=== PATIENT | female | born 1945 | race Caucasian/White ===

== ENCOUNTER 2018-06-10 16:12 | Outpatient (REF) | payer OTHER, SELFPAY ==
--- NOTE | 2018-06-10 15:00 | PAPNONF_PTH ---
PATIENT: Elizabeth Chester LOC: [facility] U#:[id number] AGE/SX: 73/F ROOM: RE06/10/[address]: Marleen Warren : 1945 BED: DIS: 06/10/2018 SPEC #: [id number] RECD: 06/11/18 12:58 STATUS: SD REJazlyn #: [id number] CARROL: 06/10/18 15:[address]: Marleen Warren DEPT: [facility] Cytology RECD BY: Nathaly Marks Tissues: 1 - BODY FLUID CYTO(SPUTUM/URINE)UV Procedures: BODY FLUID CYTO(URINE/SPUTUM) Comments: [id number] (TOTAL VOLUME = 90 ml's) (45 ml's URINE & 45 ml's CYTOLYT ADDED IN 2 CONTAINERS)
== END 2018-06-10 16:32 ==
LOC: NCHCN 16:12
PROVIDERS: PCP Family Medicine; Visit Provider Family Medicine
DX: R31.0 Gross hematuria (principal); R82.8 Abnormal findings on cytological and histological examination of urine
CPT/HCPCS: 88104

== ENCOUNTER 2018-07-20 15:42 | Outpatient (REF) | payer OTHER, MEDICAID, SELFPAY ==
[2018-07-20 18:41] LABS: Abs Immature Grans 0.02 k/cumm (0.0-0.09); Absolute Basophil Count 0.02 k/cumm (0.0-0.2); Absolute Eosinophil Count 0.13 k/cumm (0.0-0.7); Absolute Lymphocyte Count 1.35 k/cumm (1.2-3.4); Absolute Monocyte Count 0.58 k/cumm (0.11-0.7); Absolute Neutrophil Count 6.59 k/cumm (1.2-6.7); Basophils % 0.2; Eosinophils % 1.5; HCT 42.8 % (36.0-46.0); Immature Grans % 0.2; Lymphocytes % 15.5; Mean Corp. HGB Concentration 32.7 g/dL (32.0-36.0); Mean Corpuscular Hemoglobin 31.4 pg (27.0-33.0); Mean Platelet Volume 10.7 fL (8.0-11.0); Monocytes % 6.7; Neutrophils % 75.9; Platelet Count 281 x1000/uL (130-400); RBC 4.46 m/cumm (4.00-5.20); White Blood Cell Count 8.69 k/cumm (4.4-10.8)
[2018-07-20 18:59] LABS: ALT 24 U/L (12-78); AST 20 U/L (15-37); Albumin 3.2 g/dL (3.4-5.0); Alkaline Phosphatase 82 U/L (46-116); Anion Gap 11.7 mmol/L (3-11); BUN 13 mg/dL (7-18); Bilirubin, Total 0.3 mg/dL (0.2-1.0); CO2 27.3 mmol/L (21.0-32.0); CREATININE 1.03 mg/dL (0.55-1.02); Calcium 9.3 mg/dL (8.5-10.1); Chloride 96 mmol/L (98-107); Estimated GFR 52.53 (mL/min/1.73m2); Glucose 446 mg/dL (70-100); Potassium 4.3 mmol/L (3.5-5.1); Sodium 135 mmol/L (136-145); TSH (W/Ref FT4) 1.78 uIU/mL (0.358-3.74); Total Protein 6.8 g/dL (6.4-8.2)
== END 2018-07-20 16:02 ==
LOC: NCHCN 15:42
PROVIDERS: PCP Family Medicine; Visit Provider Family Medicine
DX: I10 Essential (primary) hypertension (principal); R53.81 Other malaise; R31.0 Gross hematuria
CPT/HCPCS: 80053; 84443; 85025

== ENCOUNTER 2018-07-25 15:52 | Outpatient (REF) | payer OTHER, MEDICAID, SELFPAY ==
[2018-07-27 11:19] LABS: Campylobacter PCR SEE COMMENTS; Salmonella PCR SEE COMMENTS; Shiga Toxin PCR SEE COMMENTS; Shigella/Enteroinvasive Ecoli SEE COMMENTS
== END 2018-07-25 16:12 ==
LOC: NCHCN 15:52
PROVIDERS: PCP Family Medicine; Visit Provider Family Medicine
DX: R19.7 Diarrhea, unspecified (principal)
CPT/HCPCS: 87329; 87505; 83630; 85613; 87324

== ENCOUNTER 2018-10-05 20:16 | Inpatient (IN) | payer MEDICARE, MEDICAID, SELFPAY ==
[2018-10-05] VITALS (35 sets, daily range): BP systolic 87–135; BP diastolic 32–104; PULSE 88–124; RESP 13–38; TEMP 36.5–37.4; O2SAT 92–95
--- NOTE | 2018-10-05 20:27 | DI.RAD_ITS ---
SYMPTOM/DIAGNOSIS: WEAKNESS, TACHYCARADIA, R/O PNEUMONIA AP AND LATERAL CHEST: Comparison is made with 15 Jan 2017. The heart is enlarged. Abdominal soft tissues partially obscure the lung bases on the AP view. There are mild underlying fibrotic changes. No superimposed infiltrate, effusion or pulmonary edema seen. IMPRESSION: No acute abnormality.
--- NOTE | 2018-10-05 20:36 | ED.GENADUL_ITS ---
Discharge Plan Disposition Patient Disposition: [facility] INPATIENT Condition: Stable Discharge Details Chief Complaint: Nausea/Vomit/Diar Clinical Impression: Atrial fibrillation with rapid ventricular response, UTI (urinary tract infection), Vomiting, Dehydration Primary Care Provider: Marleen Warren ED Provider: Lynne Caputo Home Meds and New Rx's Prescriptions: No Action multivitamin [Daily Value] 1 EACH tablet 1 ea PO DAILY RF: 0 metformin 500 MG tablet 1,000 mg PO BID RF: 0 lutein 20 MG capsule 20 mg PO DAILY RF: 0 Xolegel 45 GM gel 45 gm Topical PRN PRNRF: 0 Victoza 2-Tree 0.6 MG/0.1 ML pen injector 1.8 mg SQ DAILY RF: 0 melatonin 10 MG capsule 10 mg PO HS RF: 0 mecobalamin (vitamin B12) 1,000 MCG tablet,disintegrating 1,000 mcg Sublingual DAILY RF: 0 ascorbic acid (vitamin C) [Vitamin C] 1,000 MG tablet extended release 1,000 mg PO DAILY RF: 0 cholecalciferol (vitamin D3) 1,000 UNIT capsule 1,000 unit PO DAILY RF: 0 omega-3 fatty acids-fish oil [Fish Oil] 1 EACH capsule 1 ea PO DAILY RF: 0 Calcium Magnesium 1 EACH tablet 1 ea PO RF: 0 losartan 50 MG tablet 50 mg PO DAILY RF: 0 celecoxib [Celebrex] 200 MG capsule 200 mg PO DAILY RF: 0 metoprolol tartrate 100 MG tablet 100 mg PO BID RF: 0 prednisone 5 MG tablet 5 mg PO DAILY RF: 0 diazepam 2 MG tablet 2 mg PO Q6H PRN RF: 0 Co [id number] E-Fish Oil 1 EACH capsule 1 cap PO DAILY RF: 0 duloxetine [Cymbalta] 60 MG capsule,delayed release(DR/EC) 60 mg PO DAILY RF: 0 Livalo 2 MG tablet 2 mg PO DAILY RF: 0 Pradaxa 150 MG capsule 150 mg PO BID RF: 0 Novolog Flexpen U-100 Insulin 100 UNIT/ML insulin pen SQ TID RF: 0 Lantus Solostar U-100 Insulin 100 UNIT/ML insulin pen 90 unit SQ QAM RF: 0 Medical Decision Making 73-year-old female with a history of morbid obesity, atrial for ablation, diabetes, hyperlipidemia, high cholesterol who presents with weakness this evening, diarrhea for the past 2 weeks and vomiting for 1 day both of which have been resolved. Heart rate 160s on arrival per EMS, decreased to 140s in route and given 5 mg metoprolol IV. Glucose 203. Patient has not taken any of her evening medications. Heart rate on arrival 110s to 120s, increased to 140s with any movement in bed. Patient is morbidly obese. Remainder vitals within normal limits. She appears nontoxic. No focal deficits. No evidence of trauma on exam. Abdomen soft nontender. We will give patient her evening dose of metoprolol 100 mg. We will check cardiac work-up, chest x-ray, urinalysis. No evidence of trauma do not see an indication for further imaging due to lack of reported injury. We will continue IV fluids. EKG notes a rate of 130s in atrial fibrillation. No acute ST findings. 2129 --labs and imaging reviewed. Normal white blood cell count. Sodium 130. Glucose 213. Normal bicarb. Magnesium 1.3. Troponin negative. Urinalysis notes UTI. Chest x-ray unremarkable. Heart rate still in the 110s to 130s. Suspect this may be also associated with dehydration and infection. BP stable. We will give a dose of Cardizem IV. 2154 --heart rate improved to high 90s to low 100s. concerned with patient going home due to her extreme weakness. Lactate 2.3. In setting of UTI, persistent tachycardia not relieved with patient's oral medication, will admit for IV fluids, IV antibiotics and PT and reassessment of electrolytes in am. 2199 --Case discussed with hospitalist -accepts patient for admission. Medical Records Medical records reviewed: Yes I reviewed the patient's medical records. Imaging Data Radiologic Study: Radiologist's impression: XR Chest, 2 Views EXAM DATE/TIME: 10/05/2018 8:28 PM CLINICAL HISTORY: 73 years old, female; Other: Tachycardia, weakness; Patient HX: Weakness, tachycardia; Per PT: Cough 3 days; Additional info: R/O pneumonia TECHNIQUE: Imaging protocol: XR of the chest, 2 views. COMPARISON: CR PORTABLE CHEST ONE VIEW 01/15/2017 9:10 AM FINDINGS: Lungs: There is coarsening of the perihilar interstitial markings. No focal consolidation or pulmonary edema. Pleural space: No pleural effusion. No pneumothorax. Heart/Mediastinum: There is mild cardiomegaly, stable. Bones/joints: Symmetric degenerative changes of the acromioclavicular joints. No acute osseous finding. Soft tissues: No focal soft tissue abnormailty. IMPRESSION: 1. No focal consolidative airspace disease. Coarsening of the perihilar interstitial markings. 2. Mild cardiomegaly. Lab Data Lab results reviewed: Yes I reviewed the patient's lab results. 10/05/18 21:31 Blood Blood Culture - Pending 10/05/18 21:18 Blood Blood Culture - Pending 10/05/18 20:30 Urine - Reflex from Ua Urine Culture - Pending Laboratory Tests Range/Units 10/05/18 10/05/18 10/05/18 20:30 20:35 20:35 WBC (4.4-10.8) k/cumm 10.02 RBC (4.00-5.20) m/cumm 4.31 Hgb (12.0-15.5) g/dL 13.6 Hct (36.0-46.0) % 40.2 MCV (80-95) fL 93.3 MCH (27.0-33.0) pg 31.6 MCHC (32.0-36.0) g/dL 33.8 RDW (11.7-14.6) % 14.3 Plt Count (130-400) x1000/uL 206 MPV (8.0-11.0) fL 9.5 Immature Gran % 0.4 Neutrophils % 85.1 Lymphocytes % 7.0 Monocytes % 7.1 Eosinophils % 0.3 Basophils % 0.1 Absolute Neutrophils (1.2-6.7) k/cumm 8.53 H Absolute Lymphocytes (1.2-3.4) k/cumm 0.70 L Absolute Monocytes (0.11-0.7) k/cumm 0.71 H Absolute Eosinophils (0.0-0.7) k/cumm 0.03 Absolute Basophils (0.0-0.2) k/cumm 0.01 Sodium (136-145) mmol/L 130 L Potassium (3.5-5.1) mmol/L 4.1 Chloride (98-107) mmol/L 94 L Carbon Dioxide (21.0-32.0) mmol/L 25.8 Anion Gap (3-11) mmol/L 10.2 BUN (7-18) mg/dL 14 Creatinine (0.55-1.02) mg/dL 0.96 Estimated GFR/1.73 m2 (mL/min/1.73m2) 56.97 Glucose (70-100) mg/dL 213 H Lactate (0.6-1.4) mmol/l Calcium (8.5-10.1) mg/dL 9.3 Magnesium (1.8-2.4) mg/dL 1.3 L Total Bilirubin (0.2-1.0) mg/dL 1.2 H AST (15-37) U/L 21 ALT (12-78) U/L 24 Alkaline Phosphatase (46-116) U/L 96 Troponin I (0.00-0.06) ng/mL < 0.05 Total Protein (6.4-8.2) g/dL 7.1 Albumin (3.4-5.0) g/dL 2.7 L Urine Color (Yellow) Yellow Urine Clarity (Clear) Sl cloudy Urine pH (5-8) 5.5 Ur Specific [place] (1.005-1.025) 1.020 Urine Protein (Negative) mg/dL 30 H Urine Ketones (Negative) mg/dL Negative Urine Blood (Negative) Moderate H Urine Nitrite (Negative) Positive H Urine Bilirubin (Negative) Negative Urine Urobilinogen (Up TO 0.2) EU/dL 1.0 H Ur Leukocyte Esterase (Negative) Small H Urine RBC Not Applicable Urine WBC (0-5) HPF >50 Ur Epithelial Cells Not Applicable Urine Crystals Not Applicable Urine Bacteria (Negative) HPF Packed Urine Mucus Not Applicable Ur Culture Indicated? Yes Urine Glucose (Negative) mg/dL Negative Range/Units 10/05/18 21:18 WBC (4.4-10.8) k/cumm RBC (4.00-5.20) m/cumm Hgb (12.0-15.5) g/dL Hct (36.0-46.0) % MCV (80-95) fL MCH (27.0-33.0) pg MCHC (32.0-36.0) g/dL RDW (11.7-14.6) % Plt Count (130-400) x1000/uL MPV (8.0-11.0) fL Immature Gran % Neutrophils % Lymphocytes % Monocytes % Eosinophils % Basophils % Absolute Neutrophils (1.2-6.7) k/cumm Absolute Lymphocytes (1.2-3.4) k/cumm Absolute Monocytes (0.11-0.7) k/cumm Absolute Eosinophils (0.0-0.7) k/cumm Absolute Basophils (0.0-0.2) k/cumm Sodium (136-145) mmol/L Potassium (3.5-5.1) mmol/L Chloride (98-107) mmol/L Carbon Dioxide (21.0-32.0) mmol/L Anion Gap (3-11) mmol/L BUN (7-18) mg/dL Creatinine (0.55-1.02) mg/dL Estimated GFR/1.73 m2 (mL/min/1.73m2) Glucose (70-100) mg/dL Lactate (0.6-1.4) mmol/l 2.3 H Calcium (8.5-10.1) mg/dL Magnesium (1.8-2.4) mg/dL Total Bilirubin (0.2-1.0) mg/dL AST (15-37) U/L ALT (12-78) U/L Alkaline Phosphatase (46-116) U/L Troponin I (0.00-0.06) ng/mL Total Protein (6.4-8.2) g/dL Albumin (3.4-5.0) g/dL Urine Color (Yellow) Urine Clarity (Clear) Urine pH (5-8) Ur Specific [place] (1.005-1.025) Urine Protein (Negative) mg/dL Urine Ketones (Negative) mg/dL Urine Blood (Negative) Urine Nitrite (Negative) Urine Bilirubin (Negative) Urine Urobilinogen (Up TO 0.2) EU/dL Ur Leukocyte Esterase (Negative) Urine RBC Urine WBC (0-5) HPF Ur Epithelial Cells Urine Crystals Urine Bacteria (Negative) HPF Urine Mucus Ur Culture Indicated? Urine Glucose (Negative) mg/dL ECG Data Attestation: I personally reviewed and interpreted this ECG (s) as follows: Interpretation: Rate of 126, atrial fibrillation, no acute ST elevation or depression. QTc 442. QRS 96. HPI General Mode of arrival: EMS . Date/Time Provider Initiated Documentation: 10/05/18 20:25 . Limitations to Documentation: no limitations . Information obtained by: patient and family . HPI Narrative: Patient is a 73-year-old female with history of atrial fibrillation, diabetes, hypertension, hyperlipidemia who presents with episode of weakness tonight causing inability to ambulate and her lowered herself to the ground and she was unable to get up. Patient admits to 2 weeks of diarrhea which has been stopped recently and now she is more constipated. She states her last bowel movement was today. She also admits to vomiting multiple times a few days ago but has not vomited for the past 2 days. She states since then she has not been eating much and felt more weak. She states this evening she got up to walk to the bathroom and felt weak and could not walk any farther and her lowered her slowly to the ground. She denies any injury to her head, extremities or torso. She denies any chest pain, shortness of breath or dizziness prior to this. She states she has chronic shortness of breath but states is no worse than usual. She denies any known fever, urinary symptoms or abdominal pain. She states yesterday she had significant abdominal pain but states this has been resolved since then. She has not taken any of her evening medications this evening yet. EMS states her heart rate was 160s for which they gave 5 mg of metoprolol IV. Glucose 203. Denies recent antibiotics or travel. Related Data Home Medications Medication Instructions Recorded Confirmed Co E-24-Hvcutol E-Fish Oil 1 cap PO DAILY 07/21/13 10/05/18 Lantus Solostar U-100 Insulin 90 unit SQ QAM 07/21/13 10/05/18 Novolog Flexpen U-100 Insulin 0 unit SQ TID 07/21/13 10/05/18 Pradaxa 150 mg PO BID 07/21/13 01/13/17 celecoxib [Celebrex] 200 mg PO DAILY 07/21/13 10/05/18 diazepam 2 mg PO Q6H PRN 07/21/13 10/05/18 duloxetine [Cymbalta] 60 mg PO DAILY 07/21/13 10/05/18 losartan 50 mg PO DAILY 07/21/13 10/05/18 metoprolol tartrate 100 mg PO BID 07/21/13 10/05/18 pitavastatin calcium [Livalo] 2 mg PO DAILY 07/21/13 10/05/18 prednisone 5 mg PO DAILY 07/21/13 10/05/18 Victoza 2-Tree 1.8 mg SQ DAILY ml 12/23/16 10/05/18 Xolegel 45 gm TOPICAL PRN PRN script 12/23/16 10/05/18 lutein 20 mg PO DAILY 12/23/16 10/05/18 mecobalamin (vitamin B12) 1,000 mcg SUBLINGUAL DAILY 12/23/16 10/05/18 melatonin 10 mg PO HS 12/23/16 10/05/18 metformin 1,000 mg PO BID tab-cap 12/23/16 10/05/18 multivitamin [Daily Value] 1 ea PO DAILY 12/23/16 10/05/18 Ca carb-Ca gluc-Mg ox-Mg gluco 1 ea PO 10/31/17 [Calcium Magnesium Caplet] ascorbic acid (vitamin C) [Vitamin 1,000 mg PO DAILY 10/31/17 10/05/18 C] cholecalciferol (vitamin D3) 1,000 unit PO DAILY 10/31/17 10/05/18 omega-3 fatty acids-fish oil [Fish 1 ea PO DAILY 10/31/17 10/05/18 Oil 1,000 Mg Capsule] Allergies Allergy/AdvReac Type Severity Reaction Status Date / Time atorvastatin AdvReac Intermediate leg cramps Unverified 10/05/18 20:45 lisinopril AdvReac Intermediate cough Unverified 10/05/18 20:45 General Stated Complaint: Nausea/Vomit/Diar REGAN: 2 Review of Systems Review of Systems All systems reviewed & are unremarkable except as noted in HPI and below Constitutional Reports as per HPI, Denies chills and Denies fever(s) Eyes Denies blurry vision ENT Denies dizziness, Denies sore throat and Denies throat swelling Cardiovascular Denies chest pain and Denies dyspnea Respiratory Denies cough and Denies dyspnea Gastrointestinal Denies abdominal pain, Denies diarrhea and Reports vomiting Genitourinary Denies hematuria and Denies dysuria Musculoskeletal Denies back pain and Denies numbness Integumentary/Breasts Denies lesions and Denies rash Neurologic Denies dizziness, Denies focal weakness and Denies numbness Allergic/Immunologic Denies throat swelling PFSH Medical History Hx of hyperlipidemia (Acute) Atrial fibrillation (Chronic) Diabetes (Chronic) HTN (hypertension) (Chronic) Surgical History History of hysterectomy (Chronic) Hx of cholecystectomy (Chronic) Social History Smoking/Tobacco Use Status: Former Tobacco Use Drug use: Never Additional Social history: unable to assess. in room Exam Const General: cooperative and no acute distress Nutritional Appearance: obese morbidly obese [facility] Head: normal to inspection Ears: hearing grossly normal bilaterally General nose exam: external nose normal Face and sinus: normal facial exam Mouth: mucous membranes dry Eyes General: appearance normal, both eyes and all related structures Pupils: PERRL EOM: EOM intact bilaterally Neck Neck: normal visual inspection and No submandibular swelling Lymphatic: no lymphadenopathy noted Chest Chest: normal inspection of the chest and no tenderness Resp Effort & Inspection: normal respiratory effort and able to speak in complete sentences Auscultation: clear to auscultation bilaterally Cardio Rate: regular rate Rhythm: regular rhythm GI Inspection: normal to inspection Palpation: soft, not firm, not rigid and nontender Auscultation: normal bowel sounds Back/Spine/Pelvis Cervical Spine: No cervical spinal tenderness Thoracic/Lumbar Spine: thoracic and lumbar spine normal to inspection, No thoracic spinal tenderness and No lumbar spinal tenderness Pelvis: no pain with anterior-posterior compression Skin General skin exam: no rashes or lesions noted Neuro General: alert, awake and oriented x3 Cognition: normal cognition Speech: speech normal Motor: muscle tone normal throughout Sensory Exam: no sensory deficits noted Extrem General: normal to inspection, full ROM, normal capillary refill, no calf tenderness bilaterally and no edema Other: No evidence of trauma to bilateral upper or lower extremities. No pelvic instability. No tenderness to palpation of bilateral hips or knees. Psych Appearance: grossly normal Mental Status: mental status grossly normal Speech and Movement: speech and movement normal Affect: normal affect Course Vital Signs Temperature 97.7 F 10/05/18 20:19 Pulse 117 H 10/05/18 20:19 Respiratory Rate 18 10/05/18 20:19 Blood Pressure 130/89 10/05/18 20:19 Pulse Oximetry 95 10/05/18 20:19 Temperature 97.7 F 10/05/18 20:19 Temperature Source Temporal Artery Scan 06/24/19 20:19 Pulse 117 H 10/05/18 20:19 Respiratory Rate 18 10/05/18 20:19 Respiratory Effort 10/05/18 20:19 Blood Pressure 130/89 10/05/18 20:19 Blood Pressure Position Sitting 10/05/18 20:19 Pulse Oximetry 95 10/05/18 20:19 Oxygen Delivery Method Room Air 10/05/18 20:19 Oxygen Flow Rate 0 10/05/18 20:19
[2018-10-05 20:41] LABS: Abs Immature Grans 0.04 k/cumm (0.0-0.09); Absolute Basophil Count 0.01 k/cumm (0.0-0.2); Absolute Eosinophil Count 0.03 k/cumm (0.0-0.7); Absolute Monocyte Count 0.71 k/cumm (0.11-0.7); Absolute Neutrophil Count 8.53 k/cumm (1.2-6.7); Basophils % 0.1; Eosinophils % 0.3; HCT 40.2 % (36.0-46.0); HGB 13.6 g/dL (12.0-15.5); Immature Grans % 0.4; Mean Corp. HGB Concentration 33.8 g/dL (32.0-36.0); Mean Corpuscular Hemoglobin 31.6 pg (27.0-33.0); Mean Corpuscular Volume 93.3 fL (80-95); Mean Platelet Volume 9.5 fL (8.0-11.0); Monocytes % 7.1; Neutrophils % 85.1; Platelet Count 206 x1000/uL (130-400); RBC 4.31 m/cumm (4.00-5.20); RBC Distribution Width 14.3 % (11.7-14.6); White Blood Cell Count 10.02 k/cumm (4.4-10.8)
[2018-10-05] MEDS: Metoprolol 50 MG TAB 100 MG PO (20:43)
[2018-10-05] MEDS: Normal Saline 250 ML IV (20:43)
[2018-10-05 20:47] LABS: Bilirubin Negative (Negative); Blood Moderate (Negative); Clarity Sl Cloudy (Clear); Glucose Negative (Negative); Ketones Negative (Negative); Leukocyte Esterase Small (Negative); Nitrite Positive (Negative); pH 5.5 (5-8)
[2018-10-05 20:58] LABS: WBC >50 HPF (0-5)
[2018-10-05 20:59] LABS: Bacteria Packed HPF (Negative); C & S Indicated? Yes
[2018-10-05 21:01] LABS: ALT 24 U/L (12-78); AST 21 U/L (15-37); Albumin 2.7 g/dL (3.4-5.0); Alkaline Phosphatase 96 U/L (46-116); Anion Gap 10.2 mmol/L (3-11); BUN 14 mg/dL (7-18); Bilirubin, Total 1.2 mg/dL (0.2-1.0); CO2 25.8 mmol/L (21.0-32.0); CREATININE 0.96 mg/dL (0.55-1.02); Calcium 9.3 mg/dL (8.5-10.1); Chloride 94 mmol/L (98-107); Estimated GFR 56.97 (mL/min/1.73m2); Glucose 213 mg/dL (70-100); Magnesium 1.3 mg/dL (1.8-2.4); Potassium 4.1 mmol/L (3.5-5.1); Sodium 130 mmol/L (136-145); Total Protein 7.1 g/dL (6.4-8.2)
[2018-10-05 21:03] LABS: Troponin I < 0.05 ng/mL (0.00-0.06)
[2018-10-05] MEDS: MAGNESIUM SULFATE 2 GM/50 ML BAG IVPB (21:15)
[2018-10-05] MEDS: Normal Saline 250 ML 500 ML IV (21:15)
[2018-10-05] MEDS: dilTIAZem 25 MG/5 ML VIAL 15 MG IVP (21:32)
[2018-10-05 21:37] LABS: Lactate-non-spesis 2.3 mmol/l (0.6-1.4)
--- NOTE | 2018-10-05 21:44 | DI.VRAD_ITS ---
EXAM: XR Chest, 2 Views EXAM DATE/TIME: 10/05/2018 8:28 PM CLINICAL HISTORY: 73 years old, female; Other: Tachycardia, weakness; Patient HX: Weakness, tachycardia; Per PT: Cough 3 days; Additional info: R/O pneumonia TECHNIQUE: Imaging protocol: XR of the chest, 2 views. COMPARISON: CR PORTABLE CHEST ONE VIEW 01/15/2017 9:10 AM FINDINGS: Lungs: There is coarsening of the perihilar interstitial markings. No focal consolidation or pulmonary edema. Pleural space: No pleural effusion. No pneumothorax. Heart/Mediastinum: There is mild cardiomegaly, stable. Bones/joints: Symmetric degenerative changes of the acromioclavicular joints. No acute osseous finding. Soft tissues: No focal soft tissue abnormailty. IMPRESSION: 1. No focal consolidative airspace disease. Coarsening of the perihilar interstitial markings. 2. Mild cardiomegaly. Dictated and Authenticated by: Paul Lancaster MD. Ordering:TAMEKA Batista MD
[2018-10-05] MEDS: cefTRIAXone 1 GM/50 ML BAG IVPB (22:07)
--- NOTE | 2018-10-05 23:54 | HPE_ITS ---
Date of service: 10/05/18 Time of Service: 23:24 Assessment and Plan (1) Weakness: Current visit: Yes Status: Acute I think Ms. Chester's weakness is multifactorial. There are no signs of focal neurologic findings suggesting a cerebrovascular cause. Does appear that she has a urinary tract infection, which will be treated. Her atrial fibrillation was rapid on presentation, likely contributing. She also had recent prolonged episode of diarrhea which may have contributed to some dehydration as well as hypomagnesemia. With the cardiomegaly on chest x-ray and the fatigue and slight dyspnea, there is some concern for congestive heart failure separate from her atrial fibrillation. I have added a BNP and will consider echocardiogram if those results are concerning. Her EKG and troponin are reassuring there is no acute ischemia. (2) UTI (urinary tract infection): Current visit: Yes Status: Acute She does not have significant urinary symptoms, with her history of no hyd ronephrosis and E. coli sepsis and her weakness, I certainly think we should treat this as a true UTI. Continue ceftriaxone with cultures pending. With a history of hydronephrosis, we will repeat the renal ultrasound to reassess this possibly complicating factor in your UTI. (3) Hyponatremia: Current visit: No Status: Acute This is a chronic issue with her sodium down to 130 from 134 recently in the clinic. She does seem to be a little dehydrated at presentation. We will give her some gentle normal saline (4) Hypomagnesemia: Current visit: No Status: Acute As above this may be contributing to her fatigue. She is been repleted IV and we will follow in the morning and give additional IV supplementation. Oral segmentation may contribute to her chronic loose stools. (5) Atrial fibrillation: Current visit: No Status: Acute Patient was initially in atrial fibrillation with rapid ventricular response. She got 1 dose of diltiazem IV with good response. Decision was made not to continue diltiazem drip, but rather try to manage with oral medications while we treat her infection and dehydration. We will monitor her on telemetry. (6) Diabetes: Current visit: No Status: Acute Last A1c was 8.6 in August, and she has been a difficult to control diabetic. We will continue her outpatient regimen with the exception of metformin while inpatient. We will titrate her insulin as needed. (7) Rheumatoid arthritis: Current visit: Yes Status: Chronic I do not see any sign of active inflammatory arthritis. With the infection, I will bump up her prednisone to 3 times its normal 5 mg dose. I would be more aggressive with stress dose steroids if there are signs of overt renal insufficiency such as hypotension. (8) Adjustment disorder: Current visit: Yes Status: Acute Psychosocial stressors seem to be playing a role in her presentation along with the many medical issues noted above. We will continue her outpatient bupropion that was recently started by her primary care, as it has helped her mood. (9) DVT prophylaxis: Current visit: Yes Status: Acute On Pradaxa for atrial fibrillation (10) Discharge planning issues: Current visit: Yes Status: Acute Stable and admitted to medical floor with telemetry. Full code. History of Present Illness Chief Complaint: Weakness Narrative: 73-year-old female with type 2 diabetes, history of rheumatoid arthritis on chronic prednisone and wheelchair-bound, chronic atrial fibrillation, and history of E. coli sepsis who is presenting with 3 days of progressive general weakness and fatigue. The patient presented after her called life alert when Mrs. Chester fell to the floor trying to get up out of her chair, and he could not help her back up. Fall was gradual and assisted by her , did not result in any trauma. The weakness is nonfocal. Is associated with some lightheadedness. There is no acute onset, though she has definitely noticed it worse since Friday prior to admission. She has felt similarly when she first got diagnosed with atrial fibrillation in the past. Patient also states she has not been feeling well for the past 3 weeks or so. She had several weeks of loose stools with a negative evaluation with her primary care physician, though this has resolved and she has been constipated for the past 3 days. She also describes feeling like she is going to have a nervous breakdown due to the stress of moving apartments, as she needs to be ready to move in 3 days to an apartment that can accommodate her with her disability. Review of Systems Review of Systems No recent weight change. Appetite okay. Has occasional headaches, not currently. No vision changes or eye pain. No hearing changes. No sore throat or nasal congestion. No swallowing or speech changes. No chest pain or feeling of palpitations. No change in edema noted. No cough, sputum production, or wheezing. She has felt a little more short of breath over the past few days when exerting herself. She had some abdominal pain with constipation yesterday, but this is resolved. She has had hard stools for 3 days after several weeks of loose stools and no blood or melanotic stools. She vomited twice on Friday, but not since. No current nausea. She denies dysuria or frequency. No vaginal discharge or bleeding. No new joint pain or joint swelling. No rashes or other skin lesions. No bleeding or bruising. mood has improved since taking Wellbutrin, but she still feels stressed. [facility] Medical History Rheumatoid arteritis (Acute) Hx of hyperlipidemia (Acute) Atrial fibrillation (Chronic) Diabetes (Chronic) HTN (hypertension) (Chronic) Surgical History History of hysterectomy (Chronic) Hx of cholecystectomy (Chronic) Social History Smoking/Tobacco Use Status: Former Tobacco Use Drug use: Never Additional Social history: Lives with her Valeriy on [facility] in [facility], moving to handicapped apartment They moved up here from [place] to be near their daughter. 2 sons in [facility]. 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 Meds Home Medications Medication Instructions Recorded Confirmed Type Co F-01-Srgmvmi E-Fish Oil 1 cap PO DAILY 07/21/13 10/05/18 History Lantus Solostar U-100 Insulin 90 unit SQ QAM 07/21/13 10/05/18 History Novolog Flexpen U-100 Insulin 0 unit SQ TID 07/21/13 10/05/18 History Pradaxa 150 mg PO BID 07/21/13 10/05/18 History celecoxib [Celebrex] 200 mg PO DAILY 07/21/13 10/05/18 History diazepam 2 mg PO Q6H PRN 07/21/13 10/05/18 History duloxetine [Cymbalta] 60 mg PO DAILY 07/21/13 10/05/18 History losartan 50 mg PO DAILY 07/21/13 10/05/18 History metoprolol tartrate 100 mg PO BID 07/21/13 10/05/18 History pitavastatin calcium [Livalo] 2 mg PO DAILY 07/21/13 10/05/18 History prednisone 5 mg PO DAILY 07/21/13 10/05/18 History Victoza 2-Tree 18 mg SQ DAILY ml 12/23/16 10/05/18 History Xolegel 45 gm TOPICAL PRN PRN script 12/23/16 10/05/18 History lutein 20 mg PO DAILY 12/23/16 10/05/18 History mecobalamin (vitamin B12) 1,000 mcg SUBLINGUAL DAILY 12/23/16 10/05/18 History melatonin 10 mg PO HS 12/23/16 10/05/18 History metformin 1,000 mg PO BID tab-cap 12/23/16 10/05/18 History multivitamin [Daily Value] 1 ea PO DAILY 12/23/16 10/05/18 History Ca carb-Ca gluc-Mg ox-Mg gluco 1 ea PO 10/31/17 History [Calcium Magnesium Caplet] ascorbic acid (vitamin C) [Vitamin 1,000 mg PO DAILY 10/31/17 10/05/18 History C] cholecalciferol (vitamin D3) 1,000 unit PO DAILY 10/31/17 10/05/18 History omega-3 fatty acids-fish oil [Fish 1 ea PO DAILY 10/31/17 10/05/18 History Oil 1,000 Mg Capsule] Allergies Allergy/AdvReac Type Severity Reaction Status Date / Time atorvastatin AdvReac Intermediate leg cramps Unverified 10/05/18 20:45 lisinopril AdvReac Intermediate cough Unverified 10/05/18 20:45 Exam Narrative Exam Narrative: General: Alert and oriented x3, no acute distress sitting up and speaking comfortably while lying in bed. HEENT: Normocephalic, atraumatic. Pupils equal round reactive to light with extraocular motion intact. Conjunctive are clear and no icterus. Moist mucous membranes, oropharynx benign. Neck is supple with no masses or lymphadenopathy or thyromegaly noted. Lungs: Clear to auscultation bilaterally with normal effort. No rales or wheezes. CV: Irregularly irregular, slightly tachycardic, no murmurs gallops. Thorax: No CVA tenderness. Abdomen: Active bowel sounds, soft, nontender nondistended with no masses and no suprapubic tenderness. Extremities: No joint redness or swelling. Trace to 1+ puffy edema in shins bilaterally, minimal pitting. Skin: No rashes or sniffing and bruising. Neurologic: Cranial nerves grossly intact. Normal movement in 4 extremities, normal sensation light touch. Normal speech and coordination. Results CXR: 1. No focal consolidative airspace disease. Coarsening of the perihilar interstitial markings. 2. Mild cardiomegaly. Imaging Additional studies: afib,rate 136, nl axis, no ischemic changes EKG: image reviewed Labs : 10/05/18 20:35 10/05/18 20:35 Laboratory Results - last 24 hr 10/05/18 10/05/18 10/05/18 20:30 20:35 20:35 WBC 10.02 RBC 4.31 Hgb 13.6 Hct 40.2 MCV 93.3 MCH 31.6 MCHC 33.8 RDW 14.3 Plt Count 206 MPV 9.5 Immature Gran % 0.4 Neutrophils % 85.1 Lymphocytes % 7.0 Monocytes % 7.1 Eosinophils % 0.3 Basophils % 0.1 Absolute Neutrophils 8.53 H Absolute Lymphocytes 0.70 L Absolute Monocytes 0.71 H Absolute Eosinophils 0.03 Absolute Basophils 0.01 Sodium 130 L Potassium 4.1 Chloride 94 L Carbon Dioxide 25.8 Anion Gap 10.2 BUN 14 Creatinine 0.96 Estimated GFR/1.73 m2 56.97 Glucose 213 H Lactate Calcium 9.3 Magnesium 1.3 L Total Bilirubin 1.2 H AST 21 ALT 24 Alkaline Phosphatase 96 Troponin I < 0.05 Total Protein 7.1 Albumin 2.7 L Urine Color Yellow Urine Clarity Sl cloudy Urine pH 5.5 Ur Specific Bradley 1.020 Urine Protein 30 H Urine Ketones Negative Urine Blood Moderate H Urine Nitrite Positive H Urine Bilirubin Negative Urine Urobilinogen 1.0 H Ur Leukocyte Esterase Small H Urine RBC Not Applicable Urine WBC >50 Ur Epithelial Cells Not Applicable Urine Crystals Not Applicable Urine Bacteria Packed Urine Mucus Not Applicable Ur Culture Indicated? Yes Urine Glucose Negative 10/05/18 21:18 WBC RBC Hgb Hct MCV MCH MCHC RDW Plt Count MPV Immature Gran % Neutrophils % Lymphocytes % Monocytes % Eosinophils % Basophils % Absolute Neutrophils Absolute Lymphocytes Absolute Monocytes Absolute Eosinophils Absolute Basophils Sodium Potassium Chloride Carbon Dioxide Anion Gap BUN Creatinine Estimated GFR/1.73 m2 Glucose Lactate 2.3 H Calcium Magnesium Total Bilirubin AST ALT Alkaline Phosphatase Troponin I Total Protein Albumin Urine Color Urine Clarity Urine pH Ur Specific Bradley Urine Protein Urine Ketones Urine Blood Urine Nitrite Urine Bilirubin Urine Urobilinogen Ur Leukocyte Esterase Urine RBC Urine WBC Ur Epithelial Cells Urine Crystals Urine Bacteria Urine Mucus Ur Culture Indicated? Urine Glucose Last Vital Signs Temp 36.8 C 10/05/18 21:22 Pulse 114 H 10/05/18 22:46 Resp 20 10/05/18 21:42 BP 102/89 10/05/18 22:46 Pulse Ox 93 L 10/05/18 21:34
[2018-10-06] VITALS (19 sets, daily range): BP systolic 111–154; BP diastolic 65–92; PULSE 81–134; RESP 14–20; TEMP 36.5–38.6; O2SAT 92–97
[2018-10-06] MEDS: POTASSIUM CHLORIDE/0.9% NACL 1,000 ML 125 MEQ IV ×2 (00:36→07:40)
[2018-10-06 02:14] LABS: NT-proBNP 1068 pg/mL
[2018-10-06] MEDS: Acetaminophen 325 MG TAB PO (03:33)
[2018-10-06] MEDS: Normal Saline Flush 10 ML SYR (04:44)
[2018-10-06] MEDS: dilTIAZem 25 MG/5 ML VIAL 15 MG IVP (04:44)
[2018-10-06] MEDS: Cyanocobalamin 500 MCG TAB 1000 MCG PO (07:40)
[2018-10-06] MEDS: Cholecalciferol (Vitamin D3) 1,000 UNIT TAB 1000 UNITS PO (07:41)
[2018-10-06] MEDS: buPROPion-CR 100 MG TABCR PO ×2 (07:41→20:27)
[2018-10-06] MEDS: Omega-3 Fatty Acids 1000 MG CAP PO (07:41)
[2018-10-06] MEDS: predniSONE 5 MG TAB 15 MG PO (07:42)
[2018-10-06] MEDS: Losartan 50 MG TAB PO (07:42)
[2018-10-06] MEDS: DULoxetine 30 MG CAP 60 MG PO (07:42)
[2018-10-06] MEDS: Insulin Glargine 300 UNITS/3 ML PEN 45 UNITS SC (07:43)
[2018-10-06] MEDS: Multivitamin TAB 1 TAB PO (07:43)
[2018-10-06] MEDS: Insulin Aspart 300 UNITS/3 ML PEN 30 UNITS SC ×3 (07:43→16:36)
[2018-10-06] MEDS: Metoprolol 50 MG TAB 100 MG PO ×2 (07:49→20:28)
--- NOTE | 2018-10-06 07:57 | PDOC.CMIN ---
- If Service Date Differs Date of service: 10/06/18 Time of Service: 07:58 Care Management Initial Assess REASON FOR HOSPITALIZATION:: weakness, uti PAST MEDICAL HISTORY/PAST SURGICAL HISTORY:: Medical History: Rheumatoid arteritis (Acute). Hx of hyperlipidemia (Acute). Atrial fibrillation (Chronic). Diabetes (Chronic). HTN (hypertension) (Chronic). Surgical History: History of hysterectomy (Chronic). Hx of cholecystectomy (Chron PREVIOUS FUNCTIONAL STATUS/SOCIAL/FAMILY SUPPORTS:: Ruba lives in an apartment with her in [facility]. They are planning to move to a handicap accessible apartment on Friday. They have been waiting for 3 1/2 years for this opportunity. They have 6 children between them. The closest one is Ruba's daughter who lives in [facility]. ADVANCE DIRECTIVES:: None on file at [facility]. Has not completed and isn't sure she is interested. Has patient been provided with information about the portal?: No Did the patient sign up for the portal?: Yes (previously) CODE STATUS:: Full Code INSURANCE COVERAGE / FINANCIAL ISSUES:: Medicare. Medicaid Vt CURRENT HOME/COMMUNITY SERVICES/EQUIPMENT:: wheelchair bound. Choices for Care - highest needs. Has help 2 days/week for assistance with bathing and light housework. PRIMARY CARE PHYSICIAN:: Marleen Warren POTENTIAL DISCHARGE NEEDS:: Follow up with PCP and discharge plan of care PATIENT/FAMILY EDUCATION NEEDS:: Discharge plan, limitations, follow up plan, Ask me Three ANTICIPATED BARRIERS TO DISCHARGE:: none identified TRANSPORTATION:: to be determined based on discharge plan PLAN:: Ruba is being evaluated for causes of her extreme weakness. Ultimate discharge plan will be determined by hospital course. Currently has [facility] in home. CM to provide support to family and patient and discharge planning process.
[2018-10-06 07:58] LABS: Anion Gap 10.9 mmol/L (3-11); BUN 15 mg/dL (7-18); CO2 24.1 mmol/L (21.0-32.0); CREATININE 0.91 mg/dL (0.55-1.02); Chloride 96 mmol/L (98-107); Glucose 227 mg/dL (70-100); Magnesium 1.6 mg/dL (1.8-2.4); Potassium 4.2 mmol/L (3.5-5.1); Sodium 131 mmol/L (136-145)
--- NOTE | 2018-10-06 08:06 | INITIAL_ITS ---
- If Service Date Differs Date of service: 10/06/18 Time of Service: 07:58 Care Management Initial Assess REASON FOR HOSPITALIZATION:: weakness, uti PAST MEDICAL HISTORY/PAST SURGICAL HISTORY:: Medical History: Rheumatoid arteritis (Acute). Hx of hyperlipidemia (Acute). Atrial fibrillation (Chronic). Diabetes (Chronic). HTN (hypertension) (Chronic). Surgical History: History of hysterectomy (Chronic). Hx of cholecystectomy (Chron PREVIOUS FUNCTIONAL STATUS/SOCIAL/FAMILY SUPPORTS:: Ruba lives in an apartment with her in [facility]. They are planning to move to a handicap accessible apartment on Friday. They have been waiting for 3 1/2 years for this opportunity. They have 6 children between them. The closest one is Ruba's daughter who lives in [facility]. ADVANCE DIRECTIVES:: None on file at [facility]. Has not completed and isn't sure she is interested. Has patient been provided with information about the portal?: No Did the patient sign up for the portal?: Yes (previously) CODE STATUS:: Full Code INSURANCE COVERAGE / FINANCIAL ISSUES:: Medicare. Medicaid Vt CURRENT HOME/COMMUNITY SERVICES/EQUIPMENT:: wheelchair bound. Choices for Care - highest needs. Has help 2 days/week for assistance with bathing and light housework. PRIMARY CARE PHYSICIAN:: Marleen Warren POTENTIAL DISCHARGE NEEDS:: Follow up with PCP and discharge plan of care PATIENT/FAMILY EDUCATION NEEDS:: Discharge plan, limitations, follow up plan, Ask me Three ANTICIPATED BARRIERS TO DISCHARGE:: none identified TRANSPORTATION:: to be determined based on discharge plan PLAN:: Ruba is being evaluated for causes of her extreme weakness. Ultimate discharge plan will be determined by hospital course. Currently has [facility] in home. CM to provide support to family and patient and discharge planning process.
[2018-10-06 08:10] LABS: TSH 1.08 uIU/mL (0.358-3.74)
[2018-10-06] MEDS: MAGNESIUM SULFATE 1 GM/100 ML BAG IVPB (09:59)
[2018-10-06] MEDS: dilTIAZem 30 MG TAB PO (10:28)
--- NOTE | 2018-10-06 12:00 | PT.INIE ---
Date of service: 10/06/18 Time of Service: 09:16 PT Notes Inpatient Physical Therapy Evaluation Date: 10/06/2018 Referring Doctor: Enrique brand MD PT Orders: PT CONSULT: 73-year old female, wheelchair-bound, admitted for generalized weakness with UTI and A. fib. Assess for safety/mobility. Precautions: Fall. Standard. Patient Profile/Admitting Diagnosis: Patient is a 73-year-old female with past medical history significant for atrial fibrillation and diabetes mellitus who presented to the ED with nausea, vomiting, diarrhea, and generalized weakness which patient states she has had for the past 2 weeks. Patient was diagnosed with weakness, urinary tract infection, hyponatremia, hypomagnesemia, and atrial fibrillation with question of congestive heart failure. Referral for physical therapy was made today for functional mobility training, bilateral lower extremity strengthening, patient/caregiver/staff education training, and full reduction strategies. PMHX: Medical History Rheumatoid arteritis (Acute) Hx of hyperlipidemia (Acute) Atrial fibrillation (Chronic) Diabetes (Chronic) HTN (hypertension) (Chronic) Surgical History History of hysterectomy (Chronic) Hx of cholecystectomy (Chronic) Social History/Home Situation: Patient and are in the process of moving to a handicap accessible apartment here in [place] after being in a wait list for a long time. states that they were scheduled to move move in and 5 days. Patient has been using her motorized wheelchair inside the house for majority of her mobility but states that she has been able to independently stand up and perform short distance ambulation of 30 feet using her front wheeled. states that she still is able to work in the kitchen both sitting up as well as standing up for short duration of time. Current Functional Limitations: Need for assistance for all transfer and ambulation task performance using FWW Equipment Owned/DME: Motorized wheelchair, FWW Subjective: Patient and are both agreeable to a PT consult although during the first attempt was not able to stay awake and appeared to have significant twitching of bilateral lower extremities. states that he has not seen his like this in the past 40 years and is very much worried about her. Nurse was informed about said symptoms and 's anxiety. Objective: General Observation: Patient was seen resting in bed for the first attempt at evaluation. IV in left UE. Oxygen supplementation via NC. Obese. Cheeks are flushed. Bilateral lower extremities twitching. During the second attempt evaluation about an hour later, patient wanted to use the commode for bowel movement and was able to follow instructions albeit with impulsivity she states she really needed to go. Loose stools seen. Mental Status: Drowsy, oriented only as to person. Patient able to hold up conversation for 30 seconds and would close her eyes and sleep and would mumble words. Pain: Reported bilateral knee pain with range of motion test. ROM: Right Upper Extremity: Shoulder Flexion WFL. Shoulder abduction WFL. Elbow flexion WFL. Wrist flexion WFL. Functional opening and closing of hand WFL. Left Upper Extremity: Shoulder Flexion WFL. Shoulder abduction WFL. Elbow flexion WFL. Wrist flexion WFL. Functional opening and closing of hand WFL. Right Lower Extremity: Hip flexion 0-40. Hip abduction 0-10 with movement limited by pain and obesity. Knee flexion 0-40 with movement limited by pain and obesity. Ankle dorsiflexion WFL. Ankle plantarflexion WFL. Left Lower Extremity: Hip flexion 0-40. Hip abduction 0-10 with movement limited by pain and obesity. Knee flexion 0-40 with movement limited by pain and obesity. Ankle dorsiflexion WFL. Ankle plantarflexion WFL. Strength: Right Upper Extremity: Shoulder flexors 4-/5. Shoulder abductors 4-/5. Elbow flexors 4-/5. Elbow extensors 4-/5. Shipping Lead strong. Left Upper Extremity: Shoulder flexors 4-/5. Shoulder abductors 4-/5. Elbow flexors 4-/5. Elbow extensors 4-/5. Shipping Lead strong. Right Lower Extremity: Hip flexors 3-/5. Hip abductors 3-/5. Knee flexors 3-/5. Knee extensors 4-/5. Ankle dorsiflexors 5/5. Ankle plantarflexors 4-/5. Left Lower Extremity:Hip flexors 3-/5. Hip abductors 3-/5. Knee flexors 3-/5. Knee extensors 4-/5. Ankle dorsiflexors 5/5. Ankle plantarflexors 4-/5. Bed Mobility/Transfers: Rolling minimal assist Supine to sit minimal assist Sit to supine minimal assist Sit to stand CGA Stand to sit CGA Bed to chair CGA Chair to bed CGA Gait: Patient was only able to tolerate 2-3 steps from bedside to transfer onto bedside commode for toileting using bariatric FWW requiring CGA with this PT and standby assist for safety as patient has been reporting extreme fatigue. She reports pain and discomfort to bilateral knees with weight bearing. Balance: Static Sitting: Good Dynamic Sitting: Good Static Standing: Fair Dynamic Standing: Fair Special Tests: Mobility Limitations Standardized Measure [facility] AM-PAC 6 clicks Basic Mobility Inpatient Short Form: Raw Score: 14 CMS Score: 61% deficit Informed Consent/Education: Patient instructed in purpose of PT consult and plan of care. Patient has been agreeable to a PT working on strength, activity tolerance, and mobility progression. Assessment: Patient presents with clinical signs and symptoms consistent with current/admitting diagnoses that have resulted to mobility limitations, gait instability, generalized weakness, and impairment of motor control as demonstrated by the following impairment level findings: 1. Decreased strength to B LE major muscle groups 2. Impaired sitting/standing balance 3. Impaired activity tolerance 6 2 moderate Impairments are contributing to the following functional limitations: 1. Dependent bed mobility skills 2. Increased dependence with transfers 3. Inability to safely ambulate without assistive device and physical assistance 4. Increase completion time for mobility ADL performance 5. Increased fall risk 6. Inability to negotiate steps alone safely Patient is assessed as a 18400 moderate complexity based on the following: History: 73-year-old female with weakness, urinary tract infection, hyponatremia, hypomagnesemia, and atrial fibrillation with question of congestive heart failure Examination: Demonstrable impairment in strength, balance, and range of motion with underlying impairments and functional limitations as documented above Presentation:Evolving Decision Makin moderate complexity Goals: Goals X1 week 1. Supine-Sit independent 2. Sit-Supine independent 3. Sit-Stand independent 4. Stand-Sit independent 5. Bed-Chair independent 6. Chair-Bed independent 7. Independent gait on level surface with use of least restrictive device for at least 300 feet without report of pain nor dyspnea 8. Independent stair negotiation while holding onto bilateral rails for at least 10 steps without report of pain nor dyspnea 9. Independent with home exercise program 10. Good static and dynamic standing balance/tolerance Plan of Care/Treatment Plan: 1-2x/day, 7 days/week x 1 week. Plan of care has been reviewed with the WOOL MIXER providing the service under Physical Therapy direction. Initiate Physical Therapy intervention for strengthening, bed mobility, transfers, gait, stairs, balance training, use of assistive device. DISCHARGE RECOMMENDATIONS: Patient will benefit from shelter facility placement in order to progress mobility level, strength, and balance in preparation for a safe discharge to home. TREATMENT CODE/TIME: 9716 225 minutes, [id number] 15 minutes, beginning at 9:16 AM Thank you very much for this referral. Serenity Dumas PT, DPT, CLT [facility]
--- NOTE | 2018-10-06 12:00 | DI.US_ITS ---
SYMPTOMS/DIAGNOSIS: UTI, HX OF HYDRONEPHROSIS RENAL ULTRASOUND: Comparison is made with [id number]. The prevoid bladder volume measures 695 cc's. The postvoid residual is elevated at 125 cc's. The right jet was visualized. Visualization of the kidneys is somewhat limited by the patient's body habitus. The kidneys appear normal in size and show normal parenchymal thickness and echogenicity. No hydronephrosis is seen. There is a question of a small cyst on the left kidney. There are multiple echogenic foci in the left kidney, the largest measuring 7 mm seen in the mid portion. There is a 6 mm stone seen in the mid right kidney which is nonobstructing. IMPRESSION: Bilateral renal calculi. No evidence of hydronephrosis. Distended urinary bladder with elevated postvoid residual.
--- NOTE | 2018-10-06 12:45 | MERGE_ITS ---
*[facility]* *[facility]* [address] [place] [address] Date of study: 10/06/2018 Transthoracic Echocardiography M-mode, complete 2D, complete spectral Doppler, and color Doppler *STUDY CONCLUSIONS* Impressions: The patient was in atrial fibrillation throughout study. This rhythm can interfere with accurate global and segmental wall motion analysis. Summary: 1. Left ventricle: The cavity size was normal. Wall thickness was increased increased in a pattern of mild to moderate LVH. Systolic function was normal. The estimated ejection fraction was 55-60%. Wall motion was normal; there were no regional wall motion abnormalities. 2. Mitral valve: There was mild regurgitation. 3. Left atrium: The atrium was mildly dilated. 4. Right ventricle: The cavity size was normal. Wall thickness was normal. Systolic function was normal. 5. Right atrium: The atrium was mildly dilated. *PATIENT PRESENTATION* Height: 175.3cm ((69in) ) S/D Pressure: 122 / 65 Weight: 142kg ((312.3lb) ) BSA: 2.7m^2 Test start time: 12:50 PM. Test stop time: 01:50 PM. CONSULTING Marleen Warren PERFORMING Unknown PERFORMING [facility] SECOND OFFICER RT Iva (R)(CT), [facility] ORDERING Enrique Wood REFERRING Enrique Wood *PROCEDURE DATA* Procedure information: The patient was identified by two identifiers. This study was interpreted by [facility]. Pertinent images and digital data are archived for permanent storage and are available for subsequent review. Comparison was made to the study of 01/30/2016. Study status: Routine. Transthoracic echocardiography. M-mode, complete 2D, complete spectral Doppler, and color Doppler. A Transthoracic Echocardiogram was performed. Scanning was performed from the parasternal, apical, subcostal, and suprasternal notch acoustic windows. Images were obtained using an [id number] cardiac ultrasound machine. Image quality was adequate. Study completion: The patient tolerated the procedure well. History: PMH: Fatigue, SOB, cardiomegaly, elevated BNap. *CARDIAC ANATOMY* Left ventricle: The cavity size was normal. Wall thickness was increased increased in a pattern of mild to moderate LVH. Systolic function was normal. The estimated ejection fraction was 55-60%. Wall motion was normal; there were no regional wall motion abnormalities. The study was not technically sufficient to allow evaluation of LV diastolic dysfunction due to atrial fibrillation. Aortic valve: Trileaflet; normal thickness leaflets. Mobility was not restricted. Doppler: Transvalvular velocity was within the normal range. There was no stenosis. There was no significant regurgitation. VTI ratio of LVOT to aortic valve: 0.75. Valve area (VTI): 2.4cm^2. Indexed valve area (VTI): 0.9cm^2/m^2. Peak velocity ratio of LVOT to aortic valve: 0.66. Valve area (Vmax): 2.1cm^2. Indexed valve area (Vmax): 0.8cm^2/m^2. Mean velocity ratio of LVOT to aortic valve: 0.66. Valve area (Vmean): 2.1cm^2. Indexed valve area (Vmean): 0.8cm^2/m^2. Mean gradient (S): 4.4mm Hg. Peak gradient (S): 6.9mm Hg. Aorta: Aortic root: The aortic root was normal in size. Ascending aorta: The ascending aorta was normal in size. Mitral valve: Mildly thickened leaflets. Mobility was not restricted. Doppler: Transvalvular velocity was within the normal range. There was no evidence for stenosis. There was mild regurgitation. Peak gradient (D): 6.2mm Hg. Left atrium: The atrium was mildly dilated. Right ventricle: The cavity size was normal. Wall thickness was normal. Systolic function was normal. Pulmonic valve: Structurally normal valve. Doppler: Transvalvular velocity was within the normal range. There was no evidence for stenosis. There was trivial regurgitation. Peak gradient (S): 3.5mm Hg. Tricuspid valve: Structurally normal valve. Doppler: Transvalvular velocity was within the normal range. There was no evidence for stenosis. There was trivial regurgitation. Pulmonary artery: Pulmonary systolic pressure was within the normal range, in the range of 25mm Hg to 30mm Hg. Right atrium: The atrium was mildly dilated. Pericardium: There was no pericardial effusion. Systemic veins: Inferior vena cava: Well visualized. The vessel was patent and normal in size. The respirophasic diameter changes were in the normal range (greater than or equal to 50%). Baseline ECG: Atrial fibrillation. Measurements Left ventricle Value Reference LV ID, ED, PLAX 4.9 cm 3.5 - 6.0 LV ID, ES, PLAX 3.8 cm 2.1 - 4.0 LV PW thickness, ED, PLAX 1.4 cm LV end-diastolic volume, 1-p A2C 96 ml LV ejection fraction, 1-p A2C 63 % LV end-diastolic volume, 1-p A4C 82 ml LV ejection fraction, 1-p A4C 56 % LV e', lateral 0.101 m/sec LV E/e', lateral 12 LV e', medial 0.092 m/sec LV E/e', medial 14 LV e', average 0.096 m/sec LV E/e', average 13 Ventricular septum Value Reference IVS thickness, ED, PLAX 1.2 cm LVOT Value Reference LVOT ID, A-P 2.0 cm LVOT area 3.2 cm^2 LVOT peak velocity, S 0.87 m/sec LVOT mean velocity, S 0.66 m/sec LVOT VTI, S 15.7 cm LVOT peak gradient, S 3 mm Hg LVOT mean gradient, S 1.9 mm Hg Stroke volume (SV), LVOT DP 50 ml Stroke index (SV/bsa), LVOT DP 18 ml/m^2 Aortic valve Value Reference Aortic valve peak velocity, S 1.3 m/sec Aortic valve mean velocity, S 1 m/sec Aortic valve VTI, S 21.0 cm Aortic mean gradient, S 4.4 mm Hg Aortic peak gradient, S 6.9 mm Hg VTI ratio, LVOT/AV 0.75 Aortic valve area, VTI 2.4 cm^2 Velocity ratio, peak, LVOT/AV 0.66 Aortic valve area, peak velocity 2.1 cm^2 Velocity ratio, mean, LVOT/AV 0.66 Aortic valve area, mean velocity 2.1 cm^2 Aortic valve area/bsa, mean velocity 0.8 cm^2/m^2 Aorta Value Reference Aortic root ID, ED 3.4 cm RVOT Value Reference RVOT VTI, S 14.4 cm Left atrium Value Reference LA ID, A-P, ES 4.3 cm LA ID/bsa, A-P 1.6 cm/m^2 <=2.2 LA area, ES, A4C (H) 28.8 cm^2 8.8 - 23.4 LA area, ES, A2C 24 cm^2 LA volume/bsa, ES, 1-p A4C 44 ml/m^2 LA volume, ES, 2-p 95 ml LA volume/bsa, ES, 2-p 35 ml/m^2 LA/aortic root ratio 1.28 Mitral valve Value Reference Mitral E-wave peak velocity 1.24 m/sec Mitral peak gradient, D 6.2 mm Hg Pulmonary veins Value Reference Pulmonary vein peak velocity, S 0.19 m/sec Pulmonary vein peak velocity, D 0.7 m/sec Pulmonary vein velocity ratio, peak, 0.27 S/D Tricuspid valve Value Reference Tricuspid regurg peak velocity 2.4 m/sec Tricuspid peak RV-RA gradient 23.6 mm Hg Right atrium Value Reference RA area, ES, A4C (H) 24.3 cm^2 8.3 - 19.5 Pulmonic valve Value Reference Pulmonic peak gradient, S 3.5 mm Hg Legend: (L) and (H) farheen values outside specified reference range. I have personally reviewed the images and have reviewed and edited the reported findings. Electronically signed by Red Chavez 10/06/2018 15:35
[2018-10-06 13:45] LABS: Lactate-non-spesis 1.5 mmol/l (0.6-1.4)
--- NOTE | 2018-10-06 13:47 | PT.INNT ---
Date of service: 10/06/18 Time of Service: 13:47 PT Notes 10/06/18 Patient refused afternoon PT session, reporting that she is very tired this afternoon following her ultrasound. Will attempt to resume PT services tomorrow morning.
--- NOTE | 2018-10-06 15:40 | W.PM.PROGNOT ---
Documented by User: Jody Salas NP 10/06/18 16:41 Date of Service Date of service: 10/06/18 Time of Service: 15:40 Assessment and Plan (1) UTI (urinary tract infection): Current visit: Yes Status: Acute Urine culture growing gram negative rods. She is on IV ceftriaxone, day #2. Renal ultrasound Bilateral renal calculi. No evidence of hydronephrosis. Blood cultures with NGTD. Continue current treatment, continue to follow cultures. Continue PT. (2) Atrial fibrillation: Current visit: No Status: Acute Rates improving. She was started on PO cardizem 30mg Q8h, she remained tachycardic, Cardizem increased to 60 mg q8hrs. PRN IV Cardizem for For sustained HR >140. Continue to monitor on telemetry. (3) Hyponatremia: Current visit: No Status: Acute Chronic, with her sodium down to 130 from 134 on recent labs as an outpatient. Sodium 131 today. She received NS in the ED, she is taking PO fluids. Continue to follow. (4) Hypomagnesemia: Current visit: No Status: Acute Replete and monitor. (5) Diabetes: Current visit: No Status: Acute Her blood glucose has been elevated, 227 by labs this morning. Last A1c was 8.6 last month. Titrate basal insulin. Continue to follow blood glucose. Continue ADA diet. (6) Rheumatoid arthritis: Current visit: Yes Status: Chronic She is chronically on prednisone, her dose was increased on admission. Consider beginning taper tomorrow. (7) Adjustment disorder: Current visit: Yes Status: Acute Continue her outpatient bupropion. (8) DVT prophylaxis: Current visit: Yes Status: Acute On Pradaxa for atrial fibrillation. (9) Discharge planning issues: Current visit: Yes Status: Acute She is a FULL code. This case was discussed with Dr. Coreas who is in agreement. Subjective Interval history since last seen: Mrs. Chester reports feeling better today. She continues to feel generally weak. Nursing reports that she was disoriented for about an hour this morning, but seems to have cleared. She denies shortness of breath or coughing, she is occasionally wheezy, but that is her baseline. She denies chest pain, pressure or palpitations. She reports having a loose stool today, she denies abdominal pain, nausea or vomiting. She endorses lower extremity edema. Exam Narrative Exam Narrative: General: Alert and oriented x3, no acute distress sitting up and speaking comfortably while lying in bed. HEENT: Normocephalic, atraumatic. Face flushed. Pupils equal and round, EOMI, mucous membranes moist. Neck: supple, no JVD. Respiratory: respirations even and unlabored, lungs are clear bilaterally, no wheezing or rales. Cardiovascular: Irregularly irregular. No murmur appreciated. GI: normoactive bowel sounds, large, soft abdomen, nontender on palpation, no CVA tenderness. Extremities: trace to +1 nonpitting edema to BLEs. Objective Objective Clinical Data: Abnormal lab results 10/05/18 10/05/18 10/05/18 Range/Units 01:48 20:30 20:35 Absolute Neutrophils (1.2-6.7) k/cumm Absolute Lymphocytes (1.2-3.4) k/cumm Absolute Monocytes (0.11-0.7) k/cumm Sodium 130 L (136-145) mmol/L Chloride 94 L (98-107) mmol/L Glucose 213 H (70-100) mg/dL Lactate (0.6-1.4) mmol/l Magnesium 1.3 L (1.8-2.4) mg/dL Total Bilirubin 1.2 H (0.2-1.0) mg/dL NT-Pro-B Natriuret Pep 1068 H ( - 299) pg/mL Albumin 2.7 L (3.4-5.0) g/dL Urine Protein 30 H (Negative) mg/dL Urine Blood Moderate H (Negative) Urine Nitrite Positive H (Negative) Urine Urobilinogen 1.0 H (Up TO 0.2) EU/dL Ur Leukocyte Esterase Small H (Negative) 10/05/18 10/05/18 10/06/18 Range/Units 20:35 21:18 06:36 Absolute Neutrophils 8.53 H (1.2-6.7) k/cumm Absolute Lymphocytes 0.70 L (1.2-3.4) k/cumm Absolute Monocytes 0.71 H (0.11-0.7) k/cumm Sodium 131 L (136-145) mmol/L Chloride 96 L (98-107) mmol/L Glucose 227 H (70-100) mg/dL Lactate 2.3 H (0.6-1.4) mmol/l Magnesium 1.6 L (1.8-2.4) mg/dL Total Bilirubin (0.2-1.0) mg/dL NT-Pro-B Natriuret Pep ( - 299) pg/mL Albumin (3.4-5.0) g/dL Urine Protein (Negative) mg/dL Urine Blood (Negative) Urine Nitrite (Negative) Urine Urobilinogen (Up TO 0.2) EU/dL Ur Leukocyte Esterase (Negative) 10/06/18 Range/Units 13:38 Absolute Neutrophils (1.2-6.7) k/cumm Absolute Lymphocytes (1.2-3.4) k/cumm Absolute Monocytes (0.11-0.7) k/cumm Sodium (136-145) mmol/L Chloride (98-107) mmol/L Glucose (70-100) mg/dL Lactate 1.5 H (0.6-1.4) mmol/l Magnesium (1.8-2.4) mg/dL Total Bilirubin (0.2-1.0) mg/dL NT-Pro-B Natriuret Pep ( - 299) pg/mL Albumin (3.4-5.0) g/dL Urine Protein (Negative) mg/dL Urine Blood (Negative) Urine Nitrite (Negative) Urine Urobilinogen (Up TO 0.2) EU/dL Ur Leukocyte Esterase (Negative) Vital Signs Temperature 36.9 C 10/06/18 11:17 Temperature Source Tympanic 10/06/18 11:17 Pulse 114 H 10/06/18 15:00 Pulse Rhythm Irregular 10/06/18 07:40 Pulse 114 H 10/05/18 23:00 Respiratory Rate 20 10/06/18 11:17 Respiratory Effort Non-Labored 10/06/18 07:40 Respiratory Depth Normal 10/06/18 07:40 Respiratory Pattern Normal 10/06/18 07:40 Blood Pressure 130/76 10/06/18 11:17 Blood Pressure Mean 92 10/05/18 22:46 Blood Pressure Position Sitting 10/05/18 20:19 Pulse Oximetry 96 10/06/18 11:17 Oxygen Delivery Method Nasal Cannula 10/06/18 11:17 Oxygen Flow Rate 1 10/06/18 11:17 Pain Level 0 10/06/18 03:20 Comment 10/06/18 04:45 Intake & Output 10/05/18 10/06/18 10/06/18 23:59 11:59 23:59 Intake Total 2049.583 / 2289.583 240 / 2289.583 Output Total 900 / 1900 1000 / 1900 Balance 1149.583 / 389.583 -760 / 389.583 Weight 145.7 kg 142.3 kg Intake: IV 1719.583 / 1719.583 Oral 330 / 570 240 / 570 Output: Urine 900 / 1900 1000 / 1900 Other: Urine Color Light Anna Yellow Urine Appearance Clear Clear Urine Odor None Comment urine mixed with stool Stool Size Large Stool Characteristics Liquid Soft Formed Liquid Emesis Description None Voiding Methods Bedside Commode Bedside Commode Laboratory Results WBC 10.02 k/cumm (4.4-10.8) 10/05/18 20:35 RBC 4.31 m/cumm (4.00-5.20) 10/05/18 20:35 Hgb 13.6 g/dL (12.0-15.5) 10/05/18 20:35 Hct 40.2 % (36.0-46.0) 10/05/18 20:35 MCV 93.3 fL (80-95) 10/05/18 20:35 MCH 31.6 pg (27.0-33.0) 10/05/18 20:35 MCHC 33.8 g/dL (32.0-36.0) 10/05/18 20:35 RDW 14.3 % (11.7-14.6) 10/05/18 20:35 Plt Count 206 x1000/uL (130-400) 10/05/18 20:35 MPV 9.5 fL (8.0-11.0) 10/05/18 20:35 Immature Gran % 0.4 10/05/18 20:35 Neutrophils % 85.1 10/05/18 20:35 Lymphocytes % 7.0 10/05/18 20:35 Monocytes % 7.1 10/05/18 20:35 Eosinophils % 0.3 10/05/18 20:35 Basophils % 0.1 10/05/18 20:35 Absolute Neutrophils 8.53 k/cumm (1.2-6.7) H 10/05/18 20:35 Absolute Lymphocytes 0.70 k/cumm (1.2-3.4) L 10/05/18 20:35 Absolute Monocytes 0.71 k/cumm (0.11-0.7) H 10/05/18 20:35 Absolute Eosinophils 0.03 k/cumm (0.0-0.7) 10/05/18 20:35 Absolute Basophils 0.01 k/cumm (0.0-0.2) 10/05/18 20:35 Sodium 131 mmol/L (136-145) L 10/06/18 06:36 Potassium 4.2 mmol/L (3.5-5.1) 10/06/18 06:36 Chloride 96 mmol/L (98-107) L 10/06/18 06:36 Carbon Dioxide 24.1 mmol/L (21.0-32.0) 10/06/18 06:36 Anion Gap 10.9 mmol/L (3-11) 10/06/18 06:36 BUN 15 mg/dL (7-18) 10/06/18 06:36 Creatinine 0.91 mg/dL (0.55-1.02) 10/06/18 06:36 Estimated GFR/1.73 m2 >= 60.00 (mL/min/1.73m2) 10/06/18 06:36 Glucose 227 mg/dL (70-100) H 10/06/18 06:36 Lactate 1.5 mmol/l (0.6-1.4) H 10/06/18 13:38 Calcium 9.0 mg/dL (8.5-10.1) 10/06/18 06:36 Magnesium 1.6 mg/dL (1.8-2.4) L 10/06/18 06:36 Total Bilirubin 1.2 mg/dL (0.2-1.0) H 10/05/18 20:35 AST 21 U/L (15-37) 10/05/18 20:35 ALT 24 U/L (12-78) 10/05/18 20:35 Alkaline Phosphatase 96 U/L (46-116) 10/05/18 20:35 Troponin I < 0.05 ng/mL (0.00-0.06) 10/05/18 20:35 NT-Pro-B Natriuret Pep 1068 pg/mL (-299) H 10/05/18 01:48 Total Protein 7.1 g/dL (6.4-8.2) 10/05/18 20:35 Albumin 2.7 g/dL (3.4-5.0) L 10/05/18 20:35 TSH 1.08 uIU/mL (0.358-3.74) 10/06/18 06:36 Urine Color Yellow (Yellow) 10/05/18 20:30 Urine Clarity Sl cloudy (Clear) 10/05/18 20:30 Urine pH 5.5 (5-8) 10/05/18 20:30 Ur Specific [place] 1.020 (1.005-1.025) 10/05/18 20:30 Urine Protein 30 mg/dL (Negative) H 10/05/18 20:30 Urine Ketones Negative mg/dL (Negative) 10/05/18 20:30 Urine Blood Moderate (Negative) H 10/05/18 20:30 Urine Nitrite Positive (Negative) H 10/05/18 20:30 Urine Bilirubin Negative (Negative) 10/05/18 20:30 Urine Urobilinogen 1.0 EU/dL (Up TO 0.2) H 10/05/18 20:30 Ur Leukocyte Esterase Small (Negative) H 10/05/18 20:30 Urine RBC Not Applicable 10/05/18 20:30 Urine WBC >50 HPF (0-5) 10/05/18 20:30 Ur Epithelial Cells Not Applicable 10/05/18 20:30 Urine Crystals Not Applicable 10/05/18 20:30 Urine Bacteria Packed HPF (Negative) 10/05/18 20:30 Urine Mucus Not Applicable 10/05/18 20:30 Ur Culture Indicated? Yes 10/05/18 20:30 Urine Glucose Negative mg/dL (Negative) 10/05/18 20:30 Documented by User: Eugene Coreas MD 10/07/18 11:47
--- NOTE | 2018-10-06 16:00 | CHAPLAIN ---
Elizabeth was resting in bed when I visited. She said she is feeling better. He was visiting with her and a daughter had brought in a beautiful flower arrangement. Jesus seems to be comfortable here. I introduced myself and explained my role. I will visit again later.
[2018-10-06] MEDS: dilTIAZem 30 MG TAB 60 MG PO ×2 (16:36→23:08)
[2018-10-06] MEDS: Calcium Carbonate *TUMS* 500 MG CHEW PO (17:12)
[2018-10-06] MEDS: Insulin Glargine 300 UNITS/3 ML PEN 50 UNITS SC (20:28)
[2018-10-06] MEDS: Nystatin POWDER 60 GM JAR TP (20:30)
[2018-10-06] MEDS: cefTRIAXone 1 GM/50 ML BAG IVPB (22:01)
[2018-10-06] MEDS: Melatonin 3 MG TAB 9 MG PO (22:01)
[2018-10-07] VITALS (96 sets, daily range): BP systolic 96–164; BP diastolic 51–115; PULSE 80–148; RESP 4–29; TEMP 35.8–38.1; O2SAT 89–100
[2018-10-07] MEDS: Albuterol/Ipratropium 3 ML UPD VIAL UPD (02:32)
[2018-10-07 06:54] LABS: Abs Immature Grans 0.02 k/cumm (0.0-0.09); Absolute Basophil Count 0.01 k/cumm (0.0-0.2); Absolute Eosinophil Count 0.06 k/cumm (0.0-0.7); Absolute Lymphocyte Count 0.91 k/cumm (1.2-3.4); Absolute Neutrophil Count 3.94 k/cumm (1.2-6.7); Basophils % 0.2; Eosinophils % 1.1; HCT 38.2 % (36.0-46.0); HGB 12.6 g/dL (12.0-15.5); Immature Grans % 0.4; Lymphocytes % 16.1; Mean Corpuscular Hemoglobin 31.1 pg (27.0-33.0); Mean Corpuscular Volume 94.3 fL (80-95); Monocytes % 12.4; Neutrophils % 69.8; Platelet Count 198 x1000/uL (130-400); RBC 4.05 m/cumm (4.00-5.20); RBC Distribution Width 14.4 % (11.7-14.6); White Blood Cell Count 5.64 k/cumm (4.4-10.8)
--- NOTE | 2018-10-07 07:01 | IN_ITS ---
Date of service: 10/06/18 Time of Service: 09:16 PT Notes Inpatient Physical Therapy Evaluation Date: 10/06/2018 Referring Doctor: Enrique brand MD PT Orders: PT CONSULT: 73-year old female, wheelchair-bound, admitted for generalized weakness with UTI and A. fib. Assess for safety/mobility. Precautions: Fall. Standard. Patient Profile/Admitting Diagnosis: Patient is a 73-year-old female with past medical history significant for atrial fibrillation and diabetes mellitus who presented to the ED with nausea, vomiting, diarrhea, and generalized weakness which patient states she has had for the past 2 weeks. Patient was diagnosed with weakness, urinary tract infection, hyponatremia, hypomagnesemia, and atrial fibrillation with question of congestive heart failure. Referral for physical therapy was made today for functional mobility training, bilateral lower extremity strengthening, patient/caregiver/staff education training, and full reduction strategies. PMHX: Medical History Rheumatoid arteritis (Acute) Hx of hyperlipidemia (Acute) Atrial fibrillation (Chronic) Diabetes (Chronic) HTN (hypertension) (Chronic) Surgical History History of hysterectomy (Chronic) Hx of cholecystectomy (Chronic) Social History/Home Situation: Patient and are in the process of moving to a handicap accessible apartment here in [place] after being in a wait list for a long time. states that they were scheduled to move move in and 5 days. Patient has been using her motorized wheelchair inside the house for majority of her mobility but states that she has been able to independently stand up and perform short distance ambulation of 30 feet using her front wheeled. states that she still is able to work in the kitchen both sitting up as well as standing up for short duration of time. Current Functional Limitations: Need for assistance for all transfer and ambulation task performance using FWW Equipment Owned/DME: Motorized wheelchair, FWW Subjective: Patient and are both agreeable to a PT consult although during the first attempt was not able to stay awake and appeared to have signif icant twitching of bilateral lower extremities. states that he has not seen his like this in the past 40 years and is very much worried about her. Nurse was informed about said symptoms and 's anxiety. Objective: General Observation: Patient was seen resting in bed for the first attempt at evaluation. IV in left UE. Oxygen supplementation via NC. Obese. Cheeks are flushed. Bilateral lower extremities twitching. During the second attempt evaluation about an hour later, patient wanted to use the commode for bowel movement and was able to follow instructions albeit with impulsivity she states she really needed to go. Loose stools seen. Mental Status: Drowsy, oriented only as to person. Patient able to hold up conversation for 30 seconds and would close her eyes and sleep and would mumble words. Pain: Reported bilateral knee pain with range of motion test. ROM: Right Upper Extremity: Shoulder Flexion WFL. Shoulder abduction WFL. Elbow flexion WFL. Wrist flexion WFL. Functional opening and closing of hand WFL. Left Upper Extremity: Shoulder Flexion WFL. Shoulder abduction WFL. Elbow flexion WFL. Wrist flexion WFL. Functional opening and closing of hand WFL. Right Lower Extremity: Hip flexion 0-40. Hip abduction 0-10 with movement limited by pain and obesity. Knee flexion 0-40 with movement limited by pain and obesity. Ankle dorsiflexion WFL. Ankle plantarflexion WFL. Left Lower Extremity: Hip flexion 0-40. Hip abduction 0-10 with movement limited by pain and obesity. Knee flexion 0-40 with movement limited by pain and obesity. Ankle dorsiflexion WFL. Ankle plantarflexion WFL. Strength: Right Upper Extremity: Shoulder flexors 4-/5. Shoulder abductors 4-/5. Elbow flexors 4-/5. Elbow extensors 4-/5. Supply Chain Analyst strong. Left Upper Extremity: Shoulder flexors 4-/5. Shoulder abductors 4-/5. Elbow flexors 4-/5. Elbow extensors 4-/5. Supply Chain Analyst strong. Right Lower Extremity: Hip flexors 3-/5. Hip abductors 3-/5. Knee flexors 3-/5. Knee extensors 4-/5. Ankle dorsiflexors 5/5. Ankle plantarflexors 4-/5. Left Lower Extremity:Hip flexors 3-/5. Hip abductors 3-/5. Knee flexors 3-/5. Knee extensors 4-/5. Ankle dorsiflexors 5/5. Ankle plantarflexors 4-/5. Bed Mobility/Transfers: Rolling minimal assist Supine to sit minimal assist Sit to supine minimal assist Sit to stand CGA Stand to sit CGA Bed to chair CGA Chair to bed CGA Gait: Patient was only able to tolerate 2-3 steps from bedside to transfer onto bedside commode for toileting using bariatric FWW requiring CGA with this PT and standby assist for safety as patient has been reporting extreme fatigue. She reports pain and discomfort to bilateral knees with weight bearing. Balance: Static Sitting: Good Dynamic Sitting: Good Static Standing: Fair Dynamic Standing: Fair Special Tests: Mobility Limitations Standardized Measure [facility] AM-PAC 6 clicks Basic Mobility Inpatient Short Form: Raw Score: 14 CMS Score: 61% deficit Informed Consent/Education: Patient instructed in purpose of PT consult and plan of care. Patient has been agreeable to a PT working on strength, activity tolerance, and mobility progression. Assessment: Patient presents with clinical signs and symptoms consistent with current/admitting diagnoses that have resulted to mobility limitations, gait instability, generalized weakness, and impairment of motor control as dem onstrated by the following impairment level findings: 1. Decreased strength to B LE major muscle groups 2. Impaired sitting/standing balance 3. Impaired activity tolerance 6 2 moderate Impairments are contributing to the following functional limitations: 1. Dependent bed mobility skills 2. Increased dependence with transfers 3. Inability to safely ambulate without assistive device and physical assistance 4. Increase completion time for mobility ADL performance 5. Increased fall risk 6. Inability to negotiate steps alone safely Patient is assessed as a 21805 moderate complexity based on the following: History: 73-year-old female with weakness, urinary tract infection, hyponatremia, hypomagnesemia, and atrial fibrillation with question of congestive heart failure Examination: Demonstrable impairment in strength, balance, and range of motion with underlying impairments and functional limitations as documented above Presentation:Evolving Decision Makin moderate complexity Goals: Goals X1 week 1. Supine-Sit independent 2. Sit-Supine independent 3. Sit-Stand independent 4. Stand-Sit independent 5. Bed-Chair independent 6. Chair-Bed independent 7. Independent gait on level surface with use of least restrictive device for at least 300 feet without report of pain nor dyspnea 8. Independent stair negotiation while holding onto bilateral rails for at least 10 steps without report of pain nor dyspnea 9. Independent with home exercise program 10. Good static and dynamic standing balance/tolerance Plan of Care/Treatment Plan: 1-2x/day, 7 days/week x 1 week. Plan of care has been reviewed with the PBX MECHANIC providing the service under Physical Therapy direction. Initiate Physical Therapy intervention for strengthening, bed mobility, transfers, gait, stairs, balance training, use of assistive device. DISCHARGE RECOMMENDATIONS: Patient will benefit from assisted facility placement in order to progress mobility level, strength, and balance in preparation for a safe discharge to home. TREATMENT CODE/TIME: 9716 225 minutes, 86406 15 minutes, beginning at 9:16 AM Thank you very much for this referral. Serenity Dumas PT, DPT, CLT [facility]
[2018-10-07 07:17] LABS: Anion Gap 5.6 mmol/L (3-11); BUN 19 mg/dL (7-18); CO2 26.4 mmol/L (21.0-32.0); CREATININE 0.89 mg/dL (0.55-1.02); Calcium 8.4 mg/dL (8.5-10.1); Chloride 95 mmol/L (98-107); Glucose 174 mg/dL (70-100); Magnesium 1.4 mg/dL (1.8-2.4); Potassium 3.7 mmol/L (3.5-5.1); Sodium 127 mmol/L (136-145)
[2018-10-07] MEDS: Cyanocobalamin 500 MCG TAB 1000 MCG PO (08:03)
[2018-10-07] MEDS: Cholecalciferol (Vitamin D3) 1,000 UNIT TAB 1000 UNITS PO (08:04)
[2018-10-07] MEDS: Metoprolol 50 MG TAB 100 MG PO ×3 (08:04→23:52)
[2018-10-07] MEDS: dilTIAZem 30 MG TAB 60 MG PO (08:04)
[2018-10-07] MEDS: Losartan 50 MG TAB PO (08:04)
[2018-10-07] MEDS: buPROPion-CR 100 MG TABCR PO ×2 (08:04→20:01)
[2018-10-07] MEDS: Omega-3 Fatty Acids 1000 MG CAP PO (08:04)
[2018-10-07] MEDS: predniSONE 5 MG TAB 15 MG PO (08:04)
[2018-10-07] MEDS: Multivitamin TAB 1 TAB PO (08:04)
[2018-10-07] MEDS: DULoxetine 30 MG CAP 60 MG PO (08:04)
[2018-10-07] MEDS: Insulin Glargine 300 UNITS/3 ML PEN 50 UNITS SC ×2 (08:15→20:02)
[2018-10-07] MEDS: Insulin Aspart 300 UNITS/3 ML PEN 30 UNITS SC ×3 (08:18→17:10)
--- NOTE | 2018-10-07 09:48 | PDOC.CMPRO ---
- If Service Date Differs Date of service: 10/07/18 Time of Service: 09:48 Care Management Progress Note S/O:Ruba was lying in bed when CM came to visit. She was very sleepy and kept dozing during conversation. Ruba was transferred to the ICU this morning because of increasing shortness of breath and persistent tachycardia secondary to atrial fibrillation. She is currently on a Diltiazem drip and continues on IV antibiotics for her UTI. A: Ruba is a 73 year old woman admitted to [facility] on 10/05/18 with weakness and a UTI P: Ruba was transferred to the ICU this morning because of increasing SOB and afib with RVR. The ultimate discharge plan will be determined by hospital course. Currently has CFC in home. CM to continue to provide support to patient and family and discharge planning process.
[2018-10-07] MEDS: Nystatin POWDER 60 GM JAR TP ×3 (09:56→20:03)
[2018-10-07] MEDS: POTASSIUM CHLORIDE 20 MEQ, POTASSIUM CHLORIDE 10 MEQ 30 MEQ PO (09:56)
[2018-10-07] MEDS: Normal Saline Flush 10 ML SYR (09:57)
--- NOTE | 2018-10-07 10:07 | DI.RAD_ITS ---
SYMPTOM/DIAGNOSIS: DYSPNEA PORTABLE AP CHEST AT 1012 HOURS: The heart appears mildly enlarged. The lungs are grossly clear and well expanded. CONCLUSION: No evidence of acute change.
[2018-10-07] MEDS: MAGNESIUM SULFATE 2 GM/50 ML BAG IVPB (11:34)
[2018-10-07] MEDS: dilTIAZem 125 MG in Normal Saline 100 ML IV (11:40)
--- NOTE | 2018-10-07 11:47 | W.PM.PROGNOT ---
Date of Service Date of service: 10/07/18 Time of Service: 11:52 Assessment and Plan (1) UTI (urinary tract infection): Current visit: Yes Status: Acute Urine Cultures with E. Coli, Sensitivities not yet available. Currently on day #3 of Ceftriaxone, and still febrile. Prior cultures reviewed and with pansensitive E.Coli. However, given continued fever this morning will broaden coverage to Meropenem while awaiting final sensitivities, and continue to monitor blood cultures. Renal ultrasound with bilateral renal calculi, with no evidence of hydronephrosis. (2) Weakness: Current visit: Yes Status: Acute Likely in setting of illness. Ensure Physical Therapy consult when able. (3) Atrial fibrillation: Current visit: No Status: Chronic Afib with RVR, rate uncontrolled despite initiation and titration of oral cardizem. Patient also with subjective dyspnea in setting of rapid rates. Discontinue oral Diltiazem, and move patient to the ICU for administration of Dilt gtt.Will change oral BB to Q8 dosing with hold parameters. Given concurrent dyspnea also checked CXR to ensure lack of volume overload - interpreted as without acute abnormality. Continue AC with Dabigatran. (4) Hyponatremia: Current visit: No Status: Chronic Chronic, mildly lower value today. Patient also with hypochloremia and fever, may be dehydrated in setting of acute illness. Gentle IVFs and monitor sodium levels. (5) Diabetes: Current visit: No Status: Chronic Continue basal Lantus, short-acting mealtime insulin, and Victoza. Metformin on hold. Also on ADA diet. (6) DVT prophylaxis: Current visit: Yes Status: Acute On chronic anticoagulation. (7) Advance directive on file: Current visit: Yes Status: Acute Full Code. Subjective Interval history since last seen: 73-year-old woman with a history of Afib on chronic AC, as well as prior E. Coli Sepsis, admitted from [facility] Emergency Department on 10/05 with a diagnosis of UTI and Afib with RVR. 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 She is noted to be chronically wheelchair bound. The patient presented to the ED with a reported 3 week history of feeling unwell, a few days of progressive weakness and fatigue, culminating in a fall to the floor while attempting to get out of her chair. Her fall was slow, and assisted by her , and with a lack of focal neurologic symptoms. Work-up in the ED was significant for evidence of a UTI, along with Afib with RVR. Her initial CXR was negative. She was referred for further evaluation and treatment. Following admission Mrs. Chester underwent a renal ultrasound that showed b/l calculi without evidence of hydronephrosis, and an ECHO that was essentially unremarkable. Her heart rate has been uncontrolled despite initiation and titration of oral cardizem, along with IV pushes of this medicine on a prn basis. She continues to be febrile despite day 3 of antibiotic therapy with Ceftriaxone. She also continues to feel unwell, and reports feeling worse since yesterday. No other overnight events were reported. Exam Narrative Exam Narrative: General: Patient appears ill but not toxic, AAOX3 Neck: Supple CV: Irregularly Irregular, tachycardic, S1S2, No rubs, murmurs, or gallops. Pulmonary: Clear to auscultation bilaterally, mild bibasilar crackles, nowheezing or rhonchi Abdomen: + Bowel Sounds, soft, nontender, nondistended Vascular: b/l non-pitting lower extremity edema Psych: Normal mood and affect. Objective Objective Clinical Data: Abnormal lab results 10/06/18 10/07/18 10/07/18 Range/Units 13:38 06:20 06:20 Absolute Lymphocytes 0.91 L (1.2-3.4) k/cumm Sodium 127 L (136-145) mmol/L Chloride 95 L (98-107) mmol/L BUN 19 H (7-18) mg/dL Glucose 174 H (70-100) mg/dL Lactate 1.5 H (0.6-1.4) mmol/l Calcium 8.4 L (8.5-10.1) mg/dL Magnesium 1.4 L (1.8-2.4) mg/dL Vital Signs Temperature 38.1 C H 10/07/18 07:20 Temperature Source Tympanic 10/07/18 07:20 Pulse 120 H 10/07/18 07:20 Pulse Rhythm Irregular 10/06/18 19:30 Pulse 114 H 10/05/18 23:00 Respiratory Rate 20 10/07/18 07:20 Respiratory Effort Non-Labored 10/06/18 19:30 Respiratory Depth Normal 10/06/18 19:30 Respiratory Pattern Normal 10/06/18 19:30 Blood Pressure 129/78 10/07/18 07:20 Blood Pressure Mean 92 10/05/18 22:46 Blood Pressure Position Sitting 10/05/18 20:19 Pulse Oximetry 98 10/07/18 07:20 Oxygen Delivery Method Nasal Cannula 10/07/18 07:20 Oxygen Flow Rate 2 10/07/18 07:20 Pain Level 0 10/07/18 07:20 Comment 10/07/18 04:24 Intake & Output 10/06/18 10/06/18 10/07/18 11:59 23:59 11:59 Intake Total 2049.583 / 2579.583 530 / 2579.583 640 / 640 Output Total 900 / 2400 1500 / 2400 650 / 650 Balance 1149.583 / 179.583 -970 / 179.583 -10 / -10 Weight 142.3 kg 142.5 kg Intake: IV 1719.583 / 1769.583 50 / 1769.583 Oral 330 / 810 480 / 810 640 / 640 Output: Urine 900 / 2400 1500 / 2400 650 / 650 Other: Urine Color Light Anna Yellow Light Anna Urine Appearance Clear Clear Clear Urine Odor None None Comment urine mixed with stool pt stated that she asked for the alfred to be removed this morning beacuse it was very uncomfortable, and has been voiding well in the toilet or bed commode Stool Size Large Stool Characteristics Soft Formed Liquid Voiding Methods Bedside Commode Bedside Commode Bedside Commode Laboratory Results WBC 5.64 k/cumm (4.4-10.8) 10/07/18 06:20 RBC 4.05 m/cumm (4.00-5.20) 10/07/18 06:20 Hgb 12.6 g/dL (12.0-15.5) 10/07/18 06:20 Hct 38.2 % (36.0-46.0) 10/07/18 06:20 MCV 94.3 fL (80-95) 10/07/18 06:20 MCH 31.1 pg (27.0-33.0) 10/07/18 06:20 MCHC 33.0 g/dL (32.0-36.0) 10/07/18 06:20 RDW 14.4 % (11.7-14.6) 10/07/18 06:20 Plt Count 198 x1000/uL (130-400) 10/07/18 06:20 MPV 10.0 fL (8.0-11.0) 10/07/18 06:20 Immature Gran % 0.4 10/07/18 06:20 Neutrophils % 69.8 10/07/18 06:20 Lymphocytes % 16.1 10/07/18 06:20 Monocytes % 12.4 10/07/18 06:20 Eosinophils % 1.1 10/07/18 06:20 Basophils % 0.2 10/07/18 06:20 Absolute Neutrophils 3.94 k/cumm (1.2-6.7) 10/07/18 06:20 Absolute Lymphocytes 0.91 k/cumm (1.2-3.4) L 10/07/18 06:20 Absolute Monocytes 0.70 k/cumm (0.11-0.7) 10/07/18 06:20 Absolute Eosinophils 0.06 k/cumm (0.0-0.7) 10/07/18 06:20 Absolute Basophils 0.01 k/cumm (0.0-0.2) 10/07/18 06:20 Sodium 127 mmol/L (136-145) L 10/07/18 06:20 Potassium 3.7 mmol/L (3.5-5.1) 10/07/18 06:20 Chloride 95 mmol/L (98-107) L 10/07/18 06:20 Carbon Dioxide 26.4 mmol/L (21.0-32.0) 10/07/18 06:20 Anion Gap 5.6 mmol/L (3-11) 10/07/18 06:20 BUN 19 mg/dL (7-18) H 10/07/18 06:20 Creatinine 0.89 mg/dL (0.55-1.02) 10/07/18 06:20 Estimated GFR/1.73 m2 >= 60.00 (mL/min/1.73m2) 10/07/18 06:20 Glucose 174 mg/dL (70-100) H 10/07/18 06:20 Lactate 1.5 mmol/l (0.6-1.4) H 10/06/18 13:38 Calcium 8.4 mg/dL (8.5-10.1) L 10/07/18 06:20 Magnesium 1.4 mg/dL (1.8-2.4) L 10/07/18 06:20 Total Bilirubin 1.2 mg/dL (0.2-1.0) H 10/05/18 20:35 AST 21 U/L (15-37) 10/05/18 20:35 ALT 24 U/L (12-78) 10/05/18 20:35 Alkaline Phosphatase 96 U/L (46-116) 10/05/18 20:35 Troponin I < 0.05 ng/mL (0.00-0.06) 10/05/18 20:35 NT-Pro-B Natriuret Pep 1068 pg/mL (-299) H 10/05/18 01:48 Total Protein 7.1 g/dL (6.4-8.2) 10/05/18 20:35 Albumin 2.7 g/dL (3.4-5.0) L 10/05/18 20:35 TSH 1.08 uIU/mL (0.358-3.74) 10/06/18 06:36 Urine Color Yellow (Yellow) 10/05/18 20:30 Urine Clarity Sl cloudy (Clear) 10/05/18 20:30 Urine pH 5.5 (5-8) 10/05/18 20:30 Ur Specific [place] 1.020 (1.005-1.025) 10/05/18 20:30 Urine Protein 30 mg/dL (Negative) H 10/05/18 20:30 Urine Ketones Negative mg/dL (Negative) 10/05/18 20:30 Urine Blood Moderate (Negative) H 10/05/18 20:30 Urine Nitrite Positive (Negative) H 10/05/18 20:30 Urine Bilirubin Negative (Negative) 10/05/18 20:30 Urine Urobilinogen 1.0 EU/dL (Up TO 0.2) H 10/05/18 20:30 Ur Leukocyte Esterase Small (Negative) H 10/05/18 20:30 Urine RBC Not Applicable 10/05/18 20:30 Urine WBC >50 HPF (0-5) 10/05/18 20:30 Ur Epithelial Cells Not Applicable 10/05/18 20:30 Urine Crystals Not Applicable 10/05/18 20:30 Urine Bacteria Packed HPF (Negative) 10/05/18 20:30 Urine Mucus Not Applicable 10/05/18 20:30 Ur Culture Indicated? Yes 10/05/18 20:30 Urine Glucose Negative mg/dL (Negative) 10/05/18 20:30 Objective Narrative Objective Narrative: Urine Culture Preliminary 10/07/18-1051 Day 1 Result ISOLATES BELOW ISOLATE 1 COLONY COUNT >100,000 COLONIES/ML ISOLATE 1 APPEARANCE Gram Negative Dudley Day 2 Result ISOLATES BELOW ISOLATE 1 COLONY COUNT >100,000 COLONIES/ML ISOLATE 1 APPEARANCE Gram Negative [place] ISOLATE 1 ACTION SUSCEPTIBILITY TO FOLLOW ISOLATE 2 COLONY COUNT 10,000 - 50,000 COLONIES/ML ISOLATE 2 APPEARANCE Gram Negative [place]ley ISOLATE 2 ACTION ID AND SUSCEPTIBILITY TO FOLLOW Organism 1 Escherichia coli COLONY COUNT >100,000 COLONIES/ML Organism 2 GRAM NEGATIVE DUDLEY COLONY COUNT 10,000 - 50,000 COLONIES/ML Exam(s) a RAD:XR portable chest AP SYMPTOM/DIAGNOSIS: DYSPNEA PORTABLE AP CHEST AT 1012 HOURS: The heart appears mildly enlarged. The lungs are grossly clear and well expanded. CONCLUSION: No evidence of acute change.
--- NOTE | 2018-10-07 12:55 | NUR.NOTE ---
Nursing Note: 1056: pt transferred to ICU room 219 via bed. report given to SHAILA Worthy. all questions answered at this time.
--- NOTE | 2018-10-07 13:53 | PT.INTREAT ---
Date of service: 10/07/18 Time of Service: 08:40 PT Notes Inpatient Physical Therapy Treatment Note [facility] Date: 10/07/18 PRECAUTIONS: Fall SUBJECTIVE: Elizabeth states that she is not going to participate in PT, as she is wheelchair bound at home and suffers from pain from arthritis. She is however, agreeable to minimal participation this morning, following some encouragement. OBJECTIVE: PAIN: Patient complained of pain everywhere, specifically in her hands, knees, and legs BED MOBILITY/TRANSFERS Sit-supine: SBA with HOB flat Sit-stand: CGA Stand-sit: CGA Chair-bed: CGA GAIT Assistive Device: FWW Weight bearing: Full Assist: CGA Distance: 5' Deviation: Cueing for FWW management THEREX: Patient completed ankle pumps and bridging exercises, in a supine position, as per flow sheet. ASSESSMENT: Patient tolerated session with complaints of pain, reportedly due to arthritis. Patient was able to tolerate gait training with FWW support requiring cueing for FWW management for safety. Patient would benefit from continued gait and transfer training as well as strengthening for improved mobility and improved activity tolerance. PLAN: Continue with PTs POC TREATMENT CODE/TIME: 10 minutes; 30993
[2018-10-07] MEDS: Normal Saline 1,000 ML 100 ML IV (14:30)
[2018-10-07 16:01] LABS: Bilirubin Negative (Negative); Blood Trace-lysed (Negative); Clarity Clear (Clear); Glucose 250 mg/dL (Negative); Ketones Negative (Negative); Leukocyte Esterase Negative (Negative); Nitrite Negative (Negative); Specific Gravity <= 1.005 (1.005-1.025); Urobilinogen 0.2 EU/dL (Up TO 0.2); pH 5.5 (5-8)
[2018-10-07 16:36] LABS: Bacteria Rare HPF (Negative); C & S Indicated? No/Sq. Contamination; Crystals Negative HPF (Negative); Epithelial Cells Moderate HPF (Negative); Mucus Negative (Negative); Other Cells Few Yeast (Negative); RBC Negative (0-2)
--- NOTE | 2018-10-07 17:01 | PHARADMIT ---
Addendum entered by Clemencia Kay 10/08/18 12:42: Pharmacy Note Subjective Pt feels better per MD Objective HR>100's, weight is up 6.4kg, Na++ up 133, Mag up 1.6, BG 188, temp 37.8 this morning Micro blood: no growth Micro urine: >100K E.Coli Assessment Diltiazem IV Infusion continues for now and also starting oral Diltiazem receiving another MagIV bolus today No insulin adjustments at this time, Nurse did have in possession patient's own Toujeo and Humalog 200u/ml insulin pens...asked her to send home with . We are using our Novolog/Lantus Meropenam dc'd and changed to oral Cipro Plan Will transition Diltiazem infusion off Original Note: Admission Pharmacy Clinical Review UTI, WEAKNESS Code Status Full Code Current Weight 142.5 kg Renally Cleared and Narrow Therapeutic Index Meds CrCl~58.8ml/min QTc Value / Action Taken BP Control, Fever BP 111/55 Afebrile now (Temp 38.1 @ 0720 today) Electrolytes reviewed Na++ low 127 Mag 1.4 (Mag 2gram IV x1) DVT Prophylaxis Pradaxa Opiate Usage / Scheduled Bowel Regimen Ordered Plt/SCr for Heparin / Enoxaparin Plt 198 SCr 0.89 INR for Warfarin H/H stable, WBC/Bands H/H 12.6/38.2 WBC 5.64 Antibiotic appropriateness Rocephin changed to Meropenam 2gram Q8h due to fevers for broader coverage awaiting sensitivities Cultures and Sensitivities Urine: E.Coli >100K Surgical ABX d/c within 24 hr DM control / Insulin Dosing BG 174 (Lantus/Novolog) Heart Failure (Check EF%) (AASHISH's, B-Block, Diuretics) Moved to ICU for Diltiazem infusion (HR 130-150's) Losartan, Metoprolol, IV to PO Switch Home Meds Reviewed Some pt's own meds-not brought in Home Meds Not Ordered Ascorbic acid, Celebrex, Metformin Comments Procalcitonin not drawn
--- NOTE | 2018-10-07 20:00 | PT.INDS ---
Date of service: 10/07/18 PT Notes Inpatient Physical Therapy Discharge Summary Dates: 10/07/2018 Dates of Service: 10/06/2018 through 10/07/2018 This is a clinical summary of care provided on the duration of dates listed above. No charge was made in the completion of this documentation. Referring Doctor: Enrique brand MD PT Orders: PT CONSULT: 73-year old female, wheelchair-bound, admitted for generalized weakness with UTI and A. fib. Assess for safety/mobility. Precautions: Fall. Standard. Patient Profile/Admitting Diagnosis: Patient is discharged to ICU level as of today 10/07/2018. Patient is a 73-year-old female with past medical history significant for atrial fibrillation and diabetes mellitus who presented to the ED with nausea, vomiting, diarrhea, and generalized weakness which patient states she has had for the past 2 weeks. Patient was diagnosed with weakness, urinary tract infection, hyponatremia, hypomagnesemia, and atrial fibrillation with question of congestive heart failure. Referral for physical therapy was made today for functional mobility training, bilateral lower extremity strengthening, patient/caregiver/staff education training, and full reduction strategies. Subjective: NT Objective: General Observation: NT Mental Status: NT Pain: NT ROM: Right Upper Extremity: Shoulder Flexion WFL. Shoulder abduction WFL. Elbow flexion WFL. Wrist flexion WFL. Functional opening and closing of hand WFL. Left Upper Extremity: Shoulder Flexion WFL. Shoulder abduction WFL. Elbow flexion WFL. Wrist flexion WFL. Functional opening and closing of hand WFL. Right Lower Extremity: Hip flexion 0-40. Hip abduction 0-10 with movement limited by pain and obesity. Knee flexion 0-40 with movement limited by pain and obesity. Ankle dorsiflexion WFL. Ankle plantarflexion WFL. Left Lower Extremity: Hip flexion 0-40. Hip abduction 0-10 with movement limited by pain and obesity. Knee flexion 0-40 with movement limited by pain and obesity. Ankle dorsiflexion WFL. Ankle plantarflexion WFL. Strength: Right Upper Extremity: Shoulder flexors 4-/5. Shoulder abductors 4-/5. Elbow flexors 4-/5. Elbow extensors 4-/5. Construction Executive strong. Left Upper Extremity: Shoulder flexors 4-/5. Shoulder abductors 4-/5. Elbow flexors 4-/5. Elbow extensors 4-/5. Construction Executive strong. Right Lower Extremity: Hip flexors 3-/5. Hip abductors 3-/5. Knee flexors 3-/5. Knee extensors 4-/5. Ankle dorsiflexors 5/5. Ankle plantarflexors 4-/5. Left Lower Extremity:Hip flexors 3-/5. Hip abductors 3-/5. Knee flexors 3-/5. Knee extensors 4-/5. Ankle dorsiflexors 5/5. Ankle plantarflexors 4-/5. Bed Mobility/Transfers: Rolling minimal assist Supine to sit minimal assist Sit to supine minimal assist Sit to stand CGA Stand to sit CGA Bed to chair CGA Chair to bed CGA Gait: Please refer to [facility]ER[facility] HAND notes for the morning of 10/07/2018 Balance: Static Sitting: Good Dynamic Sitting: Good Static Standing: Fair Dynamic Standing: Fair Assessment: Patient continues to present with clinical signs and symptoms consistent with current/admitting diagnoses that have resulted to mobility limitations, gait instability, generalized weakness, and impairment of motor control as demonstrated by the following impairment level findings: 1. Decreased strength to B LE major muscle groups 2. Impaired sitting/standing balance 3. Impaired activity tolerance 6 2 moderate Impairments are contributing to the following functional limitations: 1. Dependent bed mobility skills 2. Increased dependence with transfers 3. Inability to safely ambulate without assistive device and physical assistance 4. Increase completion time for mobility ADL performance 5. Increased fall risk 6. Inability to negotiate steps alone safely Goals: Goals X1 week 1. Supine-Sit independent NOT MET 2. Sit-Supine independent NOT MET 3. Sit-Stand independent NOT MET 4. Stand-Sit independent NOT MET 5. Bed-Chair independent NOT MET 6. Chair-Bed independent NOT MET 7. Independent gait on level surface with use of least restrictive device for at least 300 feet without report of pain nor dyspnea NOT MET 8. Independent stair negotiation while holding onto bilateral rails for at least 10 steps without report of pain nor dyspnea NOT MET 9. Independent with home exercise program NOT MET 10. Good static and dynamic standing balance/tolerance NOT MET DISCHARGE RECOMMENDATIONS: Patient will benefit from halfway facility placement in order to progress mobility level, strength, and balance in preparation for a safe discharge to home. TREATMENT CODE/TIME: NC. Thank you very much for this referral. Serenity Dumas PT, DPT, CLT [facility]
[2018-10-07] MEDS: Pravastatin 40 MG TAB PO (20:01)
[2018-10-07] MEDS: Calcium Carbonate *TUMS* 500 MG CHEW PO (21:22)
[2018-10-07] MEDS: Melatonin 3 MG TAB 9 MG PO (21:22)
[2018-10-08] VITALS (48 sets, daily range): BP systolic 94–159; BP diastolic 53–89; PULSE 75–159; RESP 11–30; TEMP 35.6–37.8; O2SAT 91–95
[2018-10-08] MEDS: dilTIAZem 125 MG in Normal Saline 100 ML 7.5 MG IV (00:03)
[2018-10-08] MEDS: Normal Saline 1,000 ML 100 ML IV ×2 (00:18→12:50)
[2018-10-08 07:32] LABS: Abs Immature Grans 0.03 k/cumm (0.0-0.09); Absolute Basophil Count 0.01 k/cumm (0.0-0.2); Absolute Eosinophil Count 0.05 k/cumm (0.0-0.7); Absolute Monocyte Count 1.09 k/cumm (0.11-0.7); Absolute Neutrophil Count 7.01 k/cumm (1.2-6.7); Basophils % 0.1; Eosinophils % 0.6; HCT 38.9 % (36.0-46.0); HGB 12.7 g/dL (12.0-15.5); Immature Grans % 0.3; Lymphocytes % 8.9; Mean Corp. HGB Concentration 32.6 g/dL (32.0-36.0); Mean Corpuscular Hemoglobin 31.2 pg (27.0-33.0); Mean Corpuscular Volume 95.6 fL (80-95); Mean Platelet Volume 10.2 fL (8.0-11.0); Monocytes % 12.1; Platelet Count 239 x1000/uL (130-400); RBC 4.07 m/cumm (4.00-5.20); RBC Distribution Width 14.6 % (11.7-14.6); White Blood Cell Count 8.99 k/cumm (4.4-10.8)
[2018-10-08 07:43] LABS: Anion Gap 10.4 mmol/L (3-11); BUN 18 mg/dL (7-18); CO2 26.6 mmol/L (21.0-32.0); CREATININE 0.86 mg/dL (0.55-1.02); Calcium 8.3 mg/dL (8.5-10.1); Chloride 96 mmol/L (98-107); Glucose 188 mg/dL (70-100); Magnesium 1.6 mg/dL (1.8-2.4); Potassium 4.4 mmol/L (3.5-5.1); Sodium 133 mmol/L (136-145)
[2018-10-08] MEDS: Metoprolol 50 MG TAB 100 MG PO ×3 (07:44→23:49)
[2018-10-08] MEDS: buPROPion-CR 100 MG TABCR PO ×2 (08:41→20:10)
[2018-10-08] MEDS: Cyanocobalamin 500 MCG TAB 1000 MCG PO (08:41)
[2018-10-08] MEDS: Cholecalciferol (Vitamin D3) 1,000 UNIT TAB 1000 UNITS PO (08:41)
[2018-10-08] MEDS: Omega-3 Fatty Acids 1000 MG CAP PO (08:41)
[2018-10-08] MEDS: Docusate Sodium 100 MG CAP PO ×4 (08:41→20:11)
[2018-10-08] MEDS: predniSONE 5 MG TAB 15 MG PO (08:41)
[2018-10-08] MEDS: Losartan 50 MG TAB PO (08:42)
[2018-10-08] MEDS: Multivitamin TAB 1 TAB PO (08:42)
[2018-10-08] MEDS: DULoxetine 30 MG CAP 60 MG PO (08:42)
[2018-10-08] MEDS: Insulin Aspart 300 UNITS/3 ML PEN 30 UNITS SC ×3 (08:43→17:02)
[2018-10-08] MEDS: Insulin Glargine 300 UNITS/3 ML PEN 50 UNITS SC ×2 (08:57→20:12)
[2018-10-08] MEDS: Nystatin POWDER 60 GM JAR TP ×3 (08:58→21:54)
[2018-10-08] MEDS: Acetaminophen 325 MG TAB PO (09:56)
[2018-10-08] MEDS: dilTIAZem 60 MG TAB PO ×2 (10:41→18:19)
[2018-10-08] MEDS: MAGNESIUM SULFATE 2 GM/50 ML BAG IVPB (10:41)
--- NOTE | 2018-10-08 10:51 | CMPROGNOTE_ITS ---
- If Service Date Differs Date of service: 10/08/18 Time of Service: 10:50 Care Management Progress Note S/O:Ruba was sitting up in bed talking with her and a friend during CM visit. She was smiling and talkative and noted that she had a large bowel movement this morning after not going for 4 days and it has made her feel a lot better. Ruba stated her breathing is better and she has less aches and pains. She states she is not sure what her discharge plan will look like yet. Cm will continue to follow. A: Ruba is a 73 year old woman admitted to [facility] on 10/05/18 with weakness and a UTI P: Ruba remains ICU level of care. PT worked with Ruba yesterday and has recommended SNF for rehab post discharge. Ruba currently has CFC in home and initially was resistant to working with PT. The ultimate discharge plan will be determined by hospital course. CM to continue to provide support to patient and family and discharge planning process.
[2018-10-08] MEDS: dilTIAZem 125 MG in Normal Saline 100 ML 15 MG IV (11:05)
--- NOTE | 2018-10-08 12:57 | W.INDIABCONS ---
Date of service: 10/08/18 Time of Service: 12:57 Diabetes Inpatient Consult DESCRIPTION/ASSESSMENT: Appreciate diabetes consult for Elizabeth Chester who is hospitalized with UTI. BMI 48 No current A1c Elizabeth is managed for type 2 diabetes with 50u Lantus twice daily and 30u Novolog at each meal as well as Victoza daily. At home she is on Metformin as well. Blood sugars here fasting 173-240; pre-lunch 217-263; pre-supper 173-263. Carbohydrate is not consistently recorded. 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 She feels she is doing well at home since starting on Victoza. INTERVENTION: Despite irregular carbohydrate intake, blood sugars remain higher than desired most meals. She may benefit from a resistant insulin correction to attempt to correct hyperglycemia. PLAN: Suggest resistant insulin correction scale Will follow blood sugars Time Spent in Nutritional Counseling and Treatment: 5 minutes
--- NOTE | 2018-10-08 12:59 | PGE_ITS ---
Date of Service Date of service: 10/08/18 Time of Service: 12:55 Assessment and Plan (1) UTI (urinary tract infection): Current visit: Yes Status: Acute Urine Cultures with E. Coli, pansensitive. Had received 2 days of Ceftriaxone, changed to Meropenem for broader coverage. Will continue but change to Cipro today given culture results, and continue treatment given continued fevers previously. Blood cultures with No Growth X48 hours. Renal ultrasound with bilateral renal calculi, with no evidence of hydronephrosis. (2) Weakness: Current visit: Yes Status: Acute Likely in setting of illness. Ensure Physical Therapy consult when able. (3) Atrial fibrillation: Current visit: No Status: Chronic Afib with RVR, rate uncontrolled despite initiation and titration of cardizem gtt. Patient also with subjective dyspnea in setting of rapid rates. Coninue Dilt gtt, reinitiate oral Cardizem, and continue BB previously increased to Q8 dosing. CXR without pathology, but with crackles on exam - may benefit from administration of diuretic therapy. ECHO normal, but patient with significantly elevated and uncontrolled HR, with crackles on exam. Continue AC with Dabigatran. (4) Hyponatremia: Current visit: No Status: Chronic Likely related to dehydration, hypovolemia in setting of fevers and acute illness. Improved. Will monitor closely given plans for gentle diuresis today. (5) Diabetes: Current visit: No Status: Chronic Continue basal Lantus, short-acting mealtime insulin, and Victoza. Metformin on hold. Also on ADA diet. (6) DVT prophylaxis: Current visit: Yes Status: Acute On chronic anticoagulation. Initiate PPI for GI prophylaxis as well. (7) Advance directive on file: Current visit: Yes Status: Acute Full Code. Subjective Interval history since last seen: 73-year-old woman with a history of Afib on chronic AC, as well as prior E. Coli Sepsis, admitted from [facility] Emergency Department on 10/05 with a diagnosis of UTI and Afib with RVR. 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 She is noted to be chronically wheelchair bound. The patient presented to the ED with a reported 3 week history of feeling unwell, a few days of progressive weakness and fatigue, culminating in a fall to the floor while attempting to get out of her chair. Her fall was slow, and assisted by her , and with a lack of focal neurologic symptoms. Work-up in the ED was significant for evidence of a UTI, along with Afib with RVR. Her initial CXR was negative. She was referred for further evaluation and treatment. Following admission Mrs. Chester underwent a renal ultrasound that showed b/l calculi without evidence of hydronephrosis, and an ECHO that was essentially unremarkable. Her heart rate had been uncontrolled despite initiation and titration of oral cardizem, along with IV pushes of this medicine on a prn basis. She was transferred to the ICU and initiated on a cardizem drip, without appropriate control this morning despite titration. She had also continues to be febrile despite day 3 of antibiotic therapy with Ceftriaxone, and was changed to Meropenem. She feels improved this morning overall, but not yet at baseline. No other overnight events were reported. Exam Narrative Exam Narrative: General: Patient appears ill but not toxic, AAOX3 Neck: Supple CV: Irregularly Irregular, tachycardic, S1S2, No rubs, murmurs, or gallops. Pulmonary: Clear to auscultation bilaterally, continued mild bibasilar crackles, no wheezing or rhonchi Abdomen: + Bowel Sounds, soft, nontender, nondistended Vascular: b/l non-pitting lower extremity edema Psych: Normal mood and affect. Objective Objective Clinical Data: Abnormal lab results 10/07/18 10/08/18 10/08/18 Range/Units 15:41 06:25 06:25 MCV 95.6 H (80-95) fL Absolute Neutrophils 7.01 H (1.2-6.7) k/cumm Absolute Lymphocytes 0.80 L (1.2-3.4) k/cumm Absolute Monocytes 1.09 H (0.11-0.7) k/cumm Sodium 133 L (136-145) mmol/L Chloride 96 L (98-107) mmol/L Glucose 188 H (70-100) mg/dL Calcium 8.3 L (8.5-10.1) mg/dL Magnesium 1.6 L (1.8-2.4) mg/dL Urine Blood Trace-lysed H (Negative) Urine Glucose 250 H (Negative) mg/dL Vital Signs Temperature 36.8 C 10/08/18 10:53 Temperature Source Temporal Artery Scan 10/08/18 10:53 Pulse 101 H 10/08/18 12:10 Pulse Rhythm Irregular 10/07/18 08:30 Pulse 100 H 10/08/18 12:10 Respiratory Rate 22 10/08/18 12:10 Respiratory Effort 10/08/18 08:00 Respiratory Depth Normal 10/08/18 08:00 Respiratory Pattern Normal 10/08/18 08:00 Blood Pressure 116/82 10/08/18 12:10 Blood Pressure Mean 89 10/08/18 12:10 Blood Pressure Position Supine 10/08/18 08:00 Pulse Oximetry 94 L 10/08/18 12:10 Oxygen Delivery Method Nasal Cannula 10/08/18 12:10 Oxygen Flow Rate 0.5 10/08/18 12:10 Pain Level 0 10/08/18 12:10 Comment 10/07/18 04:24 Intake & Output 10/07/18 10/08/18 10/08/18 23:59 11:59 23:59 Intake Total 690.917 / 0958.518 8981.958 / 3562.208 26.25 / 3562.208 Output Total 2450 / 3100 950 / 950 Balance -1759.083 / -5074.446 1429.958 / 2612.208 26.25 / 2612.208 Weight 148.9 kg Intake: IV 290.917 / 047.825 1274.958 / 2276.208 26.25 / 2276.208 Oral 400 / 1040 1286 / 1286 Output: Urine 2450 / 3100 950 / 950 Other: Urine Color Yellow Yellow Urine Appearance Clear Clear Urine Odor None None Comment uses commode. U/A sent earlier did not need a culture uses commode. done Stool Occult Blood Negative Stool Size Moderate Stool Characteristics Soft Formed Voiding Methods Bedside Commode Bedside Commode Laboratory Results WBC 8.99 k/cumm (4.4-10.8) D 10/08/18 06:25 RBC 4.07 m/cumm (4.00-5.20) 10/08/18 06:25 Hgb 12.7 g/dL (12.0-15.5) 10/08/18 06:25 Hct 38.9 % (36.0-46.0) 10/08/18 06:25 MCV 95.6 fL (80-95) H 10/08/18 06:25 MCH 31.2 pg (27.0-33.0) 10/08/18 06:25 MCHC 32.6 g/dL (32.0-36.0) 10/08/18 06:25 RDW 14.6 % (11.7-14.6) 10/08/18 06:25 Plt Count 239 x1000/uL (130-400) 10/08/18 06:25 MPV 10.2 fL (8.0-11.0) 10/08/18 06:25 Immature Gran % 0.3 10/08/18 06:25 Neutrophils % 78.0 10/08/18 06:25 Lymphocytes % 8.9 10/08/18 06:25 Monocytes % 12.1 10/08/18 06:25 Eosinophils % 0.6 10/08/18 06:25 Basophils % 0.1 10/08/18 06:25 Absolute Neutrophils 7.01 k/cumm (1.2-6.7) H 10/08/18 06:25 Absolute Lymphocytes 0.80 k/cumm (1.2-3.4) L 10/08/18 06:25 Absolute Monocytes 1.09 k/cumm (0.11-0.7) H 10/08/18 06:25 Absolute Eosinophils 0.05 k/cumm (0.0-0.7) 10/08/18 06:25 Absolute Basophils 0.01 k/cumm (0.0-0.2) 10/08/18 06:25 Sodium 133 mmol/L (136-145) L 10/08/18 06:25 Potassium 4.4 mmol/L (3.5-5.1) 10/08/18 06:25 Chloride 96 mmol/L (98-107) L 10/08/18 06:25 Carbon Dioxide 26.6 mmol/L (21.0-32.0) 10/08/18 06:25 Anion Gap 10.4 mmol/L (3-11) 10/08/18 06:25 BUN 18 mg/dL (7-18) 10/08/18 06:25 Creatinine 0.86 mg/dL (0.55-1.02) 10/08/18 06:25 Estimated GFR/1.73 m2 >= 60.00 (mL/min/1.73m2) 10/08/18 06:25 Glucose 188 mg/dL (70-100) H 10/08/18 06:25 Lactate 1.5 mmol/l (0.6-1.4) H 10/06/18 13:38 Calcium 8.3 mg/dL (8.5-10.1) L 10/08/18 06:25 Magnesium 1.6 mg/dL (1.8-2.4) L 10/08/18 06:25 Total Bilirubin 1.2 mg/dL (0.2-1.0) H 10/05/18 20:35 AST 21 U/L (15-37) 10/05/18 20:35 ALT 24 U/L (12-78) 10/05/18 20:35 Alkaline Phosphatase 96 U/L (46-116) 10/05/18 20:35 Troponin I < 0.05 ng/mL (0.00-0.06) 10/05/18 20:35 NT-Pro-B Natriuret Pep 1068 pg/mL (-299) H 10/05/18 01:48 Total Protein 7.1 g/dL (6.4-8.2) 10/05/18 20:35 Albumin 2.7 g/dL (3.4-5.0) L 10/05/18 20:35 TSH 1.08 uIU/mL (0.358-3.74) 10/06/18 06:36 Urine Color Yellow (Yellow) 10/07/18 15:41 Urine Clarity Clear (Clear) 10/07/18 15:41 Urine pH 5.5 (5-8) 10/07/18 15:41 Ur Specific [place] <= 1.005 (1.005-1.025) 10/07/18 15:41 Urine Protein Negative mg/dL (Negative) 10/07/18 15:41 Urine Ketones Negative mg/dL (Negative) 10/07/18 15:41 Urine Blood Trace-lysed (Negative) H 10/07/18 15:41 Urine Nitrite Negative (Negative) 10/07/18 15:41 Urine Bilirubin Negative (Negative) 10/07/18 15:41 Urine Urobilinogen 0.2 EU/dL (Up TO 0.2) 10/07/18 15:41 Ur Leukocyte Esterase Negative (Negative) 10/07/18 15:41 Urine RBC Negative (0-2) 10/07/18 15:41 Urine WBC 3-5 HPF (0-5) 10/07/18 15:41 Ur Epithelial Cells Moderate HPF (Negative) 10/07/18 15:41 Urine Crystals Negative HPF (Negative) 10/07/18 15:41 Urine Bacteria Rare HPF (Negative) 10/07/18 15:41 Urine Mucus Negative (Negative) 10/07/18 15:41 Urine Other Few yeast (Negative) 10/07/18 15:41 Ur Culture Indicated? No/sq. contamination 10/07/18 15:41 Urine Glucose 250 mg/dL (Negative) H 10/07/18 15:41
--- NOTE | 2018-10-08 14:22 | DM INPTCON_ITS ---
Date of service: 10/08/18 Time of Service: 12:57 Diabetes Inpatient Consult DESCRIPTION/ASSESSMENT: Appreciate diabetes consult for Elizabeth Chester who is hospitalized with UTI. BMI 48 No current A1c Elizabeth is managed for type 2 diabetes with 50u Lantus twice daily and 30u Novolog at each meal as well as Victoza daily. At home she is on Metformin as well. Blood sugars here fasting 173-240; pre-lunch 217-263; pre-supper 173- 263. Carbohydrate is not consistently recorded. 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 She feels she is doing well at home since starting on Victoza. INTERVENTION: Despite irregular carbohydrate intake, blood sugars remain higher than desired most meals. She may benefit from a resistant insulin correction to attempt to correct hyperglycemia. PLAN: Suggest resistant insulin correction scale Will follow blood sugars Time Spent in Nutritional Counseling and Treatment: 5 minutes
[2018-10-08] MEDS: Furosemide 20 MG/2 ML VIAL IVP (14:25)
[2018-10-08] MEDS: Normal Saline Flush 10 ML SYR (14:26)
[2018-10-08] MEDS: Ciprofloxacin 500 MG TAB PO (20:11)
[2018-10-08] MEDS: Pravastatin 40 MG TAB PO (20:11)
[2018-10-08] MEDS: Senna TAB 2 TAB PO (21:57)
[2018-10-08] MEDS: Melatonin 3 MG TAB 9 MG PO (21:58)
[2018-10-08] MEDS: diazePAM 2 MG TAB PO (21:58)
[2018-10-09] VITALS (23 sets, daily range): BP systolic 104–159; BP diastolic 53–74; PULSE 89–117; RESP 16–31; TEMP 36–36.8; O2SAT 92–95
[2018-10-09] MEDS: dilTIAZem 60 MG TAB PO (02:34)
[2018-10-09 05:57] LABS: Anion Gap 11.2 mmol/L (3-11); BUN 16 mg/dL (7-18); CO2 26.8 mmol/L (21.0-32.0); Calcium 8.5 mg/dL (8.5-10.1); Chloride 100 mmol/L (98-107); Glucose 127 mg/dL (70-100); Magnesium 1.9 mg/dL (1.8-2.4); Potassium 3.7 mmol/L (3.5-5.1); Sodium 138 mmol/L (136-145)
[2018-10-09 05:58] LABS: Abs Immature Grans 0.06 k/cumm (0.0-0.09); Absolute Basophil Count 0.01 k/cumm (0.0-0.2); Absolute Lymphocyte Count 1.81 k/cumm (1.2-3.4); Absolute Neutrophil Count 8.81 k/cumm (1.2-6.7); Basophils % 0.1; Eosinophils % 1.2; HCT 38.5 % (36.0-46.0); HGB 12.7 g/dL (12.0-15.5); Immature Grans % 0.5; Lymphocytes % 14.9; Mean Corpuscular Hemoglobin 31.5 pg (27.0-33.0); Mean Corpuscular Volume 95.5 fL (80-95); Mean Platelet Volume 9.9 fL (8.0-11.0); Monocytes % 10.7; Neutrophils % 72.6; Platelet Count 308 x1000/uL (130-400); RBC 4.03 m/cumm (4.00-5.20); RBC Distribution Width 14.6 % (11.7-14.6); White Blood Cell Count 12.13 k/cumm (4.4-10.8)
[2018-10-09 06:02] LABS: Absolute Eosinophil Count 0.15 k/cumm (0.0-0.7)
[2018-10-09] MEDS: Omega-3 Fatty Acids 1000 MG CAP PO (07:53)
[2018-10-09] MEDS: Ciprofloxacin 500 MG TAB PO ×2 (07:54→19:44)
[2018-10-09] MEDS: buPROPion-CR 100 MG TABCR PO ×2 (07:54→19:44)
[2018-10-09] MEDS: Docusate Sodium 100 MG CAP PO (07:54)
[2018-10-09] MEDS: Esomeprazole 40 MG CAPCR PO (07:54)
[2018-10-09] MEDS: DULoxetine 30 MG CAP 60 MG PO (07:54)
[2018-10-09] MEDS: Multivitamin TAB 1 TAB PO (07:54)
[2018-10-09] MEDS: Cyanocobalamin 500 MCG TAB 1000 MCG PO (07:54)
[2018-10-09] MEDS: Cholecalciferol (Vitamin D3) 1,000 UNIT TAB 1000 UNITS PO (07:54)
[2018-10-09] MEDS: predniSONE 10 MG TAB PO (07:54)
--- NOTE | 2018-10-09 07:54 | CMPROGNOTE_ITS ---
- If Service Date Differs Date of service: 10/09/18 Time of Service: 07:52 Care Management Progress Note S/O:Ruba was sitting up in the chair talking with her when CM came to visit. She was smiling and stated that she would likely get to go home tomorrow as long as her heart rate remained controlled. She is very concerned because she is scheduled to move to a new handicapped accessible apartment on Friday and has not packed yet. Ruba is requesting new HH nursing at discharge to monitor heart rate and breathing. A: Ruba is a 73 year old woman admitted to [facility] on 10/05/18 with weakness and a UTI P: Ruba remains in the ICU. Ruba currently has CFC in home and would like new HH nursing as well. CM to continue to provide support to patient and family and discharge planning process.
[2018-10-09] MEDS: Metoprolol 50 MG TAB 100 MG PO ×2 (07:55→15:56)
[2018-10-09] MEDS: Losartan 50 MG TAB PO (07:55)
[2018-10-09] MEDS: Insulin Glargine 300 UNITS/3 ML PEN 50 UNITS SC ×2 (08:17→22:05)
[2018-10-09] MEDS: Insulin Aspart 300 UNITS/3 ML PEN 30 UNITS SC ×3 (08:18→17:11)
[2018-10-09] MEDS: dilTIAZem 30 MG TAB 90 MG PO ×2 (09:07→18:28)
[2018-10-09] MEDS: POTASSIUM CHLORIDE 20 MEQ, POTASSIUM CHLORIDE 10 MEQ 30 MEQ PO (09:08)
[2018-10-09] MEDS: Nystatin POWDER 60 GM JAR TP ×3 (09:09→19:52)
[2018-10-09] MEDS: Magnesium Oxide 400 MG TAB PO (11:37)
[2018-10-09] MEDS: Loperamide 2 MG CAP PO (14:48)
[2018-10-09] MEDS: Furosemide 20 MG TAB 40 MG PO (15:56)
[2018-10-09] MEDS: Celecoxib 200 MG CAP PO (15:57)
--- NOTE | 2018-10-09 17:03 | PGE_ITS ---
Date of Service Date of service: 10/09/18 Time of Service: 17:02 Assessment and Plan (1) UTI (urinary tract infection): Current visit: Yes Status: Acute Urine Cultures with E. Coli, pansensitive. Had received 2 days of Ceftriaxone, changed to Meropenem for broader coverage. Will continue but change to Cipro today given culture results, and continue treatment given continued fevers previously. Blood cultures with No Growth X72 hours. Renal ultrasound with bilateral renal calculi, with no evidence of hydronephrosis. Current mild elevation in WBC may be in setting of diuresis and hemoconcentration, but needs to be monitored. (2) Weakness: Current visit: Yes Status: Acute Likely in setting of illness. Ensure Physical Therapy consult when able. (3) Atrial fibrillation: Current visit: No Status: Chronic Afib with RVR, rate uncontrolled but improved. Patient also with subjective dyspnea in setting of rapid rates, and evidence of volume overload despite a normal ECHO. Currently with Dilt gtt off and with improved HR. Continue and uptitrate oral Cardizem, and continue BB previously increased to Q8 dosing. CXR without pa thology, but with crackles on exam previously - benefitted from administration of diuretic therapy X1, which will be repeated today. ECHO normal. Continue AC with Dabigatran. (4) Hyponatremia: Current visit: No Status: Chronic Likely related to dehydration, hypovolemia in setting of fevers and acute illness. Improved, now normalized. (5) Diabetes: Current visit: No Status: Chronic Continue basal Lantus, short-acting mealtime insulin, and Victoza. Metformin on hold. Also on ADA diet. (6) DVT prophylaxis: Current visit: Yes Status: Acute On chronic anticoagulation. Initiated PPI for GI prophylaxis as well. (7) Advance directive on file: Current visit: Yes Status: Acute Full Code. Subjective Interval history since last seen: 73-year-old woman with a history of Afib on chronic AC, as well as prior E. Coli Sepsis, admitted from [facility] Emergency Department on 10/05 with a diagnosis of UTI and Afib with RVR. 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 She is noted to be chronically wheelchair bound. The patient presented to the ED with a reported 3 week history of feeling unwell, a few days of progressive weakness and fatigue, culminating in a fall to the floor while attempting to get out of her chair. Her fall was slow, and assisted by her , and with a lack of focal neurologic symptoms. Work-up in the ED was significant for evidence of a UTI, along with Afib with RVR. Her initial CXR was negative. She was referred for further evaluation and treatment. Following admission Mrs. Chester underwent a renal ultrasound that showed b/l calculi without evidence of hydronephrosis, and an ECHO that was essentially unremarkable. Her heart rate had been uncontrolled despite initiation and titration of oral cardizem, along with IV pushes of this medicine on a prn basis. She was transferred to the ICU and initiated on a cardizem drip, with the addition of oral cardizem, and this morning has improved control and remains off the drip. She had also continues to be febrile despite day 2 of antibiotic therapy with Ceftriaxone, and was changed to Meropenem. However, her Culture shows an essentially pansensitive E.Coli. She feels improved this morning overall, but not yet at baseline. Her breathing is vastly improved and she is off supplemental oxygen following a dose of diuretic therapy. No other overnight events were reported. Exam Narrative Exam Narrative: General: Patient appears ill but not toxic, AAOX3 Neck: Supple CV: Irregularly Irregular, tachycardic, S1S2, No rubs, murmurs, or gallops. Pulmonary: Improved bibasilar crackles, no wheezing or rhonchi Abdomen: + Bowel Sounds, soft, nontender, nondistended Vascular: b/l non-pitting lower extremity edema Psych: Normal mood and affect. Objective Objective Clinical Data: Abnormal lab results 10/09/18 10/09/18 Range/Units 05:30 05:30 WBC 12.13 H D (4.4-10.8) k/cumm MCV 95.5 H (80-95) fL Absolute Neutrophils 8.81 H (1.2-6.7) k/cumm Absolute Monocytes 1.30 H (0.11-0.7) k/cumm Anion Gap 11.2 H (3-11) mmol/L Glucose 127 H (70-100) mg/dL Vital Signs Temperature 36.3 C L 10/09/18 16:06 Temperature Source Temporal Artery Scan 10/09/18 16:06 Pulse 100 H 10/09/18 16:06 Pulse Rhythm Irregular 10/07/18 08:30 Pulse 98 H 10/09/18 11:14 Respiratory Rate 16 10/09/18 16:06 Respiratory Effort Non-Labored 10/09/18 16:06 Respiratory Depth Normal 10/09/18 16:06 Respiratory Pattern Normal 10/09/18 16:06 Blood Pressure 128/70 10/09/18 16:06 Blood Pressure Mean 89 10/09/18 16:06 Blood Pressure Position Supine 10/09/18 04:11 Pulse Oximetry 95 10/09/18 16:06 Oxygen Delivery Method Room Air 10/09/18 16:06 Oxygen Flow Rate 0 10/09/18 16:06 Pain Level 0 10/09/18 16:06 Comment 10/07/18 04:24 Intake & Output 10/08/18 10/09/18 10/09/18 23:59 11:59 23:59 Intake Total 1573.416 / 5109.374 283.334 / 523.334 240 / 523.334 Output Total 2475 / 3425 1699 / 1999 300 / 2000 Balance -901.584 / 1684.374 -1416.666 / -1476.666 -60 / -1476.666 Weight 147 kg Intake: IV 1093.416 / 3343.374 43.334 / 43.334 Oral 480 / 1766 240 / 480 240 / 480 Output: Urine 2475 / 3425 1700 / 1999 300 / 2000 Other: Urine Color Pale Yellow Light Anna Yellow Urine Appearance Clear Clear Clear Urine Odor None None None Comment pt states its from lasix Mixed w/ loose stool Stool Size Smear Stool Characteristics Soft Voiding Methods Bedside Commode Bedside Commode Bedside Commode Laboratory Results WBC 12.13 k/cumm (4.4-10.8) H D 10/09/18 05:30 RBC 4.03 m/cumm (4.00-5.20) 10/09/18 05:30 Hgb 12.7 g/dL (12.0-15.5) 10/09/18 05:30 Hct 38.5 % (36.0-46.0) 10/09/18 05:30 MCV 95.5 fL (80-95) H 10/09/18 05:30 MCH 31.5 pg (27.0-33.0) 10/09/18 05:30 MCHC 33.0 g/dL (32.0-36.0) 10/09/18 05:30 RDW 14.6 % (11.7-14.6) 10/09/18 05:30 Plt Count 308 x1000/uL (130-400) 10/09/18 05:30 MPV 9.9 fL (8.0-11.0) 10/09/18 05:30 Immature Gran % 0.5 10/09/18 05:30 Neutrophils % 72.6 10/09/18 05:30 Lymphocytes % 14.9 10/09/18 05:30 Monocytes % 10.7 10/09/18 05:30 Eosinophils % 1.2 10/09/18 05:30 Basophils % 0.1 10/09/18 05:30 Absolute Neutrophils 8.81 k/cumm (1.2-6.7) H 10/09/18 05:30 Absolute Lymphocytes 1.81 k/cumm (1.2-3.4) 10/09/18 05:30 Absolute Monocytes 1.30 k/cumm (0.11-0.7) H 10/09/18 05:30 Absolute Eosinophils 0.15 k/cumm (0.0-0.7) 10/09/18 05:30 Absolute Basophils 0.01 k/cumm (0.0-0.2) 10/09/18 05:30 Sodium 138 mmol/L (136-145) 10/09/18 05:30 Potassium 3.7 mmol/L (3.5-5.1) 10/09/18 05:30 Chloride 100 mmol/L (98-107) 10/09/18 05:30 Carbon Dioxide 26.8 mmol/L (21.0-32.0) 10/09/18 05:30 Anion Gap 11.2 mmol/L (3-11) H 10/09/18 05:30 BUN 16 mg/dL (7-18) 10/09/18 05:30 Creatinine 0.80 mg/dL (0.55-1.02) 10/09/18 05:30 Estimated GFR/1.73 m2 >= 60.00 (mL/min/1.73m2) 10/09/18 05:30 Glucose 127 mg/dL (70-100) H 10/09/18 05:30 Lactate 1.5 mmol/l (0.6-1.4) H 10/06/18 13:38 Calcium 8.5 mg/dL (8.5-10.1) 10/09/18 05:30 Magnesium 1.9 mg/dL (1.8-2.4) 10/09/18 05:30 Total Bilirubin 1.2 mg/dL (0.2-1.0) H 10/05/18 20:35 AST 21 U/L (15-37) 10/05/18 20:35 ALT 24 U/L (12-78) 10/05/18 20:35 Alkaline Phosphatase 96 U/L (46-116) 10/05/18 20:35 Troponin I < 0.05 ng/mL (0.00-0.06) 10/05/18 20:35 NT-Pro-B Natriuret Pep 1068 pg/mL (-299) H 10/05/18 01:48 Total Protein 7.1 g/dL (6.4-8.2) 10/05/18 20:35 Albumin 2.7 g/dL (3.4-5.0) L 10/05/18 20:35 TSH 1.08 uIU/mL (0.358-3.74) 10/06/18 06:36 Urine Color Yellow (Yellow) 10/07/18 15:41 Urine Clarity Clear (Clear) 10/07/18 15:41 Urine pH 5.5 (5-8) 10/07/18 15:41 Ur Specific [place] <= 1.005 (1.005-1.025) 10/07/18 15:41 Urine Protein Negative mg/dL (Negative) 10/07/18 15:41 Urine Ketones Negative mg/dL (Negative) 10/07/18 15:41 Urine Blood Trace-lysed (Negative) H 10/07/18 15:41 Urine Nitrite Negative (Negative) 10/07/18 15:41 Urine Bilirubin Negative (Negative) 10/07/18 15:41 Urine Urobilinogen 0.2 EU/dL (Up TO 0.2) 10/07/18 15:41 Ur Leukocyte Esterase Negative (Negative) 10/07/18 15:41 Urine RBC Negative (0-2) 10/07/18 15:41 Urine WBC 3-5 HPF (0-5) 10/07/18 15:41 Ur Epithelial Cells Moderate HPF (Negative) 10/07/18 15:41 Urine Crystals Negative HPF (Negative) 10/07/18 15:41 Urine Bacteria Rare HPF (Negative) 10/07/18 15:41 Urine Mucus Negative (Negative) 10/07/18 15:41 Urine Other Few yeast (Negative) 10/07/18 15:41 Ur Culture Indicated? No/sq. contamination 10/07/18 15:41 Urine Glucose 250 mg/dL (Negative) H 10/07/18 15:41
[2018-10-09] MEDS: Pravastatin 40 MG TAB PO (19:44)
[2018-10-09] MEDS: Calcium Carbonate *TUMS* 500 MG CHEW PO (21:46)
[2018-10-09] MEDS: Melatonin 3 MG TAB 9 MG PO (21:46)
[2018-10-10] VITALS (17 sets, daily range): BP systolic 107–150; BP diastolic 55–131; PULSE 82–108; RESP 14–34; TEMP 36–36.4; O2SAT 93–97
[2018-10-10] MEDS: Metoprolol 50 MG TAB 100 MG PO ×2 (00:22→09:08)
[2018-10-10] MEDS: dilTIAZem 30 MG TAB 90 MG PO ×2 (02:03→10:27)
[2018-10-10 06:51] LABS: Abs Immature Grans 0.13 k/cumm (0.0-0.09); Absolute Basophil Count 0.02 k/cumm (0.0-0.2); Absolute Eosinophil Count 0.27 k/cumm (0.0-0.7); Absolute Lymphocyte Count 2.31 k/cumm (1.2-3.4); Absolute Monocyte Count 1.04 k/cumm (0.11-0.7); Absolute Neutrophil Count 5.86 k/cumm (1.2-6.7); Basophils % 0.2; Eosinophils % 2.8; HCT 34.7 % (36.0-46.0); HGB 11.6 g/dL (12.0-15.5); Immature Grans % 1.3; Mean Corp. HGB Concentration 33.4 g/dL (32.0-36.0); Mean Corpuscular Hemoglobin 31.9 pg (27.0-33.0); Mean Corpuscular Volume 95.3 fL (80-95); Mean Platelet Volume 9.9 fL (8.0-11.0); Monocytes % 10.8; Neutrophils % 60.9; Platelet Count 297 x1000/uL (130-400); RBC 3.64 m/cumm (4.00-5.20); RBC Distribution Width 14.6 % (11.7-14.6); White Blood Cell Count 9.63 k/cumm (4.4-10.8)
[2018-10-10 07:03] LABS: Anion Gap 8.4 mmol/L (3-11); BUN 16 mg/dL (7-18); CO2 25.6 mmol/L (21.0-32.0); CREATININE 0.77 mg/dL (0.55-1.02); Calcium 8.6 mg/dL (8.5-10.1); Chloride 103 mmol/L (98-107); Glucose 134 mg/dL (70-100); Magnesium 1.9 mg/dL (1.8-2.4); Potassium 3.8 mmol/L (3.5-5.1); Sodium 137 mmol/L (136-145)
[2018-10-10] MEDS: Esomeprazole 40 MG CAPCR PO (08:16)
[2018-10-10] MEDS: Insulin Aspart 300 UNITS/3 ML PEN 30 UNITS SC (08:22)
--- NOTE | 2018-10-10 08:30 | PGE_ITS ---
Date of Service Date of service: 10/10/18 Time of Service: 08:28 Subjective Interval history since last seen: No IV access - on all PO meds. Afib still - 80-90's at rest, low 100 with movement; Crackles in L. Still VIEIRA - better, almost baseline. Not requiring oxygen 96%. When ambulating, she is at baseline. Wants to go home. Objective Objective Clinical Data: Abnormal lab results 10/10/18 10/10/18 Range/Units 06:15 06:15 RBC 3.64 L (4.00-5.20) m/cumm Hgb 11.6 L (12.0-15.5) g/dL Hct 34.7 L (36.0-46.0) % MCV 95.3 H (80-95) fL Absolute Monocytes 1.04 H (0.11-0.7) k/cumm Glucose 134 H (70-100) mg/dL Vital Signs Temperature 36 C L 10/10/18 04:05 Temperature Source Temporal Artery Scan 10/10/18 04:05 Pulse 85 10/10/18 05:57 Pulse Rhythm Irregular 10/07/18 08:30 Pulse 97 H 10/10/18 06:00 Respiratory Rate 20 10/10/18 06:00 Respiratory Effort Non-Labored 10/10/18 04:05 Respiratory Depth Normal 10/10/18 04:05 Respiratory Pattern Normal 10/10/18 04:05 Blood Pressure 107/55 L 10/10/18 05:57 Blood Pressure Mean 67 10/10/18 05:57 Blood Pressure Position Supine 10/10/18 04:05 Pulse Oximetry 93 L 10/10/18 05:57 Oxygen Delivery Method Room Air 10/10/18 04:05 Oxygen Flow Rate 0 10/10/18 04:05 Pain Level 0 10/10/18 04:05 Comment 10/07/18 04:24 Intake & Output 10/09/18 10/09/18 10/10/18 11:59 23:59 11:59 Intake Total 283.334 / 943.334 660 / 943.334 Output Total 1700 / 2400 700 / 2400 1325 / 1325 Balance -1416.666 / -1456.666 -40 / -1456.666 -1325 / -1325 Weight 147 kg 146.9 kg Intake: IV 43.334 / 43.334 Oral 240 / 900 660 / 900 Output: Urine 1700 / 2400 700 / 2400 1325 / 1325 Other: Urine Color Yellow Light Anna Light Anna Urine Appearance Clear Clear Cloudy Urine Odor None None Normal Comment Mixed w/ loose stool mixed with stool Amount approximated as there was liquid stool and the patient put all the paper and wipes in the bucket also Stool Size Smear Moderate Stool Characteristics Soft Soft Formed Liquid Voiding Methods Bedside Commode Bedside Commode Bedside Commode Laboratory Results WBC 9.63 k/cumm (4.4-10.8) 10/10/18 06:15 RBC 3.64 m/cumm (4.00-5.20) L 10/10/18 06:15 Hgb 11.6 g/dL (12.0-15.5) L 10/10/18 06:15 Hct 34.7 % (36.0-46.0) L 10/10/18 06:15 MCV 95.3 fL (80-95) H 10/10/18 06:15 MCH 31.9 pg (27.0-33.0) 10/10/18 06:15 MCHC 33.4 g/dL (32.0-36.0) 10/10/18 06:15 RDW 14.6 % (11.7-14.6) 10/10/18 06:15 Plt Count 297 x1000/uL (130-400) 10/10/18 06:15 MPV 9.9 fL (8.0-11.0) 10/10/18 06:15 Immature Gran % 1.3 10/10/18 06:15 Neutrophils % 60.9 10/10/18 06:15 Lymphocytes % 24.0 10/10/18 06:15 Monocytes % 10.8 10/10/18 06:15 Eosinophils % 2.8 10/10/18 06:15 Basophils % 0.2 10/10/18 06:15 Absolute Neutrophils 5.86 k/cumm (1.2-6.7) 10/10/18 06:15 Absolute Lymphocytes 2.31 k/cumm (1.2-3.4) 10/10/18 06:15 Absolute Monocytes 1.04 k/cumm (0.11-0.7) H 10/10/18 06:15 Absolute Eosinophils 0.27 k/cumm (0.0-0.7) 10/10/18 06:15 Absolute Basophils 0.02 k/cumm (0.0-0.2) 10/10/18 06:15 Sodium 137 mmol/L (136-145) 10/10/18 06:15 Potassium 3.8 mmol/L (3.5-5.1) 10/10/18 06:15 Chloride 103 mmol/L (98-107) 10/10/18 06:15 Carbon Dioxide 25.6 mmol/L (21.0-32.0) 10/10/18 06:15 Anion Gap 8.4 mmol/L (3-11) 10/10/18 06:15 BUN 16 mg/dL (7-18) 10/10/18 06:15 Creatinine 0.77 mg/dL (0.55-1.02) 10/10/18 06:15 Estimated GFR/1.73 m2 >= 60.00 (mL/min/1.73m2) 10/10/18 06:15 Glucose 134 mg/dL (70-100) H 10/10/18 06:15 Lactate 1.5 mmol/l (0.6-1.4) H 10/06/18 13:38 Calcium 8.6 mg/dL (8.5-10.1) 10/10/18 06:15 Magnesium 1.9 mg/dL (1.8-2.4) 10/10/18 06:15 Total Bilirubin 1.2 mg/dL (0.2-1.0) H 10/05/18 20:35 AST 21 U/L (15-37) 10/05/18 20:35 ALT 24 U/L (12-78) 10/05/18 20:35 Alkaline Phosphatase 96 U/L (46-116) 10/05/18 20:35 Troponin I < 0.05 ng/mL (0.00-0.06) 10/05/18 20:35 NT-Pro-B Natriuret Pep 1068 pg/mL (-299) H 10/05/18 01:48 Total Protein 7.1 g/dL (6.4-8.2) 10/05/18 20:35 Albumin 2.7 g/dL (3.4-5.0) L 10/05/18 20:35 TSH 1.08 uIU/mL (0.358-3.74) 10/06/18 06:36 Urine Color Yellow (Yellow) 10/07/18 15:41 Urine Clarity Clear (Clear) 10/07/18 15:41 Urine pH 5.5 (5-8) 10/07/18 15:41 Ur Specific [place] <= 1.005 (1.005-1.025) 10/07/18 15:41 Urine Protein Negative mg/dL (Negative) 10/07/18 15:41 Urine Ketones Negative mg/dL (Negative) 10/07/18 15:41 Urine Blood Trace-lysed (Negative) H 10/07/18 15:41 Urine Nitrite Negative (Negative) 10/07/18 15:41 Urine Bilirubin Negative (Negative) 10/07/18 15:41 Urine Urobilinogen 0.2 EU/dL (Up TO 0.2) 10/07/18 15:41 Ur Leukocyte Esterase Negative (Negative) 10/07/18 15:41 Urine RBC Negative (0-2) 10/07/18 15:41 Urine WBC 3-5 HPF (0-5) 10/07/18 15:41 Ur Epithelial Cells Moderate HPF (Negative) 10/07/18 15:41 Urine Crystals Negative HPF (Negative) 10/07/18 15:41 Urine Bacteria Rare HPF (Negative) 10/07/18 15:41 Urine Mucus Negative (Negative) 10/07/18 15:41 Urine Other Few yeast (Negative) 10/07/18 15:41 Ur Culture Indicated? No/sq. contamination 10/07/18 15:41 Urine Glucose 250 mg/dL (Negative) H 10/07/18 15:41
[2018-10-10] MEDS: Ciprofloxacin 500 MG TAB PO (09:08)
[2018-10-10] MEDS: Cholecalciferol (Vitamin D3) 1,000 UNIT TAB 1000 UNITS PO (09:08)
[2018-10-10] MEDS: Cyanocobalamin 500 MCG TAB 1000 MCG PO (09:08)
[2018-10-10] MEDS: Omega-3 Fatty Acids 1000 MG CAP PO (09:08)
[2018-10-10] MEDS: Multivitamin TAB 1 TAB PO (09:08)
[2018-10-10] MEDS: DULoxetine 30 MG CAP 60 MG PO (09:08)
[2018-10-10] MEDS: buPROPion-CR 100 MG TABCR PO (09:08)
[2018-10-10] MEDS: predniSONE 10 MG TAB PO (09:09)
[2018-10-10] MEDS: Celecoxib 200 MG CAP PO (09:09)
[2018-10-10] MEDS: Losartan 50 MG TAB PO (09:09)
[2018-10-10] MEDS: Insulin Glargine 300 UNITS/3 ML PEN 50 UNITS SC (09:11)
[2018-10-10] MEDS: Nystatin POWDER 60 GM JAR TP (09:12)
--- NOTE | 2018-10-10 12:15 | W.PM.DS.N ---
Date of service: 10/10/18 Time of Service: 12:15 DS: Diagnosis Discharge Diagnosis (1) UTI (urinary tract infection): Status: Acute Asessment and Plan: Due to 2 different strains of E. Coli, present on admission (2) Sepsis due to Escherichia coli (E. coli): Status: Resolved (3) Atrial fibrillation with RVR: Status: Acute (4) Hyponatremia: Status: Resolved (5) Acute diastolic CHF (congestive heart failure): Status: Acute (6) Weakness: Status: Acute (7) Pulmonary hypertension: Status: Chronic (8) Bilateral nephrolithiasis: Status: Chronic (9) Steroid dependent: Status: Chronic (10) IDDM (insulin dependent diabetes mellitus): Status: Chronic (11) Hypomagnesemia: Status: Resolved (12) Obesity, morbid, BMI 40.0-49.9: Status: Chronic (13) Ambulatory dysfunction: Status: Chronic (14) Obstructive sleep apnea: Status: Suspected Discharge Plan Disposition Patient Disposition: HOME W/HOME HEALTH SERVICE Condition: Stable Discharge Details Reason For Visit: UTI, WEAKNESS Admit Date/Time: 10/06/18 08:55 Admit Provider: Enrique Wood Attending Provider: Enrique Wood Primary Care Provider: Marleen Warren [facility] Course Hospital Course: Ms Chester is a 73 year old obese female with PMHx of atrial fibrillation, nephrolithiasis, ambulatory dysfunction (wheelchair dependent), chronic hyponatremia, admitted to [facility] medical surgical floor with cardiac monitoring on 10/05/18 for sepsis due to a E. Coli UTI as well as rapid atrial fibrillation. The patient was treated with IV antibiotics (ceftriaxone), IV fluids, received additional steroids in setting of acute illness and chronic steroid dependence. She did require a transfer to ICU on 10/07/18 for IV cardizem drip. This was transitioned to PO short acting cardizem 90 mg PO TID and on discharge is being transitioned to cardizem CD 300 mg daily. She remains on pradaxa for anticoagulation. She did go into mild acute diastolic/rate dependent CHF, requiring IV diuresis, but is doing better from that stand point. She will require ongoing diuretics on discharge. She will benefit from a referral to outpatient cardiology as well as a repeat attempt at a sleep study (last tried 15 years ago, did not tolerate mask). We also recommend patient's PCP to set up a Zio patch monitor for this patient as outpatient. As for the E. Coli UTI, because her fevers persisted for 3 days despite appropriate IV antibiotics per C&S results, antibiotics were changed to meropenem on 10/07/18. She remained on meropenem until 10/09/18, when she was changed to ciprofloxacin (her blood cultures were negative, as was repeat Urine C&S). She does have evidence of nephrolithiasis on ultrasound, but no evidence of obstruction. Outpatient urology follow up is recommended. Patient is being discharged home with 8 more days of ciprofloxacin, for a total of a 14 day course for a complicated UTI. She is being discharged home with a steroid taper. We are referring her for home health nursing, PT, OT and RESEARCH RECRUITER. A total of 60 minutes were spent on care for the patient as well as on the discharge summary on the day of discharge. Home Meds and New Rx's Prescriptions: New loperamide 2 mg Capsule 2 mg PO QLOOSE PRNQty: 30 RF: 0 ciprofloxacin HCl 500 mg Tablet 500 mg PO BID Qty: 16 RF: 0 diltiazem HCl 300 mg Capsule,Extended Release 24hr 300 mg PO DAILY Qty: 30 RF: 0 docusate sodium [Colace] 100 mg Capsule 100 mg PO TID PRN PRN (Reason: constipation) Qty: 30 RF: 0 furosemide [Lasix] 20 mg tablet 20 mg PO DAILY Qty: 10 RF: 0 prednisone 2.5 mg tablet 2.5 mg PO DAILY Qty: 3 RF: 0 Continued multivitamin [Daily Value] 1 EACH tablet 1 ea PO DAILY RF: 0 metformin 500 MG tablet 1,000 mg PO BID RF: 0 lutein 20 MG capsule 20 mg PO DAILY RF: 0 Xolegel 45 GM gel 45 gm Topical PRN PRNRF: 0 Victoza 2-Tree 0.6 MG/0.1 ML pen injector 1.8 mg SQ HS RF: 0 melatonin 10 MG capsule 10 mg PO HS RF: 0 mecobalamin (vitamin B12) 1,000 MCG tablet,disintegrating 1,000 mcg Sublingual DAILY RF: 0 ascorbic acid (vitamin C) [Vitamin C] 1,000 MG tablet extended release 500 mg PO DAILY RF: 0 cholecalciferol (vitamin D3) 1,000 UNIT capsule 1,000 unit PO DAILY RF: 0 Calcium Magnesium 1 EACH tablet 1 ea PO RF: 0 losartan 50 MG tablet 50 mg PO DAILY RF: 0 celecoxib [Celebrex] 200 MG capsule 200 mg PO DAILY RF: 0 metoprolol tartrate 100 MG tablet 100 mg PO BID RF: 0 prednisone 5 MG tablet 5 mg PO DAILY RF: 0 diazepam 2 MG tablet 2 mg PO Q6H PRN RF: 0 Co [id number] E-Fish Oil 1 EACH capsule 1 cap PO HS RF: 0 duloxetine [Cymbalta] 60 MG capsule,delayed release(DR/EC) 60 mg PO DAILY RF: 0 Livalo 2 MG tablet 2 mg PO DAILY RF: 0 Pradaxa 150 MG capsule 150 mg PO BID RF: 0 Novolog Flexpen U-100 Insulin 100 UNIT/ML insulin pen 30 unit SQ BID RF: 0 Toujeo SoloStar U-300 Insulin 300 unit/mL (1.5 mL) Insulin Pen 90 unit SUBCUT QAM RF: 0 bupropion HCl [Wellbutrin SR] 100 mg Tablet Sustained-Release 12 Hr 100 mg PO BID RF: 0 Discharge Instructions Instructions: Atrial Fibrillation (DC) Additional Instructions: Finish your antibiotics as prescribed. Return to the hospital with any fever, bleeding, chest pain, or shortness of breath. Take 7.5 mg of prednisone daily for the next 3 days, then resume home dose of 5 mg daily. Weigh yourself daily. Contact your PCP if you are noticing that you have gained 3 lbs or greater in 3 days. Follow up with your PCP in 1-2 weeks, urology, cardiology. Speak with your PCP about a sleep study. Care Plan Goals: Home with home health nursing, PT, OT, RESEARCH RECRUITER Referrals: Andres Fernandez MD [ [facility] STAFF PHYSICIAN] - Maximo Pickett MD [ NON-[facility] STAFF PHYSICIAN] - (Afib, CHF) Marleen Warren MD [Primary Care Provider] - Activity:: Activity as Tolerated Equipment/Supplies:: No Equipment Needed Diet:: consistent carb low sodium Discharge Orders Discharge Orders: Discharge Order (Routine); Ordered 10/10/18 Ordered By: Sapna Bro Other Ambulatory Orders: Basic Metabolic Panel (Routine) Timeframe: 1 Week Location: Determined by Patient Ordered By: Sapna Bro Magnesium (Routine) Timeframe: 1 Week Location: Determined by Patient Ordered By: Sapna Bro Exam Narrative Exam Narrative: General: Very pleasant obese female, sitting comfortably in a chair, A&Ox3, NAD HEENT: EOMI, MMM Heart: irregularly irregular rhythm, no m/r/g Lungs: quiet crackles at L base GI: abdomen is soft, nontender, nondistended Extremities: BLE with nonpitting edema (chronic, per patient). DS: Data Vitals/I&O Vitals and I&O: Vital Signs Temperature 36.4 C L 10/10/18 12:11 Temperature Source Temporal Artery Scan 10/10/18 12:11 Pulse 94 H 10/10/18 09:25 Pulse Rhythm Irregular 10/07/18 08:30 Pulse 108 H 10/10/18 09:25 Respiratory Rate 20 10/10/18 09:25 Respiratory Effort Short of Breath 10/10/18 07:35 Respiratory Depth Normal 10/10/18 07:35 Respiratory Pattern Tachypnea 10/10/18 07:35 Blood Pressure 126/71 10/10/18 09:25 Blood Pressure Mean 85 10/10/18 09:25 Blood Pressure Position Supine 10/10/18 04:05 Pulse Oximetry 95 10/10/18 12:11 Oxygen Delivery Method Room Air 10/10/18 12:11 Oxygen Flow Rate 0 10/10/18 12:11 Pain Level 0 10/10/18 07:35 Comment 10/07/18 04:24 Intake & Output 10/09/18 10/10/18 10/10/18 23:59 11:59 23:59 Intake Total 660 / 943.334 480 / 480 Output Total 700 / 2400 1325 / 1875 550 / 1875 Balance -40 / -1456.666 -845 / -1395 -550 / -1395 Weight 146.9 kg Intake: Oral 660 / 900 480 / 480 Output: Urine 700 / 2400 1325 / 1875 550 / 1875 Other: Urine Color Light Anna Light Anna Urine Appearance Clear Cloudy Clear Urine Odor None Normal None Comment mixed with stool Amount approximated as there was liquid stool and the patient put all the paper and wipes in the bucket also Stool Occult Blood Negative Stool Size Large Stool Characteristics Liquid Brown Voiding Methods Bedside Commode Bedside Commode Bedside Commode Completed studies during hospitalization [Text1]: CXR 10/05/18: No acute abnormality. US renal 10/06/18: Bilateral renal calculi. No evidence of hydronephrosis. Distended urinary bladder with elevated postvoid residual. Echo 10/06/18: The patient was in atrial fibrillation throughout study. This rhythm can interfere with accurate global and segmental wall motion analysis. Summary: 1. Left ventricle: The cavity size was normal. Wall thickness was increased increased in a pattern of mild to moderate LVH. Systolic function was normal. The estimated ejection fraction was 55-60%. Wall motion was normal; there were no regional wall motion abnormalities. 2. Mitral valve: There was mild regurgitation. 3. Left atrium: The atrium was mildly dilated. 4. Right ventricle: The cavity size was normal. Wall thickness was normal. Systolic function was normal. 5. Right atrium: The atrium was mildly dilated. Pulmonary artery: Pulmonary systolic pressure was within the normal range, in the range of 25mm Hg to 30mm Hg. CXR 10/07/18: No evidence of acute change. Labs on day of discharge: Labs from last 24 hours 10/10/18 10/10/18 06:15 06:15 WBC 9.63 RBC 3.64 L Hgb 11.6 L Hct 34.7 L MCV 95.3 H MCH 31.9 MCHC 33.4 RDW 14.6 Plt Count 297 MPV 9.9 Immature Gran % 1.3 Neutrophils % 60.9 Lymphocytes % 24.0 Monocytes % 10.8 Eosinophils % 2.8 Basophils % 0.2 Absolute Neutrophils 5.86 Absolute Lymphocytes 2.31 Absolute Monocytes 1.04 H Absolute Eosinophils 0.27 Absolute Basophils 0.02 Sodium 137 Potassium 3.8 Chloride 103 Carbon Dioxide 25.6 Anion Gap 8.4 BUN 16 Creatinine 0.77 Estimated GFR/1.73 m2 >= 60.00 Glucose 134 H Calcium 8.6 Magnesium 1.9 Preliminary micro results at discharge 10/05/18 21:31 Blood Culture - Preliminary Blood NO GROWTH 96 HOURS 10/05/18 21:18 Blood Culture - Preliminary Blood NO GROWTH 96 HOURS PFSH Medical History Rheumatoid arteritis (Acute) Hx of hyperlipidemia (Acute) Atrial fibrillation (Chronic) Diabetes (Chronic) HTN (hypertension) (Chronic) Surgical History History of hysterectomy (Chronic) Hx of cholecystectomy (Chronic) Social History Smoking/Tobacco Use Status: Former Tobacco Use Drug use: Never Additional Social history: Lives with her Valeriy on [address] in [facility], moving to handicapped apartment They moved up here from [place] to be near their daughter. 2 sons in [place] area. 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
[2018-10-10] MEDS: dilTIAZem CD 120 MG CAPCR 240 MG PO (12:19)
--- NOTE | 2018-10-10 12:37 | DSE_ITS ---
Date of service: 10/10/18 Time of Service: 12:15 DS: Diagnosis Discharge Diagnosis (1) UTI (urinary tract infection): Status: Acute Asessment and Plan: Due to 2 different strains of E. Coli, present on admission (2) Sepsis due to Escherichia coli (E. coli): Status: Resolved (3) Atrial fibrillation with RVR: Status: Acute (4) Hyponatremia: Status: Resolved (5) Acute diastolic CHF (congestive heart failure): Status: Acute (6) Weakness: Status: Acute (7) Pulmonary hypertension: Status: Chronic (8) Bilateral nephrolithiasis: Status: Chronic (9) Steroid dependent: Status: Chronic (10) IDDM (insulin dependent diabetes mellitus): Status: Chronic (11) Hypomagnesemia: Status: Resolved (12) Obesity, morbid, BMI 40.0-49.9: Status: Chronic (13) Ambulatory dysfunction: Status: Chronic (14) Obstructive sleep apnea: Status: Suspected Discharge Plan Disposition Patient Disposition: HOME W/HOME HEALTH SERVICE Condition: Stable Discharge Details Reason For Visit: UTI, WEAKNESS Admit Date/Time: 10/06/18 08:55 Admit Provider: Enrique Wood Attending Provider: Enrique Wood Primary Care Provider: Marleen Warren [facility] Course Hospital Course: Ms Chester is a 73 year old obese female with PMHx of atrial fibrillation, nephrolithiasis, ambulatory dysfunction (wheelchair dependent), chronic hyponatremia, [facility] medical surgical floor with cardiac monitoring on 10/05/18 for sepsis due to a E. Coli UTI as well as rapid atrial fibrillation. The patient was treated with IV antibiotics (ceftriaxone), IV fluids, received additional steroids in setting of acute illness and chronic steroid dependence. She did require a transfer to ICU on 10/07/18 for IV cardizem drip. This was transitioned to PO short acting cardizem 90 mg PO TID and on discharge is being transitioned to cardizem CD 300 mg daily. She remains on pradaxa for anticoagulation. She did go into mild acute diastolic/rate dependent CHF, requiring IV diuresis, but is doing better from that stand point. She will require ongoing diuretics on discharge. She will benefit from a referral to outpatient cardiology as well as a repeat attempt at a sleep study (last tried 15 years ago, did not tolerate mask). We also recommend patient's PCP to set up a Zio patch monitor for this patient as outpatient. As for the E. Coli UTI, because her fevers persisted for 3 days despite appropriate IV antibiotics per C&S results, antibiotics were changed to meropenem on 10/07/18. She remained on meropenem until 10/09/18, when she was changed to ciprofloxacin (her blood cultures were negative, as was repeat Urine C&S). She does have evidence of nephrolithiasis on ultrasound, but no evidence of obstruction. Outpatient urology follow up is recommended. Patient is being discharged home with 8 more days of ciprofloxacin, for a total of a 14 day course for a complicated UTI. She is being discharged home with a steroid taper. We are referring her for home health nursing, PT, OT and CLAIM REP. A total of 60 minutes were spent on care for the patient as well as on the discharge summary on the day of discharge. Home Meds and New Rx's Prescriptions: New loperamide 2 mg Capsule 2 mg PO QLOOSE PRNQty: 30 RF: 0 ciprofloxacin HCl 500 mg Tablet 500 mg PO BID Qty: 16 RF: 0 diltiazem HCl 300 mg Capsule,Extended Release 24hr 300 mg PO DAILY Qty: 30 RF: 0 docusate sodium [Colace] 100 mg Capsule 100 mg PO TID PRN PRN (Reason: constipation) Qty: 30 RF: 0 furosemide [Lasix] 20 mg tablet 20 mg PO DAILY Qty: 10 RF: 0 prednisone 2.5 mg tablet 2.5 mg PO DAILY Qty: 3 RF: 0 Continued multivitamin [Daily Value] 1 EACH tablet 1 ea PO DAILY RF: 0 metformin 500 MG tablet 1,000 mg PO BID RF: 0 lutein 20 MG capsule 20 mg PO DAILY RF: 0 Xolegel 45 GM gel 45 gm Topical PRN PRNRF: 0 Victoza 2-Tree 0.6 MG/0.1 ML pen injector 1.8 mg SQ HS RF: 0 melatonin 10 MG capsule 10 mg PO HS RF: 0 mecobalamin (vitamin B12) 1,000 MCG tablet,disintegrating 1,000 mcg Sublingual DAILY RF: 0 ascorbic acid (vitamin C) [Vitamin C] 1,000 MG tablet extended release 500 mg PO DAILY RF: 0 cholecalciferol (vitamin D3) 1,000 UNIT capsule 1,000 unit PO DAILY RF: 0 Calcium Magnesium 1 EACH tablet 1 ea PO RF: 0 losartan 50 MG tablet 50 mg PO DAILY RF: 0 celecoxib [Celebrex] 200 MG capsule 200 mg PO DAILY RF: 0 metoprolol tartrate 100 MG tablet 100 mg PO BID RF: 0 prednisone 5 MG tablet 5 mg PO DAILY RF: 0 diazepam 2 MG tablet 2 mg PO Q6H PRN RF: 0 Co [id number] E-Fish Oil 1 EACH capsule 1 cap PO HS RF: 0 duloxetine [Cymbalta] 60 MG capsule,delayed release(DR/EC) 60 mg PO DAILY RF: 0 Livalo 2 MG tablet 2 mg PO DAILY RF: 0 Pradaxa 150 MG capsule 150 mg PO BID RF: 0 Novolog Flexpen U-100 Insulin 100 UNIT/ML insulin pen 30 unit SQ BID RF: 0 Toujeo SoloStar U-300 Insulin 300 unit/mL (1.5 mL) Insulin Pen 90 unit SUBCUT QAM RF: 0 bupropion HCl [Wellbutrin SR] 100 mg Tablet Sustained-Release 12 Hr 100 mg PO BID RF: 0 Discharge Instructions Instructions: Atrial Fibrillation (DC) Additional Instructions: Finish your antibiotics as prescribed. Return to the hospital with any fever, bleeding, chest pain, or shortness of breath. Take 7.5 mg of prednisone daily for the next 3 days, then resume home dose of 5 mg daily. Weigh yourself daily. Contact your PCP if you are noticing that you have gained 3 lbs or greater in 3 days. Follow up with your PCP in 1-2 weeks, urology, cardiology. Speak with your PCP about a sleep study. Care Plan Goals: Home with home health nursing, PT, OT, CLAIM REP Referrals: Andres Fernandez MD [ [facility] STAFF PHYSICIAN] - Maximo Pickett MD [ NON-[facility] STAFF PHYSICIAN] - (Afib, CHF) Marleen Warren MD [Primary Care Provider] - Activity:: Activity as Tolerated Equipment/Supplies:: No Equipment Needed Diet:: consistent carb low sodium Discharge Orders Discharge Orders: Discharge Order (Routine); Ordered 10/10/18 Ordered By: Sapna Bro Other Ambulatory Orders: Basic Metabolic Panel (Routine) Timeframe: 1 Week Location: Determined by Patient Ordered By: Sapna Bro Magnesium (Routine) Timeframe: 1 Week Location: Determined by Patient Ordered By: Sapna Bro Exam Narrative Exam Narrative: General: Very pleasant obese female, sitting comfortably in a chair, A&Ox3, NAD HEENT: EOMI, MMM Heart: irregularly irregular rhythm, no m/r/g Lungs: quiet crackles at L base GI: abdomen is soft, nontender, nondistended Extremities: BLE with nonpitting edema (chronic, per patient). DS: Data Vitals/I&O Vitals and I&O: Vital Signs Temperature 36.4 C L 10/10/18 12:11 Temperature Source Temporal Artery Scan 10/10/18 12:11 Pulse 94 H 10/10/18 09:25 Pulse Rhythm Irregular 10/07/18 08:30 Pulse 108 H 10/10/18 09:25 Respiratory Rate 20 10/10/18 09:25 Respiratory Effort Short of Breath 10/10/18 07:35 Respiratory Depth Normal 10/10/18 07:35 Respiratory Pattern Tachypnea 10/10/18 07:35 Blood Pressure 126/71 10/10/18 09:25 Blood Pressure Mean 85 10/10/18 09:25 Blood Pressure Position Supine 10/10/18 04:05 Pulse Oximetry 95 10/10/18 12:11 Oxygen Delivery Method Room Air 10/10/18 12:11 Oxygen Flow Rate 0 10/10/18 12:11 Pain Level 0 10/10/18 07:35 Comment 10/07/18 04:24 Intake & Output 10/09/18 10/10/18 10/10/18 23:59 11:59 23:59 Intake Total 660 / 943.334 480 / 480 Output Total 700 / 2400 1325 / 1875 550 / 1875 Balance -40 / -1456.666 -845 / -1395 -550 / -1395 Weight 146.9 kg Intake: Oral 660 / 900 480 / 480 Output: Urine 700 / 2400 1325 / 1875 550 / 1875 Other: Urine Color Light Anna Light Anna Urine Appearance Clear Cloudy Clear Urine Odor None Normal None Comment mixed with stool Amount approximated as there was liquid stool and the patient put all the paper and wipes in the bucket also Stool Occult Blood Negative Stool Size Large Stool Characteristics Liquid Brown Voiding Methods Bedside Commode Bedside Commode Bedside Commode Completed studies during hospitalization [Text1]: CXR 10/05/18: No acute abnormality. US renal 10/06/18: Bilateral renal calculi. No evidence of hydronephrosis. Distended urinary bladder with elevated postvoid residual. Echo 10/06/18: The patient was in atrial fibrillation throughout study. This rhythm can interfere with accurate global and segmental wall motion analysis. Summary: 1. Left ventricle: The cavity size was normal. Wall thickness was increased increased in a pattern of mild to moderate LVH. Systolic function was normal. The estimated ejection fraction was 55-60%. Wall motion was normal; there were no regional wall motion abnormalities. 2. Mitral valve: There was mild regurgitation. 3. Left atrium: The atrium was mildly dilated. 4. Right ventricle: The cavity size was normal. Wall thickness was normal. Systolic function was normal. 5. Right atrium: The atrium was mildly dilated. Pulmonary artery: Pulmonary systolic pressure was within the normal range, in the range of 25mm Hg to 30mm Hg. CXR 10/07/18: No evidence of acute change. Labs on day of discharge: Labs from last 24 hours 10/10/18 10/10/18 06:15 06:15 WBC 9.63 RBC 3.64 L Hgb 11.6 L Hct 34.7 L MCV 95.3 H MCH 31.9 MCHC 33.4 RDW 14.6 Plt Count 297 MPV 9.9 Immature Gran % 1.3 Neutrophils % 60.9 Lymphocytes % 24.0 Monocytes % 10.8 Eosinophils % 2.8 Basophils % 0.2 Absolute Neutrophils 5.86 Absolute Lymphocytes 2.31 Absolute Monocytes 1.04 H Absolute Eosinophils 0.27 Absolute Basophils 0.02 Sodium 137 Potassium 3.8 Chloride 103 Carbon Dioxide 25.6 Anion Gap 8.4 BUN 16 Creatinine 0.77 Estimated GFR/1.73 m2 >= 60.00 Glucose 134 H Calcium 8.6 Magnesium 1.9 Preliminary micro results at discharge 10/05/18 21:31 Blood Culture - Preliminary Blood NO GROWTH 96 HOURS 10/05/18 21:18 Blood Culture - Preliminary Blood NO GROWTH 96 HOURS PFSH Medical History Rheumatoid arteritis (Acute) Hx of hyperlipidemia (Acute) Atrial fibrillation (Chronic) Diabetes (Chronic) HTN (hypertension) (Chronic) Surgical History History of hysterectomy (Chronic) Hx of cholecystectomy (Chronic) Social History Smoking/Tobacco Use Status: Former Tobacco Use Drug use: Never Additional Social history: Lives with her Valeriy on [address] in [facility], moving to handicapped apartment They moved up here from [place] to be near their daughter. 2 sons in [place] area. 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
--- NOTE | 2018-10-10 13:39 | PDOC.HHF2F ---
1. Encounter Date and Reason I certify that SARAH LUNSFORD was seen by Sapna Bro on 10/10/18 and that I had a [id number] encounter with this patient that meets the physician face to face encounter requirements. 2. Clinical Findings Supporting Skilled Need and Homebound Status I certify that home health services are medically necessary, include either intermittent senior care and/or physical/speech therapy, and that this patient is homebound in that absences from the home require considerable and taxing effort and are infrequent or of short duration, or are attributable to the need to receive medical care. [X] (a) Attached documentation from encounter provides clinical findings supporting skilled need and homebound status (including what assistance patient requires to leave the home). The encounter with the patient was in whole, or in part, for the following medical condition, which is the primary reason for home health care: UTI, WEAKNESS Fci: Afib, CHF, medication teaching/assessment. Bloodwork in 1 week (BMP, magnesium) - results to PCP Physical Therapy: eval and treat Occupational Therapy: eval and treat TNT LINE SUPERVISOR: assess for needs in community Homebound: unable to leave home without assistance 3. Certification and Authentication I certify that I composed the above information based on my clinical judgement relating to this patient's medical condition and, if applicable, clinical findings communicated to me by the NPP or inpatient physician who performed the Home Health Referral. All further orders will be obtained through ___Dr Warren (Community Based Physician - PCP)
--- NOTE | 2018-10-10 14:13 | PDOC.CMDIS ---
LACE Index Scoring Tool - Questions: Length of Stay (in days): 1 Acuity (Admit via E.D.?): Yes Comorbidities: Diabetes w/o Complication E.D. 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 She is moving to a handicapped accessible apartment on Friday which will relieve some of the current stressors. , [place], will transport by car. Patient/Family Education Needs: Discharge instructions and a clear understanding of her limitations.
--- NOTE | 2018-10-10 14:22 | CMDISCH_ITS ---
LACE Index Scoring Tool - Questions: Length of Stay (in days): 1 Acuity (Admit via E.D.?): Yes Comorbidities: Diabetes w/o Complication E.D. 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 She is moving to a handicapped accessible apartment on Friday which will relieve some of the current stressors. , [place], will transport by car. Patient/Family Education Needs: Discharge instructions and a clear understanding of her limitations.
== END 2018-10-10 14:28 | disposition home health service (06) | DRG 689 ==
LOC: ER 22:07 → MS 23:54 → ICU 10-07 14:39 → MS 10-14 10:01
PROVIDERS: Internal Medicine; Admitting Provider Family Medicine; Emergency Provider Physician Assistant; PCP Family Medicine; Visit Provider Internal Medicine
DX: N39.0 Urinary tract infection, site not specified; I50.31 Acute diastolic (congestive) heart failure; E87.1 Hypo-osmolality and hyponatremia; Z68.42 Body mass index [BMI] 45.0-49.9, adult; R19.7 Diarrhea, unspecified; E86.0 Dehydration; I48.91 Unspecified atrial fibrillation; R53.1 Weakness; I27.20 Pulmonary hypertension, unspecified; N20.0 Calculus of kidney; E11.9 Type 2 diabetes mellitus without complications; Z79.4 Long term (current) use of insulin; E83.42 Hypomagnesemia; F43.20 Adjustment disorder, unspecified; E66.01 Morbid (severe) obesity due to excess calories; R26.2 Difficulty in walking, not elsewhere classified; G47.33 Obstructive sleep apnea (adult) (pediatric); Z99.3 Dependence on wheelchair; M06.9 Rheumatoid arthritis, unspecified; Z79.52 Long term (current) use of systemic steroids; Z60.8 Other problems related to social environment; I34.0 Nonrheumatic mitral (valve) insufficiency; Z86.19 Personal history of other infectious and parasitic diseases; Z71.3 Dietary counseling and surveillance; R06.09 Other forms of dyspnea
CPT/HCPCS: 36410; 36415; 36416; 76770; 80048; 80053; 82962; 87040; 87077; 93005; 96365; 96366; 96368; 97110; 97162; 97530; 99219; 99232; 99233; 99239; 99285; 71045; 71046; 81003; 81015; 83605; 83735; 83880; 84443; 84484; 85025; 87086; 87186; 93010; 93306; G0378; J0696; J1941; J3475; J3490; J7512; J7620

== ENCOUNTER 2018-10-28 14:16 | Outpatient (REF) | payer MEDICARE, MEDICAID, SELFPAY ==
[2018-10-28 19:29] LABS: Bilirubin Small (Negative); Blood Large (Negative); Clarity Cloudy (Clear); Glucose Negative (Negative); Ketones Negative (Negative); Leukocyte Esterase Negative (Negative); Nitrite Negative (Negative); Urobilinogen 0.2 EU/dL (Up TO 0.2); pH 5.5 (5-8)
[2018-10-28 19:40] LABS: Bacteria Many HPF (Negative); C & S Indicated? C&S Done As Ordered; Casts Negative LPF (Negative); Crystals Negative HPF (Negative); Epithelial Cells Few HPF (Negative); Mucus Negative (Negative); Other Cells Negative (Negative); RBC >50 (0-2)
== END 2018-10-28 14:36 ==
LOC: NCHCN 14:16
PROVIDERS: PCP Family Medicine; Visit Provider Family Medicine
DX: N39.0 Urinary tract infection, site not specified (principal)
CPT/HCPCS: 81003; 81015; 87086

== ENCOUNTER 2018-11-20 04:01 | Outpatient (CLI) | payer MEDICARE, MEDICAID, SELFPAY | END 2018-11-20 04:21 | PROVIDERS: PCP Family Medicine; Visit Provider Family Medicine | DX: I48.91 Unspecified atrial fibrillation (principal) | CPT/HCPCS: 93225 ==

== ENCOUNTER 2018-11-23 16:44 | Outpatient (CLI) | payer MEDICARE, MEDICAID, SELFPAY ==
--- NOTE | 2018-11-24 14:35 | HOLTER_ITS ---
DATE OF DICTATION: November 24, 2018 DATE OF REPORT: November 24, 2018 STUDY INDICATION: AFib REQUESTING PROVIDER: Not available. FINDINGS: The patient was monitored for 23 hours and 53 minutes. Atrial fibrillation throughout. Average heart rate 160 bpm, range 142-195 bpm. Occasional PVC's, 2% of total beats. Nine ventricular runs, longest 44 beats. These runs resemble atrial fibrillation with aberrant conduction. No pauses greater than 3 seconds. No high-degree heart block. Three patient events. All events correlated with atrial fibrillation with rapid ventricular response. FINAL INTERPRETATION: Atrial fibrillation with uncontrolled rapid ventricular response.
== END 2018-11-23 17:04 ==
PROVIDERS: PCP Family Medicine; Visit Provider Family Medicine
DX: I48.91 Unspecified atrial fibrillation (principal)
CPT/HCPCS: 93226

== ENCOUNTER 2018-12-23 16:46 | Outpatient (REF) | payer MEDICARE, MEDICAID, SELFPAY ==
[2018-12-23 18:46] LABS: Bilirubin Negative (Negative); Blood Large (Negative); Clarity Sl Cloudy (Clear); Glucose Negative (Negative); Ketones Negative (Negative); Leukocyte Esterase Negative (Negative); Nitrite Negative (Negative); Specific Gravity >= 1.030 (1.005-1.025); Urobilinogen 0.2 EU/dL (Up TO 0.2)
[2018-12-23 18:55] LABS: Bacteria Moderate HPF (Negative); C & S Indicated? No/Sq. Contamination; Casts Negative LPF (Negative); Crystals Many Amorphous HPF (Negative); Epithelial Cells Many HPF (Negative); Mucus Negative (Negative); RBC >50 (0-2); WBC >50 HPF (0-5)
== END 2018-12-23 17:06 ==
LOC: NCHCN 16:46
PROVIDERS: PCP Family Medicine; Visit Provider Family Medicine
DX: N39.0 Urinary tract infection, site not specified (principal); R19.7 Diarrhea, unspecified
CPT/HCPCS: 81003; 81015; 87324

== ENCOUNTER 2019-11-09 08:00 | Inpatient (IN) | payer MEDICARE, MEDICAID, SELFPAY ==
[2019-11-09] VITALS (129 sets, daily range): BP systolic 81–136; BP diastolic 36–97; PULSE 82–141; RESP 14–30; TEMP 27.1–37.7; O2SAT 90–99
--- NOTE | 2019-11-09 08:00 | RT.EKG_ITS ---
APPROVED REPORT Exam: Resting ECG Patient Location: E HR:122 bpm ECG Measurements Heart Rate 122 AXIS WA [id number] P [id number] QRSd 91 QRS 17 QT 312 T 175 QTc 445 <Conclusion> Atrial fibrillation...V-rate 90-153, irreg A-activity Low voltage, extremity and precordial leads...extremity<0.5mV, precordial<1.0mV No acute ST elevation or depression. No acute change from previous EKG.
--- NOTE | 2019-11-09 08:34 | ED.GENADUL_ITS ---
Discharge Plan Disposition Patient Disposition: [facility] INPATIENT Condition: Fair Discharge Details Chief Complaint: GenMedical Clinical Impression: Diarrhea, UTI (urinary tract infection), Dehydration, Ureterolithiasis, Hyperglycemia, Lactic acidosis Admit Date/Time: 11/09/19 12:10 Admit Provider: Rey Rudolph Attending Provider: Rey Rudolph Primary Care Provider: Marleen Warren ED Provider: Lynne Caputo Medical Decision Making 0815 -- 74-year-old female with history of morbid obesity, diabetes, hypertension, hyperlipidemia, sleep apnea, atrial fibrillation, rheumatoid arthritis and wheelchair-bound presents for abdominal pain, vomiting and diarrhea since yesterday. Patient states she does not check her sugar regularly. Glucose on arrival 462. She took her regular insulin this morning. EKG on arrival notes a rate of 122, atrial fibrillation without acute ST ischemic changes. Heart rate 130s. Afebrile. She has minimal tenderness in the epigastric region. Brown formed stool noted all around buttocks and pants. Differential diagnosis includes DKA, UTI, gastroenteritis, other acute abdominal process. Will place an IV, bolus IV fluids, screening labs, urinalysis and CT abdomen and pelvis and give a dose of morphine and Zofran and reassess. 1030 --labs and imaging reviewed. Normal white blood cell count and hemoglobin. Glucose 439. Lactate 5.9 which I suspect is due to dehydration, also consider infectious source. Bicarb 22.5. Anion gap 13. Magnesium 1.4. Troponin negative. Urinalysis notes blood in the urine which could be infectious, however patient is also noted to have an 8 mm stone in the UV junction on CT. This was discussed with Dr. Fernandez who agrees with plan for Flomax. No other acute findings on CT. 7 units of regular insulin, 1 g of Rocephin ordered. Heart rate remains 120s. Blood pressure 90s/50s. A dose of 10 mg diltiazem ordered. Will give additional fluids to increase blood pressure, however gently considering history of CHF. 1100 --discussed with hospitalist who accepts patient for admission. 1130 --heart rate still remains within the 120s, blood pressure 90s/50s. EF 55 t o 60% on echo from 2019. Will give additional IV fluids. Will start a diltiazem drip. Discussed with hospitalist will place patient in the ICU. Medical Records Medical records reviewed: Yes I reviewed the patient's medical records. Imaging Data Radiologic Study: Radiologist's impression: CT CHEST/ABD/PEL WO CLINICAL HISTORY: upper abd pain, vomiting, diarrhea. TECHNIQUE: Imaging Protocol: Axial computed tomography images with coronal and sagittal reformatted images were created and reviewed CONTRAST MATERIAL: Noncontrast COMPARISON: CT RENAL COLIC WO CONTRAST from 01/16/2017 FINDINGS: CHEST: The exam is limited by patient motion. Tracheobronchial tree: Patent where visualized. Mediastinum and Clau: No dominant adenopathy or fluid collection. Pulmonary parenchyma: No consolidation or dominant measurable mass. No architectural distortion. Pleura: No effusion or pneumothorax. Lymph nodes: Within normal limits. Aorta: Thoracic portion non-dilated. Heart: Normal size Bones: Degenerative changes ABDOMEN: Exam is limited by patient motion. Liver: Enlarged and fatty. No measurable mass. Gallbladder and biliary tract: Status post cholecystectomy. No biliary dilatation. Pancreas: Normal density, no abnormal calcifications or inflammatory process. Spleen: Normal. Kidneys: Not well evaluated due to motion. There is a stone in the right ureteropelvic junction measuring 8 millimeters, causing moderate hydronephrosis. Additional calcifications are seen in the right renal pelvis as well as upper and lower pole. A few tiny nonobstructing stones are seen in the left kidney. Adrenal glands: No masses seen. Aorta: Abdominal portion non-dilated. Lymph nodes: Within normal limits. PELVIS: Bladder: Nearly empty., No gross wall thickening. Bowel: No obstruction or bowel wall thickening. Mild sigmoid diverticulosis. Peritoneal cavity: No ascites, collection or mesenteric inflammatory response. Bones: Degenerative changes. Reproductive organs: Status post hysterectomy IMPRESSION: Moderate right hydronephrosis secondary to an 8 millimeter stone in the ureteropelvic junction. Additional bilateral renal calculi. Lab Data Lab results reviewed: Yes I reviewed the patient's lab results. Labs: 11/09/19 09:27 Urine - Reflex from Ua Urine Culture - Pending Laboratory Tests Range/Units 11/09/19 11/09/19 11/09/19 08:55 08:55 08:55 WBC (4.4-10.8) k/cumm RBC (4.00-5.20) m/cumm Hgb (12.0-15.5) g/dL Hct (36.0-46.0) % MCV (80-95) fL MCH (27.0-33.0) pg MCHC (32.0-36.0) g/dL RDW (11.7-14.6) % Plt Count (130-400) x1000/uL MPV (8.0-11.0) fL Immature Gran % % Neutrophils % Lymphocytes % Monocytes % Eosinophils % Basophils % Absolute Neutrophils (1.2-6.7) k/cumm Absolute Lymphocytes (1.2-3.4) k/cumm Absolute Monocytes (0.11-0.7) k/cumm Absolute Eosinophils (0.0-0.7) k/cumm Absolute Basophils (0.0-0.2) k/cumm PT (9.3-11.0) sec 12.3 H INR (0.9-1.1) 1.2 H APTT (21.0-31.4) sec 32.3 H Sodium (136-145) mmol/L Potassium (3.5-5.1) mmol/L Chloride (98-107) mmol/L Carbon Dioxide (21.0-32.0) mmol/L Anion Gap (3-11) mmol/L BUN (7-18) mg/dL Creatinine (0.55-1.02) mg/dL Estimated GFR/1.73 m2 (mL/min/1.73m2) Glucose (74-106) mg/dL Lactate (0.6-1.4) mmol/L 5.9 H* Calcium (8.5-10.1) mg/dL Magnesium (1.8-2.4) mg/dL 1.4 L Total Bilirubin (0.2-1.0) mg/dL AST (15-37) U/L ALT (14-59) U/L Alkaline Phosphatase (46-116) U/L Troponin I (<0.06) ng/mL Total Protein (6.4-8.2) g/dL Albumin (3.4-5.0) g/dL Lipase (73-393) U/L 46 TSH (0.36-3.74) uIU/mL Urine Color (Yellow) Urine Clarity (Clear) Urine pH (5-8) Ur Specific [place] (1.005-1.025) Urine Protein (Negative) mg/dL Urine Ketones (Negative) mg/dL Urine Blood (Negative) Urine Nitrite (Negative) Urine Bilirubin (Negative) Urine Urobilinogen (Up TO 0.2) EU/dL Ur Leukocyte Esterase (Negative) Urine RBC (0-2) HPF Urine WBC (0-5) HPF Ur Epithelial Cells (Negative) HPF Urine Crystals (Negative) HPF Urine Bacteria (Negative) HPF Urine Casts (Negative) LPF Urine Mucus (Negative) Ur Culture Indicated? Urine Glucose (Negative) mg/dL Range/Units 11/09/19 11/09/19 11/09/19 08:55 08:55 08:55 WBC (4.4-10.8) k/cumm 7.81 RBC (4.00-5.20) m/cumm 4.35 Hgb (12.0-15.5) g/dL 14.0 Hct (36.0-46.0) % 42.4 MCV (80-95) fL 97.5 H MCH (27.0-33.0) pg 32.2 MCHC (32.0-36.0) g/dL 33.0 RDW (11.7-14.6) % 14.0 Plt Count (130-400) x1000/uL 219 MPV (8.0-11.0) fL 10.0 Immature Gran % % 0.4 Neutrophils % 93.5 Lymphocytes % 4.5 Monocytes % 1.2 Eosinophils % 0.3 Basophils % 0.1 Absolute Neutrophils (1.2-6.7) k/cumm 7.31 H Absolute Lymphocytes (1.2-3.4) k/cumm 0.35 L Absolute Monocytes (0.11-0.7) k/cumm 0.09 L Absolute Eosinophils (0.0-0.7) k/cumm 0.02 Absolute Basophils (0.0-0.2) k/cumm 0.01 PT (9.3-11.0) sec INR (0.9-1.1) APTT (21.0-31.4) sec Sodium (136-145) mmol/L 131 L Potassium (3.5-5.1) mmol/L 3.6 Chloride (98-107) mmol/L 95 L Carbon Dioxide (21.0-32.0) mmol/L 22.5 Anion Gap (3-11) mmol/L 13.5 H BUN (7-18) mg/dL 13 Creatinine (0.55-1.02) mg/dL 1.79 H Estimated GFR/1.73 m2 (mL/min/1.73m2) 27.68 Glucose (74-106) mg/dL 439 H Lactate (0.6-1.4) mmol/L Calcium (8.5-10.1) mg/dL 9.2 Magnesium (1.8-2.4) mg/dL Total Bilirubin (0.2-1.0) mg/dL 0.8 AST (15-37) U/L 44 H ALT (14-59) U/L 41 Alkaline Phosphatase (46-116) U/L 127 H Troponin I (<0.06) ng/mL < 0.05 Total Protein (6.4-8.2) g/dL 6.8 Albumin (3.4-5.0) g/dL 2.8 L Lipase (73-393) U/L TSH (0.36-3.74) uIU/mL 1.87 Urine Color (Yellow) Urine Clarity (Clear) Urine pH (5-8) Ur Specific [place] (1.005-1.025) Urine Protein (Negative) mg/dL Urine Ketones (Negative) mg/dL Urine Blood (Negative) Urine Nitrite (Negative) Urine Bilirubin (Negative) Urine Urobilinogen (Up TO 0.2) EU/dL Ur Leukocyte Esterase (Negative) Urine RBC (0-2) HPF Urine WBC (0-5) HPF Ur Epithelial Cells (Negative) HPF Urine Crystals (Negative) HPF Urine Bacteria (Negative) HPF Urine Casts (Negative) LPF Urine Mucus (Negative) Ur Culture Indicated? Urine Glucose (Negative) mg/dL Range/Units 11/09/19 09:27 WBC (4.4-10.8) k/cumm RBC (4.00-5.20) m/cumm Hgb (12.0-15.5) g/dL Hct (36.0-46.0) % MCV (80-95) fL MCH (27.0-33.0) pg MCHC (32.0-36.0) g/dL RDW (11.7-14.6) % Plt Count (130-400) x1000/uL MPV (8.0-11.0) fL Immature Gran % % Neutrophils % Lymphocytes % Monocytes % Eosinophils % Basophils % Absolute Neutrophils (1.2-6.7) k/cumm Absolute Lymphocytes (1.2-3.4) k/cumm Absolute Monocytes (0.11-0.7) k/cumm Absolute Eosinophils (0.0-0.7) k/cumm Absolute Basophils (0.0-0.2) k/cumm PT (9.3-11.0) sec INR (0.9-1.1) APTT (21.0-31.4) sec Sodium (136-145) mmol/L Potassium (3.5-5.1) mmol/L Chloride (98-107) mmol/L Carbon Dioxide (21.0-32.0) mmol/L Anion Gap (3-11) mmol/L BUN (7-18) mg/dL Creatinine (0.55-1.02) mg/dL Estimated GFR/1.73 m2 (mL/min/1.73m2) Glucose (74-106) mg/dL Lactate (0.6-1.4) mmol/L Calcium (8.5-10.1) mg/dL Magnesium (1.8-2.4) mg/dL Total Bilirubin (0.2-1.0) mg/dL AST (15-37) U/L ALT (14-59) U/L Alkaline Phosphatase (46-116) U/L Troponin I (<0.06) ng/mL Total Protein (6.4-8.2) g/dL Albumin (3.4-5.0) g/dL Lipase (73-393) U/L TSH (0.36-3.74) uIU/mL Urine Color (Yellow) Yellow Urine Clarity (Clear) Sl cloudy Urine pH (5-8) 5.5 Ur Specific [place] (1.005-1.025) 1.020 Urine Protein (Negative) mg/dL Trace H Urine Ketones (Negative) mg/dL 15 H Urine Blood (Negative) Large H Urine Nitrite (Negative) Negative Urine Bilirubin (Negative) Negative Urine Urobilinogen (Up TO 0.2) EU/dL 0.2 Ur Leukocyte Esterase (Negative) Small H Urine RBC (0-2) HPF 20-50 H Urine WBC (0-5) HPF 10-20 H Ur Epithelial Cells (Negative) HPF Few Urine Crystals (Negative) HPF Negative Urine Bacteria (Negative) HPF Few Urine Casts (Negative) LPF Negative Urine Mucus (Negative) Negative Ur Culture Indicated? Yes Urine Glucose (Negative) mg/dL 500 H ECG Data Attestation: I personally reviewed and interpreted this ECG (s) as follows: Interpretation: Rate of 122, A. fib, no acute ST elevation or depression. QRS 91. QTc 445. HPI General Mode of arrival: EMS . Date/Time Provider Initiated Documentation: 11/09/19 08:11 . Limitations to Documentation: no limitations . Information obtained by: patient . HPI Narrative: Patient is a 74-year-old female with a history of morbid obesity, diabetes, atrial fibrillation, hypertension, rheumatoid arthritis and wheelchair-bound presents for abdominal pain, vomiting and diarrhea since yesterday. She states her abdominal pain is crampy and located in the upper and lower abdomen since yesterday. She vomited 2 times last night which was mainly clear. She had 2 episodes of watery brown diarrhea this morning. She denies any recent travel, recent hospital admission, known sick contacts, fever, chest pain, shortness of breath, cough or urinary symptoms. She denies any recent antibiotics. She states she took her regular medication this morning and last evening. Related Data Home Medications Medication Instructions Recorded Confirmed Co [id number] E-Fish Oil 1 cap PO HS 07/21/13 11/09/19 Livalo 2 mg PO DAILY 07/21/13 11/09/19 Pradaxa 150 mg PO BID 07/21/13 10/10/18 celecoxib [Celebrex] 200 mg PO DAILY 07/21/13 11/09/19 diazepam 2 mg PO Q6H PRN 07/21/13 11/09/19 duloxetine [Cymbalta] 60 mg PO DAILY 07/21/13 11/09/19 insulin aspart U-100 [Novolog 30 unit SQ BID 07/21/13 11/09/19 Flexpen U-100 Insulin] losartan 50 mg PO DAILY 07/21/13 11/09/19 metoprolol tartrate 100 mg PO BID 07/21/13 11/09/19 prednisone 5 mg PO DAILY 07/21/13 11/09/19 Victoza 2-Tree 1.8 mg SQ HS ml 12/23/16 11/09/19 Xolegel 45 gm TOPICAL PRN PRN script 12/23/16 11/09/19 lutein 20 mg PO DAILY 12/23/16 10/05/18 mecobalamin (vitamin B12) 1,000 mcg SUBLINGUAL DAILY 12/23/16 11/09/19 melatonin 10 mg PO HS 12/23/16 11/09/19 multivitamin [Daily Value] 1 ea PO DAILY 12/23/16 11/09/19 Calcium Magnesium 1 ea PO 10/31/17 Vitamin C 500 mg PO DAILY 10/31/17 11/09/19 cholecalciferol (vitamin D3) 1,000 unit PO DAILY 10/31/17 11/09/19 Darius Durand U-300 Insulin 90 unit SUBCUT QAM 10/10/18 11/09/19 bupropion HCl [Wellbutrin SR] 100 mg PO BID 10/10/18 11/09/19 diltiazem HCl 300 mg PO DAILY #30 cap 10/10/18 11/09/19 docusate sodium [Colace] 100 mg PO TID PRN PRN #30 cap 10/10/18 11/09/19 furosemide [Lasix] 20 mg PO DAILY #10 tab 10/10/18 11/09/19 loperamide 2 mg PO QLOOSE PRN #30 cap 10/10/18 11/09/19 prednisone 2.5 mg PO DAILY #3 tab 10/10/18 Previous Rx's Medication Instructions Recorded diltiazem HCl 300 mg PO DAILY #30 cap 10/10/18 docusate sodium [Colace] 100 mg PO TID PRN PRN #30 cap 10/10/18 furosemide [Lasix] 20 mg PO DAILY #10 tab 10/10/18 loperamide 2 mg PO QLOOSE PRN #30 cap 10/10/18 prednisone 2.5 mg PO DAILY #3 tab 10/10/18 Allergies Allergy/AdvReac Type Severity Reaction Status Date / Time atorvastatin AdvReac Intermediate leg cramps Unverified 11/09/19 08:52 lisinopril AdvReac Intermediate cough Unverified 11/09/19 08:52 General Stated Complaint: GenMedical REGAN: 3 Review of Systems All systems reviewed & are unremarkable except as noted in HPI and below Constitutional Constitutional: Reports as per HPI, Denies chills and Denies fever(s) Eyes Eyes: Denies blurry vision ENT Ears, Nose, Mouth, and Throat: Denies dizziness, Denies sore throat and Denies throat swelling Cardiovascular Cardiovascular: Denies chest pain and Denies dyspnea Respiratory Respiratory: Denies cough and Denies dyspnea Gastrointestinal Gastrointestinal: Reports abdominal pain, Reports diarrhea and Reports vomiting Genitourinary Genitourinary: Denies hematuria and Denies dysuria Musculoskeletal Musculoskeletal: Denies back pain and Denies numbness Integumentary/Breasts Skin/Breast: Denies lesions and Denies rash Neurologic Neurologic: Denies dizziness, Denies localized weakness and Denies numbness Allergic/Immunologic Allergic/Immunologic: Denies throat swelling [facility] Medical History (Updated 11/09/19 @ 11:58 by Lynne Caputo DO) Ambulatory dysfunction (Inactive) Atrial fibrillation (Chronic) Diabetes (Chronic) HTN (hypertension) (Chronic) Hx of hyperlipidemia (Acute) Obesity, morbid, BMI 40.0-49.9 (Inactive) Obstructive sleep apnea (Suspected) Pulmonary hypertension (Inactive) mild Rheumatoid arteritis (Acute) Rheumatoid arthritis (Inactive) Surgical History History of hysterectomy (Chronic) Hx of cholecystectomy (Chronic) Social History (Updated 10/05/18 @ 23:33 by Enrique Wood) Smoking/Tobacco Use Status: Former Tobacco Use Drug use: Never Additional Social history: Lives with her Valeriy on [facility] in [facility], moving to handicapped apartment They moved up here from [place] to be near their daughter. 2 sons in [facility]. 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 Exam Const General: cooperative Nutritional Appearance: obese morbidly obese Orientation: alert, awake and oriented x3 HENMT Head: normal to inspection Ears: hearing grossly normal bilaterally and external ears normal General nose exam: external nose normal Face and sinus: normal facial exam Mouth: mucous membranes dry Eyes General: appearance normal, both eyes and all related structures Eyelids: eyelids normal Pupils: PERRL EOM: EOM intact bilaterally Neck Neck: normal visual inspection Lymphatic: no lymphadenopathy noted Chest Chest: normal inspection of the chest Resp Effort & Inspection: normal respiratory effort and able to speak in complete sen tences Auscultation: clear to auscultation bilaterally Cardio Rate: regular rate Rhythm: regular rhythm GI Inspection: large pannus and obesity Palpation: soft, not firm, no guarding, no hepatosplenomegaly, no masses and tender in the epigastrum Auscultation: normal bowel sounds Abdomen image: 1. 10 x 10 cm area of induration and old ecchymosis on inferior aspect of large pannus c/w injection site for insulin. Skin General skin exam: no rashes or lesions noted Neuro General: patient alert and patient awake Cognition: normal cognition Speech: speech normal Gait: normal gait Motor: muscle tone normal throughout Sensory Exam: no sensory deficits noted Extrem General: normal to inspection, full ROM and capillary refill normal Psych Appearance: grossly normal Mental Status: mental status grossly normal Speech and Movement: speech and movement normal Affect: normal affect Thought Process: normal Course Vital Signs Vital signs: Vital Signs Temperature 97.9 F 11/09/19 08:00 Pulse 132 H 11/09/19 08:00 Respiratory Rate 28 H 11/09/19 08:00 Blood Pressure 124/97 H 11/09/19 08:00 Pulse Oximetry 94 L 11/09/19 08:00 Temperature 97.9 F 11/09/19 08:00 Temperature Source Skin 11/09/19 08:00 Pulse 132 H 11/09/19 08:00 Respiratory Rate 28 H 11/09/19 08:04 Respiratory Effort 11/09/19 08:04 Respiratory Depth Shallow 11/09/19 08:04 Respiratory Pattern Normal 11/09/19 08:04 Blood Pressure 124/97 H 11/09/19 08:00 Blood Pressure Position Supine 11/09/19 08:00 Pulse Oximetry 94 L 11/09/19 08:00 Oxygen Delivery Method Room Air 11/09/19 08:00 Oxygen Flow Rate 0 11/09/19 08:00
[2019-11-09] MEDS: Normal Saline 500 ML IV ×2 (08:39→14:03)
[2019-11-09] MEDS: Normal Saline Flush 10 ML SYR IVP ×2 (08:40→13:53)
[2019-11-09 09:04] LABS: Abs Immature Grans 0.03 k/cumm (0.0-0.09); Absolute Basophil Count 0.01 k/cumm (0.0-0.2); Absolute Eosinophil Count 0.02 k/cumm (0.0-0.7); Absolute Lymphocyte Count 0.35 k/cumm (1.2-3.4); Absolute Monocyte Count 0.09 k/cumm (0.11-0.7); Absolute Neutrophil Count 7.31 k/cumm (1.2-6.7); Basophils % 0.1; Eosinophils % 0.3; HCT 42.4 % (36.0-46.0); Immature Grans % 0.4 %; Lymphocytes % 4.5; Mean Corpuscular Hemoglobin 32.2 pg (27.0-33.0); Mean Corpuscular Volume 97.5 fL (80-95); Monocytes % 1.2; Neutrophils % 93.5; Platelet Count 219 x1000/uL (130-400); RBC 4.35 m/cumm (4.00-5.20); White Blood Cell Count 7.81 k/cumm (4.4-10.8)
[2019-11-09 09:09] LABS: Lactate 5.9 mmol/L (0.6-1.4)
[2019-11-09] MEDS: Ondansetron 4 MG/2 ML VIAL IVP (09:14)
[2019-11-09 09:21] LABS: INR 1.2 (0.9-1.1); PTT Activated 32.3 sec (21.0-31.4); Prothrombin Time 12.3 sec (9.3-11.0)
[2019-11-09 09:25] LABS: Lipase 46 U/L (73-393); Magnesium 1.4 mg/dL (1.8-2.4)
[2019-11-09 09:31] LABS: ALT 41 U/L (14-59); AST 44 U/L (15-37); Albumin 2.8 g/dL (3.4-5.0); Alkaline Phosphatase 127 U/L (46-116); Anion Gap 13.5 mmol/L (3-11); BUN 13 mg/dL (7-18); Bilirubin, Total 0.8 mg/dL (0.2-1.0); CO2 22.5 mmol/L (21.0-32.0); CREATININE 1.79 mg/dL (0.55-1.02); Calcium 9.2 mg/dL (8.5-10.1); Chloride 95 mmol/L (98-107); Estimated GFR 27.68 (mL/min/1.73m2); Glucose 439 mg/dL (74-106); Potassium 3.6 mmol/L (3.5-5.1); Sodium 131 mmol/L (136-145); Total Protein 6.8 g/dL (6.4-8.2)
[2019-11-09 09:32] LABS: Troponin I < 0.05 ng/mL (<0.06)
[2019-11-09 09:34] LABS: Bilirubin Negative (Negative); Blood Large (Negative); Clarity Sl Cloudy (Clear); Glucose 500 mg/dL (Negative); Ketones 15 mg/dL (Negative); Leukocyte Esterase Small (Negative); Nitrite Negative (Negative); Urobilinogen 0.2 EU/dL (Up TO 0.2); pH 5.5 (5-8)
[2019-11-09 10:03] LABS: RBC 20-50 HPF (0-2)
--- NOTE | 2019-11-09 10:03 | DI.CT_ITS ---
EXAM: CT CHEST/ABD/PEL WO CLINICAL HISTORY: upper abd pain, vomiting, diarrhea. TECHNIQUE: Imaging Protocol: Axial computed tomography images with coronal and sagittal reformatted images were created and reviewed CONTRAST MATERIAL: Noncontrast COMPARISON: CT RENAL COLIC WO CONTRAST from 01/16/2017 FINDINGS: CHEST: The exam is limited by patient motion. Tracheobronchial tree: Patent where visualized. Mediastinum and Clau: No dominant adenopathy or fluid collection. Pulmonary parenchyma: No consolidation or dominant measurable mass. No architectural distortion. Pleura: No effusion or pneumothorax. Lymph nodes: Within normal limits. Aorta: Thoracic portion non-dilated. Heart: Normal size Bones: Degenerative changes ABDOMEN: Exam is limited by patient motion. Liver: Enlarged and fatty. No measurable mass. Gallbladder and biliary tract: Status post cholecystectomy. No biliary dilatation. Pancreas: Normal density, no abnormal calcifications or inflammatory process. Spleen: Normal. Kidneys: Not well evaluated due to motion. There is a stone in the right ureteropelvic junction krystal uring 8 millimeters, causing moderate hydronephrosis. Additional calcifications are seen in the righ t renal pelvis as well as upper and lower pole. A few tiny nonobstructing stones are seen in the lef t kidney. Adrenal glands: No masses seen. Aorta: Abdominal portion non-dilated. Lymph nodes: Within normal limits. PELVIS: Bladder: Nearly empty., No gross wall thickening. Bowel: No obstruction or bowel wall thickening. Mild sigmoid diverticulosis. Peritoneal cavity: No ascites, collection or mesenteric inflammatory response. Bones: Degenerative changes. Reproductive organs: Status post hysterectomy IMPRESSION: Moderate right hydronephrosis secondary to an 8 millimeter stone in the ureteropelvic junction. Ronny tional bilateral renal calculi. RADIATION DOSE DELIVERED: Total DLP DATA REPOSITORY: All CT scans at this facility are submitted to the National Radiology Data Registry (NRDR) Dose Index Registry (DIR) with the [employer] ([employer]). RADIATION OPTIMIZATION: All CT scans at this facility use at least one of these dose optimization te chniques: automated exposure control; mA and/or kV adjustment per patient size (includes targeted exa ms where dose is matched to clinical indication); or iterative reconstruction.
[2019-11-09 10:04] LABS: Bacteria Few HPF (Negative); C & S Indicated? Yes; Casts Negative LPF (Negative); Crystals Negative HPF (Negative); Epithelial Cells Few HPF (Negative); Mucus Negative (Negative)
[2019-11-09] MEDS: Insulin REGULAR-Human 100 UNITS/ML UNIT 7 UNITS IV (11:03)
[2019-11-09] MEDS: dilTIAZem 25 MG/5 ML VIAL (11:42)
[2019-11-09] MEDS: cefTRIAXone 1 GM/50 ML BAG IVPB (11:53)
[2019-11-09] MEDS: dilTIAZem 125 MG in Normal Saline 100 ML IV (12:38)
[2019-11-09 13:45] LABS: Troponin I < 0.05 ng/mL (<0.06)
[2019-11-09] MEDS: Hydrocortisone SOD SUC. 100 MG VIAL IVP (13:53)
[2019-11-09] MEDS: INSULIN REGULAR IN 0.9 % NACL 100 UNIT/100 ML BAG 15 UNIT IV (13:54)
[2019-11-09 13:55] LABS: Procalcitonin 23.6 ng/mL
[2019-11-09 14:11] LABS: TSH (W/Ref FT4) 1.87 uIU/mL (0.36-3.74)
--- NOTE | 2019-11-09 14:37 | W.PM.HP.N ---
Date of service: 11/09/19 Time of Service: 14:37 Assessment and Plan Assessment and plan (1) Sepsis: Status: Acute Assessment and plan: Supportive therapy with norepinephrine drip to maintain mean arterial pressure greater than or equal to 65. Continued IV fluids along with broad-spectrum antibiotics (meropenem) for UTI w/ sepsis secondary to obstructive uropathy from right UP stone. Given that she is chronically on prednisone for rheumatoid arthritis we will give her stress dose hydrocortisone. Try to control her atrial fibrillation with IV diltiazem. We will continue to monitor serial troponin levels and get an echocardiogram in the morning. For now we will treat her with heparin drip and discontinue her Pradaxa in order to allow for expected cystoscopy and ureteral stenting to take place in the next 1 to 2 days. critical care time spent stabilizing the patient was 90 minutes outside of time spent placing CVP line Qualifiers: Acute renal failure type: unspecified Sepsis acute organ dysfunction status: with acute organ dysfunction Sepsis type: sepsis due to unspecified organism Severe sepsis acute organ dysfunction type: acute renal failure (2) UTI (urinary tract infection): Status: Acute Assessment and plan: Broad-spectrum antibiotics with meropenem pending results of her urine and blood cultures. Qualifiers: Hematuria presence: with hematuria Urinary tract infection type: site unspecified Qualified Code(s): N39.0 - Urinary tract infection, site not specified; R31.9 - Hematuria, unspecified (3) Obstructive uropathy: Status: Acute Assessment and plan: We will give her Flomax to try to help her pass her ureteral stone. If she is unable to pass her ureteral stone then she will require cystoscopy ureteroscopy and stenting. Dr. Fernandez has been consulted and has seen the patient in the intensive care unit and will follow up with her in the morning. (4) Ureterolithiasis: Status: Acute Assessment and plan: As above (5) Acute renal failure: Status: Acute Assessment and plan: IV fluid hydration and management of her hemodynamics to maintain a mean arterial pressure greater than or equal to 65. Will monitor urine output with hourly Qualifiers: Acute renal failure type: unspecified Qualified Code(s): N17.9 - Acute kidney failure, unspecified (6) Atrial fibrillation with RVR: Status: Acute Assessment and plan: IV diltiazem once her blood pressure stabilized we will put her back on oral diltiazem and metoprolol. (7) Lactic acidosis: Status: Acute Assessment and plan: IV fluid hydration and optimization of her hemodynamics (8) Diarrhea: Status: Acute Assessment and plan: Stool cultures and stool for C. difficile are pending but no further diarrhea has occurred since admission Qualifiers: Diarrhea type: presumed infectious Qualified Code(s): R19.7 - Diarrhea, unspecified (9) IDDM (insulin dependent diabetes mellitus): Status: Chronic Assessment and plan: Will use an insulin drip and then transition over to her basal bolus therapy once she is hemodynamically stable (10) Hyperglycemia due to type 1 diabetes mellitus: Status: Acute Assessment and plan: As above (11) Steroid dependent: Status: Chronic Assessment and plan: stress dose hydrocortisone as above (12) DVT prophylaxis: Status: Acute Assessment and plan: heparin drip as above History of Present Illness History of Present Illness Chief Complaint: Nausea vomiting, diarrhea, dizziness Narrative: 74-year-old female with a history of type 2 diabetes mellitus requiring insulin along with a history of nephrolithiasis and chronic atrial fibrillation, rheumatoid arthritis (on chronic prednisone 5 mg daily) presents to the emergency department with acute onset of nausea and vomiting that started yesterday followed by a bout of diarrhea this morning. No associated abdominal pain. She complains of generalized weakness and dizziness and palpitations but no chest pain and no dyspnea. She denies any dysuria or hematuria. No melena or hematochezia. Evaluation the emergency department found her to be tachycardic in rapid atrial fibrillation with hypotension and laboratory work-up demonstrated acute renal insufficiency with a creatinine 1.79 and elevated blood lactate of 5.9 and a glucose of 439. Troponin levels were less than 0.05?2 sets. Procalcitonin level is elevated 23.6. And her urinalysis is suspicious for UTI. Noncontrast CT scan of her abdomen pelvis was performed. calcifications were seen in the right renal pelvis as well as the upper and lower pole and a few tiny nonobstructing stones were seen in the left kidney. Bladder was nearly empty with no gross wall thickening. She has mild sigmoid diverticulosis with no diverticulitis. There is no peritoneal ascites. Liver showed fatty liver changes. She is status post cholecystectomy with no biliary dilatation and normal-appearing pancreas and spleen. Patient was given 2 L of fluids and was started on diltiazem drip after being given 10 mg of diltiazem IV push. Because she required the diltiazem drip drip and still had some hypotension she was put on norepinephrine drip and admitted to the intensive care unit. Blood and urine cultures were obtained and she was started on Rocephin 1 g IV in the emergency department but have since switched that to ertapenem 1 g IV every [address] Andres Fernandez, urologist has been consulted and saw the patient. At this time regarding get her medically stabilized and he will then plan to take her to the OR for cystoscopy ureteroscopy and stent. Because of the ongoing hypotension and requirement for norepinephrine the patient required a central line to be placed. Please see my separate operative note regarding the central line placement. Review of Systems All systems reviewed & are unremarkable except as noted in HPI and below Constitutional Constitutional: Reports as per HPI ENT Ears, Nose, Mouth, and Throat: Reports system reviewed and no additional complaints, except as documented Cardiovascular Cardiovascular: Reports system reviewed and no additional complaints, except as documented Respiratory Respiratory: Reports system reviewed and no additional complaints, except as documented Gastrointestinal Gastrointestinal: Reports as per HPI Genitourinary Genitourinary: Reports system reviewed and no additional complaints, except as documented Integumentary/Breasts Skin/Breast: Reports system reviewed and no additional complaints, except as documented Neurologic Neurologic: Reports system reviewed and no additional complaints, except as documented Endocrine Endocrine: Reports system reviewed and no additional complaints, except as documented Hematologic/Lymphatic Hematologic/Lymphatic: Reports system reviewed and no additional complaints, except as documented Allergic/Immunologic Allergic/Immunologic: Reports system reviewed and no additional complaints, except as documented [facility] Medical History Ambulatory dysfunction (Inactive) Atrial fibrillation (Chronic) Diabetes (Chronic) HTN (hypertension) (Chronic) Hx of hyperlipidemia (Acute) Obesity, morbid, BMI 40.0-49.9 (Inactive) Obstructive sleep apnea (Suspected) Pulmonary hypertension (Inactive) mild Rheumatoid arteritis (Acute) Rheumatoid arthritis (Inactive) Surgical History History of hysterectomy (Chronic) Hx of cholecystectomy (Chronic) Social History Smoking/Tobacco Use Status: Former Tobacco Use Drug use: Never Additional Social history: Lives with her Valeriy on [facility] in [place], moving to handicapped apartment They moved up here from [place] to be near their daughter. 2 sons in [place] area. 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 Meds Home Medications and Allergies Home Medications Medication Instructions Recorded Confirmed Type Livalo 1 mg PO DAILY 07/21/13 11/09/19 History Pradaxa 150 mg PO BID 07/21/13 10/10/18 History celecoxib [Celebrex] 200 mg PO DAILY 07/21/13 11/09/19 History diazepam 2 mg PO DAILY PRN 07/21/13 11/09/19 History duloxetine [Cymbalta] 60 mg PO DAILY 07/21/13 11/09/19 History losartan 50 mg PO DAILY 07/21/13 11/09/19 History prednisone 5 mg PO DAILY 07/21/13 11/09/19 History Victoza 2-Tree 1.8 mg SQ HS ml 12/23/16 11/09/19 History lutein 20 mg PO DAILY 12/23/16 10/05/18 History mecobalamin (vitamin B12) 1,000 mcg SUBLINGUAL DAILY 12/23/16 11/09/19 History melatonin 10 mg PO HS 12/23/16 11/09/19 History multivitamin [Daily Value] 1 ea PO DAILY 12/23/16 11/09/19 History Vitamin C 1,000 mg PO DAILY 10/31/17 11/09/19 History cholecalciferol (vitamin D3) 5,000 unit PO DAILY 10/31/17 11/09/19 History Darius Durand U-300 Insulin 90 unit SUBCUT QAM 10/10/18 11/09/19 History bupropion HCl [Wellbutrin SR] 100 mg PO BID 10/10/18 11/09/19 History diltiazem HCl 300 mg PO DAILY #30 cap 10/10/18 11/09/19 Rx docusate sodium [Colace] 100 mg PO TID PRN PRN #30 cap 10/10/18 11/09/19 Rx furosemide [Lasix] 20 mg PO DAILY #10 tab 10/10/18 11/09/19 Rx loperamide 2 mg PO QLOOSE PRN #30 cap 10/10/18 11/09/19 Rx calcium carbonate-vitamin D3 1 cap PO DAILY 11/09/19 11/09/19 History [Calcium 600 + D(3)] cetirizine 10 mg PO DAILY 11/09/19 11/09/19 History coenzyme Q10 100 mg PO DAILY 11/09/19 11/09/19 History colesevelam 625 mg PO BID 11/09/19 11/09/19 History insulin lispro [Humalog KwikPen 30 unit SUBCUT AC 11/09/19 11/09/19 History Insulin] metoprolol succinate 150 mg PO DAILY 11/09/19 11/09/19 History vitamin B complex 1 tab PO DAILY 11/09/19 11/09/19 History Allergies Allergy/AdvReac Type Severity Reaction Status Date / Time atorvastatin AdvReac Intermediate leg cramps Unverified 11/09/19 08:52 lisinopril AdvReac Intermediate cough Unverified 11/09/19 08:52 Exam Narrative Exam Narrative: Morbidly obese female who is alert and oriented she is complaining of some lightheadedness but no chest pain no dyspnea. HEENT is remarkable for dry mucous membranes. Neck is obese short neck with normal carotid pulses although they are tachycardic and irregular. No JVD. Lungs are clear to auscultation. Heart is irregularly irregular and tachycardic with no appreciable murmur or rub. Abdomen is obese soft and nontender normal active bowel sounds. Extremities without peripheral cyanosis or edema. Feet are cool but not cyanotic she has palpable but diminished pedal pulses. Neurologic exam is grossly intact no focal motor deficits no focal sensory deficits to light touch. No facial asymmetry no dysarthric speech cranial nerves grossly intact Results Labs Result diagrams: 11/09/19 08:55 11/10/19 06:07 Labs: Laboratory Results - last 24 hr 11/09/19 11/09/19 11/09/19 08:55 08:55 08:55 WBC RBC Hgb Hct MCV MCH MCHC RDW Plt Count MPV Immature Gran % Neutrophils % Lymphocytes % Monocytes % Eosinophils % Basophils % Absolute Neutrophils Absolute Lymphocytes Absolute Monocytes Absolute Eosinophils Absolute Basophils PT 12.3 H INR 1.2 H APTT 32.3 H Sodium Potassium Chloride Carbon Dioxide Anion Gap BUN Creatinine Estimated GFR/1.73 m2 Glucose Lactate 5.9 H* Calcium Magnesium 1.4 L Total Bilirubin AST ALT Alkaline Phosphatase Troponin I Total Protein Albumin Lipase 46 Procalcitonin TSH Urine Color Urine Clarity Urine pH Ur Specific [place] Urine Protein Urine Ketones Urine Blood Urine Nitrite Urine Bilirubin Urine Urobilinogen Ur Leukocyte Esterase Urine RBC Urine WBC Ur Epithelial Cells Urine Crystals Urine Bacteria Urine Casts Urine Mucus Ur Culture Indicated? Urine Glucose 11/09/19 11/09/19 11/09/19 08:55 08:55 08:55 WBC 7.81 RBC 4.35 Hgb 14.0 Hct 42.4 MCV 97.5 H MCH 32.2 MCHC 33.0 RDW 14.0 Plt Count 219 MPV 10.0 Immature Gran % 0.4 Neutrophils % 93.5 Lymphocytes % 4.5 Monocytes % 1.2 Eosinophils % 0.3 Basophils % 0.1 Absolute Neutrophils 7.31 H Absolute Lymphocytes 0.35 L Absolute Monocytes 0.09 L Absolute Eosinophils 0.02 Absolute Basophils 0.01 PT INR APTT Sodium 131 L Potassium 3.6 Chloride 95 L Carbon Dioxide 22.5 Anion Gap 13.5 H BUN 13 Creatinine 1.79 H Estimated GFR/1.73 m2 27.68 Glucose 439 H Lactate Calcium 9.2 Magnesium Total Bilirubin 0.8 AST 44 H ALT 41 Alkaline Phosphatase 127 H Troponin I < 0.05 Total Protein 6.8 Albumin 2.8 L Lipase Procalcitonin TSH 1.87 Urine Color Urine Clarity Urine pH Ur Specific [place] Urine Protein Urine Ketones Urine Blood Urine Nitrite Urine Bilirubin Urine Urobilinogen Ur Leukocyte Esterase Urine RBC Urine WBC Ur Epithelial Cells Urine Crystals Urine Bacteria Urine Casts Urine Mucus Ur Culture Indicated? Urine Glucose 11/09/19 11/09/19 11/09/19 09:27 13:00 13:00 WBC RBC Hgb Hct MCV MCH MCHC RDW Plt Count MPV Immature Gran % Neutrophils % Lymphocytes % Monocytes % Eosinophils % Basophils % Absolute Neutrophils Absolute Lymphocytes Absolute Monocytes Absolute Eosinophils Absolute Basophils PT INR APTT Sodium Potassium Chloride Carbon Dioxide Anion Gap BUN Creatinine Estimated GFR/1.73 m2 Glucose Lactate Calcium Magnesium Total Bilirubin AST ALT Alkaline Phosphatase Troponin I < 0.05 Total Protein Albumin Lipase Procalcitonin 23.6 TSH Urine Color Yellow Urine Clarity Sl cloudy Urine pH 5.5 Ur Specific [place] 1.020 Urine Protein Trace H Urine Ketones 15 H Urine Blood Large H Urine Nitrite Negative Urine Bilirubin Negative Urine Urobilinogen 0.2 Ur Leukocyte Esterase Small H Urine RBC 20-50 H Urine WBC 10-20 H Ur Epithelial Cells Few Urine Crystals Negative Urine Bacteria Few Urine Casts Negative Urine Mucus Negative Ur Culture Indicated? Yes Urine Glucose 500 H 11/09/19 13:00 WBC RBC Hgb Hct MCV MCH MCHC RDW Plt Count MPV Immature Gran % Neutrophils % Lymphocytes % Monocytes % Eosinophils % Basophils % Absolute Neutrophils Absolute Lymphocytes Absolute Monocytes Absolute Eosinophils Absolute Basophils PT INR APTT Sodium Potassium Chloride Carbon Dioxide Anion Gap BUN Creatinine Estimated GFR/1.73 m2 Glucose Lactate 5.0 H* Calcium Magnesium Total Bilirubin AST ALT Alkaline Phosphatase Troponin I Total Protein Albumin Lipase Procalcitonin TSH Urine Color Urine Clarity Urine pH Ur Specific [place] Urine Protein Urine Ketones Urine Blood Urine Nitrite Urine Bilirubin Urine Urobilinogen Ur Leukocyte Esterase Urine RBC Urine WBC Ur Epithelial Cells Urine Crystals Urine Bacteria Urine Casts Urine Mucus Ur Culture Indicated? Urine Glucose Last Vital Signs Temp 36.6 C 11/09/19 08:00 Pulse 106 H 11/09/19 13:01 Resp 24 11/09/19 13:01 BP 102/59 L 11/09/19 13:01 Pulse Ox 99 11/09/19 11:01 COVID-19 Screening Have you,or household,traveled outside [place] in last 14 days?: No Had IN PERSON contact w/suspected or confirmed C-19 person: No
[2019-11-09] MEDS: Normal Saline 1,000 ML 100 ML IV (15:01)
[2019-11-09] MEDS: MAGNESIUM SULFATE 4 GM/100 ML BAG IVPB (15:01)
--- NOTE | 2019-11-09 15:57 | UCONE_ITS ---
Date of service: 11/09/19 Time of Service: 15:57 Assessment and Plan Assessment and plan (1) Ureterolithiasis: Status: Acute Assessment and plan: Her urine does not look overly bad, but we are concerned that she may be harboring an infection up in the right kidney behind the ureteral stone. We may need to place a ureteral stent to relieve any obstruction and to allow her sepsis to improve more quickly. We will reassess her tomorrow to see if she is stable enough for consideration of a stent placement. History of Present Illness History of Present Illness Chief Complaint: Right ureteral stone Narrative: This is a 74-year-old woman who has a known history of bilateral kidney stones. She has occasionally had findings of hydronephrosis even without the presence/documentation of a ureteral stone. She presented to the hospital today with abdominal pain that began about 3 days ago. Her lactate is quite elevated. Her CT scan demonstrates 1 of the right sided kidney stones has migrated into the right proximal ureter and she has hydronephrosis. [facility] Medical History Ambulatory dysfunction (Inactive) Atrial fibrillation (Chronic) Diabetes (Chronic) HTN (hypertension) (Chronic) Hx of hyperlipidemia (Acute) Obesity, morbid, BMI 40.0-49.9 (Inactive) Obstructive sleep apnea (Suspected) Pulmonary hypertension (Inactive) mild Rheumatoid arteritis (Acute) Rheumatoid arthritis (Inactive) Surgical History History of hysterectomy (Chronic) Hx of cholecystectomy (Chronic) Social History Smoking/Tobacco Use Status: Former Tobacco Use Drug use: Never Additional Social history: Lives with her Valeriy on [facility] in [facility], moving to handicapped apartment They moved up here from [place] to be near their daughter. 2 sons in [facility]. 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 Exam Narrative Exam Narrative: She is an obese woman seen in the intensive care unit. Her vital signs are documented elsewhere She is awake and alert I reviewed her CT scan on the PACS system. She has some nonobstructing stones bilaterally but there is a right proximal ureteral stone with hydronephrosis. The stone is just below the level of the ureteropelvic junction. Results Last Vital Signs Temp 36.6 C 11/09/19 08:00 Pulse 106 H 11/09/19 13:01 Resp 24 11/09/19 13:01 BP 102/59 L 11/09/19 13:01 Pulse Ox 99 11/09/19 11:01 Labs Result diagrams: 11/12/19 06:10 11/12/19 05:35 Labs: Laboratory Results - last 24 hr 11/09/19 11/09/19 11/09/19 08:55 08:55 08:55 WBC RBC Hgb Hct MCV MCH MCHC RDW Plt Count MPV Immature Gran % Neutrophils % Lymphocytes % Monocytes % Eosinophils % Basophils % Absolute Neutrophils Absolute Lymphocytes Absolute Monocytes Absolute Eosinophils Absolute Basophils PT 12.3 H INR 1.2 H APTT 32.3 H Sodium Potassium Chloride Carbon Dioxide Anion Gap BUN Creatinine Estimated GFR/1.73 m2 Glucose Lactate 5.9 H* Calcium Magnesium 1.4 L Total Bilirubin AST ALT Alkaline Phosphatase Troponin I Total Protein Albumin Lipase 46 Procalcitonin TSH Urine Color Urine Clarity Urine pH Ur Specific [place] Urine Protein Urine Ketones Urine Blood Urine Nitrite Urine Bilirubin Urine Urobilinogen Ur Leukocyte Esterase Urine RBC Urine WBC Ur Epithelial Cells Urine Crystals Urine Bacteria Urine Casts Urine Mucus Ur Culture Indicated? Urine Glucose 11/09/19 11/09/19 11/09/19 08:55 08:55 08:55 WBC 7.81 RBC 4.35 Hgb 14.0 Hct 42.4 MCV 97.5 H MCH 32.2 MCHC 33.0 RDW 14.0 Plt Count 219 MPV 10.0 Immature Gran % 0.4 Neutrophils % 93.5 Lymphocytes % 4.5 Monocytes % 1.2 Eosinophils % 0.3 Basophils % 0.1 Absolute Neutrophils 7.31 H Absolute Lymphocytes 0.35 L Absolute Monocytes 0.09 L Absolute Eosinophils 0.02 Absolute Basophils 0.01 PT INR APTT Sodium 131 L Potassium 3.6 Chloride 95 L Carbon Dioxide 22.5 Anion Gap 13.5 H BUN 13 Creatinine 1.79 H Estimated GFR/1.73 m2 27.68 Glucose 439 H Lactate Calcium 9.2 Magnesium Total Bilirubin 0.8 AST 44 H ALT 41 Alkaline Phosphatase 127 H Troponin I < 0.05 Total Protein 6.8 Albumin 2.8 L Lipase Procalcitonin TSH 1.87 Urine Color Urine Clarity Urine pH Ur Specific [place] Urine Protein Urine Ketones Urine Blood Urine Nitrite Urine Bilirubin Urine Urobilinogen Ur Leukocyte Esterase Urine RBC Urine WBC Ur Epithelial Cells Urine Crystals Urine Bacteria Urine Casts Urine Mucus Ur Culture Indicated? Urine Glucose 11/09/19 11/09/19 11/09/19 09:27 13:00 13:00 WBC RBC Hgb Hct MCV MCH MCHC RDW Plt Count MPV Immature Gran % Neutrophils % Lymphocytes % Monocytes % Eosinophils % Basophils % Absolute Neutrophils Absolute Lymphocytes Absolute Monocytes Absolute Eosinophils Absolute Basophils PT INR APTT Sodium Potassium Chloride Carbon Dioxide Anion Gap BUN Creatinine Estimated GFR/1.73 m2 Glucose Lactate Calcium Magnesium Total Bilirubin AST ALT Alkaline Phosphatase Troponin I < 0.05 Total Protein Albumin Lipase Procalcitonin 23.6 TSH Urine Color Yellow Urine Clarity Sl cloudy Urine pH 5.5 Ur Specific [place] 1.020 Urine Protein Trace H Urine Ketones 15 H Urine Blood Large H Urine Nitrite Negative Urine Bilirubin Negative Urine Urobilinogen 0.2 Ur Leukocyte Esterase Small H Urine RBC 20-50 H Urine WBC 10-20 H Ur Epithelial Cells Few Urine Crystals Negative Urine Bacteria Few Urine Casts Negative Urine Mucus Negative Ur Culture Indicated? Yes Urine Glucose 500 H 11/09/19 13:00 WBC RBC Hgb Hct MCV MCH MCHC RDW Plt Count MPV Immature Gran % Neutrophils % Lymphocytes % Monocytes % Eosinophils % Basophils % Absolute Neutrophils Absolute Lymphocytes Absolute Monocytes Absolute Eosinophils Absolute Basophils PT INR APTT Sodium Potassium Chloride Carbon Dioxide Anion Gap BUN Creatinine Estimated GFR/1.73 m2 Glucose Lactate 5.0 H* Calcium Magnesium Total Bilirubin AST ALT Alkaline Phosphatase Troponin I Total Protein Albumin Lipase Procalcitonin TSH Urine Color Urine Clarity Urine pH Ur Specific [place] Urine Protein Urine Ketones Urine Blood Urine Nitrite Urine Bilirubin Urine Urobilinogen Ur Leukocyte Esterase Urine RBC Urine WBC Ur Epithelial Cells Urine Crystals Urine Bacteria Urine Casts Urine Mucus Ur Culture Indicated? Urine Glucose
--- NOTE | 2019-11-09 16:15 | DI.RAD_ITS ---
EXAM: XR PORTABLE CHEST AP POST LINE CLINICAL HISTORY: central line TECHNIQUE: 2D digital imaging was performed. COMPARISON: CR XR PORTABLE CHEST AP from 10/07/2018 FINDINGS: A right internal jugular central line has been placed. The tip projects in the superior vena cava. No pneumothorax is seen. The heart is enlarged. No infiltrate or effusion is seen. IMPRESSION: Satisfactory placement of central line.
--- NOTE | 2019-11-09 16:33 | W.PM.OP ---
Date of service: 11/09/19 Time of Service: 16:34 Operative Note Operative Note DATE OF PROCEDURE: 11/09/19 PRE-OP DIAGNOSIS: Sepsis POST-OP DIAGNOSIS: same PROCEDURE: Right internal jugular vein triple-lumen 7 Ukrainian 20 cm CVC catheter placement SURGEON: Rey Rudolph ANESTHESIA: local ESTIMATED BLOOD LOSS: 0 COMPLICATIONS: None Patient was transported to: no change Patient's condition: stable Indications: Sepsis with hypotension and acute renal insufficiency in the setting of rapid atrial fibrillation and UTI Procedure Description: After obtaining informed consent from the patient having discussed indications as well as potential complications of above procedure the patient was prepped in sterile fashion over the right internal jugular area between the bellies of the sternocleidomastoid muscle on the right side. This was done after I confirmed that there was no thrombus in the internal jugular vein by [id number] ultrasound. After having donned sterile gloves gown and mask as well as her bonnet I used an Arrow guard Blue plus pressure injectable multilumen CVC kit along with the enclosed contents to prep the skin over the right internal jugular vein and apply a sterile covering of her face neck and chest. Having identified the internal jugular vein and carotid artery by [id number] ultrasound I injected the skin with 5 mL's of 1% lidocaine. I attempted cannulation of the internal jugular vein under ultrasound guidance. However I obtain dark nonpulsatile blood prior to seeing the needle enter into the internal jugular vein therefore I withdrew the needle. I suspect that this was from the external jugular vein. I then repositioned the ultrasound probe and my needle and successfully cannulated the internal jugular vein watch and the needle passed into the internal jugular vein and after having obtained dark nonpulsatile blood I then threaded a J-tip spring wire through the [employer] syringe and needle and then remove the needle from the internal jugular vein. I then used my ultrasound confirming that the guidewire was within the internal jugular vein and use the enclosed scalpel from the kit to make a small stab incision to the skin. I then used the enclosed vessel dilator to make the incision large enough to pass a triple-lumen catheter. Triple-lumen catheter was threaded over the guidewire per Seldinger technique to a distance of 15 cm and the J-wire was removed. Dark red blood was drawn back through the syringe and each of the ports were then flushed with sterile saline. Sterile dressing with a bio.was applied after I sutured the triple-lumen catheter to the skin using the enclosed plastic catheter clamp. I used [id number] ultrasound to assess pleural sliding and confirmed that there was no pneumothorax. Stat portable chest x-ray is pending at this time. Patient tolerated the procedure well with no obvious complications.
--- NOTE | 2019-11-09 16:42 | RESPIRATORY ---
RT spoke with patient concerning the Obstructive Sleep apnea that's listed in her medical history. Patient stated she does not have BUCK and her doctor is crazy. Currently, patient is on 2L NC and does not have home oxygen.
[2019-11-09] MEDS: MEROPENEM 1 GM in Normal Saline 100 ML IVPB (16:52)
--- NOTE | 2019-11-09 16:57 | DI.VRAD_ITS ---
PROCEDURE INFORMATION: Exam: XR Chest, 1 View Exam date and time: 11/09/2019 4:36 PM Age: 74 years old Clinical indication: Other: Central line TECHNIQUE: Imaging protocol: XR of the chest Views: 1 view. COMPARISON: CT CHEST/ABD/PEL WO 11/09/2019 9:58 AM FINDINGS: Tubes, catheters and devices: Right central line ends in the SVC. Lungs: Unremarkable. No consolidation. Pleural space: Unremarkable. No pleural effusion. No pneumothorax. Heart/Mediastinum: Cardiomegaly. Bones/joints: Degenerative changes in the spine. IMPRESSION: 1. Cardiomegaly. 2. Right central line ends in the SVC. Dictated and Authenticated by: Sonya Bowen MD. Ordering:[facility] Klaudia Le MD
[2019-11-09] MEDS: Normal Saline-STERILE FIELD 0.9% 10 ML SYR ×2 (17:03→17:04)
[2019-11-09 18:02] LABS: Troponin I < 0.05 ng/mL (<0.06)
[2019-11-09] MEDS: POTASSIUM CHLORIDE/0.9% NACL 1,000 ML 80 MEQ IV (18:47)
[2019-11-09] MEDS: INSULIN REGULAR IN 0.9 % NACL 100 UNIT/100 ML BAG 14 UNIT IV (20:18)
[2019-11-09] MEDS: Hydrocortisone SOD SUC. 100 MG VIAL 50 MG IVP (20:21)
[2019-11-09] MEDS: buPROPion-CR 100 MG TABCR PO (20:21)
[2019-11-09] MEDS: POTASSIUM CHLORIDE/D5-0.9%NACL 1,000 ML 100 MEQ IV (22:46)
[2019-11-10] VITALS (38 sets, daily range): BP systolic 99–138; BP diastolic 57–85; PULSE 85–132; RESP 15–26; TEMP 36.7–37.5; O2SAT 91–96
[2019-11-10 01:25] LABS: PTT Activated 150.5 sec (21.0-31.4)
[2019-11-10] MEDS: Hydrocortisone SOD SUC. 100 MG VIAL 50 MG IVP ×3 (02:19→18:03)
[2019-11-10] MEDS: INSULIN REGULAR IN 0.9 % NACL 100 UNIT/100 ML BAG 12 UNIT IV (03:45)
[2019-11-10] MEDS: MEROPENEM 1 GM in Normal Saline 100 ML IVPB ×2 (03:45→16:54)
[2019-11-10] MEDS: diazePAM 2 MG TAB PO ×2 (04:52→20:27)
[2019-11-10] MEDS: Acetaminophen 325 MG TAB PO ×2 (04:52→20:28)
[2019-11-10 06:21] LABS: Lactate 1.5 mmol/L (0.6-1.4)
[2019-11-10 06:40] LABS: Anion Gap 8.9 mmol/L (3-11); BUN 20 mg/dL (7-18); CO2 24.1 mmol/L (21.0-32.0); CREATININE 1.65 mg/dL (0.55-1.02); Calcium 7.9 mg/dL (8.5-10.1); Chloride 98 mmol/L (98-107); Estimated GFR 30.41 (mL/min/1.73m2); Glucose 107 mg/dL (74-106); Potassium 3.3 mmol/L (3.5-5.1); Sodium 131 mmol/L (136-145)
[2019-11-10 06:42] LABS: PTT Activated 70.8 sec (21.0-31.4)
[2019-11-10] MEDS: dilTIAZem 125 MG in Normal Saline 100 ML 15 MG IV (08:05)
[2019-11-10 08:21] LABS: COVID-19 RT-PCR UVMMC Result Negative (Negative)
[2019-11-10] MEDS: buPROPion-CR 100 MG TABCR PO ×2 (09:45→20:27)
[2019-11-10] MEDS: Metoprolol 50 MG TAB PO ×3 (09:46→23:04)
[2019-11-10] MEDS: DULoxetine 30 MG CAP 60 MG PO (09:46)
[2019-11-10] MEDS: Multivitamin TAB 1 TAB PO (09:46)
[2019-11-10] MEDS: Tamsulosin 0.4 MG CAPCR PO (09:46)
[2019-11-10] MEDS: dilTIAZem 60 MG TAB PO ×3 (09:46→20:27)
[2019-11-10] MEDS: Normal Saline Flush 10 ML SYR IVP ×2 (09:47→14:17)
--- NOTE | 2019-11-10 09:59 | PGE_ITS ---
Date of Service Date of service: 11/10/19 Time of Service: 09:59 Assessment and Plan Assessment and plan (1) Sepsis: Status: Acute Assessment and plan: Patient is showing significant improvement in that her blood pressure stabilized she is now off the norepinephrine drip her creatinine is improving and her heart rate is under better control today. I will continue with the meropenem pending the results of her urine and blood cultures. Unfortunately appears that the ER never obtain blood cultures on her in spite of the fact that she presented with a septic picture with an elevated lactate and procalcitonin level. Unfortunately I also missed this on admission. We will get blood cultures today although I doubt they will grow anything. I will continue the meropenem and modify her antibiotic coverage once we get the results and sensitivity on her urine culture. Continue supportive care with IV fluids as well as stress dose corticosteroids and antibiotics. We will plan for the patient to go to the OR tomorrow for cystoscopy ureteroscopy and ureteral stenting. Qualifiers: Sepsis type: sepsis due to unspecified organism Sepsis acute organ dysfunction status: with acute organ dysfunction Severe sepsis acute organ dysfunction type: acute renal failure Acute renal failure type: unspecified (2) UTI (urinary tract infection): Status: Acute Assessment and plan: Broad-spectrum antibiotics with meropenem pending results of her urine and blood cultures. Qualifiers: Urinary tract infection type: site unspecified Hematuria presence: with hematuria Qualified Code(s): N39.0 - Urinary tract infection, site not specified; R31.9 - Hematuria, unspecified (3) Obstructive uropathy: Status: Acute Assessment and plan: Antibiotics as above. Continue with Flomax. Will strain all urine for stone analysis. Plan for the OR tomorrow morning as above. (4) Ureterolithiasis: Status: Acute Assessment and plan: As above (5) Acute renal failure: Status: Acute Assessment and plan: Supportive care as above. Continue to monitor daily BMP and urine output Qualifiers: Acute renal failure type: unspecified Qualified Code(s): N17.9 - Acute kidney failure, unspecified (6) Atrial fibrillation with RVR: Status: Acute Assessment and plan: I will transition over to short acting diltiazem and Lopressor today and wean her off her diltiazem drip. Continue heparin drip in place of her Pradaxa. After she has her surgery we can discontinue the heparin drip and put her on her oral direct anticoagulant. I will asked that they stop the heparin drip tomorrow morning at least 6 hours prior to her surgery (7) Lactic acidosis: Status: Resolved Assessment and plan: IV fluid hydration and optimization of her hem odynamics (8) Diarrhea: Status: Acute Assessment and plan: C. difficile screen was negative. Stool cultures are pending. No evidence of diarrhea since she has been admitted to the hospital. Qualifiers: Diarrhea type: presumed infectious Qualified Code(s): R19.7 - Diarrhea, unspecified (9) IDDM (insulin dependent diabetes mellitus): Status: Chronic Assessment and plan: Discontinue IV insulin and switch over to basal bolus insulin. Her usual dose of Lantus is around 80 to 90 units a day. Her Lantus should be split into 2 doses given about 12 hours apart. I will put her on Lantus 45 units twice a day along with meal coverage with NovoLog and an insulin resistant sliding scale with NovoLog. Furthermore she will receive NPH at at dosage of 0.5 units per 1 mg of hydrocortisone to be timed at the same time as her hydrocortisone. 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 I anticipate her going to the OR sometime midmorning tomorrow Subjective Subjective Interval history since last seen: Patient is feeling better today. She denies any chest pain or shortness of breath or dizziness. Blood pressure stabilized overnight and she was weaned off the norepinephrine drip overnight. She remains on diltiazem drip for atrial fibrillation for which her heart rate has been under much better control running in the low 100s. She remains on an insulin drip however her blood sugars have improved remarkably overnight down into the 110s. She remains on an insulin drip that 15 units an hour. I am going to convert over to basal bolus insulin and add NPH to be given at the timing of her hydrocortisone injections. I will also start her on short acting Lopressor and diltiazem and wean her off for her diltiazem drip. She remains afebrile. She is currently on meropenem for treatment of sepsis secondary to complicated UTI. Hopefully she will be able to go for cystoscopy ureteroscopy tomorrow and stent. Her lactic acidosis is resolving. She is moderately hypokalemic for which I given her IV supplementation. Her acute kidney injury is improving although her urine output is still marginal. Exam Narrative Exam Narrative: Morbidly obese female who is alert and oriented person place time circumstance. Lungs are clear anteriorly posterior she has some bibasilar rales no rhonchi no wheezes. Heart irregularly irregular but at a reasonably controlled rate. Abdomen is obese soft nontender nondistended normal bowel sounds. Extremities are obese with just a trace of pitting edema. Neurologic exam is grossly intact no focal motor deficits she is alert and oriented person place time circumstance no facial asymmetry speech is clear and coherent Objective Objective Clinical Data: Abnormal lab results 11/09/19 11/09/19 11/10/19 Range/Units 09:27 13:00 00:45 APTT 150.5 H* (21.0-31.4) sec Sodium (136-145) mmol/L Potassium (3.5-5.1) mmol/L BUN (7-18) mg/dL Creatinine (0.55-1.02) mg/dL Glucose (74-106) mg/dL Lactate 5.0 H* (0.6-1.4) mmol/L Calcium (8.5-10.1) mg/dL Urine RBC 20-50 H (0-2) HPF Urine WBC 10-20 H (0-5) HPF 11/10/19 11/10/19 11/10/19 Range/Units 06:07 06:07 06:07 APTT 70.8 H D (21.0-31.4) sec Sodium 131 L (136-145) mmol/L Potassium 3.3 L (3.5-5.1) mmol/L BUN 20 H D (7-18) mg/dL Creatinine 1.65 H (0.55-1.02) mg/dL Glucose 107 H D (74-106) mg/dL Lactate 1.5 H (0.6-1.4) mmol/L Calcium 7.9 L (8.5-10.1) mg/dL Urine RBC (0-2) HPF Urine WBC (0-5) HPF Vital Signs Temperature 36.7 C 11/10/19 08:10 Temperature Source Temporal Artery Scan 11/10/19 08:10 Pulse 105 H 11/10/19 09:22 Pulse 109 H 11/10/19 09:22 Respiratory Rate 19 11/10/19 09:22 Respiratory Effort Non-Labored 11/10/19 08:10 Respiratory Depth Normal 11/10/19 08:10 Respiratory Pattern Normal 11/10/19 08:10 Blood Pressure 101/59 L 11/10/19 09:22 Blood Pressure Mean 69 11/10/19 09:22 Blood Pressure Position Supine 11/10/19 04:00 Pulse Oximetry 96 11/10/19 09:22 Oxygen Delivery Method Room Air 11/10/19 08:10 Oxygen Flow Rate 0 11/10/19 08:10 Pain Level 0 11/10/19 04:00 Intake & Output 11/09/19 11/09/19 11/10/19 11:59 23:59 11:59 Intake Total 500 / 2880.733 2380.733 / 2880.733 1399.759 / 1399.759 Output Total 425 / 590 165 / 590 350 / 350 Balance 75 / 2290.733 2215.733 / 2290.733 1049.759 / 1049.759 Weight 150 kg 150 kg 151.2 kg Intake: IV 500 / 8481.415 3086.733 / 1830.733 599.759 / 599.759 Oral 1050 / 1050 800 / 800 Output: Urine 425 / 590 165 / 590 350 / 350 Other: Urine Color Yellow Light Olivia Dark Olivia Urine Appearance Cloudy Clear Cloudy Sediment Urine Odor None Comment alfred in place. Indwelling Alfred catheter. 100cc removed of dark olivia cloudy urine. Voiding Methods Indwelling Catheter Laboratory Results WBC 7.81 k/cumm (4.4-10.8) 11/09/19 08:55 RBC 4.35 m/cumm (4.00-5.20) 11/09/19 08:55 Hgb 14.0 g/dL (12.0-15.5) 11/09/19 08:55 Hct 42.4 % (36.0-46.0) 11/09/19 08:55 MCV 97.5 fL (80-95) H 11/09/19 08:55 MCH 32.2 pg (27.0-33.0) 11/09/19 08:55 MCHC 33.0 g/dL (32.0-36.0) 11/09/19 08:55 RDW 14.0 % (11.7-14.6) 11/09/19 08:55 Plt Count 219 x1000/uL (130-400) 11/09/19 08:55 MPV 10.0 fL (8.0-11.0) 11/09/19 08:55 Immature Gran % 0.4 % 11/09/19 08:55 Neutrophils % 93.5 11/09/19 08:55 Lymphocytes % 4.5 11/09/19 08:55 Monocytes % 1.2 11/09/19 08:55 Eosinophils % 0.3 11/09/19 08:55 Basophils % 0.1 11/09/19 08:55 Absolute Neutrophils 7.31 k/cumm (1.2-6.7) H 11/09/19 08:55 Absolute Lymphocytes 0.35 k/cumm (1.2-3.4) L 11/09/19 08:55 Absolute Monocytes 0.09 k/cumm (0.11-0.7) L 11/09/19 08:55 Absolute Eosinophils 0.02 k/cumm (0.0-0.7) 11/09/19 08:55 Absolute Basophils 0.01 k/cumm (0.0-0.2) 11/09/19 08:55 PT 12.3 sec (9.3-11.0) H 11/09/19 08:55 INR 1.2 (0.9-1.1) H 11/09/19 08:55 APTT 70.8 sec (21.0-31.4) H D 11/10/19 06:07 Sodium 131 mmol/L (136-145) L 11/10/19 06:07 Potassium 3.3 mmol/L (3.5-5.1) L 11/10/19 06:07 Chloride 98 mmol/L (98-107) 11/10/19 06:07 Carbon Dioxide 24.1 mmol/L (21.0-32.0) 11/10/19 06:07 Anion Gap 8.9 mmol/L (3-11) 11/10/19 06:07 BUN 20 mg/dL (7-18) H D 11/10/19 06:07 Creatinine 1.65 mg/dL (0.55-1.02) H 11/10/19 06:07 Estimated GFR/1.73 m2 30.41 (mL/min/1.73m2) 11/10/19 06:07 Glucose 107 mg/dL (74-106) H D 11/10/19 06:07 Lactate 1.5 mmol/L (0.6-1.4) H 11/10/19 06:07 Calcium 7.9 mg/dL (8.5-10.1) L 11/10/19 06:07 Magnesium 2.0 mg/dL (1.8-2.4) 11/10/19 06:07 Total Bilirubin 0.8 mg/dL (0.2-1.0) 11/09/19 08:55 AST 44 U/L (15-37) H 11/09/19 08:55 ALT 41 U/L (14-59) 11/09/19 08:55 Alkaline Phosphatase 127 U/L (46-116) H 11/09/19 08:55 Troponin I < 0.05 ng/mL (<0.06) 11/09/19 17:30 Total Protein 6.8 g/dL (6.4-8.2) 11/09/19 08:55 Albumin 2.8 g/dL (3.4-5.0) L 11/09/19 08:55 Lipase 46 U/L (73-393) 11/09/19 08:55 Procalcitonin 23.6 ng/mL 11/09/19 13:00 TSH 1.87 uIU/mL (0.36-3.74) 11/09/19 08:55 Urine Color Yellow (Yellow) 11/09/19 09:27 Urine Clarity Sl cloudy (Clear) 11/09/19 09:27 Urine pH 5.5 (5-8) 11/09/19 09:27 Ur Specific Conway 1.020 (1.005-1.025) 11/09/19 09:27 Urine Protein Trace mg/dL (Negative) H 11/09/19 09:27 Urine Ketones 15 mg/dL (Negative) H 11/09/19 09:27 Urine Blood Large (Negative) H 11/09/19 09:27 Urine Nitrite Negative (Negative) 11/09/19 09:27 Urine Bilirubin Negative (Negative) 11/09/19 09:27 Urine Urobilinogen 0.2 EU/dL (Up TO 0.2) 11/09/19 09:27 Ur Leukocyte Esterase Small (Negative) H 11/09/19 09:27 Urine RBC 20-50 HPF (0-2) H 11/09/19 09:27 Urine WBC 10-20 HPF (0-5) H 11/09/19 09:27 Ur Epithelial Cells Few HPF (Negative) 11/09/19 09:27 Urine Crystals Negative HPF (Negative) 11/09/19 09:27 Urine Bacteria Few HPF (Negative) 11/09/19 09:27 Urine Casts Negative LPF (Negative) 11/09/19 09:27 Urine Mucus Negative (Negative) 11/09/19 09:27 Ur Culture Indicated? Yes 11/09/19 09:27 Urine Glucose 500 mg/dL (Negative) H 11/09/19 09:27 COVID-19 PCR Negative (Negative) 11/09/19 12:39 Nasopharyn COVID-19 PCR Not Applicable 11/09/19 12:39 Ref Test Perform Site [place] [facility] 11/09/19 12:39
--- NOTE | 2019-11-10 10:14 | PDOC.CMIN ---
- If Service Date Differs Date of service: 11/10/19 Time of Service: 10:14 Care Management Initial Assess REASON FOR HOSPITALIZATION:: UTI, Diarrhea, hyperglycemia, ureterolithissis PAST MEDICAL HISTORY/PAST SURGICAL HISTORY:: Medical: chronic a-fib, RA, NIDDM, morbid obesity, HTN, chronic renal disease, chronic myalgias, intertriginous candiasis, insomnia, hyperlipidemia, cervical Ca. ectopic . Surgical: BRANDEE/BSO. PREVIOUS FUNCTIONAL STATUS/SOCIAL/FAMILY SUPPORTS:: 74 yo woman who lives with her Delmis in a handicap apartment. She is wheelchair bound. Between her and her spouse they have 6 children, her daughter lives locally and is supportive. CURRENT FUNCTIONAL STATUS:: Ruba is alert and engaged she is being prepared for an echo at the time of visit. Her spouse Delmis has been into visit. She describes a supportive family and SO. She is receiving her care in the ICU CM will continue to follow for discharge planning and coordination. ADVANCE DIRECTIVES:: None on file, CM will review forms and request a pallaitive care consult. Has patient been provided with info about the portal/API?: No Did the patient sign up for the portal?: No (Will offer ) CODE STATUS:: Full Code INSURANCE COVERAGE / FINANCIAL ISSUES:: Medicare and Medicaid LT CURRENT HOME/COMMUNITY SERVICES/EQUIPMENT:: [facility] needs, COA Oraliacollette Glaan is her correctional case records supervisor, wheelchair due to chronic pain, can take a few steps on her on. Lift chair at home. She does have a volunteer that helps with errands. Her daughter and spouse provide her assistance at home. PRIMARY CARE PHYSICIAN:: POTENTIAL DISCHARGE NEEDS:: She will need new orders for home health nursing, PT and OT. She has choices for care highest needs however does not have any outside caregivers except her spouse and daughter. She will also need follow up with primary care and urology as recomended. PATIENT/FAMILY EDUCATION NEEDS:: Discharge education, limitations and follow up plan of care including ask me three and self management. Spouse should be part of the teaching. ANTICIPATED BARRIERS TO DISCHARGE:: No identified barriers, her spouse Delmis does have declining health per Employment Security Officer. Ruba should have home supports ordered at time of discharge to support her and the family at home. TRANSPORTATION:: Via private car with spouse at time of discharge. PLAN:: Ruba is currently receiving care in the ICU. She will be discharged when medically ready. Per provider she will have her urological procedure on . COA updated community service specialist Oralia Galan. Ruba would benefit from a pallaitive consult CM to request. She will need new home health orders for nursing, PT and OT at time of discharge.
[2019-11-10] MEDS: Insulin NPH-Human 300 UNITS/3 ML PEN 25 UNIT SC ×2 (10:17→18:03)
[2019-11-10] MEDS: Insulin Glargine 300 UNITS/3 ML PEN 45 UNITS SC ×2 (10:25→21:58)
[2019-11-10] MEDS: POTASSIUM CHLORIDE/D5-0.9%NACL 1,000 ML 85 MEQ IV (10:37)
[2019-11-10] MEDS: POTASSIUM CHLORIDE/0.9% NACL 1,000 ML 80 MEQ IV ×2 (10:51→23:30)
--- NOTE | 2019-11-10 11:22 | PHA.REVIEW ---
Pharmacy Admission Review - Admission Clinical Review (Last Reviewed 11/09/19 @ 16:54 by Rey Rudolph) Acute renal failure (Acute) Hyperglycemia due to type 1 diabetes mellitus (Acute) Obstructive uropathy (Acute) Sepsis (Acute) Diarrhea (Acute) UTI (urinary tract infection) (Acute) Dehydration (Acute) Ureterolithiasis (Acute) Hyperglycemia (Acute) Atrial fibrillation with RVR (Acute) DVT prophylaxis (Acute) atorvastatin Adverse Reaction (Intermediate, Unverified 11/09/19 08:52) leg cramps lisinopril Adverse Reaction (Intermediate, Unverified 11/09/19 08:52) cough Height 5 ft 8 in Weight 151.2 kg - Renal Dosing Renal Dosing: BUN 20 mg/dL (7-18) H D 11/10/19 06:07 Creatinine 1.65 mg/dL (0.55-1.02) H 11/10/19 06:07 Medications needing adjustments: Reviewed (CrCl ~46.7 mL/min using adjusted BW, current meds okay) - Anticoagulation Anticoagulation: Hgb 14.0 g/dL (12.0-15.5) 11/09/19 08:55 Hct 42.4 % (36.0-46.0) 11/09/19 08:55 Plt Count 219 x1000/uL (130-400) 11/09/19 08:55 INR 1.2 (0.9-1.1) H 11/09/19 08:55 Creatinine 1.65 mg/dL (0.55-1.02) H 11/10/19 06:07 DVT Prohphylaxis: Reviewed Medications: Heparin (Will be D/C before surgery tomorrow) Therapeutic Anticoagulation: Reviewed Medications: Heparin (Currently using to replace at home Pradaxa (D/C to allow for cystoscopy), heparin will be D/C before surgery and MD plans to restart her on Pradaxa after the surgery) - Opiate Usage Evaluate Pain Scale/Pains Meds: N/A - Relevant Labs Sodium 131 mmol/L (136-145) L 11/10/19 06:07 Potassium 3.3 mmol/L (3.5-5.1) L 11/10/19 06:07 Chloride 98 mmol/L (98-107) 11/10/19 06:07 Magnesium 2.0 mg/dL (1.8-2.4) 11/10/19 06:07 Electrolytes, C-Reactive P, ESR: Intervened (K+ and Na+ slightly decreased, glucose 107, BUN 20, PTT was 150.5 but decreased to 70.8, lactate 1.5, Currently has KCL in IVF's) - DM Control DM Control: Glucose 107 mg/dL (74-106) H D 11/10/19 06:07 Finger Stick Blood Glucose 98 Finger Stick Blood Glucose 45 Finger Stick Blood Glucose 115 Finger Stick Blood Glucose 115 Finger Stick Blood Glucose 128 Finger Stick Blood Glucose 101 Finger Stick Blood Glucose 111 Insulin Dosing: Reviewed (Recieving NPH (in addition to lantus, meal time aspart and aspart SS) to cover increase in glucose due to hydrocortisone) - Heart Failure/KY Heart Failure/KY: Troponin I < 0.05 ng/mL (<0.06) 11/09/19 17:30 EF%, AASHISH's, B-Blockers, Diuretics: N/A - BP Control BP Control: Blood Pressure 101/59 Blood Pressure 104/66 Blood Pressure 99/77 Blood Pressure 129/64 Blood Pressure 117/57 Blood Pressure 130/77 Blood Pressure 114/76 Blood Pressure 137/69 Blood Pressure 124/63 Blood Pressure 123/70 Blood Pressure 113/62 If elevated: Intervened (Usually fluctuating between in range and slightly low, was 101/59 this morning, Norepinephrine infusion dc'd, tapering off Diltiazem infusion) - Qtc Review If Elevated: Reviewed (QTc 445) - IV to PO Switch IV Medications: Reviewed (On IV meropenem, IV potassium chloride, IV norepinephrine, IV hydrocortisone, was on IV diltiazem but switching to PO) - Home Meds Home Med List reviewed: Reviewed Relevent Home Meds Not ordered & why?: Calcium carbonate-Vitamin D3, celecoxib, cetirizine, coenzyme Q10, colesevelam, furosemide, Livalo, loperamide, losartan, lutein, Vitamin B12, melatonin, metoprolol succinate (currently on tartrate post diltiazem drip, will switch over to succinate once stabilized), Pradaxa (currently on heparin, will switch over after surgery), prednisone (currently on hydrocortisone), Toujeo, Victoza, Vitamin B complex, Vitamin C - Current meds Current Medication Order Review: Reviewed (Stop date added to heparin, switching from diltiazem IV to PO, Insulin NPH to cover hydrocortisone,) - Comments Comments/Follow Ups: Monitor Na, K (MD started potassium chloride supplement) , BUN, PTT (has decreased since this morning but still elevated), lactate (decreasing but still elevated) and for med changes (stopping heparin and starting Pradaxa, switch from Lopressor to Toprol XL, any changes to meropenem following cultures, changing from insulin drip to basal bolus and NPH, stopping diltiazem drip and switching to PO). Also monitor for drug interactions once home meds are started (increased exposure of tamsulosin when used with duloxetine and bupropion). Going to OR 11/[address] stent for 8mm kidney stone Antibiotic Activity - Pharmacy Antibiotic Review Pharmacy Antibiotic Activity: Renal function adjustment (Meropenem is renally adjusted, blood cultures being obtained after admission and after Antibiotic coverage bagan. ER obtained only the urine culture, please follow, Procalcitonin level 23.6 on admission)
[2019-11-10] MEDS: Insulin Aspart 300 UNITS/3 ML PEN SC ×3 (12:19→17:20)
--- NOTE | 2019-11-10 13:16 | DI.US_ITS ---
APPROVED REPORT EXAM: Comprehensive 2D, Doppler, and color-flow Echocardiogram Patient Location: In-Patient Room/Bed: IQU774 Indications: Sepsis,Evaluate RV and LV Function Other Information Study Quality: Poor. Technically limited study due to body habitus. Conclusion Normal left ventricular wall thickness and chamber size. Estimated ejection fraction is approximatel y 50% there are no segmental wall motion abnormalities Normal right ventricular size and systolic function. Normal estimated right ventricular systolic pre ssure Both atria are top normal in size Aortic valve is sclerotic without stenosis or regurgitation Mildly thickened mitral leaflets with mild regurgitation The tricuspid valve is structurally normal with mild regurgitation Structurally normal pulmonic valve, no pulmonic regurgitation Wall motion Left Ventricle The left ventricle is normal size. Left ventricular systolic function is mildly decreased. There is n ormal left ventricular wall thickness. There is global mild hypokinesis of the left ventricle. There is no ventricular septal defect visualized. LVEF is 50%. Right Ventricle The right ventricle is normal size. The right ventricular systolic function is normal. Atria Left atrium is borderline dilated. Right atrium is borderline dilated. The interatrial septum is inta ct with no evidence for an atrial septal defect. Aortic Valve Aortic valve is trileaflet. The Aortic valve is sclerotic. There is no aortic valvular stenosis. No a ortic regurgitation is present. Mitral Valve Mildly thickened mitral leaflets No evidence of mitral valve stenosis. Mild mitral regurgitation. Tricuspid Valve The tricuspid valve is normal in structure. There is no tricuspid valve stenosis. Mild tricuspid regu rgitation. Pulmonic Valve The pulmonary valve is normal in structure. There is no pulmonic valvular stenosis. There is no pulmo kathy valvular regurgitation. Great Vessels The aortic root is normal in size. The ascending aorta is mildly dilated. Ascending aorta is not well visualized. IVC is normal in size and collapses >50% with inspiration. Pericardium There is no pericardial effusion. 2D Dimensions IVSD d PLAX 0.99 cm F: 0.6-1.0 LV Vol A2C d MOD 80.8 mL LVPW d PLAX 0.97 cm F: 0.6 - 1.0 LV Vol A4C d MOD 71.2 mL LVID d PLAX 5.26 cm F: 3.8 - 5.2 LA vol/ BSA A2C s A-L 27.5 mL/m2 LVDs 4.20 cm F: 2.2 - 3.5 LA vol/ BSA A4C s A-L 36.2 mL/m2 Ao Root d 3.14 cm F: 2.7 - 3.3 LA Vol/ BSA Biplane s A-L 33.5 mL/m2 RA Area A4C 24.25 cm2 LA Area A4C s MOD 26.94 cm2 RA Vol/ BSA A4C s A-L 30.9 mL/m2 LA Area A2C s MOD 22.10 cm2 Ao Asc Diam d 3.33 cm F: 2.3 - 3.1 LV EF A4C MOD 44.0 % LV EF Teichholz 40.6 % LV EF A2C MOD 41.7 % LVEF (Nicole's) 43.14 % F: 54 - 74 LV EF Biplane MOD 43.1 % LV Volume 54.14 mL F: 46 - 106 SV 33.48 mL LV Volume Index 21.39 mL/m2 F: 29 - 61 SV Index 13.24 mL/m2 LV Vol Biplane MOD 77.6 mL FS 19.95 % M-Mode TAPSE 1.56 cm (M/F) >1.7 LV Diastology MV E' medial 0.085 (>0.07 m/s) E/A Ratio 3.7 LV E/e MED 13.20 (<14) MV E Vmax 1.12 (0.4-1.3 m/s) MV E' lateral 0.077 (>0.1 m/s) MV A Vmax 0.30 (0.4-1.3 m/s) LV E/e LAT 14.60 (<14) MV E/A Ratio 3.37 MV E/E' medial 13.21 MV E/E' lateral 14.62 Aortic Valve LVOT Area 2.97 cm2 AoV Area Vmax 2.33 cm2 LVOT Vmax 0.84 m/s AoV Area/ BSA (Vmax) 0.92 cm2/m2 LVOT Mean Flako. 0.59 m/s MAGALIE Mean Flako. 2.16 cm2 LVOT Peak Grad 2.9 mmHg MAGALIE Mean Flako. Index 0.85 cm2/m2 LVOT Mean Grad 1.6 mmHg LVOT VTI 0.146 m LVOT Diam s 1.90 cm AoV Vmax 1.08 m/s Velocity Ratio 0.77 AoV Mean Flako. 0.81 m/s AoV Peak Grad 4.6 mmHg LVOT SV 43.50 mL AoV Mean Grad 2.8 mmHg AoV VTI 0.160 m AoV Area VTI 2.71 cm2 AoV Area/ BSA (VTI) 1.07 cm/m2 Mitral Valve MV DT 195 (160-240 msec) MV PHT 56 msec MV Area PHT 3.90 cm2 MV VTI 0.222 m MV Area VTI 1.96 (4.0-6.0 cm2) Pulmonary Valve PV Vmax 0.64 (0.5-1.5 m/s) RVOT Peak Gr. 1.32 mmHg PV Peak Grad 1.6 mmHg RVOT Mean Gr. 0.65 mmHg PV Mean Grad 0.9 mmHg RVOT VTI 0.091 m PV VTI 0.094 m RVOT Vmax 0.58 m/s Tricuspid Valve TR Peak Grad 16.3 mmHg TR Vmax 2.02 m/s RA Pressure 3.00 mmHg RVSP (TR) 19.4 mmHg
[2019-11-10 15:15] LABS: PTT Activated 80.6 sec (21.0-31.4)
[2019-11-10 23:17] LABS: PTT Activated 47.3 sec (21.0-31.4)
[2019-11-11] VITALS (52 sets, daily range): BP systolic 71–147; BP diastolic 43–111; PULSE 86–159; RESP 15–115; TEMP 36.2–37; O2SAT 91–99
[2019-11-11] MEDS: Insulin NPH-Human 300 UNITS/3 ML PEN 25 UNIT SC ×3 (01:19→19:39)
[2019-11-11] MEDS: Hydrocortisone SOD SUC. 100 MG VIAL 50 MG IVP ×3 (01:19→19:39)
[2019-11-11] MEDS: MEROPENEM 1 GM in Normal Saline 100 ML IVPB ×2 (04:27→16:16)
[2019-11-11] MEDS: Normal Saline Flush 10 ML SYR IVP ×6 (06:16→21:26)
[2019-11-11 06:25] LABS: Abs Immature Grans 0.07 10^3/uL (0.0-0.06); Absolute Basophil Count 0.01 10^3/uL (0.0-0.2); Absolute Eosinophil Count 0.01 10^3/uL (0.0-0.7); Absolute Lymphocyte Count 0.44 10^3/uL (1.2-3.4); Absolute Monocyte Count 0.64 10^3/uL (0.1-0.8); Absolute Neutrophil Count 7.01 10^3/uL (1.2-6.7); Basophils % 0.1; Eosinophils % 0.1; HCT 30.5 % (36.0-46.0); HGB 10.1 g/dL (11.2-15.7); Immature Grans % 0.9; Lymphocytes % 5.4; MCH 32.2 pg (27.0-33.0); MCHC 33.1 % (32.0-36.0); MCV 97.1 fL (80-95); MPV 10.6 fL (8.0-11.0); Monocytes % 7.8; Neutrophils % 85.7; Platelet Count 177 10^3/uL (130-400); RBC 3.14 10^6/uL (3.93-5.22); RDW 13.9 % (11.7-14.6); RDW-SD 49.3 fL; WBC 8.18 10^3/uL (4.4-10.8)
[2019-11-11 06:49] LABS: Anion Gap 7.5 mmol/L (3-11); BUN 28 mg/dL (7-18); CO2 22.5 mmol/L (21.0-32.0); Calcium 7.4 mg/dL (8.5-10.1); Chloride 101 mmol/L (98-107); Estimated GFR 33.94 (mL/min/1.73m2); Glucose 297 mg/dL (74-106); Potassium 4.6 mmol/L (3.5-5.1); Sodium 131 mmol/L (136-145)
--- NOTE | 2019-11-11 07:03 | PGE_ITS ---
Date of Service Date of service: 11/11/19 Time of Service: 07:03 Assessment and Plan Assessment and plan (1) Obstructive uropathy: Status: Acute Assessment and plan: We will place a ureteral stent today. We will not plan on addressing her stone but simply relieve her obstruction. (2) Sepsis: Status: Acute Qualifiers: Sepsis type: sepsis due to unspecified organism Sepsis acute organ dysfunction status: with acute organ dysfunction Severe sepsis acute organ dysfunction type: acute renal failure Acute renal failure type: unspecified Subjective Subjective Interval history since last seen: She is not having any pain, but has begun having bloody diarrhea. Her heparin has been turned off. Exam Narrative Exam Narrative: She is morbidly obese. She does not appear septic or toxic Her vital signs are documented elsewhere She is awake and alert Her initial urine culture is growing lactobacillus Objective Objective Clinical Data: Abnormal lab results 11/10/19 11/10/19 11/11/19 Range/Units 14:16 22:25 06:15 RBC (3.93-5.22) 10^6/uL Hgb (11.2-15.7) g/dL Hct (36.0-46.0) % MCV (80-95) fL Absolute Neutrophils (1.2-6.7) 10^3/uL Absolute Lymphocytes (1.2-3.4) 10^3/uL APTT 80.6 H* 47.3 H D (21.0-31.4) sec Sodium 131 L (136-145) mmol/L BUN 28 H (7-18) mg/dL Creatinine 1.50 H (0.55-1.02) mg/dL Glucose 297 H D (74-106) mg/dL Calcium 7.4 L (8.5-10.1) mg/dL 11/11/19 Range/Units 06:15 RBC 3.14 L (3.93-5.22) 10^6/uL Hgb 10.1 L (11.2-15.7) g/dL Hct 30.5 L (36.0-46.0) % MCV 97.1 H (80-95) fL Absolute Neutrophils 7.01 H (1.2-6.7) 10^3/uL Absolute Lymphocytes 0.44 L (1.2-3.4) 10^3/uL APTT (21.0-31.4) sec Sodium (136-145) mmol/L BUN (7-18) mg/dL Creatinine (0.55-1.02) mg/dL Glucose (74-106) mg/dL Calcium (8.5-10.1) mg/dL Vital Signs Temperature 37 C 11/11/19 04:00 Temperature Source Temporal Artery Scan 11/11/19 04:00 Pulse 118 H 11/11/19 05:31 Pulse 108 H 11/11/19 05:31 Respiratory Rate 20 11/11/19 05:31 Respiratory Effort 11/11/19 04:00 Respiratory Depth Normal 11/11/19 04:00 Respiratory Pattern Normal 11/11/19 04:00 Blood Pressure 114/59 L 11/11/19 05:31 Blood Pressure Mean 66 11/11/19 05:31 Blood Pressure Position Supine 11/10/19 16:57 Pulse Oximetry 96 11/11/19 05:31 Oxygen Delivery Method Nasal Cannula 11/11/19 01:07 Oxygen Flow Rate 2 11/11/19 01:07 Pain Level 0 11/11/19 04:00 Intake & Output 11/10/19 11/10/19 11/11/19 11:59 23:59 11:59 Intake Total 1503.575 / 3178.558 1674.983 / 3178.558 377.917 / 377.917 Output Total 350 / 950 600 / 950 Balance 1153.575 / 2228.558 1074.983 / 2228.558 377.917 / 377.917 Weight 151.2 kg Intake: IV 703.575 / 2094.795 4233.983 / 1878.558 77.917 / 77.917 Oral 800 / 1300 500 / 1300 300 / 300 Output: Urine 350 / 950 600 / 950 Other: Urine Color Dark Olivia Dark Olivia Urine Appearance Cloudy Sediment Sediment Mucous Threads Comment Indwelling Alfred catheter. 100cc removed of dark olivia cloudy urine. alfred in place, dark olivia with sediment. alfred in place, dark olivia with sediment. Stool Occult Blood Positive Stool Size Moderate Stool Characteristics Soft Bloody Laboratory Results WBC 8.18 10^3/uL (4.4-10.8) 11/11/19 06:15 RBC 3.14 10^6/uL (3.93-5.22) L 11/11/19 06:15 Hgb 10.1 g/dL (11.2-15.7) L 11/11/19 06:15 Hct 30.5 % (36.0-46.0) L 11/11/19 06:15 MCV 97.1 fL (80-95) H 11/11/19 06:15 MCH 32.2 pg (27.0-33.0) 11/11/19 06:15 MCHC 33.1 % (32.0-36.0) 11/11/19 06:15 RDW 13.9 % (11.7-14.6) 11/11/19 06:15 Plt Count 177 10^3/uL (130-400) 11/11/19 06:15 MPV 10.6 fL (8.0-11.0) 11/11/19 06:15 Immature Gran % 0.9 11/11/19 06:15 Neutrophils % 85.7 11/11/19 06:15 Lymphocytes % 5.4 11/11/19 06:15 Monocytes % 7.8 11/11/19 06:15 Eosinophils % 0.1 11/11/19 06:15 Basophils % 0.1 11/11/19 06:15 Absolute Neutrophils 7.01 10^3/uL (1.2-6.7) H 11/11/19 06:15 Absolute Lymphocytes 0.44 10^3/uL (1.2-3.4) L 11/11/19 06:15 Absolute Monocytes 0.64 10^3/uL (0.1-0.8) 11/11/19 06:15 Absolute Eosinophils 0.01 10^3/uL (0.0-0.7) 11/11/19 06:15 Absolute Basophils 0.01 10^3/uL (0.0-0.2) 11/11/19 06:15 PT 12.3 sec (9.3-11.0) H 11/09/19 08:55 INR 1.2 (0.9-1.1) H 11/09/19 08:55 APTT 47.3 sec (21.0-31.4) H D 11/10/19 22:25 Sodium 131 mmol/L (136-145) L 11/11/19 06:15 Potassium 4.6 mmol/L (3.5-5.1) D 11/11/19 06:15 Chloride 101 mmol/L (98-107) 11/11/19 06:15 Carbon Dioxide 22.5 mmol/L (21.0-32.0) 11/11/19 06:15 Anion Gap 7.5 mmol/L (3-11) 11/11/19 06:15 BUN 28 mg/dL (7-18) H 11/11/19 06:15 Creatinine 1.50 mg/dL (0.55-1.02) H 11/11/19 06:15 Estimated GFR/1.73 m2 33.94 (mL/min/1.73m2) 11/11/19 06:15 Glucose 297 mg/dL (74-106) H D 11/11/19 06:15 Lactate 1.5 mmol/L (0.6-1.4) H 11/10/19 06:07 Calcium 7.4 mg/dL (8.5-10.1) L 11/11/19 06:15 Magnesium 2.0 mg/dL (1.8-2.4) 11/10/19 06:07 Total Bilirubin 0.8 mg/dL (0.2-1.0) 11/09/19 08:55 AST 44 U/L (15-37) H 11/09/19 08:55 ALT 41 U/L (14-59) 11/09/19 08:55 Alkaline Phosphatase 127 U/L (46-116) H 11/09/19 08:55 Troponin I < 0.05 ng/mL (<0.06) 11/09/19 17:30 Total Protein 6.8 g/dL (6.4-8.2) 11/09/19 08:55 Albumin 2.8 g/dL (3.4-5.0) L 11/09/19 08:55 Lipase 46 U/L (73-393) 11/09/19 08:55 Procalcitonin 23.6 ng/mL 11/09/19 13:00 TSH 1.87 uIU/mL (0.36-3.74) 11/09/19 08:55 Urine Color Yellow (Yellow) 11/09/19 09:27 Urine Clarity Sl cloudy (Clear) 11/09/19 09:27 Urine pH 5.5 (5-8) 11/09/19 09:27 Ur Specific [place] 1.020 (1.005-1.025) 11/09/19 09:27 Urine Protein Trace mg/dL (Negative) H 11/09/19 09:27 Urine Ketones 15 mg/dL (Negative) H 11/09/19 09:27 Urine Blood Large (Negative) H 11/09/19 09:27 Urine Nitrite Negative (Negative) 11/09/19 09:27 Urine Bilirubin Negative (Negative) 11/09/19 09:27 Urine Urobilinogen 0.2 EU/dL (Up TO 0.2) 11/09/19 09:27 Ur Leukocyte Esterase Small (Negative) H 11/09/19 09:27 Urine RBC 20-50 HPF (0-2) H 11/09/19 09:27 Urine WBC 10-20 HPF (0-5) H 11/09/19 09:27 Ur Epithelial Cells Few HPF (Negative) 11/09/19 09:27 Urine Crystals Negative HPF (Negative) 11/09/19 09:27 Urine Bacteria Few HPF (Negative) 11/09/19 09:27 Urine Casts Negative LPF (Negative) 11/09/19 09:27 Urine Mucus Negative (Negative) 11/09/19 09:27 Ur Culture Indicated? Yes 11/09/19 09:27 Urine Glucose 500 mg/dL (Negative) H 11/09/19 09:27 COVID-19 PCR Negative (Negative) 11/09/19 12:39 Nasopharyn COVID-19 PCR Not Applicable 11/09/19 12:39 Ref Test [facility] 11/09/19 12:39
[2019-11-11] MEDS: Lactated Ringers 1,000 ML 50 ML IV (07:35)
[2019-11-11] MEDS: Lidocaine 2% Jelly 6 ML SYR (08:00)
[2019-11-11] MEDS: Omnipaque 300 MG/ML 50 ML BTL (08:09)
--- NOTE | 2019-11-11 08:20 | DI.RAD_ITS ---
EXAM: XR RETROGRADE IN OR CLINICAL HISTORY: Ureterolithiasis. TECHNIQUE: Fluoroscopy was provided for the referring physician for guidance with performing retrogr claus procedure. COMPARISON: No exams were available for comparison FINDINGS: Please see procedure note for details. Fluoro time: 15.2 sec RADIATION DOSE DELIVERED:
--- NOTE | 2019-11-11 08:39 | ROE_ITS ---
Date of service: 11/11/19 Time of Service: 08:39 Operative Note Operative Note DATE OF PROCEDURE: 11/09/19 PRE-OP DIAGNOSIS: Right ureteral stone with hydronephrosis PROCEDURE: Cystoscopy, right retrograde pyelogram, insert right ureteral stent SURGEON: Andres Fernandez ANESTHESIA: MAC and local ESTIMATED BLOOD LOSS: 0 COMPLICATIONS: None Patient was transported to: ICU Patient's condition: stable Implants: 7 [place] by 22 to 30 cm ureteral stent Indications: This is a 74-year-old woman who presented to the emergency room with abdominal pain and sepsis. She was found to have right hydronephrosis and a proximal right ureter. She presents for stent placement Findings: Purulent material draining from right ureter after wire passed Procedure Description: The patient was brought to the operating room on 11/11/2019. After successful induction of monitored anesthesia care, she was placed in the dorsal lithotomy position. Her indwelling catheter was removed. Her genitalia was prepped and draped. A 22 [place] rigid cystoscope was passed through the urethra into the bladder. The bladder was inspected with a 30 degree lens. The right ureteral orifice was identified. The orifice was cannulated with a 6 [place] access catheter and a retrograde film was obtained by injecting Omnipaque through the access catheter under fluoroscopic guidance. There was a filling defect in the proximal right ureter and dilation of the calyces and renal pelvis above the level of the stone. A Glidewire was then passed through the access catheter and maneuvered up the ureter. Once the wire passed the stone and entered the collecting system, purulent material drained freely from that right ureter. A 7 [place] variable length stent was then advanced over the wire. The proximal end of the stent was curled in the upper pole calyx and the distal end was curled within the bladder. The positioning of the stent was confirmed both fluoroscopically and cystoscopically. The cystoscope was removed. A 16 [place] Connell catheter was passed back through the urethra into the bladder. The catheter balloon was inflated with 10 cc of sterile water. The catheter was hooked to gravity drainage. The patient tolerated this procedure well. She was returned to the intensive care unit in stable condition.
--- NOTE | 2019-11-11 08:45 | PDOC.CMPRO ---
Care Management Progress Note S/O: Elizabeth will have urological procedure today with Dr. Fernandez. Palliative Care was unable to meet with her due to multiple procedures and care needs. CM continues to follow. A: 74 year old female admitted to [facility] on 11/09/19 for UTI, diarrhea, hyperglycemia, ureterolithisis P: Ruba is currently receiving care in the ICU. She will be discharged when medically ready. Ruba had a Palliative consult scheduled for today that was unable to be completed. She will require new home health orders for nursing, PT and OT at time of discharge.
[2019-11-11] MEDS: Metoprolol 50 MG TAB PO (09:09)
[2019-11-11] MEDS: dilTIAZem 60 MG TAB PO ×3 (09:09→20:01)
[2019-11-11] MEDS: Tamsulosin 0.4 MG CAPCR PO (09:09)
[2019-11-11] MEDS: Multivitamin TAB 1 TAB PO (09:09)
[2019-11-11] MEDS: DULoxetine 30 MG CAP 60 MG PO (09:10)
[2019-11-11] MEDS: Insulin Aspart 300 UNITS/3 ML PEN SC ×3 (09:10→19:40)
[2019-11-11] MEDS: buPROPion-CR 100 MG TABCR PO (09:10)
--- NOTE | 2019-11-11 09:42 | W.PM.PROGNOT ---
Date of Service Date of service: 11/11/19 Time of Service: 09:42 Assessment and Plan Assessment and plan (1) Gastrointestinal bleeding: Status: Chronic Assessment and plan: Undetermined etiology of her gastrointestinal bleeding. Patient developed maroon liquid stools overnight. I have ordered type and screen and transfuse 1 unit packed red cells have also ordered IV Protonix and consulted with Dr. Ilana Whatley for EGD. For now I am going to hold off and given her Pradaxa since is been nearly 3 days since her last dose unless the patient continues to have ongoing GI bleeding. Qualifiers: GI bleed type/associated pathology: unspecified gastrointestinal hemorrhage type Qualified Code(s): K92.2 - Gastrointestinal hemorrhage, unspecified (2) Sepsis: Status: Resolved Assessment and plan: Patient had remained hemodynamically stable for over 24 hours been off the norepinephrine drip with stable heart rate and blood pressure until her GI bleeding. Present time she is tachycardic but not hypotensive and not requiring vasopressors. We will keep the patient in the ICU until GI bleeding resolves. Qualifiers: Sepsis type: sepsis due to unspecified organism Sepsis acute organ dysfunction status: with acute organ dysfunction Severe sepsis acute organ dysfunction type: acute renal failure Acute renal failure type: unspecified (3) UTI (urinary tract infection): Status: Acute Assessment and plan: Broad-spectrum antibiotics with meropenem pending results of her urine and blood cultures. Qualifiers: Urinary tract infection type: site unspecified Hematuria presence: with hematuria Qualified Code(s): N39.0 - Urinary tract infection, site not specified; R31.9 - Hematuria, unspecified (4) Obstructive uropathy: Status: Acute Assessment and plan: Antibiotics as above. Status post ureteroscopy and cystoscopy with ureteral stent placement. (5) Ureterolithiasis: Status: Acute Assessment and plan: As above (6) Acute renal failure: Status: Acute Assessment and plan: Supportive care as above. Continue to monitor daily BMP and urine output Qualifiers: Acute renal failure type: unspecified Qualified Code(s): N17.9 - Acute kidney failure, unspecified (7) Atrial fibrillation with RVR: Status: Acute Assessment and plan: Patient is back on oral Lopressor and diltiazem. A. fib is a little fast but does not require diltiazem drip at this point. Patient received her morning medicines. Will monitor in the ICU and restart diltiazem drip if needed. (8) Diarrhea: Status: Acute Assessment and plan: Patient C. difficile screen was negative. She had had some diarrhea the preceding her hospitalization however her current diarrhea is bloody and related to acute GI bleeding of undetermined source. Qualifiers: Diarrhea type: presumed infectious Qualified Code(s): R19.7 - Diarrhea, unspecified (9) IDDM (insulin dependent diabetes mellitus): Status: Chronic Assessment and plan: Discontinue IV insulin and switch over to basal bolus insulin. Her usual dose of Lantus is around 80 to 90 units a day. Her Lantus should be split into 2 doses given about 12 hours apart. I will put her on Lantus 45 units twice a day along with meal coverage with NovoLog and an insulin resistant sliding scale with NovoLog. Furthermore she will receive NPH at at dosage of 0.5 units per 1 mg of hydrocortisone to be timed at the same time as her hydrocortisone. (10) Hyperglycemia due to type 1 diabetes mellitus: Status: Acute Assessment and plan: As above (11) Steroid dependent: Status: Chronic Assessment and plan: stress dose hydrocortisone as above (12) DVT prophylaxis: Status: Acute Assessment and plan: heparin drip as above however will discontinue her heparin drip at least 6 hours prior to her surgical time tomorrow. I anticipate her going to the OR sometime midmorning tomorrow Subjective Subjective Interval history since last seen: Patient underwent cystoscopy ureteroscopy and stent placement this morning. Apparently during the night she had a couple bloody bowel movements. She had another bloody bowel movement with grossly maroon liquid stool upon return from the OR to the ICU. Her hemoglobin is dropped to 10.1 g from admission hemoglobin of 14 g. As far as the patient is now she has had no history of GI bleeding. However she has been having diarrhea prior to admission but according to her it was not bloody diarrhea. She denies any history of peptic ulcer disease or diverticulitis. She has some crampy abdominal pain but no exquisite tenderness. No nausea or vomiting or hematemesis. I have ordered a type and screen and ordered a unit of packed red cells to be given. Patient consented to blood transfusion. I have contacted Dr. Ilana Whatley, surgeon, regarding evaluation of her GI bleeding. Dr. Whatley plans to perform an EGD around noon time. Patient previously been on Pradaxa for A. fib but her last dose was taken on the evening of November 08, 2019. Patient had been on heparin drip while her Pradaxa had been on hold but the heparin drip was discontinued last night around 2 AM to allow for the heparin to wear off in time for her surgery. Exam Narrative Exam Narrative: Obese female lying in bed who is alert and oriented person place time circumstance. Patient had a large bloody bowel movement on arrival back from postanesthesia care unit. Lungs are clear to auscultation. Heart is tachycardic irregularly irregular heart rate in the 110s. Abdomen is obese soft mild tenderness without guarding or rebound tenderness. She has hyperactive bowel sounds. Objective Objective Clinical Data: Abnormal lab results 11/10/19 11/10/19 11/11/19 Range/Units 14:16 22:25 06:15 RBC (3.93-5.22) 10^6/uL Hgb (11.2-15.7) g/dL Hct (36.0-46.0) % MCV (80-95) fL Absolute Neutrophils (1.2-6.7) 10^3/uL Absolute Lymphocytes (1.2-3.4) 10^3/uL APTT 80.6 H* 47.3 H D (21.0-31.4) sec Sodium 131 L (136-145) mmol/L BUN 28 H (7-18) mg/dL Creatinine 1.50 H (0.55-1.02) mg/dL Glucose 297 H D (74-106) mg/dL Calcium 7.4 L (8.5-10.1) mg/dL Crossmatch 11/11/19 11/11/19 Range/Units 06:15 09:23 RBC 3.14 L (3.93-5.22) 10^6/uL Hgb 10.1 L (11.2-15.7) g/dL Hct 30.5 L (36.0-46.0) % MCV 97.1 H (80-95) fL Absolute Neutrophils 7.01 H (1.2-6.7) 10^3/uL Absolute Lymphocytes 0.44 L (1.2-3.4) 10^3/uL APTT (21.0-31.4) sec Sodium (136-145) mmol/L BUN (7-18) mg/dL Creatinine (0.55-1.02) mg/dL Glucose (74-106) mg/dL Calcium (8.5-10.1) mg/dL Crossmatch See Detail Vital Signs Temperature 37 C 11/11/19 04:00 Temperature Source Temporal Artery Scan 11/11/19 04:00 Pulse 118 H 11/11/19 05:31 Pulse 108 H 11/11/19 05:31 Respiratory Rate 20 11/11/19 05:31 Respiratory Effort 11/11/19 04:00 Respiratory Depth Normal 11/11/19 04:00 Respiratory Pattern Normal 11/11/19 04:00 Blood Pressure 114/59 L 11/11/19 05:31 Blood Pressure Mean 66 11/11/19 05:31 Blood Pressure Position Supine 11/10/19 16:57 Pulse Oximetry 96 11/11/19 05:31 Oxygen Delivery Method Nasal Cannula 11/11/19 01:07 Oxygen Flow Rate 2 11/11/19 01:07 Pain Level 0 11/11/19 04:00 Intake & Output 11/10/19 11/10/19 11/11/19 11:59 23:59 11:59 Intake Total 1503.575 / 3178.558 1674.983 / 3178.558 777.917 / 777.917 Output Total 350 / 950 600 / 950 1250 / 1250 Balance 1153.575 / 2228.558 1074.983 / 2228.558 -472.083 / -472.083 Weight 151.2 kg 152.9 kg Intake: IV 703.575 / 8351.869 9701.983 / 1878.558 477.917 / 477.917 Oral 800 / 1300 500 / 1300 300 / 300 Output: Urine 350 / 950 600 / 950 1250 / 1250 Other: Urine Color Dark Olivia Dark Olivia Light Olivia Urine Appearance Cloudy Sediment Clear Sediment Mucous Threads Comment Indwelling Alfred catheter. 100cc removed of dark olivia cloudy urine. alfred in place, dark olivia with sediment. alfred in place, dark olivia with sediment. Stool Occult Blood Positive Stool Size Large Stool Characteristics Liquid Bloody Laboratory Results WBC 8.18 10^3/uL (4.4-10.8) 11/11/19 06:15 RBC 3.14 10^6/uL (3.93-5.22) L 11/11/19 06:15 Hgb 10.1 g/dL (11.2-15.7) L 11/11/19 06:15 Hct 30.5 % (36.0-46.0) L 11/11/19 06:15 MCV 97.1 fL (80-95) H 11/11/19 06:15 MCH 32.2 pg (27.0-33.0) 11/11/19 06:15 MCHC 33.1 % (32.0-36.0) 11/11/19 06:15 RDW 13.9 % (11.7-14.6) 11/11/19 06:15 Plt Count 177 10^3/uL (130-400) 11/11/19 06:15 MPV 10.6 fL (8.0-11.0) 11/11/19 06:15 Immature Gran % 0.9 11/11/19 06:15 Neutrophils % 85.7 11/11/19 06:15 Lymphocytes % 5.4 11/11/19 06:15 Monocytes % 7.8 11/11/19 06:15 Eosinophils % 0.1 11/11/19 06:15 Basophils % 0.1 11/11/19 06:15 Absolute Neutrophils 7.01 10^3/uL (1.2-6.7) H 11/11/19 06:15 Absolute Lymphocytes 0.44 10^3/uL (1.2-3.4) L 11/11/19 06:15 Absolute Monocytes 0.64 10^3/uL (0.1-0.8) 11/11/19 06:15 Absolute Eosinophils 0.01 10^3/uL (0.0-0.7) 11/11/19 06:15 Absolute Basophils 0.01 10^3/uL (0.0-0.2) 11/11/19 06:15 PT 12.3 sec (9.3-11.0) H 11/09/19 08:55 INR 1.2 (0.9-1.1) H 11/09/19 08:55 APTT 47.3 sec (21.0-31.4) H D 11/10/19 22:25 Sodium 131 mmol/L (136-145) L 11/11/19 06:15 Potassium 4.6 mmol/L (3.5-5.1) D 11/11/19 06:15 Chloride 101 mmol/L (98-107) 11/11/19 06:15 Carbon Dioxide 22.5 mmol/L (21.0-32.0) 11/11/19 06:15 Anion Gap 7.5 mmol/L (3-11) 11/11/19 06:15 BUN 28 mg/dL (7-18) H 11/11/19 06:15 Creatinine 1.50 mg/dL (0.55-1.02) H 11/11/19 06:15 Estimated GFR/1.73 m2 33.94 (mL/min/1.73m2) 11/11/19 06:15 Glucose 297 mg/dL (74-106) H D 11/11/19 06:15 Lactate 1.5 mmol/L (0.6-1.4) H 11/10/19 06:07 Calcium 7.4 mg/dL (8.5-10.1) L 11/11/19 06:15 Magnesium 2.0 mg/dL (1.8-2.4) 11/10/19 06:07 Total Bilirubin 0.8 mg/dL (0.2-1.0) 11/09/19 08:55 AST 44 U/L (15-37) H 11/09/19 08:55 ALT 41 U/L (14-59) 11/09/19 08:55 Alkaline Phosphatase 127 U/L (46-116) H 11/09/19 08:55 Troponin I < 0.05 ng/mL (<0.06) 11/09/19 17:30 Total Protein 6.8 g/dL (6.4-8.2) 11/09/19 08:55 Albumin 2.8 g/dL (3.4-5.0) L 11/09/19 08:55 Lipase 46 U/L (73-393) 11/09/19 08:55 Procalcitonin 23.6 ng/mL 11/09/19 13:00 TSH 1.87 uIU/mL (0.36-3.74) 11/09/19 08:55 Urine Color Yellow (Yellow) 11/09/19 09:27 Urine Clarity Sl cloudy (Clear) 11/09/19 09:27 Urine pH 5.5 (5-8) 11/09/19 09:27 Ur Specific [place] 1.020 (1.005-1.025) 11/09/19 09:27 Urine Protein Trace mg/dL (Negative) H 11/09/19 09:27 Urine Ketones 15 mg/dL (Negative) H 11/09/19 09:27 Urine Blood Large (Negative) H 11/09/19 09:27 Urine Nitrite Negative (Negative) 11/09/19 09:27 Urine Bilirubin Negative (Negative) 11/09/19 09:27 Urine Urobilinogen 0.2 EU/dL (Up TO 0.2) 11/09/19 09:27 Ur Leukocyte Esterase Small (Negative) H 11/09/19 09:27 Urine RBC 20-50 HPF (0-2) H 11/09/19 09:27 Urine WBC 10-20 HPF (0-5) H 11/09/19 09:27 Ur Epithelial Cells Few HPF (Negative) 11/09/19 09:27 Urine Crystals Negative HPF (Negative) 11/09/19 09:27 Urine Bacteria Few HPF (Negative) 11/09/19 09:27 Urine Casts Negative LPF (Negative) 11/09/19 09:27 Urine Mucus Negative (Negative) 11/09/19 09:27 Ur Culture Indicated? Yes 11/09/19 09:27 Urine Glucose 500 mg/dL (Negative) H 11/09/19 09:27 COVID-19 PCR Negative (Negative) 11/09/19 12:39 Nasopharyn COVID-19 PCR Not Applicable 11/09/19 12:39 Ref Test Perform Site [facility] lab 11/09/19 12:39 Crossmatch See Detail 11/11/19 09:23
--- NOTE | 2019-11-11 09:52 | SCONE_ITS ---
Assessment and Plan Assessment and plan (1) Gastrointestinal bleeding: Status: Chronic Assessment and plan: I advised EGD. The procedure and risks of perforation with need for surgery discussed. The patient agrees to proceed. If normal, will consider proceeding with colonoscopy when stable and prep can be performed. Qualifiers: GI bleed type/associated pathology: unspecified gastrointestinal hemorrhage type Qualified Code(s): K92.2 - Gastrointestinal hemorrhage, unspecified History of Present Illness Narrative: This patient was admitted with urosepsis and had ureteral stent placement this morning. She began having maroon stools this am and has had about 7-8. She is on Pradaxa for a fib which was stopped 3 days ago. Her heparin drip was stopped this am for her procedure. She is chronically on prednisone for RA. She denies abdominal pain. She has some chronic diarrhea but has not previously noted blood. She denies prior PUD. No EGD or co lonoscopy in the past. No FH colon cancer. [facility] Medical History Ambulatory dysfunction (Inactive) Atrial fibrillation (Chronic) Diabetes (Chronic) HTN (hypertension) (Chronic) Hx of hyperlipidemia (Acute) Obesity, morbid, BMI 40.0-49.9 (Inactive) Obstructive sleep apnea (Suspected) Pulmonary hypertension (Inactive) mild Rheumatoid arteritis (Acute) Rheumatoid arthritis (Inactive) Surgical History History of hysterectomy (Chronic) Hx of cholecystectomy (Chronic) Social History Smoking/Tobacco Use Status: Former Tobacco Use Drug use: Never Additional Social history: Lives with her Valeriy on [address] in [facility], moving to handicapped apartment They moved up here from [place] to be near their daughter. 2 sons in [facility]. 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 Exam Narrative Exam Narrative: Alert Slightly tachy Abdomen obese, soft, nontender Results Last Vital Signs Temp 98.6 F 11/11/19 04:00 Pulse 118 H 11/11/19 05:31 Resp 20 11/11/19 05:31 BP 114/59 L 11/11/19 05:31 Pulse Ox 96 11/11/19 05:31 Labs Result diagrams: 11/11/19 09:40 11/11/19 06:15 Labs: Laboratory Results - last 24 hr 11/10/19 11/10/19 11/11/19 14:16 22:25 06:15 WBC RBC Hgb Hct MCV MCH MCHC RDW Plt Count MPV Immature Gran % Neutrophils % Lymphocytes % Monocytes % Eosinophils % Basophils % Absolute Neutrophils Absolute Lymphocytes Absolute Monocytes Absolute Eosinophils Absolute Basophils APTT 80.6 H* 47.3 H D Sodium 131 L Potassium 4.6 D Chloride 101 Carbon Dioxide 22.5 Anion Gap 7.5 BUN 28 H Creatinine 1.50 H Estimated GFR/1.73 m2 33.94 Glucose 297 H D Calcium 7.4 L Crossmatch 11/11/19 11/11/19 06:15 09:23 WBC 8.18 RBC 3.14 L Hgb 10.1 L Hct 30.5 L MCV 97.1 H MCH 32.2 MCHC 33.1 RDW 13.9 Plt Count 177 MPV 10.6 Immature Gran % 0.9 Neutrophils % 85.7 Lymphocytes % 5.4 Monocytes % 7.8 Eosinophils % 0.1 Basophils % 0.1 Absolute Neutrophils 7.01 H Absolute Lymphocytes 0.44 L Absolute Monocytes 0.64 Absolute Eosinophils 0.01 Absolute Basophils 0.01 APTT Sodium Potassium Chloride Carbon Dioxide Anion Gap BUN Creatinine Estimated GFR/1.73 m2 Glucose Calcium Crossmatch See Detail
[2019-11-11 09:55] LABS: HCT 27.9 % (36.0-46.0); HGB 9.1 g/dL (11.2-15.7)
[2019-11-11 10:18] LABS: PTT Activated 27.9 sec (21.0-31.4)
[2019-11-11] MEDS: Insulin Glargine 300 UNITS/3 ML PEN 45 UNITS SC ×2 (10:51→21:25)
[2019-11-11] MEDS: Pantoprazole 40 MG VIAL IVP ×2 (10:52→21:26)
[2019-11-11] MEDS: diphenhydrAMINE 50 MG/ML VIAL 25 MG IVP ×2 (12:19→19:38)
[2019-11-11] MEDS: diazePAM 10 MG/2 ML SYR 2 MG IVP (12:19)
[2019-11-11] MEDS: ACETAMINOPHEN 1,000 MG/100 ML BTL 400 MG IVPB ×2 (12:19→19:42)
[2019-11-11] MEDS: Normal Saline 500 ML IV (12:59)
--- NOTE | 2019-11-11 13:12 | STOM_PTH ---
PATIENT: Elizabeth Chester LOC: U#:[id number] AGE/SX: 74/F ROOM: RE11/09/[address]: Rey Rudolph : 1945 BED: A DIS: 11/14/2019 SPEC #: [id number] RECD: 11/11/19 13:19 STATUS: SD REQ #: [id number] CARROL: 11/11/19 13:[address]: Rey Rudolph DEPT: Surgical Specimen RECD BY: Nathaly Marks ENTERED: 11/11/19 13:20 SP TYPE: STOMACH OTHR DR: MD Briana Roberts Dana Tissues: 1 - STOMACH BIOPSY Procedures: GROSS AND MICRO LEVEL 4 Comments: [id number]
--- NOTE | 2019-11-11 13:18 | W.PM.ENDDOP ---
Date of service: 11/11/19 Time of Service: 13:18 Endoscopy Report DATE OF PROCEDURE: 11/11/19 PRE-OP DIAGNOSIS: GI bleed POST-OP DIAGNOSIS: other (Duodenal ulcers) PROCEDURE: EGD with biopsy SURGEON: Ilana Colvin ANESTHESIA: MAC INDICATIONS: This 74 year old woman is admitted with urosepsis. She was on a heparin drip for a fib and developed several maroon stools this morning. PROCEDURE DESCRIPTION: The patient was placed in the left lateral position and propofol titrated to sedation. The endoscope was advanced into the esophagus under direct visualization. The scope was passed through the stomach and into the duodenum. No blood was present. There is a chronic appearing ulcer in the second portion of the duodenum with no clot or visible vessel. Several other shallow ulcerations are noted. In the distal duodenal bulb, a large ulcer with a clot attached was present. No active bleeding or visible vessel noted. The stomach itself was normal including on retroflexed view of the fundus and lesser curvature. Routine biopsies were taken from the gastric antrum to evaluate for H pylori. The GE junction was inspected and showed no significant stricture, inflammation, masses or Barretts. The scope was slowly withdrawn with no other esophageal lesions found. The patient tolerated the procedure well and was stable to recovery.
[2019-11-11 16:21] LABS: HCT 26.9 % (36.0-46.0); HGB 8.7 g/dL (11.2-15.7)
[2019-11-11] MEDS: Sucralfate 1 GM TAB PO ×2 (16:28→21:29)
[2019-11-11] MEDS: Normal Saline 1,000 ML 50 ML IV (19:42)
[2019-11-12] VITALS (17 sets, daily range): BP systolic 102–169; BP diastolic 56–135; PULSE 94–126; RESP 14–20; TEMP 36.3–37.1; O2SAT 94–98
[2019-11-12] MEDS: Insulin Aspart 300 UNITS/3 ML PEN SC ×7 (00:42→21:59)
[2019-11-12] MEDS: Metoprolol 50 MG TAB PO ×2 (00:44→07:56)
[2019-11-12] MEDS: Hydrocortisone SOD SUC. 100 MG VIAL 50 MG IVP ×3 (01:24→17:43)
[2019-11-12] MEDS: Insulin NPH-Human 300 UNITS/3 ML PEN 25 UNIT SC ×3 (01:24→17:44)
[2019-11-12 02:07] LABS: HCT 28.8 % (36.0-46.0); HGB 9.6 g/dL (11.2-15.7)
[2019-11-12] MEDS: MEROPENEM 1 GM in Normal Saline 100 ML IVPB (05:00)
[2019-11-12 07:02] LABS: Abs Immature Grans 0.14 10^3/uL (0.0-0.06); Absolute Basophil Count 0.02 10^3/uL (0.0-0.2); Absolute Eosinophil Count 0.02 10^3/uL (0.0-0.7); Absolute Lymphocyte Count 0.98 10^3/uL (1.2-3.4); Absolute Monocyte Count 0.93 10^3/uL (0.1-0.8); Absolute Neutrophil Count 7.56 10^3/uL (1.2-6.7); Basophils % 0.2; Eosinophils % 0.2; HCT 28.3 % (36.0-46.0); HGB 9.3 g/dL (11.2-15.7); Immature Grans % 1.5; Lymphocytes % 10.2; MCHC 32.9 % (32.0-36.0); MCV 94.3 fL (80-95); MPV 10.5 fL (8.0-11.0); Monocytes % 9.6; Neutrophils % 78.3; Platelet Count 194 10^3/uL (130-400); RDW 15.4 % (11.7-14.6); RDW-SD 53.3 fL; WBC 9.65 10^3/uL (4.4-10.8)
--- NOTE | 2019-11-12 07:07 | W.PM.PROGNOT ---
Date of Service Date of service: 11/12/19 Time of Service: 07:26 Assessment and Plan Assessment and plan (1) Obstructive uropathy: Status: Acute Assessment and plan: Now that her stent has been placed and her kidney adequately drained, we can take our time in addressing her kidney and ureteral stones. She will ultimately need flexible ureteroscopy with holmium laser lithotripsy of her stones once all of her medical issues have been optimized. We can leave a ureteral stent in place up to 3 months, as she improves clinically, she would be able to go home and come back for her stone procedure as an outpatient. Her stone procedure will take 1 to 2 hours under general anesthetic, so I will check with our anesthesia providers to make sure it is appropriate that her surgery be done locally. Otherwise, we will make a referral for her procedure to be done at a tertiary care center. (2) Sepsis: Status: Resolved Qualifiers: Acute renal failure type: unspecified Sepsis acute organ dysfunction status: with acute organ dysfunction Sepsis type: sepsis due to unspecified organism Severe sepsis acute organ dysfunction type: acute renal failure Subjective Subjective Interval history since last seen: She complains of fatigue and persistent diarrhea. She is unsure if her diarrhea is bloody. She is hungry and asking for something to eat. Exam Narrative Exam Narrative: She does not appear septic or toxic. Her vital signs are documented elsewhere Her urine is clear (much more clear than yesterday postoperatively) She is awake and alert Her morning labs are pending Objective Objective Clinical Data: Abnormal lab results 11/11/19 11/11/19 11/11/19 Range/Units 09:40 09:40 15:55 Hgb 9.1 L 8.7 L (11.2-15.7) g/dL Hct 27.9 L 26.9 L (36.0-46.0) % Crossmatch See Detail 11/12/19 Range/Units 01:30 Hgb 9.6 L (11.2-15.7) g/dL Hct 28.8 L (36.0-46.0) % Crossmatch Vital Signs Temperature 36.7 C 11/12/19 04:13 Temperature Source Temporal Artery Scan 11/12/19 04:13 Pulse 120 H 11/12/19 06:16 Pulse 119 H 11/12/19 06:16 Respiratory Rate 17 11/12/19 06:16 Respiratory Effort 11/12/19 04:13 Respiratory Depth Normal 11/12/19 04:13 Respiratory Pattern Normal 11/12/19 04:13 Blood Pressure 129/70 11/12/19 06:16 Blood Pressure Mean 83 11/12/19 06:16 Blood Pressure Position Supine 11/12/19 04:13 Pulse Oximetry 96 11/12/19 06:16 Oxygen Delivery Method Room Air 11/12/19 04:13 Oxygen Flow Rate 0 11/12/19 04:13 Pain Level 0 11/12/19 04:13 Intake & Output 11/11/19 11/11/19 11/12/19 11:59 23:59 11:59 Intake Total 1416.250 / 3390.833 1974.583 / 3390.833 Output Total 1400 / 2175 775 / 2175 1200 / 1200 Balance 16.250 / 5766.506 7982.583 / 1215.833 -1200 / -1200 Weight 152.9 kg Intake: IV 1116.250 / 2270.833 1154.583 / 2270.833 Oral 300 / 520 220 / 520 Blood Product 600 / 600 Rbc Leuko Reduced Unit 250 / 250 [id number] Rbc Leuko Reduced Unit 350 / 350 [id number] Output: Urine 1250 / 1925 675 / 1925 1200 / 1200 Stool 150 / 250 100 / 250 Other: Urine Color Dark Red Dark Anna Yellow Urine Appearance Clear Cloudy Sediment Mucous Threads Comment Pt returned from OR; rt uretal stent placement alfred in place. alfred in place. Stool Occult Blood Positive Positive Positive Stool Size Large Small Moderate Stool Characteristics Liquid Brown Liquid Bloody Bloody Laboratory Results WBC 8.18 10^3/uL (4.4-10.8) 11/11/19 06:15 RBC 3.14 10^6/uL (3.93-5.22) L 11/11/19 06:15 Hgb 9.6 g/dL (11.2-15.7) L 11/12/19 01:30 Hct 28.8 % (36.0-46.0) L 11/12/19 01:30 MCV 97.1 fL (80-95) H 11/11/19 06:15 MCH 32.2 pg (27.0-33.0) 11/11/19 06:15 MCHC 33.1 % (32.0-36.0) 11/11/19 06:15 RDW 13.9 % (11.7-14.6) 11/11/19 06:15 Plt Count 177 10^3/uL (130-400) 11/11/19 06:15 MPV 10.6 fL (8.0-11.0) 11/11/19 06:15 Immature Gran % 0.9 11/11/19 06:15 Neutrophils % 85.7 11/11/19 06:15 Lymphocytes % 5.4 11/11/19 06:15 Monocytes % 7.8 11/11/19 06:15 Eosinophils % 0.1 11/11/19 06:15 Basophils % 0.1 11/11/19 06:15 Absolute Neutrophils 7.01 10^3/uL (1.2-6.7) H 11/11/19 06:15 Absolute Lymphocytes 0.44 10^3/uL (1.2-3.4) L 11/11/19 06:15 Absolute Monocytes 0.64 10^3/uL (0.1-0.8) 11/11/19 06:15 Absolute Eosinophils 0.01 10^3/uL (0.0-0.7) 11/11/19 06:15 Absolute Basophils 0.01 10^3/uL (0.0-0.2) 11/11/19 06:15 PT 12.3 sec (9.3-11.0) H 11/09/19 08:55 INR 1.2 (0.9-1.1) H 11/09/19 08:55 APTT 27.9 sec (21.0-31.4) D 11/11/19 09:40 Sodium 131 mmol/L (136-145) L 11/11/19 06:15 Potassium 4.6 mmol/L (3.5-5.1) D 11/11/19 06:15 Chloride 101 mmol/L (98-107) 11/11/19 06:15 Carbon Dioxide 22.5 mmol/L (21.0-32.0) 11/11/19 06:15 Anion Gap 7.5 mmol/L (3-11) 11/11/19 06:15 BUN 28 mg/dL (7-18) H 11/11/19 06:15 Creatinine 1.50 mg/dL (0.55-1.02) H 11/11/19 06:15 Estimated GFR/1.73 m2 33.94 (mL/min/1.73m2) 11/11/19 06:15 Glucose 297 mg/dL (74-106) H D 11/11/19 06:15 Lactate 1.5 mmol/L (0.6-1.4) H 11/10/19 06:07 Calcium 7.4 mg/dL (8.5-10.1) L 11/11/19 06:15 Magnesium 2.0 mg/dL (1.8-2.4) 11/10/19 06:07 Total Bilirubin 0.8 mg/dL (0.2-1.0) 11/09/19 08:55 AST 44 U/L (15-37) H 11/09/19 08:55 ALT 41 U/L (14-59) 11/09/19 08:55 Alkaline Phosphatase 127 U/L (46-116) H 11/09/19 08:55 Troponin I < 0.05 ng/mL (<0.06) 11/09/19 17:30 Total Protein 6.8 g/dL (6.4-8.2) 11/09/19 08:55 Albumin 2.8 g/dL (3.4-5.0) L 11/09/19 08:55 Lipase 46 U/L (73-393) 11/09/19 08:55 Procalcitonin 23.6 ng/mL 11/09/19 13:00 TSH 1.87 uIU/mL (0.36-3.74) 11/09/19 08:55 Urine Color Yellow (Yellow) 11/09/19 09:27 Urine Clarity Sl cloudy (Clear) 11/09/19 09:27 Urine pH 5.5 (5-8) 11/09/19 09:27 Ur Specific [place] 1.020 (1.005-1.025) 11/09/19 09:27 Urine Protein Trace mg/dL (Negative) H 11/09/19 09:27 Urine Ketones 15 mg/dL (Negative) H 11/09/19 09:27 Urine Blood Large (Negative) H 11/09/19 09:27 Urine Nitrite Negative (Negative) 11/09/19 09:27 Urine Bilirubin Negative (Negative) 11/09/19 09:27 Urine Urobilinogen 0.2 EU/dL (Up TO 0.2) 11/09/19 09:27 Ur Leukocyte Esterase Small (Negative) H 11/09/19 09:27 Urine RBC 20-50 HPF (0-2) H 11/09/19 09:27 Urine WBC 10-20 HPF (0-5) H 11/09/19 09:27 Ur Epithelial Cells Few HPF (Negative) 11/09/19 09:27 Urine Crystals Negative HPF (Negative) 11/09/19 09:27 Urine Bacteria Few HPF (Negative) 11/09/19 09:27 Urine Casts Negative LPF (Negative) 11/09/19 09:27 Urine Mucus Negative (Negative) 11/09/19 09:27 Ur Culture Indicated? Yes 11/09/19 09:27 Urine Glucose 500 mg/dL (Negative) H 11/09/19 09:27 COVID-19 PCR Negative (Negative) 11/09/19 12:39 Nasopharyn COVID-19 PCR Not Applicable 11/09/19 12:39 Ref Test Perform Site [facility] lab 11/09/19 12:39 Patient ABO/Rh O Positive 11/11/19 09:40 Antibody Screen Negative 11/11/19 09:40 Crossmatch See Detail 11/11/19 09:40
[2019-11-12 07:20] LABS: Anion Gap 7.7 mmol/L (3-11); BUN 25 mg/dL (7-18); CO2 23.3 mmol/L (21.0-32.0); CREATININE 0.95 mg/dL (0.55-1.02); Calcium 7.4 mg/dL (8.5-10.1); Chloride 106 mmol/L (98-107); Glucose 144 mg/dL (74-106); Potassium 4.2 mmol/L (3.5-5.1); Sodium 137 mmol/L (136-145)
[2019-11-12 07:38] LABS: Diff Comment Agrees w/ Instrument
--- NOTE | 2019-11-12 07:53 | PDOC.CMPRO ---
- If Service Date Differs Date of service: 11/12/19 Time of Service: 07:53 Care Management Progress Note S/O:Ruba remains in the ICU, pallaitive did meet with her today and reviewed her goals of care. Palliative will continue to follow up as outpatient for home visits. Ruba's states he wants her to be home with him when she is ready. A:Ruba is a 74 year old female admitted with UTI, hyperglycemia and kindey stones P:Ruba is currently receiving care in the ICU. She will be discharged when medically ready. She will be discharged home with new referral to home health for nursing, PT, OT and [employer], requiring a face to face for services. Ruba will continue with palliative as outpatient. CM to continue to assess for discharge needs and provide coordination.
[2019-11-12] MEDS: Multivitamin TAB 1 TAB PO (07:56)
[2019-11-12] MEDS: Tamsulosin 0.4 MG CAPCR PO (07:56)
[2019-11-12] MEDS: Sucralfate 1 GM TAB PO ×4 (07:56→21:54)
[2019-11-12] MEDS: buPROPion-CR 100 MG TABCR PO (07:56)
[2019-11-12] MEDS: dilTIAZem 60 MG TAB PO ×2 (07:56→14:27)
[2019-11-12] MEDS: DULoxetine 30 MG CAP 60 MG PO (07:56)
[2019-11-12] MEDS: Pantoprazole 40 MG VIAL IVP (10:13)
[2019-11-12] MEDS: Insulin Glargine 300 UNITS/3 ML PEN 45 UNITS SC ×2 (10:13→21:56)
[2019-11-12] MEDS: Normal Saline Flush 10 ML SYR IVP ×3 (10:15→17:47)
--- NOTE | 2019-11-12 10:40 | PGE_ITS ---
Date of Service Date of service: 11/12/19 Time of Service: 10:40 Assessment and Plan Assessment and plan (1) Gastrointestinal bleeding: Status: Acute Assessment and plan: No further bloody bowel movements. Stools ago to be heme positive for a while. She is currently on Protonix and Carafate. The present time she is hemodynamically stable and can be transferred to the [place]/surgical floor with continued telemetry monitoring for her atrial fibrillation. She is to remain off of anticoagulation for the next several weeks until she follows up with surgery and can be rescoped. Present time there is no need for further transfusion. Qualifiers: GI bleed type/associated pathology: unspecified gastrointestinal hemorrhage type Qualified Code(s): K92.2 - Gastrointestinal hemorrhage, unspecified (2) UTI (urinary tract infection): Status: Acute Assessment and plan: Blood cultures have shown no growth. Urine culture only grew lactobacillus which is not the offending organism that caused her sepsis. At this time she is can be switched from meropenem to Levaquin 750 mg p.o. daily for 10 more days. Qualifiers: Hematuria presence: with hematuria Urinary tract infection type: site unspecified Qualified Code(s): N39.0 - Urinary tract infection, site not specified; R31.9 - Hematuria, unspecified (3) Obstructive uropathy: Status: Acute Assessment and plan: Patient is status post cystoscopy and ureteroscopy with right ureteral stent placement by Dr. Fernandez November 11, 2019. Patient will follow-up with Dr. Fernandez as an outpatient to undergo holmium laser ablation and removal of her stent. (4) Ureterolithiasis: Status: Acute Assessment and plan: As above (5) Acute renal failure: Status: Resolved Assessment and plan: Supportive care as above. Continue to monitor daily BMP and urine output Qualifiers: Acute renal failure type: unspecified Qualified Code(s): N17.9 - Acute kidney failure, unspecified (6) Atrial fibrillation with RVR: Status: Acute Assessment and plan: We will transition her from immediate acting Lopressor and diltiazem to the long-acting forms.. Continue with telemetry monitoring and transfer to medical/surgical floor. (7) Diarrhea: Status: Acute Assessment and plan: C. difficile stool was negative for toxin but positive for antigen therefore PCR was sent. Will empirically place on Flagyl pending results. Qualifiers: Diarrhea type: presumed infectious Qualified Code(s): R19.7 - Diarrhea, unspecified (8) IDDM (insulin dependent diabetes mellitus): Status: Chronic Assessment and plan: Resume basal bolus insulin and advance her diet. Continue with NPH while she is on hydrocortisone. Initially need 1 more day of stress dose hydrocortisone then she can resume her regular dose of prednisone. 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 Fernandez. Patient then later had an EGD by Dr. Ilana Whatley that demonstrated a duodenal ulcer that is not actively bleeding. Stools are still heme positive but no warren bloody diarrhea today. I was mistaken about her C. difficile study I was under the impression was negative. However upon review of her studies her C. difficile toxin was negative but antigen was positive therefore is been sent for PCR study. Pending the results I will put her on Flagyl in addition to her meropenem for her urosepsis. Blood cultures have been no growth. Her urine culture only grew lactobacillus. I discussed her case with Dr. Andres Fernandez who recommends switching her to Levaquin 750 mg daily for 10 more days. Her previous urine cultures have always grown a sensitive E. coli. Patient is hemodynamically stable and ready for transfer to the medical/surgical floor. We will continue with telemetry monitoring for her atrial fibrillation. Exam Narrative Exam Narrative: Obese female lying in bed who is alert and oriented person place time circumstance. Patient had a large bloody bowel movement on arrival back from postanesthesia care unit. Lungs are clear to auscultation. Heart is tachycardic irregularly irregular heart rate in the low 100s. Abdomen is obese soft mild tenderness without guarding or rebound tenderness. She has hyperactive bowel sounds. Objective Objective Clinical Data: Abnormal lab results 11/11/19 11/11/19 11/12/19 Range/Units 09:40 15:55 01:30 RBC (3.93-5.22) 10^6/uL Hgb 8.7 L 9.6 L (11.2-15.7) g/dL Hct 26.9 L 28.8 L (36.0-46.0) % RDW (11.7-14.6) % Absolute Neutrophils (1.2-6.7) 10^3/uL Absolute Lymphocytes (1.2-3.4) 10^3/uL Absolute Monocytes (0.1-0.8) 10^3/uL BUN (7-18) mg/dL Glucose (74-106) mg/dL Calcium (8.5-10.1) mg/dL Crossmatch See Detail 11/12/19 11/12/19 Range/Units 05:35 06:10 RBC 3.00 L (3.93-5.22) 10^6/uL Hgb 9.3 L (11.2-15.7) g/dL Hct 28.3 L (36.0-46.0) % RDW 15.4 H (11.7-14.6) % Absolute Neutrophils 7.56 H (1.2-6.7) 10^3/uL Absolute Lymphocytes 0.98 L (1.2-3.4) 10^3/uL Absolute Monocytes 0.93 H (0.1-0.8) 10^3/uL BUN 25 H (7-18) mg/dL Glucose 144 H D (74-106) mg/dL Calcium 7.4 L (8.5-10.1) mg/dL Crossmatch Vital Signs Temperature 37.1 C 11/12/19 07:30 Temperature Source Temporal Artery Scan 11/12/19 04:13 Pulse 107 H 11/12/19 08:29 Pulse 123 H 11/12/19 08:29 Respiratory Rate 20 11/12/19 08:29 Respiratory Effort 11/12/19 07:30 Respiratory Depth Normal 11/12/19 07:30 Respiratory Pattern Normal 11/12/19 07:30 Blood Pressure 125/83 11/12/19 08:29 Blood Pressure Mean 92 11/12/19 08:29 Blood Pressure Position Supine 11/12/19 07:30 Pulse Oximetry 98 11/12/19 08:00 Oxygen Delivery Method Room Air 11/12/19 07:30 Oxygen Flow Rate 0 11/12/19 07:30 Pain Level 0 11/12/19 07:30 Intake & Output 11/11/19 11/11/19 11/12/19 11:59 23:59 11:59 Intake Total 1416.250 / 3390.833 1974.583 / 3390.833 Output Total 1400 / 2175 775 / 2175 1550 / 1550 Balance 16.250 / 0251.354 7367.583 / 1215.833 -1550 / -1550 Weight 152.9 kg Intake: IV 1116.250 / 2270.833 1154.583 / 2270.833 Oral 300 / 520 220 / 520 Blood Product 600 / 600 Rbc Leuko Reduced Unit 250 / 250 [id number] Rbc Leuko Reduced Unit 350 / 350 [id number] Output: Urine 1250 / 1925 675 / 1925 1550 / 1550 Stool 150 / 250 100 / 250 Other: Urine Color Dark Red Dark Anna Yellow Straw Urine Appearance Clear Cloudy Clear Comment Pt returned from OR; rt uretal stent placement alfred in place. alfred in place draining yellow urine. Stool Occult Blood Positive Positive Positive Stool Size Large Small Moderate Stool Characteristics Liquid Brown Liquid Bloody Brown Laboratory Results WBC 9.65 10^3/uL (4.4-10.8) 11/12/19 06:10 RBC 3.00 10^6/uL (3.93-5.22) L 11/12/19 06:10 Hgb 9.3 g/dL (11.2-15.7) L 11/12/19 06:10 Hct 28.3 % (36.0-46.0) L 11/12/19 06:10 MCV 94.3 fL (80-95) 11/12/19 06:10 MCH 31.0 pg (27.0-33.0) 11/12/19 06:10 MCHC 32.9 % (32.0-36.0) 11/12/19 06:10 RDW 15.4 % (11.7-14.6) H 11/12/19 06:10 Plt Count 194 10^3/uL (130-400) 11/12/19 06:10 MPV 10.5 fL (8.0-11.0) 11/12/19 06:10 Immature Gran % 1.5 11/12/19 06:10 Neutrophils % 78.3 11/12/19 06:10 Lymphocytes % 10.2 11/12/19 06:10 Monocytes % 9.6 11/12/19 06:10 Eosinophils % 0.2 11/12/19 06:10 Basophils % 0.2 11/12/19 06:10 Absolute Neutrophils 7.56 10^3/uL (1.2-6.7) H 11/12/19 06:10 Absolute Lymphocytes 0.98 10^3/uL (1.2-3.4) L 11/12/19 06:10 Absolute Monocytes 0.93 10^3/uL (0.1-0.8) H 11/12/19 06:10 Absolute Eosinophils 0.02 10^3/uL (0.0-0.7) 11/12/19 06:10 Absolute Basophils 0.02 10^3/uL (0.0-0.2) 11/12/19 06:10 PT 12.3 sec (9.3-11.0) H 11/09/19 08:55 INR 1.2 (0.9-1.1) H 11/09/19 08:55 APTT 27.9 sec (21.0-31.4) D 11/11/19 09:40 Sodium 137 mmol/L (136-145) 11/12/19 05:35 Potassium 4.2 mmol/L (3.5-5.1) 11/12/19 05:35 Chloride 106 mmol/L (98-107) 11/12/19 05:35 Carbon Dioxide 23.3 mmol/L (21.0-32.0) 11/12/19 05:35 Anion Gap 7.7 mmol/L (3-11) 11/12/19 05:35 BUN 25 mg/dL (7-18) H 11/12/19 05:35 Creatinine 0.95 mg/dL (0.55-1.02) D 11/12/19 05:35 Estimated GFR/1.73 m2 57.50 (mL/min/1.73m2) 11/12/19 05:35 Glucose 144 mg/dL (74-106) H D 11/12/19 05:35 Lactate 1.5 mmol/L (0.6-1.4) H 11/10/19 06:07 Calcium 7.4 mg/dL (8.5-10.1) L 11/12/19 05:35 Magnesium 2.0 mg/dL (1.8-2.4) 11/10/19 06:07 Total Bilirubin 0.8 mg/dL (0.2-1.0) 11/09/19 08:55 AST 44 U/L (15-37) H 11/09/19 08:55 ALT 41 U/L (14-59) 11/09/19 08:55 Alkaline Phosphatase 127 U/L (46-116) H 11/09/19 08:55 Troponin I < 0.05 ng/mL (<0.06) 11/09/19 17:30 Total Protein 6.8 g/dL (6.4-8.2) 11/09/19 08:55 Albumin 2.8 g/dL (3.4-5.0) L 11/09/19 08:55 Lipase 46 U/L (73-393) 11/09/19 08:55 Procalcitonin 23.6 ng/mL 11/09/19 13:00 TSH 1.87 uIU/mL (0.36-3.74) 11/09/19 08:55 Urine Color Yellow (Yellow) 11/09/19 09:27 Urine Clarity Sl cloudy (Clear) 11/09/19 09:27 Urine pH 5.5 (5-8) 11/09/19 09:27 Ur Specific [place] 1.020 (1.005-1.025) 11/09/19 09:27 Urine Protein Trace mg/dL (Negative) H 11/09/19 09:27 Urine Ketones 15 mg/dL (Negative) H 11/09/19 09:27 Urine Blood Large (Negative) H 11/09/19 09:27 Urine Nitrite Negative (Negative) 11/09/19 09:27 Urine Bilirubin Negative (Negative) 11/09/19 09:27 Urine Urobilinogen 0.2 EU/dL (Up TO 0.2) 11/09/19 09:27 Ur Leukocyte Esterase Small (Negative) H 11/09/19 09:27 Urine RBC 20-50 HPF (0-2) H 11/09/19 09:27 Urine WBC 10-20 HPF (0-5) H 11/09/19 09:27 Ur Epithelial Cells Few HPF (Negative) 07/28/20 09:27 Urine Crystals Negative HPF (Negative) 11/09/19 09:27 Urine Bacteria Few HPF (Negative) 11/09/19 09:27 Urine Casts Negative LPF (Negative) 11/09/19 09:27 Urine Mucus Negative (Negative) 11/09/19 09:27 Ur Culture Indicated? Yes 11/09/19 09:27 Urine Glucose 500 mg/dL (Negative) H 11/09/19 09:27 COVID-19 PCR Negative (Negative) 11/09/19 12:39 Nasopharyn COVID-19 PCR Not Applicable 11/09/19 12:39 Ref Test Perform Site [facility] lab 11/09/19 12:39 Patient ABO/Rh O Positive 11/11/19 09:40 Antibody Screen Negative 11/11/19 09:40 Crossmatch See Detail 11/11/19 09:40
[2019-11-12] MEDS: Nystatin POWDER 15 GM JAR TP ×2 (10:49→20:01)
[2019-11-12 11:16] LABS: Campylobacter PCR Negative (Negative); Salmonella PCR Negative (Negative); Shiga Toxin PCR Negative (Negative); Shigella/Enteroinvasive Ecoli Negative (Negative)
[2019-11-12] MEDS: levoFLOXacin 500 MG, levoFLOXacin 250 MG 750 MG PO (11:20)
--- NOTE | 2019-11-12 11:21 | W.INDIABCONS ---
Date of service: 11/12/19 Time of Service: 11:21 Diabetes Inpatient Consult DESCRIPTION/ASSESSMENT: 74 year old female admitted to ICU with obstructive uropathy, acute renal failure, s/p lap chol with DM2, morbid obesity (BMI 51), wheel chair bound. Visited today to provide inpatient diabetes counseling for optimal blood sugar control. Labs: blood sugars ranging from 144-284 mg/dl, BUN improving, no recent A1C. Elizabeth reports that she does not take her blood sugars at home due to bruising and pain. Wants information on CGM. Did not want to discuss her diet, states that she knows what to eat. Estimated needs: [id number] kcal, 70-80 g protein. Following CHO/HH diet with excellent intake (>75% of meals). Skin intact, dentition adequate for current diet. INTERVENTION: Provided education on DM including Hyper/hypoglycemia s/s with action plan for each scenario. Definition and types of CHO with examples, CHO counting, DASH diet materials, DM meal planning and label reading literature. Provided a blood sugar and food record chart and materials to reiterate CHO counting techniques. Reviewed desirable BG levels with patient with food choices and portions for optimal outcomes. Provided contact information for this RD and encouraged to call with any f/u questions r/t to DM self management. CDM from kitchen has been helping to count CHO's and achieve intake of ~65g/CHO per meal period. PLAN: Will refer to my coworker Soo Rosado- he will provide information on CGM Continue current meal plan Elizabeth will follow up with outpatient diabetes program once discharged Time Spent in Nutritional Counseling and Treatment: 15 min spent face to face
[2019-11-12] MEDS: Metoprolol CR 50 MG TABCR 150 MG PO (11:25)
[2019-11-12 11:40] LABS: C Difficile PCR Positive (Negative)
--- NOTE | 2019-11-12 13:44 | PCNE_ITS ---
Date of service: 11/12/19 Time of Service: 13:30 History of Present Illness Narrative: Madelaine is a very pleasant 74 year old female with a past medical history significant for type 2 diabetes mellitus, on insulin, nephrolithiasis and chronic atrial fibrillation, rheumatoid arthritis, on chronic prednisone as well as Celebrex and Cymbalta, obstructive sleep apnea, and atrial fibrillation, on Pradaxa for anticoagulation. She presented to emergency department with urosepsis and has since had a ureteral stent placed by Dr. Fernandez. She was also noted to have bloody stools and was found to have a duodenal ulcer on EGD that was not actively bleeding. She is also noted to be positive for C-diff colitis. She has received blood and her overall status has improved. Palliative care was consulted to establish care and advance care planning and goals of care. Madelaine reports that she is feeling much better today. Her diarrhea has slowed down, she still has heme + stools, less blood visualized. She is c-diff + Her abdominal pain has resolved. Denies nausea/vomiting. She has SOB interm ittently, especially with activity at baseline. Denies CP/pressure, +palpitations. She has RA-related pain, she was taking celebrex and cymbalta prior to her hospitalization. She is interested in continuous glucose monitor for her diabetes, she has discussed this with the hardware supplies sales representative. Her , Valeriy, is primary caregiver. She states that they take care of each other. She is wheelchair bound, she gets in and out of her wheelchair independently. She can transfer herself to her recliner into her chair. She has a hospital bed at home. May have 1 dog and 2 cats. Goals: Her biggest goal is to live, she was very ill during this hospitalization and was worried that she might . Hopes to stay home as long as possible, lives in a handicap accessible apartment. She would consider a long-term but Valeriy said she will never go to a long-term. She would consider living with her daughter but Valeriy said they are not doing that either. He does not get along with her daughter, Zahida's . She wants to get her apartment organized. They downsized drastically when they moved into the apartment. We briefly discussed CODE STATUS, Valeriy states, we want to keep her alive no matter what. Madelaine did not comment. She is overall very happy. She and Valeriy have been for over 40 years. She enjoys reading on her anisha. She loves to read. 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 She was originally from [place]. They moved to [place] to be near her daughter so that she could help them more. Their daughter lives in [facility]. Zahida helps with shopping and cleaning and what ever else they need. Neighbors help as well. They live in [facility] also, in an apartment complex. Her had 5 kids, his oldest son . They have suffered a lot of loss of family over the last several years. Assessment and Plan Assessment and plan (1) C. difficile colitis: Status: Acute (2) Duodenal ulcer: Status: Acute (3) Gastrointestinal bleeding: Status: Acute Qualifiers: GI bleed type/associated pathology: unspecified gastrointestinal hemorrhage type Qualified Code(s): K92.2 - Gastrointestinal hemorrhage, unspecified (4) Hyperglycemia due to type 1 diabetes mellitus: Status: Acute (5) Acute renal failure: Status: Resolved Qualifiers: Acute renal failure type: unspecified Qualified Code(s): N17.9 - Acute kidney failure, unspecified (6) Obstructive uropathy: Status: Acute (7) Sepsis: Status: Resolved Qualifiers: Sepsis type: sepsis due to unspecified organism Sepsis acute organ dysfunction status: with acute organ dysfunction Severe sepsis acute organ dysfunction type: acute renal failure Acute renal failure type: unspecified (8) UTI (urinary tract infection): Status: Acute Qualifiers: Urinary tract infection type: site unspecified Hematuria presence: with hematuria Qualified Code(s): N39.0 - Urinary tract infection, site not specified; R31.9 - Hematuria, unspecified (9) Obstructive sleep apnea: Status: Suspected (10) Atrial fibrillation with RVR: Status: Acute (11) Palliative care patient: Status: Acute Assessment and plan: Madelaine's condition is overall improving. She remains a full code. CODE STATUS was briefly discussed, however, her , Valeriy stated, we want to keep her alive no matter what. Madelaine did not comment on CODE STATUS. This will be an ongoing discussion with palliative care. At this point, they are planning for her to go back to their apartment with Valeriy. They are well equipped with a hospital bed and wheelchair in their apartment. Valeriy does not want her in a long-term, although Madelaine might be open to the idea. Madelaine also suggested that she would consider living with her daughter, however, Valeriy states they are not doing that either. Both Madelaine and Valeriy were open to continuing to be followed by palliative care as an outpatient. We will continue to discuss goals of care, advance care planning and CODE STATUS. Follow-up with palliative care after discharge home. She will need a home visit as she is wheelchair-bound and has significant difficulty going out of the home. Review of Systems All systems reviewed & are unremarkable except as noted in HPI and below PFSH Medical History (Updated 11/12/19 @ 16:42 by Jody Salas NP) Ambulatory dysfunction (Inactive) Atrial fibrillation (Chronic) C. difficile colitis (Acute) Diabetes (Chronic) Duodenal ulcer (Acute) HTN (hypertension) (Chronic) Hx of hyperlipidemia (Acute) Obesity, morbid, BMI 40.0-49.9 (Inactive) Obstructive sleep apnea (Suspected) Palliative care patient (Acute) Pulmonary hypertension (Inactive) mild Rheumatoid arteritis (Acute) Rheumatoid arthritis (Inactive) Surgical History History of hysterectomy (Chronic) Hx of cholecystectomy (Chronic) Social History Smoking/Tobacco Use Status: Former Tobacco Use Drug use: Never Additional Social history: Lives with her Valeriy on [facility] in [facility], moving to handicapped apartment They moved up here from [place] to be near their daughter. 2 sons in [facility]. 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 Exam Narrative Exam Narrative: General: alert and oriented, pale, overweight. Lying in bed, smiling and talkative, does not appear to be in any acute distress. HEENT: Normocephalic, atraumatic, pupils equal and round. Neck: Supple. Cardiovascular: Irregularly irregular rhythm, tachycardic. Respiratory: Respirations appear even and unlabored, lung sounds clear on limited anterior and lateral exam. GI: Abdomen is large and round. + Bowel sounds throughout, abdomen is soft, nontender on palpation. Extremities: Pitting edema to bilateral lower extremities, right greater than left. Teds on bilaterally. Results Last Vital Signs Temp 37.1 C 11/12/19 07:30 Pulse 107 H 11/12/19 08:29 Resp 20 11/12/19 08:29 BP 125/83 11/12/19 08:29 Pulse Ox 98 11/12/19 08:00 Labs Result diagrams: 11/12/19 06:10 11/12/19 05:35 Labs: Laboratory Results - last 24 hr 11/11/19 11/11/19 11/11/19 08:00 08:00 09:40 WBC RBC Hgb Hct MCV MCH MCHC RDW Plt Count MPV Immature Gran % Neutrophils % Lymphocytes % Monocytes % Eosinophils % Basophils % Absolute Neutrophils Absolute Lymphocytes Absolute Monocytes Absolute Eosinophils Absolute Basophils Sodium Potassium Chloride Carbon Dioxide Anion Gap BUN Creatinine Estimated GFR/1.73 m2 Glucose Calcium Stool Campylobacter PCR Negative Stl C.difficile Tox PCR Positive A Stool Salmonella PCR Negative Stool Shigella PCR Negative Shiga Toxin (PCR) Negative Patient ABO/Rh O Positive Antibody Screen Negative Crossmatch See Detail 11/11/19 11/12/19 11/12/19 15:55 01:00 01:30 WBC RBC Hgb 8.7 L Cancelled 9.6 L Hct 26.9 L Cancelled 28.8 L MCV MCH MCHC RDW Plt Count MPV Immature Gran % Neutrophils % Lymphocytes % Monocytes % Eosinophils % Basophils % Absolute Neutrophils Absolute Lymphocytes Absolute Monocytes Absolute Eosinophils Absolute Basophils Sodium Potassium Chloride Carbon Dioxide Anion Gap BUN Creatinine Estimated GFR/1.73 m2 Glucose Calcium Stool Campylobacter PCR Stl C.difficile Tox PCR Stool Salmonella PCR Stool Shigella PCR Shiga Toxin (PCR) Patient ABO/Rh Antibody Screen Crossmatch 11/12/19 11/12/19 05:35 06:10 WBC 9.65 RBC 3.00 L Hgb 9.3 L Hct 28.3 L MCV 94.3 MCH 31.0 MCHC 32.9 RDW 15.4 H Plt Count 194 MPV 10.5 Immature Gran % 1.5 Neutrophils % 78.3 Lymphocytes % 10.2 Monocytes % 9.6 Eosinophils % 0.2 Basophils % 0.2 Absolute Neutrophils 7.56 H Absolute Lymphocytes 0.98 L Absolute Monocytes 0.93 H Absolute Eosinophils 0.02 Absolute Basophils 0.02 Sodium 137 Potassium 4.2 Chloride 106 Carbon Dioxide 23.3 Anion Gap 7.7 BUN 25 H Creatinine 0.95 D Estimated GFR/1.73 m2 57.50 Glucose 144 H D Calcium 7.4 L Stool Campylobacter PCR Stl C.difficile Tox PCR Stool Salmonella PCR Stool Shigella PCR Shiga Toxin (PCR) Patient ABO/Rh Antibody Screen Crossmatch
--- NOTE | 2019-11-12 14:46 | W.PM.PROGNOT ---
Date of Service Date of service: 11/12/19 Time of Service: 14:46 Assessment and Plan Assessment and plan (1) Gastrointestinal bleeding: Status: Acute Assessment and plan: Clinically stable Monitor for re-bleeding/follow Hgb Will plan for follow up EGD in a month to re-assess ulcer and make decision regarding resuming the Eliquis Qualifiers: GI bleed type/associated pathology: unspecified gastrointestinal hemorrhage type Qualified Code(s): K92.2 - Gastrointestinal hemorrhage, unspecified Subjective Subjective Interval history since last seen: Feels much better than yesterday. Tolerating PO No abdominal pain Nurse reports brown stool today. Objective Objective Clinical Data: Abnormal lab results 11/11/19 11/11/19 11/11/19 Range/Units 08:00 09:40 15:55 RBC (3.93-5.22) 10^6/uL Hgb 8.7 L (11.2-15.7) g/dL Hct 26.9 L (36.0-46.0) % RDW (11.7-14.6) % Absolute Neutrophils (1.2-6.7) 10^3/uL Absolute Lymphocytes (1.2-3.4) 10^3/uL Absolute Monocytes (0.1-0.8) 10^3/uL BUN (7-18) mg/dL Glucose (74-106) mg/dL Calcium (8.5-10.1) mg/dL Stl C.difficile Tox PCR Positive A (Negative) Crossmatch See Detail 11/12/19 11/12/19 11/12/19 Range/Units 01:30 05:35 06:10 RBC 3.00 L (3.93-5.22) 10^6/uL Hgb 9.6 L 9.3 L (11.2-15.7) g/dL Hct 28.8 L 28.3 L (36.0-46.0) % RDW 15.4 H (11.7-14.6) % Absolute Neutrophils 7.56 H (1.2-6.7) 10^3/uL Absolute Lymphocytes 0.98 L (1.2-3.4) 10^3/uL Absolute Monocytes 0.93 H (0.1-0.8) 10^3/uL BUN 25 H (7-18) mg/dL Glucose 144 H D (74-106) mg/dL Calcium 7.4 L (8.5-10.1) mg/dL Stl C.difficile Tox PCR (Negative) Crossmatch Vital Signs Temperature 98.8 F 11/12/19 07:30 Temperature Source Temporal Artery Scan 11/12/19 04:13 Pulse 107 H 11/12/19 08:29 Pulse 123 H 11/12/19 08:29 Respiratory Rate 20 11/12/19 08:29 Respiratory Effort 11/12/19 07:30 Respiratory Depth Normal 11/12/19 07:30 Respiratory Pattern Normal 11/12/19 07:30 Blood Pressure 125/83 11/12/19 08:29 Blood Pressure Mean 92 11/12/19 08:29 Blood Pressure Position Supine 11/12/19 07:30 Pulse Oximetry 98 11/12/19 08:00 Oxygen Delivery Method Room Air 11/12/19 07:30 Oxygen Flow Rate 0 11/12/19 07:30 Pain Level 0 11/12/19 07:30 Intake & Output 11/11/19 11/12/19 11/12/19 23:59 11:59 23:59 Intake Total 1974.583 / 3390.833 500 / 1300 800 / 1300 Output Total 775 / 2175 1550 / 1550 Balance 1199.583 / 1215.833 -1050 / -250 800 / -250 Intake: IV 1154.583 / 2270.833 100 / 100 Oral 220 / 520 400 / 1200 800 / 1200 Blood Product 600 / 600 Rbc Leuko Reduced Unit 250 / 250 [id number] Rbc Leuko Reduced Unit 350 / 350 [id number] Output: Urine 675 / 1925 1550 / 1550 Stool 100 / 250 Other: Urine Color Dark Anna Yellow Straw Urine Appearance Cloudy Clear Comment alfred in place. alfred in place draining yellow urine. Stool Occult Blood Positive Positive Positive Stool Size Small Moderate Moderate Stool Characteristics Brown Liquid Liquid Brown Brown Laboratory Results WBC 9.65 10^3/uL (4.4-10.8) 11/12/19 06:10 RBC 3.00 10^6/uL (3.93-5.22) L 11/12/19 06:10 Hgb 9.3 g/dL (11.2-15.7) L 11/12/19 06:10 Hct 28.3 % (36.0-46.0) L 11/12/19 06:10 MCV 94.3 fL (80-95) 11/12/19 06:10 MCH 31.0 pg (27.0-33.0) 11/12/19 06:10 MCHC 32.9 % (32.0-36.0) 11/12/19 06:10 RDW 15.4 % (11.7-14.6) H 11/12/19 06:10 Plt Count 194 10^3/uL (130-400) 11/12/19 06:10 MPV 10.5 fL (8.0-11.0) 11/12/19 06:10 Immature Gran % 1.5 11/12/19 06:10 Neutrophils % 78.3 11/12/19 06:10 Lymphocytes % 10.2 11/12/19 06:10 Monocytes % 9.6 11/12/19 06:10 Eosinophils % 0.2 11/12/19 06:10 Basophils % 0.2 11/12/19 06:10 Absolute Neutrophils 7.56 10^3/uL (1.2-6.7) H 11/12/19 06:10 Absolute Lymphocytes 0.98 10^3/uL (1.2-3.4) L 11/12/19 06:10 Absolute Monocytes 0.93 10^3/uL (0.1-0.8) H 11/12/19 06:10 Absolute Eosinophils 0.02 10^3/uL (0.0-0.7) 11/12/19 06:10 Absolute Basophils 0.02 10^3/uL (0.0-0.2) 11/12/19 06:10 PT 12.3 sec (9.3-11.0) H 11/09/19 08:55 INR 1.2 (0.9-1.1) H 11/09/19 08:55 APTT 27.9 sec (21.0-31.4) D 11/11/19 09:40 Sodium 137 mmol/L (136-145) 11/12/19 05:35 Potassium 4.2 mmol/L (3.5-5.1) 11/12/19 05:35 Chloride 106 mmol/L (98-107) 11/12/19 05:35 Carbon Dioxide 23.3 mmol/L (21.0-32.0) 11/12/19 05:35 Anion Gap 7.7 mmol/L (3-11) 11/12/19 05:35 BUN 25 mg/dL (7-18) H 11/12/19 05:35 Creatinine 0.95 mg/dL (0.55-1.02) D 11/12/19 05:35 Estimated GFR/1.73 m2 57.50 (mL/min/1.73m2) 11/12/19 05:35 Glucose 144 mg/dL (74-106) H D 11/12/19 05:35 Lactate 1.5 mmol/L (0.6-1.4) H 11/10/19 06:07 Calcium 7.4 mg/dL (8.5-10.1) L 11/12/19 05:35 Magnesium 2.0 mg/dL (1.8-2.4) 11/10/19 06:07 Total Bilirubin 0.8 mg/dL (0.2-1.0) 11/09/19 08:55 AST 44 U/L (15-37) H 11/09/19 08:55 ALT 41 U/L (14-59) 11/09/19 08:55 Alkaline Phosphatase 127 U/L (46-116) H 11/09/19 08:55 Troponin I < 0.05 ng/mL (<0.06) 11/09/19 17:30 Total Protein 6.8 g/dL (6.4-8.2) 11/09/19 08:55 Albumin 2.8 g/dL (3.4-5.0) L 11/09/19 08:55 Lipase 46 U/L (73-393) 11/09/19 08:55 Procalcitonin 23.6 ng/mL 11/09/19 13:00 TSH 1.87 uIU/mL (0.36-3.74) 11/09/19 08:55 Urine Color Yellow (Yellow) 11/09/19 09:27 Urine Clarity Sl cloudy (Clear) 11/09/19 09:27 Urine pH 5.5 (5-8) 11/09/19 09:27 Ur Specific [place] 1.020 (1.005-1.025) 11/09/19 09:27 Urine Protein Trace mg/dL (Negative) H 11/09/19 09:27 Urine Ketones 15 mg/dL (Negative) H 11/09/19 09:27 Urine Blood Large (Negative) H 11/09/19 09:27 Urine Nitrite Negative (Negative) 11/09/19 09:27 Urine Bilirubin Negative (Negative) 11/09/19 09:27 Urine Urobilinogen 0.2 EU/dL (Up TO 0.2) 11/09/19 09:27 Ur Leukocyte Esterase Small (Negative) H 11/09/19 09:27 Urine RBC 20-50 HPF (0-2) H 11/09/19 09:27 Urine WBC 10-20 HPF (0-5) H 11/09/19 09:27 Ur Epithelial Cells Few HPF (Negative) 11/09/19 09:27 Urine Crystals Negative HPF (Negative) 11/09/19 09:27 Urine Bacteria Few HPF (Negative) 11/09/19 09:27 Urine Casts Negative LPF (Negative) 11/09/19 09:27 Urine Mucus Negative (Negative) 11/09/19 09:27 Ur Culture Indicated? Yes 11/09/19 09:27 Urine Glucose 500 mg/dL (Negative) H 11/09/19 09:27 Stool Campylobacter PCR Negative (Negative) 11/11/19 08:00 Stl C.difficile Tox PCR Positive (Negative) A 11/11/19 08:00 Stool Salmonella PCR Negative (Negative) 11/11/19 08:00 Stool Shigella PCR Negative (Negative) 11/11/19 08:00 COVID-19 PCR Negative (Negative) 11/09/19 12:39 Nasopharyn COVID-19 PCR Not Applicable 11/09/19 12:39 Shiga Toxin (PCR) Negative (Negative) 11/11/19 08:00 Ref Test Perform Site [place] [facility] lab 11/09/19 12:39 Patient ABO/Rh O Positive 11/11/19 09:40 Antibody Screen Negative 11/11/19 09:40 Crossmatch See Detail 11/11/19 09:40
[2019-11-12] MEDS: Normal Saline 1,000 ML 50 ML IV (18:48)
[2019-11-12] MEDS: Pantoprazole 40 MG TABCR PO (20:01)
[2019-11-12] MEDS: dilTIAZem CD 300 MG CAPCR PO (21:54)
[2019-11-12] MEDS: diazePAM 2 MG TAB PO (22:06)
[2019-11-13 00:30] VITALS: BP 102/58; PULSE 108; RESP 18; TEMP 36; O2SAT 96
[2019-11-13] MEDS: Normal Saline Flush 10 ML SYR IVP (02:18)
[2019-11-13] MEDS: Hydrocortisone SOD SUC. 100 MG VIAL 50 MG IVP ×2 (02:18→10:40)
[2019-11-13 06:45] LABS: Abs Immature Grans 0.78 10^3/uL (0.0-0.06); HGB 9.6 g/dL (11.2-15.7); MCH 31.4 pg (27.0-33.0); MCHC 33.1 % (32.0-36.0); MCV 94.8 fL (80-95); MPV 10.3 fL (8.0-11.0); Platelet Count 233 10^3/uL (130-400); RBC 3.06 10^6/uL (3.93-5.22); RDW 15.6 % (11.7-14.6); RDW-SD 54.1 fL; WBC 12.49 10^3/uL (4.4-10.8)
[2019-11-13 06:58] LABS: Anion Gap 9.2 mmol/L (3-11); BUN 16 mg/dL (7-18); CO2 24.8 mmol/L (21.0-32.0); Calcium 7.9 mg/dL (8.5-10.1); Chloride 107 mmol/L (98-107); Glucose 75 mg/dL (74-106); Potassium 3.6 mmol/L (3.5-5.1); Sodium 141 mmol/L (136-145)
[2019-11-13 07:28] VITALS: BP 142/77; PULSE 107; RESP 18; TEMP 36; O2SAT 97
[2019-11-13 07:28] LABS: Absolute Lymphocyte Count 1.87 10^3/uL (1.2-3.4); Absolute Monocyte Count 1.25 10^3/uL (0.1-0.8); Absolute Neutrophil Count 8.87 10^3/uL (1.2-6.7); Atypical Lymphocytes % 2; Bands % 5; Metamyelocytes % 3
[2019-11-13 07:29] LABS: Diff Comment Manual Differential; Myelocytes % 1; Polychromasia Present
[2019-11-13 07:50] VITALS: O2SAT 97
[2019-11-13] MEDS: buPROPion-CR 100 MG TABCR PO (08:03)
[2019-11-13] MEDS: DULoxetine 30 MG CAP 60 MG PO (08:03)
[2019-11-13] MEDS: Multivitamin TAB 1 TAB PO (08:03)
[2019-11-13] MEDS: Metoprolol CR 50 MG TABCR 150 MG PO (08:03)
[2019-11-13] MEDS: Sucralfate 1 GM TAB PO ×4 (08:03→21:04)
[2019-11-13] MEDS: levoFLOXacin 500 MG, levoFLOXacin 250 MG 750 MG PO (08:04)
[2019-11-13] MEDS: Tamsulosin 0.4 MG CAPCR PO (08:04)
[2019-11-13] MEDS: Pantoprazole 40 MG TABCR PO ×2 (08:05→19:48)
[2019-11-13] MEDS: Nystatin POWDER 15 GM JAR TP ×2 (08:06→19:48)
--- NOTE | 2019-11-13 08:20 | PDOC.CMPRO ---
- If Service Date Differs Date of service: 11/13/19 Time of Service: 08:20 Care Management Progress Note S/O:Ruba is engaged in conversation she enjoys talking about her cats and small dog. She states her spouse will be relieved to have some help through home health. CM will update Oraliacollette Galan at time of discharge community engagement specialist through [place] [facility]. Ruba transition to medical surgical unit, she is hopeful to be discharge home on Friday she states her can transport her home. Palliative will continue to follow up as outpatient for home visits. Ruba's states he wants her to be home with him when she is ready. A:Ruba is a 74 year old female admitted with UTI, hyperglycemia and kindey stones P:Ruba will be discharged home when medically ready. She will be discharged home with new referral to home health for nursing, PT, OT and B[employer], requiring a face to face for services. Ruba will continue with palliative as outpatient. CM to continue to assess for discharge needs and provide coordination.
[2019-11-13] MEDS: Insulin Glargine 300 UNITS/3 ML PEN 45 UNITS SC (10:52)
[2019-11-13] MEDS: Insulin NPH-Human 300 UNITS/3 ML PEN 25 UNIT SC (10:54)
[2019-11-13] MEDS: Insulin Aspart 300 UNITS/3 ML PEN SC ×3 (12:21→17:23)
[2019-11-13] MEDS: Normal Saline 1,000 ML 50 ML IV (12:23)
--- NOTE | 2019-11-13 13:27 | PGE_ITS ---
Date of Service Date of service: 11/13/19 Time of Service: 13:28 Assessment and Plan Assessment and plan (1) Gastrointestinal bleeding: Status: Acute Assessment and plan: Hgb stabilized at 9.6 Holding AC until f/u with surgery / upper endoscopy as outpt. Consideration could be given for Watchmen's device. Cont Protonix and Carafate. Qualifiers: GI bleed type/associated pathology: unspecified gastrointestinal hemorrhage type Qualified Code(s): K92.2 - Gastrointestinal hemorrhage, unspecified (2) UTI (urinary tract infection): Status: Acute Assessment and plan: Urine culture grew lactobacillus. Blood cx negative. Cont Levaquin. Qualifiers: Urinary tract infection type: site unspecified Hematuria presence: with hematuria Qualified Code(s): N39.0 - Urinary tract infection, site not specified; R31.9 - Hematuria, unspecified (3) Obstructive uropathy: Status: Acute Assessment and plan: S/P cystoscopy and ureteroscopy; R ureteral stent. F/U as outpt with Dr. Fernandez to undergo holmium laser ablation and stent removal. (4) Acute renal failure: Status: Resolved Assessment and plan: Resolved. Cr now 0.8 Qualifiers: Acute renal failure type: unspecified Qualified Code(s): N17.9 - Acute kidney failure, unspecified (5) IDDM (insulin dependent diabetes mellitus): Status: Chronic Assessment and plan: Cont basal/bolus insulin. Stop NPH now she is no longer on IV steroid. Held NPH last HS d/t marginally low glucose. (6) Atrial fibrillation with RVR: Status: Acute Assessment and plan: Cont BB and CCB. HR still mildly tachycardic in the low 100's. Off AC d/t GI bleed. (7) Steroid dependent: Status: Chronic Assessment and plan: Stop IV hydrocortisone and resume prednisone 5 mg daily per her home regimen. Subjective Subjective Patient reports: no new complaints and feels better Interval history since last seen: No dysuria, F/C. No diarrhea, melena, hematochezia. Appetite OK. No N/V/abd pain Exam Const General: cooperative Nutritional Appearance: obese Orientation: alert and oriented x3 Resp Effort & Inspection: normal respiratory effort Auscultation: clear to auscultation bilaterally and diminished lung sounds Cardio Other: Irreg Irreg / tachycardic GI Inspection: obesity Palpation: soft Auscultation: normal bowel sounds Other: NT Extrem General: normal to inspection and no clubbing, cyanosis or edema Objective Objective Clinical Data: Abnormal lab results 11/13/19 11/13/19 Range/Units 06:15 06:15 WBC 12.49 H (4.4-10.8) 10^3/uL RBC 3.06 L (3.93-5.22) 10^6/uL Hgb 9.6 L (11.2-15.7) g/dL Hct 29.0 L (36.0-46.0) % RDW 15.6 H (11.7-14.6) % Absolute Neutrophils 8.87 H (1.2-6.7) 10^3/uL Absolute Monocytes 1.25 H (0.1-0.8) 10^3/uL Calcium 7.9 L (8.5-10.1) mg/dL Vital Signs Temperature 36 C L 11/13/19 07:28 Temperature Source Tympanic 11/13/19 07:28 Pulse 107 H 11/13/19 07:28 Pulse Rhythm Irregular 11/13/19 07:50 Pulse 117 H 11/12/19 15:34 Respiratory Rate 18 11/13/19 07:28 Respiratory Effort 11/13/19 07:50 Respiratory Depth Normal 11/13/19 07:50 Respiratory Pattern Normal 11/13/19 07:50 Blood Pressure 142/77 H 11/13/19 07:28 Blood Pressure Mean 68 11/12/19 15:34 Blood Pressure Position Supine 11/12/19 07:30 Pulse Oximetry 97 11/13/19 07:50 Oxygen Delivery Method Room Air 11/13/19 07:50 Oxygen Flow Rate 0 11/13/19 07:50 Pain Level 0 11/13/19 07:28 Comment 11/13/19 00:30 Intake & Output 11/12/19 11/13/19 11/13/19 23:59 11:59 23:59 Intake Total 1976.667 / 2476.667 1236.667 / 2355.834 1119.167 / 2355.834 Output Total 1150 / 2700 2150 / 2150 Balance 826.667 / -223.333 -913.333 / 903.804 2048.167 / 205.834 Weight 150.8 kg Intake: IV 936.667 / 1036.667 936.667 / 1815.834 879.167 / 1815.834 Oral 1040 / 1440 300 / 540 240 / 540 Output: Urine 1150 / 2700 2150 / 2150 Other: Urine Color Yellow Yellow Urine Appearance Clear Sediment Stool Occult Blood Positive Positive Stool Size Large Large Stool Characteristics Soft Liquid Bloody Brown Laboratory Results WBC 12.49 10^3/uL (4.4-10.8) H 11/13/19 06:15 RBC 3.06 10^6/uL (3.93-5.22) L 11/13/19 06:15 Hgb 9.6 g/dL (11.2-15.7) L 11/13/19 06:15 Hct 29.0 % (36.0-46.0) L 11/13/19 06:15 MCV 94.8 fL (80-95) 11/13/19 06:15 MCH 31.4 pg (27.0-33.0) 11/13/19 06:15 MCHC 33.1 % (32.0-36.0) 11/13/19 06:15 RDW 15.6 % (11.7-14.6) H 11/13/19 06:15 Plt Count 233 10^3/uL (130-400) 11/13/19 06:15 MPV 10.3 fL (8.0-11.0) 11/13/19 06:15 Immature Gran % See Differential 11/13/19 06:15 Neutrophils % 66.0 11/13/19 06:15 Band Neutrophils % 5 11/13/19 06:15 Lymphocytes % 13.0 11/13/19 06:15 Atypical Lymphs % 2 11/13/19 06:15 Monocytes % 10.0 11/13/19 06:15 Eosinophils % 0.0 11/13/19 06:15 Basophils % 0.0 11/13/19 06:15 Metamyelocytes % 3 11/13/19 06:15 Myelocytes % 1 11/13/19 06:15 Absolute Neutrophils 8.87 10^3/uL (1.2-6.7) H 11/13/19 06:15 Absolute Lymphocytes 1.87 10^3/uL (1.2-3.4) 11/13/19 06:15 Absolute Monocytes 1.25 10^3/uL (0.1-0.8) H 11/13/19 06:15 Absolute Eosinophils 0.00 10^3/uL (0.0-0.7) 11/13/19 06:15 Absolute Basophils 0.00 10^3/uL (0.0-0.2) 11/13/19 06:15 RBC Morphology See below 11/13/19 06:15 Polychromasia Present 11/13/19 06:15 PT 12.3 sec (9.3-11.0) H 11/09/19 08:55 INR 1.2 (0.9-1.1) H 11/09/19 08:55 APTT 27.9 sec (21.0-31.4) D 11/11/19 09:40 Sodium 141 mmol/L (136-145) 11/13/19 06:15 Potassium 3.6 mmol/L (3.5-5.1) 11/13/19 06:15 Chloride 107 mmol/L (98-107) 11/13/19 06:15 Carbon Dioxide 24.8 mmol/L (21.0-32.0) 11/13/19 06:15 Anion Gap 9.2 mmol/L (3-11) 11/13/19 06:15 BUN 16 mg/dL (7-18) D 11/13/19 06:15 Creatinine 0.80 mg/dL (0.55-1.02) 11/13/19 06:15 Estimated GFR/1.73 m2 >= 60.00 (mL/min/1.73m2) 11/13/19 06:15 Glucose 75 mg/dL (74-106) D 11/13/19 06:15 Lactate 1.5 mmol/L (0.6-1.4) H 11/10/19 06:07 Calcium 7.9 mg/dL (8.5-10.1) L 11/13/19 06:15 Magnesium 2.0 mg/dL (1.8-2.4) 11/10/19 06:07 Total Bilirubin 0.8 mg/dL (0.2-1.0) 11/09/19 08:55 AST 44 U/L (15-37) H 11/09/19 08:55 ALT 41 U/L (14-59) 11/09/19 08:55 Alkaline Phosphatase 127 U/L (46-116) H 11/09/19 08:55 Troponin I < 0.05 ng/mL (<0.06) 11/09/19 17:30 Total Protein 6.8 g/dL (6.4-8.2) 11/09/19 08:55 Albumin 2.8 g/dL (3.4-5.0) L 11/09/19 08:55 Lipase 46 U/L (73-393) 11/09/19 08:55 Procalcitonin 23.6 ng/mL 11/09/19 13:00 TSH 1.87 uIU/mL (0.36-3.74) 11/09/19 08:55 Urine Color Yellow (Yellow) 11/09/19 09:27 Urine Clarity Sl cloudy (Clear) 11/09/19 09:27 Urine pH 5.5 (5-8) 11/09/19 09:27 Ur Specific [place] 1.020 (1.005-1.025) 11/09/19 09:27 Urine Protein Trace mg/dL (Negative) H 11/09/19 09:27 Urine Ketones 15 mg/dL (Negative) H 11/09/19 09:27 Urine Blood Large (Negative) H 11/09/19 09:27 Urine Nitrite Negative (Negative) 11/09/19 09:27 Urine Bilirubin Negative (Negative) 11/09/19 09:27 Urine Urobilinogen 0.2 EU/dL (Up TO 0.2) 11/09/19 09:27 Ur Leukocyte Esterase Small (Negative) H 11/09/19 09:27 Urine RBC 20-50 HPF (0-2) H 11/09/19 09:27 Urine WBC 10-20 HPF (0-5) H 11/09/19 09:27 Ur Epithelial Cells Few HPF (Negative) 11/09/19 09:27 Urine Crystals Negative HPF (Negative) 11/09/19 09:27 Urine Bacteria Few HPF (Negative) 11/09/19 09:27 Urine Casts Negative LPF (Negative) 11/09/19 09:27 Urine Mucus Negative (Negative) 11/09/19 09:27 Ur Culture Indicated? Yes 11/09/19 09:27 Urine Glucose 500 mg/dL (Negative) H 11/09/19 09:27 Stool Campylobacter PCR Negative (Negative) 11/11/19 08:00 Stl C.difficile Tox PCR Positive (Negative) A 11/11/19 08:00 Stool Salmonella PCR Negative (Negative) 11/11/19 08:00 Stool Shigella PCR Negative (Negative) 11/11/19 08:00 COVID-19 PCR Negative (Negative) 11/09/19 12:39 Nasopharyn COVID-19 PCR Not Applicable 11/09/19 12:39 Shiga Toxin (PCR) Negative (Negative) 11/11/19 08:00 Ref Test Perform Site [facility] lab 11/09/19 12:39 Patient ABO/Rh O Positive 11/11/19 09:40 Antibody Screen Negative 11/11/19 09:40 Crossmatch See Detail 11/11/19 09:40
[2019-11-13 15:39] VITALS: BP 105/68; PULSE 115; RESP 18; TEMP 36.4; O2SAT 97
[2019-11-13 19:30] VITALS: BP 120/73; PULSE 110; RESP 19; TEMP 36.5; O2SAT 97
[2019-11-13] MEDS: dilTIAZem CD 300 MG CAPCR PO (21:04)
[2019-11-13 23:33] VITALS: BP 122/76; PULSE 116; RESP 18; TEMP 36.1; O2SAT 97
[2019-11-14] MEDS: Acetaminophen 325 MG TAB PO (01:17)
[2019-11-14] MEDS: diazePAM 2 MG TAB PO (01:18)
[2019-11-14 03:02] VITALS: BP 116/75; PULSE 101; RESP 17; TEMP 35.9; O2SAT 96
[2019-11-14] MEDS: Normal Saline 1,000 ML 50 ML IV (06:26)
[2019-11-14 07:32] VITALS: BP 147/84; PULSE 122; RESP 17; TEMP 35.3; O2SAT 95
[2019-11-14 07:45] VITALS: O2SAT 95
[2019-11-14] MEDS: Metoprolol CR 50 MG TABCR 150 MG PO (07:50)
[2019-11-14] MEDS: DULoxetine 30 MG CAP 60 MG PO (07:50)
[2019-11-14] MEDS: buPROPion-CR 100 MG TABCR PO (07:50)
[2019-11-14] MEDS: predniSONE 5 MG TAB PO (07:50)
[2019-11-14] MEDS: Pantoprazole 40 MG TABCR PO (07:51)
[2019-11-14] MEDS: levoFLOXacin 500 MG, levoFLOXacin 250 MG 750 MG PO (07:51)
[2019-11-14] MEDS: Tamsulosin 0.4 MG CAPCR PO (07:51)
[2019-11-14] MEDS: Multivitamin TAB 1 TAB PO (07:51)
[2019-11-14] MEDS: Sucralfate 1 GM TAB PO ×2 (07:51→12:36)
[2019-11-14] MEDS: Nystatin POWDER 15 GM JAR TP (07:54)
--- NOTE | 2019-11-14 09:10 | DI.RAD_ITS ---
EXAM: XR CHEST 2V PA LATERAL CLINICAL HISTORY: increase leukocytosis TECHNIQUE: COMPARISON: CR,XR XR PORTABLE CHEST AP POST LINE from 11/09/2019 FINDINGS: Heart is at the upper limits of normal in size. Lungs are clear and well expanded. Right central ve nous catheter noted in good position. No pneumothorax or pleural effusion. IMPRESSION: No evidence of acute process.
--- NOTE | 2019-11-14 09:26 | DI.VRAD_ITS ---
PROCEDURE INFORMATION: Exam: XR Chest, 2 Views Exam date and time: 11/14/2019 9:03 AM Age: 74 years old Clinical indication: Other: Increased leukocytosis TECHNIQUE: Imaging protocol: XR of the chest Views: 2 views. COMPARISON: CR XR PORTABLE CHEST AP POST LINE 11/09/2019 4:28 PM FINDINGS: Tubes, catheters and devices: Stable Central line terminates in the superior vena cava in good position Overlying EKG wires Lungs: No focal consolidation. Pleural space: Unremarkable. No pleural effusion. No pneumothorax. Heart/Mediastinum: Unremarkable. No cardiomegaly. Bones/joints: Unremarkable. IMPRESSION: No focal consolidation. Dictated and Authenticated by: Cherri Constantino MD. Ordering:AGATA Urbina MD
--- NOTE | 2019-11-14 09:45 | DSE_ITS ---
Date of service: 11/14/19 Time of Service: 09:46 DS: Diagnosis Discharge Diagnosis (1) Gastrointestinal bleeding: Start date: 11/14/19 Start time: 09:47 Status: Acute Asessment and Plan: GI bleed in setting of anticoagulants for a fib. EGD preformed by Dr. Colvin, demonstrating duodenal ulcer which was not bleeding at the time of scope. She was started on IV protonix and carafate, She did receive 2 units PRBC while hospitalized, Hemoglobin has been stable 9.3 today, day of discharge. She will need to avoid NSAIDs, aspirins and stay of anticoagulation at this time. Follow up with Dr. Colvin in surgery and have a repeat scope in 1 month. Continue on protonix po with carafate. (2) Sepsis: Start date: 11/14/19 Start time: 09:54 Status: Resolved Asessment and Plan: septic on admission requiring norepinephrine drip to maintain arterial pressures greater than or equal to 65 with CVP line placement. She was found to have UTI with acute renal failure creatinine 1.79 lactate 5.9 with a procalcitonin level 23.6, she went to the OR day of admission for cystoscopy with ureteroscopy and stent. Urine culture grew lactobacillus species. Initially she was on broad spectrum antibiotics. Blood cultures no growth after 72 hours. She was transitioned to levaquin PO she will be discharged home to finish a course of levaquin for a total 10 days. WBC on admission were normal, however today they are elevated. she was given stress dose steroid and given her improvement in symptoms, vitals, it is likely steroids driving the wbc up, therefore she will be discharged home with a repeat CBC in 3 days and follow up with PCP in 4 days. She denies pain. She will need follow up with Dr. Fernandez for stent removal and holmium laser ablation (3) UTI (urinary tract infection): Start date: 11/14/19 Start time: 10:04 Status: Acute Asessment and Plan: as above (4) Obstructive uropathy: Start date: 11/14/19 Start time: 10:04 Status: Resolved (5) Acute renal failure: Start date: 11/14/19 Start time: 10:06 Status: Resolved Asessment and Plan: from above (6) IDDM (insulin dependent diabetes mellitus): Start date: 11/14/19 Start time: 10:06 Status: Chronic Asessment and Plan: She did experience low blood glucose levels while in the hospital. She was on lantus and NPH, continue home regimen on discharge. Will defer to PCP for elevated BGL (7) Atrial fibrillation with RVR: Start date: 11/14/19 Start time: 10:07 Status: Acute Asessment and Plan: She will need follow up with cardiology continue BB, CCB and lasix She did have afib RVR on admission, placed on cardizem gtt, she has been controlled since transfer to the floor. She did have an echo: Conclusion Normal left ventricular wall thickness and chamber size. Estimated ejection fraction is approximately 50% there are no segmental wall motion abnormalities Normal right ventricular size and systolic function. Normal estimated right ventricular systolic pressure Both atria are top normal in size Aortic valve is sclerotic without stenosis or regurgitation Mildly thickened mitral leaflets with mild regurgitation The tricuspid valve is structurally normal with mild regurgitation Structurally normal pulmonic valve, no pulmonic regurgitation (8) Steroid dependent: Start date: 11/14/19 Start time: 10:22 Status: Chronic Asessment and Plan: Continue prednisone dosing Above case discussed with Dr. Machuca who is in agreement. Discharge Plan Disposition Patient Disposition: HOME W/HOME HEALTH SERVICE Condition: Stable Discharge Details Chief Complaint: GenMedical Clinical Impression: Diarrhea, UTI (urinary tract infection), Dehydration, Ureterolithiasis, Hyperglycemia, Lactic acidosis Reason For Visit: UTI, DIARRHEA,HYPERLGYCEMIA,URETEROLITHISSIS Admit Date/Time: 11/09/19 12:10 Admit Provider: Rey Rudolph Attending Provider: Rey Rudolph Primary Care Provider: Marleen Warren ED Provider: Lynne Caputo Hospital Course Hospital Course: 74-year-old female with a history of type 2 diabetes mellitus requiring insulin along with a history of nephrolithiasis and chronic atrial fibrillation, rheumatoid arthritis (on chronic prednisone 5 mg daily) presents to the emergency department with acute onset of nausea and vomiting that started yesterday followed by a bout of diarrhea this morning. No associated abdominal pain. She complains of generalized weakness and dizziness and palpitations but no chest pain and no dyspnea. She denies any dysuria or hematuria. No melena or hematochezia. Evaluation the emergency department found her to be tachycardic in rapid atrial fibrillation with hypotension and laboratory work-up demonstrated acute renal insufficiency with a creatinine 1.79 and elevated blood lactate of 5.9 and a glucose of 439. Troponin levels were less than 0.05?2 sets. Procalcitonin level is elevated 23.6. And her urinalysis is suspicious for UTI. Noncontrast CT scan of her abdomen pelvis was performed. calcifications were seen in the right renal pelvis as well as the upper and lower pole and a few tiny nonobstructing stones were seen in the left kidney. Bladder was nearly empty with no gross wall thickening. She has mild sigmoid diverticulosis with no diverticulitis. There is no peritoneal ascites. Liver showed fatty liver changes. She is status post cholecystectomy with no biliary dilatation and normal-appearing pancreas and spleen. Patient was given 2 L of fluids and was started on diltiazem drip after being given 10 mg of diltiazem IV push. Because she required the diltiazem drip drip and still had some hypotension she was put on norepinephrine drip and admitted to the intensive care unit. Blood and urine cultures were obtained and she was started on Rocephin 1 g IV in the emergency department but then switched that to ertapenem 1 g IV every 12 hours. Urology was consulted on day of admission and took her to the or for cystoscopy, ureteroscopy and stent. During course of hospitalization she was septic on admission requiring norepinephrine drip to maintain arterial pressures greater than or equal to 65 with CVP line placement. She was found to have UTI with acute renal failure creatinine 1.79 lactate 5.9 with a procalcitonin level 23.6, she went to the OR day of admission for cystoscopy with ureteroscopy and stent. Urine culture grew lactobacillus species. Initially she was on broad spectrum antibiotics. Blood cultures no growth after 72 hours. She was transitioned to levaquin PO she will be discharged home to finish a course of levaquin for a total 10 days. WBC on admission were normal, however today they are elevated. she was given stress dose steroid and given her improvement in symptoms, vitals, it is likely steroids driving the wbc up, therefore she will be discharged home with a repeat CBC in 3 days and follow up with PCP in 4 days. She denies pain. She will need follow up with Dr. Fernandez for stent removal and holmium laser ablation . She started to have maroon stools with GI bleed in setting of anticoagulants for a fib. EGD preformed by Dr. Colvin, demonstrating duodenal ulcer which was not bleeding at the time of scope. She was started on IV protonix and carafate, She did receive 2 units PRBC while hospitalized, Hemoglobin has been stable 9.3 today, day of discharge. She will need to avoid NSAIDs, aspirins and stay of anticoagulation at this time. Follow up with Dr. Colvin in surgery and have a repeat scope in 1 month. Continue on protonix po with carafate. 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 She feels great and wants to be in her own environment. Home Meds and New Rx's Prescriptions: New sucralfate 1 gram Tablet 1 g PO AC & HS Qty: 120 RF: 0 tamsulosin 0.4 mg Capsule 0.4 mg PO DAILY Qty: 30 RF: 0 pantoprazole 40 mg Tablet,Delayed Release (Dr/Ec) 40 mg PO BID@0730,1999 Qty: 30 RF: 0 levofloxacin [Levaquin] 750 mg Tablet 750 mg PO QAM Qty: 9 RF: 0 Continued multivitamin [Daily Value] 1 EACH tablet 1 ea PO DAILY RF: 0 lutein 20 MG capsule 20 mg PO DAILY RF: 0 Victoza 2-Tree 0.6 MG/0.1 ML pen injector 1.8 mg SQ HS RF: 0 melatonin 10 MG capsule 10 mg PO HS RF: 0 mecobalamin (vitamin B12) 1,000 MCG tablet,disintegrating 1,000 mcg Sublingual DAILY RF: 0 Vitamin C 1,000 MG tablet extended release 1,000 mg PO DAILY RF: 0 cholecalciferol (vitamin D3) 1,000 UNIT capsule 5,000 unit PO DAILY RF: 0 losartan 50 MG tablet 50 mg PO DAILY RF: 0 prednisone 5 MG tablet 5 mg PO DAILY RF: 0 diazepam 2 MG tablet 2 mg PO DAILY PRNRF: 0 duloxetine [Cymbalta] 60 MG capsule,delayed release(DR/EC) 60 mg PO DAILY RF: 0 Livalo 2 MG tablet 1 mg PO DAILY RF: 0 Toujeo SoloStar U-300 Insulin 300 unit/mL (1.5 mL) Insulin Pen 90 unit SUBCUT QAM RF: 0 bupropion HCl [Wellbutrin SR] 100 mg Tablet Sustained-Release 12 Hr 100 mg PO BID RF: 0 diltiazem HCl 300 mg Capsule,Extended Release 24hr 300 mg PO DAILY Qty: 30 RF: 0 docusate sodium [Colace] 100 mg Capsule 100 mg PO TID PRN PRN (Reason: constipation) Qty: 30 RF: 0 furosemide [Lasix] 20 mg tablet 20 mg PO DAILY Qty: 10 RF: 0 Calcium 600 + D(3) 600 mg calcium- 200 unit Capsule 1 cap PO DAILY RF: 0 coenzyme Q10 100 mg Capsule 100 mg PO DAILY RF: 0 Humalog KwikPen Insulin 200 unit/mL (3 mL) insulin pen 30 unit SUBCUT AC RF: 0 metoprolol succinate 50 mg tablet extended release 24 hr 150 mg PO DAILY RF: 0 colesevelam 625 mg tablet 625 mg PO BID RF: 0 vitamin B complex Tablet 1 tab PO DAILY RF: 0 cetirizine 10 mg Tablet 10 mg PO DAILY RF: 0 Discontinued celecoxib [Celebrex] 200 MG capsule 200 mg PO DAILY RF: 0 Pradaxa 150 MG capsule 150 mg PO BID RF: 0 loperamide 2 mg Capsule 2 mg PO QLOOSE PRNQty: 30 RF: 0 Discharge Instructions Instructions: A-fib (Atrial Fibrillation) (DC), Gastrointestinal Bleeding (ED), Urinary Tract Infection in Women (DC), Sepsis (GEN), Hypotension (DC) Additional Instructions: Follow up with Dr. Colvin for surgery Follow up with Dr. Fernandez I will place a referral for Dr. Sousa cardiology they will call you with time and date. DO NOT TAKE NSAIDs, ASPIRINS, PRADXA, Take carafate four times a day Protonix twice a day Levaquin antibiotic daily for 9 days Eat a yogurt or take probiotic daily for at least one month FOLLOW UP WITH PCP IN 4 DAYS LAB DRAW IN 3 DAYS Palliative will follow you in the community Referrals: Andres Fernandez MD [ [facility] STAFF PHYSICIAN] - Ilana Colvin MD [ [facility] STAFF PHYSICIAN] - Shaji Rod MD [ CONSULTING PHYSICIAN] - Activity:: Activity as Tolerated Equipment/Supplies:: No Equipment Needed Diet:: Carb Counting Discharge Orders Discharge Orders: Discharge Order (Routine); Ordered 11/14/19 Ordered By: Ciara Mcginnis Other Ambulatory Orders: Complete Blood Count w/Diff (Routine) Location: None Selected Ordered By: Ciara Mcginnis DS: Summary Status at Discharge Functional status at discharge: wheelchair bound Overall status at discharge: patient is back to baseline Mental Status: mental status grossly normal Speech and Movement: speech and movement normal Mood: congruent mood Affect: normal affect Exam Narrative Exam Narrative: General: alert and oriented, pale, overweight. Lying in bed, smiling and talkative, does not appear to be in any acute distress. HEENT: Normocephalic, atraumatic, pupils equal and round. Neck: Supple. Cardiovascular: Irregularly irregular rhythm, tachycardic. Respiratory: Respirations appear even and unlabored, lung sounds clear on limited anterior and lateral exam. GI: Abdomen is large and round. + Bowel sounds throughout, abdomen is soft, nontender on palpation. Extremities: Pitting edema to bilateral lower extremities, right greater than left. Teds on bilaterally. Psych Mental Status: mental status grossly normal Speech and Movement: speech and movement normal Mood: congruent mood Affect: normal affect DS: Data Vitals/I&O Vitals and I&O: Vital Signs Temperature 35.3 C L 11/14/19 07:32 Temperature Source Tympanic 11/14/19 07:32 Pulse 122 H 11/14/19 07:32 Pulse Rhythm Irregular 11/14/19 07:45 Pulse 117 H 11/12/19 15:34 Respiratory Rate 17 11/14/19 07:32 Respiratory Effort 11/14/19 07:45 Respiratory Depth Normal 11/14/19 07:45 Respiratory Pattern Normal 11/14/19 07:45 Blood Pressure 147/84 H 11/14/19 07:32 Blood Pressure Mean 68 11/12/19 15:34 Blood Pressure Position Supine 11/12/19 07:30 Pulse Oximetry 95 11/14/19 07:45 Oxygen Delivery Method Room Air 11/14/19 07:45 Oxygen Flow Rate 0 11/14/19 07:45 Pain Level 0 11/14/19 07:32 Comment 11/13/19 15:39 Intake & Output 11/13/19 11/13/19 11/14/19 11:59 23:59 11:59 Intake Total 1236.667 / 2955.834 1719.167 / 2955.834 1152.5 / 1152.5 Output Total 2150 / 3325 1175 / 3325 950 / 950 Balance -913.333 / -369.166 544.167 / -369.166 202.5 / 202.5 Weight 150.8 kg 153.1 kg Intake: IV 936.667 / 1815.834 879.167 / 1815.834 902.5 / 902.5 Oral 300 / 1140 840 / 1140 250 / 250 Output: Urine 2150 / 3325 1175 / 3325 950 / 950 Other: Urine Color Yellow Yellow Yellow Urine Appearance Sediment Sediment Clear Urine Odor Normal Normal Stool Occult Blood Positive Stool Size Large Moderate Large Stool Characteristics Liquid Soft Liquid Brown Liquid Mucoid Brown Voiding Methods Bedside Commode Bedside Commode Data Completed and Pending Completed studies during hospitalization [Text1]: EXAM: XR PORTABLE CHEST AP POST LINE CLINICAL HISTORY: central line TECHNIQUE: 2D digital imaging was performed. COMPARISON: CR XR PORTABLE CHEST AP from 10/07/2018 FINDINGS: A right internal jugular central line has been placed. The tip projects in the superior vena cava. No pneumothorax is seen. The heart is enlarged. No infiltrate or effusion is seen. IMPRESSION: Satisfactory placement of central line. COMPARISON: CT CHEST/ABD/PEL WO 11/09/2019 9:58 AM FINDINGS: Tubes, catheters and devices: Right central line ends in the SVC. Lungs: Unremarkable. No consolidation. Pleural space: Unremarkable. No pleural effusion. No pneumothorax. Heart/Mediastinum: Cardiomegaly. Bones/joints: Degenerative changes in the spine. IMPRESSION: 1. Cardiomegaly. 2. Right central line ends in the SVC. Conclusion Normal left ventricular wall thickness and chamber size. Estimated ejection fraction is approximately 50% there are no segmental wall motion abnormalities Normal right ventricular size and systolic function. Normal estimated right ventricular systolic pressure Both atria are top normal in size Aortic valve is sclerotic without stenosis or regurgitation Mildly thickened mitral leaflets with mild regurgitation The tricuspid valve is structurally normal with mild regurgitation Structurally normal pulmonic valve, no pulmonic regurgitation Exam(s) a RAD:XR retrograde in OR EXAM: XR RETROGRADE IN OR CLINICAL HISTORY: Ureterolithiasis. TECHNIQUE: Fluoroscopy was provided for the referring physician for guidance with performing retrograde procedure. COMPARISON: No exams were available for comparison FINDINGS: Please see procedure note for details. Fluoro time: 15.2 sec FINDINGS: Tubes, catheters and devices: Stable Central line terminates in the superior vena cava in good position Overlying EKG wires Lungs: No focal consolidation. Pleural space: Unremarkable. No pleural effusion. No pneumothorax. Heart/Mediastinum: Unremarkable. No cardiomegaly. Bones/joints: Unremarkable. IMPRESSION: No focal consolidation. Labs on day of discharge: Labs from last 24 hours 11/14/19 06:05 WBC 16.27 H D RBC 2.96 L Hgb 9.3 L Hct 28.5 L MCV 96.3 H MCH 31.4 MCHC 32.6 RDW 15.8 H Plt Count 317 MPV 10.3 Immature Gran % 0.0 Neutrophils % 56.0 Lymphocytes % 27.0 Monocytes % 14.0 Eosinophils % 3.0 Basophils % 0.0 Absolute Neutrophils 9.11 H Absolute Lymphocytes 4.39 H Absolute Monocytes 2.28 H Absolute Eosinophils 0.49 Absolute Basophils 0.00 RBC Morphology See below Polychromasia Present Preliminary micro results at discharge 11/10/19 12:05 Blood Culture - Preliminary Blood NO GROWTH 72 HOURS 11/10/19 12:15 Blood Culture - Preliminary Blood NO GROWTH 72 HOURS [facility] Medical History Ambulatory dysfunction (Inactive) Atrial fibrillation (Chronic) C. difficile colitis (Acute) Diabetes (Chronic) Duodenal ulcer (Acute) HTN (hypertension) (Chronic) Hx of hyperlipidemia (Acute) Obesity, morbid, BMI 40.0-49.9 (Inactive) Obstructive sleep apnea (Suspected) Palliative care patient (Acute) Pulmonary hypertension (Inactive) mild Rheumatoid arteritis (Acute) Rheumatoid arthritis (Inactive) Surgical History History of hysterectomy (Chronic) Hx of cholecystectomy (Chronic) Social History Smoking/Tobacco Use Status: Former Tobacco Use Drug use: Never Additional Social history: Lives with her Valeriy on [address] in [facility], moving to handicapped apartment They moved up here from [place] to be near their daughter. 2 sons in [facility]. 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
--- NOTE | 2019-11-14 09:54 | CMDISCH_ITS ---
- If Service Date Differs Date of service: 11/14/19 Time of Service: 09:54 LACE Index Scoring Tool - Questions: Length of Stay (in days): 4 - 6 Acuity (Admit via E.D.?): Yes Comorbidities: Diabetes w/o Complication E.D. Visits: 1 - Answers: Total Score: 9 Risk of Readmission: Low Risk Care Management Discharge Reason for Hospitalization: UTI, Diarrhea, hyperglycemia, ureterolithissis Discharge Plan: Ruba is being discharged home today, CM faxed referral to home health for new services and to [facility] to notify of discharge and home service referral. Ruba feels ready for discharge and will follow up with providers as directed. [facility] will transport her home. Patient/Family Education Needs: Discharge edcuation, limitations and follow up plan of care including ask me three and self management. Services Needed at Discharge: DME Agency, Home Health Care Services, Occupational Therapy, Physical Therapy
--- NOTE | 2019-11-14 11:03 | PDOC.HHF2F ---
Home Health Certification Home Health Certification: 1. Encounter Date and Reason I certify that SARAH LUNSFORD was seen by Ciara Mcginnis on 11/14/19 and that I had a [id number] encounter with this patient that meets the physician face to face encounter requirements. 2. Clinical Findings Supporting Skilled Need and Homebound Status I certify that home health services are medically necessary, include either intermittent jail and/or physical/speech therapy, and that this patient is homebound in that absences from the home require considerable and taxing effort and are infrequent or of short duration, or are attributable to the need to receive medical care. [X] (a) Attached documentation from encounter provides clinical findings supporting skilled need and homebound status (including what assistance patient requires to leave the home). The encounter with the patient was in whole, or in part, for the following medical condition, which is the primary reason for home health care: UTI, DIARRHEA,HYPERLGYCEMIA,URETEROLITHISSIS Half-Way: Patient can benefit from nursing services for adls, medications, etc. Physical Therapy: Patient would benefit from PT for increase stability and gait balance Patient would benefit from OT for adl support , she would also benefit from OT. Homebound: Unable to leave home without assistance 3. Certification and Authentication I certify that I composed the above information based on my clinical judgement relating to this patient's medical condition and, if applicable, clinical findings communicated to me by the NPP or inpatient physician who performed the Home Health Referral. All further orders will be obtained through _Marleen Warren__(Community Based Physician - PCP)
[2019-11-14 11:05] LABS: HCT 28.5 % (36.0-46.0); HGB 9.3 g/dL (11.2-15.7); MCV 96.3 fL (80-95); RBC 2.96 10^6/uL (3.93-5.22); WBC 16.27 10^3/uL (4.4-10.8)
[2019-11-14 11:06] LABS: MCH 31.4 pg (27.0-33.0); MCHC 32.6 % (32.0-36.0); MPV 10.3 fL (8.0-11.0); Platelet Count 317 10^3/uL (130-400); RDW 15.8 % (11.7-14.6); RDW-SD 55.3 fL
[2019-11-14 11:07] LABS: Absolute Eosinophil Count 0.33 10^3/uL (0.0-0.7); Absolute Lymphocyte Count 5.21 10^3/uL (1.2-3.4); Absolute Monocyte Count 1.95 10^3/uL (0.1-0.8); Absolute Neutrophil Count 7.65 10^3/uL (1.2-6.7); Atypical Lymphocytes % 4; Bands % 3; Metamyelocytes % 6; Myelocytes % 1; Nucleated RBC 1 %
[2019-11-14 11:08] LABS: Diff Comment Manual Differential; Polychromasia Present
[2019-11-14 11:37] VITALS: BP 113/64; PULSE 110; RESP 16; TEMP 36.8; O2SAT 97
[2019-11-14] MEDS: Bacitracin 1 PACKET (11:59)
[2019-11-14] MEDS: Insulin Aspart 300 UNITS/3 ML PEN SC ×2 (12:37→12:38)
== END 2019-11-14 12:58 | disposition home health service (06) | DRG 853 ==
LOC: ER 13:08 → ICU 13:23 → MS 11-12 18:13
PROVIDERS: Surgery; Urology; Admitting Provider Internal Medicine; Emergency Provider Physician Assistant; PCP Family Medicine; Visit Provider Internal Medicine
PROC: 0T768DZ Dilation of Right Ureter with Intraluminal Device, Via Natural or Artificial Opening Endoscopic (ICD-10-PCS; CPT 74450; principal; 2019-11-11 07:30)
PROC: 0T768DZ Dilation of Right Ureter with Intraluminal Device, Via Natural or Artificial Opening Endoscopic (ICD-10-PCS; CPT 52332; 2019-11-11 07:30)
PROC: 0DJ68ZZ Inspection of Stomach, Via Natural or Artificial Opening Endoscopic (ICD-10-PCS; CPT 43235; principal; 2019-11-11 12:30)
DX: A41.9 Sepsis, unspecified organism (principal); K26.4 Chronic or unspecified duodenal ulcer with hemorrhage; N13.6 Pyonephrosis; N17.9 Acute kidney failure, unspecified; Z68.43 Body mass index [BMI] 50.0-59.9, adult; I48.20 Chronic atrial fibrillation, unspecified; A09 Infectious gastroenteritis and colitis, unspecified; N39.0 Urinary tract infection, site not specified; K92.2 Gastrointestinal hemorrhage, unspecified; R65.20 Severe sepsis without septic shock; E86.0 Dehydration; E66.01 Morbid (severe) obesity due to excess calories; I10 Essential (primary) hypertension; E78.5 Hyperlipidemia, unspecified; G47.33 Obstructive sleep apnea (adult) (pediatric); M06.9 Rheumatoid arthritis, unspecified; Z99.3 Dependence on wheelchair; Z79.4 Long term (current) use of insulin; I27.20 Pulmonary hypertension, unspecified; R31.9 Hematuria, unspecified; Z79.52 Long term (current) use of systemic steroids; E11.65 Type 2 diabetes mellitus with hyperglycemia; E87.6 Hypokalemia
CPT/HCPCS: 36556; 43239; 52332; 36415; 36416; 36430; 36591; 51701; 71045; 71250; 80048; 80053; 82962; 83690; 84145; 86850; 86900; 86901; 86920; 87040; 87077; 87505; 88305; 93005; 96361; 96365; 96367; 96368; 96375; 99221; 99231; 99232; 99233; 99239; 99252; 99255; 99285; 99291; U0003; 71046; 74176; 74420; 81003; 81015; 83605; 83735; 84443; 84484; 85014; 85018; 85025; 85610; 85730; 87086; 87324; 87798; 93010; 93306; 99223; J0131; J0696; J1200; J1720; J2405; J2704; J3360; J3475; J7512; P9016; Q9967

== ENCOUNTER → 2019-11-11 11:51 | Outpatient (BNVA) | payer MEDICARE, MEDICAID, SELFPAY | PROVIDERS: PCP Family Medicine; Referring Provider Family Medicine; Visit Provider Urology | DX: R69 Illness, unspecified (principal) ==

== ENCOUNTER 2019-11-17 09:41 | Outpatient (REF) | payer MEDICARE, MEDICAID, SELFPAY ==
[2019-11-17 10:43] LABS: HGB 8.8 g/dL (11.2-15.7); MCH 31.1 pg (27.0-33.0); MCHC 31.4 % (32.0-36.0); MCV 98.9 fL (80-95); MPV 9.9 fL (8.0-11.0); Nucleated RBC 1 %; Platelet Count 382 10^3/uL (130-400); RBC 2.83 10^6/uL (3.93-5.22); RDW 15.6 % (11.7-14.6); RDW-SD 55.5 fL; WBC 10.01 10^3/uL (4.4-10.8)
[2019-11-17 10:58] LABS: Absolute Neutrophil Count 5.51 10^3/uL (1.2-6.7); Bands % 4
[2019-11-17 10:59] LABS: Anisocytosis 1+; Diff Comment Manual Differential; Polychromasia Present
[2019-11-17 11:02] LABS: Metamyelocytes % 6
== END 2019-11-17 10:01 ==
LOC: NCHCN 09:41
PROVIDERS: PCP Family Medicine; Visit Provider Family Medicine
DX: N39.0 Urinary tract infection, site not specified (principal); I48.91 Unspecified atrial fibrillation
CPT/HCPCS: 85025

== ENCOUNTER 2019-12-02 20:42 | Outpatient (REF) | payer MEDICARE, MEDICAID, SELFPAY ==
[2019-12-02 13:06] LABS: HCT 32.1 % (36.0-46.0); HGB 9.8 g/dL (11.2-15.7); MCH 29.3 pg (27.0-33.0); MCHC 30.5 % (32.0-36.0); MCV 96.1 fL (80-95); MPV 9.6 fL (8.0-11.0); Platelet Count 401 10^3/uL (130-400); RBC 3.34 10^6/uL (3.93-5.22); RDW 15.5 % (11.7-14.6); RDW-SD 52.4 fL; WBC 6.88 10^3/uL (4.4-10.8)
[2019-12-02 13:18] LABS: Iron 64 ug/dL (50-170); Total Iron Binding Capacity 302 ug/dL (250-450); Transferrin Sat 21 % (15-50)
[2019-12-02 13:45] LABS: BUN 8 mg/dL (7-18); CREATININE 0.81 mg/dL (0.55-1.02); Calcium 8.7 mg/dL (8.5-10.1); Chloride 103 mmol/L (98-107); Ferritin 43 ng/mL (8-252); Folate > 20.0 ng/mL (8.6-20.0); Glucose 189 mg/dL (74-106); Potassium 3.6 mmol/L (3.5-5.1); Sodium 142 mmol/L (136-145); Vitamin B12 995 pg/mL (193-986)
== END 2019-12-02 21:02 ==
LOC: LBN 20:42
PROVIDERS: PCP Family Medicine; Visit Provider Family Medicine
DX: D64.0 Hereditary sideroblastic anemia (principal)
CPT/HCPCS: 80048; 85027; 82607; 82728; 82746; 83540; 83550

== ENCOUNTER 2019-12-07 16:40 | Outpatient (REF) | payer MEDICARE, MEDICAID, SELFPAY ==
[2019-12-09 22:14] LABS: SARS-CoV-2 RNA Undetected (Undetected)
== END 2019-12-07 17:00 ==
LOC: NCHCN 16:40
PROVIDERS: PCP Family Medicine; Visit Provider Nurse Practitioner Family
DX: Z20.828 Contact with and (suspected) exposure to other viral communicable diseases (principal)
CPT/HCPCS: U0003

== ENCOUNTER 2019-12-13 07:44 | Day surgery (SDC) | payer MEDICARE, MEDICAID, SELFPAY ==
[2019-12-13] VITALS (7 sets, daily range): BP systolic 83–142; BP diastolic 45–84; PULSE 82–104; RESP 14–20; TEMP 36.1–36.6; O2SAT 92–98
[2019-12-13] MEDS: Lactated Ringers 1,000 ML 80 ML IV ×2 (08:52→12:00)
--- NOTE | 2019-12-13 10:03 | W.PM.HP.N ---
Date of service: 12/13/19 Time of Service: 10:07 Assessment and Plan Assessment and plan (1) Ureterolithiasis: Status: Acute Assessment and plan: We will plan on removing her ureteral stent and performing ureteroscopy with holmium laser lithotripsy of the ureteral stone. Once the ureteral stone has been addressed, we will plan on treating as much of her right renal stone burden as it is safely possible under this anesthetic. She understands that we may need a staged approach given the amount of stone burden present. (2) Bilateral nephrolithiasis: Status: Chronic History of Present Illness History of Present Illness Chief Complaint: Right ureteral stone Narrative: This is a 74-year-old woman who was recently hospitalized with E. coli sepsis. She was found to have an obstructing right proximal ureteral stone as well as multiple nonobstructing stones in the right kidney. She was treated with antibiotics and a right ureteral stent placement. Clinically, she has improved. She has no fever or chills. She no longer has flank pain. She presents now for ureteroscopy and holmium laser lithotripsy of her ureteral stone and any renal stones that can be accessed. Review of Systems Narrative: No fevers or chills No vision change. She has had a recent sore throat which has improved History of diabetes. No thyroid dysfunction No sputum production or hemoptysis. Chronic shortness of breath from COPD No chest pain. History of atrial fibrillation No nausea, vomiting, hepatitis No seizures, strokes or peripheral neuropathy No bleeding disorders or anemia No gout [facility] Medical History Ambulatory dysfunction (Inactive) Atrial fibrillation (Chronic) C. difficile colitis (Acute) Diabetes (Chronic) Duodenal ulcer (Acute) HTN (hypertension) (Chronic) Hx of hyperlipidemia (Acute) Obesity, morbid, BMI 40.0-49.9 (Inactive) Obstructive sleep apnea (Suspected) Palliative care patient (Acute) Pulmonary hypertension (Inactive) mild Rheumatoid arteritis (Acute) Rheumatoid arthritis (Inactive) Surgical History History of cystoscopy (Acute) History of hysterectomy (Chronic) Hx of cholecystectomy (Chronic) Social History Smoking/Tobacco Use Status: Former Tobacco Use Alcohol Intake: current Alcohol Intake frequency: holidays/special occasions only Drug use: Never Substance use type: does not use Do you feel safe at home: Yes Do you feel safe in your relationship?: Yes Additional Social history: Lives with her Valeriy on [facility] in [facility], moving to handicapped apartment They moved up here from [place] to be near their daughter. 2 sons in [place] area. 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 Meds Home Medications and Allergies Home Medications Medication Instructions Recorded Confirmed Type Livalo 1 mg PO DAILY 07/21/13 12/13/19 History diazepam 2 mg PO DAILY PRN 07/21/13 12/10/19 History duloxetine [Cymbalta] 60 mg PO DAILY 07/21/13 12/13/19 History losartan 50 mg PO DAILY 07/21/13 12/13/19 History prednisone 5 mg PO DAILY 07/21/13 12/13/19 History Victoza 2-Tree 1.8 mg SQ HS ml 12/23/16 12/13/19 History lutein 20 mg PO DAILY 12/23/16 12/13/19 History mecobalamin (vitamin B12) 1,000 mcg SUBLINGUAL DAILY 12/23/16 12/13/19 History melatonin 10 mg PO HS 12/23/16 12/13/19 History multivitamin [Daily Value] 1 ea PO DAILY 12/23/16 12/13/19 History Vitamin C 1,000 mg PO DAILY 10/31/17 12/13/19 History cholecalciferol (vitamin D3) 5,000 unit PO DAILY 10/31/17 12/13/19 History Darius Durand U-300 Insulin 90 unit SUBCUT QAM 10/10/18 12/13/19 History bupropion HCl [Wellbutrin SR] 100 mg PO BID 10/10/18 12/13/19 History diltiazem HCl 300 mg PO DAILY #30 cap 10/10/18 12/13/19 Rx docusate sodium [Colace] 100 mg PO TID PRN PRN #30 cap 10/10/18 12/10/19 Rx furosemide [Lasix] 20 mg PO DAILY #10 tab 10/10/18 12/13/19 Rx Calcium 600 + D(3) 1 cap PO DAILY 11/09/19 12/10/19 History Humalog KwikPen Insulin 30 unit SUBCUT AC 11/09/19 12/10/19 History cetirizine 10 mg PO DAILY 11/09/19 12/13/19 History coenzyme Q10 100 mg PO DAILY 11/09/19 11/09/19 History colesevelam 625 mg PO BID 11/09/19 12/13/19 History metoprolol succinate 150 mg PO DAILY 11/09/19 12/13/19 History vitamin B complex 1 tab PO DAILY 11/09/19 12/13/19 History pantoprazole 40 mg PO BID@0730,1999 #30 tab 11/14/19 12/13/19 Rx sucralfate 1 g PO AC & HS #120 tab 11/14/19 12/13/19 Rx tamsulosin 0.4 mg PO DAILY #30 cap 11/14/19 12/13/19 Rx Allergies Allergy/AdvReac Type Severity Reaction Status Date / Time atorvastatin AdvReac Intermediate leg cramps Unverified 12/13/19 08:09 lisinopril AdvReac Intermediate cough Unverified 12/13/19 08:09 Exam Const General: cooperative and no acute distress Nutritional Appearance: obese Neck Neck: other (thick) Resp Auscultation: clear to auscultation bilaterally and diminished lung sounds Cardio Rhythm: abnormal rhythm GI Palpation: soft and no masses Neuro General: patient alert and patient awake Results Last Vital Signs Temp 36.1 C L 12/13/19 08:18 Pulse 104 H 12/13/19 08:18 Resp 20 12/13/19 08:18 BP 137/84 12/13/19 08:18 Pulse Ox 93 L 12/13/19 08:18 COVID-19 Screening Have you,or household,traveled outside [place] in last 14 days?: No Had IN PERSON contact w/suspected or confirmed C-19 person: No
[2019-12-13] MEDS: MEROPENEM 1 GM in Normal Saline 100 ML IVPB (11:00)
[2019-12-13] MEDS: Lidocaine 2% Jelly 6 ML SYR (11:30)
[2019-12-13] MEDS: Omnipaque 300 MG/ML 50 ML BTL (11:52)
--- NOTE | 2019-12-13 12:45 | DI.RAD_ITS ---
EXAM: XR RETROGRADE IN OR CLINICAL HISTORY: RIGHT URETERAL STONE TECHNIQUE: 2D and realtime digital imaging was performed. CONTRAST MATERIAL: Refer to procedure report. COMPARISON: No exams were available for comparison FINDINGS: Fluoroscopy was provided for Dr. Fernandez during the performance of a retrograde evaluation of the karla l collecting system and placement of a nephroureteral stent. Please refer to the procedure report fo r complete details. Fluoro time: 40.9 seconds IMPRESSION: RADIATION DOSE DELIVERED:
--- NOTE | 2019-12-13 12:45 | W.PM.DSUDISC ---
Discharge Plan Disposition Patient Disposition: HOME Condition: Stable Discharge Details Attending Provider: Andres Fernandez Primary Care Provider: Marleen Warren Home Meds and New Rx's Prescriptions: No Action multivitamin [Daily Value] 1 EACH tablet 1 ea PO DAILY RF: 0 lutein 20 MG capsule 20 mg PO DAILY RF: 0 Victoza 2-Tree 0.6 MG/0.1 ML pen injector 1.8 mg SQ HS RF: 0 melatonin 10 MG capsule 10 mg PO HS RF: 0 mecobalamin (vitamin B12) 1,000 MCG tablet,disintegrating 1,000 mcg Sublingual DAILY RF: 0 Vitamin C 1,000 MG tablet extended release 1,000 mg PO DAILY RF: 0 cholecalciferol (vitamin D3) 1,000 UNIT capsule 5,000 unit PO DAILY RF: 0 losartan 50 MG tablet 50 mg PO DAILY RF: 0 prednisone 5 MG tablet 5 mg PO DAILY RF: 0 diazepam 2 MG tablet 2 mg PO DAILY PRNRF: 0 duloxetine [Cymbalta] 60 MG capsule,delayed release(DR/EC) 60 mg PO DAILY RF: 0 Livalo 2 MG tablet 1 mg PO DAILY RF: 0 Toujeo SoloStar U-300 Insulin 300 unit/mL (1.5 mL) Insulin Pen 90 unit SUBCUT QAM RF: 0 bupropion HCl [Wellbutrin SR] 100 mg Tablet Sustained-Release 12 Hr 100 mg PO BID RF: 0 diltiazem HCl 300 mg Capsule,Extended Release 24hr 300 mg PO DAILY Qty: 30 RF: 0 docusate sodium [Colace] 100 mg Capsule 100 mg PO TID PRN PRN (Reason: constipation) Qty: 30 RF: 0 furosemide [Lasix] 20 mg tablet 20 mg PO DAILY Qty: 10 RF: 0 Calcium 600 + D(3) 600 mg calcium- 200 unit Capsule 1 cap PO DAILY RF: 0 coenzyme Q10 100 mg Capsule 100 mg PO DAILY RF: 0 Humalog KwikPen Insulin 200 unit/mL (3 mL) insulin pen 30 unit SUBCUT AC RF: 0 metoprolol succinate 50 mg tablet extended release 24 hr 150 mg PO DAILY RF: 0 colesevelam 625 mg tablet 625 mg PO BID RF: 0 vitamin B complex Tablet 1 tab PO DAILY RF: 0 cetirizine 10 mg Tablet 10 mg PO DAILY RF: 0 sucralfate 1 gram Tablet 1 g PO AC & HS Qty: 120 RF: 0 tamsulosin 0.4 mg Capsule 0.4 mg PO DAILY Qty: 30 RF: 0 pantoprazole 40 mg Tablet,Delayed Release (Dr/Ec) 40 mg PO BID@ Qty: 30 RF: 0 Discharge Instructions Additional Instructions: no need to strain urine no office appt needed, but pt will be contacted by my office for a 2nd look procedure to make sure all stone fragments have been removed Activity:: Activity as Tolerated Shower/Bathe:: 24 hours Diet:: As Tolerated Discharge Orders Discharge Orders: Discharge Order (Routine); Ordered 12/13/19 Ordered By: Andres Fernandez DS: Diagnosis Discharge Diagnosis (1) Ureterolithiasis: Status: Acute (2) Bilateral nephrolithiasis: Status: Chronic
--- NOTE | 2019-12-13 12:52 | W.PM.OP ---
Date of service: 12/13/19 Time of Service: 12:52 Operative Note Operative Note DATE OF PROCEDURE: 12/13/19 PRE-OP DIAGNOSIS: right ureteral and renal stones POST-OP DIAGNOSIS: same PROCEDURE: Cystoiscopy, remove right ureteral stent, right retrograde pyelogram, right flexible ureteroscopy with holmium laser lithotripsy of stone, stone extraction, insert stent SURGEON: Andres Fernandez ANESTHESIA: GETA ESTIMATED BLOOD LOSS: 100 PATHOLOGY: other (stone for chemical analysis) COMPLICATIONS: None Patient was transported to: PACU Patient's condition: stable Implants: 7 Citizen Of [place] 22 to 30 cm right ureteral stent Indications: This is a 74-year-old woman who was previously seen when she was hospitalized with E. coli sepsis. She was found to have a right proximal ureteral stone that was causing hydronephrosis. She also had nonobstructing stones in the right kidney. She was treated acutely with a stent placement and IV antibiotics. She presents now for ureteroscopy with holmium laser lithotripsy of her right-sided stones Findings: large stone burden in right kidney Procedure Description: The patient was brought to the operating room on 12/13/2019. She was given preoperative IV antibiotics. After successful induction of general anesthesia, she was placed in the dorsal lithotomy position. Her genitalia was prepped and draped. 2% Xylocaine jelly was instilled into the urethra. A 22 Citizen Of [place] rigid cystoscope was passed through the urethra into the bladder. The bladder was inspected with a 30 degree lens. The right ureteral orifice was visualized and the stent could be seen protruding from the orifice. The stent was grasped with alligator forceps and brought to the level of the urethral meatus. A Glidewire was then advanced through the lumen of the stent. The stent was removed leaving the wire in place. A dual-lumen catheter was then advanced over the wire. A retrograde pyelogram was obtained by injecting Omnipaque through the second lumen of the dual lumen catheter. This outlined multiple filling defects in the right collecting system. A second wire was positioned through the dual-lumen catheter. We chose 1 of the wires as a working wire and the other is a safety wire. We then passed a ureteral access sheath over the working wire leaving the safety wire in place. The flexible ureteroscope was then passed through the lumen of the access sheath. No residual stones were seen in the ureter, but multiple stones were identified in both the upper and lower pole calyces in the kidney. There are also stones within the renal pelvis. We used a 272 ?m holmium laser fiber to fracture the stones. We also used dusting settings on the stones as well. The large stone fragments were extracted using a 0 tip stone basket. A large amount of the dusted material was still seen within the collecting system. As visibility decreased, we elected to replace the stent and come back in a few weeks for a second look procedure. We passed a 7 Citizen [place] variable length stent over the safety wire. The proximal end of the stent was curled in the renal pelvis and the distal end was curled within the bladder. The positioning of the stent was confirmed both fluoroscopically and cystoscopically. The patient tolerated this procedure well with no complications.
[2019-12-13] MEDS: Phenazopyridine 200 MG TAB PO (14:24)
[2019-12-21 18:15] LABS: Source: Right Kidney
== END 2019-12-13 15:15 | disposition home or self-care (01) ==
PROVIDERS: PCP Family Medicine; Visit Provider Urology
PROC: (CPT 52356; principal; 2019-12-13 08:45)
DX: N20.1 Calculus of ureter (principal); N20.0 Calculus of kidney; Z96.0 Presence of urogenital implants
CPT/HCPCS: 52356; NC; 74420; 82365; J1720; Q9967

== ENCOUNTER → 2019-12-23 10:52 | Outpatient (BNVA) | payer MEDICARE, MEDICAID, SELFPAY | PROVIDERS: PCP Family Medicine; Referring Provider Family Medicine; Visit Provider Surgery | DX: K26.9 Duodenal ulcer, unspecified as acute or chronic, without hemorrhage or perforation (principal); Z11.59 Encounter for screening for other viral diseases; I10 Essential (primary) hypertension; E11.9 Type 2 diabetes mellitus without complications | CPT/HCPCS: 99214 ==

== ENCOUNTER → 2019-12-28 13:48 | Outpatient (BNVA) | payer MEDICARE, MEDICAID, SELFPAY | PROVIDERS: PCP Family Medicine; Referring Provider Family Medicine; Visit Provider Internal Medicine Cardiovascular Disease | DX: I48.20 Chronic atrial fibrillation, unspecified (principal); R60.0 Localized edema; E11.9 Type 2 diabetes mellitus without complications; Z79.4 Long term (current) use of insulin | CPT/HCPCS: 99204; 99215 ==

== ENCOUNTER 2020-01-07 07:55 | Outpatient (CLI) | payer MEDICARE, MEDICAID, SELFPAY ==
[2020-01-09 02:28] LABS: COVID-19 RT-PCR Result NEGATIVE (Negative)
== END 2020-01-07 08:15 ==
PROVIDERS: PCP Family Medicine; Visit Provider Urology
DX: Z11.59 Encounter for screening for other viral diseases (principal); Z01.818 Encounter for other preprocedural examination
CPT/HCPCS: U0003

== ENCOUNTER → 2020-01-17 12:08 | Outpatient (BNVA) | payer MEDICARE, MEDICAID, SELFPAY | PROVIDERS: PCP Family Medicine; Referring Provider Family Medicine; Visit Provider Urology | DX: N20.0 Calculus of kidney (principal); E11.9 Type 2 diabetes mellitus without complications; I10 Essential (primary) hypertension; Z96.0 Presence of urogenital implants | CPT/HCPCS: 99213; 99442 ==

== ENCOUNTER 2020-02-21 19:12 | Outpatient (REF) | payer MEDICARE, MEDICAID, SELFPAY ==
[2020-02-21 19:17] LABS: HCT 44.6 % (36.0-46.0); HGB 13.9 g/dL (11.2-15.7); MCH 29.5 pg (27.0-33.0); MCHC 31.2 % (32.0-36.0); MCV 94.7 fL (80-95); MPV 10.6 fL (8.0-11.0); Platelet Count 355 10^3/uL (130-400); RBC 4.71 10^6/uL (3.93-5.22); RDW 15.1 % (11.7-14.6); RDW-SD 52.8 fL; WBC 8.17 10^3/uL (4.4-10.8)
[2020-02-21 19:48] LABS: Hemoglobin A1C 9.3 % (<5.7)
[2020-02-21 19:55] LABS: Anion Gap 14.4 mmol/L (3-11); BUN 12 mg/dL (7-18); CO2 24.6 mmol/L (21.0-32.0); CREATININE 1.21 mg/dL (0.55-1.02); Calcium 8.8 mg/dL (8.5-10.1); Chloride 98 mmol/L (98-107); Ferritin 36 ng/mL (8-252); Glucose 400 mg/dL (74-106); Sodium 137 mmol/L (136-145)
== END 2020-02-21 19:32 ==
LOC: NCHCN 19:12
PROVIDERS: PCP Family Medicine; Visit Provider Family Medicine
DX: D64.9 Anemia, unspecified (principal); E11.65 Type 2 diabetes mellitus with hyperglycemia
CPT/HCPCS: 80048; 85027; 82728; 83036

== ENCOUNTER 2020-03-03 02:26 | Outpatient (CLI) | payer MEDICARE, MEDICAID, SELFPAY ==
[2020-03-05 11:50] LABS: SARS-CoV-2 RNA Not Detected (NotDetected); SARS-CoV-2 RNA Source Nasal/Nares
== END 2020-03-03 02:46 ==
PROVIDERS: PCP Family Medicine; Visit Provider Urology
DX: Z11.59 Encounter for screening for other viral diseases (principal)
CPT/HCPCS: U0003

== ENCOUNTER 2020-03-06 06:13 | Day surgery (SDC) | payer MEDICARE, MEDICAID, SELFPAY ==
[2020-03-06] VITALS (8 sets, daily range): BP systolic 94–130; BP diastolic 30–71; PULSE 82–94; RESP 14–22; TEMP 36–36.4; O2SAT 92–95
[2020-03-06] MEDS: Lactated Ringers 1,000 ML 80 ML IV (07:00)
--- NOTE | 2020-03-06 07:04 | W.PM.HP.N ---
Date of service: 03/06/20 Time of Service: 07:06 Assessment and Plan Assessment and plan (1) Calculus of proximal right ureter: Status: Acute Assessment and plan: We will go ahead with repeat ureteroscopy to insure all remaining stone fragments have been removed. History of Present Illness History of Present Illness Chief Complaint: Kidney stone Narrative: This is a 74 year old woman who was initially seen when she presented with E Coli sepsis. She had right hydronephrosis, so she was treated with a ureteral stent and culture specific antibiotics. She then underwent right ureteroscopy, holmium laser lithotripsy of her kidney/ureteral stone and replacement of her stent. She presents now for stent removal and repeat ureteroscopy to insure all remaining stone fragments have been dealt with. She will be having a upper endoscopy with Dr Colvin while under this same anesthesia. Review of Systems Narrative: No fevers or chills No vision change or dysphasia No diabetes or thyroid No shortness of breath, cough or hemoptysis No chest pain or palpitations No nausea, vomiting, hepatitis, ulcers, jaundice, diarrhea or constipation No seizures, strokes or peripheral neuropathy No bleeding disorders or anemia No gout or arthralgia [facility] Medical History Ambulatory dysfunction Atrial fibrillation C. difficile colitis Diabetes Duodenal ulcer HTN (hypertension) Hx of hyperlipidemia Obesity, morbid, BMI 40.0-49.9 Obstructive sleep apnea Palliative care patient Pulmonary hypertension mild Rheumatoid arteritis Rheumatoid arthritis Surgical History History of cystoscopy History of hysterectomy Hx of cholecystectomy Social History Smoking/Tobacco Use Status: Former Tobacco Use Smoking risk assessment performed?: Yes Alcohol Intake: current Alcohol Intake frequency: holidays/special occasions only Drug use: Never Substance use type: does not use Do you feel safe at home: Yes Do you feel safe in your relationship?: Yes Additional Social history: Lives with her Valeriy [facility]. They moved up here from [place] to be near their daughter. 2 sons in [place] area. 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 Meds Home Medications and Allergies Home Medications Medication Instructions Recorded Confirmed Type Livalo 1 mg PO DAILY 07/21/13 03/06/20 History diazepam 2 mg PO DAILY PRN 07/21/13 03/06/20 History duloxetine [Cymbalta] 60 mg PO DAILY 07/21/13 03/06/20 History losartan 50 mg PO DAILY 07/21/13 03/06/20 History prednisone 5 mg PO DAILY 07/21/13 03/06/20 History Victoza 2-Tree 1.8 mg SQ HS ml 12/23/16 03/06/20 History lutein 20 mg PO DAILY 12/23/16 03/06/20 History mecobalamin (vitamin B12) 1,000 mcg SUBLINGUAL DAILY 12/23/16 03/06/20 History melatonin 10 mg PO HS 12/23/16 03/06/20 History multivitamin [Daily Value] 1 ea PO DAILY 12/23/16 03/06/20 History cholecalciferol (vitamin D3) 5,000 unit PO DAILY 10/31/17 03/06/20 History Abrahanujoni Durand U-300 Insulin 90 unit SUBCUT QAM 10/10/18 03/06/20 History bupropion HCl [Wellbutrin SR] 100 mg PO BID 10/10/18 03/06/20 History diltiazem HCl 300 mg PO DAILY #30 cap 10/10/18 03/06/20 Rx furosemide [Lasix] 20 mg PO DAILY #10 tab 10/10/18 03/06/20 Rx Calcium 600 + D(3) 1 cap PO DAILY 11/09/19 03/06/20 History Humalog KwikPen Insulin 30 unit SUBCUT AC 11/09/19 03/06/20 History cetirizine 10 mg PO DAILY 11/09/19 03/06/20 History coenzyme Q10 100 mg PO DAILY 11/09/19 03/06/20 History colesevelam 625 mg PO BID 11/09/19 03/06/20 History metoprolol succinate 200 mg PO DAILY 11/09/19 03/06/20 History vitamin B complex 1 tab PO DAILY 11/09/19 03/06/20 History pantoprazole 40 mg PO BID@0730,2000 #30 tab 11/14/19 03/06/20 Rx sucralfate 1 g PO AC & HS #120 tab 11/14/19 03/06/20 Rx tamsulosin 0.4 mg PO DAILY #30 cap 11/14/19 03/06/20 Rx Allergies Allergy/AdvReac Type Severity Reaction Status Date / Time atorvastatin AdvReac Intermediate leg cramps Unverified 03/06/20 06:28 lisinopril AdvReac Intermediate cough Unverified 03/06/20 06:28 Exam Const General: cooperative and comfortable Nutritional Appearance: obese Neck Neck: supple Resp Effort & Inspection: normal respiratory effort Auscultation: clear to auscultation bilaterally Cardio Rate: regular rate Rhythm: abnormal rhythm with ectopic beats GI Palpation: soft and no masses Neuro General: patient alert, patient awake and patient oriented x3 Results Last Vital Signs Temp 36.4 C L 03/06/20 06:15 Pulse 94 H 03/06/20 06:15 Resp 22 03/06/20 06:15 BP 116/51 L 03/06/20 06:15 Pulse Ox 95 03/06/20 06:15 COVID-19 Screening Have you, or household traveled for leisure in last 14 days?: No Had IN PERSON contact w/suspected or confirmed C-19 person: No
--- NOTE | 2020-03-06 07:15 | DI.RAD_ITS ---
EXAM: XR RETROGRADE IN OR CLINICAL HISTORY: stone. TECHNIQUE: Fluoroscopy was provided for the referring physician for guidance with performing retrogr claus procedure. COMPARISON: No exams were available for comparison FINDINGS: Fluoroscopy was provided for Dr. Fernandez for guidance with performing a retrograde examination. Please see procedure note for details. Fluoro Time: 31.5 seconds RADIATION DOSE DELIVERED:
[2020-03-06] MEDS: MEROPENEM 1 GM in Normal Saline 100 ML IVPB (07:56)
--- NOTE | 2020-03-06 08:10 | STOM_PTH ---
PATIENT: Elizabeth Chester LOC: [facility] U#:[id number] AGE/SX: 74/F ROOM: RE03/06/[address]: Andres Fernandez MD : 1945 BED: DIS: 03/06/2020 SPEC #: [id number] RECD: 03/06/20 12:38 STATUS: SD REQ #: [id number] CARROL: 03/06/20 08:[address]: Andres Fernandez DEPT: Surgical Specimen RECD BY: Nathaly Marks ENTERED: 03/06/20 12:38 SP TYPE: STOMACH OTHR DR: Marleen Warren Tissues: 1 - STOMACH BIOPSY Procedures: GROSS AND MICRO LEVEL 4 Comments: [id number]
--- NOTE | 2020-03-06 08:22 | W.PM.ENDDOP ---
Date of service: 03/06/20 Time of Service: 08:22 Endoscopy Report DATE OF PROCEDURE: 03/06/20 PRE-OP DIAGNOSIS: History of duodenal ulcer POST-OP DIAGNOSIS: other (Mild gastritis) PROCEDURE: EGD with gastric biopsy SURGEON: Ilana Colvin ANESTHESIA: GETA INDICATIONS: This 74-year-old woman presented in October with urosepsis. She also developed melena and was found to have a to have several duodenal ulcers. She had come into the hospital on Eliquis. She is also taking prednisone and Celebrex. She presents for follow-up upper endoscopy after several months of antacids. She denies any abdominal pain bloody or black stools. PROCEDURE DESCRIPTION: The patient is placed supine on the operating table and after induction of general anesthetic had the endoscope advanced into her esophagus under direct visualization. The scope was passed through the stomach and into the duodenum. This showed marked improvement with no evidence of the shallow or large ulcerations that were present before. She had an ulcer in the second portion of the duodenum as well as in the duodenal bulb previously. The stomach itself showed some minimal gastritis in the antrum. Biopsies were taken from this region to reevaluate for H. pylori. Retroflexed view of the fundus and lesser curvature was normal. The GE junction showed no inflammation masses Brown's or strictures. The air was suctioned from the stomach and the scope withdrawn with no other esophageal lesions found. She tolerated this portion of the procedure well and then had a procedure done with Dr. Fernandez. I think she can stop the Carafate. She should continue her proton pump inhibitor and consideration could be given to resuming her Eliquis.
--- NOTE | 2020-03-06 09:28 | W.PM.DSUDISC ---
Discharge Plan Disposition Patient Disposition: HOME Condition: Stable Discharge Details Attending Provider: Andres Fernandez Primary Care Provider: Marleen Warren Home Meds and New Rx's Prescriptions: No Action tramadol 50 mg tablet 50 mg PO Q6H PRN (Reason: pain) Qty: 20 RF: 0 multivitamin [Daily Value] 1 EACH tablet 1 ea PO DAILY RF: 0 lutein 20 MG capsule 20 mg PO DAILY RF: 0 Victoza 2-Tree 0.6 MG/0.1 ML pen injector 1.8 mg SQ HS RF: 0 melatonin 10 MG capsule 10 mg PO HS RF: 0 mecobalamin (vitamin B12) 1,000 MCG tablet,disintegrating 1,000 mcg Sublingual DAILY RF: 0 cholecalciferol (vitamin D3) 1,000 UNIT capsule 5,000 unit PO DAILY RF: 0 losartan 50 MG tablet 50 mg PO DAILY RF: 0 prednisone 5 MG tablet 5 mg PO DAILY RF: 0 diazepam 2 MG tablet 2 mg PO DAILY PRNRF: 0 duloxetine [Cymbalta] 60 MG capsule,delayed release(DR/EC) 60 mg PO DAILY RF: 0 Livalo 2 MG tablet 1 mg PO DAILY RF: 0 Toujeo SoloStar U-300 Insulin 300 unit/mL (1.5 mL) Insulin Pen 90 unit SUBCUT QAM RF: 0 bupropion HCl [Wellbutrin SR] 100 mg Tablet Sustained-Release 12 Hr 100 mg PO BID RF: 0 diltiazem HCl 300 mg Capsule,Extended Release 24hr 300 mg PO DAILY Qty: 30 RF: 0 furosemide [Lasix] 20 mg tablet 20 mg PO DAILY Qty: 10 RF: 0 Calcium 600 + D(3) 600 mg calcium- 200 unit Capsule 1 cap PO DAILY RF: 0 coenzyme Q10 100 mg Capsule 100 mg PO DAILY RF: 0 Humalog KwikPen Insulin 200 unit/mL (3 mL) insulin pen 30 unit SUBCUT AC RF: 0 metoprolol succinate 50 mg tablet extended release 24 hr 200 mg PO DAILY RF: 0 colesevelam 625 mg tablet 625 mg PO BID RF: 0 vitamin B complex Tablet 1 tab PO DAILY RF: 0 cetirizine 10 mg Tablet 10 mg PO DAILY RF: 0 sucralfate 1 gram Tablet 1 g PO AC & HS Qty: 120 RF: 0 pantoprazole 40 mg Tablet,Delayed Release (Dr/Ec) 40 mg PO BID@0730,2000 Qty: 30 RF: 0 Discharge Instructions Additional Instructions: No need to strain urine Followup @ 1 week for stent removal - tell my office staff pt has string on her stent Followup appt with me in 6 to 8 weeks with renal US May D/C tamsulosin OK to restart anticoagulants on 03/08/2020 Script for Tramadol sent to pharmacy Activity:: Activity as Tolerated Shower/Bathe:: 24 hours Diet:: As Tolerated Discharge Orders Discharge Orders: Discharge Order (Routine); Ordered 03/06/20 Ordered By: Andres Fernandez DS: Diagnosis Discharge Diagnosis (1) Calculus of proximal right ureter: Status: Acute
--- NOTE | 2020-03-06 09:46 | W.PM.OP ---
Date of service: 03/06/20 Time of Service: 09:46 Operative Note Operative Note DATE OF PROCEDURE: 03/06/20 PRE-OP DIAGNOSIS: right ureteral stone POST-OP DIAGNOSIS: same (Mild gastritis) PROCEDURE: Cystoscopy, remove right ureteral stent, right retrograde pyelogram, right flexible ureteroscopy, stone manipulation, holmium laser lithotripsy of stones, insert right ureteral stent SURGEON: Andres Fernandez ANESTHESIA: GETA ESTIMATED BLOOD LOSS: 50 PATHOLOGY: none sent Implants: 4.8 Occitan by 22 to 30 cm stent in right ureter Indications: This is a 74-year-old woman who initially presented to the hospital with urosepsis. She was found to have E. coli in her blood in urine. She had right hydronephrosis due to a proximal right ureteral stone. She was treated with stent placement and IV antibiotics. Once her infection cleared, she was brought to the operating room for flexible ureteroscopy with holmium laser lithotripsy of her stones. At that time, the right ureteral stone had been pushed back but the fragments were evacuated. Visibility became difficult so we placed a ureteral stent implant on a staged procedure. Patient comes back now for repeat ureteroscopy and treatment of any residual fragments. Findings: Remaining stone debris in the upper and lower pole calyces Procedure Description: The patient was brought to the operating room on 03/06/2020. She was given preoperative IV antibiotics. After successful induction of general anesthesia, she underwent upper endoscopy by Dr. Whatley of the general surgery team. This procedure will be documented elsewhere in the chart. He was then placed in the dorsal lithotomy position. Genitalia is prepped and draped. 2% Xylocaine jelly was instilled into the urethra to act as a local anesthetic. A 22 Occitan rigid cystoscope was passed through the urethra into the bladder. The bladder was inspected with a 30 degree lens. A stent could be seen protruding from the right ureteral orifice. The stent was grasped with alligator forceps and brought to the level of the urethral meatus. The Glidewire was then advanced through the lumen of the ureteral stent. Once the wire was seen in the upper pole calyx, the stent was removed leaving the wire in place. A dual-lumen catheter was advanced over the wire. Retrograde pyelogram was obtained by injecting Omnipaque through the second lumen of the dual-lumen catheter. No obstructing ureteral stones were identified. We then passed a second wire and remove the dual-lumen catheter we chose one of the wires as a working wire as a safety wire. We passed a ureteral access sheath over the working wire. The flexible ureteroscope was then passed through the ureteral access sheath and the calyces were inspected. Multiple small stone fragments were identified. Some of these were grasped and a ZeroTip stone basket and extracted. There were few larger stone fragments in the upper pole calyx. These were treated with a 272 ?m holmium laser fiber. We used a power setting of 200 and the rate of 8 to dust these remaining fragments. The larger stone was identified in the lower pole calyx. The stone was grasped in a ZeroTip stone basket and repositioned in the renal pelvis. The stone was then bumped up into the upper pole calyx where it was treated with the holmium laser as well. At the completion of the procedure only small stone fragments and dust remained. Some blood clots were seen in the, so we elected to place a ureteral stent temporarily. We chose a 4.8 Occitan variable length stent and advanced it over the safety wire. The stent was positioned with the proximal curl in the upper pole calyx and the distal curl in the bladder. The safety string was left in place and brought through the patient's urethra. The end of the safety string was tucked into the vaginal cavity. The stent will be removed in approximately 1 week. She tolerated this procedure well with no complications.
[2020-03-06] MEDS: fentaNYL 100 MCG/2 ML VIAL IVP (10:16)
[2020-03-06] MEDS: Omnipaque 300 MG/ML 50 ML BTL (11:13)
[2020-03-06] MEDS: Lidocaine 2% Jelly 6 ML SYR (11:14)
[2020-03-06] MEDS: Phenazopyridine 200 MG TAB PO (11:19)
[2020-03-06] MEDS: traMADol 50 MG TAB PO (11:20)
== END 2020-03-06 12:21 | disposition home or self-care (01) ==
PROVIDERS: Surgery; PCP Family Medicine; Visit Provider Urology
PROC: (CPT 52356; principal; 2020-03-06 07:30)
PROC: 0DJ68ZZ Inspection of Stomach, Via Natural or Artificial Opening Endoscopic (ICD-10-PCS; CPT 43235; 2020-03-06 07:30)
DX: N20.0 Calculus of kidney (principal); N20.1 Calculus of ureter; K31.9 Disease of stomach and duodenum, unspecified; K26.9 Duodenal ulcer, unspecified as acute or chronic, without hemorrhage or perforation; K29.70 Gastritis, unspecified, without bleeding; E66.01 Morbid (severe) obesity due to excess calories; G47.33 Obstructive sleep apnea (adult) (pediatric); I10 Essential (primary) hypertension; E11.9 Type 2 diabetes mellitus without complications; I48.91 Unspecified atrial fibrillation
CPT/HCPCS: 52356; 43239; 88305; NC; 74420; J2001; J2405; J2704; J3010; Q9967

== ENCOUNTER 2020-03-07 16:09 | Emergency (ER) | payer MEDICARE, MEDICAID, SELFPAY ==
[2020-03-07] VITALS (26 sets, daily range): BP systolic 104–182; BP diastolic 54–151; PULSE 94–155; RESP 13–28; TEMP 36.2; O2SAT 89–97
--- NOTE | 2020-03-07 16:13 | ED.GENADUL_ITS ---
Discharge Plan Disposition Patient Disposition: HOME Condition: Improving Discharge Details Clinical Impression: Hyperglycemia, Dehydration, Hyponatremia, Hypomagnesemia, Atrial fibrillation, Tachycardia Primary Care Provider: Marleen Warren ED Provider: Katherine Cm Home Meds and New Rx's Prescriptions: Continued tramadol 50 mg tablet 50 mg PO Q6H PRN (Reason: pain) Qty: 20 RF: 0 ondansetron HCl 8 mg tablet 8 mg PO Q8H PRN (Reason: nausea and vomiting) Qty: 10 RF: 0 prochlorperazine maleate [Compazine] 10 mg tablet 10 mg PO Q6H PRN (Reason: nausea and vomiting) Qty: 15 RF: 0 ketorolac 10 mg tablet 10 mg PO TID Qty: 10 RF: 0 multivitamin [Daily Value] 1 EACH tablet 1 ea PO DAILY RF: 0 lutein 20 MG capsule 20 mg PO DAILY RF: 0 Victoza 2-Tree 0.6 MG/0.1 ML pen injector 1.8 mg SQ HS RF: 0 melatonin 10 MG capsule 10 mg PO HS RF: 0 mecobalamin (vitamin B12) 1,000 MCG tablet,disintegrating 1,000 mcg Sublingual DAILY RF: 0 cholecalciferol (vitamin D3) 1,000 UNIT capsule 5,000 unit PO DAILY RF: 0 losartan 50 MG tablet 50 mg PO DAILY RF: 0 prednisone 5 MG tablet 5 mg PO DAILY RF: 0 diazepam 2 MG tablet 2 mg PO DAILY PRNRF: 0 duloxetine [Cymbalta] 60 MG capsule,delayed release(DR/EC) 60 mg PO DAILY RF: 0 Livalo 2 MG tablet 1 mg PO DAILY RF: 0 Toujeo SoloStar U-300 Insulin 300 unit/mL (1.5 mL) Insulin Pen 90 unit SUBCUT QAM RF: 0 bupropion HCl [Wellbutrin SR] 100 mg Tablet Sustained-Release 12 Hr 100 mg PO BID RF: 0 diltiazem HCl 300 mg Capsule,Extended Release 24hr 300 mg PO DAILY Qty: 30 RF: 0 furosemide [Lasix] 20 mg tablet 20 mg PO DAILY Qty: 10 RF: 0 Calcium 600 + D(3) 600 mg calcium- 200 unit Capsule 1 cap PO DAILY RF: 0 coenzyme Q10 100 mg Capsule 100 mg PO DAILY RF: 0 Humalog KwikPen Insulin 200 unit/mL (3 mL) insulin pen 30 unit SUBCUT AC RF: 0 metoprolol succinate 50 mg tablet extended release 24 hr 200 mg PO DAILY RF: 0 colesevelam 625 mg tablet 625 mg PO BID RF: 0 vitamin B complex Tablet 1 tab PO DAILY RF: 0 cetirizine 10 mg Tablet 10 mg PO DAILY RF: 0 sucralfate 1 gram Tablet 1 g PO AC & HS Qty: 120 RF: 0 pantoprazole 40 mg Tablet,Delayed Release (Dr/Ec) 40 mg PO BID@0730,2000 Qty: 30 RF: 0 Discharge Instructions Instructions: A-fib (Atrial Fibrillation) (ED), Dehydration (ED), Hyponatremia (ED), Hypomagnesemia (ED) Additional Instructions: Please continue to encourage fluids. Please follow post operative instructions. Please call your primary care tomorrow to schedule follow up this week. You are leaving prior to the rest of your blood work. However, you may return at any time for further evaluation. If you develop fevers/chills, difficulty breathing, shortness of breath, pain or other new/worsening symptoms please seek care urgently once again. Referrals: Marleen Warren MD [Primary Care Provider] - Discharge Data Discharge Date/Time-TO BE ENTERED AT DEPARTURE: 03/07/20 20:11 Medical Decision Making Patient is a pleasant 74-year-old female presenting today, brought in via EMS, with chief complaint of fall. Patient reports that she was rushing to the bathroom when she slid out of her wheelchair. She denies any injury at the time of the incident. However, she states that since then she has been having some mild head and neck pain. She states that they do not worsen with movement. States that they called EMS because she was unable to get up from the floor. She advised that if she had not been struck on the floor she would not have come in at all. Patient did have surgery yesterday with Dr. Fernandez for stent placement after multiple procedures for kidney stones. She states that yest erday she was in severe pain and was having dry heaves but both of these seem to have resolved today. States she has been feeling otherwise well today. States she did have 1 episode of diarrhea today with stated this is been ongoing for the past several months without any change. Denies any blood in her stool. Denies any fevers or chills. Denies any back or abdominal pain. On exam, patient is resting comfortably. She is noted to be quite tachycardic with heart rate 152. She does have a known history of atrial fibrillation. She reports that typically she is on Pradaxa but this is held for the perioperative period. She denies any shortness of breath or chest pain. States that when she does have episode of atrial fibrillation is not uncommon for her heart rate to be in the 140s to 150s. She states she did take her metoprolol and diltiazem today. Chart review shows that patient is typically tachycardic in the 110 elevation of her heart rate is unusual. Her blood pressure is typically on the lower side as it is today. Temperature today is normal for the patient. Her abdominal exam is benign. No CVA tenderness. She is full range of motion of her neck but does have some mild midline discomfort. No evidence of head trauma. No pain elsewhere palpation. Will obtain head CT cervical spine that has abundance precaution given her fall. Plan to give small bolus of hydration and will give dose of metoprolol. Patient would like IV acetaminophen for her neck discomfort. Dr. Fernandez did evaluate the patient. He and I discussed her history further. He advised that after her first surgery she did become septic. However, he states that yesterday was her third surgery and she did not have any postoperative complications after the second. He feels that the patient appears to be at her baseline. I did clarify with Dr. Fernandez that the patient may restart her Pradaxa. Labs reviewed. No leukocytosis. Stable H&H. Her lactate is elevated at 2.4. Is likely associated dehydration. Patient's sodium is low at 126 but this corrects to 131 based on her hyperglycemia. Patient's glucose is 400. This is baseline for the patient. Her creatinine is elevated at 1.6 which is unusual for the patient likely associated with dehydration. She also did have a recent surgery. Patient is receiving IV hydration. Plan to recheck a lactate. Patient's magnesium is low at 1.3, will replenish this here. Patient upon is less than 0.05. After patient was given IV hydration and IV dose of metoprolol, heart rate came down to the 90s. She does seem to wax and wane quite quickly likely associated her atrial fibrillation. Patient's repeat lactate was noted to be 7.5. I believe this to be a clinical error. Patient is improving. She reports feeling clinically fine is requesting discharge. I am concerned regarding her atrial fibrillation particular she is not anticoagulated. She will restart her Pradaxa. We did discuss inpatient care but she is declining. She reports that she is feeling well and would like to go home. Patient will follow-up closely with her primary care as well as Dr. Fernandez. Patient is requesting discharge prior to repeat lactate be drawn. Return precautions were discussed. All of her questions and concerns were addressed. There was an error in drawing of the lactate this per nursing staff this was redrawn and found to be 2.1. HPI General Mode of arrival: EMS . Date/Time Provider Initiated Documentation: 03/07/20 16:13 . Limitations to Documentation: no limitations . Information obtained by: patient, EMS and RN notes reviewed . HPI Narrative: Patient is a pleasant 74 year old female brought in via EMS with c/c of fall. She states that she was rushing to the restroom. She is typically in a wheelchair and reports that she was rushing and slid out of her wheelchair. Denies actually injuring herself. Does not believe that she struck her head or loss consciousness. Denies any chest pain or shortness of breath. Says she called EMS that she was having difficulty getting up off of the floor. She is in the postoperative period, She reached out to her surgeon who advised that she come in for evaluation. She reports that yesterday she was having significant pain but that this is improved today. Related Data Home Medications Medication Instructions Recorded Confirmed Livalo 1 mg PO DAILY 07/21/13 03/07/20 diazepam 2 mg PO DAILY PRN 07/21/13 03/07/20 duloxetine [Cymbalta] 60 mg PO DAILY 07/21/13 03/06/20 losartan 50 mg PO DAILY 07/21/13 03/07/20 prednisone 5 mg PO DAILY 07/21/13 03/07/20 Victoza 2-Tree 1.8 mg SQ HS ml 12/23/16 03/07/20 lutein 20 mg PO DAILY 12/23/16 03/07/20 mecobalamin (vitamin B12) 1,000 mcg SUBLINGUAL DAILY 12/23/16 03/07/20 melatonin 10 mg PO HS 12/23/16 03/07/20 multivitamin [Daily Value] 1 ea PO DAILY 12/23/16 03/07/20 cholecalciferol (vitamin D3) 5,000 unit PO DAILY 10/31/17 03/07/20 Darius Durand U-300 Insulin 90 unit SUBCUT QA 10/10/18 03/07/20 bupropion HCl [Wellbutrin SR] 100 mg PO BID 10/10/18 03/07/20 diltiazem HCl 300 mg PO DAILY #30 cap 10/10/18 03/07/20 furosemide [Lasix] 20 mg PO DAILY #10 tab 10/10/18 03/07/20 Calcium 600 + D(3) 1 cap PO DAILY 11/09/19 03/06/20 Humalog KwikPen Insulin 30 unit SUBCUT AC 11/09/19 03/07/20 cetirizine 10 mg PO DAILY 11/09/19 03/07/20 coenzyme Q10 100 mg PO DAILY 11/09/19 03/07/20 colesevelam 625 mg PO BID 11/09/19 03/07/20 metoprolol succinate 200 mg PO DAILY 11/09/19 03/07/20 vitamin B complex 1 tab PO DAILY 11/09/19 03/07/20 pantoprazole 40 mg PO BID@729,1999 #30 tab 11/14/19 03/07/20 sucralfate 1 g PO AC & HS #120 tab 11/14/19 03/07/20 ondansetron HCl 8 mg tablet 8 mg PO Q8H PRN #10 tab 03/06/20 03/06/20 tramadol 50 mg tablet 50 mg PO Q6H PRN #20 tab 03/06/20 03/07/20 ketorolac 10 mg tablet 10 mg PO TID #10 tab 03/07/20 03/07/20 prochlorperazine maleate 10 mg 10 mg PO Q6H PRN #15 tab 03/07/20 03/07/20 tablet Previous Rx's Medication Instructions Recorded diltiazem HCl 300 mg PO DAILY #30 cap 10/10/18 furosemide [Lasix] 20 mg PO DAILY #10 tab 10/10/18 pantoprazole 40 mg PO BID@729,1999 #30 tab 11/14/19 sucralfate 1 g PO AC & HS #120 tab 11/14/19 ondansetron HCl 8 mg tablet 8 mg PO Q8H PRN #10 tab 03/06/20 tramadol 50 mg tablet 50 mg PO Q6H PRN #20 tab 03/06/20 ketorolac 10 mg tablet 10 mg PO TID #10 tab 03/07/20 prochlorperazine maleate 10 mg 10 mg PO Q6H PRN #15 tab 03/07/20 tablet Allergies Allergy/AdvReac Type Severity Reaction Status Date / Time atorvastatin AdvReac Intermediate leg cramps Unverified 03/07/20 16:26 lisinopril AdvReac Intermediate cough Unverified 03/07/20 16:26 General REGAN: 3 Review of Systems Constitutional Constitutional: Reports as per HPI, Denies chills, Denies fever(s), Denies headache(s), Denies lethargy and Denies poor appetite Eyes Eyes: Denies change in vision ENT Ears, Nose, Mouth, and Throat: Denies dizziness and Denies headache(s) Cardiovascular Cardiovascular: Reports as per HPI, Denies dyspnea and Denies dyspnea on exertion Respiratory Respiratory: Reports as per HPI, Denies chest congestion, Denies cough, Denies pain on inspiration, Denies pain with cough, Denies dyspnea, Denies dyspnea on exertion and Denies wheezing Gastrointestinal Gastrointestinal: Reports as per HPI, Denies abdominal pain, Reports diarrhea (reports chronic and unchanged, 1 loose BM today), Denies nausea and Denies vomiting Musculoskeletal Musculoskeletal: Reports as per HPI and Denies back pain Integumentary/Breasts Skin/Breast: Reports as per HPI and Denies rash Neurologic Neurologic: Reports as per HPI, Denies dizziness and Denies headache(s) Allergic/Immunologic Allergic/Immunologic: Denies wheezing PFSH Medical History Ambulatory dysfunction Atrial fibrillation C. difficile colitis Diabetes Duodenal ulcer HTN (hypertension) Hx of hyperlipidemia Obesity, morbid, BMI 40.0-49.9 Obstructive sleep apnea Palliative care patient Pulmonary hypertension mild Rheumatoid arteritis Rheumatoid arthritis Surgical History History of cystoscopy History of hysterectomy Hx of cholecystectomy Social History Smoking/Tobacco Use Status: Former Tobacco Use Smoking risk assessment performed?: Yes Alcohol Intake: current Alcohol Intake frequency: holidays/special occasions only Drug use: Never Substance use type: does not use Do you feel safe at home: Yes Do you feel safe in your relationship?: Yes Additional Social history: Lives with her Valeriy in [facility], handicapped apartment. They moved up here from [place] to be near their daughter. 2 sons in [place] area. 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 Exam Const General: cooperative, comfortable, no acute distress, well developed and ill appearing chronically; not acutely Nutritional Appearance: well nourished and obese Orientation: alert, awake and oriented x3 HENMT Head: normal to inspection, no palpable skull fracture, normocephalic, atraumatic, no Coleman's sign, no hematomas, no occipital foramen tenderness, no palpable skull fracture and no scalp tenderness Ears: hearing grossly normal bilaterally and TM's normal bilaterally (no hemotympanum) Face and sinus: normal facial exam Eyes General: appearance normal, both eyes and all related structures Neck Neck: normal visual inspection, full ROM, no lymphadenopathy and trachea midline Chest Chest: normal inspection of the chest, normal palpation of entire chest wall and no crepitus Resp Effort & Inspection: normal respiratory effort, able to speak in complete sentences and no respiratory distress Auscultation: clear to auscultation bilaterally, no rales, no rhonchi and no wheezes Cardio Rate: tachycardic Rhythm: abnormal rhythm irregularly irregular Heart Sounds: S1 normal and S2 normal GI Inspection: normal to inspection, no edema and non-distended Palpation: soft, no hepatosplenomegaly, not firm, no guarding, not rigid and nontender Auscultation: normal bowel sounds Back/Spine/Pelvis Back: no CVA tenderness Cervical Spine: normal cervical lordosis, cervical ROM normal, No pain with cervical ROM, No cervical spasm, cervical spinal tenderness (fairly diffuse midline tenderness) and No step off deformity Thoracic/Lumbar Spine: thoracic and lumbar spine normal to inspection Pelvis: no pain with anterior-posterior compression and no pain with lateral compression Skin General skin exam: no rashes or lesions noted Trauma: no lacerations or abrasions Neuro General: patient alert, patient awake and patient oriented x3 Cranial Nerves: CN's II-XI intact bilaterally Cognition: normal cognition Speech: speech normal Motor: strength 5/5 throughout Extrem General: normal to inspection, capillary refill normal, no pedal edema, no calf tenderness and normal gait Psych Appearance: grossly normal and well kempt Mental Status: mental status grossly normal Speech and Movement: speech and movement normal
--- NOTE | 2020-03-07 16:15 | RT.EKG_ITS ---
APPROVED REPORT Exam: Resting ECG Patient Location: E HR:147 bpm ECG Measurements Heart Rate 147 AXIS AZ [id number] P [id number] QRSd 93 QRS 13 QT 299 T 87 QTc 468 Conclusion Atrial fibrillation with rapid V-rate...A-rate 425 Repolarization abnormality, prob rate related...ST dep, T neg, tachycardia I have reviewed and interpreted ECG and agree with software generated interpretation.
--- NOTE | 2020-03-07 16:30 | DI.CT_ITS ---
EXAM: CT HEAD CERVICAL SPINE WO COMPARISON: No exams were available for comparison FINDINGS: CT examination of the cervical spine was performed without contrast administration. There are moderate degenerative changes of the cervical spine. There is no evidence of acute cervical spine fracture or dislocation. Intervertebral disc spaces are well maintained. Tracheolaryngeal structures appear intact. No cervical mass or adenopathy. Noncontrast cranial CT was performed. There are moderate generalized changes of cerebral atrophy.. No evidence of acute intracranial hemorrhage, mass effect, or midline shift. No calvarial fracture. The orbital and temporal bone structures appear intact. Visualized mastoid air cells and paranasal sinuses appear clear. IMPRESSION: No evidence of acute cervical spine injury. No evidence of acute intracranial injury. RADIATION DOSE DELIVERED: 1,547.95mGy.cm Total DLP 1,547.95mGy.cm Total DLP DATA REPOSITORY: All CT scans at this facility are submitted to the National Radiology Data Registry (NRDR) Dose Index Registry (DIR) with the [employer] ([employer]). RADIATION OPTIMIZATION: All CT scans at this facility use at least one of these dose optimization te chniques: automated exposure control; mA and/or kV adjustment per patient size (includes targeted exa ms where dose is matched to clinical indication); or iterative reconstruction.
[2020-03-07] MEDS: Metoprolol 5 MG/5 ML VIAL IVP (17:14)
[2020-03-07 17:20] LABS: Abs Immature Grans 0.03 10^3/uL (0.0-0.06); Absolute Basophil Count 0.01 10^3/uL (0.0-0.2); Absolute Eosinophil Count 0.06 10^3/uL (0.0-0.7); Absolute Lymphocyte Count 0.46 10^3/uL (1.2-3.4); Absolute Monocyte Count 0.81 10^3/uL (0.1-0.8); Absolute Neutrophil Count 6.71 10^3/uL (1.2-6.7); Basophils % 0.1; Eosinophils % 0.7; HGB 12.6 g/dL (11.2-15.7); Immature Grans % 0.4; Lymphocytes % 5.7; MCH 29.3 pg (27.0-33.0); MCHC 31.5 % (32.0-36.0); MPV 9.8 fL (8.0-11.0); Neutrophils % 83.1; Nucleated RBC 0 %; Platelet Count 210 10^3/uL (130-400); RDW 15.1 % (11.7-14.6); WBC 8.08 10^3/uL (4.4-10.8)
[2020-03-07 17:22] LABS: Lactate 2.4 mmol/L (0.6-1.4)
[2020-03-07] MEDS: ACETAMINOPHEN 1,000 MG/100 ML BTL 400 MG IVPB (17:22)
[2020-03-07] MEDS: Lactated Ringers 500 ML IV (17:22)
[2020-03-07 17:40] LABS: ALT 44 U/L (14-59); AST 52 U/L (15-37); Albumin 2.6 g/dL (3.4-5.0); Alkaline Phosphatase 136 U/L (46-116); Anion Gap 5.3 mmol/L (3-11); BUN 22 mg/dL (7-18); Bilirubin, Total 0.8 mg/dL (0.2-1.0); CO2 29.7 mmol/L (21.0-32.0); Calcium 8.1 mg/dL (8.5-10.1); Chloride 91 mmol/L (98-107); Estimated GFR 31.51 (mL/min/1.73m2); Glucose 404 mg/dL (74-106); Magnesium 1.3 mg/dL (1.8-2.4); Potassium 3.8 mmol/L (3.5-5.1); Sodium 126 mmol/L (136-145); Total Protein 7.1 g/dL (6.4-8.2)
[2020-03-07 17:51] LABS: Troponin I < 0.05 ng/mL (<0.06)
--- NOTE | 2020-03-07 18:35 | DI.VRAD_ITS ---
PROCEDURE INFORMATION: Exam: CT Head Without Contrast Exam date and time: 03/07/2020 6:10 PM Age: 74 years old Clinical indication: Other: Fall TECHNIQUE: Imaging protocol: Computed tomography of the head without contrast. COMPARISON: No relevant prior studies available. FINDINGS: There is no intracranial hemorrhage. No mass effect or midline shift. The ventricles and sulci are prominent compatible with age-related involutional changes. The calvarium is intact. IMPRESSION: No acute intracranial findings. PROCEDURE INFORMATION: Exam: CT Cervical Spine Without Contrast Exam date and time: 03/07/2020 6:10 PM Age: 74 years old Clinical indication: Other: Fall TECHNIQUE: Imaging protocol: Computed tomography images of the cervical spine without contrast. COMPARISON: No relevant prior studies available. FINDINGS: The alignment of the cervical spine is unremarkable. No acute fracture or subluxation. There is multilevel degenerative disc disease and there are prominent anterior osteophytes. The pre-vertebral soft tissues are within normal limits. The visualized lung apices are clear. IMPRESSION: No acute findings. Dictated and Authenticated by: Marvin Mcbride MD. Ordering:ALMA DELIA Murphy MD
[2020-03-07 19:51] LABS: Lactate 7.5 mmol/L (0.6-1.4)
[2020-03-07 20:18] LABS: Lactate 2.1 mmol/L (0.6-1.4)
== END 2020-03-07 20:11 | disposition home or self-care (01) ==
PROVIDERS: Emergency Provider Physician Assistant; PCP Family Medicine
DX: M54.2 Cervicalgia (principal); V00.818A Other accident with wheelchair (powered), initial encounter; R19.7 Diarrhea, unspecified; E11.65 Type 2 diabetes mellitus with hyperglycemia; Z79.4 Long term (current) use of insulin; E86.0 Dehydration; E87.1 Hypo-osmolality and hyponatremia; E83.42 Hypomagnesemia; I10 Essential (primary) hypertension; I48.91 Unspecified atrial fibrillation; R00.0 Tachycardia, unspecified
CPT/HCPCS: 36415; 80053; 93005; 96361; 96365; 96375; 99285; 70450; 72125; 83605; 83735; 84484; 85025; 93010; J0131

== ENCOUNTER → 2020-03-13 11:22 | Outpatient (BNVA) | payer MEDICARE, MEDICAID, SELFPAY | PROVIDERS: PCP Family Medicine; Referring Provider Family Medicine; Visit Provider Nurse Practitioner Gerontology | DX: Z48.816 Encounter for surgical aftercare following surgery on the genitourinary system (principal); N20.1 Calculus of ureter; I10 Essential (primary) hypertension; E11.9 Type 2 diabetes mellitus without complications | CPT/HCPCS: 99213 ==

== ENCOUNTER 2020-03-16 12:41 | Inpatient (IN) | payer MEDICARE, MEDICAID, SELFPAY ==
[2020-03-16] VITALS (8 sets, daily range): BP systolic 93–142; BP diastolic 53–82; PULSE 97–117; RESP 15–24; TEMP 36.5–38.6; O2SAT 86–98
--- NOTE | 2020-03-16 13:26 | W.ED.GENAD ---
Discharge Plan Disposition Patient Disposition: [facility] INPATIENT Condition: Serious Discharge Details Clinical Impression: UTI (urinary tract infection), Hydronephrosis with renal calculous obstruction Admit Date/Time: 03/16/20 15:38 Admit Provider: Vish Machuca Attending Provider: Vish Machuca Primary Care Provider: Marleen Warren ED Provider: Lisa Amezcua Discharge Data Discharge Date/Time-TO BE ENTERED AT DEPARTURE: 03/16/20 17:25 Medical Decision Making 75-year-old female presents to the ED with chief complaint of fever. Patient reports a fever of 100 this morning. She did take 2 Tylenol prior to arrival. She reports associated with rigors and chills and myalgias. She states that she has noticed cloudy urine with a strange smell. She did have a ureteral stent removed on Friday with Dr. Fernandez. She also endorses diarrhea, no vomiting no abdominal pain. Patient has a past medical history of morbid obesity, hyperlipidemia, hypertension, diabetes, atrial fibrillation, kidney stones which have required multiple ureteral stents. She denies any antibiotics last few months. CBC shows white blood cell count 11.39, lactate is 2.1, sodium 132, chloride 96, 1423: Spoke with Dr. Fernandez urologist regarding patient, he recommends imaging such as an ultrasound or CT to rule out infected kidney stone. At this time I do believe the patient most likely will need to be admitted for UTI, hypomagnesemia, 1532: Hospitalist paged for admission, informed by administrative staff supervisor that O2 sat is high 80s to low 90s [address] patient on 2 L nasal cannula. Blood pressure at this time is 93 systolic over 74 we will add another liter of normal saline. EXAM: CT ABDOMEN PELVIS WO CLINICAL HISTORY: Recent uretral stent removal, UTI, R/O kidney ston. Market segment TECHNIQUE: Imaging Protocol: Axial computed tomography images with coronal and sagittal reformatted images were created and reviewed. COMPARISON: CT CT CHEST/ABD/PEL WO from 11/09/2019 FINDINGS: ABDOMEN: Visualized lung bases are clear. No pleural effusions. There is no ascites. No new obvious focal hepatic findings evident on this noninfused study. Gallbladder is again noted be surgically absent. Biliary tree is not dilated. No new findings in the pancreas. Spleen is not enlarged. There are no significant adrenal masses. Nephrolithiasis again noted. There is hydronephrosis on the right side and hydroureter which is due to a calculus in the intrapelvic ureter which measures 8 x 7 millimeters. the calculus which is seen in the lower right ureter was previously present at the right ureteropelvic junction. Periureteral and perinephric streaking is again noted. No hydronephrosis on the opposite-left side. Urinary bladder is not distended. There is a thin strip of density in the lower right ureter extending from level of the calculus down into the urinary bladder which is consistent with local stent. The abdominal aorta is not enlarged. There is no iyxdokhidsakmuk-tkfr-ashilp adenopathy. There is no evidence of anterior abdominal wall hernia.. No bowel obstruction. No free air. PELVIS: Uterus is surgically absent. There are no abnormal adnexal masses. No free fluid in the pelvis. No evidence of appendicitis. There are few sigmoid diverticula without evidence of acute diverticulitis. Osseous: No significant osseous lesions evident. IMPRESSION: 1. There is no obstructing 8 x 7 millimeter calculus in the lower right ureter with within the pelvis but above the level of the ureter ureterovesical junction. There appears to be a thin stent extending from this level into the urinary bladder. This calculus previously appeared to be at the ureteropelvic junction. There is mild-moderate hydronephrosis in the right collecting system above the level of the calculus. No hydronephrosis on the opposite-left side. 2. Gallbladder surgically absent. No significant dilatation of the biliary tree. 3. Uterus is surgically absent. No abnormal adnexal masses. 1533: Spoke with Dr. Gutiérrez hospitalist who agrees to accept patient for admission. Discussed patient case and details with him. HPI General Mode of arrival: ambulatory. Date/Time Provider Initiated Documentation: 03/16/20 12:41. Limitations to Documentation: no limitations. Information obtained by: patient. HPI Narrative: 75-year-old female presents to the ED with chief complaint of fever. Patient reports a fever of 100 this morning. She did take 2 Tylenol prior to arrival. She reports associated penetrating rigors and chills and myalgias. She states that she has noticed cloudy urine with a strange smell. She did have a ureteral stent removed on Friday with Dr. Fernandez. She also endorses diarrhea, no vomiting no abdominal pain. Patient has a past medical history of morbid obesity, hyperlipidemia, hypertension, diabetes, atrial fibrillation, kidney stones which have required multiple ureteral stents. She denies any antibiotics last few months. Related Data Home Medications Medication Instructions Recorded Confirmed Livalo 1 mg PO DAILY 07/21/13 03/16/20 diazepam 2 mg PO DAILY PRN 07/21/13 03/16/20 duloxetine [Cymbalta] 60 mg PO DAILY 07/21/13 03/16/20 losartan 50 mg PO DAILY 07/21/13 03/16/20 prednisone 5 mg PO DAILY 07/21/13 03/16/20 Victoza 2-Tree 1.8 mg SQ HS ml 12/23/16 03/16/20 lutein 20 mg PO DAILY 12/23/16 03/16/20 mecobalamin (vitamin B12) 1,000 mcg SUBLINGUAL DAILY 12/23/16 03/16/20 melatonin 10 mg PO HS 12/23/16 03/16/20 multivitamin [Daily Value] 1 ea PO DAILY 12/23/16 03/16/20 cholecalciferol (vitamin D3) 5,000 unit PO DAILY 10/31/17 03/16/20 Toujoni SoloStar U-300 Insulin 90 unit SUBCUT QAM 10/10/18 03/16/20 bupropion HCl [Wellbutrin SR] 100 mg PO BID 10/10/18 03/16/20 diltiazem HCl 300 mg PO DAILY #30 cap 10/10/18 03/16/20 furosemide [Lasix] 20 mg PO DAILY #10 tab 10/10/18 03/16/20 Calcium 600 + D(3) 1 cap PO DAILY 11/09/19 03/16/20 Humalog KwikPen Insulin 30 unit SUBCUT AC 11/09/19 03/16/20 cetirizine 10 mg PO DAILY 11/09/19 03/16/20 coenzyme Q10 100 mg PO DAILY 11/09/19 03/16/20 colesevelam 625 mg PO BID 11/09/19 03/16/20 metoprolol succinate 200 mg PO DAILY 11/09/19 03/16/20 vitamin B complex 1 tab PO DAILY 11/09/19 03/16/20 pantoprazole 40 mg PO BID@0730,2000 #30 tab 11/14/19 03/16/20 sucralfate 1 g PO AC & HS #120 tab 11/14/19 03/16/20 ondansetron HCl 8 mg tablet 8 mg PO Q8H PRN #10 tab 03/06/20 03/16/20 tramadol 50 mg tablet 50 mg PO Q6H PRN #20 tab 03/06/20 03/16/20 ketorolac 10 mg tablet 10 mg PO TID #10 tab 03/07/20 03/16/20 prochlorperazine maleate 10 mg 10 mg PO Q6H PRN #15 tab 03/07/20 03/16/20 tablet Previous Rx's Medication Instructions Recorded diltiazem HCl 300 mg PO DAILY #30 cap 10/10/18 furosemide [Lasix] 20 mg PO DAILY #10 tab 10/10/18 pantoprazole 40 mg PO BID@0730,2000 #30 tab 11/14/19 sucralfate 1 g PO AC & HS #120 tab 11/14/19 ondansetron HCl 8 mg tablet 8 mg PO Q8H PRN #10 tab 03/06/20 tramadol 50 mg tablet 50 mg PO Q6H PRN #20 tab 03/06/20 ketorolac 10 mg tablet 10 mg PO TID #10 tab 03/07/20 prochlorperazine maleate 10 mg 10 mg PO Q6H PRN #15 tab 03/07/20 tablet Allergies Allergy/AdvReac Type Severity Reaction Status Date / Time atorvastatin AdvReac Intermediate leg cramps Unverified 03/16/20 13:11 lisinopril AdvReac Intermediate cough Unverified 03/16/20 13:11 General Stated Complaint: Fever REGAN: 2 Review of Systems Narrative: Constitutional: Negative for weight loss, alert and oriented, well groomed, obese body habitus, appears comfortable. Positive fever positive myalgias. HEENT: Denies trauma, headaches, blurry vision, nasal discharge, sore throat, trouble swallowing. Chest: Denies chest pain, palpitations, irregular rhythm, hypertension. Respiratory: Denies Shortness of breath, cough, hemoptysis. GI: Denies abdominal pain, nausea, vomiting, constipation. Positive diarrhea. : Denies dysuria, hematuria, flank pain, rectal bleeding. Positive cloudy and strong smelling urine. Neuro: Denies dizziness, blurry vision, weakness, syncope, headache or facial numbness. Hematologic: Denies easy bruising, intolerance to heat or cold, hair loss. ON LICENSE OF [facility] Medical History Ambulatory dysfunction Atrial fibrillation C. difficile colitis Diabetes Duodenal ulcer HTN (hypertension) Hx of hyperlipidemia Obesity, morbid, BMI 40.0-49.9 Obstructive sleep apnea Palliative care patient Pulmonary hypertension mild Rheumatoid arteritis Rheumatoid arthritis Surgical History History of cystoscopy History of hysterectomy Hx of cholecystectomy Social History Smoking/Tobacco Use Status: Former Tobacco Use Smoking risk assessment performed?: Yes Alcohol Intake: current Alcohol Intake frequency: holidays/special occasions only Drug use: Never Substance use type: does not use Do you feel safe at home: Yes Do you feel safe in your relationship?: Yes Additional Social history: Lives with her Valeriy in [facility]. They moved up here from [place] to be near their daughter. 2 sons in [facility]. 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 Exam Narrative Exam Narrative: Constitutional: Alert and oriented x3. Appears stated age. Morbidly obese body habitus. Head: Normocephalic, no trauma. Eyes: Pupils PERRLA, Red reflex noted, EOM's intact. Eyelids symmetrical without lesions, discharge, or swelling. ENT: Bilateral TM's WNL, External ear normal to inspection, no mastoid TTP, swelling, or erythema, Nasal turbinates WNL, no nasal discharge. Normal dentition, Posterior pharynx WNL, no exudate. Chest: Initially tachycardic on arrival, RRR, Normal S1, S2, distal pulses intact. Resp: Lungs clear to auscultation bilaterally, no wheezes, rales, or rhonchi. Abdomen: Soft, nondistended nontender to palpation. Musculoskeletal: Normal gait, 5/5 strength to all four extremities. Skin: No suspicious rashes or lesions. Capillary refill less than 2 sec. Neurologic: Cranial nerves II-XII intact. Alert and oriented x 3. DTR's intact. Hematologic/Lymphatic: No ecchymosis, no lymphadenopathy. Course Vital Signs Vital signs: Vital Signs Temperature 36.6 C 03/16/20 13:05 Pulse 111 H 03/16/20 13:05 Respiratory Rate 24 03/16/20 13:05 Blood Pressure 142/82 H 03/16/20 13:05 Pulse Oximetry 93 03/16/20 13:05 Temperature 36.6 C 03/16/20 13:05 Temperature Source Skin 03/16/20 13:05 Pulse 111 H 03/16/20 13:05 Respiratory Rate 24 03/16/20 13:05 Respiratory Effort Non-Labored 03/16/20 13:05 Blood Pressure 142/82 H 03/16/20 13:05 Blood Pressure Position Supine 03/16/20 13:05 Pulse Oximetry 93 03/16/20 13:05 Pain Level 3 03/16/20 13:05 Lab/Test Results Lab/Test Results: 03/16/20 13:12 Blood Blood Culture - Pending 03/16/20 13:12 Blood Blood Culture - Pending
[2020-03-16 13:29] LABS: Bilirubin Small (Negative); Blood Large (Negative); Clarity Cloudy (Clear); Glucose Negative (Negative); Ketones 15 mg/dL (Negative); Leukocyte Esterase Large (Negative); Nitrite Positive (Negative); Specific Gravity >= 1.030 (1.005-1.025); Urobilinogen 0.2 EU/dL (Up TO 0.2); pH 5.5 (5-8)
[2020-03-16 13:43] LABS: Abs Immature Grans 0.05 10^3/uL (0.0-0.06); Absolute Basophil Count 0.01 10^3/uL (0.0-0.2); Absolute Eosinophil Count 0.05 10^3/uL (0.0-0.7); Absolute Lymphocyte Count 1.15 10^3/uL (1.2-3.4); Absolute Monocyte Count 0.75 10^3/uL (0.1-0.8); Basophils % 0.1; Eosinophils % 0.4; HCT 36.5 % (36.0-46.0); HGB 11.6 g/dL (11.2-15.7); Immature Grans % 0.4; Lymphocytes % 10.1; MCH 29.4 pg (27.0-33.0); MCHC 31.8 % (32.0-36.0); MCV 92.6 fL (80-95); MPV 9.3 fL (8.0-11.0); Monocytes % 6.6; Neutrophils % 82.4; Nucleated RBC 0 %; Platelet Count 355 10^3/uL (130-400); RBC 3.94 10^6/uL (3.93-5.22); RDW 14.6 % (11.7-14.6); RDW-SD 49.2 fL; WBC 11.39 10^3/uL (4.4-10.8)
[2020-03-16 13:44] LABS: Lactate 2.1 mmol/L (0.6-1.4)
[2020-03-16 13:46] LABS: Bacteria Many HPF (Negative); C & S Indicated? Yes; WBC >50 HPF (0-5)
[2020-03-16 13:47] LABS: Absolute Neutrophil Count 9.39 10^3/uL (1.2-6.7)
[2020-03-16] MEDS: Normal Saline 1,000 ML 1000 ML IV (13:53)
[2020-03-16 14:00] LABS: ALT 16 U/L (14-59); AST 21 U/L (15-37); Albumin 2.3 g/dL (3.4-5.0); Alkaline Phosphatase 191 U/L (46-116); Anion Gap 8.2 mmol/L (3-11); BUN 11 mg/dL (7-18); Bilirubin, Total 0.6 mg/dL (0.2-1.0); CO2 27.8 mmol/L (21.0-32.0); CREATININE 1.44 mg/dL (0.55-1.02); Calcium 8.6 mg/dL (8.5-10.1); Chloride 96 mmol/L (98-107); Estimated GFR 35.49 (mL/min/1.73m2); Glucose 274 mg/dL (74-106); Magnesium 1.5 mg/dL (1.8-2.4); Potassium 3.8 mmol/L (3.5-5.1); Sodium 132 mmol/L (136-145); Total Protein 7.4 g/dL (6.4-8.2)
--- NOTE | 2020-03-16 14:00 | DI.CT_ITS ---
EXAM: CT ABDOMEN PELVIS WO CLINICAL HISTORY: Recent uretral stent removal, UTI, R/O kidney ston. Market segment TECHNIQUE: Imaging Protocol: Axial computed tomography images with coronal and sagittal reformatted images were created and reviewed. COMPARISON: CT CT CHEST/ABD/PEL WO from 11/09/2019 FINDINGS: ABDOMEN: Visualized lung bases are clear. No pleural effusions. There is no ascites. No new obvious focal hepatic findings evident on this noninfused study. Gallbladder is again noted b e surgically absent. Biliary tree is not dilated. No new findings in the pancreas. Spleen is not e nlarged. There are no significant adrenal masses. Nephrolithiasis again noted. There is hydronephr osis on the right side and hydroureter which is due to a calculus in the intrapelvic ureter which raul sures 8 x 7 millimeters. the calculus which is seen in the lower right ureter was previously presen t at the right ureteropelvic junction. Periureteral and perinephric streaking is again noted. No hy dronephrosis on the opposite-left side. Urinary bladder is not distended. There is a thin strip of density in the lower right ureter extending from level of the calculus down into the urinary bladder which is consistent with local stent. The abdominal aorta is not enlarged. There is no nslfcayfhiheyey-rdux-jmbwdh adenopathy. There is no evidence of anterior abdominal wall hernia.. No bowel obstruction. No free air. PELVIS: Uterus is surgically absent. There are no abnormal adnexal masses. No free fluid in the pelvis. No evidence of appendicitis. There are few sigmoid diverticula without evidence of acute diverticuliti s. Osseous: No significant osseous lesions evident. IMPRESSION: 1. There is no obstructing 8 x 7 millimeter calculus in the lower right ureter with within the pelvis but above the level of the ureter ureterovesical junction. There appears to be a thin stent extendi ng from this level into the urinary bladder. This calculus previously appeared to be at the ureterop elvic junction. There is mild-moderate hydronephrosis in the right collecting system above the level of the calculus. No hydronephrosis on the opposite-left side. 2. Gallbladder surgically absent. No significant dilatation of the biliary tree. 3. Uterus is surgically absent. No abnormal adnexal masses. RADIATION DOSE DELIVERED: 1,804.31mGy.cm Total DLP DATA REPOSITORY: All CT scans at this facility are submitted to the National Radiology Data Registry (NRDR) Dose Index Registry (DIR) with the [employer] (A[employer]). RADIATION OPTIMIZATION: All CT scans at this facility use at least one of these dose optimization te chniques: automated exposure control; mA and/or kV adjustment per patient size (includes targeted exa ms where dose is matched to clinical indication); or iterative reconstruction.
[2020-03-16] MEDS: cefTRIAXone 1 GM/50 ML BAG IVPB (14:10)
[2020-03-16] MEDS: MAGNESIUM SULFATE 1 GM/100 ML BAG IVPB (14:51)
--- NOTE | 2020-03-16 15:28 | NUR.NOTE ---
started on [place] O2 2L
--- NOTE | 2020-03-16 15:47 | HPE_ITS ---
Date of service: 03/16/20 Time of Service: 15:47 Assessment and Plan Assessment and plan (1) UTI (urinary tract infection): Status: Acute Assessment and plan: s/p urinary stent removal ceftriaxone 1 gm IV daily day 1 urine and blood cultures pending (2) Steroid dependent: Status: Chronic Assessment and plan: On prednisone 5 mg daily for RA. will give stress dose steroids and closely monitor (3) Poorly controlled type 2 diabetes mellitus: Status: Acute Assessment and plan: hemoglobin A1C February 21, 2020 9.3 continue home regimen check blood sugar ac/hs and give sliding scale as needed. carb controlled diet. (4) Hydronephrosis with renal calculous obstruction: Status: Acute Assessment and plan: s/p stent placement and removal. add flomax consult Dr Fernandez for continuity of care. CT 1. There is no obstructing 8 x 7 millimeter calculus in the lower right ureter with within the pelvis but above the level of the ureter ureterovesical junction. There appears to be a thin stent extending from this level into the urinary bladder. This calculus previously appeared to be at the ureteropelvic junction. There is mild-moderate hydronephrosis in the right collecting system above the level of the calculus. No hydronephrosis on the opposite-left side. 2. Gallbladder surgically absent. No significant dilatation of the biliary tree. 3. Uterus is surgically absent. No abnormal adnexal masses. (5) Hypomagnesemia: Status: Acute Assessment and plan: replete and follow received 1 gm IVPB in the ED (6) Obstructive sleep apnea: Status: Suspected (7) Atrial fibrillation: Status: Chronic Assessment and plan: rate controlled, continue home medications: lopressor and diltiazem. no anticoagulated d/t GI bleeding from duodenal ulcer. (8) C. difficile colitis: Status: Acute Assessment and plan: lactobacillus and prophylactic vanco. (9) Duodenal ulcer: Status: Acute Assessment and plan: with recent history of GI bleeding requiring blood transfusion. has been stable with no further evidence of bleeding. continue carafate and protonix. was to remain off anticoagulation until f/u with surgery and re-scope. (10) DVT prophylaxis: Status: Acute Assessment and plan: heparin in setting of chronic kidney disease (11) Discharge planning issues: Status: Acute Assessment and plan: case management consulted for discharge planning. anticipate home when medically stable. wheelchair bound, able to pivot and bear weight for transfers independently discussed with Dr Machuca who is in agreement History of Present Illness History of Present Illness Chief Complaint: fever Narrative: This is a 75-year-old female who presented to the ED with chief complaint of fever of 100 this morning. She did take 2 Tylenol prior to arrival. She reports associated rigors and chills and myalgias. She states that she has noticed cloudy urine with a strange smell. She did have a ureteral stent removed on Friday with Dr. Fernandez. Her work up in the ED shows urinary tract infection and she is started on ceftriaxone 1 gm IVPB while urine and blood cultures pending. She is afebrile but took 2 tylenol prior to arrival. she is also noted to be hypotensive with an elevated lactic acid. she received a bolus of IV fluid and will be given stress dose steroids. Review of Systems All systems reviewed & are unremarkable except as noted in HPI and below Constitutional Constitutional: Reports body ache(s), Reports chills and Reports fever(s) ENT Ears, Nose, Mouth, and Throat: Denies vertigo and Denies dizziness Cardiovascular Cardiovascular: Denies chest pain and Denies dyspnea Respiratory Respiratory: Denies cough and Denies dyspnea Gastrointestinal Gastrointestinal: Reports nausea Genitourinary Genitourinary: Reports other (foul urinary odor) Integumentary/Breasts Skin/Breast: Denies rash Neurologic Neurologic: Denies vertigo and Denies dizziness [facility] Medical History Ambulatory dysfunction Atrial fibrillation C. difficile colitis Diabetes Duodenal ulcer HTN (hypertension) Hx of hyperlipidemia Obesity, morbid, BMI 40.0-49.9 Obstructive sleep apnea Palliative care patient Pulmonary hypertension mild Rheumatoid arteritis Rheumatoid arthritis Surgical History History of cystoscopy History of hysterectomy Hx of cholecystectomy Social History Smoking/Tobacco Use Status: Former Tobacco Use Smoking risk assessment performed?: Yes Alcohol Intake: current Alcohol Intake frequency: holidays/special occasions only Drug use: Never Substance use type: does not use Do you feel safe at home: Yes Do you feel safe in your relationship?: Yes Additional Social history: Lives with her Valeriy in [facility], handicapped apartment. They moved up here from [place] to be near their daughter. 2 sons in [place] area. 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 Meds Home Medications and Allergies Home Medications Medication Instructions Recorded Confirmed Type Livalo 1 mg PO DAILY 07/21/13 03/16/20 History diazepam 2 mg PO DAILY PRN 07/21/13 03/16/20 History duloxetine [Cymbalta] 60 mg PO DAILY 07/21/13 03/16/20 History losartan 50 mg PO DAILY 07/21/13 03/16/20 History prednisone 5 mg PO DAILY 07/21/13 03/16/20 History Victoza 2-Tree 1.8 mg SQ HS ml 12/23/16 03/16/20 History lutein 20 mg PO DAILY 12/23/16 03/16/20 History mecobalamin (vitamin B12) 1,000 mcg SUBLINGUAL DAILY 12/23/16 03/16/20 History melatonin 10 mg PO HS 12/23/16 03/16/20 History multivitamin [Daily Value] 1 ea PO DAILY 12/23/16 03/16/20 History cholecalciferol (vitamin D3) 5,000 unit PO DAILY 10/31/17 03/16/20 History Toujoni SoloStar U-300 Insulin 90 unit SUBCUT QAM 10/10/18 03/16/20 History bupropion HCl [Wellbutrin SR] 100 mg PO BID 10/10/18 03/16/20 History diltiazem HCl 300 mg PO DAILY #30 cap 10/10/18 03/16/20 Rx furosemide [Lasix] 20 mg PO DAILY #10 tab 10/10/18 03/16/20 Rx Calcium 600 + D(3) 1 cap PO DAILY 11/09/19 03/16/20 History Humalog KwikPen Insulin 30 unit SUBCUT AC 11/09/19 03/16/20 History cetirizine 10 mg PO DAILY 11/09/19 03/16/20 History coenzyme Q10 100 mg PO DAILY 11/09/19 03/16/20 History colesevelam 625 mg PO BID 11/09/19 03/16/20 History metoprolol succinate 200 mg PO DAILY 11/09/19 03/16/20 History vitamin B complex 1 tab PO DAILY 11/09/19 03/16/20 History pantoprazole 40 mg PO BID@0730,2000 #30 tab 11/14/19 03/16/20 Rx sucralfate 1 g PO AC & HS #120 tab 11/14/19 03/16/20 Rx ondansetron HCl 8 mg tablet 8 mg PO Q8H PRN #10 tab 03/06/20 03/16/20 Rx tramadol 50 mg tablet 50 mg PO Q6H PRN #20 tab 03/06/20 03/16/20 Rx ketorolac 10 mg tablet 10 mg PO TID #10 tab 03/07/20 03/16/20 Rx prochlorperazine maleate 10 mg 10 mg PO Q6H PRN #15 tab 03/07/20 03/16/20 Rx tablet Allergies Allergy/AdvReac Type Severity Reaction Status Date / Time atorvastatin AdvReac Intermediate leg cramps Unverified 03/16/20 13:11 lisinopril AdvReac Intermediate cough Unverified 03/16/20 13:11 Exam Const General: cooperative, comfortable and anxious Nutritional Appearance: obese Orientation: alert, awake and oriented x3 HENMT Head: normal to inspection, normocephalic and atraumatic Mouth: oral mucosae normal Resp Effort & Inspection: normal respiratory effort Cardio Rate: regular rate Rhythm: abnormal rhythm GI Inspection: normal to inspection and large pannus Palpation: soft Neuro General: patient alert, patient awake, patient oriented x3, moves all extremities and no focal motor deficits Extrem General: normal to inspection and edema (generalized) Results Labs Result diagrams: 03/17/20 06:13 03/17/20 06:13 Labs: Laboratory Results - last 24 hr 03/16/20 03/16/20 03/16/20 13:20 13:30 13:30 WBC RBC Hgb Hct MCV MCH MCHC RDW Plt Count MPV Immature Gran % Neutrophils % Lymphocytes % Monocytes % Eosinophils % Basophils % Nucleated RBC % Absolute Neutrophils Absolute Lymphocytes Absolute Monocytes Absolute Eosinophils Absolute Basophils VBG Lactate 2.1 H* Sodium 132 L Potassium 3.8 Chloride 96 L Carbon Dioxide 27.8 Anion Gap 8.2 BUN 11 Creatinine 1.44 H Estimated GFR/1.73 m2 35.49 Glucose 274 H Calcium 8.6 Magnesium 1.5 L Total Bilirubin 0.6 AST 21 ALT 16 Alkaline Phosphatase 191 H Total Protein 7.4 Albumin 2.3 L Urine Color Yellow Urine Clarity Cloudy Urine pH 5.5 Ur Specific Wilmer >= 1.030 H Urine Protein 100 H Urine Ketones 15 H Urine Blood Large H Urine Nitrite Positive H Urine Bilirubin Small H Urine Urobilinogen 0.2 Ur Leukocyte Esterase Large H Urine RBC Not Applicable Urine WBC >50 H Ur Epithelial Cells Not Applicable Urine Crystals Not Applicable Urine Bacteria Many Urine Mucus Not Applicable Ur Culture Indicated? Yes Urine Glucose Negative 03/16/20 13:30 WBC 11.39 H RBC 3.94 Hgb 11.6 Hct 36.5 MCV 92.6 MCH 29.4 MCHC 31.8 L RDW 14.6 Plt Count 355 D MPV 9.3 Immature Gran % 0.4 Neutrophils % 82.4 Lymphocytes % 10.1 Monocytes % 6.6 Eosinophils % 0.4 Basophils % 0.1 Nucleated RBC % 0 Absolute Neutrophils 9.39 H Absolute Lymphocytes 1.15 L Absolute Monocytes 0.75 Absolute Eosinophils 0.05 Absolute Basophils 0.01 VBG Lactate Sodium Potassium Chloride Carbon Dioxide Anion Gap BUN Creatinine Estimated GFR/1.73 m2 Glucose Calcium Magnesium Total Bilirubin AST ALT Alkaline Phosphatase Total Protein Albumin Urine Color Urine Clarity Urine pH Ur Specific Wilmer Urine Protein Urine Ketones Urine Blood Urine Nitrite Urine Bilirubin Urine Urobilinogen Ur Leukocyte Esterase Urine RBC Urine WBC Ur Epithelial Cells Urine Crystals Urine Bacteria Urine Mucus Ur Culture Indicated? Urine Glucose Last Vital Signs Temp 36.5 C 03/16/20 14:52 Pulse 97 H 03/16/20 14:52 Resp 15 03/16/20 15:46 BP 101/53 L 03/16/20 15:46 Pulse Ox 98 03/16/20 15:46 COVID-19 Screening Have you, or household traveled for leisure in last 14 days?: No Had IN PERSON contact w/suspected or confirmed C-19 person: No
--- NOTE | 2020-03-16 17:22 | UCONE_ITS ---
Assessment and Plan Assessment and plan (1) UTI (urinary tract infection): Status: Acute (2) Hydronephrosis with renal calculous obstruction: Status: Acute Assessment and plan: We recommend placing a ureteral stent to drain any infected urine from the right kidney. When I made this recommendation to the alfrde vásquez, she tells me that she would not consent to surgery at this time and that she wants to try the antibiotics by themselves. I have asked that she continue only with clear liquids so that we might be able to place a stent urgently or emergently if her condition deteriorates or if she changes her mind. History of Present Illness History of Present Illness Chief Complaint: Right ureteral stone Narrative: This is a 75-year-old woman who has a history of bilateral kidney stones and urosepsis. She had previously been admitted with E. coli urosepsis. She was found to have an obstructing UPJ stone. She had a stent placed and her condition improved with culture specific antibiotics. She has had ureteroscopy with holmium laser lithotripsy of her stones. She still had large stone burden in the right lower pole that was not addressed. She had her ureteral stent removed earlier this week. She is now complaining of fevers and chills. Her urinalysis is suggestive of a urinary tract infection. A CT scan done through the ER shows a distal right ureteral stone fragment with hydronephrosis. There is also a comment regarding a thin stent extending from the stone fragment down to the bladder. The lower pole stone burden is still present on the right side. Review of Systems Constitutional Constitutional: Denies chills and Denies fever(s) Cardiovascular Cardiovascular: Denies chest pain Respiratory Respiratory: Denies cough Gastrointestinal Gastrointestinal: Denies nausea and Denies vomiting [facility] Medical History Ambulatory dysfunction Atrial fibrillation C. difficile colitis Diabetes Duodenal ulcer HTN (hypertension) Hx of hyperlipidemia Obesity, morbid, BMI 40.0-49.9 Obstructive sleep apnea Palliative care patient Pulmonary hypertension mild Rheumatoid arteritis Rheumatoid arthritis Surgical History History of cystoscopy History of hysterectomy Hx of cholecystectomy Social History Smoking/Tobacco Use Status: Former Tobacco Use Smoking risk assessment performed?: Yes Alcohol Intake: current Alcohol Intake frequency: holidays/special occasions only Drug use: Never Substance use type: does not use Do you feel safe at home: Yes Do you feel safe in your relationship?: Yes Additional Social history: Lives with her Valeriy in [facility], handicapped apartment. They moved up here from [place] to be near their daughter. 2 sons in [place] area. 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 Exam Narrative Exam Narrative: She looks uncomfortable. Her vital signs are documented elsewhere Her abdomen is obese but soft. There is no guarding or rebound tenderness. There is no peritoneal signs. She is awake and alert. I reviewed the CT scan on the PACS system. There is a right distal ureteral stone at approximately the level of the pelvic brim with hydronephrosis and hydroureter above this stone. The patient's stent had been removed, so the findings below the stone do not actually represent a stent but represent dusted stone migrating down the ureter. Results Last Vital Signs Temp 36.6 C 03/16/20 16:34 Pulse 97 H 03/16/20 14:52 Resp 15 03/16/20 16:34 BP 105/72 03/16/20 16:34 Pulse Ox 96 03/16/20 16:34 Labs Result diagrams: 03/17/20 06:13 03/17/20 06:13 Labs: Laboratory Results - last 24 hr 03/16/20 03/16/20 03/16/20 13:20 13:30 13:30 WBC RBC Hgb Hct MCV MCH MCHC RDW Plt Count MPV Immature Gran % Neutrophils % Lymphocytes % Monocytes % Eosinophils % Basophils % Nucleated RBC % Absolute Neutrophils Absolute Lymphocytes Absolute Monocytes Absolute Eosinophils Absolute Basophils VBG Lactate 2.1 H* Sodium 132 L Potassium 3.8 Chloride 96 L Carbon Dioxide 27.8 Anion Gap 8.2 BUN 11 Creatinine 1.44 H Estimated GFR/1.73 m2 35.49 Glucose 274 H Calcium 8.6 Magnesium 1.5 L Total Bilirubin 0.6 AST 21 ALT 16 Alkaline Phosphatase 191 H Total Protein 7.4 Albumin 2.3 L Urine Color Yellow Urine Clarity Cloudy Urine pH 5.5 Ur Specific [place] >= 1.030 H Urine Protein 100 H Urine Ketones 15 H Urine Blood Large H Urine Nitrite Positive H Urine Bilirubin Small H Urine Urobilinogen 0.2 Ur Leukocyte Esterase Large H Urine RBC Not Applicable Urine WBC >50 H Ur Epithelial Cells Not Applicable Urine Crystals Not Applicable Urine Bacteria Many Urine Mucus Not Applicable Ur Culture Indicated? Yes Urine Glucose Negative 03/16/20 13:30 WBC 11.39 H RBC 3.94 Hgb 11.6 Hct 36.5 MCV 92.6 MCH 29.4 MCHC 31.8 L RDW 14.6 Plt Count 355 D MPV 9.3 Immature Gran % 0.4 Neutrophils % 82.4 Lymphocytes % 10.1 Monocytes % 6.6 Eosinophils % 0.4 Basophils % 0.1 Nucleated RBC % 0 Absolute Neutrophils 9.39 H Absolute Lymphocytes 1.15 L Absolute Monocytes 0.75 Absolute Eosinophils 0.05 Absolute Basophils 0.01 VBG Lactate Sodium Potassium Chloride Carbon Dioxide Anion Gap BUN Creatinine Estimated GFR/1.73 m2 Glucose Calcium Magnesium Total Bilirubin AST ALT Alkaline Phosphatase Total Protein Albumin Urine Color Urine Clarity Urine pH Ur Specific [place] Urine Protein Urine Ketones Urine Blood Urine Nitrite Urine Bilirubin Urine Urobilinogen Ur Leukocyte Esterase Urine RBC Urine WBC Ur Epithelial Cells Urine Crystals Urine Bacteria Urine Mucus Ur Culture Indicated? Urine Glucose
[2020-03-16] MEDS: Normal Saline 1,000 ML 100 ML IV (17:56)
[2020-03-16] MEDS: Vancomycin 125 MG CAP PO (18:11)
[2020-03-16] MEDS: diazePAM 2 MG TAB PO (18:11)
[2020-03-16] MEDS: Tamsulosin 0.4 MG CAPCR PO (18:11)
[2020-03-16] MEDS: Pantoprazole 40 MG TABCR PO (19:47)
[2020-03-16] MEDS: Acetaminophen 325 MG TAB 650 MG PO (20:46)
[2020-03-16] MEDS: Albuterol HFA 8 GM 60 PUFF INH IH (20:47)
[2020-03-16] MEDS: Hydrocortisone SOD SUC. 100 MG VIAL 50 MG IVP (21:35)
[2020-03-16] MEDS: Normal Saline Flush 10 ML SYR IVP (21:35)
[2020-03-16] MEDS: Sucralfate 1 GM TAB PO (21:35)
[2020-03-16] MEDS: Melatonin 3 MG TAB 9 MG PO (21:35)
[2020-03-16] MEDS: Heparin 5,000 UNITS/ML VIAL 5000 UNITS SC (21:36)
[2020-03-17] VITALS (8 sets, daily range): BP systolic 104–121; BP diastolic 65–76; PULSE 93–109; RESP 16–19; TEMP 36.1–36.7; O2SAT 94–98
[2020-03-17] MEDS: Vancomycin 125 MG CAP PO ×5 (00:03→23:40)
[2020-03-17] MEDS: Normal Saline 1,000 ML 100 ML IV (03:28)
[2020-03-17] MEDS: Hydrocortisone SOD SUC. 100 MG VIAL 50 MG IVP ×2 (06:14→14:46)
[2020-03-17] MEDS: Heparin 5,000 UNITS/ML VIAL 5000 UNITS SC ×3 (06:14→22:24)
[2020-03-17 06:45] LABS: Abs Immature Grans 0.06 10^3/uL (0.0-0.06); Absolute Basophil Count 0.02 10^3/uL (0.0-0.2); Absolute Lymphocyte Count 1.01 10^3/uL (1.2-3.4); Absolute Monocyte Count 0.47 10^3/uL (0.1-0.8); Absolute Neutrophil Count 9.83 10^3/uL (1.2-6.7); Basophils % 0.2; HCT 33.6 % (36.0-46.0); HGB 10.6 g/dL (11.2-15.7); Immature Grans % 0.5; Lymphocytes % 8.9; MCHC 31.5 % (32.0-36.0); MCV 91.8 fL (80-95); MPV 9.3 fL (8.0-11.0); Monocytes % 4.1; Neutrophils % 86.3; Nucleated RBC 0 %; Platelet Count 327 10^3/uL (130-400); RBC 3.66 10^6/uL (3.93-5.22); RDW 14.6 % (11.7-14.6); RDW-SD 49.5 fL; WBC 11.39 10^3/uL (4.4-10.8)
[2020-03-17 06:51] LABS: Magnesium 1.9 mg/dL (1.8-2.4)
[2020-03-17 06:55] LABS: Anion Gap 5.2 mmol/L (3-11); BUN 11 mg/dL (7-18); CO2 27.8 mmol/L (21.0-32.0); CREATININE 1.17 mg/dL (0.55-1.02); Calcium 8.4 mg/dL (8.5-10.1); Chloride 98 mmol/L (98-107); Estimated GFR 45.09 (mL/min/1.73m2); Glucose 250 mg/dL (74-106); Potassium 4.2 mmol/L (3.5-5.1); Sodium 131 mmol/L (136-145)
--- NOTE | 2020-03-17 07:44 | W.PM.PROGNOT ---
Date of Service Date of service: 03/17/20 Time of Service: 07:45 Assessment and Plan Assessment and plan (1) UTI (urinary tract infection): Status: Acute (2) Hydronephrosis with renal calculous obstruction: Status: Acute Assessment and plan: Our recommendation remains a drainage procedure for the right kidney, but the patient is not interested in this type of procedure as long as she continues to improve with antibiotics alone. I have resumed the patient's diet as she will not be going to the OR today Subjective Subjective Interval history since last seen: The patient tells me that she feels great this morning. She is still unwilling to have a ureteral stent placed. She would like to continue with antibiotics alone. She denies any right flank pain. Exam Narrative Exam Narrative: She does not appear septic or toxic Her vital signs are documented elsewhere in the chart Her abdomen is obese but soft with no peritoneal signs Objective Last Vital Signs Temp 36.3 C L 03/17/20 07:17 Pulse 93 H 03/17/20 07:17 Resp 16 03/17/20 07:17 BP 115/74 03/17/20 07:17 Pulse Ox 96 03/17/20 07:17 Laboratory Results - last 24 hr 03/16/20 03/16/20 03/16/20 13:20 13:30 13:30 WBC RBC Hgb Hct MCV MCH MCHC RDW Plt Count MPV Immature Gran % Neutrophils % Lymphocytes % Monocytes % Eosinophils % Basophils % Nucleated RBC % Absolute Neutrophils Absolute Lymphocytes Absolute Monocytes Absolute Eosinophils Absolute Basophils VBG Lactate 2.1 H* Sodium 132 L Potassium 3.8 Chloride 96 L Carbon Dioxide 27.8 Anion Gap 8.2 BUN 11 Creatinine 1.44 H Estimated GFR/1.73 m2 35.49 Glucose 274 H Calcium 8.6 Magnesium 1.5 L Total Bilirubin 0.6 AST 21 ALT 16 Alkaline Phosphatase 191 H Total Protein 7.4 Albumin 2.3 L Urine Color Yellow Urine Clarity Cloudy Urine pH 5.5 Ur Specific [place] >= 1.030 H Urine Protein 100 H Urine Ketones 15 H Urine Blood Large H Urine Nitrite Positive H Urine Bilirubin Small H Urine Urobilinogen 0.2 Ur Leukocyte Esterase Large H Urine RBC Not Applicable Urine WBC >50 H Ur Epithelial Cells Not Applicable Urine Crystals Not Applicable Urine Bacteria Many Urine Mucus Not Applicable Ur Culture Indicated? Yes Urine Glucose Negative 03/16/20 03/17/20 03/17/20 13:30 06:13 06:13 WBC 11.39 H RBC 3.94 Hgb 11.6 Hct 36.5 MCV 92.6 MCH 29.4 MCHC 31.8 L RDW 14.6 Plt Count 355 D MPV 9.3 Immature Gran % 0.4 Neutrophils % 82.4 Lymphocytes % 10.1 Monocytes % 6.6 Eosinophils % 0.4 Basophils % 0.1 Nucleated RBC % 0 Absolute Neutrophils 9.39 H Absolute Lymphocytes 1.15 L Absolute Monocytes 0.75 Absolute Eosinophils 0.05 Absolute Basophils 0.01 VBG Lactate Sodium 131 L Potassium 4.2 Chloride 98 Carbon Dioxide 27.8 Anion Gap 5.2 BUN 11 Creatinine 1.17 H Estimated GFR/1.73 m2 45.09 Glucose 250 H Calcium 8.4 L Magnesium 1.9 Total Bilirubin AST ALT Alkaline Phosphatase Total Protein Albumin Urine Color Urine Clarity Urine pH Ur Specific [place] Urine Protein Urine Ketones Urine Blood Urine Nitrite Urine Bilirubin Urine Urobilinogen Ur Leukocyte Esterase Urine RBC Urine WBC Ur Epithelial Cells Urine Crystals Urine Bacteria Urine Mucus Ur Culture Indicated? Urine Glucose 03/17/20 06:13 WBC 11.39 H RBC 3.66 L Hgb 10.6 L Hct 33.6 L MCV 91.8 MCH 29.0 MCHC 31.5 L RDW 14.6 Plt Count 327 MPV 9.3 Immature Gran % 0.5 Neutrophils % 86.3 Lymphocytes % 8.9 Monocytes % 4.1 Eosinophils % 0.0 Basophils % 0.2 Nucleated RBC % 0 Absolute Neutrophils 9.83 H Absolute Lymphocytes 1.01 L Absolute Monocytes 0.47 Absolute Eosinophils 0.00 Absolute Basophils 0.02 VBG Lactate Sodium Potassium Chloride Carbon Dioxide Anion Gap BUN Creatinine Estimated GFR/1.73 m2 Glucose Calcium Magnesium Total Bilirubin AST ALT Alkaline Phosphatase Total Protein Albumin Urine Color Urine Clarity Urine pH Ur Specific [place] Urine Protein Urine Ketones Urine Blood Urine Nitrite Urine Bilirubin Urine Urobilinogen Ur Leukocyte Esterase Urine RBC Urine WBC Ur Epithelial Cells Urine Crystals Urine Bacteria Urine Mucus Ur Culture Indicated? Urine Glucose
[2020-03-17] MEDS: Vitamins B Comp w/C TAB 1 TAB PO (07:55)
[2020-03-17] MEDS: Metoprolol CR 100 MG TABCR 200 MG PO (07:55)
[2020-03-17] MEDS: Cholecalciferol (Vitamin D3) 1,000 UNIT TAB 5000 UNITS PO (07:55)
[2020-03-17] MEDS: dilTIAZem CD 300 MG CAPCR PO (07:55)
[2020-03-17] MEDS: Pantoprazole 40 MG TABCR PO ×2 (07:55→20:57)
[2020-03-17] MEDS: predniSONE 5 MG TAB PO (07:55)
[2020-03-17] MEDS: Furosemide 20 MG TAB PO (07:55)
[2020-03-17] MEDS: DULoxetine 30 MG CAP 60 MG PO (07:56)
[2020-03-17] MEDS: Cetirizine 10 MG TAB PO (07:56)
[2020-03-17] MEDS: Losartan 50 MG TAB PO (07:56)
[2020-03-17] MEDS: Calcium 600mg/Vit D 200U TAB 1 TAB PO (07:56)
[2020-03-17] MEDS: Multivitamin TAB 1 TAB PO (07:56)
[2020-03-17] MEDS: Sucralfate 1 GM TAB PO ×4 (07:56→22:24)
[2020-03-17] MEDS: Tamsulosin 0.4 MG CAPCR PO (07:56)
[2020-03-17] MEDS: buPROPion-CR 100 MG TABCR PO (07:56)
[2020-03-17] MEDS: Insulin Aspart 300 UNITS/3 ML PEN SC ×3 (08:16→17:16)
[2020-03-17] MEDS: Insulin Glargine 300 UNITS/3 ML PEN 90 UNITS SC (08:16)
[2020-03-17 09:35] LABS: COVID-19 RT-PCR UVMMC Result Negative (Negative)
--- NOTE | 2020-03-17 10:12 | PDOC.CMIN ---
- If Service Date Differs Date of service: 03/17/20 Time of Service: 10:12 Care Management Initial Assess REASON FOR HOSPITALIZATION:: UTI PAST MEDICAL HISTORY/PAST SURGICAL HISTORY:: Medical History. Ambulatory dysfunction. Atrial fibrillation. C. difficile colitis. Diabetes. Duodenal ulcer. HTN (hypertension). Hx of hyperlipidemia. Obesity, morbid, BMI 40.0-49.9. Obstructive sleep apnea. Palliative care patient. Pulmonary hypertension. mild. Rheumatoid arteritis. Rheumatoid arthritis. Surgical History. History of cystoscopy. History of hysterectomy. Hx of cholecystectomy PREVIOUS FUNCTIONAL STATUS/SOCIAL/FAMILY SUPPORTS:: Elizabeth lives in [facility] with her , Valeriy. They have a daughter who lives locally, and two sons who live in [place]. Elizabeth has a dog and two cats, who are her 'service' animals, who she speaks of fondly. 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 She has lived in [place], [place], [place], and now [place], and states that she prefers [place]. Her and daughter support her with her ADL's and errands. She has [facility] highest needs, Oralia Galan is her community health nurse supervisor. CURRENT FUNCTIONAL STATUS:: Elizabeth was sitting up in her chair when CM met with her. She reported that she was feeling better today. She was very pleasant and engaged in conversation. She stated that she met with Dr. Fernandez this morning, who stated that she will likely be ready for discharge tomorrow. Per report, her blood cultures did come back positive, so she may need to remain at [facility] until her abx course is identified. CM will continue to follow. ADVANCE DIRECTIVES:: None on file, CM will review forms with pt. Has patient been provided with info about the portal/API?: Yes Did the patient sign up for the portal?: No CODE STATUS:: Full Code INSURANCE COVERAGE / FINANCIAL ISSUES:: [facility]/ [facility] CURRENT HOME/COMMUNITY SERVICES/EQUIPMENT:: [facility] highest needs, [facility] Oralia Galan is her case finisher, wheelchair due to chronic pain, can take a few steps on her on. Lift chair at home. She does have a volunteer that helps with errands. Her daughter and spouse provide her assistance at home. HH services from previous admission, as well as palliative care f/u in the community. PRIMARY CARE PHYSICIAN:: Dr. Warren POTENTIAL DISCHARGE NEEDS:: new orders for HH RN, PT?, follow up appointments PATIENT/FAMILY EDUCATION NEEDS:: Review discharge instructions regarding activity levels and medications, discussion of self care needs and goals of care. ANTICIPATED BARRIERS TO DISCHARGE:: None identified at this time. TRANSPORTATION:: Via private vehicle by family vs rct w/c van PLAN:: Elizabeth's blood cultures were positive, therefore we are awaiting sensitivities to determine abx course. Anticipate she will return home once medically cleared with oral abx vs IV abx home infusion vs IV abx SWB. CM will discuss options for abx course once it is identifed. She will follow up with her PCP and discharge plan of care. CM will continue to follow.
--- NOTE | 2020-03-17 10:46 | PGE_ITS ---
Date of Service Date of service: 03/17/20 Time of Service: 10:46 Assessment and Plan Assessment and plan (1) UTI (urinary tract infection): Status: Acute Assessment and plan: s/p urinary stent removal ceftriaxone 1 gm IV daily day 2 urine and blood cultures pending afebrile now, max temp overnight 38.6 blood culture tubes positive for gram negative rods, increase ceftriaxone to 2 gm and repeat blood cultures in am (2) Steroid dependent: Status: Chronic Assessment and plan: On prednisone 5 mg daily for RA. received stress dose steroids continue closely monitor (3) Poorly controlled type 2 diabetes mellitus: Status: Acute Assessment and plan: hemoglobin A1C February 21, 2020 9.3 continue home regimen check blood sugar ac/hs and give sliding scale as needed. carb controlled diet. (4) Hydronephrosis with renal calculous obstruction: Status: Acute Assessment and plan: s/p stent placement and removal. add flomax consult Dr Fernandez for continuity of care. CT 1. There is no obstructing 8 x 7 millimeter calculus in the lower right ureter with within the pelvis but above the level of the ureter ureterovesical junction. There appears to be a thin stent extending from this level into the urinary bladder. This calculus previously appeared to be at the ureteropelvic junction. There is mild-moderate hydronephrosis in the right collecting system above the level of the calculus. No hydronephrosis on the opposite-left side. 2. Gallbladder surgically absent. No significant dilatation of the biliary tree. 3. Uterus is surgically absent. No abnormal adnexal masses. (5) Hypomagnesemia: Status: Acute Assessment and plan: replete and follow received 1 gm IVPB in the ED (6) Obstructive sleep apnea: Status: Suspected (7) Atrial fibrillation: Status: Chronic Assessment and plan: rate controlled, continue home medications: lopressor and diltiazem. no anticoagulated d/t GI bleeding from duodenal ulcer. (8) C. difficile colitis: Status: Acute Assessment and plan: lactobacillus and prophylactic vanco. (9) Duodenal ulcer: Status: Acute Assessment and plan: with recent history of GI bleeding requiring blood transfusion. has been stable with no further evidence of bleeding. continue carafate and protonix. was to remain off anticoagulation until f/u with surgery and re-scope. (10) DVT prophylaxis: Status: Acute Assessment and plan: heparin in setting of chronic kidney disease (11) Discharge planning issues: Status: Acute Assessment and plan: case management consulted for discharge planning. anticipate home when medically stable. wheelchair bound, able to pivot and bear weight for transfers independently discussed with Dr Machuca who is in agreement Subjective Subjective Patient reports: no new complaints, tolerating liquids well and tolerating a regular diet Exam Const General: cooperative, comfortable and anxious Nutritional Appearance: obese Orientation: alert, awake and oriented x3 HENMT Head: normal to inspection, normocephalic and atraumatic Mouth: oral mucosae normal Resp Effort & Inspection: normal respiratory effort Cardio Rate: regular rate Rhythm: abnormal rhythm GI Inspection: normal to inspection and large pannus Palpation: soft Neuro General: patient alert, patient awake, patient oriented x3, moves all extremities and no focal motor deficits Extrem General: normal to inspection and edema (generalized) Objective Last Vital Signs Temp 36.3 C L 03/17/20 07:17 Pulse 93 H 03/17/20 07:17 Resp 16 03/17/20 07:17 BP 115/74 03/17/20 07:17 Pulse Ox 96 03/17/20 07:17 Laboratory Results - last 24 hr 03/16/20 03/16/20 03/16/20 13:20 13:30 13:30 WBC RBC Hgb Hct MCV MCH MCHC RDW Plt Count MPV Immature Gran % Neutrophils % Lymphocytes % Monocytes % Eosinophils % Basophils % Nucleated RBC % Absolute Neutrophils Absolute Lymphocytes Absolute Monocytes Absolute Eosinophils Absolute Basophils VBG Lactate 2.1 H* Sodium 132 L Potassium 3.8 Chloride 96 L Carbon Dioxide 27.8 Anion Gap 8.2 BUN 11 Creatinine 1.44 H Estimated GFR/1.73 m2 35.49 Glucose 274 H Calcium 8.6 Magnesium 1.5 L Total Bilirubin 0.6 AST 21 ALT 16 Alkaline Phosphatase 191 H Total Protein 7.4 Albumin 2.3 L Urine Color Yellow Urine Clarity Cloudy Urine pH 5.5 Ur Specific [place] >= 1.030 H Urine Protein 100 H Urine Ketones 15 H Urine Blood Large H Urine Nitrite Positive H Urine Bilirubin Small H Urine Urobilinogen 0.2 Ur Leukocyte Esterase Large H Urine RBC Not Applicable Urine WBC >50 H Ur Epithelial Cells Not Applicable Urine Crystals Not Applicable Urine Bacteria Many Urine Mucus Not Applicable Ur Culture Indicated? Yes Urine Glucose Negative COVID-19 PCR Nasopharyn COVID-19 PCR Ref Test Perform Site 03/16/20 03/16/20 03/17/20 13:30 17:17 06:13 WBC 11.39 H RBC 3.94 Hgb 11.6 Hct 36.5 MCV 92.6 MCH 29.4 MCHC 31.8 L RDW 14.6 Plt Count 355 D MPV 9.3 Immature Gran % 0.4 Neutrophils % 82.4 Lymphocytes % 10.1 Monocytes % 6.6 Eosinophils % 0.4 Basophils % 0.1 Nucleated RBC % 0 Absolute Neutrophils 9.39 H Absolute Lymphocytes 1.15 L Absolute Monocytes 0.75 Absolute Eosinophils 0.05 Absolute Basophils 0.01 VBG Lactate Sodium Potassium Chloride Carbon Dioxide Anion Gap BUN Creatinine Estimated GFR/1.73 m2 Glucose Calcium Magnesium 1.9 Total Bilirubin AST ALT Alkaline Phosphatase Total Protein Albumin Urine Color Urine Clarity Urine pH Ur Specific [place] Urine Protein Urine Ketones Urine Blood Urine Nitrite Urine Bilirubin Urine Urobilinogen Ur Leukocyte Esterase Urine RBC Urine WBC Ur Epithelial Cells Urine Crystals Urine Bacteria Urine Mucus Ur Culture Indicated? Urine Glucose COVID-19 PCR Negative Nasopharyn COVID-19 PCR Not Applicable Ref Test Perform Site [facility] 03/17/20 03/17/20 06:13 06:13 WBC 11.39 H RBC 3.66 L Hgb 10.6 L Hct 33.6 L MCV 91.8 MCH 29.0 MCHC 31.5 L RDW 14.6 Plt Count 327 MPV 9.3 Immature Gran % 0.5 Neutrophils % 86.3 Lymphocytes % 8.9 Monocytes % 4.1 Eosinophils % 0.0 Basophils % 0.2 Nucleated RBC % 0 Absolute Neutrophils 9.83 H Absolute Lymphocytes 1.01 L Absolute Monocytes 0.47 Absolute Eosinophils 0.00 Absolute Basophils 0.02 VBG Lactate Sodium 131 L Potassium 4.2 Chloride 98 Carbon Dioxide 27.8 Anion Gap 5.2 BUN 11 Creatinine 1.17 H Estimated GFR/1.73 m2 45.09 Glucose 250 H Calcium 8.4 L Magnesium Total Bilirubin AST ALT Alkaline Phosphatase Total Protein Albumin Urine Color Urine Clarity Urine pH Ur Specific [place] Urine Protein Urine Ketones Urine Blood Urine Nitrite Urine Bilirubin Urine Urobilinogen Ur Leukocyte Esterase Urine RBC Urine WBC Ur Epithelial Cells Urine Crystals Urine Bacteria Urine Mucus Ur Culture Indicated? Urine Glucose COVID-19 PCR Nasopharyn COVID-19 PCR Ref Test Perform Site
--- NOTE | 2020-03-17 11:05 | PHA.REVIEW ---
Pharmacy Admission Review - Admission Clinical Review (Last Reviewed 03/03/20 @ 08:44 by Stacy Pate RN) Poorly controlled type 2 diabetes mellitus (Acute) Discharge planning issues (Acute) UTI (urinary tract infection) (Acute) Hydronephrosis with renal calculous obstruction (Acute) Hypomagnesemia (Acute) DVT prophylaxis (Acute) C. difficile colitis (Acute) Duodenal ulcer (Acute) atorvastatin Adverse Reaction (Intermediate, Unverified 03/16/20 13:11) leg cramps lisinopril Adverse Reaction (Intermediate, Unverified 03/16/20 13:11) cough Height 5 ft 6.93 in Weight 147.5 kg - Renal Dosing Renal Dosing: BUN 11 mg/dL (7-18) 03/17/20 06:13 Creatinine 1.17 mg/dL (0.55-1.02) H 03/17/20 06:13 Medications needing adjustments: Reviewed (Crcl ~62.8 mL/min using adjusted body weight, current meds okay) - Anticoagulation Anticoagulation: Hgb 10.6 g/dL (11.2-15.7) L 03/17/20 06:13 Hct 33.6 % (36.0-46.0) L 03/17/20 06:13 Plt Count 327 10^3/uL (130-400) 03/17/20 06:13 Creatinine 1.17 mg/dL (0.55-1.02) H 03/17/20 06:13 DVT Prohphylaxis: Reviewed Medications: Heparin Therapeutic Anticoagulation: N/A - Opiate Usage Evaluate Pain Scale/Pains Meds: Reviewed Scheduled Bowel Reg ordered if on Opiates?: No (has prn meds) - Relevant Labs Sodium 131 mmol/L (136-145) L 03/17/20 06:13 Potassium 4.2 mmol/L (3.5-5.1) 03/17/20 06:13 Chloride 98 mmol/L (98-107) 03/17/20 06:13 Magnesium 1.9 mg/dL (1.8-2.4) 03/17/20 06:13 Electrolytes, C-Reactive P, ESR: Reviewed - DM Control DM Control: Glucose 250 mg/dL (74-106) H 03/17/20 06:13 Finger Stick Blood Glucose 210 Finger Stick Blood Glucose 210 Finger Stick Blood Glucose 210 Insulin Dosing: Reviewed (Scheduled glargine and sliding scale aspart ordered. Pts own liraglutide ordered, med has not been brought in.) - Heart Failure/[place] EF%, AASHISH's, B-Blockers, Diuretics: N/A - BP Control BP Control: Blood Pressure 115/74 Blood Pressure 118/74 If elevated: N/A - Qtc Review If Elevated: N/A - IV to PO Switch IV Medications: Reviewed - Home Meds Home Med List reviewed: Reviewed (Multivitamin and cholecalciferol may increase the absorption of aluminum from sucralfate; recommended to avoid chronic and/or excessuve use of these meds w/sucralfate. Separate admin of multivitamin and cholecalciferol from colesevelam. Multiple [employer] depressants.) Relevent Home Meds Not ordered & why?: coenzyme Q-10, humalog (has sliding scale aspart ordered), ketorolac (PRN), prochlorperazine (PRN) - Current meds Current Medication Order Review: Reviewed - Comments Comments/Follow Ups: Watch VS, BG, SCr, sodium, for micro results and for med changes. Antibiotic Activity - Pharmacy Antibiotic Review Pharmacy Antibiotic Activity: Abx regimen adjustment (Ceftriaxone dose increased to 2 grams Q24H, prophylactic PO vanco ordered. Urine culture growing gram negative rods, blood cultures still pending.)
[2020-03-17] MEDS: cefTRIAXone 2 GM/50 ML BAG IVPB (11:22)
[2020-03-17] MEDS: Normal Saline Flush 10 ML SYR IVP (14:47)
--- NOTE | 2020-03-17 16:15 | CHAPLAIN ---
Elizabeth was resting in bed when I visited. When I introduced myself as the cloth covered helmet puller, she showed me her cross and said that because she is Khmer and Sinhala, she has an Khmer cross and gold horn on her necklace. Elizabeth was raised [employer]. She believes she may go home tomorrow and is happy about that. Elizabeth explained that she is usually in a wheelchair at home, but that's not a problem, she said. She talked about moving to [place] from [place] to be closer to her daughter. She said her has sons in [place], but sons are less apt to help you out.
[2020-03-17] MEDS: Melatonin 3 MG TAB 9 MG PO (22:24)
[2020-03-18] MEDS: diazePAM 2 MG TAB PO (02:33)
[2020-03-18 06:33] LABS: Abs Immature Grans 0.05 10^3/uL (0.0-0.06); Absolute Basophil Count 0.02 10^3/uL (0.0-0.2); Absolute Eosinophil Count 0.08 10^3/uL (0.0-0.7); Absolute Lymphocyte Count 1.81 10^3/uL (1.2-3.4); Absolute Monocyte Count 0.87 10^3/uL (0.1-0.8); Absolute Neutrophil Count 7.77 10^3/uL (1.2-6.7); Basophils % 0.2; Eosinophils % 0.8; HCT 33.9 % (36.0-46.0); HGB 10.9 g/dL (11.2-15.7); Immature Grans % 0.5; Lymphocytes % 17.1; MCH 29.7 pg (27.0-33.0); MCHC 32.2 % (32.0-36.0); MCV 92.4 fL (80-95); MPV 9.5 fL (8.0-11.0); Monocytes % 8.2; Neutrophils % 73.2; Nucleated RBC 0 %; Platelet Count 376 10^3/uL (130-400); RBC 3.67 10^6/uL (3.93-5.22); RDW 14.6 % (11.7-14.6); RDW-SD 49.3 fL
[2020-03-18] MEDS: Sucralfate 1 GM TAB PO (06:43)
[2020-03-18] MEDS: Vancomycin 125 MG CAP PO (06:44)
[2020-03-18] MEDS: Pantoprazole 40 MG TABCR PO (06:44)
[2020-03-18] MEDS: Heparin 5,000 UNITS/ML VIAL 5000 UNITS SC (06:44)
[2020-03-18 06:48] LABS: Anion Gap 6.6 mmol/L (3-11); BUN 16 mg/dL (7-18); CO2 27.4 mmol/L (21.0-32.0); CREATININE 1.22 mg/dL (0.55-1.02); Calcium 8.6 mg/dL (8.5-10.1); Chloride 100 mmol/L (98-107); Estimated GFR 42.97 (mL/min/1.73m2); Glucose 248 mg/dL (74-106); Potassium 3.6 mmol/L (3.5-5.1); Sodium 134 mmol/L (136-145)
[2020-03-18 08:07] VITALS: BP 125/77; PULSE 99; RESP 19; TEMP 36.9; O2SAT 95
[2020-03-18] MEDS: predniSONE 5 MG TAB PO (08:15)
[2020-03-18] MEDS: DULoxetine 30 MG CAP 60 MG PO (08:15)
[2020-03-18] MEDS: buPROPion-CR 100 MG TABCR PO (08:15)
[2020-03-18] MEDS: Cholecalciferol (Vitamin D3) 1,000 UNIT TAB 5000 UNITS PO (08:15)
[2020-03-18] MEDS: Vitamins B Comp w/C TAB 1 TAB PO (08:15)
[2020-03-18] MEDS: dilTIAZem CD 300 MG CAPCR PO (08:15)
[2020-03-18] MEDS: Insulin Aspart 300 UNITS/3 ML PEN SC (08:16)
[2020-03-18] MEDS: Losartan 50 MG TAB PO (08:16)
[2020-03-18] MEDS: Metoprolol CR 100 MG TABCR 200 MG PO (08:16)
[2020-03-18] MEDS: Tamsulosin 0.4 MG CAPCR PO (08:16)
[2020-03-18] MEDS: Multivitamin TAB 1 TAB PO (08:16)
[2020-03-18] MEDS: Calcium 600mg/Vit D 200U TAB 1 TAB PO (08:16)
[2020-03-18] MEDS: Cetirizine 10 MG TAB PO (08:16)
[2020-03-18] MEDS: Furosemide 20 MG TAB PO (08:16)
[2020-03-18] MEDS: Insulin Glargine 300 UNITS/3 ML PEN 90 UNITS SC (08:17)
--- NOTE | 2020-03-18 08:30 | PDOC.CMPRO ---
- If Service Date Differs Date of service: 03/18/20 Time of Service: 08:30 Care Management Progress Note S/O: Elizabeth is laying in bed watching television when comes to meet with her. Elizabeth is pleasant and talkative but is adamant she is going home today. She reports she had a procedure a few weeks ago where a ureteral stent implant was placed. The stent was removed on March 13, 2020. A few days later she presented to the emergency department with fever and chills and was found to have a urinary tract infection. Elizabeth is convinced the stent is what caused the UTI. She is now feeling much better and is insistent on returning home today on oral antibiotics. A: Elizabeth is a 75 year old female admitted to [facility] on 03/16/20 for a UTI. P: Elizabeth's blood cultures were positive. Plan was to await sensitivities to determine abx course and for Elizabeth to return home once medically cleared with oral abx vs IV abx home infusion vs IV abx SWB. Elizabeth, however, has opted to return home today and is leaving the hospital against medical advice. She will follow up with her PCP and with palliative care on an outpatient basis.
[2020-03-18] MEDS: cefTRIAXone 2 GM/50 ML BAG IVPB (09:52)
[2020-03-18] MEDS: Normal Saline Flush 10 ML SYR IVP (09:53)
--- NOTE | 2020-03-18 11:11 | W.PM.DS.N ---
DS: Diagnosis Discharge Diagnosis (1) UTI (urinary tract infection): Status: Acute (2) Steroid dependent: Status: Chronic (3) Poorly controlled type 2 diabetes mellitus: Status: Acute (4) Hydronephrosis with renal calculous obstruction: Status: Acute (5) Hypomagnesemia: Status: Acute (6) Obstructive sleep apnea: Status: Suspected (7) Atrial fibrillation: Status: Chronic (8) C. difficile colitis: Status: Acute (9) Duodenal ulcer: Status: Acute (10) DVT prophylaxis: Status: Inactive (11) Discharge planning issues: Status: Inactive Discharge Plan Disposition Patient Disposition: AGAINST MEDICAL ADVICE Condition: Stable Discharge Details Reason For Visit: UTI Admit Date/Time: 03/16/20 15:38 Admit Provider: Vish Machuca Attending Provider: Vish Machuca Primary Care Provider: Marleen Warren [facility] Course Hospital Course: Elizabeth is a very pleasant 75-year-old female with a past medical history significant for poorly controlled insulin-dependent type 2 diabetes, nephrolithiasis, chronic atrial fibrillation, formally on Pradaxa for anticoagulation, currently held due to bleeding duodenal ulcers for which she received blood transfusion in 10/2019, rheumatoid arthritis, on chronic prednisone, BUCK. She presented to the emergency department on 03/16/2020 with reports of fever, rigors and chills as well as cloudy urine with an odor. She was recently noted to have a right ureteral stones and underwent cystoscopy on 03/06/[address] Fernandez, at the time of the procedure a ureteral stent was placed. Her stent was removed 4 days prior to her presentation. Her work-up in the emergency department was notable for urinary tract infection. She also had a CT in the emergency department which showed a 7 mm calculus in the right ureter above the level of the UVJ and mild to moderate hydronephrosis on the right. She was noted to have hypotension and an elevated lactic acid. She was given IV fluid bolus and stress dose steroids. She was admitted to the hospitalist service with a urology consult. Her urine and blood cultures were both positive for gram-negative rods. She was given IV ceftriaxone 2 g daily while hospitalized. Her white blood cell count improved, she remained afebrile and she felt back to baseline. Urology recommended replacing the ureteral stent, however, she declined. She had repeat blood cultures done today, 03/18/2020. At this point, her sensitivities are not back yet. Elizabeth decided to leave AGAINST MEDICAL ADVICE. We had an extensive conversation about the importance of waiting until we see negative blood cultures and sensitivities, however, she refused to stay at the hospital any longer. Her blood glucose was in the 200-300s consistently during her hospitalization. The plan was to transition her to twice daily dosing of her long-acting insulin, starting this evening, however, she was unwilling to stay in the hospital to make this change and states that she will follow-up with her primary care provider on her diabetes. She reports that she has not been consistently checking her blood sugar at home. She states she will monitor her blood glucose and give the results to her primary care provider. We also discussed that she is still off of anticoagulation. She was on Pradaxa prior to having bleeding ulcers and requiring blood transfusion in 10/2019 during her hospitalization. She will follow-up with her primary care provider on whether or not to resume anticoagulation. She will likely require another urology procedure for the retained 8 mm stone, anticoagulation would likely be held in the setting of surgery. We discussed CODE STATUS, she is listed as a full code. Elizabeth states that she does not believe she wants to remain a full code, she thinks she would prefer to be a DNR/DNI. Her does not agree with her being a DNR/DNI. I offered to complete a COLST form with her today, however, she would like to think about it a little longer and follow-up with palliative care to continue to discuss advance care planning and goals of care, including CODE STATUS. She is advised to call her primary care provider office on 03/20/2020 for follow-up appointment. She should follow-up with palliative care as an outpatient, the palliative office will contact her to set up a home visit or telehealth visit. A prescription for antibiotics, Levofloxacin 750 mg/day x13 days, sent to her pharmacy. No dose adjustment recommended by [facility] pharmacy. Flomax Rx sent to pharmacy as well. Will defer to her PCP to follow up on Blood Cultures. She was advised to return to the ED if she develops fever, chills, increased pain, or any other symptoms. Home Meds and New Rx's Prescriptions: New tamsulosin 0.4 mg Capsule 0.4 mg PO DAILY Qty: 14 RF: 0 levofloxacin 750 mg tablet 750 mg PO DAILY Qty: 13 RF: 0 Continued tramadol 50 mg tablet 50 mg PO Q6H PRN (Reason: pain) Qty: 20 RF: 0 ondansetron HCl 8 mg tablet 8 mg PO Q8H PRN (Reason: nausea and vomiting) Qty: 10 RF: 0 prochlorperazine maleate [Compazine] 10 mg tablet 10 mg PO Q6H PRN (Reason: nausea and vomiting) Qty: 15 RF: 0 multivitamin [Daily Value] 1 EACH tablet 1 ea PO DAILY RF: 0 lutein 20 MG capsule 20 mg PO DAILY RF: 0 Victoza 2-Tree 0.6 MG/0.1 ML pen injector 1.8 mg SQ HS RF: 0 melatonin 10 MG capsule 10 mg PO HS RF: 0 mecobalamin (vitamin B12) 1,000 MCG tablet,disintegrating 1,000 mcg Sublingual DAILY RF: 0 cholecalciferol (vitamin D3) 1,000 UNIT capsule 5,000 unit PO DAILY RF: 0 losartan 50 MG tablet 50 mg PO DAILY RF: 0 prednisone 5 MG tablet 5 mg PO DAILY RF: 0 diazepam 2 MG tablet 2 mg PO DAILY PRNRF: 0 duloxetine [Cymbalta] 60 MG capsule,delayed release(DR/EC) 60 mg PO DAILY RF: 0 Livalo 2 MG tablet 1 mg PO DAILY RF: 0 Toujeo SoloStar U-300 Insulin 300 unit/mL (1.5 mL) Insulin Pen 90 unit SUBCUT QAM RF: 0 bupropion HCl [Wellbutrin SR] 100 mg Tablet Sustained-Release 12 Hr 100 mg PO BID RF: 0 diltiazem HCl 300 mg Capsule,Extended Release 24hr 300 mg PO DAILY Qty: 30 RF: 0 furosemide [Lasix] 20 mg tablet 20 mg PO DAILY Qty: 10 RF: 0 Calcium 600 + D(3) 600 mg calcium- 200 unit Capsule 1 cap PO DAILY RF: 0 coenzyme Q10 100 mg Capsule 100 mg PO DAILY RF: 0 Humalog KwikPen Insulin 200 unit/mL (3 mL) insulin pen 30 unit SUBCUT AC RF: 0 metoprolol succinate 50 mg tablet extended release 24 hr 200 mg PO DAILY RF: 0 colesevelam 625 mg tablet 625 mg PO BID RF: 0 vitamin B complex Tablet 1 tab PO DAILY RF: 0 cetirizine 10 mg Tablet 10 mg PO DAILY RF: 0 sucralfate 1 gram Tablet 1 g PO AC & HS Qty: 120 RF: 0 pantoprazole 40 mg Tablet,Delayed Release (Dr/Ec) 40 mg PO BID@0730,1999 Qty: 30 RF: 0 Discontinued ketorolac 10 mg tablet 10 mg PO TID Qty: 10 RF: 0 Discharge Instructions Instructions: Bacteremia (DC) Additional Instructions: Follow up with your PCP on Friday. Palliative care will contact you to set up appointment. Take antibiotics everyday, start tomorrow. Return to the ED if you develop fever, chills, shakes, or any other symptoms. Drink plenty of fluids. Monitor your blood sugars and discuss with your PCP. Apply compression stockings or alicia wraps to your legs for edema, elevate legs when sitting. Activity:: Activity as Tolerated Equipment/Supplies:: No Equipment Needed Diet:: Carb Counting Discharge Orders Discharge Orders: Discharge Order (Routine); Ordered 03/18/20 Ordered By: Jody Salas Discharge Data Discharge Date/Time-TO BE ENTERED AT DEPARTURE: 03/18/20 11:36 DS: Summary Status at Discharge Functional status at discharge: wheelchair bound Overall status at discharge: patient is progressing back to baseline Mental Status: mental status grossly normal Speech and Movement: speech and movement normal Mood: congruent mood Affect: normal affect Exam Narrative Exam Narrative: General: alert and oriented, overweight female, appears stated age. Lying in bed, smiling and talkative, does not appear to be in any acute distress. Very pleasant. HEENT: Normocephalic, atraumatic, pupils equal and round. Neck: Supple. Cardiovascular: heart sounds regular, nontachycardic. Respiratory: Respirations appear even and unlabored, lung sounds clear on limited anterior and lateral exam. GI: Abdomen is large and round. + Bowel sounds throughout, abdomen is soft, nontender on palpation. Extremities: 3+ Pitting edema to bilateral lower extremities, right greater than left. Psych Mental Status: mental status grossly normal Speech and Movement: speech and movement normal Mood: congruent mood Affect: normal affect DS: Data Vitals/I&O Vitals and I&O: Vital Signs Temperature 36.9 C 03/18/20 08:07 Temperature Source Tympanic 03/18/20 08:07 Pulse 99 H 03/18/20 08:07 Pulse Rhythm Regular 03/18/20 09:36 Respiratory Rate 19 03/18/20 08:07 Respiratory Effort Non-Labored 03/18/20 09:36 Respiratory Depth Normal 03/18/20 09:36 Respiratory Pattern Normal 03/18/20 09:36 Blood Pressure 125/77 03/18/20 08:07 Blood Pressure Position Supine 03/16/20 13:05 Pulse Oximetry 95 03/18/20 08:07 Oxygen Delivery Method Room Air 03/18/20 08:07 Oxygen Flow Rate 0 03/18/20 08:07 Pain Level 1 03/18/20 08:07 Intake & Output 03/17/20 03/17/20 03/18/20 11:59 23:59 11:59 Intake Total 2498.333 / 3018.333 520 / 3018.333 480 / 480 Output Total 1300 / 2550 1250 / 2550 300 / 300 Balance 1198.333 / 468.333 -730 / 468.333 180 / 180 Intake: IV 1818.333 / 1858.333 40 / 1858.333 Oral 680 / 1160 480 / 1160 480 / 480 Output: Urine 1300 / 2550 1250 / 2550 300 / 300 Other: Urine Color Yellow Yellow Yellow Urine Appearance Cloudy Clear Cloudy Urine Odor Normal Comment urine mixed with stool Stool Size Moderate Moderate Large Stool Characteristics Soft Soft Soft Liquid Formed Brown Voiding Methods Bedside Commode Bedside Commode Bedside Commode Data Completed and Pending Completed studies during hospitalization [Text1]: 03/06/20 CT chest/abd/pelvis WO IMPRESSION: 1. There is no obstructing 8 x 7 millimeter calculus in the lower right ureter with within the pelvis but above the level of the ureter ureterovesical junction. There appears to be a thin stent extending from this level into the urinary bladder. This calculus previously appeared to be at the ureteropelvic junction. There is mild-moderate hydronephrosis in the right collecting system above the level of the calculus. No hydronephrosis on the opposite-left side. 2. Gallbladder surgically absent. No significant dilatation of the biliary tree. 3. Uterus is surgically absent. No abnormal adnexal masses. Labs on day of discharge: Labs from last 24 hours 03/18/20 03/18/20 06:12 06:12 WBC 10.60 RBC 3.67 L Hgb 10.9 L Hct 33.9 L MCV 92.4 MCH 29.7 MCHC 32.2 RDW 14.6 Plt Count 376 MPV 9.5 Immature Gran % 0.5 Neutrophils % 73.2 Lymphocytes % 17.1 Monocytes % 8.2 Eosinophils % 0.8 Basophils % 0.2 Nucleated RBC % 0 Absolute Neutrophils 7.77 H Absolute Lymphocytes 1.81 Absolute Monocytes 0.87 H Absolute Eosinophils 0.08 Absolute Basophils 0.02 Sodium 134 L Potassium 3.6 Chloride 100 Carbon Dioxide 27.4 Anion Gap 6.6 BUN 16 Creatinine 1.22 H Estimated GFR/1.73 m2 42.97 Glucose 248 H Calcium 8.6 03/18/20 06:12 Blood Blood Culture - Pending 03/18/20 06:24 Blood Blood Culture - Pending Preliminary micro results at discharge 03/18/20 06:12 Blood Culture - Pending Blood 03/18/20 06:24 Blood Culture - Pending Blood 03/16/20 14:00 Blood Culture - Preliminary Blood NO GROWTH 24 HOURS 03/16/20 13:20 Urine Culture - Preliminary Urine - Reflex from Ua Gram Negative Manuel Gram Negative Manuel#2 Gram Negative Manuel#3 03/16/20 13:30 Blood Culture - Preliminary Blood PFSH Medical History Ambulatory dysfunction Atrial fibrillation C. difficile colitis Diabetes Duodenal ulcer HTN (hypertension) Hx of hyperlipidemia Obesity, morbid, BMI 40.0-49.9 Obstructive sleep apnea Palliative care patient Pulmonary hypertension mild Rheumatoid arteritis Rheumatoid arthritis Surgical History History of cystoscopy History of hysterectomy Hx of cholecystectomy Social History Smoking/Tobacco Use Status: Former Tobacco Use Smoking risk assessment performed?: Yes Alcohol Intake: current Alcohol Intake frequency: holidays/special occasions only Drug use: Never Substance use type: does not use Do you feel safe at home: Yes Do you feel safe in your relationship?: Yes Additional Social history: Lives [place] her Valeriy [facility]. They moved up here from [place] to be near their daughter. 2 sons in [place]. 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
--- NOTE | 2020-03-18 15:16 | PDOC.HHF2F ---
Home Health Certification Home Health Certification: 1. Encounter Date and Reason I certify that SARAH LUNSFORD was seen by Jody Salas on 03/18/20 and that I had a [id number] encounter with this patient that meets the physician face to face encounter requirements. 2. Clinical Findings Supporting Skilled Need and Homebound Status I certify that home health services are medically necessary, include either intermittent nursing home and/or physical/speech therapy, and that this patient is homebound in that absences from the home require considerable and taxing effort and are infrequent or of short duration, or are attributable to the need to receive medical care. [X] (a) Attached documentation from encounter provides clinical findings supporting skilled need and homebound status (including what assistance patient requires to leave the home). The encounter with the patient was in whole, or in part, for the following medical condition, which is the primary reason for home health care: UTI, bacteremia, renal calculous, poorly controlled insulin dependent DM2 Care Home: Needed to monitor multiple medical conditions, educate and assist with medication management. Physical Therapy: Speech Therapy: Homebound: Unable to leave home without assistance, wheelchair bound. 3. Certification and Authentication I certify that I composed the above information based on my clinical judgement relating to this patient's medical condition and, if applicable, clinical findings communicated to me by the NPP or inpatient physician who performed the Home Health Referral. All further orders will be obtained through [facility] (Community Based Physician - PCP)
== END 2020-03-18 11:36 | disposition left against medical advice (07) | DRG 690 ==
LOC: ER 17:08 → MS 17:32
PROVIDERS: Emergency Medicine; Nurse Practitioner Acute Care; Admitting Provider Family Medicine; Emergency Provider Registered Nurse Emergency; PCP Family Medicine; Visit Provider Family Medicine
DX: N13.6 Pyonephrosis (principal); Z68.43 Body mass index [BMI] 50.0-59.9, adult; A04.72 Enterocolitis due to Clostridium difficile, not specified as recurrent; E87.2 Acidosis; E66.01 Morbid (severe) obesity due to excess calories; E83.42 Hypomagnesemia; M06.9 Rheumatoid arthritis, unspecified; Z79.52 Long term (current) use of systemic steroids; E11.65 Type 2 diabetes mellitus with hyperglycemia; G47.33 Obstructive sleep apnea (adult) (pediatric); K26.9 Duodenal ulcer, unspecified as acute or chronic, without hemorrhage or perforation; I48.91 Unspecified atrial fibrillation; R26.2 Difficulty in walking, not elsewhere classified; I10 Essential (primary) hypertension; E78.5 Hyperlipidemia, unspecified; I27.20 Pulmonary hypertension, unspecified; I95.9 Hypotension, unspecified
CPT/HCPCS: 36415; 80048; 80053; 87040; 87077; 96361; 96365; 96367; 99222; 99223; 99232; 99233; 99239; 99253; 99285; U0003; 74176; 81003; 81015; 83605; 83735; 85025; 87086; 87186; J0696; J1644; J1720; J3475; J7512

== ENCOUNTER 2020-04-17 10:54 | Outpatient (REF) | payer MEDICARE, MEDICAID, SELFPAY ==
[2020-04-17 12:10] LABS: Bilirubin Negative (Negative); Blood Moderate (Negative); Clarity Cloudy (Clear); Glucose Negative (Negative); Ketones Negative (Negative); Leukocyte Esterase Large (Negative); Nitrite Negative (Negative); Specific Gravity 1.025 (1.005-1.025); Urobilinogen 0.2 EU/dL (Up TO 0.2)
[2020-04-17 12:23] LABS: C & S Indicated? Yes; WBC >50 HPF (0-5)
== END 2020-04-17 11:14 ==
LOC: NCHCN 10:54
PROVIDERS: PCP Family Medicine; Visit Provider Family Medicine
DX: N39.0 Urinary tract infection, site not specified (principal)
CPT/HCPCS: 87077; 81003; 81015; 87086; 87186

== ENCOUNTER 2020-05-01 20:37 | Outpatient (REF) | payer MEDICARE, MEDICAID, SELFPAY ==
[2020-05-01 20:19] LABS: Hemoglobin A1C 10.3 % (<5.7)
== END 2020-05-01 20:57 ==
LOC: NCHCN 20:37
PROVIDERS: PCP Family Medicine; Visit Provider Family Medicine
DX: E11.65 Type 2 diabetes mellitus with hyperglycemia (principal); I10 Essential (primary) hypertension; D64.9 Anemia, unspecified
CPT/HCPCS: 80048; 82728; 83036

== ENCOUNTER 2020-06-23 15:04 | Outpatient (REF) | payer MEDICARE, MEDICAID, SELFPAY ==
[2020-06-23 18:55] LABS: HCT 37.4 % (36.0-46.0); HGB 11.8 g/dL (11.2-15.7); MCHC 31.6 % (32.0-36.0); MCV 95.2 fL (80-95); Platelet Count 401 10^3/uL (130-400); RBC 3.93 10^6/uL (3.93-5.22); RDW 15.3 % (11.7-14.6); WBC 8.38 10^3/uL (4.4-10.8)
[2020-06-23 19:11] LABS: Anion Gap 9.7 mmol/L (3-11); BUN 20 mg/dL (7-18); CO2 28.3 mmol/L (21.0-32.0); CREATININE 1.2 mg/dL (0.55-1.02); Calcium 8.7 mg/dL (8.5-10.1); Chloride 101 mmol/L (98-107); Ferritin 43 ng/mL (8-252); Glucose 303 mg/dL (74-106); Magnesium 1.7 mg/dL (1.8-2.4); Potassium 4.2 mmol/L (3.5-5.1); Sodium 139 mmol/L (136-145)
== END 2020-06-23 15:05 | disposition home or self-care (01) ==
LOC: NCHCN 15:04
PROVIDERS: PCP Family Medicine; Visit Provider Family Medicine
DX: D64.9 Anemia, unspecified (principal); I10 Essential (primary) hypertension; R60.0 Localized edema
CPT/HCPCS: 80048; 85027; 82728; 83735

== ENCOUNTER 2020-10-08 16:51 | Emergency (ER) | payer MEDICARE, MEDICAID, SELFPAY ==
[2020-10-08 16:54] VITALS: BP 122/68; PULSE 87; RESP 20; TEMP 36.3; O2SAT 96
--- NOTE | 2020-10-08 17:15 | DI.RAD_ITS ---
Exam(s) XR FOOT RT COMPLETE EXAM: XR FOOT RT COMPLETE CLINICAL HISTORY: Laceration Heel, R/O Fracture, Foreign body. TECHNIQUE: 2D digital imaging was performed. COMPARISON: No exams were available for comparison FINDINGS: Is prominent soft tissue swelling with the entire right foot. There is no fracture nor diastasis of the main Lisfranc joint. No radiopaque foreign body evident. No obvious radiographic evidence of osteomyelitis. On the lateral view there is a suggestion of a nondisplaced fracture of the base of the proximal phal anx of the 5th toe. There are no other fractures identified. IMPRESSION: Prominent soft tissue swelling. No radiopaque foreign body evident. No radiographic evidence of ost eomyelitis. Subtle nondisplaced fracture the base of the proximal phalanx of the 5th toe. DATA REPOSITORY: RADIATION DOSE DELIVERED:
--- NOTE | 2020-10-08 17:52 | ED.GENADUL_ITS ---
Discharge Plan Disposition Patient Disposition: HOME Condition: Stable Discharge Details Clinical Impression: Laceration of ankle, right, Fracture of toe of right foot Primary Care Provider: Marleen Warren ED Provider: Lisa Amezcua Home Meds and New Rx's Prescriptions: No Action tramadol 50 mg tablet 50 mg PO Q6H PRN (Reason: pain) Qty: 20 RF: 0 ondansetron HCl 8 mg tablet 8 mg PO Q8H PRN (Reason: nausea and vomiting) Qty: 10 RF: 0 prochlorperazine maleate [Compazine] 10 mg tablet 10 mg PO Q6H PRN (Reason: nausea and vomiting) Qty: 15 RF: 0 multivitamin [Daily Value] 1 EACH tablet 1 ea PO DAILY RF: 0 lutein 20 MG capsule 20 mg PO DAILY RF: 0 Victoza 2-Tree 0.6 MG/0.1 ML pen injector 1.8 mg SQ HS RF: 0 melatonin 10 MG capsule 10 mg PO HS RF: 0 mecobalamin (vitamin B12) 1,000 MCG tablet,disintegrating 1,000 mcg Sublingual DAILY RF: 0 cholecalciferol (vitamin D3) 1,000 UNIT capsule 5,000 unit PO DAILY RF: 0 losartan 50 MG tablet 50 mg PO DAILY RF: 0 prednisone 5 MG tablet 5 mg PO DAILY RF: 0 diazepam 2 MG tablet 2 mg PO DAILY PRNRF: 0 duloxetine [Cymbalta] 60 MG capsule,delayed release(DR/EC) 60 mg PO DAILY RF: 0 Livalo 2 MG tablet 1 mg PO DAILY RF: 0 Toujeo SoloStar U-300 Insulin 300 unit/mL (1.5 mL) Insulin Pen 90 unit SUBCUT QAM RF: 0 bupropion HCl [Wellbutrin SR] 100 mg Tablet Sustained-Release 12 Hr 100 mg PO BID RF: 0 diltiazem HCl 300 mg Capsule,Extended Release 24hr 300 mg PO DAILY Qty: 30 RF: 0 furosemide [Lasix] 20 mg tablet 20 mg PO DAILY Qty: 10 RF: 0 Calcium 600 + D(3) 600 mg calcium- 200 unit Capsule 1 cap PO DAILY RF: 0 coenzyme Q10 100 mg Capsule 100 mg PO DAILY RF: 0 Humalog KwikPen Insulin 200 unit/mL (3 mL) insulin pen 30 unit SUBCUT AC RF: 0 metoprolol succinate 50 mg tablet extended release 24 hr 200 mg PO DAILY RF: 0 colesevelam 625 mg tablet 625 mg PO BID RF: 0 vitamin B complex Tablet 1 tab PO DAILY RF: 0 cetirizine 10 mg Tablet 10 mg PO DAILY RF: 0 sucralfate 1 gram Tablet 1 g PO AC & HS Qty: 120 RF: 0 pantoprazole 40 mg Tablet,Delayed Release (Dr/Ec) 40 mg PO BID@0730,2000 Qty: 30 RF: 0 tamsulosin 0.4 mg Capsule 0.4 mg PO DAILY Qty: 14 RF: 0 levofloxacin 750 mg tablet 750 mg PO DAILY Qty: 13 RF: 0 Discharge Instructions Instructions: Laceration (ED) Additional Instructions: Today you had 9 absorbable sutures placed to the laceration, you should absorb within 1 to 2 weeks if not sooner. No soaking keep clean and dry after 12 to 24 hours you may gently wash under running soap and water. Allowed to dry completely. Keep a clean dry dressing on The x-rays show possible toe fractures. Use the postop shoe as needed for immobilization. Follow up with primary care provider in 3-5 days. Return to ED sooner if any worsening or concerns. Increase oral fluids. Please take Tylenol with food every 4-6 hours as needed for pain and swelling. Referrals: Marleen Warren MD [Primary Care Provider] - Discharge Data Discharge Date/Time-TO BE ENTERED AT DEPARTURE: 10/08/20 20:10 Medical Decision Making 75-year-old female presents to the ER with chief complaint of right medial ankle laceration which she sustained prior to arrival. She is wheelchair-bound in a electric wheelchair she states that a shelf came out of the refrigerator crash down when she possibly cut her right ankle on the wheelchair. She has approximately 6 cm laceration noted to the medial aspect of her right ankle full range of motion noted. Also has a small superficial laceration noted to her right second toe. Bleeding is controlled upon arrival. She is wheelchair-boun d, weakness A. fib with RVR, Laceration repaired as noted in procedure note above. 9 simple interrupted sutures placed wound is well approximated. Imaging protocol: XR Right foot. Views: 3 or more views. COMPARISON: No relevant prior studies available. 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 Moderate osteoarthritis of the 1st interphalangeal joint. There are enthesopathic changes at the site of insertion of Achilles tendon. There is a cortical step-off in the lateral margin of base of 5th proximal phalanx, suspicious of nondisplaced fracture. There is a cortical step-off on the medial margin with suspicion of nondisplaced fracture of the base of the 4th metatarsal bone. The Lisfranc joints are normally located. Soft tissues: There is diffuse soft tissue swelling. IMPRESSION: There is suspicion of nondisplaced fracture of the lateral margin of the 5th proximal phalanx. There is nondisplaced fracture of the base of the 4th metatarsal bone. Patient placed in a postop shoe. He did will refer patient to orthopedics in 1 to 2 weeks if needed. Possible second and fourth toe fractures. Instructed on suture care and follow-up and strict return instructions, verbalized understanding. Patient was placed in a Kerlix dressing prior to discharge. Patient is nonambulatory at baseline. HPI General Mode of arrival: EMS . Date/Time Provider Initiated Documentation: 10/08/20 17:22 . Limitations to Documentation: no limitations . Information obtained by: patient and RN notes reviewed . HPI Narrative: 75-year-old female presents to the ER with chief complaint of right medial ankle laceration which she sustained prior to arrival. She is wheelchair-bound in a electric wheelchair she states that a shelf came out of the refrigerator crash down when she possibly cut her right ankle on the wheelchair. She has approximately 6 cm laceration noted to the medial aspect of her right ankle full range of motion noted. Also has a small superficial laceration noted to her right second toe. Bleeding is controlled upon arrival. She is wheelchair- bound, weakness A. fib with RVR, Related Data Home Medications Medication Instructions Recorded Confirmed Livalo 1 mg PO DAILY 07/21/13 03/16/20 diazepam 2 mg PO DAILY PRN 07/21/13 10/08/20 duloxetine [Cymbalta] 60 mg PO DAILY 07/21/13 03/16/20 losartan 50 mg PO DAILY 07/21/13 10/08/20 prednisone 5 mg PO DAILY 07/21/13 10/08/20 Victoza 2-Tree 1.8 mg SQ HS ml 12/23/16 10/08/20 lutein 20 mg PO DAILY 12/23/16 10/08/20 mecobalamin (vitamin B12) 1,000 mcg SUBLINGUAL DAILY 12/23/16 10/08/20 melatonin 10 mg PO HS 12/23/16 10/08/20 multivitamin [Daily Value] 1 ea PO DAILY 12/23/16 10/08/20 cholecalciferol (vitamin D3) 5,000 unit PO DAILY 10/31/17 10/08/20 Darius Durand U-300 Insulin 90 unit SUBCUT QA 10/10/18 10/08/20 bupropion HCl [Wellbutrin SR] 100 mg PO BID 10/10/18 10/08/20 diltiazem HCl 300 mg PO DAILY #30 cap 10/10/18 10/08/20 furosemide [Lasix] 20 mg PO DAILY #10 tab 10/10/18 10/08/20 Calcium 600 + D(3) 1 cap PO DAILY 11/09/19 03/16/20 Humalog KwikPen Insulin 30 unit SUBCUT AC 11/09/19 10/08/20 cetirizine 10 mg PO DAILY 11/09/19 10/08/20 coenzyme Q10 100 mg PO DAILY 11/09/19 03/16/20 colesevelam 625 mg PO BID 11/09/19 03/16/20 metoprolol succinate 200 mg PO DAILY 11/09/19 10/08/20 vitamin B complex 1 tab PO DAILY 11/09/19 10/08/20 pantoprazole 40 mg PO BID@0730,2000 #30 tab 11/14/19 10/08/20 sucralfate 1 g PO AC & HS #120 tab 11/14/19 03/16/20 ondansetron HCl 8 mg tablet 8 mg PO Q8H PRN #10 tab 03/06/20 10/08/20 tramadol 50 mg tablet 50 mg PO Q6H PRN #20 tab 03/06/20 10/08/20 prochlorperazine maleate 10 mg 10 mg PO Q6H PRN #15 tab 03/07/20 10/08/20 tablet levofloxacin 750 mg PO DAILY #13 tab 03/18/20 tamsulosin 0.4 mg PO DAILY #14 cap 03/18/20 10/08/20 Previous Rx's Medication Instructions Recorded diltiazem HCl 300 mg PO DAILY #30 cap 10/10/18 furosemide [Lasix] 20 mg PO DAILY #10 tab 10/10/18 pantoprazole 40 mg PO BID@0730,1999 #30 tab 11/14/19 sucralfate 1 g PO AC & HS #120 tab 11/14/19 ondansetron HCl 8 mg tablet 8 mg PO Q8H PRN #10 tab 03/06/20 tramadol 50 mg tablet 50 mg PO Q6H PRN #20 tab 03/06/20 prochlorperazine maleate 10 mg 10 mg PO Q6H PRN #15 tab 03/07/20 tablet levofloxacin 750 mg PO DAILY #13 tab 03/18/20 tamsulosin 0.4 mg PO DAILY #14 cap 03/18/20 Allergies Allergy/AdvReac Type Severity Reaction Status Date / Time atorvastatin AdvReac Intermediate leg cramps Unverified 10/08/20 17:29 lisinopril AdvReac Intermediate cough Unverified 10/08/20 17:29 General Stated Complaint: Laceration REGAN: 3 Review of Systems All systems reviewed & are unremarkable except as noted in HPI and below Musculoskeletal Musculoskeletal: Reports other Comments: Edema noted to bilateral lower extremities appears chronic patient reports this is chronic Integumentary/Breasts Skin/Breast: Reports wounds (Laceration right ankle, laceration noted to second toe) PFSH Medical History Ambulatory dysfunction Atrial fibrillation C. difficile colitis Diabetes Duodenal ulcer HTN (hypertension) Hx of hyperlipidemia Obesity, morbid, BMI 40.0-49.9 Obstructive sleep apnea Palliative care patient Pulmonary hypertension mild Rheumatoid arteritis Rheumatoid arthritis Surgical History History of cystoscopy History of hysterectomy Hx of cholecystectomy Social History Smoking/Tobacco Use Status: Former Tobacco Use Smoking risk assessment performed?: Yes Alcohol Intake: current Alcohol Intake frequency: holidays/special occasions only Drug use: Never Substance use type: does not use Do you feel safe at home: Yes Do you feel safe in your relationship?: Yes Additional Social history: Lives with her Valeriy [facility]. They moved up here from [place] to be near their daughter. 2 sons in [facility]. 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 Exam Extrem Right lower extremity: ankle Details: laceration (Approximately 6 cm in length) medial Details: linear, actively bleeding, with motor nerve function intact, with distal motor nerve function intact and with distal sensation intact; no foreign body present and not contaminated Ankle/foot/toe images: 1. 6 cm laceration right medial 2. Superficial laceration Course Vital Signs Vital signs: Vital Signs Temperature 36.3 C L 10/08/20 16:54 Pulse 87 10/08/20 16:54 Respiratory Rate 20 10/08/20 16:54 Blood Pressure 122/68 10/08/20 16:54 Pulse Oximetry 96 10/08/20 16:54 Temperature 36.3 C L 10/08/20 16:54 Temperature Source Temporal Artery Scan 10/08/20 16:54 Pulse 87 10/08/20 16:54 Respiratory Rate 20 10/08/20 16:54 Respiratory Effort Non-Labored 10/08/20 17:35 Blood Pressure 122/68 10/08/20 16:54 Blood Pressure Position Supine 10/08/20 16:54 Pulse Oximetry 96 10/08/20 16:54 Oxygen Delivery Method Room Air 10/08/20 16:54 Oxygen Flow Rate 0 10/08/20 16:54 Pain Level 4 10/08/20 16:54 Procedures Laceration Laceration 1: Site: lower extremity Side (If applicable): left Size (cm): 6 Description: linear Depth: simple, single layer Local Anesthetic: Lidocaine 1% and with Epi Amount of anesthesia used (mL): 8 Pre-repair: wound explored and irrigated extensively Skin layer closed with: vicryl (Absorbable) Size (cm): 4-0 Number of sutures: 9 Technique: simple, interrupted
--- NOTE | 2020-10-08 19:08 | NUR.NOTE ---
Nursing Note: 1905 went to on patient and she stated to me that we had forgotten about her, she was unable to use the bathroom, had not taken her insulin and had not eaten. She stated she wanted us to put a bandaid on it and she wanted to leave. Lisa Amezcua NP is aware. Erica Hoyos
--- NOTE | 2020-10-08 19:13 | DI.VRAD_ITS ---
PROCEDURE INFORMATION: Exam: XR Right Foot Exam date and time: 10/08/2020 5:24 PM Age: 75 years old Clinical indication: Injury or trauma; Fall; Laceration; Heel; Right; Foreign body involvement not specified TECHNIQUE: Imaging protocol: XR Right foot. Views: 3 or more views. COMPARISON: No relevant prior studies available. 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 Moderate osteoarthritis of the 1st interphalangeal joint. There are enthesopathic changes at the site of insertion of Achilles tendon. There is a cortical step-off in the lateral margin of base of 5th proximal phalanx, suspicious of nondisplaced fracture. There is a cortical step-off on the medial margin with suspicion of nondisplaced fracture of the base of the 4th metatarsal bone. The Lisfranc joints are normally located. Soft tissues: There is diffuse soft tissue swelling. IMPRESSION: There is suspicion of nondisplaced fracture of the lateral margin of the 5th proximal phalanx. There is nondisplaced fracture of the base of the 4th metatarsal bone. Dictated and Authenticated by: Sai Stewart MD. Ordering:HYUN Gonzalez MD
== END 2020-10-08 20:10 | disposition home or self-care (01) ==
PROVIDERS: Emergency Provider Registered Nurse Emergency; PCP Family Medicine
DX: S91.011A Laceration without foreign body, right ankle, initial encounter (principal); S92.591A Other fracture of right lesser toe(s), initial encounter for closed fracture; W20.8XXA Other cause of strike by thrown, projected or falling object, initial encounter
CPT/HCPCS: 12002; 36416; 82962; 99283; 73630

== ENCOUNTER 2020-10-16 08:54 | Emergency (ER) | payer MEDICARE, MEDICAID, SELFPAY ==
[2020-10-16 09:01] VITALS: BP 159/80; PULSE 95; RESP 18; TEMP 36.5; O2SAT 95
--- NOTE | 2020-10-16 09:25 | W.ED.GENAD ---
Discharge Plan Disposition Patient Disposition: HOME Condition: Stable Discharge Details Clinical Impression: Diabetes, Laceration of ankle, right, Cellulitis Primary Care Provider: Marleen Warren ED Provider: Nathaly Hong Home Meds and New Rx's Prescriptions: New cephalexin 500 mg capsule 500 mg PO Q6H 7 Days Qty: 28 RF: 0 Saccharomyces boulardii [Florastor] 250 mg capsule 250 mg PO BID Qty: 14 RF: 0 Continued tramadol 50 mg tablet 50 mg PO Q6H PRN (Reason: pain) Qty: 20 RF: 0 ondansetron HCl 8 mg tablet 8 mg PO Q8H PRN (Reason: nausea and vomiting) Qty: 10 RF: 0 prochlorperazine maleate [Compazine] 10 mg tablet 10 mg PO Q6H PRN (Reason: nausea and vomiting) Qty: 15 RF: 0 multivitamin [Daily Value] 1 EACH tablet 1 ea PO DAILY RF: 0 lutein 20 MG capsule 20 mg PO DAILY RF: 0 Victoza 2-Tree 0.6 MG/0.1 ML pen injector 1.8 mg SQ HS RF: 0 melatonin 10 MG capsule 10 mg PO HS RF: 0 mecobalamin (vitamin B12) 1,000 MCG tablet,disintegrating 1,000 mcg Sublingual DAILY RF: 0 cholecalciferol (vitamin D3) 1,000 UNIT capsule 5,000 unit PO DAILY RF: 0 losartan 50 MG tablet 50 mg PO DAILY RF: 0 prednisone 5 MG tablet 5 mg PO DAILY RF: 0 diazepam 2 MG tablet 2 mg PO DAILY PRNRF: 0 duloxetine [Cymbalta] 60 MG capsule,delayed release(DR/EC) 60 mg PO DAILY RF: 0 Livalo 2 MG tablet 1 mg PO DAILY RF: 0 Toujeo SoloStar U-300 Insulin 300 unit/mL (1.5 mL) Insulin Pen 90 unit SUBCUT QAM RF: 0 bupropion HCl [Wellbutrin SR] 100 mg Tablet Sustained-Release 12 Hr 100 mg PO BID RF: 0 diltiazem HCl 300 mg Capsule,Extended Release 24hr 300 mg PO DAILY Qty: 30 RF: 0 furosemide [Lasix] 20 mg tablet 20 mg PO DAILY Qty: 10 RF: 0 Calcium 600 + D(3) 600 mg calcium- 200 unit Capsule 1 cap PO DAILY RF: 0 coenzyme Q10 100 mg Capsule 100 mg PO DAILY RF: 0 Humalog KwikPen Insulin 200 unit/mL (3 mL) insulin pen 30 unit SUBCUT AC RF: 0 metoprolol succinate 50 mg tablet extended release 24 hr 200 mg PO DAILY RF: 0 colesevelam 625 mg tablet 625 mg PO BID RF: 0 vitamin B complex Tablet 1 tab PO DAILY RF: 0 cetirizine 10 mg Tablet 10 mg PO DAILY RF: 0 sucralfate 1 gram Tablet 1 g PO AC & HS Qty: 120 RF: 0 pantoprazole 40 mg Tablet,Delayed Release (Dr/Ec) 40 mg PO BID@729,1999 Qty: 30 RF: 0 tamsulosin 0.4 mg Capsule 0.4 mg PO DAILY Qty: 14 RF: 0 levofloxacin 750 mg tablet 750 mg PO DAILY Qty: 13 RF: 0 Discharge Instructions Instructions: Laceration (ED), Cellulitis (ED) Additional Instructions: Please watch your diet carefully and stay away from items having time her blood sugar including sugary drinks, foods high in carbohydrate, watch your carbohydrates Use your short acting insulin with sliding scale to keep your blood sugar maintained Elevate your leg as high as you are able to and limit your leg in the dependent or down position labs but will prolong healing Recheck in 48 hours recommended Yogurt once or twice daily with live active cultures while you are on antibiotics Please return should you develop fever, chills, spreading redness, or if your blood sugar is out of your typical range Check your blood sugars 3 times daily take florastor as prescribed Medical Decision Making No obvious abscess palpated on exam, Vicryl sutures removed by me, pressure dressing applied, patient instructed to elevate her leg, Keflex added to Bactrim regimen, history of C. difficile colitis, placed on Florastor and patient will have yogurt twice daily No indication for admission at this time afebrile, otherwise nontoxic, blood sugars in patient's normal range although poorly controlled, she is alert and oriented in no acute distress with no lymphangitis or cellulitis, no crepitus and full range of motion of her affected extremity She will need 48-hour recheck from early return cautions discussed and patient expressed understanding Her daughter will recheck wound tomorrow and redressed that Two Steri-Strip were applied as wound has dehisced Reviewed previous labs, last creatinine 1.2, last glucose 240 Patient was noted to be dyspneic with exertion and exhibit wheezes, she states this was completely her baseline and that she does not wish evaluated for this She states that otherwise she feels completely fine and came to the emergency room secondary to daughter's request for concern for her leg Differential Diagnosis Differential Diagnosis: Cellulitis, lymphangitis, laceration, abscess Medical Records Medical records reviewed: Yes I reviewed the patient's medical records. Lab Data Lab results reviewed: Yes I reviewed the patient's lab results. HPI General Mode of arrival: ambulatory. Date/Time Provider Initiated Documentation: 10/16/20 08:56. Limitations to Documentation: no limitations. Information obtained by: patient. HPI Narrative: This 75-year-old female with complex medical history consistent with poorly controlled type 2 diabetes insulin-dependent, atrial fibrillation, pulse CHF, rheumatoid arthritis C. difficile colitis presents with report of redness to the medial ankle. She suffered a laceration on 08 October and had sutures placed at that time. She states that there is slightly red 3 days for suture placement and she was started on Bactrim at that time. Patient reports that the area is still red but not significantly worsening. She states her blood sugars have been normal for her. She typically runs in the 2 40-80 range. She also had a sweet tea prior to arrival. She denies any fever or chills. She denies any streaking redness. She denies any weakness or dizziness. She states that she has a chronic wheeze and dyspnea secondary to CHF and COPD. She is wheelchair dependent and feels as though she is at her baseline otherwise. She has been taking the Bactrim as prescribed for the past 3 days. She denies nausea or vomiting. She denies any changes in urination. She did not take any of her diabetes medications prior to arrival reportedly. Related Data Home Medications Medication Instructions Recorded Confirmed Livalo 1 mg PO DAILY 07/21/13 03/16/20 diazepam 2 mg PO DAILY PRN 07/21/13 10/08/20 duloxetine [Cymbalta] 60 mg PO DAILY 07/21/13 03/16/20 losartan 50 mg PO DAILY 07/21/13 10/08/20 prednisone 5 mg PO DAILY 07/21/13 10/08/20 Victoza 2-Tree 1.8 mg SQ HS ml 12/23/16 10/08/20 lutein 20 mg PO DAILY 12/23/16 10/08/20 mecobalamin (vitamin B12) 1,000 mcg SUBLINGUAL DAILY 12/23/16 10/08/20 melatonin 10 mg PO HS 12/23/16 10/08/20 multivitamin [Daily Value] 1 ea PO DAILY 12/23/16 10/08/20 cholecalciferol (vitamin D3) 5,000 unit PO DAILY 10/31/17 10/08/20 Darius Durand U-300 Insulin 90 unit SUBCUT QAM 10/10/18 10/08/20 bupropion HCl [Wellbutrin SR] 100 mg PO BID 10/10/18 10/08/20 diltiazem HCl 300 mg PO DAILY #30 cap 10/10/18 10/08/20 furosemide [Lasix] 20 mg PO DAILY #10 tab 10/10/18 10/08/20 Calcium 600 + D(3) 1 cap PO DAILY 11/09/19 03/16/20 Humalog KwikPen Insulin 30 unit SUBCUT AC 11/09/19 10/08/20 cetirizine 10 mg PO DAILY 11/09/19 10/08/20 coenzyme Q10 100 mg PO DAILY 11/09/19 03/16/20 colesevelam 625 mg PO BID 11/09/19 03/16/20 metoprolol succinate 200 mg PO DAILY 11/09/19 10/08/20 vitamin B complex 1 tab PO DAILY 11/09/19 10/08/20 pantoprazole 40 mg PO BID@0730,2000 #30 tab 11/14/19 10/08/20 sucralfate 1 g PO AC & HS #120 tab 11/14/19 03/16/20 ondansetron HCl 8 mg tablet 8 mg PO Q8H PRN #10 tab 03/06/20 10/08/20 tramadol 50 mg tablet 50 mg PO Q6H PRN #20 tab 03/06/20 10/08/20 prochlorperazine maleate 10 mg 10 mg PO Q6H PRN #15 tab 03/07/20 10/08/20 tablet levofloxacin 750 mg PO DAILY #13 tab 03/18/20 tamsulosin 0.4 mg PO DAILY #14 cap 03/18/20 10/08/20 Saccharomyces boulardii [Florastor] 250 mg PO BID #14 cap 10/16/20 cephalexin 500 mg PO Q6H 7 Days #28 cap 10/16/20 Previous Rx's Medication Instructions Recorded diltiazem HCl 300 mg PO DAILY #30 cap 10/10/18 furosemide [Lasix] 20 mg PO DAILY #10 tab 10/10/18 pantoprazole 40 mg PO BID@0730,2000 #30 tab 11/14/19 sucralfate 1 g PO AC & HS #120 tab 11/14/19 ondansetron HCl 8 mg tablet 8 mg PO Q8H PRN #10 tab 03/06/20 tramadol 50 mg tablet 50 mg PO Q6H PRN #20 tab 03/06/20 prochlorperazine maleate 10 mg 10 mg PO Q6H PRN #15 tab 03/07/20 tablet levofloxacin 750 mg PO DAILY #13 tab 03/18/20 tamsulosin 0.4 mg PO DAILY #14 cap 03/18/20 Saccharomyces boulardii [Florastor] 250 mg PO BID #14 cap 10/16/20 cephalexin 500 mg PO Q6H 7 Days #28 cap 10/16/20 Allergies Allergy/AdvReac Type Severity Reaction Status Date / Time atorvastatin AdvReac Intermediate leg cramps Unverified 10/16/20 09:06 lisinopril AdvReac Intermediate cough Unverified 10/16/20 09:06 General Stated Complaint: GenMedical REGAN: 4 Review of Systems All systems reviewed & are unremarkable except as noted in HPI and below PFSH Medical History Ambulatory dysfunction Atrial fibrillation C. difficile colitis Diabetes Duodenal ulcer HTN (hypertension) Hx of hyperlipidemia Obesity, morbid, BMI 40.0-49.9 Obstructive sleep apnea Palliative care patient Pulmonary hypertension mild Rheumatoid arteritis Rheumatoid arthritis Surgical History History of cystoscopy History of hysterectomy Hx of cholecystectomy Social History Smoking/Tobacco Use Status: Former Tobacco Use Smoking risk assessment performed?: Yes Alcohol Intake: current Alcohol Intake frequency: holidays/special occasions only Drug use: Never Substance use type: does not use Do you feel safe at home: Yes Do you feel safe in your relationship?: Yes Additional Social history: Lives with her Valeriy in [facility], handicapped apartment. They moved up here from [place] to be near their daughter. 2 sons in [place] area. 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 Exam Const General: cooperative and no acute distress Resp Effort & Inspection: able to speak in complete sentences Cardio Rate: regular rate Neuro General: patient alert and patient oriented x3 Extrem Ankle/foot/toe images: 1. Laceration noted, wound dehiscence, no purulent drainage, no crepitus, no tenderness, pink discoloration approximately 1 inch distally, no significant induration or fluctuance, vascularly intact distally, range of motion of ankle intact, no lymphangitis Course Vital Signs Vital signs: Vital Signs Temperature 36.5 C 10/16/20 09:01 Pulse 95 H 10/16/20 09:01 Respiratory Rate 18 10/16/20 09:01 Blood Pressure 159/80 H 10/16/20 09:01 Pulse Oximetry 95 10/16/20 09:01 Temperature 36.5 C 10/16/20 09:01 Temperature Source Skin 10/16/20 09:01 Pulse 95 H 10/16/20 09:01 Respiratory Rate 18 10/16/20 09:01 Respiratory Effort 10/16/20 09:08 Respiratory Depth Normal 10/16/20 09:08 Respiratory Pattern Normal 10/16/20 09:08 Blood Pressure 159/80 H 10/16/20 09:01 Blood Pressure Position Supine 10/16/20 09:01 Pulse Oximetry 95 10/16/20 09:01 Oxygen Delivery Method Room Air 10/16/20 09:01 Oxygen Flow Rate 0 10/16/20 09:01 Pain Level 3 10/16/20 09:01
[2020-10-16] MEDS: Cephalexin 500 MG CAP PO (09:29)
== END 2020-10-16 10:04 | disposition home or self-care (01) ==
PROVIDERS: Emergency Provider Physician Assistant; PCP Family Medicine
DX: L03.115 Cellulitis of right lower limb (principal); S91.011D Laceration without foreign body, right ankle, subsequent encounter; W20.8XXD Other cause of strike by thrown, projected or falling object, subsequent encounter; Y84.8 Other medical procedures as the cause of abnormal reaction of the patient, or of later complication, without mention of misadventure at the time of the procedure; T81.33XA Disruption of traumatic injury wound repair, initial encounter; E11.9 Type 2 diabetes mellitus without complications; Z79.4 Long term (current) use of insulin; Z48.02 Encounter for removal of sutures
CPT/HCPCS: 36416; 82962; 99283

== ENCOUNTER 2020-11-13 15:55 | Outpatient (REF) | payer MEDICARE, MEDICAID, SELFPAY ==
[2020-11-13 15:35] LABS: HCT 39.2 % (36.0-46.0); HGB 12.4 g/dL (11.2-15.7); MCH 30.8 pg (27.0-33.0); MCHC 31.6 % (32.0-36.0); MCV 97.3 fL (80-95); MPV 9.7 fL (8.0-11.0); Platelet Count 415 10^3/uL (130-400); RBC 4.03 10^6/uL (3.93-5.22); RDW 14.6 % (11.7-14.6); RDW-SD 51.7 fL; WBC 8.35 10^3/uL (4.4-10.8)
[2020-11-13 15:56] LABS: COMMENT (LAB VIEW ONLY) 88.33 mg/dL
[2020-11-13 16:02] LABS: BUN 14 mg/dL (7-18); CREATININE 1.1 mg/dL (0.55-1.02); Chloride 99 mmol/L (98-107); Estimated GFR 48.42 (mL/min/1.73m2); Ferritin 98 ng/mL (8-252); Glucose 247 mg/dL (74-106); Potassium 4.9 mmol/L (3.5-5.1); Sodium 137 mmol/L (136-145)
[2020-11-13 16:13] LABS: Microalb ug/mg Crea 139.4 ug/mg Cr
[2020-11-13 16:36] LABS: Hemoglobin A1C 11.2 % (<5.7)
== END 2020-11-13 15:56 | disposition home or self-care (01) ==
LOC: NCHCN 15:55
PROVIDERS: PCP Family Medicine; Visit Provider Family Medicine
DX: D64.9 Anemia, unspecified (principal); I48.0 Paroxysmal atrial fibrillation; E11.65 Type 2 diabetes mellitus with hyperglycemia; I10 Essential (primary) hypertension; R60.0 Localized edema
CPT/HCPCS: 80048; 85027; 82043; 82570; 82728; 83036

== ENCOUNTER 2020-12-12 16:40 | Outpatient (REF) | payer MEDICARE, MEDICAID, SELFPAY ==
[2020-12-12 18:08] LABS: Anion Gap 6.5 mmol/L (3-11); BUN 16 mg/dL (7-18); CO2 30.5 mmol/L (21.0-32.0); Calcium 8.3 mg/dL (8.5-10.1); Chloride 102 mmol/L (98-107); Estimated GFR 54.05 (mL/min/1.73m2); Glucose 186 mg/dL (74-106); Potassium 4.1 mmol/L (3.5-5.1); Sodium 139 mmol/L (136-145)
== END 2020-12-12 16:41 | disposition home or self-care (01) ==
LOC: NCHCN 16:40
PROVIDERS: PCP Family Medicine; Visit Provider Advanced Practice Midwife
DX: Z79.01 Long term (current) use of anticoagulants (principal); Z79.52 Long term (current) use of systemic steroids; E11.65 Type 2 diabetes mellitus with hyperglycemia
CPT/HCPCS: 80048

== ENCOUNTER 2021-01-09 17:38 | Outpatient (REF) | payer MEDICARE, MEDICAID, SELFPAY ==
[2021-01-09 20:44] LABS: Bilirubin Small (Negative); Blood Large (Negative); Clarity Cloudy (Clear); Glucose Negative (Negative); Ketones Trace mg/dL (Negative); Leukocyte Esterase Trace (Negative); Nitrite Negative (Negative); Specific Gravity 1.025 (1.005-1.025); Urobilinogen 0.2 EU/dL (Up TO 0.2)
[2021-01-09 20:55] LABS: Bacteria Many HPF (Negative); RBC >50 HPF (0-2)
[2021-01-09 20:56] LABS: C & S Indicated? Yes; WBC >50 HPF (0-5)
[2021-01-11 10:49] LABS: COVID-19 RT-PCR UVMMC Result Negative (Negative)
== END 2021-01-09 17:39 | disposition home or self-care (01) ==
LOC: LBN 17:38
PROVIDERS: PCP Family Medicine; Visit Provider Family Medicine
DX: Z20.822 Contact with and (suspected) exposure to COVID-19 (principal); R68.89 Other general symptoms and signs
CPT/HCPCS: 87077; U0003; U0005; 81003; 81015; 87086; 87186

== ENCOUNTER 2021-01-16 16:41 | Outpatient (REF) | payer MEDICARE, MEDICAID, SELFPAY ==
[2021-01-16 14:26] LABS: HCT 37.6 % (36.0-46.0); HGB 11.8 g/dL (11.2-15.7); MCH 31.1 pg (27.0-33.0); MCHC 31.4 % (32.0-36.0); MCV 98.9 fL (80-95); MPV 9.9 fL (8.0-11.0); Platelet Count 289 10^3/uL (130-400); RDW 14.1 % (11.7-14.6); RDW-SD 50.6 fL; WBC 6.29 10^3/uL (4.4-10.8)
[2021-01-16 14:52] LABS: ALT 21 U/L (14-59); AST 15 U/L (15-37); Albumin 2.8 g/dL (3.4-5.0); Alkaline Phosphatase 80 U/L (46-116); BUN 15 mg/dL (7-18); Bilirubin, Total 0.3 mg/dL (0.2-1.0); CREATININE 1.4 mg/dL (0.55-1.02); Calcium 8.4 mg/dL (8.5-10.1); Chloride 100 mmol/L (98-107); Estimated GFR 36.66 (mL/min/1.73m2); Ferritin 78 ng/mL (8-252); Glucose 272 mg/dL (74-106); Sodium 138 mmol/L (136-145); Total Protein 6.6 g/dL (6.4-8.2)
== END 2021-01-16 16:42 | disposition home or self-care (01) ==
LOC: LBN 16:41
PROVIDERS: PCP Family Medicine; Visit Provider Family Medicine
DX: E11.65 Type 2 diabetes mellitus with hyperglycemia (principal); I10 Essential (primary) hypertension; D64.9 Anemia, unspecified; R60.0 Localized edema
CPT/HCPCS: 80053; 85027; 82728; 83036

== ENCOUNTER 2021-02-15 14:54 | Outpatient (REF) | payer MEDICARE, MEDICAID, SELFPAY ==
[2021-02-15 15:52] LABS: Bilirubin Negative (Negative); Blood Moderate (Negative); Clarity Cloudy (Clear); Glucose Negative (Negative); Ketones Negative (Negative); Leukocyte Esterase Large (Negative); Nitrite Negative (Negative); Specific Gravity >= 1.030 (1.005-1.025); Urobilinogen 0.2 EU/dL (Up TO 0.2)
[2021-02-15 16:07] LABS: Bacteria Many HPF (Negative); C & S Indicated? C&S Done As Ordered; Casts Negative LPF (Negative); Crystals Negative HPF (Negative); Epithelial Cells Few HPF (Negative); Mucus Moderate (Negative); WBC >50 HPF (0-5)
== END 2021-02-15 14:55 | disposition home or self-care (01) ==
LOC: NCHCN 14:54
PROVIDERS: PCP Family Medicine; Visit Provider Family Medicine
DX: N39.0 Urinary tract infection, site not specified (principal)
CPT/HCPCS: 87077; 81003; 81015; 87086; 87186

== ENCOUNTER 2021-05-02 15:14 | Outpatient (REF) | payer MEDICARE, MEDICAID, SELFPAY | END 2021-05-02 15:15 | disposition home or self-care (01) | LOC: NCHCN 15:14 | PROVIDERS: PCP Family Medicine; Visit Provider Family Medicine | DX: N39.0 Urinary tract infection, site not specified (principal) | CPT/HCPCS: 87077; 87086; 87186 ==

== ENCOUNTER 2021-05-03 13:12 | Outpatient (REF) | payer MEDICARE, MEDICAID, SELFPAY ==
[2021-05-03 18:42] LABS: HCT 39.9 % (36.0-46.0); HGB 12.8 g/dL (11.2-15.7); MCH 31.7 pg (27.0-33.0); MCHC 32.1 % (32.0-36.0); MCV 98.8 fL (80-95); MPV 10.4 fL (8.0-11.0); Platelet Count 396 10^3/uL (130-400); RBC 4.04 10^6/uL (3.93-5.22); RDW 14.1 % (11.7-14.6); RDW-SD 50.9 fL; WBC 9.03 10^3/uL (4.4-10.8)
[2021-05-03 18:59] LABS: Hemoglobin A1C 9.3 % (<5.7)
[2021-05-03 19:03] LABS: Anion Gap 9.9 mmol/L (3-11); BUN 16 mg/dL (7-18); CO2 27.1 mmol/L (21.0-32.0); CREATININE 1.3 mg/dL (0.55-1.02); Calcium 8.4 mg/dL (8.5-10.1); Chloride 97 mmol/L (98-107); Estimated GFR 39.82 (mL/min/1.73m2); Ferritin 87 ng/mL (8-252); Glucose 368 mg/dL (74-106); Potassium 4.7 mmol/L (3.5-5.1); Sodium 134 mmol/L (136-145)
[2021-05-07 10:08] LABS: Hepatitis C Ab w Rflx HCV PCR Negative (Negative)
== END 2021-05-03 13:13 | disposition home or self-care (01) ==
LOC: NCHCN 13:12
PROVIDERS: PCP Family Medicine; Visit Provider Family Medicine
DX: E11.65 Type 2 diabetes mellitus with hyperglycemia (principal); D64.9 Anemia, unspecified; I10 Essential (primary) hypertension; I48.0 Paroxysmal atrial fibrillation; R60.0 Localized edema; Z11.59 Encounter for screening for other viral diseases
CPT/HCPCS: 80048; 85027; 86803; 82728; 83036

== ENCOUNTER 2021-06-12 18:41 | Outpatient (REF) | payer MEDICARE, MEDICAID, SELFPAY ==
[2021-06-12 20:42] LABS: Abs Immature Grans 0.02 10^3/uL (0.0-0.06); Absolute Basophil Count 0.02 10^3/uL (0.0-0.2); Absolute Eosinophil Count 0.11 10^3/uL (0.0-0.7); Absolute Lymphocyte Count 1.45 10^3/uL (1.2-3.4); Absolute Monocyte Count 0.51 10^3/uL (0.1-0.8); Absolute Neutrophil Count 3.56 10^3/uL (1.2-6.7); Basophils % 0.4; Eosinophils % 1.9; HCT 35.8 % (36.0-46.0); HGB 11.2 g/dL (11.2-15.7); Immature Grans % 0.4; Lymphocytes % 25.6; MCH 31.2 pg (27.0-33.0); MCHC 31.3 % (32.0-36.0); MCV 99.7 fL (80-95); MPV 9.7 fL (8.0-11.0); Neutrophils % 62.7; Nucleated RBC 0 %; Platelet Count 406 10^3/uL (130-400); RBC 3.59 10^6/uL (3.93-5.22); RDW 14.3 % (11.7-14.6); RDW-SD 52.4 fL; WBC 5.67 10^3/uL (4.4-10.8)
[2021-06-12 20:50] LABS: ALT 18 U/L (14-59); AST 15 U/L (15-37); Alkaline Phosphatase 106 U/L (46-116); Anion Gap 13.2 mmol/L (3-11); BUN 15 mg/dL (7-18); Bilirubin, Total 0.3 mg/dL (0.2-1.0); CO2 22.8 mmol/L (21.0-32.0); CREATININE 1.6 mg/dL (0.55-1.02); Calcium 8.6 mg/dL (8.5-10.1); Chloride 98 mmol/L (98-107); Estimated GFR 31.34 (mL/min/1.73m2); Glucose 362 mg/dL (74-106); Potassium 3.8 mmol/L (3.5-5.1); Sodium 134 mmol/L (136-145); TSH (W/Ref FT4) 1.32 uIU/mL (0.36-3.74); Total Protein 7.3 g/dL (6.4-8.2); Vitamin B12 1625 pg/mL (193-986)
[2021-06-12 21:01] LABS: C-Reactive Protein 3.15 mg/dL (0.0-0.3)
== END 2021-06-12 18:42 | disposition home or self-care (01) ==
LOC: NCHCN 18:41
PROVIDERS: PCP Family Medicine; Visit Provider Family Medicine
DX: R61 Generalized hyperhidrosis (principal); D64.9 Anemia, unspecified
CPT/HCPCS: 80053; 82607; 84443; 85025; 86140

== ENCOUNTER 2021-06-27 18:40 | Outpatient (REF) | payer MEDICARE, MEDICAID, SELFPAY ==
[2021-06-27 20:07] LABS: Bilirubin Negative (Negative); Blood Moderate (Negative); Clarity Turbid (Clear); Glucose Negative (Negative); Ketones Negative (Negative); Leukocyte Esterase Large (Negative); Nitrite Negative (Negative); Specific Gravity >= 1.030 (1.005-1.025); Urobilinogen 0.2 EU/dL (Up TO 0.2); pH 6.5 (5-8)
[2021-06-27 20:18] LABS: C & S Indicated? Yes; WBC >50 HPF (0-5)
== END 2021-06-27 18:41 | disposition home or self-care (01) ==
LOC: NCHCN 18:40
PROVIDERS: PCP Family Medicine; Visit Provider Family Medicine
DX: N39.0 Urinary tract infection, site not specified (principal)
CPT/HCPCS: 87077; 81003; 81015; 87086; 87186

== ENCOUNTER 2021-07-17 14:58 | Outpatient (REF) | payer MEDICARE, MEDICAID, SELFPAY ==
[2021-07-17 16:20] LABS: HGB 12.7 g/dL (11.2-15.7); MCH 30.9 pg (27.0-33.0); MCHC 31.8 % (32.0-36.0); MCV 97.3 fL (80-95); MPV 9.8 fL (8.0-11.0); Platelet Count 372 10^3/uL (130-400); RBC 4.11 10^6/uL (3.93-5.22); RDW 13.6 % (11.7-14.6); RDW-SD 49.5 fL; WBC 7.43 10^3/uL (4.4-10.8)
[2021-07-17 16:47] LABS: ESR 70 mm/hr (0-30)
[2021-07-17 17:09] LABS: Hemoglobin A1C 8.2 % (<5.7)
[2021-07-17 17:28] LABS: Anion Gap 8.7 mmol/L (3-11); BUN 15 mg/dL (7-18); C-Reactive Protein 0.97 mg/dL (0.0-0.3); CO2 26.3 mmol/L (21.0-32.0); CREATININE 1.2 mg/dL (0.55-1.02); Calcium 8.7 mg/dL (8.5-10.1); Chloride 101 mmol/L (98-107); Estimated GFR 43.68 (mL/min/1.73m2); Glucose 191 mg/dL (74-106); Potassium 4.2 mmol/L (3.5-5.1); Sodium 136 mmol/L (136-145)
[2021-07-17 18:28] LABS: Bilirubin Negative (Negative); Blood Moderate (Negative); Clarity Cloudy (Clear); Glucose Negative (Negative); Ketones Negative (Negative); Leukocyte Esterase Large (Negative); Nitrite Negative (Negative); Specific Gravity >= 1.030 (1.005-1.025); Urobilinogen 0.2 EU/dL (Up TO 0.2); pH 6.5 (5-8)
[2021-07-17 20:09] LABS: Bacteria Many HPF (Negative); C & S Indicated? Yes; WBC >50 HPF (0-5)
[2021-07-17 21:58] LABS: Rheumatoid Factor 10.7 IU/mL (<12.0)
[2021-07-18 09:42] LABS: Cyclic Citrullinated Peptide <2.5 U/mL (<5.0)
== END 2021-07-17 14:59 | disposition home or self-care (01) ==
LOC: NCHCN 14:58
PROVIDERS: PCP Family Medicine; Visit Provider Family Medicine
DX: I10 Essential (primary) hypertension (principal); E11.65 Type 2 diabetes mellitus with hyperglycemia; R63.4 Abnormal weight loss; R61 Generalized hyperhidrosis; R60.0 Localized edema; M06.9 Rheumatoid arthritis, unspecified
CPT/HCPCS: 80048; 85027; 85652; 86200; 87077; 81003; 81015; 83036; 86140; 86431; 87086; 87186

== ENCOUNTER → 2021-07-23 15:25 | Outpatient (BNVA) | payer MEDICARE, MEDICAID, SELFPAY | PROVIDERS: PCP Family Medicine; Visit Provider Nurse Practitioner Gerontology | DX: N39.0 Urinary tract infection, site not specified (principal); N20.0 Calculus of kidney | CPT/HCPCS: 99214 ==

== ENCOUNTER → 2021-09-07 01:02 | Outpatient (CLI) | payer MEDICARE, MEDICAID, SELFPAY ==
--- NOTE | 2021-09-07 07:45 | DI.CT_ITS ---
Exam(s) CT RENAL COLIC WO EXAM: CT RENAL COLIC WO CLINICAL HISTORY: stone r/o, recurrent UTI, N39.0. TECHNIQUE: Imaging Protocol: Axial computed tomography images with coronal and sagittal reformatted images were created and reviewed. CONTRAST MATERIAL: Noncontrast COMPARISON: CT CT ABDOMEN PELVIS WO from 03/16/2020 FINDINGS: ABDOMEN: Lung Bases: Normal where visualized. Liver: Normal attenuation. No measurable mass. Gallbladder and biliary tract: Status post cholecystectomy. No radiodense calculus or dilation. Pancreas: Somewhat atrophic., no calcifications or inflammatory process. Spleen: Normal. Kidneys: Normal size, contour and axis. Several stones in the lower right ureter common is in similar location as the previous exam. Largest stone measures 12 millimeters in length by 8 millimeters in d iameter. 5 millimeter nonobstructing stone mid right kidney. Moderate right hydronephrosis. Air is al so seen within the right renal pelvis and calyces as well as in the upper ureter. Few tiny nonobstruc ting stones are noted in the left kidney. There is a small left renal cyst. No masses seen. Adrenal glands: No masses seen. Abdominal Aorta: Abdominal portion non-dilated. Mild atherosclerotic changes. Soft tissues: Small amount of fat at the umbilicus. Lipoma adjacent to the left paraspinal muscles. PELVIS: Bladder: Nearly empty. Bladder air is present. There is wall thickening. There is a stent in the blad ivania and extending to the distal ureter adjacent to the distal ureteral calculi. Is similar appearance to the previous exam. Bowel: No obstruction or bowel wall thickening. Appendix normal. Diverticulosis. No evidence of di verticulitis. Peritoneal cavity: No ascites, collection or mesenteric inflammatory response. Reproductive: Status p ost hysterectomy. Bones: Degenerative changes in the spine IMPRESSION: Distal ureteral calculi with some increase in size and number when compared the previous exam. The la rgest stone is similar in position. A thin stent is again noted in the distal right ureter and urinar y bladder. There is air in the urinary bladder which could be related to instrumentation versus infec tion. Air is also seen within the right renal collecting system. Bilateral nonobstructing renal calcu li are present. RADIATION DOSE DELIVERED: 1,402.51mGy.cm Total DLP DATA REPOSITORY: All CT scans at this facility are submitted to the National Radiology Data Registry (NRDR) Dose Index Registry (DIR) with the [employer] (ACR). RADIATION OPTIMIZATION: All CT scans at this facility use at least one of these dose optimization te chniques: automated exposure control; mA and/or kV adjustment per patient size (includes targeted exa ms where dose is matched to clinical indication); or iterative reconstruction.
== END ==
PROVIDERS: PCP Family Medicine; Visit Provider Nurse Practitioner Gerontology
DX: N39.0 Urinary tract infection, site not specified (principal); N20.2 Calculus of kidney with calculus of ureter; N28.1 Cyst of kidney, acquired; N13.30 Unspecified hydronephrosis
CPT/HCPCS: 74176

== ENCOUNTER → 2021-09-11 10:33 | Outpatient (BNVA) | payer MEDICARE, MEDICAID, SELFPAY | PROVIDERS: PCP Family Medicine; Referring Provider Family Medicine; Visit Provider Nurse Practitioner Gerontology | DX: B96.1 Klebsiella pneumoniae [K. pneumoniae] as the cause of diseases classified elsewhere (principal); R82.998 Other abnormal findings in urine; N39.0 Urinary tract infection, site not specified | CPT/HCPCS: 99214 ==

== ENCOUNTER 2021-09-25 02:11 | Outpatient (CLI) | payer MEDICARE, MEDICAID, SELFPAY ==
[2021-09-25 12:26] LABS: Source Nasal/Nares
[2021-09-25 15:29] LABS: COVID-19 PCR Positive (Negative)
== END 2021-09-25 02:12 | disposition home or self-care (01) ==
LOC: LBO 02:11
PROVIDERS: Urology; PCP Family Medicine; Visit Provider Nurse Practitioner Gerontology
DX: Z20.822 Contact with and (suspected) exposure to COVID-19 (principal); Z01.818 Encounter for other preprocedural examination
CPT/HCPCS: 87635; U0005

== ENCOUNTER 2021-09-27 11:13 | Inpatient (IN) | payer MEDICARE, MEDICAID, SELFPAY ==
[2021-09-27] VITALS (46 sets, daily range): BP systolic 96–146; BP diastolic 57–83; PULSE 63–102; RESP 10–21; TEMP 36.6–36.8; O2SAT 90–96
--- NOTE | 2021-09-27 11:00 | RT.EKG_ITS ---
APPROVED REPORT Exam: Resting ECG Reason for Exam: chest pain Patient Location: E HR:63 bpm ECG Measurements Heart Rate 63 AXIS NC [id number] P [id number] QRSd 98 QRS 44 QT 428 T 94 QTc 440 Conclusion Atrial fibrillation...? atrial activity Low voltage, extremity leads...all extremity leads <0.5mV
--- NOTE | 2021-09-27 11:09 | W.ED.GENAD ---
Discharge Plan Disposition Patient Disposition: [facility] INPATIENT Condition: Serious Discharge Details Chief Complaint: RespSymp Clinical Impression: Non-ST elevation MA (NSTEMI), COVID Primary Care Provider: Marleen Warren ED Provider: Rey Osman Home Meds and New Rx's Prescriptions: No Action colestipol 1 gram tablet 1 g PO BID ferrous fumarate 325 mg (106 mg iron) tablet 325 mg PO DAILY metformin 500 mg tablet 500 mg PO DAILY nystatin 100,000 unit/gram cream 1 applic topical TID mirtazapine 15 mg tablet 15 mg PO QHS Qty: 30 0RF Rx Instructions: increased dose from 7.5 mg Toujeo SoloStar U-300 Insulin 300 unit/mL (1.5 mL) insulin pen 100 unit subcut DAILY Eliquis 5 mg tablet 2.5 mg PO BID oxycodone 10 mg tablet 20 mg PO DAILY PRN magnesium oxide 400 mg (241.3 mg magnesium) tablet 400 mg PO DAILY diphenhydramine HCl 50 mg capsule 50 mg PO QHS furosemide [Lasix] 20 mg tablet 20 mg PO DAILY metoprolol succinate 200 mg capsule,sprinkle,ER 24hr 200 mg PO DAILY bupropion HCl [Wellbutrin SR] 100 mg tablet sustained-release 12 hr 100 mg PO BID trazodone 50 mg tablet 50 mg PO DAILY multivitamin [Daily Value] 1 EACH tablet 1 ea PO DAILY Victoza 2-Tree 0.6 MG/0.1 ML pen injector 1.8 mg SQ HS melatonin 10 MG capsule 10 mg PO HS mecobalamin (vitamin B12) 1,000 MCG tablet,disintegrating 1,000 mcg Sublingual DAILY prednisone 5 MG tablet 5 mg PO DAILY duloxetine [Cymbalta] 60 MG capsule,delayed release(DR/EC) 60 mg PO DAILY Label Comments: I DO NOT TAKE THAT ANYMORE Livalo 2 MG tablet 1 mg PO DAILY diltiazem HCl 300 mg Capsule,Extended Release 24hr 300 mg PO DAILY Qty: 30 0RF Calcium 600 + D(3) 600 mg calcium- 200 unit Capsule 1 cap PO DAILY coenzyme Q10 100 mg Capsule 100 mg PO DAILY Humalog KwikPen Insulin 200 unit/mL (3 mL) insulin pen 30 unit SUBCUT AC Label Comments: INJECT 30 UNITS UNDER THE SKIN BEFORE EACH MEAL Rx Instructions: BEFORE EACH MEAL vitamin B complex Tablet 1 tab PO DAILY pantoprazole 40 mg Tablet,Delayed Release (Dr/Ec) 40 mg PO BID@ Qty: 30 0RF tamsulosin 0.4 mg Capsule 0.4 mg PO DAILY Qty: 14 0RF Saccharomyces boulardii [Florastor] 250 mg capsule 250 mg PO BID Qty: 14 0RF Paxlovid (EUA) 150-100 mg tablet 150 tab PO BID Label Comments: Take 2 tablets by mouth twice daily for 5 days Rx Instructions: take 2 tabs by mouth twice daily prednisone 5 mg tablet 5 mg PO DAILY diltiazem HCl 300 mg capsule,extended release 24hr 300 mg PO DAILY diphenhydramine HCl 50 mg capsule 50 mg PO DAILY Label Comments: Take 1 capsule by mouth every night Medical Decision Making This is a 76-year-old female, full code, past medical history of diabetes, obesity, renal failure, A. fib, on apixaban, presenting to the ER for evaluation of right-sided chest pain, mild dry cough, initially told for a couple of days but then she tells me it began today. She took 2 full dose aspirin prior to arrival, pain went from a 5 down to a 3, pain is only present with what she describes as inspiration, it is not positional. Clinically she appears well, nontoxic. Plan is to initiate a cardiac work-up including a D-dimer and Fluvid, she was initiated on Paxlovid 2 days ago. Initial laboratory values reveal a white blood cell count of 4.22 hemoglobin 12.2 hematocrit 37.0 platelet count 293. Her D-dimer is 665 and this is negative when age-adjusted, will not pursue CTA of the chest. Electrolytes unremarkable, creatinine 1.1 with a GFR of 48.29 magnesium of 1.4, will provide 1 g IV now. LFTs unremarkable. BNP of 264. Troponin elevated at 723. COVID-positive Given her elevated troponin and right-sided chest pain will give nitro sublingual x3. A total of 2 doses given and she is now pain-free, declines the third dose. Concern for NSTEMI versus atypical myocarditis. The case was discussed and consulted with cardiology at [facility], MANN Willard. Recommends treating as an NSTEMI, initiating a heparin drip and bolus, Plavix 300 mg p.o., and an echo if possible. Likely transfer to their facility tomorrow when a bed becomes available into the care of Dr. Rod. Case then discussed with our hospitalist, Dr. Machuca, who is agreeable to admission and will write admission orders This documentation was generated using Mtimeation system, please disregard any oddities of phrase or misspellings. Medical Records Medical records reviewed: Yes I reviewed the patient's medical records. Imaging Data Radiologic Study: Attestation: I personally reviewed and interpreted this imaging study as follows: Radiologist's impression: XR PORTABLE CHEST AP EXAM: XR PORTABLE CHEST AP CLINICAL HISTORY: R sided chest pain, covid +. TECHNIQUE: 2D digital imaging was performed. COMPARISON: CR,XR XR CHEST 2V PA LATERAL from 11/14/2019 FINDINGS: Single AP portable view. Cardiomegaly. The mediastinum is not widened. No confluent infiltrates nor pleural effusions. No pulmonary edema. No pneumothorax. Chest leads in place IMPRESSION: No acute pulmonary findings on this single AP portable view of the chest. Lab Data Lab results reviewed: Yes I reviewed the patient's lab results. Labs: Laboratory Tests Range/Units 09/27/21 09/27/21 09/27/21 11:35 11:37 11:37 WBC (4.4-10.8) 10^3/uL 4.22 L RBC (3.93-5.22) 10^6/uL 4.09 Hgb (11.2-15.7) g/dL 12.2 Hct (36.0-46.0) % 37.0 MCV (80-95) fL 91 MCH (27.0-33.0) pg 29.8 MCHC (32.0-36.0) % 33.0 RDW (11.7-14.6) % 13.2 Plt Count (130-400) 10^3/uL 293 MPV (8.0-11.0) fL 9.3 Immature Gran % 0.7 Neutrophils % 56.9 Lymphocytes % 25.8 Monocytes % 14.5 Eosinophils % 1.9 Basophils % 0.2 Nucleated RBC % (0.0-0.3) % 0.0 Absolute Neutrophils (1.2-6.7) 10^3/uL 2.40 Absolute Lymphocytes (1.2-3.4) 10^3/uL 1.09 L Absolute Monocytes (0.1-0.8) 10^3/uL 0.61 Absolute Eosinophils (0.0-0.7) 10^3/uL 0.08 Absolute Basophils (0.0-0.2) 10^3/uL 0.01 PT (9.3-11.0) sec INR (0.9-1.1) APTT (21.0-27.5) sec D-Dimer (<500) ng/mlFEU Sodium (136-145) mmol/L 138 Potassium (3.5-5.1) mmol/L 3.5 Chloride (98-107) mmol/L 101 Carbon Dioxide (21.0-32.0) mmol/L 29.9 Anion Gap (3-11) mmol/L 7.1 BUN (7-18) mg/dL 13 Creatinine (0.55-1.02) mg/dL 1.1 H Estimated GFR/1.73 m2 (mL/min/1.73m2) 48.29 Glucose (74-106) mg/dL 185 H Calcium (8.5-10.1) mg/dL 8.7 Magnesium (1.8-2.4) mg/dL 1.4 L Total Bilirubin (0.2-1.0) mg/dL 0.3 AST (15-37) U/L 26 ALT (14-59) U/L 20 Alkaline Phosphatase (46-116) U/L 115 Troponin I (<or=60) ng/L 723 H* NT-Pro-B Natriuret Pep (<300) pg/mL 264 Total Protein (6.4-8.2) g/dL 7.4 Albumin (3.4-5.0) g/dL 2.9 L Lipase (73-393) U/L COVID-19 Source Nasopharynx SARS-CoV-2 (PCR) (Negative) Positive A Influenza Type A (PCR) (Negative) Negative Influenza Type B (PCR) (Negative) Negative RSV (PCR) (Negative) Negative Range/Units 09/27/21 09/27/21 11:37 11:37 WBC (4.4-10.8) 10^3/uL RBC (3.93-5.22) 10^6/uL Hgb (11.2-15.7) g/dL Hct (36.0-46.0) % MCV (80-95) fL MCH (27.0-33.0) pg MCHC (32.0-36.0) % RDW (11.7-14.6) % Plt Count (130-400) 10^3/uL MPV (8.0-11.0) fL Immature Gran % Neutrophils % Lymphocytes % Monocytes % Eosinophils % Basophils % Nucleated RBC % (0.0-0.3) % Absolute Neutrophils (1.2-6.7) 10^3/uL Absolute Lymphocytes (1.2-3.4) 10^3/uL Absolute Monocytes (0.1-0.8) 10^3/uL Absolute Eosinophils (0.0-0.7) 10^3/uL Absolute Basophils (0.0-0.2) 10^3/uL PT (9.3-11.0) sec 10.4 INR (0.9-1.1) 1.0 APTT (21.0-27.5) sec 27.6 H D-Dimer (<500) ng/mlFEU 665 H Sodium (136-145) mmol/L Potassium (3.5-5.1) mmol/L Chloride (98-107) mmol/L Carbon Dioxide (21.0-32.0) mmol/L Anion Gap (3-11) mmol/L BUN (7-18) mg/dL Creatinine (0.55-1.02) mg/dL Estimated GFR/1.73 m2 (mL/min/1.73m2) Glucose (74-106) mg/dL Calcium (8.5-10.1) mg/dL Magnesium (1.8-2.4) mg/dL Total Bilirubin (0.2-1.0) mg/dL AST (15-37) U/L ALT (14-59) U/L Alkaline Phosphatase (46-116) U/L Troponin I (<or=60) ng/L NT-Pro-B Natriuret Pep (<300) pg/mL Total Protein (6.4-8.2) g/dL Albumin (3.4-5.0) g/dL Lipase (73-393) U/L 89 COVID-19 Source SARS-CoV-2 (PCR) (Negative) Influenza Type A (PCR) (Negative) Influenza Type B (PCR) (Negative) RSV (PCR) (Negative) ECG Data Attestation: I personally reviewed and interpreted this ECG (s) as follows: Interpretation: Please see official report by Dr. Street. Machelle joy, ventricular of 63, no STEMI HPI General Mode of arrival: ambulatory. Date/Time Provider Initiated Documentation: 09/27/21 11:15. Limitations to Documentation: no limitations. Information obtained by: patient and EMS. HPI Narrative: This is a 76-year-old female, palliative care patient, past medical history of diabetes, A. rufino, on apixaban, adjustment disorder, renal failure, hypertension, pulmonary hypertension, RA, presenting to the ER via EMS reporting right-sided chest pain with inspiration and a mild dry cough over the past 2 days. Patient states that her was diagnosed with COVID 2 days ago. Patient was placed on Paxlovid 2 days ago. She tells me that her discomfort was a 5 out of 10 but she took 2 full dose aspirin and now has no pain at rest but with deep breathing does have right-sided chest pain 2 or 3 out of 10. She denies headache, fever, sore throat, shortness of breath, abdominal pain, nausea, vomiting, change in bowel or bladder function, increased pain or swelling in her legs. She reports baseline swelling in her legs. Patient tells me that she is taking all of her medications as directed. Denies history of MA or stents. Related Data Home Medications Medication Instructions Recorded Confirmed duloxetine 60 mg capsule,delayed 60 mg PO DAILY 07/21/13 09/27/21 release (Cymbalta) pitavastatin calcium 2 mg tablet 1 mg PO DAILY 07/21/13 09/27/21 (Livalo) prednisone 5 mg tablet 5 mg PO DAILY 07/21/13 12/01/20 liraglutide 0.6 mg/0.1 mL (18 mg/3 1.8 mg SQ HS 12/23/16 09/27/21 mL) subcutaneous pen injector (Victoza 2-Tree) mecobalamin (vitamin B12) 1,000 1,000 mcg sublingual DAILY 12/23/16 12/01/20 mcg disintegrating tablet,sublingual melatonin 10 mg capsule 10 mg PO HS 12/23/16 09/27/21 multivitamin (Daily Value tablet) 1 ea PO DAILY 12/23/16 09/27/21 diltiazem HCl 300 mg 300 mg PO DAILY #30 caps 10/10/18 12/01/20 capsule,extended release 24 hr calcium carbonate 600 mg-vitamin 1 cap PO DAILY 11/09/19 12/01/20 D3 5 mcg (200 unit) capsule (Calcium 600 + D(3)) coenzyme Q10 100 mg capsule 100 mg PO DAILY 11/09/19 12/01/20 insulin lispro 200 unit/mL (3 mL) 30 unit subcut AC 11/09/19 12/01/20 subcutaneous pen (Humalog KwikPen U-200 Insulin) vitamin B complex 1 tab PO DAILY 11/09/19 09/27/21 pantoprazole 40 mg tablet,delayed 40 mg PO BID@07,1999 #30 tabs 11/14/19 09/27/21 release tamsulosin 0.4 mg capsule 0.4 mg PO DAILY #14 caps 03/18/20 09/27/21 Saccharomyces boulardii 250 mg 250 mg PO BID #14 caps 10/16/20 12/01/20 capsule (Florastor) colestipol 1 gram tablet 1 g PO BID 11/28/20 09/27/21 ferrous fumarate 325 mg (106 mg 325 mg PO DAILY 11/28/20 12/01/20 iron) tablet metformin 500 mg tablet 500 mg PO DAILY 11/28/20 09/27/21 nystatin 100,000 unit/gram topical 1 applic topical TID 11/28/20 09/27/21 cream mirtazapine 15 mg tablet 15 mg PO QHS #30 tabs 12/01/20 12/01/20 apixaban 5 mg tablet (Eliquis) 2.5 mg PO BID 07/23/21 09/27/21 bupropion HCl 100 mg tablet,12 hr 100 mg PO BID 07/23/21 09/27/21 sustained-release (Wellbutrin SR) diphenhydramine HCl 50 mg capsule 50 mg PO QHS 07/23/21 furosemide 20 mg tablet (Lasix) 20 mg PO DAILY 07/23/21 09/27/21 insulin glargine U-300 conc 300 100 unit subcut DAILY 07/23/21 09/27/21 unit/mL (1.5 mL) subcutaneous pen (Toujeo SoloStar U-300 Insulin) magnesium oxide 400 mg (241.3 mg 400 mg PO DAILY 07/23/21 09/27/21 magnesium) tablet metoprolol succinate 200 mg 200 mg PO DAILY 07/23/21 09/27/21 capsule sprinkle, ext. release 24 hr oxycodone 10 mg tablet 20 mg PO DAILY PRN 07/23/21 09/27/21 trazodone 50 mg tablet 50 mg PO DAILY 07/23/21 09/27/21 diltiazem HCl 300 mg 300 mg PO DAILY 09/27/21 09/27/21 capsule,extended release 24 hr diphenhydramine HCl 50 mg capsule 50 mg PO DAILY 09/27/21 09/27/21 nirmatrelvir 150 mg-ritonavir 100 150 tab PO BID 09/27/21 09/27/21 mg tablet (EUA) (Paxlovid) prednisone 5 mg tablet 5 mg PO DAILY 09/27/21 09/27/21 Previous Rx's Medication Instructions Recorded diltiazem HCl 300 mg 300 mg PO DAILY #30 caps 10/10/18 capsule,extended release 24 hr pantoprazole 40 mg tablet,delayed 40 mg PO BID@0730,1999 #30 tabs 11/14/19 release tamsulosin 0.4 mg capsule 0.4 mg PO DAILY #14 caps 03/18/20 Saccharomyces boulardii 250 mg 250 mg PO BID #14 caps 10/16/20 capsule (Florastor) mirtazapine 15 mg tablet 15 mg PO QHS #30 tabs 12/01/20 Allergies Allergy/AdvReac Type Severity Reaction Status Date / Time atorvastatin AdvReac Intermediate leg cramps Unverified 09/27/21 11:26 lisinopril AdvReac Intermediate cough Unverified 09/27/21 11:26 General REGAN: 4 Review of Systems Constitutional Constitutional: Denies fever(s), Denies headache(s) and Denies weakness Eyes Eyes: Denies change in vision ENT Ears, Nose, Mouth, and Throat: Denies headache(s) and Denies neck pain Cardiovascular Cardiovascular: Reports chest pain and Denies dyspnea Respiratory Respiratory: Reports cough and Denies dyspnea Gastrointestinal Gastrointestinal: Denies abdominal pain, Denies nausea and Denies vomiting Genitourinary Genitourinary: Denies dysuria Musculoskeletal Musculoskeletal: Denies back pain and Denies neck pain Integumentary/Breasts Skin/Breast: Denies rash Neurologic Neurologic: Denies headache(s) and Denies weakness Hematologic/Lymphatic Hematologic/Lymphatic: Reports easy bleeding and Reports easy bruising PFSH All Active Problems (Updated 09/27/21 @ 14:07 by ALFRED Hollis) Non-ST elevation MA (NSTEMI) (Acute) COVID (Acute) Recurrent UTI (Acute) History of cervical cancer (Acute) Insomnia (Acute) Goals of care, counseling/discussion (Acute) Wheelchair dependent (Chronic) motorized Laceration of ankle, right (Acute) Fracture of toe of right foot (Acute) Cellulitis (Acute) Poorly controlled type 2 diabetes mellitus (Acute) UTI (urinary tract infection) (Acute) Hydronephrosis with renal calculous obstruction (Acute) Calculus of proximal right ureter (Acute) Diabetes (Chronic) Atrial fibrillation (Chronic) Hypokalemia (Chronic) Psychogenic polydipsia (Chronic) UTI (urinary tract infection) (Acute) Weakness (Acute) Adjustment disorder (Acute) Advance directive on file (Acute) Atrial fibrillation with RVR (Acute) Acute diastolic CHF (congestive heart failure) (Acute) Bilateral nephrolithiasis (Chronic) Steroid dependent (Chronic) IDDM (insulin dependent diabetes mellitus) (Chronic) Diarrhea (Acute) UTI (urinary tract infection) (Acute) Dehydration (Acute) Ureterolithiasis (Acute) Hyperglycemia (Acute) Hyperglycemia due to type 1 diabetes mellitus (Acute) Gastrointestinal bleeding (Acute) Palliative care patient (Acute) C. difficile colitis (Acute) Duodenal ulcer (Acute) Medical History Ambulatory dysfunction Atrial fibrillation Diabetes HTN (hypertension) Hx of hyperlipidemia Obesity, morbid, BMI 40.0-49.9 Pulmonary hypertension mild Rheumatoid arteritis Rheumatoid arthritis Surgical History History of cystoscopy History of hysterectomy Hx of cholecystectomy Family History Mother , in her late 60s from endometrial cancer Endometrial cancer Obesity Father , in his early 70s from alcoholic cirrhosis Alcohol abuse Cirrhosis, alcoholic Sister , in her early 70s from cervical cancer Cervical cancer Brother , age 60 from lung cancer Lung cancer Smoker Brother , age 50 from AIDS, history of IVDU AIDS IVDU (intravenous drug user) Brother , age 22 from suicide Suicide Brother , in psychiatric hospital ? COD IVDU (intravenous drug user) Daughter No problems noted. 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, 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, 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, 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 Pets and animals: Yes Pets and animals: cat(s) and dog(s) Do you think of yourself as: straight/heterosexual Current gender identity: female What is your relationship status?: How often do you talk on the phone with friends or family?: twice per week How often do you get together with friends or relatives?: twice per week Panel score (0-1 are the most socially isolated patients): 2 What type of physical activity do you participate in: assisted ambulation and sedentary lifestyle Frequency: does not exercise Special terra needs: No Seatbelt use: always Water heater temp set <120 deg: Yes Working smoke detector in home: Yes Fire extinguisher in home: Yes Firearms in home: Yes Do you feel safe at home: Yes Do you feel safe in your relationship?: Yes Additional Social history: Lives [facility] her second Valeriy [facility] He is also very disabled, on dialysis, requires oxygen. She does not want him to be her health care agent as He will do what he wants, not what I want. She wants to be DNR/DNI. They moved up here from [place] to be near her daughter, Zahida. She also has 2 step-sons in [place] area and 3 more step kids in [place], [place] and [place]. 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 Exam Const General: cooperative, comfortable and no acute distress Orientation: alert and awake HENNC Head: normal to inspection, normocephalic and atraumatic Face and sinus: normal facial exam Mouth: moist mucous membranes Eyes General: appearance normal, both eyes and all related structures Conjunctivae: conjunctivae normal Neck Neck: normal visual inspection, full ROM, trachea midline, supple and nontender Resp Effort & Inspection: normal respiratory effort and able to speak in complete sentences Auscultation: diminished lung sounds bilaterally in the lower lung garcia Cardio Rate: regular rate Rhythm: abnormal rhythm irregularly irregular GI Inspection: obesity Palpation: soft, not firm, no guarding, no pulsatile masses and nontender Auscultation: normal bowel sounds Back/Spine/Pelvis Back: No back tenderness Skin General skin exam: no rashes or lesions noted Neuro General: patient alert, patient awake, moves all extremities and no focal motor deficits Cognition: normal cognition Speech: speech normal Motor: muscle tone normal throughout Sensory Exam: no sensory deficits noted Extrem General: full ROM, capillary refill normal, no calf tenderness and pedal edema bilaterally non-pitting and 1+ (Baseline per patient) Psych Appearance: grossly normal Mental Status: mental status grossly normal Critical Care Time Critical Care Time Critical Care Time: Yes Total Critical Care Time: 45 Attestation: Upon my evaluation, this patient had a high probability of clinically significant, life-threatening deterioration due to their current medical conditions, which required my direct attention, intervention, and personal management. I have personally provided greater than 30 minutes of critical care time exclusive of the time spend on separately billable procedures. Time includes obtaining a history, examining the patient, pulse oximetry, review of laboratory data, radiology results, discussion with consultants, arranging urgent treatment with development of a management plan, evaluation of patient's response to treatment, and monitoring for potential decompensation. Interventions were performed as documented above.
--- NOTE | 2021-09-27 11:15 | DI.RAD_ITS ---
Exam(s) XR PORTABLE CHEST AP EXAM: XR PORTABLE CHEST AP CLINICAL HISTORY: R sided chest pain, covid +. TECHNIQUE: 2D digital imaging was performed. COMPARISON: CR,XR XR CHEST 2V PA LATERAL from 11/14/2019 FINDINGS: Single AP portable view. Cardiomegaly. The mediastinum is not widened. No confluent infiltrates nor pleural effusions. No pulmonary edema. No pneumothorax. Chest leads in place IMPRESSION: No acute pulmonary findings on this single AP portable view of the chest. DATA REPOSITORY: RADIATION DOSE DELIVERED: All CT scans at this facility use at least one of these dose optimization techniques: automated exposure control; mA and/or kV adjustment per patient size (includes targeted e xams where dose is matched to clinical indication); or iterative reconstruction.
[2021-09-27] MEDS: Normal Saline 1,000 ML 125 ML IV (11:40)
[2021-09-27 11:50] LABS: Abs Immature Grans 0.03 10^3/uL (0.0-0.06); Absolute Basophil Count 0.01 10^3/uL (0.0-0.2); Absolute Eosinophil Count 0.08 10^3/uL (0.0-0.7); Absolute Lymphocyte Count 1.09 10^3/uL (1.2-3.4); Absolute Monocyte Count 0.61 10^3/uL (0.1-0.8); Basophils % 0.2; Eosinophils % 1.9; HGB 12.2 g/dL (11.2-15.7); Immature Grans % 0.7; Lymphocytes % 25.8; MCH 29.8 pg (27.0-33.0); MCV 91 fL (80-95); MPV 9.3 fL (8.0-11.0); Monocytes % 14.5; Neutrophils % 56.9; Platelet Count 293 10^3/uL (130-400); RBC 4.09 10^6/uL (3.93-5.22); RDW 13.2 % (11.7-14.6); RDW-SD 43.7 fL; WBC 4.22 10^3/uL (4.4-10.8)
[2021-09-27 12:04] LABS: Lipase 89 U/L (73-393)
[2021-09-27 12:09] LABS: PTT Activated 27.6 sec (21.0-27.5); Prothrombin Time 10.4 sec (9.3-11.0)
[2021-09-27 12:12] LABS: ALT 20 U/L (14-59); AST 26 U/L (15-37); Albumin 2.9 g/dL (3.4-5.0); Alkaline Phosphatase 115 U/L (46-116); Anion Gap 7.1 mmol/L (3-11); BUN 13 mg/dL (7-18); Bilirubin, Total 0.3 mg/dL (0.2-1.0); CO2 29.9 mmol/L (21.0-32.0); CREATININE 1.1 mg/dL (0.55-1.02); Calcium 8.7 mg/dL (8.5-10.1); Chloride 101 mmol/L (98-107); Estimated GFR 48.29 (mL/min/1.73m2); Glucose 185 mg/dL (74-106); Magnesium 1.4 mg/dL (1.8-2.4); NT-proBNP 264 pg/mL (<300); Potassium 3.5 mmol/L (3.5-5.1); Sodium 138 mmol/L (136-145); Total Protein 7.4 g/dL (6.4-8.2)
[2021-09-27 12:13] LABS: Troponin I 723 ng/L (<or=60)
[2021-09-27 12:15] LABS: Influenza A PCR Negative (Negative); Influenza B PCR Negative (Negative); RSV PCR Negative (Negative)
[2021-09-27] MEDS: nitroGLYcerin 0.4 MG TAB ×2 (12:24→12:30)
[2021-09-27] MEDS: MAGNESIUM SULFATE 1 GM/100 ML BAG IVPB (12:25)
[2021-09-27 12:27] LABS: D-Dimer 665 ng/mlFEU (<500)
[2021-09-27 12:46] LABS: COVID-19 PCR Positive (Negative); Source Nasopharynx
[2021-09-27] MEDS: Clopidogrel 300 MG TAB PO ×2 (14:06→16:30)
[2021-09-27 14:45] LABS: Troponin I 8255 ng/L (<or=60)
--- NOTE | 2021-09-27 14:45 | RT.EKG_ITS ---
APPROVED REPORT Exam: Resting ECG Reason for Exam: chest pain Patient Location: E HR:88 bpm ECG Measurements Heart Rate 88 AXIS MT [id number] P [id number] QRSd 92 QRS 24 QT 373 T 57 QTc 453 Conclusion Atrial fibrillation...V-rate 64-120, irreg A-activity Low voltage, extremity and precordial leads...extremity<0.5mV, precordial<1.0mV
[2021-09-27] MEDS: Metoprolol 25 MG TAB PO (16:30)
--- NOTE | 2021-09-27 16:54 | W.PM.DS.N ---
Date of service: 09/27/21 Time of Service: 16:55 DS: Diagnosis Discharge Diagnosis (1) STEMI (ST elevation myocardial infarction): Status: Acute (2) COVID: Status: Acute (3) Poorly controlled type 2 diabetes mellitus: Status: Acute (4) Atrial fibrillation: (5) Pulmonary hypertension: (6) Rheumatoid arthritis: Start date: 09/27/21 Start time: 16:56 Discharge Plan Disposition Patient Disposition: [facility] Condition: Serious Discharge Details Reason For Visit: STEMI, COVID-19 Admit Date/Time: 09/27/21 13:50 Admit Provider: Vish Machuca Attending Provider: Vish Machuca Primary Care Provider: Marleen Warren [facility] Hospital Course: This is a 76-year-old female, palliative care patient, past medical history of diabetes, A. fib, on apixaban, adjustment disorder, renal failure, hypertension, pulmonary hypertension, RA, presenting to the ER via EMS reporting right-sided chest pain with inspiration and a mild dry cough over the past 2 days.? Patient states that her was diagnosed with COVID 2 days ago.? Patient was placed on Paxlovid 2 days ago.? She tells me that her discomfort was a 5 out of 10 but she took 2 full dose aspirin and now has no pain at rest but with deep breathing does have right-sided chest pain 2 or 3 out of 10.? She denies headache, fever, sore throat, shortness of breath, abdominal pain, nausea, vomiting, change in bowel or bladder function, increased pain or swelling in her legs.? She reports baseline swelling in her legs.? Patient tells me that she is taking all of her medications as directed.? Denies history of MT or stents. EGK initially read as low voltage, afib, but no ST changes. Cardilogy fellow at [facility] analyzed the EKG and noted subtle ST elevation and a developing Q wave in lead III. Her troponin increased from 723 to 8255. She continued to be pain free. Vital signs remained stable. She was given a total of 600mg plavix and an aspirin 325mg Heparin drip with bolus given. Transferred to [facility] via air with [facility]. 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 Home Meds and New Rx's Prescriptions: No Action colestipol 1 gram tablet 1 g PO BID ferrous fumarate 325 mg (106 mg iron) tablet 325 mg PO DAILY metformin 500 mg tablet 500 mg PO DAILY nystatin 100,000 unit/gram cream 1 applic topical TID mirtazapine 15 mg tablet 15 mg PO QHS Qty: 30 0RF Rx Instructions: increased dose from 7.5 mg Toujeo SoloStar U-300 Insulin 300 unit/mL (1.5 mL) insulin pen 100 unit subcut DAILY Eliquis 5 mg tablet 2.5 mg PO BID oxycodone 10 mg tablet 20 mg PO DAILY PRN magnesium oxide 400 mg (241.3 mg magnesium) tablet 400 mg PO DAILY diphenhydramine HCl 50 mg capsule 50 mg PO QHS furosemide [Lasix] 20 mg tablet 20 mg PO DAILY metoprolol succinate 200 mg capsule,sprinkle,ER 24hr 200 mg PO DAILY bupropion HCl [Wellbutrin SR] 100 mg tablet sustained-release 12 hr 100 mg PO BID trazodone 50 mg tablet 50 mg PO DAILY multivitamin [Daily Value] 1 EACH tablet 1 ea PO DAILY Victoza 2-Tree 0.6 MG/0.1 ML pen injector 1.8 mg SQ HS melatonin 10 MG capsule 10 mg PO HS mecobalamin (vitamin B12) 1,000 MCG tablet,disintegrating 1,000 mcg Sublingual DAILY prednisone 5 MG tablet 5 mg PO DAILY duloxetine [Cymbalta] 60 MG capsule,delayed release(DR/EC) 60 mg PO DAILY Label Comments: I DO NOT TAKE THAT ANYMORE Livalo 2 MG tablet 1 mg PO DAILY diltiazem HCl 300 mg Capsule,Extended Release 24hr 300 mg PO DAILY Qty: 30 0RF Calcium 600 + D(3) 600 mg calcium- 200 unit Capsule 1 cap PO DAILY coenzyme Q10 100 mg Capsule 100 mg PO DAILY Humalog KwikPen Insulin 200 unit/mL (3 mL) insulin pen 30 unit SUBCUT AC Label Comments: INJECT 30 UNITS UNDER THE SKIN BEFORE EACH MEAL Rx Instructions: BEFORE EACH MEAL vitamin B complex Tablet 1 tab PO DAILY pantoprazole 40 mg Tablet,Delayed Release (Dr/Ec) 40 mg PO BID@0730,2000 Qty: 30 0RF tamsulosin 0.4 mg Capsule 0.4 mg PO DAILY Qty: 14 0RF Saccharomyces boulardii [Florastor] 250 mg capsule 250 mg PO BID Qty: 14 0RF Paxlovid (EUA) 150-100 mg tablet 150 tab PO BID Label Comments: Take 2 tablets by mouth twice daily for 5 days Rx Instructions: take 2 tabs by mouth twice daily prednisone 5 mg tablet 5 mg PO DAILY diltiazem HCl 300 mg capsule,extended release 24hr 300 mg PO DAILY diphenhydramine HCl 50 mg capsule 50 mg PO DAILY Label Comments: Take 1 capsule by mouth every night Discharge Instructions Activity:: Bedrest Diet:: NPO DS: Summary Time Spent with Patient providing and/or coordinating discharge services: Greater than 30 minutes Status at Discharge Functional status at discharge: independent ambulation Overall status at discharge: patient is not back to baseline Mental Status: mental status grossly normal Speech and Movement: speech and movement normal Mood: congruent mood Affect: normal affect Exam Narrative Exam Narrative: Gen: NAD. Pleasant and cooperative. Neck: No JVD HR: Afib. 80's. Resp: No increased WOB Ext: tr edema. Psych: A&O x 3. Affect is bright. Psych Mental Status: mental status grossly normal Speech and Movement: speech and movement normal Mood: congruent mood Affect: normal affect DS: Data Vitals/I&O Vitals and I&O: Vital Signs Temperature 36.8 C 09/27/21 16:02 Temperature Source Skin 09/27/21 16:02 Pulse 80 09/27/21 16:34 Pulse 97 H 09/27/21 16:34 Respiratory Rate 10 L 09/27/21 16:34 Respiratory Effort 09/27/21 11:28 Blood Pressure 96/83 L 09/27/21 16:34 Blood Pressure Mean 86 09/27/21 16:34 Pulse Oximetry 93 09/27/21 16:34 Oxygen Delivery Method Room Air 09/27/21 11:22 Oxygen Flow Rate 0 09/27/21 11:22 Pain Level 1 09/27/21 12:35 Intake & Output 09/26/21 09/27/21 09/27/21 23:59 11:59 23:59 Intake Total 100 / 110 Balance 100 / 110 Weight 113.398 kg Intake: IV 100 / 110 Data Completed and Pending Labs on day of discharge: Labs from last 24 hours 09/27/21 09/27/21 09/27/21 20:00 18:30 16:55 WBC RBC Hgb Hct MCV MCH MCHC RDW Plt Count MPV Immature Gran % Neutrophils % Lymphocytes % Monocytes % Eosinophils % Basophils % Nucleated RBC % Absolute Neutrophils Absolute Lymphocytes Absolute Monocytes Absolute Eosinophils Absolute Basophils PT INR APTT Pending D-Dimer Sodium Potassium Chloride Carbon Dioxide Anion Gap BUN Creatinine Estimated GFR/1.73 m2 Glucose Calcium Magnesium Total Bilirubin AST ALT Alkaline Phosphatase Troponin I Cancelled Cancelled NT-Pro-B Natriuret Pep Total Protein Albumin Lipase COVID-19 Source SARS-CoV-2 (PCR) Influenza Type A (PCR) Influenza Type B (PCR) RSV (PCR) 09/27/21 09/27/21 09/27/21 14:20 11:37 11:37 WBC RBC Hgb Hct MCV MCH MCHC RDW Plt Count MPV Immature Gran % Neutrophils % Lymphocytes % Monocytes % Eosinophils % Basophils % Nucleated RBC % Absolute Neutrophils Absolute Lymphocytes Absolute Monocytes Absolute Eosinophils Absolute Basophils PT 10.4 INR 1.0 APTT 27.6 H D-Dimer 665 H Sodium Potassium Chloride Carbon Dioxide Anion Gap BUN Creatinine Estimated GFR/1.73 m2 Glucose Calcium Magnesium Total Bilirubin AST ALT Alkaline Phosphatase Troponin I 8255 H* NT-Pro-B Natriuret Pep Total Protein Albumin Lipase 89 COVID-19 Source SARS-CoV-2 (PCR) Influenza Type A (PCR) Influenza Type B (PCR) RSV (PCR) 09/27/21 09/27/21 09/27/21 11:37 11:37 11:35 WBC 4.22 L RBC 4.09 Hgb 12.2 Hct 37.0 MCV 91 MCH 29.8 MCHC 33.0 RDW 13.2 Plt Count 293 MPV 9.3 Immature Gran % 0.7 Neutrophils % 56.9 Lymphocytes % 25.8 Monocytes % 14.5 Eosinophils % 1.9 Basophils % 0.2 Nucleated RBC % 0.0 Absolute Neutrophils 2.40 Absolute Lymphocytes 1.09 L Absolute Monocytes 0.61 Absolute Eosinophils 0.08 Absolute Basophils 0.01 PT INR APTT D-Dimer Sodium 138 Potassium 3.5 Chloride 101 Carbon Dioxide 29.9 Anion Gap 7.1 BUN 13 Creatinine 1.1 H Estimated GFR/1.73 m2 48.29 Glucose 185 H Calcium 8.7 Magnesium 1.4 L Total Bilirubin 0.3 AST 26 ALT 20 Alkaline Phosphatase 115 Troponin I 723 H* NT-Pro-B Natriuret Pep 264 Total Protein 7.4 Albumin 2.9 L Lipase COVID-19 Source Nasopharynx SARS-CoV-2 (PCR) Positive A Influenza Type A (PCR) Negative Influenza Type B (PCR) Negative RSV (PCR) Negative PFSH All Active Problems STEMI (ST elevation myocardial infarction) (Acute) Non-ST elevation MT (NSTEMI) (Acute) COVID (Acute) Recurrent UTI (Acute) History of cervical cancer (Acute) Insomnia (Acute) Goals of care, counseling/discussion (Acute) Wheelchair dependent (Chronic) motorized Laceration of ankle, right (Acute) Fracture of toe of right foot (Acute) Cellulitis (Acute) Poorly controlled type 2 diabetes mellitus (Acute) UTI (urinary tract infection) (Acute) Hydronephrosis with renal calculous obstruction (Acute) Calculus of proximal right ureter (Acute) Diabetes (Chronic) Atrial fibrillation (Chronic) Hypokalemia (Chronic) Psychogenic polydipsia (Chronic) UTI (urinary tract infection) (Acute) Weakness (Acute) Adjustment disorder (Acute) Advance directive on file (Acute) Atrial fibrillation with RVR (Acute) Acute diastolic CHF (congestive heart failure) (Acute) Bilateral nephrolithiasis (Chronic) Steroid dependent (Chronic) IDDM (insulin dependent diabetes mellitus) (Chronic) Diarrhea (Acute) UTI (urinary tract infection) (Acute) Dehydration (Acute) Ureterolithiasis (Acute) Hyperglycemia (Acute) Hyperglycemia due to type 1 diabetes mellitus (Acute) Gastrointestinal bleeding (Acute) Palliative care patient (Acute) C. difficile colitis (Acute) Duodenal ulcer (Acute) Medical History Ambulatory dysfunction Atrial fibrillation Diabetes HTN (hypertension) Hx of hyperlipidemia Obesity, morbid, BMI 40.0-49.9 Pulmonary hypertension mild Rheumatoid arteritis Rheumatoid arthritis Surgical History History of cystoscopy History of hysterectomy Hx of cholecystectomy Family History Mother , in her late 60s from endometrial cancer Endometrial cancer Obesity Father , in his early 70s from alcoholic cirrhosis Alcohol abuse Cirrhosis, alcoholic Sister , in her early 70s from cervical cancer Cervical cancer Brother , age 60 from lung cancer Lung cancer Smoker Brother , age 50 from AIDS, history of IVDU AIDS IVDU (intravenous drug user) Brother , age 22 from suicide Suicide Brother , in psychiatric hospital ? COD IVDU (intravenous drug user) Daughter No problems noted. 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, 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, 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 Pets and animals: Yes Pets and animals: cat(s) and dog(s) Do you think of yourself as: straight/heterosexual Current gender identity: female What is your relationship status?: How often do you talk on the phone with friends or family?: twice per week How often do you get together with friends or relatives?: twice per week Panel score (0-1 are the most socially isolated patients): 2 What type of physical activity do you participate in: assisted ambulation and sedentary lifestyle Frequency: does not exercise Special terra needs: No Seatbelt use: always Water heater temp set <120 deg: Yes Working smoke detector in home: Yes Fire extinguisher in home: Yes Firearms in home: Yes Do you feel safe at home: Yes Do you feel safe in your relationship?: Yes Additional Social history: Lives with her second Valeriy in [facility], handicapped [facility]. He is also very disabled, on dialysis, requires oxygen. She does not want him to be her health care agent as He will do what he wants, not what I want. She wants to be DNR/DNI. They moved up here from [place] to be near her daughter, Zahida. She also has 2 step-sons in [place] area and 3 more step kids in [place], [place] and [place]. 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
[2021-09-27] MEDS: nitroGLYcerin in D5W 50 MG/250 ML BTL IV (17:00)
--- NOTE | 2021-09-27 17:09 | W.PM.HP.N ---
Date of service: 09/27/21 Time of Service: 17:33 Assessment and Plan Assessment and plan (1) Non-ST elevation [place] (NSTEMI): Status: Acute Assessment and plan: As she was being transferred from the ED, [facility] storage battery inspector and SECOND HELPER contacted me. The Fellow had reviewed her EKGs and because of the low voltage, a very subtle ST elevation was not previously noted. Also, a subtle Q-wave also noted in lead III. Therefore, she was given another 300mg plavix and a 25mg dose of metoprolol tartrate. She was then transported via air to [facility] with direct admission to the microbiology laboratory manager. (2) COVID: Status: Acute Assessment and plan: Not hypoxic. Had been prescribed Paxlovid 2 days ago and has been taking as prescribed. (3) Poorly controlled type 2 diabetes mellitus: Status: Acute Assessment and plan: Transferred to [facility] before any plan initiated. (4) Atrial fibrillation: Assessment and plan: On Eliquis and diltiazem. No medications administered before transferring to [facility]> History of Present Illness History of Present Illness Chief Complaint: Right sided chest pain and cough. Narrative: This is a 76-year-old female, palliative care patient, past medical history of diabetes, A. fib, on apixaban, adjustment disorder, renal failure, hypertension, pulmonary hypertension, RA, presenting to the ER via EMS reporting right-sided chest pain with inspiration and a mild dry cough over the past 2 days.? Patient states that her was diagnosed with COVID 2 days ago.? Patient was placed on Paxlovid 2 days ago.? She tells me that her discomfort was a 5 out of 10 but she took 2 full dose aspirin and now has no pain at rest but with deep breathing does have right-sided chest pain 2 or 3 out of 10.? She denies headache, fever, sore throat, shortness of breath, abdominal pain, nausea, vomiting, change in bowel or bladder function, increased pain or swelling in her legs.? She reports baseline swelling in her legs.? Patient tells me that she is taking all of her medications as directed.? Denies history of [place] or stents. Nitorglycerine given and her pain improved. Troponin elevated at 723. WBC count normal. Covid-19 positive. She was not hypoxic and vital signs were stable. ED physician conferred with cardiology at [facility] who recommended plavix 300mg po, ASA 325 mg (already given) and a heparin drip. The plan would be transfer to [facility] the following day, sooner should her condition warrant. Review of Systems All systems reviewed & are unremarkable except as noted in HPI and below PFSH All Active Problems STEMI (ST elevation myocardial infarction) (Acute) Non-ST elevation [place] (NSTEMI) (Acute) COVID (Acute) Recurrent UTI (Acute) History of cervical cancer (Acute) Insomnia (Acute) Goals of care, counseling/discussion (Acute) Wheelchair dependent (Chronic) motorized Laceration of ankle, right (Acute) Fracture of toe of right foot (Acute) Cellulitis (Acute) Poorly controlled type 2 diabetes mellitus (Acute) UTI (urinary tract infection) (Acute) Hydronephrosis with renal calculous obstruction (Acute) Calculus of proximal right ureter (Acute) Diabetes (Chronic) Atrial fibrillation (Chronic) Hypokalemia (Chronic) Psychogenic polydipsia (Chronic) UTI (urinary tract infection) (Acute) Weakness (Acute) Adjustment disorder (Acute) Advance directive on file (Acute) Atrial fibrillation with RVR (Acute) Acute diastolic CHF (congestive heart failure) (Acute) Bilateral nephrolithiasis (Chronic) Steroid dependent (Chronic) IDDM (insulin dependent diabetes mellitus) (Chronic) Diarrhea (Acute) UTI (urinary tract infection) (Acute) Dehydration (Acute) Ureterolithiasis (Acute) Hyperglycemia (Acute) Hyperglycemia due to type 1 diabetes mellitus (Acute) Gastrointestinal bleeding (Acute) Palliative care patient (Acute) C. difficile colitis (Acute) Duodenal ulcer (Acute) Medical History Ambulatory dysfunction Atrial fibrillation Diabetes HTN (hypertension) Hx of hyperlipidemia Obesity, morbid, BMI 40.0-49.9 Pulmonary hypertension mild Rheumatoid arteritis Rheumatoid arthritis Surgical History History of cystoscopy History of hysterectomy Hx of cholecystectomy Family History Mother , in her late 60s from endometrial cancer Endometrial cancer Obesity Father , in his early 70s from alcoholic cirrhosis Alcohol abuse Cirrhosis, alcoholic Sister , in her early 70s from cervical cancer Cervical cancer Brother , age 60 from lung cancer Lung cancer Smoker Brother , age 50 from AIDS, history of IVDU AIDS IVDU (intravenous drug user) Brother , age 22 from suicide Suicide Brother , in psychiatric hospital ? COD IVDU (intravenous drug user) Daughter No problems noted. 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, 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, 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 Pets and animals: Yes Pets and animals: cat(s) and dog(s) Do you think of yourself as: straight/heterosexual Current gender identity: female What is your relationship status?: How often do you talk on the phone with friends or family?: twice per week How often do you get together with friends or relatives?: twice per week Panel score (0-1 are the most socially isolated patients): 2 What type of physical activity do you participate in: assisted ambulation and sedentary lifestyle Frequency: does not exercise Special terra needs: No Seatbelt use: always Water heater temp set <120 deg: Yes Working smoke detector in home: Yes Fire extinguisher in home: Yes Firearms in home: Yes Do you feel safe at home: Yes Do you feel safe in your relationship?: Yes Additional Social history: Lives [facility] her second Valeriy [facility] He is also very disabled, on dialysis, requires oxygen. She does not want him to be her health care agent as He will do what he wants, not what I want. She wants to be DNR/DNI. They moved up here from [place] to be near her daughter, Zahida. She also has 2 step-sons in [place] area and 3 more step kids in [place], [place] and [place]. 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 Meds Allergies and Home Medications Allergies Allergy/AdvReac Type Severity Reaction Status Date / Time atorvastatin AdvReac Intermediate leg cramps Unverified 09/27/21 11:26 lisinopril AdvReac Intermediate cough Unverified 09/27/21 11:26 Home Medications Medication Instructions Recorded Confirmed Type duloxetine 60 mg capsule,delayed 60 mg PO DAILY 07/21/13 09/27/21 History release (Cymbalta) pitavastatin calcium 2 mg tablet 1 mg PO DAILY 07/21/13 09/27/21 History (Livalo) prednisone 5 mg tablet 5 mg PO DAILY 07/21/13 12/01/20 History liraglutide 0.6 mg/0.1 mL (18 mg/3 1.8 mg SQ HS 12/23/16 09/27/21 History mL) subcutaneous pen injector (Atmailza 2-Tree) mecobalamin (vitamin B12) 1,000 1,000 mcg sublingual DAILY 12/23/16 12/01/20 History mcg disintegrating tablet,sublingual melatonin 10 mg capsule 10 mg PO HS 12/23/16 09/27/21 History multivitamin (Daily Value tablet) 1 ea PO DAILY 12/23/16 09/27/21 History diltiazem HCl 300 mg 300 mg PO DAILY #30 caps 10/10/18 12/01/20 Rx capsule,extended release 24 hr calcium carbonate 600 mg-vitamin 1 cap PO DAILY 11/09/19 12/01/20 History D3 5 mcg (200 unit) capsule (Calcium 600 + D(3)) coenzyme Q10 100 mg capsule 100 mg PO DAILY 11/09/19 12/01/20 History insulin lispro 200 unit/mL (3 mL) 30 unit subcut AC 11/09/19 12/01/20 History subcutaneous pen (Humalog KwikPen U-200 Insulin) vitamin B complex 1 tab PO DAILY 11/09/19 09/27/21 History pantoprazole 40 mg tablet,delayed 40 mg PO BID@07,1999 #30 tabs 11/14/19 09/27/21 Rx release tamsulosin 0.4 mg capsule 0.4 mg PO DAILY #14 caps 03/18/20 09/27/21 Rx Saccharomyces boulardii 250 mg 250 mg PO BID #14 caps 10/16/20 12/01/20 Rx capsule (Florastor) colestipol 1 gram tablet 1 g PO BID 11/28/20 09/27/21 History ferrous fumarate 325 mg (106 mg 325 mg PO DAILY 11/28/20 12/01/20 History iron) tablet metformin 500 mg tablet 500 mg PO DAILY 11/28/20 09/27/21 History nystatin 100,000 unit/gram topical 1 applic topical TID 11/28/20 09/27/21 History cream mirtazapine 15 mg tablet 15 mg PO QHS #30 tabs 12/01/20 12/01/20 Rx apixaban 5 mg tablet (Eliquis) 2.5 mg PO BID 07/23/21 09/27/21 History bupropion HCl 100 mg tablet,12 hr 100 mg PO BID 07/23/21 09/27/21 History sustained-release (Wellbutrin SR) diphenhydramine HCl 50 mg capsule 50 mg PO QHS 07/23/21 History furosemide 20 mg tablet (Lasix) 20 mg PO DAILY 07/23/21 09/27/21 History insulin glargine U-300 conc 300 100 unit subcut DAILY 07/23/21 09/27/21 History unit/mL (1.5 mL) subcutaneous pen (Toujeo SoloStar U-300 Insulin) magnesium oxide 400 mg (241.3 mg 400 mg PO DAILY 07/23/21 09/27/21 History magnesium) tablet metoprolol succinate 200 mg 200 mg PO DAILY 07/23/21 09/27/21 History capsule sprinkle, ext. release 24 hr oxycodone 10 mg tablet 20 mg PO DAILY PRN 07/23/21 09/27/21 History trazodone 50 mg tablet 50 mg PO DAILY 07/23/21 09/27/21 History diltiazem HCl 300 mg 300 mg PO DAILY 09/27/21 09/27/21 History capsule,extended release 24 hr diphenhydramine HCl 50 mg capsule 50 mg PO DAILY 09/27/21 09/27/21 History nirmatrelvir 150 mg-ritonavir 100 150 tab PO BID 09/27/21 09/27/21 History mg tablet (EUA) (Paxlovid) prednisone 5 mg tablet 5 mg PO DAILY 09/27/21 09/27/21 History Exam Narrative Exam Narrative: Gen: NAD. Pleasant and cooperative. Neck: No JVD HR: Afib. 80's. Resp: No increased WOB Ext: tr edema. Psych: A&O x 3. Affect is bright. Psych Mental Status: mental status grossly normal Speech and Movement: speech and movement normal Mood: congruent mood Affect: normal affect Results Labs Result diagrams: 09/27/21 11:37 09/27/21 11:37 Labs: Laboratory Results - last 24 hr 09/27/21 09/27/21 09/27/21 11:35 11:37 11:37 WBC 4.22 L RBC 4.09 Hgb 12.2 Hct 37.0 MCV 91 MCH 29.8 MCHC 33.0 RDW 13.2 Plt Count 293 MPV 9.3 Immature Gran % 0.7 Neutrophils % 56.9 Lymphocytes % 25.8 Monocytes % 14.5 Eosinophils % 1.9 Basophils % 0.2 Nucleated RBC % 0.0 Absolute Neutrophils 2.40 Absolute Lymphocytes 1.09 L Absolute Monocytes 0.61 Absolute Eosinophils 0.08 Absolute Basophils 0.01 PT INR APTT D-Dimer Sodium 138 Potassium 3.5 Chloride 101 Carbon Dioxide 29.9 Anion Gap 7.1 BUN 13 Creatinine 1.1 H Estimated GFR/1.73 m2 48.29 Glucose 185 H Calcium 8.7 Magnesium 1.4 L Total Bilirubin 0.3 AST 26 ALT 20 Alkaline Phosphatase 115 Troponin I 723 H* NT-Pro-B Natriuret Pep 264 Total Protein 7.4 Albumin 2.9 L Lipase COVID-19 Source Nasopharynx SARS-CoV-2 (PCR) Positive A Influenza Type A (PCR) Negative Influenza Type B (PCR) Negative RSV (PCR) Negative 09/27/21 09/27/21 09/27/21 11:37 11:37 14:20 WBC RBC Hgb Hct MCV MCH MCHC RDW Plt Count MPV Immature Gran % Neutrophils % Lymphocytes % Monocytes % Eosinophils % Basophils % Nucleated RBC % Absolute Neutrophils Absolute Lymphocytes Absolute Monocytes Absolute Eosinophils Absolute Basophils PT 10.4 INR 1.0 APTT 27.6 H D-Dimer 665 H Sodium Potassium Chloride Carbon Dioxide Anion Gap BUN Creatinine Estimated GFR/1.73 m2 Glucose Calcium Magnesium Total Bilirubin AST ALT Alkaline Phosphatase Troponin I 8255 H* NT-Pro-B Natriuret Pep Total Protein Albumin Lipase 89 COVID-19 Source SARS-CoV-2 (PCR) Influenza Type A (PCR) Influenza Type B (PCR) RSV (PCR) 09/27/21 09/27/21 16:55 18:30 WBC RBC Hgb Hct MCV MCH MCHC RDW Plt Count MPV Immature Gran % Neutrophils % Lymphocytes % Monocytes % Eosinophils % Basophils % Nucleated RBC % Absolute Neutrophils Absolute Lymphocytes Absolute Monocytes Absolute Eosinophils Absolute Basophils PT INR APTT D-Dimer Sodium Potassium Chloride Carbon Dioxide Anion Gap BUN Creatinine Estimated GFR/1.73 m2 Glucose Calcium Magnesium Total Bilirubin AST ALT Alkaline Phosphatase Troponin I Cancelled Cancelled NT-Pro-B Natriuret Pep Total Protein Albumin Lipase COVID-19 Source SARS-CoV-2 (PCR) Influenza Type A (PCR) Influenza Type B (PCR) RSV (PCR) Last Vital Signs Temp 36.8 C 09/27/21 16:02 Pulse 80 09/27/21 16:34 Resp 10 L 09/27/21 16:34 BP 96/83 L 09/27/21 16:34 Pulse Ox 93 09/27/21 16:34
== END 2021-09-27 17:20 | disposition short-term general hospital (02) | DRG 280 ==
LOC: ER 14:27 → ICU 16:15
PROVIDERS: Admitting Provider Family Medicine; Emergency Provider Physician Assistant; PCP Family Medicine; Visit Provider Family Medicine
DX: I21.29 ST elevation (STEMI) myocardial infarction involving other sites (principal); U07.1 COVID-19; N13.2 Hydronephrosis with renal and ureteral calculous obstruction; E11.65 Type 2 diabetes mellitus with hyperglycemia; D63.8 Anemia in other chronic diseases classified elsewhere; I48.91 Unspecified atrial fibrillation; F43.20 Adjustment disorder, unspecified; N19 Unspecified kidney failure; R53.1 Weakness; K26.9 Duodenal ulcer, unspecified as acute or chronic, without hemorrhage or perforation; I27.20 Pulmonary hypertension, unspecified; I10 Essential (primary) hypertension; E66.9 Obesity, unspecified; M06.9 Rheumatoid arthritis, unspecified; R60.0 Localized edema; G47.00 Insomnia, unspecified; Z79.52 Long term (current) use of systemic steroids; Z79.4 Long term (current) use of insulin; Z79.01 Long term (current) use of anticoagulants; Z99.3 Dependence on wheelchair; Z85.41 Personal history of malignant neoplasm of cervix uteri; Z68.39 Body mass index [BMI] 39.0-39.9, adult
CPT/HCPCS: 36415; 80053; 83690; 87637; 93005; 96361; 96365; 96366; 96367; 96376; 99291; 71045; 83735; 83880; 84484; 85025; 85379; 85610; 85730; 93010; 99223; J3475

== ENCOUNTER 2021-11-08 13:35 | Outpatient (REF) | payer MEDICARE, MEDICAID, SELFPAY ==
[2021-11-08 14:54] LABS: Bilirubin Negative (Negative); Blood Moderate (Negative); Clarity Cloudy (Clear); Glucose Negative (Negative); Ketones Negative (Negative); Leukocyte Esterase Large (Negative); Nitrite Negative (Negative); Specific Gravity >= 1.030 (1.005-1.025); Urobilinogen 0.2 EU/dL (Up TO 0.2); pH 5.5 (5-8)
[2021-11-08 15:04] LABS: COMMENT (LAB VIEW ONLY) 91.37 mg/dL; Microalb ug/mg Crea 104.7 ug/mg Cr
[2021-11-08 15:12] LABS: WBC >50 HPF (0-5)
[2021-11-08 15:13] LABS: Bacteria Few HPF (Negative); C & S Indicated? Yes; Casts 0-2 Hyaline LPF (Negative); Crystals Negative HPF (Negative); Epithelial Cells Rare HPF (Negative); Mucus Negative (Negative)
[2021-11-08 18:07] LABS: HGB 10.5 g/dL (11.2-15.7); MCH 28.6 pg (27.0-33.0); MCHC 30.9 % (32.0-36.0); MCV 93 fL (80-95); MPV 9.6 fL (8.0-11.0); Platelet Count 395 10^3/uL (130-400); RBC 3.67 10^6/uL (3.93-5.22); RDW 14.2 % (11.7-14.6); RDW-SD 48.4 fL; WBC 8.69 10^3/uL (4.4-10.8)
[2021-11-08 18:29] LABS: Anion Gap 7.4 mmol/L (3-11); BUN 14 mg/dL (7-18); CO2 29.6 mmol/L (21.0-32.0); CREATININE 1.2 mg/dL (0.55-1.02); Calcium 8.5 mg/dL (8.5-10.1); Calculated LDL 64 mg/dL (<100); Chloride 98 mmol/L (98-107); Cholesterol 148 mg/dL (<200); Estimated GFR 43.68 (mL/min/1.73m2); Glucose 326 mg/dL (74-106); HDL Cholesterol 52 mg/dL (40-60); Potassium 3.5 mmol/L (3.5-5.1); Sodium 135 mmol/L (136-145); Triglyceride 161 mg/dL (<150)
[2021-11-08 18:43] LABS: Hemoglobin A1C 8.6 % (<5.7)
== END 2021-11-08 13:36 | disposition home or self-care (01) ==
LOC: NCHCN 13:35
PROVIDERS: PCP Family Medicine; Visit Provider Family Medicine
DX: E11.65 Type 2 diabetes mellitus with hyperglycemia (principal); I10 Essential (primary) hypertension; E78.5 Hyperlipidemia, unspecified; R60.0 Localized edema; N39.0 Urinary tract infection, site not specified
CPT/HCPCS: 80048; 80061; 85027; 87077; 81003; 81015; 82043; 82570; 83036; 87086; 87186

== ENCOUNTER 2021-12-13 14:18 | Outpatient (REF) | payer MEDICARE, MEDICAID, SELFPAY ==
[2021-12-13 16:56] LABS: HCT 36.8 % (36.0-46.0); HGB 11.4 g/dL (11.2-15.7); MCH 27.2 pg (27.0-33.0); MCV 88 fL (80-95); Platelet Count 386 10^3/uL (130-400); RBC 4.19 10^6/uL (3.93-5.22); RDW 15.5 % (11.7-14.6); WBC 7.21 10^3/uL (4.4-10.8)
[2021-12-13 17:09] LABS: Total Iron Binding Capacity 276 ug/dL (250-450)
[2021-12-13 17:21] LABS: Hemoglobin A1C 8.4 % (<5.7)
[2021-12-13 17:24] LABS: Ferritin 27 ng/mL (8-252)
[2021-12-13 18:51] LABS: Bilirubin Negative (Negative); Blood Small (Negative); Clarity Sl Cloudy (Clear); Glucose Negative (Negative); Ketones Negative (Negative); Leukocyte Esterase Moderate (Negative); Nitrite Negative (Negative); Urobilinogen 0.2 EU/dL (Up TO 0.2); pH 5.5 (5-8)
[2021-12-13 18:55] LABS: Bacteria Many HPF (Negative); C & S Indicated? Yes; Casts Negative LPF (Negative); Crystals Negative HPF (Negative); Epithelial Cells Few HPF (Negative); Mucus Negative (Negative); WBC >50 HPF (0-5)
== END 2021-12-13 14:19 | disposition home or self-care (01) ==
LOC: NCHCN 14:18
PROVIDERS: PCP Family Medicine; Visit Provider Family Medicine
DX: E11.65 Type 2 diabetes mellitus with hyperglycemia (principal); D64.9 Anemia, unspecified; N39.0 Urinary tract infection, site not specified
CPT/HCPCS: 85027; 81003; 81015; 82728; 83036; 83550; 87086

== ENCOUNTER 2022-02-04 08:31 | Emergency (ER) | payer MEDICARE, MEDICAID, SELFPAY ==
--- NOTE | 2022-02-04 08:30 | DI.CT_ITS ---
Exam(s) CT CHEST/ABD/PEL WO EXAM: CT CHEST/ABD/PEL WO CLINICAL HISTORY: fall from wheelchair, struck head. TECHNIQUE: Imaging Protocol: Axial computed tomography images with coronal and sagittal reformatted images were created and reviewed CONTRAST MATERIAL: Intravenous: Noncontrast Oral: no COMPARISON: CT CT RENAL COLIC WO from 09/07/2021 FINDINGS: CHEST: Exam is limited by respiratory motion. Tracheobronchial tree: Patent where visualized. Mediastinum and Clau: No dominant adenopathy or fluid collection. Pulmonary parenchyma: No consolidation or dominant measurable mass. Pleura: No effusion or pneumothorax. Lymph nodes: Within normal limits. Aorta: Thoracic portion non-dilated. Heart: Normal size. Mild coronary artery calcifications. Bones: No evidence of fracture. No lytic or blastic lesions. ABDOMEN: Liver: Normal density. No measurable mass. Gallbladder and biliary tract: Status post cholecystectomy. No radiodense calculus or dilation. Pancreas: Normal density, no abnormal calcifications or inflammatory process. Spleen: Normal. Kidneys: Normal size, contour and axis. Stable appearance of moderate right hydronephrosis secondary to stones in the distal ureter. A stent is again noted in the distal ureter and bladder, below the l evel of the stones. Similar position to prior exam. No masses seen. Adrenal glands: No masses seen. Aorta: Abdominal portion non-dilated. Lymph nodes: Within normal limits. Soft tissues: Unremarkable. PELVIS: Bladder: Symmetric distention, no gross wall thickening. Bowel: No obstruction or bowel wall thickening. Peritoneal cavity: No ascites, collection or mesenteric inflammatory response. Bones: Degenerative changes. No evidence of fracture. Unremarkable for age.. Reproductive organs: Status post hysterectomy. IMPRESSION: No acute abnormality in the chest abdomen or pelvis.. Stable appearance of moderate right hydronephrosis with several distal ureteral stones. Distal urete ral stent is noted below the level of the stones. RADIATION DOSE DELIVERED: 1,763.04mGy.cm Total DLP DATA REPOSITORY: All CT scans at this facility are submitted to the National Radiology Data Registry (NRDR) Dose Index Registry (DIR) with the [employer] ([employer]). RADIATION OPTIMIZATION: All CT scans at this facility use at least one of these dose optimization te chniques: automated exposure control; mA and/or kV adjustment per patient size (includes targeted exa ms where dose is matched to clinical indication); or iterative reconstruction.
--- NOTE | 2022-02-04 08:30 | DI.CT_ITS ---
Exam(s) CT HEAD CERVICAL SPINE WO EXAM: CT HEAD CERVICAL SPINE WO CLINICAL HISTORY: fall from wheelchair, struck head. TECHNIQUE: Imaging Protocol: Axial computed tomography images with coronal and sagittal reformatted images were created and reviewed COMPARISON: CT CT HEAD CERVICAL SPINE WO from 03/07/2020 FINDINGS: Head CT Ventricles and Extra axial spaces: Normal in size and morphology for the patient's age. Hemorrhage: None. Cerebral parenchyma: Mild atrophy. Midline shift: None. Brainstem/Cerebellum: Normal. Calvarium: Normal. Visualized Paranasal sinuses/Mastoids: Clear. Soft tissues: Large scalp laceration near the vertex and left superior frontal region. Cervical Spine CT BONES: Vertebral body heights are maintained. Alignment is normal. There is no evidence of acute frac ture. Degenerative disc changes and facet degenerative changes are seen . SOFT TISSUES: No paraspinal hematoma. The airway appears intact. No pneumothorax is seen at the lung apices. IMPRESSION: Head CT: Large scalp laceration. No acute intracranial abnormality or skull fracture. C-spine CT: Degenerative changes, no acute abnormality. Results of this exam have been verbally communicated with the emergency department provider. RADIATION DOSE DELIVERED: 1,793.22mGy.cm Total DLP DATA REPOSITORY: All CT scans at this facility are submitted to the National Radiology Data Registry (NRDR) Dose Index Registry (DIR) with the [employer] ([employer]). RADIATION OPTIMIZATION: All CT scans at this facility use at least one of these dose optimization te chniques: automated exposure control; mA and/or kV adjustment per patient size (includes targeted exa ms where dose is matched to clinical indication); or iterative reconstruction.
[2022-02-04 08:38] VITALS: BP 124/79; PULSE 83; RESP 16; TEMP 36.8; O2SAT 96
--- NOTE | 2022-02-04 08:45 | RT.EKG_ITS ---
APPROVED REPORT Exam: Resting ECG Reason for Exam: unwitnessed fall Patient Location: E HR:75 bpm ECG Measurements Heart Rate 75 AXIS MS 169 P 0 QRSd 105 QRS 22 QT 461 T -3 QTc 510 Conclusion Sinus rhythm...normal P axis, V-rate 60- 99 Ventricular bigeminy...bigeminy string>4 w/ V complexes Prolonged QT interval...QTc >500mS. Sinus. PVCs. No STEMI. I have reviewed and interpreted ECG and agree with software generated interpretation.
--- NOTE | 2022-02-04 08:45 | W.ED.GENAD ---
Discharge Plan Disposition Patient Disposition: HOME Condition: Stable Discharge Details Clinical Impression: Complex laceration of scalp, Head injury, Concussion, Acute UTI Primary Care Provider: Marleen Warren ED Provider: Katherine Cm Home Meds and New Rx's Prescriptions: Continued colestipol 1 gram tablet 1 g PO BID ferrous fumarate 325 mg (106 mg iron) tablet 325 mg PO DAILY metformin 500 mg tablet 500 mg PO DAILY nystatin 100,000 unit/gram cream 1 applic topical TID mirtazapine 15 mg tablet 15 mg PO QHS Qty: 30 0RF Rx Instructions: increased dose from 7.5 mg Toujeo SoloStar U-300 Insulin 300 unit/mL (1.5 mL) insulin pen 100 unit subcut DAILY Eliquis 5 mg tablet 2.5 mg PO BID oxycodone 10 mg tablet 20 mg PO DAILY PRN magnesium oxide 400 mg (241.3 mg magnesium) tablet 400 mg PO DAILY diphenhydramine HCl 50 mg capsule 50 mg PO QHS furosemide [Lasix] 20 mg tablet 20 mg PO DAILY metoprolol succinate 200 mg capsule,sprinkle,ER 24hr 200 mg PO DAILY bupropion HCl [Wellbutrin SR] 100 mg tablet sustained-release 12 hr 100 mg PO BID trazodone 50 mg tablet 50 mg PO DAILY multivitamin [Daily Value] 1 EACH tablet 1 ea PO DAILY Victoza 2-Tree 0.6 MG/0.1 ML pen injector 1.8 mg SQ HS melatonin 10 MG capsule 10 mg PO HS mecobalamin (vitamin B12) 1,000 MCG tablet,disintegrating 1,000 mcg Sublingual DAILY prednisone 5 MG tablet 5 mg PO DAILY duloxetine [Cymbalta] 60 MG capsule,delayed release(DR/EC) 60 mg PO DAILY Label Comments: I DO NOT TAKE THAT ANYMORE Livalo 2 MG tablet 1 mg PO DAILY diltiazem HCl 300 mg Capsule,Extended Release 24hr 300 mg PO DAILY Qty: 30 0RF Calcium 600 + D(3) 600 mg calcium- 200 unit Capsule 1 cap PO DAILY coenzyme Q10 100 mg Capsule 100 mg PO DAILY Humalog KwikPen Insulin 200 unit/mL (3 mL) insulin pen 30 unit SUBCUT AC Label Comments: INJECT 30 UNITS UNDER THE SKIN BEFORE EACH MEAL Rx Instructions: BEFORE EACH MEAL vitamin B complex Tablet 1 tab PO DAILY pantoprazole 40 mg Tablet,Delayed Release (Dr/Ec) 40 mg PO BID@ Qty: 30 0RF tamsulosin 0.4 mg Capsule 0.4 mg PO DAILY Qty: 14 0RF Saccharomyces boulardii [Florastor] 250 mg capsule 250 mg PO BID Qty: 14 0RF Paxlovid (EUA) 150-100 mg tablet 150 tab PO BID Label Comments: Take 2 tablets by mouth twice daily for 5 days Rx Instructions: take 2 tabs by mouth twice daily prednisone 5 mg tablet 5 mg PO DAILY diltiazem HCl 300 mg capsule,extended release 24hr 300 mg PO DAILY diphenhydramine HCl 50 mg capsule 50 mg PO DAILY Label Comments: Take 1 capsule by mouth every night Discharge Instructions Instructions: Urinary Tract Infection in Women (ED), Concussion (ED), Head Injury (ED) Additional Instructions: As we discussed, I am stilll unclear why you fell. This may be associated with mechanical fall, such as your wheelchair getting caught and falling over. Alternatively, this could be associated with your UTI. This does seem to be a chronic issue but I would like to have you take antibiotics once again. Please encourage hydration. You may use Tylenol as needed to help with pain in your head. Please allow for brain rest and try to avoid prolonged screen time since this may worsen your headache. You were lazara will need to be removed in 1 week. Please return for reevaluation and staple removal in 1 week. If you develop fever/chills, increased pain, confusion, weakness, visual changes or other new/worsening symptoms to seek care urgently once again. Otherwise, please follow-up with primary care in 1 week for reevaluation. Referrals: Marleen Warren MD [Primary Care Provider] - Discharge Data Discharge Date/Time-TO BE ENTERED AT DEPARTURE: 02/04/22 14:40 Medical Decision Making Patient is a pleasant 76-year-old female presenting today with chief complaint of head injury. Patient brought in via EMS. Patient does not remember the events. She reports that secondary to rheumatoid arthritis, she is bound to an electric wheelchair. found her down in the living room after apparently hitting her head against a coffee table when her wheelchair overturned. Patient does not remember the events. He reported to EMS that patient often wakes at night to use the restroom and is able to get in and out of her wheelchair and assisted. Unknown amount of time down. Per EMS, patient has a large laceration to the top of her head. Has been alert and oriented, hemodynamically stable. Noted to be in atrial fibrillation which is baseline per patient and . Patient denies pain elsewhere. C-spine was clear but as the patient was slightly agitated and acting unusual per the , but not comfortable clearing her C-spine and c-collar remains in place. Past medical history significant for atrial fibrillation, deep diabetes, hypertension, hyperlipidemia, morbid obesity, pulmonary hypertension, rheumatoid arthritis, STEMI. Patient is on apixaban. On exam, patient appears nontoxic. Breathing is nonlabored, no pain with palpation about the chest. Lungs are clear. She has no abdominal tenderness. Has a 6 inch laceration with some retraction of the superior aspect of her scalp. No active bleeding. Dressing reapplied. The patient has been altered, I do feel that it would be appropriate to move forward with CT currently prior to closing the wound and she is not actively bleeding and I do not want to delay imaging on this patient given her anticoagulation and no evidence of significant trauma. She has a small abrasion to the left elbow. Otherwise, do not note any evidence of trauma elsewhere. She has no pain with range of motion of the left arm. Patient is alert and oriented at this time. Also considering causes of the fall. While this does seem to be mechanical since the wheelchair also was close to her side, considering other causes of the fall but she syncope. She does have a history of STEMI, will obtain troponin, EKG. Will obtain an immediate glucose. Also considered rhabdo at unknown time down and will assess for CK Patient glucose is low at 78.This may be some of the patient's agitation, typically her glucose is significantly higher than this. We will give the 150 cc of D5 normal. Labs reviewed. No leukocytosis. Coags within normal limits. Creatinine elevated at 1.4 which appears to be baseline for the patient. Magnesium slightly low at 1.6, will replenish this here. Initial troponin within normal limits, plan to repeat. Urinalysis is elevated specific gravity, moderate blood which appears baseline for the patient. Will recommend that she discuss this further with her PCP. She does have small leukocyte esterase as well as WBC and bacteria. Concern for potential UTI and will begin treating as such. Did review previous culture and sensitivities. CK within normal limits. Spoke with radiologist. They note no intracranial hemorrhage but did note the large laceration on the scalp. She has degenerative changes in the C-spine but otherwise no acute fracture. Discussed with the patient. She is much more calm and appropriate. Her sugar has come up now to 178. Patient I discussed wound care. We discussed closure options. In particular, we did discuss [place] and that this needs to be closed and plan to place lazara over this. We discussed risk/benefits, alternatives and expected plan of care. Patient voiced understanding and wished to proceed with closure. I did discuss the mild hyperglycemia with the patient. She denies any new medications. Rather, she believes associated with not having any p.o. intake thus far today. Contacted by radiologist. They advised that there is no acute pathology in chest abdomen pelvis. Please see procedure note. This was performed using standard sterile technique. Patient tolerated procedure well. Wound is explored to base in a bloodless field with no foreign body or debris noted. Galea was closed and then skin was closed over this with lazara. Patient did have good hemostasis, alignment of wound edges. She is able to raise frontalis well. Unclear exactly why this patient fell. Speaking with her further about it, she believes that it was a mechanical fall associated with her wheelchair and the rug. We discussed inpatient versus outpatient monitoring. She feels that she has very supportive family, particular her daughter that she has to call to come pick her up. She has not had any new or worsening symptoms. Has been eating and drinking in the department. No further bleeding from scalp wound. She remains calm and oriented. I do feel that outpatient management would be appropriate, particularly if she has good familial support. Strict return precautions were discussed. Patient was able to get up to use the commode on 2 occasions and appears to be at her baseline, able to transfer unassisted but clearly has some weakness with walking which she reports is chronic and recent she uses the wheelchair at baseline. Her tetanus was out of date, will update this prior to her discharge. I did call her daughter who was able to pick her up from her home. We did discuss wound care in detail. Encourage close follow-up with primary care. All the questions and concerns were addressed and she is agreement this plan. HPI General Date/Time Provider Initiated Documentation: 02/04/22 08:42. Limitations to Documentation: no limitations. Information obtained by: patient, EMS and RN notes reviewed. History of Present Illness 76 year old F presents to the emergency department with the chief complaint of scalp laceration, not acting herself , described as moderate, with intensity rated at 4 (headache, pain at laceration site). Quality is described as aching, and is localized to the head. Patient reports no radiation. Patient started experiencing this unknown (found down this AM by , presumed to have fallen ) and it has been constant. No relieving factors improve symptom(s), No exacerbating factors reported . Patient notes confusion, headaches and syncope (presumed +LOC); denies chest pain, cough, diaphoresis, fever/chills, loss of appetite, malaise, nausea/vomiting, shortness of breath and weakness. Patient did receive the following treatments prior to arrival, none Related Data Home Medications Medication Instructions Recorded Confirmed duloxetine 60 mg capsule,delayed 60 mg PO DAILY 07/21/13 09/27/21 release (Cymbalta) pitavastatin calcium 2 mg tablet 1 mg PO DAILY 07/21/13 09/27/21 (Livalo) prednisone 5 mg tablet 5 mg PO DAILY 07/21/13 12/01/20 liraglutide 0.6 mg/0.1 mL (18 mg/3 1.8 mg SQ HS 12/23/16 09/27/21 mL) subcutaneous pen injector (Xcerionza 2-Tree) mecobalamin (vitamin B12) 1,000 1,000 mcg sublingual DAILY 12/23/16 12/01/20 mcg disintegrating tablet,sublingual melatonin 10 mg capsule 10 mg PO HS 12/23/16 09/27/21 multivitamin (Daily Value tablet) 1 ea PO DAILY 12/23/16 09/27/21 diltiazem HCl 300 mg 300 mg PO DAILY #30 caps 10/10/18 12/01/20 capsule,extended release 24 hr calcium carbonate 600 mg-vitamin 1 cap PO DAILY 11/09/19 12/01/20 D3 5 mcg (200 unit) capsule (Calcium 600 + D(3)) coenzyme Q10 100 mg capsule 100 mg PO DAILY 11/09/19 12/01/20 insulin lispro 200 unit/mL (3 mL) 30 unit subcut AC 11/09/19 12/01/20 subcutaneous pen (Humalog KwikPen U-200 Insulin) vitamin B complex 1 tab PO DAILY 11/09/19 09/27/21 pantoprazole 40 mg tablet,delayed 40 mg PO BID@0730,2000 #30 tabs 11/14/19 09/27/21 release tamsulosin 0.4 mg capsule 0.4 mg PO DAILY #14 caps 03/18/20 09/27/21 Saccharomyces boulardii 250 mg 250 mg PO BID #14 caps 10/16/20 12/01/20 capsule (Florastor) colestipol 1 gram tablet 1 g PO BID 11/28/20 09/27/21 ferrous fumarate 325 mg (106 mg 325 mg PO DAILY 11/28/20 12/01/20 iron) tablet metformin 500 mg tablet 500 mg PO DAILY 11/28/20 09/27/21 nystatin 100,000 unit/gram topical 1 applic topical TID 11/28/20 09/27/21 cream mirtazapine 15 mg tablet 15 mg PO QHS #30 tabs 12/01/20 12/01/20 apixaban 5 mg tablet (Eliquis) 2.5 mg PO BID 07/23/21 09/27/21 bupropion HCl 100 mg tablet,12 hr 100 mg PO BID 07/23/21 09/27/21 sustained-release (Wellbutrin SR) diphenhydramine HCl 50 mg capsule 50 mg PO QHS 07/23/21 furosemide 20 mg tablet (Lasix) 20 mg PO DAILY 07/23/21 09/27/21 insulin glargine U-300 conc 300 100 unit subcut DAILY 07/23/21 09/27/21 unit/mL (1.5 mL) subcutaneous pen (Darius SoloStar U-300 Insulin) magnesium oxide 400 mg (241.3 mg 400 mg PO DAILY 07/23/21 09/27/21 magnesium) tablet metoprolol succinate 200 mg 200 mg PO DAILY 07/23/21 09/27/21 capsule sprinkle, ext. release 24 hr oxycodone 10 mg tablet 20 mg PO DAILY PRN 07/23/21 09/27/21 trazodone 50 mg tablet 50 mg PO DAILY 07/23/21 09/27/21 diltiazem HCl 300 mg 300 mg PO DAILY 09/27/21 09/27/21 capsule,extended release 24 hr diphenhydramine HCl 50 mg capsule 50 mg PO DAILY 09/27/21 09/27/21 nirmatrelvir 150 mg-ritonavir 100 150 tab PO BID 09/27/21 09/27/21 mg tablets in a dose pack (EUA) (Paxlovid) prednisone 5 mg tablet 5 mg PO DAILY 09/27/21 09/27/21 Previous Rx's Medication Instructions Recorded diltiazem HCl 300 mg 300 mg PO DAILY #30 caps 10/10/18 capsule,extended release 24 hr pantoprazole 40 mg tablet,delayed 40 mg PO BID@729,1999 #30 tabs 11/14/19 release tamsulosin 0.4 mg capsule 0.4 mg PO DAILY #14 caps 03/18/20 Saccharomyces boulardii 250 mg 250 mg PO BID #14 caps 10/16/20 capsule (Florastor) mirtazapine 15 mg tablet 15 mg PO QHS #30 tabs 12/01/20 Allergies Allergy/AdvReac Type Severity Reaction Status Date / Time atorvastatin AdvReac Intermediate leg cramps Unverified 09/27/21 11:26 lisinopril AdvReac Intermediate cough Unverified 09/27/21 11:26 General REGAN: 3 Review of Systems Constitutional Constitutional: Reports as per HPI, Denies chills, Denies fatigue and Denies fever(s) Eyes Eyes: Reports as per HPI, Denies blurry vision, Denies change in vision and Denies loss of vision Cardiovascular Cardiovascular: Reports as per HPI, Denies chest pain and Denies dyspnea Respiratory Respiratory: Reports as per HPI, Denies cough, Denies pain on inspiration, Denies pain with cough and Denies dyspnea Gastrointestinal Gastrointestinal: Reports as per HPI, Denies abdominal pain, Denies nausea and Denies vomiting Genitourinary Genitourinary: Reports as per HPI and Denies urinary incontinence Musculoskeletal Musculoskeletal: Reports as per HPI Integumentary/Breasts Skin/Breast: Reports as per HPI Neurologic Neurologic: Reports as per HPI, Denies abnormal movements, Denies lack of coordination, Denies localized weakness, Denies loss of vision and Denies paresthesias Endocrine Endocrine: Denies fatigue PFSH All Active Problems (Updated 02/04/22 @ 14:01 by ALFRED Cota) Complex laceration of scalp (Acute) Head injury (Acute) Concussion (Acute) Acute UTI (Acute) STEMI (ST elevation myocardial infarction) (Acute) COVID (Acute) Recurrent UTI (Acute) History of cervical cancer (Acute) Insomnia (Acute) Goals of care, counseling/discussion (Acute) Wheelchair dependent (Chronic) motorized Laceration of ankle, right (Acute) Fracture of toe of right foot (Acute) Cellulitis (Acute) Poorly controlled type 2 diabetes mellitus (Acute) UTI (urinary tract infection) (Acute) Hydronephrosis with renal calculous obstruction (Acute) Calculus of proximal right ureter (Acute) Diabetes (Chronic) Atrial fibrillation (Chronic) Hypokalemia (Chronic) Psychogenic polydipsia (Chronic) UTI (urinary tract infection) (Acute) Weakness (Acute) Adjustment disorder (Acute) Advance directive on file (Acute) Atrial fibrillation with RVR (Acute) Acute diastolic CHF (congestive heart failure) (Acute) Bilateral nephrolithiasis (Chronic) Steroid dependent (Chronic) IDDM (insulin dependent diabetes mellitus) (Chronic) Diarrhea (Acute) UTI (urinary tract infection) (Acute) Dehydration (Acute) Ureterolithiasis (Acute) Hyperglycemia (Acute) Hyperglycemia due to type 1 diabetes mellitus (Acute) Gastrointestinal bleeding (Acute) C. difficile colitis (Acute) Duodenal ulcer (Acute) Medical History (Updated 02/04/22 @ 14:01 by ALFRED Cota) Ambulatory dysfunction Atrial fibrillation Diabetes HTN (hypertension) Hx of hyperlipidemia Obesity, morbid, BMI 40.0-49.9 Palliative care patient Pulmonary hypertension mild Rheumatoid arteritis Rheumatoid arthritis Surgical History History of cystoscopy History of hysterectomy Hx of cholecystectomy Family History Mother , in her late 60s from endometrial cancer Endometrial cancer Obesity Father , in his early 70s from alcoholic cirrhosis Alcohol abuse Cirrhosis, alcoholic Sister , in her early 70s from cervical cancer Cervical cancer Brother , age 60 from lung cancer Lung cancer Smoker Brother , age 50 from AIDS, history of IVDU AIDS IVDU (intravenous drug user) Brother , age 22 from suicide Suicide Brother , in psychiatric hospital ? COD IVDU (intravenous drug user) Daughter No problems noted. 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, [employer]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, 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 Pets and animals: Yes Pets and animals: cat(s) and dog(s) Do you think of yourself as: straight/heterosexual Current gender identity: female What is your relationship status?: How often do you talk on the phone with friends or family?: twice per week How often do you get together with friends or relatives?: twice per week Panel score (0-1 are the most socially isolated patients): 2 What type of physical activity do you participate in: assisted ambulation and sedentary lifestyle Frequency: does not exercise Special terra needs: No Seatbelt use: always Water heater temp set <120 deg: Yes Working smoke detector in home: Yes Fire extinguisher in home: Yes Firearms in home: Yes Do you feel safe at home: Yes Do you feel safe in your relationship?: Yes Additional Social history: Lives with her second Valeriy in [facility], handicapped [facility]. He is also very disabled, on dialysis, requires oxygen. She does not want him to be her health care agent as He will do what he wants, not what I want. She wants to be DNR/DNI. They moved up here from [place] to be near her daughter, Zahida. She also has 2 step-sons in [place] area and 3 more step kids in [place], [place] and [place]. 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 Exam Const General: cooperative, comfortable, no acute distress, well developed, well groomed and anxious (agitated) Nutritional Appearance: well nourished and obese Orientation: alert, awake and oriented x3 HENMT Head: normal to inspection, no palpable skull fracture and normocephalic Head images: 1. Area of laceration. This does appear to involve section of the galea. No significant bleeding at this time appears well controlled. No visible or palpable skull fracture. Tenderness directly at the site of the laceration. Hematoma to the left frontal aspect of the about 3 cm in diameter. No foreign body or debris noted. Ears: hearing grossly normal bilaterally, external ears normal and TM's normal bilaterally General nose exam: external nose normal Mouth: oral mucosae normal, lip normal and tongue normal Throat: posterior oropharynx normal Eyes General: appearance normal, both eyes and all related structures Alignment and Position: alignment normal Periorbital: periorbital findings normal Eyelids: eyelids normal Conjunctivae: conjunctivae normal Pupils: PERRL EOM: EOM intact bilaterally Neck Neck: normal visual inspection, no lymphadenopathy, trachea midline and supple Chest Chest: normal inspection of the chest, normal palpation of entire chest wall, no crepitus and no localized rib tenderness Resp Effort & Inspection: normal respiratory effort, able to speak in complete sentences and no respiratory distress Auscultation: clear to auscultation bilaterally, no rales, no rhonchi and no wheezes Cardio Rate: regular rate Rhythm: regular rhythm Heart Sounds: S1 normal and S2 normal GI Inspection: normal to inspection and no abdominal wall ecchymosis Palpation: soft, not firm, no guarding, no pulsatile masses, not rigid and nontender Auscultation: normal bowel sounds Back/Spine/Pelvis Back: no CVA tenderness Thoracic/Lumbar Spine: thoracic and lumbar spine normal to inspection, thoraco-lumbar ROM normal, No thoraco-lumbar spasm and No thoracic spinal tenderness Pelvis: no pain with anterior-posterior compression and no pain with lateral compression Skin Trauma: abrasion (Left posterior elbow, superficial with no bleeding) and laceration Neuro General: patient alert, patient awake, patient oriented x3, tone normal and moves all extremities Cranial Nerves: CN's II-XI intact bilaterally Speech: speech normal Gait: normal gait Motor: muscle tone normal throughout and strength 5/5 throughout Sensory Exam: no sensory deficits noted (no saddle paresthesias) Extrem General: normal to inspection, full ROM, capillary refill normal, no pedal edema and no calf tenderness Psych Appearance: grossly normal and well kempt Mental Status: mental status grossly normal Speech and Movement: speech and movement normal Procedures Laceration Laceration 1: Site: scalp Size (cm): 15 Description: flap Depth: involves muscle layer Local Anesthetic: Lidocaine 1% and with Epi Amount of anesthesia used (mL): 9 Pre-repair: wound explored and irrigated extensively Skin layer closed with: other (lazara) Number of sutures: 14 Technique: other (lazara) Subcutaneous layer closed with: vicryl (galea) Size: 4-0 Number of sutures: 9 Technique: simple, interrupted
[2022-02-04 09:31] LABS: Abs Immature Grans 0.02 10^3/uL (0.0-0.06); Absolute Basophil Count 0.03 10^3/uL (0.0-0.2); Absolute Lymphocyte Count 1.73 10^3/uL (1.2-3.4); Absolute Monocyte Count 0.67 10^3/uL (0.1-0.8); Absolute Neutrophil Count 5.15 10^3/uL (1.2-6.7); Basophils % 0.4; Eosinophils % 2.6; HCT 40.6 % (36.0-46.0); HGB 12.1 g/dL (11.2-15.7); Immature Grans % 0.3; Lymphocytes % 22.2; MCH 25.8 pg (27.0-33.0); MCHC 29.8 % (32.0-36.0); MCV 87 fL (80-95); MPV 9.1 fL (8.0-11.0); Monocytes % 8.6; Neutrophils % 65.9; Platelet Count 451 10^3/uL (130-400); RBC 4.69 10^6/uL (3.93-5.22); RDW 15.4 % (11.7-14.6); RDW-SD 48.8 fL
[2022-02-04 09:45] LABS: PTT Activated 27.1 sec (21.0-27.5); Prothrombin Time 10.5 sec (9.3-11.0)
[2022-02-04 09:50] LABS: ALT 21 U/L (14-59); AST 20 U/L (15-37); Albumin 3.4 g/dL (3.4-5.0); Alkaline Phosphatase 73 U/L (46-116); Anion Gap 6.4 mmol/L (3-11); BUN 20 mg/dL (7-18); Bilirubin, Total 0.3 mg/dL (0.2-1.0); CO2 29.6 mmol/L (21.0-32.0); CREATININE 1.4 mg/dL (0.55-1.02); Calcium 9.3 mg/dL (8.5-10.1); Chloride 103 mmol/L (98-107); Creatine Kinase 41 U/L (26-192); Estimated GFR 38.99 (mL/min/1.73m2); Glucose 96 mg/dL (74-106); Magnesium 1.6 mg/dL (1.8-2.4); Potassium 3.6 mmol/L (3.5-5.1); Sodium 139 mmol/L (136-145); Total Protein 8.8 g/dL (6.4-8.2); Troponin I < 50 ng/L (<or=60)
[2022-02-04] MEDS: DEXTROSE 5%-0.9% SALINE 1,000 ML 125 ML IV (09:50)
[2022-02-04 10:13] LABS: COVID-19 PCR Negative (Negative); Influenza A PCR Negative (Negative); Influenza B PCR Negative (Negative); RSV PCR Negative (Negative)
[2022-02-04] MEDS: MAGNESIUM SULFATE 1 GM/100 ML BAG IVPB (11:28)
[2022-02-04 12:38] LABS: Bilirubin Negative (Negative); Blood Moderate (Negative); Clarity Cloudy (Clear); Glucose Negative (Negative); Ketones Negative (Negative); Leukocyte Esterase Small (Negative); Nitrite Negative (Negative); Specific Gravity >= 1.030 (1.005-1.025); Urobilinogen 0.2 EU/dL (Up TO 0.2); pH 5.5 (5-8)
[2022-02-04 12:48] LABS: Bacteria Few HPF (Negative); C & S Indicated? Yes; Casts 0-2 Hyaline LPF (Negative); Crystals Negative HPF (Negative); Epithelial Cells Few HPF (Negative); Mucus Negative (Negative); RBC 20-50 HPF (0-2); WBC >50 HPF (0-5)
[2022-02-04 13:37] LABS: Troponin I < 50 ng/L (<or=60)
[2022-02-04 13:50] VITALS: BP 142/79; PULSE 78; RESP 15; O2SAT 96
== END 2022-02-04 14:40 | disposition home or self-care (01) ==
PROVIDERS: Emergency Provider Physician Assistant; PCP Family Medicine
DX: S06.0XAA Concussion with loss of consciousness status unknown, initial encounter (principal); S01.01XA Laceration without foreign body of scalp, initial encounter; V00.811A Fall from moving wheelchair (powered), initial encounter; E11.9 Type 2 diabetes mellitus without complications; N39.0 Urinary tract infection, site not specified; B96.89 Other specified bacterial agents as the cause of diseases classified elsewhere; I48.91 Unspecified atrial fibrillation; Z79.01 Long term (current) use of anticoagulants
CPT/HCPCS: 12035; 36416; 71250; 80053; 82550; 82962; 87077; 87637; 90471; 93005; 96365; 96366; 99284; 70450; 72125; 74176; 81003; 81015; 83735; 84484; 85025; 85610; 85730; 87086; 87186; 93010; J3475; J7042

== ENCOUNTER → 2022-02-12 13:38 | Outpatient (BNVA) | payer MEDICARE, MEDICAID, SELFPAY | PROVIDERS: PCP Family Medicine; Referring Provider Family Medicine; Visit Provider Urology | DX: N13.2 Hydronephrosis with renal and ureteral calculous obstruction (principal); Z87.440 Personal history of urinary (tract) infections | CPT/HCPCS: 99442 ==

== ENCOUNTER 2022-04-30 11:39 | Outpatient (REF) | payer MEDICARE, MEDICAID, SELFPAY ==
[2022-04-30 16:12] LABS: HGB 11.4 g/dL (11.2-15.7); MCH 27.5 pg (27.0-33.0); MCV 92 fL (80-95); MPV 10.2 fL (8.0-11.0); Platelet Count 381 10^3/uL (130-400); RBC 4.15 10^6/uL (3.93-5.22); RDW 15.4 % (11.7-14.6); RDW-SD 51.5 fL; WBC 7.94 10^3/uL (4.4-10.8)
[2022-04-30 16:25] LABS: Bilirubin Negative (Negative); Blood Moderate (Negative); Clarity Cloudy (Clear); Glucose 250 mg/dL (Negative); Ketones Negative (Negative); Leukocyte Esterase Moderate (Negative); Nitrite Negative (Negative); Specific Gravity >= 1.030 (1.005-1.025); Urobilinogen 0.2 EU/dL (Up TO 0.2)
[2022-04-30 16:56] LABS: Bacteria Many HPF (Negative); C & S Indicated? Yes; Crystals Negative HPF (Negative); Epithelial Cells Few HPF (Negative); Mucus Negative (Negative); WBC >50 HPF (0-5)
[2022-04-30 17:18] LABS: ALT 14 U/L (14-59); AST 22 U/L (15-37); Albumin 3.1 g/dL (3.4-5.0); Alkaline Phosphatase 92 U/L (46-116); Anion Gap 6.4 mmol/L (3-11); BUN 22 mg/dL (7-18); Bilirubin, Total 0.3 mg/dL (0.2-1.0); CO2 29.6 mmol/L (21.0-32.0); CREATININE 1.2 mg/dL (0.55-1.02); Calcium 9.1 mg/dL (8.5-10.1); Chloride 98 mmol/L (98-107); Estimated GFR 46.62 (mL/min/1.73m2); Glucose 308 mg/dL (74-106); Potassium 4.2 mmol/L (3.5-5.1); Sodium 134 mmol/L (136-145); TSH (W/Ref FT4) 0.94 uIU/mL (0.36-3.74); Total Protein 7.6 g/dL (6.4-8.2)
[2022-04-30 22:41] LABS: Estimated Average Glucose 186 mg/dL; Hemoglobin A1C 8.1 % (<5.7)
== END 2022-04-30 11:40 | disposition home or self-care (01) ==
LOC: NCHCN 11:39
PROVIDERS: PCP Family Medicine; Visit Provider Family Medicine
DX: R53.83 Other fatigue (principal); E11.65 Type 2 diabetes mellitus with hyperglycemia; I10 Essential (primary) hypertension; D64.9 Anemia, unspecified; N39.0 Urinary tract infection, site not specified
CPT/HCPCS: 80053; 85027; 81003; 81015; 83036; 84443; 87086

== ENCOUNTER 2022-06-27 08:37 | Outpatient (CLI) | payer MEDICARE, MEDICAID, SELFPAY | END 2022-06-27 08:38 | disposition home or self-care (01) | LOC: DI.CARD 08:37 | PROVIDERS: PCP Family Medicine; Visit Provider Internal Medicine Cardiovascular Disease | CPT/HCPCS: 93010 ==

== ENCOUNTER 2022-08-13 13:15 | Outpatient (REF) | payer MEDICARE, MEDICAID, SELFPAY ==
[2022-08-13 15:50] LABS: BUN 14 mg/dL (7-18); CREATININE 1.2 mg/dL (0.55-1.02); Calcium 9.7 mg/dL (8.5-10.1); Chloride 102 mmol/L (98-107); Estimated GFR 46.62 (mL/min/1.73m2); Glucose 178 mg/dL (74-106); Potassium 3.9 mmol/L (3.5-5.1); Sodium 140 mmol/L (136-145)
[2022-08-13 16:12] LABS: Hemoglobin A1C 7.7 % (<5.7)
== END 2022-08-13 13:16 | disposition home or self-care (01) ==
LOC: NCHCN 13:15
PROVIDERS: PCP Family Medicine; Visit Provider Family Medicine
DX: E11.65 Type 2 diabetes mellitus with hyperglycemia (principal); I10 Essential (primary) hypertension
CPT/HCPCS: 80048; 83036

== ENCOUNTER 2022-10-22 19:16 | Outpatient (REF) | payer MEDICARE, MEDICAID, SELFPAY ==
[2022-10-22 19:42] LABS: HCT 40.8 % (36.0-46.0); HGB 12.9 g/dL (11.2-15.7); MCHC 31.6 % (32.0-36.0); MCV 95 fL (80-95); MPV 10.5 fL (8.0-11.0); Platelet Count 323 10^3/uL (130-400); RDW 12.8 % (11.7-14.6); RDW-SD 44.8 fL; WBC 4.85 10^3/uL (4.4-10.8)
[2022-10-22 20:11] LABS: ESR 20 mm/hr (0-30)
[2022-10-22 22:11] LABS: Hemoglobin A1C 6.7 % (<5.7)
[2022-10-22 22:18] LABS: ALT 15 U/L (14-59); AST 21 U/L (15-37); Albumin 3.1 g/dL (3.4-5.0); Alkaline Phosphatase 98 U/L (46-116); Anion Gap 6.8 mmol/L (3-11); BUN 9 mg/dL (7-18); Bilirubin, Total 0.4 mg/dL (0.2-1.0); C-Reactive Protein 1.21 mg/dL (0.0-0.3); CO2 30.2 mmol/L (21.0-32.0); Calcium 8.6 mg/dL (8.5-10.1); Chloride 104 mmol/L (98-107); Estimated GFR 58.02 (mL/min/1.73m2); Glucose 124 mg/dL (74-106); Potassium 4.3 mmol/L (3.5-5.1); Sodium 141 mmol/L (136-145); Total Protein 6.6 g/dL (6.4-8.2)
== END 2022-10-22 19:17 | disposition home or self-care (01) ==
LOC: NCHCN 19:16
PROVIDERS: PCP Family Medicine; Visit Provider Family Medicine
DX: Z51.81 Encounter for therapeutic drug level monitoring (principal); M06.9 Rheumatoid arthritis, unspecified; E11.65 Type 2 diabetes mellitus with hyperglycemia; I48.91 Unspecified atrial fibrillation
CPT/HCPCS: 80053; 85027; 85652; 83036; 86140

== ENCOUNTER → 2023-02-12 11:19 | Outpatient (BNVA) | payer MEDICARE, MEDICAID, SELFPAY | PROVIDERS: PCP Family Medicine; Referring Provider Family Medicine; Visit Provider Nurse Practitioner Gerontology | DX: N13.2 Hydronephrosis with renal and ureteral calculous obstruction (principal); Z87.440 Personal history of urinary (tract) infections; I25.2 Old myocardial infarction | CPT/HCPCS: 99442 ==

== ENCOUNTER → 2023-02-17 11:36 | Outpatient (BNVA) | payer MEDICARE, MEDICAID, SELFPAY | PROVIDERS: PCP Family Medicine; Referring Provider Family Medicine; Visit Provider Nurse Practitioner Gerontology | DX: N39.0 Urinary tract infection, site not specified (principal); E11.65 Type 2 diabetes mellitus with hyperglycemia; R41.82 Altered mental status, unspecified | CPT/HCPCS: 99213 ==

== ENCOUNTER 2023-02-17 12:22 | Inpatient (IN) | payer MEDICARE, MEDICAID, SELFPAY ==
[2023-02-17] VITALS (52 sets, daily range): BP systolic 102–138; BP diastolic 50–99; PULSE 81–147; RESP 10–24; TEMP 36.4–37; O2SAT 93–98
--- NOTE | 2023-02-17 | DI.US_ITS ---
Exam(s) US RENAL EXAM: US RENAL CLINICAL HISTORY: UTI, LUTHER, h/o obstructive uropathy. TECHNIQUE: Prieto scale, color and spectral Doppler were used. COMPARISON: US US renal from 10/06/[address] CHEST/ABD/PEL WO from 02/04/2022 FINDINGS: Renal size in cm: Right: 11.3. Left: 11.8. Echogenicity: Normal. Hydronephrosis: There is moderate right hydronephrosis. Cyst or mass: No. Nephrolithiasis: There are echogenic foci seen in the left kidney suspicious for nonobstructing stone s. The largest measures 6 mm and is located in the lower pole. Other findings: None. Bladder:Normal. Ureteral jets: Right: Visualized and unremarkable. Left: Visualized and unremarkable. Prevoid vol:113 cc Postvoid vol:The patient was unable to void during the examination. Renal color flow: Symmetric and within normal limits. IMPRESSION: 1. Moderate right hydronephrosis. 2. Left nephrolithiasis. No obstructive uropathy. DATA REPOSITORY:
--- NOTE | 2023-02-17 12:30 | RT.EKG_ITS ---
APPROVED REPORT Exam: Resting ECG Reason for Exam: AMS Patient Location: E HR:145 bpm ECG Measurements Heart Rate 145 AXIS IN [id number] P [id number] QRSd 104 QRS 1 QT 318 T -10 QTc 494 Conclusion Atrial fibrillation with rapid V-rate...A-rate 358 Inferior infarct, old...Q >35mS, II III aVF
[2023-02-17] MEDS: dilTIAZem 25 MG/5 ML VIAL 15 MG IVP (12:49)
--- NOTE | 2023-02-17 13:00 | ED.GENADUL_ITS ---
Discharge Plan Discharge Details Chief Complaint: [facility]Medical Primary Care Provider: Marleen Warren ED Provider: Vikas Castro Home Meds and New Rx's Prescriptions: No Action colestipol 1 gram tablet 1 g PO BID ferrous fumarate 325 mg (106 mg iron) tablet 325 mg PO DAILY metformin 500 mg tablet 500 mg PO DAILY nystatin 100,000 unit/gram cream 1 applic topical TID mirtazapine 15 mg tablet 15 mg PO QHS Qty: 30 0RF Rx Instructions: increased dose from 7.5 mg Toujeo SoloStar U-300 Insulin 300 unit/mL (1.5 mL) insulin pen 100 unit subcut DAILY Eliquis 5 mg tablet 2.5 mg PO BID oxycodone 10 mg tablet 20 mg PO DAILY PRN sulfamethoxazole-trimethoprim 400-80 mg tablet 1 tab PO DAILY Qty: 90 3RF Rx Instructions: Prophylactic antibiotic for UTI prevention magnesium oxide 400 mg (241.3 mg magnesium) tablet 400 mg PO DAILY diphenhydramine HCl 50 mg capsule 50 mg PO QHS furosemide [Lasix] 20 mg tablet 20 mg PO DAILY metoprolol succinate 200 mg capsule,sprinkle,ER 24hr 200 mg PO DAILY bupropion HCl [Wellbutrin SR] 100 mg tablet sustained-release 12 hr 100 mg PO BID trazodone 50 mg tablet 50 mg PO DAILY multivitamin [Daily Value] 1 EACH tablet 1 ea PO DAILY Victoza 2-Tree 0.6 MG/0.1 ML pen injector 1.8 mg SQ HS melatonin 10 MG capsule 10 mg PO HS mecobalamin (vitamin B12) 1,000 MCG tablet,disintegrating 1,000 mcg Sublingual DAILY prednisone 5 MG tablet 5 mg PO DAILY Livalo 2 MG tablet 1 mg PO DAILY diltiazem HCl 300 mg Capsule,Extended Release 24hr 300 mg PO DAILY Qty: 30 0RF Calcium 600 + D(3) 600 mg calcium- 200 unit Capsule 1 cap PO DAILY coenzyme Q10 100 mg Capsule 100 mg PO DAILY Humalog KwikPen Insulin 200 unit/mL (3 mL) insulin pen 30 unit SUBCUT AC Patient Comments: INJECT 30 UNITS UNDER THE SKIN BEFORE EACH MEAL Rx Instructions: BEFORE EACH MEAL vitamin B complex Tablet 1 tab PO DAILY pantoprazole 40 mg Tablet,Delayed Release (Dr/Ec) 40 mg PO BID@729,1999 Qty: 30 0RF tamsulosin 0.4 mg Capsule 0.4 mg PO DAILY Qty: 14 0RF Saccharomyces boulardii [Florastor] 250 mg capsule 250 mg PO BID Qty: 14 0RF Paxlovid 150-100 mg tablet 150 tab PO BID Patient Comments: Take 2 tablets by mouth twice daily for 5 days Rx Instructions: take 2 tabs by mouth twice daily diltiazem HCl 300 mg capsule,extended release 24hr 300 mg PO DAILY diphenhydramine HCl 50 mg capsule 50 mg PO DAILY Patient Comments: Take 1 capsule by mouth every night Medical Decision Making This dictation utilizes [id number] dictation software and may contain unedited grammatical errors. 77 y/o F with morbid obesity, t2DM, atrial fibrillation presents to ED today with a chief complaint of confusion, possible dysuria, medication noncompliance. Onset and characteristics include not able to fully quantify- unsure if insulin dependent, unknown if taking blood thinners, in a. fib w/ RVR. Family and social history: unknown. Patient's primary tobacco checkout clerk is her , who [place] [facility] [place] Pertinent exam findings / vital signs include tachycardic, irregular rhythm in AF w/RVR, morbid obesity, confused. Differential / pathologies of concern include UTI, uncontrolled atrial fibrillation w/ RVR, DKA, Hyperglycemia, Sepsis, ACS, CHF. Diagnostic studies of: -CBC, CMP, VBG, coags, ammonia, troponin, BNP, UA, EKG, portable chest x-ray, Covid/Flu/RSV PCR. -Glucose 633 -Creatinine 1.6, LUTHER -BNP >2000, likely due to uncontrolled atrial fibrillation -UA shows leuk esterase -EKG shows no major signs of ischemia or hyperkalemia, shows atrial fibrillation with RVR -lactate 2.5, Cx's pending Interventions of: -500mL IV fluid bolus -15mg IV push dose diltiazem with good response to HR 112, starting PO home dose 300mg -IV Ceftriaxone for UTI ED Course: Patient has an acute complicated medical problem with multiple chronic comorbidities and exacerbation. She is unsafe to manage these at home as she has no way of assuring medication compliance and her hyperglycemia would likely get worse over the short-term, it is unsure if she has been compliant with her blood thinner I do not think cardioversion is the best option, she responded well to 1 dose of 15 mg of diltiazem to rate control around 112 bpm down from 140s. Her urine was very cloudy she may have a UTI and I am giving an empiric dose of ceftriaxone. Her elevated BNP is likely due to her uncontrolled atrial fibrillation without history of congestive heart failure but she may need cardiology consult with possible echocardiogram for new onset CHF. Patient seen by myself and EM Attending Dr. Silvino Arzola. Findings not consistent with overt DKA- patient has compensated pH but this would likely decompensate in the acute period. Has not been taking any of her home medications for some time, and has no reliable way to safely discharge home. Possibly needs an ECHO, may need care management while her is [place] [facility] [place] unlikely acute coronary syndrome at this time, UA shows leukocyte esterase with 10-20 WBCs, covering UTI. Discussed with Hospitalist Dr. Bro, who accepts for admission. Oncoming ED provider is the midlevel Hospitalist and is aware of patients case while she awaits to be brought upstairs. Disposition of Hyperglycemia, Debility, UTI, Atrial Fibrillation with Rapid Ventricular Response. Assessment/Plan: Patient has no safe discharge home, needs admission as her hyperglycemia would likely decompensate to DKA in the acute period, she has stability and complete unreliability of medication compliance as well as UTI and atrial fibrillation with RVR. Patient verbalized understanding of the plan and return to ED criteria and engaged in shared decision making. Medical Records Medical records reviewed: Yes I reviewed the patient's medical records. Imaging Data Radiologic Study: Imaging: X-Ray Radiologist's impression: EXAM: XR PORTABLE CHEST AP CLINICAL HISTORY: tachycardia TECHNIQUE: 2D digital imaging was performed of the chest. One image was obtained. An AP view was obtained. COMPARISON: CR XR PORTABLE CHEST AP from 09/27/2021 FINDINGS: MEDIASTINUM: Normal. HEART: Stable heart size. PULMONARY VASCULATURE: Normal. LUNGS: Clear. PLEURAL SPACE: No pleural effusion or pneumothorax. BONE:Within normal limits for the patient's age. OTHER FINDINGS:Normal. IMPRESSION: No acute pulmonary findings. Lab Data Labs: 02/17/23 13:10 Urine - Reflex from Ua Urine Culture - Pending 02/17/23 13:05 Blood Blood Culture - Pending 02/17/23 12:50 Blood Blood Culture - Pending Laboratory Tests Range/Units 02/17/23 02/17/23 02/17/23 12:35 12:50 12:54 WBC (4.4-10.8) 10^3/uL 6.64 RBC (3.93-5.22) 10^6/uL 4.59 Hgb (11.2-15.7) g/dL 13.6 Hct (36.0-46.0) % 42.0 MCV (80-95) fL 92 MCH (27.0-33.0) pg 29.6 MCHC (32.0-36.0) % 32.4 RDW (11.7-14.6) % 13.7 Plt Count (130-400) 10^3/uL 412 H MPV (8.0-11.0) fL 10.2 Immature Gran % 0.5 Neutrophils % 63.5 Lymphocytes % 22.6 Monocytes % 11.0 Eosinophils % 2.1 Basophils % 0.3 Nucleated RBC % (0.0-0.3) % 0.0 Absolute Neutrophils (1.2-6.7) 10^3/uL 4.22 Absolute Lymphocytes (1.2-3.4) 10^3/uL 1.50 Absolute Monocytes (0.1-0.8) 10^3/uL 0.73 Absolute Eosinophils (0.0-0.7) 10^3/uL 0.14 Absolute Basophils (0.0-0.2) 10^3/uL 0.02 PT (9.1-11.1) sec 11.1 INR (0.9-1.1) 1.1 APTT (23.6-32.8) sec 31.7 VBG pH (7.31-7.41) VBG pCO2 (41-51) mmHg VBG pO2 mmHg VBG HCO3 (23-28) mmol/L VBG Total CO2 (24-29) mmol/L VBG O2 Saturation % VBG Base Excess (-2-3) mmol/L VBG Lactate (0.6-1.4) mmol/L Sodium (136-145) mmol/L 127 L Potassium (3.5-5.1) mmol/L 3.7 Chloride (98-107) mmol/L 93 L Carbon Dioxide (21.0-32.0) mmol/L 23.9 Anion Gap (3-11) mmol/L 10.1 BUN (7-18) mg/dL 13 Creatinine (0.55-1.02) mg/dL 1.6 H Est GFR (CKD-EPI 2020) (mL/min/1.73m2) 33.01 Glucose (74-106) mg/dL 633 H* Calcium (8.5-10.1) mg/dL 9.4 Magnesium (1.8-2.4) mg/dL 1.8 Total Bilirubin (0.2-1.0) mg/dL 0.5 AST (15-37) U/L 16 ALT (14-59) U/L 18 Alkaline Phosphatase (46-116) U/L 150 H Ammonia (11-32) umol/L 13 Troponin I (<or=60) ng/L < 50 NT-Pro-B Natriuret Pep (<300) pg/mL 2020 H Total Protein (6.4-8.2) g/dL 7.9 Albumin (3.4-5.0) g/dL 2.7 L Lipase (16-77) U/L 39 TSH (0.36-3.74) uIU/mL 1.24 Urine Color (Yellow) Urine Clarity (Clear) Urine pH (5-8) Ur Specific Casar (1.005-1.025) Urine Protein (Negative) mg/dL Urine Ketones (Negative) mg/dL Urine Blood (Negative) Urine Nitrite (Negative) Urine Bilirubin (Negative) Urine Urobilinogen (Up to 0.2) mg/dL Ur Leukocyte Esterase (Negative) Urine RBC (0-2) HPF Urine WBC (0-5) HPF Ur Epithelial Cells Urine Crystals Urine Bacteria Urine Mucus Ur Culture Indicated? Urine Glucose (Negative) mg/dL COVID-19 Source Nasopharynx SARS-CoV-2 (PCR) (Negative) Negative Influenza Type A (PCR) (Negative) Negative Influenza Type B (PCR) (Negative) Negative RSV (PCR) (Negative) Negative Range/Units 02/17/23 02/17/23 02/17/23 13:02 13:10 14:00 WBC (4.4-10.8) 10^3/uL RBC (3.93-5.22) 10^6/uL Hgb (11.2-15.7) g/dL Hct (36.0-46.0) % MCV (80-95) fL MCH (27.0-33.0) pg MCHC (32.0-36.0) % RDW (11.7-14.6) % Plt Count (130-400) 10^3/uL MPV (8.0-11.0) fL Immature Gran % Neutrophils % Lymphocytes % Monocytes % Eosinophils % Basophils % Nucleated RBC % (0.0-0.3) % Absolute Neutrophils (1.2-6.7) 10^3/uL Absolute Lymphocytes (1.2-3.4) 10^3/uL Absolute Monocytes (0.1-0.8) 10^3/uL Absolute Eosinophils (0.0-0.7) 10^3/uL Absolute Basophils (0.0-0.2) 10^3/uL PT (9.1-11.1) sec INR (0.9-1.1) APTT (23.6-32.8) sec VBG pH (7.31-7.41) 7.31 VBG pCO2 (41-51) mmHg 53 H VBG pO2 mmHg 27 VBG HCO3 (23-28) mmol/L 27 VBG Total CO2 (24-29) mmol/L 25 VBG O2 Saturation % 44 VBG Base Excess (-2-3) mmol/L 1 VBG Lactate (0.6-1.4) mmol/L 2.5 H* Sodium (136-145) mmol/L Potassium (3.5-5.1) mmol/L Chloride (98-107) mmol/L Carbon Dioxide (21.0-32.0) mmol/L Anion Gap (3-11) mmol/L BUN (7-18) mg/dL Creatinine (0.55-1.02) mg/dL Est GFR (CKD-EPI 2020) (mL/min/1.73m2) Glucose (74-106) mg/dL Calcium (8.5-10.1) mg/dL Magnesium (1.8-2.4) mg/dL Total Bilirubin (0.2-1.0) mg/dL AST (15-37) U/L ALT (14-59) U/L Alkaline Phosphatase (46-116) U/L Ammonia (11-32) umol/L Troponin I (<or=60) ng/L NT-Pro-B Natriuret Pep (<300) pg/mL Total Protein (6.4-8.2) g/dL Albumin (3.4-5.0) g/dL Lipase (16-77) U/L TSH (0.36-3.74) uIU/mL Urine Color (Yellow) Yellow Urine Clarity (Clear) Cloudy Urine pH (5-8) 5.0 Ur Specific Casar (1.005-1.025) 1.010 Urine Protein (Negative) mg/dL 30 H Urine Ketones (Negative) mg/dL Negative Urine Blood (Negative) Moderate H Urine Nitrite (Negative) Negative Urine Bilirubin (Negative) Negative Urine Urobilinogen (Up to 0.2) mg/dL 0.2 Ur Leukocyte Esterase (Negative) Small H Urine RBC (0-2) HPF 20-50 H Urine WBC (0-5) HPF 10-20 H Ur Epithelial Cells Not Applicable Urine Crystals Not Applicable Urine Bacteria Not Applicable Urine Mucus Not Applicable Ur Culture Indicated? Yes Urine Glucose (Negative) mg/dL 500 H COVID-19 Source SARS-CoV-2 (PCR) (Negative) Influenza Type A (PCR) (Negative) Influenza Type B (PCR) (Negative) RSV (PCR) (Negative) HPI General Date/Time Provider Initiated Documentation: 02/17/23 12:36 . HPI Narrative: 77 year-old female with history of atrial fibrillation, t2DM, HTN, pulmonary HTN presents to ED today by POV/ambulating from Urology clinic upstairs with a chief complaint of confusion with onset unknown - patient states they have not been taking their medications, appeared confused to staff at specialty clinic- complaint of possible dysuria, tachycardia noted. Quality described as unable to reliably quantify, no radiation to chest pain, respiratory distress, severe pedal edema, syncope. Severity is described as unable to reliably quantify. Palliating factors include unknown. Provoking factors include her [place] [facility] [place] her with medicines etc. Events leading up to the incident/Associated Symptoms: Patient is unsure what medicines she has been taking, unsure if she is insulin dependent, unsure if she's ever had CHF. Patient not anticoagulated. Related Data Home Medications Medication Instructions Recorded Confirmed pitavastatin calcium 2 mg tablet 1 mg PO DAILY 07/21/13 02/17/23 (Livalo) prednisone 5 mg tablet 5 mg PO DAILY 07/21/13 02/17/23 liraglutide 0.6 mg/0.1 mL (18 mg/3 1.8 mg SQ HS 12/23/16 02/17/23 mL) subcutaneous pen injector (Victoza 2-Tree) mecobalamin (vitamin B12) 1,000 1,000 mcg sublingual DAILY 12/23/16 02/17/23 mcg disintegrating tablet,sublingual melatonin 10 mg capsule 10 mg PO HS 12/23/16 02/17/23 multivitamin (Daily Value tablet) 1 ea PO DAILY 12/23/16 02/17/23 diltiazem HCl 300 mg 300 mg PO DAILY #30 caps 10/10/18 02/17/23 capsule,extended release 24 hr calcium carbonate 600 mg-vitamin 1 cap PO DAILY 11/09/19 02/17/23 D3 5 mcg (200 unit) capsule (Calcium 600 + D(3)) coenzyme Q10 100 mg capsule 100 mg PO DAILY 11/09/19 02/17/23 insulin lispro 200 unit/mL (3 mL) 30 unit subcut AC 11/09/19 02/17/23 subcutaneous pen (Humalog KwikPen U-200 Insulin) vitamin B complex 1 tab PO DAILY 11/09/19 02/17/23 pantoprazole 40 mg tablet,delayed 40 mg PO BID@0730,1999 #30 tabs 11/14/19 02/17/23 release tamsulosin 0.4 mg capsule 0.4 mg PO DAILY #14 caps 03/18/20 02/17/23 Saccharomyces boulardii 250 mg 250 mg PO BID #14 caps 10/16/20 02/17/23 capsule (Florastor) colestipol 1 gram tablet 1 g PO BID 11/28/20 02/17/23 ferrous fumarate 325 mg (106 mg 325 mg PO DAILY 11/28/20 02/17/23 iron) tablet metformin 500 mg tablet 500 mg PO DAILY 11/28/20 02/17/23 nystatin 100,000 unit/gram topical 1 applic topical TID 11/28/20 02/17/23 cream mirtazapine 15 mg tablet 15 mg PO QHS #30 tabs 12/01/20 02/17/23 apixaban 5 mg tablet (Eliquis) 2.5 mg PO BID 07/23/21 02/17/23 bupropion HCl 100 mg tablet,12 hr 100 mg PO BID 07/23/21 02/17/23 sustained-release (Wellbutrin SR) diphenhydramine HCl 50 mg capsule 50 mg PO QHS 07/23/21 02/17/23 furosemide 20 mg tablet (Lasix) 20 mg PO DAILY 07/23/21 02/17/23 insulin glargine U-300 conc 300 100 unit subcut DAILY 07/23/21 02/17/23 unit/mL (1.5 mL) subcutaneous pen (Toujeo SoloStar U-300 Insulin) magnesium oxide 400 mg (241.3 mg 400 mg PO DAILY 07/23/21 02/17/23 magnesium) tablet metoprolol succinate 200 mg 200 mg PO DAILY 07/23/21 02/17/23 capsule sprinkle, ext. release 24 hr oxycodone 10 mg tablet 20 mg PO DAILY PRN 07/23/21 02/17/23 trazodone 50 mg tablet 50 mg PO DAILY 07/23/21 02/17/23 diltiazem HCl 300 mg 300 mg PO DAILY 09/27/21 02/17/23 capsule,extended release 24 hr diphenhydramine HCl 50 mg capsule 50 mg PO DAILY 09/27/21 02/17/23 nirmatrelvir 150 mg-ritonavir 100 150 tab PO BID 09/27/21 02/17/23 mg tablets in a dose pack (PaxRoom Choicevid) sulfamethoxazole 400 1 tab PO DAILY #90 tabs 02/12/23 02/17/23 mg-trimethoprim 80 mg tablet Previous Rx's Medication Instructions Recorded diltiazem HCl 300 mg 300 mg PO DAILY #30 caps 10/10/18 capsule,extended release 24 hr pantoprazole 40 mg tablet,delayed 40 mg PO BID@ #30 tabs 11/14/19 release tamsulosin 0.4 mg capsule 0.4 mg PO DAILY #14 caps 03/18/20 Saccharomyces boulardii 250 mg 250 mg PO BID #14 caps 10/16/20 capsule (Florastor) mirtazapine 15 mg tablet 15 mg PO QHS #30 tabs 12/01/20 sulfamethoxazole 400 1 tab PO DAILY #90 tabs 02/12/23 mg-trimethoprim 80 mg tablet Allergies Allergy/AdvReac Type Severity Reaction Status Date / Time atorvastatin AdvReac Intermediate leg cramps Unverified 09/27/21 11:26 lisinopril AdvReac Intermediate cough Unverified 09/27/21 11:26 General Stated Complaint: [facility] REGAN: 3 Review of Systems Unobtainable due to mental condition PFSH All Active Problems (Updated 02/17/23 @ 15:11 by Sapna Bro MD) Toxic metabolic encephalopathy (Acute) LUTHER (acute kidney injury) (Acute) Chronic atrial fibrillation with RVR (Acute) STEMI (ST elevation myocardial infarction) (Acute) COVID (Acute) Recurrent UTI (Acute) History of cervical cancer (Acute) Insomnia (Acute) Goals of care, counseling/discussion (Acute) Wheelchair dependent (Chronic) motorized Laceration of ankle, right (Acute) Fracture of toe of right foot (Acute) Cellulitis (Acute) Poorly controlled type 2 diabetes mellitus (Acute) UTI (urinary tract infection) (Acute) Hydronephrosis with renal calculous obstruction (Acute) Calculus of proximal right ureter (Acute) Diabetes (Chronic) Atrial fibrillation (Chronic) Hypokalemia (Chronic) Psychogenic polydipsia (Chronic) UTI (urinary tract infection) (Acute) Weakness (Acute) Adjustment disorder (Acute) Advance directive on file (Acute) Atrial fibrillation with RVR (Acute) Acute diastolic CHF (congestive heart failure) (Acute) Bilateral nephrolithiasis (Chronic) Steroid dependent (Chronic) IDDM (insulin dependent diabetes mellitus) (Chronic) Diarrhea (Acute) UTI (urinary tract infection) (Acute) Dehydration (Acute) Ureterolithiasis (Acute) Hyperglycemia (Acute) Hyperglycemia due to type 1 diabetes mellitus (Acute) Gastrointestinal bleeding (Acute) C. difficile colitis (Acute) Duodenal ulcer (Acute) Medical History (Updated 02/17/23 @ 15:11 by Sapna Bro MD) Palliative care patient Ambulatory dysfunction Obesity, morbid, BMI 40.0-49.9 Pulmonary hypertension mild Rheumatoid arthritis Rheumatoid arteritis Hx of hyperlipidemia HTN (hypertension) Diabetes Atrial fibrillation Surgical History History of cystoscopy History of hysterectomy Hx of cholecystectomy Family History Mother , in her late 60s from endometrial cancer Endometrial cancer Obesity Father , in his early 70s from alcoholic cirrhosis Alcohol abuse Cirrhosis, alcoholic Sister , in her early 70s from cervical cancer Cervical cancer Brother , age 60 from lung cancer Lung cancer Smoker Brother , age 50 from AIDS, history of IVDU AIDS IVDU (intravenous drug user) Brother , age 22 from suicide Suicide Brother , in psychiatric hospital ? COD IVDU (intravenous drug user) Daughter No problems noted. 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, 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, 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, 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 Pets and animals: Yes Pets and animals: cat(s) and dog(s) Do you think of yourself as: straight/heterosexual Current gender identity: female What is your relationship status?: How often do you talk on the phone with friends or family?: twice per week How often do you get together with friends or relatives?: twice per week Panel score (0-1 are the most socially isolated patients): 2 What type of physical activity do you participate in: assisted ambulation and sedentary lifestyle Frequency: does not exercise Special terra needs: No Seatbelt use: always Water heater temp set <120 deg: Yes Working smoke detector in home: Yes Fire extinguisher in home: Yes Firearms in home: Yes Do you feel safe at home: Yes Do you feel safe in your relationship?: Yes Exam Narrative Exam Narrative: GENERAL APPEARANCE: Morbid obesity, non-toxic, tired and alert- answers questions appropriately, atraumatic, no acute distress. SKIN: Warm, pink, dry, intact, without rashes/lesions/ulcerations. HEAD: Normocephalic, atraumatic, normal hair distribution for gender/age. EYES: Pupils PERRLA, EOMs intact without nystagmus, normal conjunctiva, no exudates on lids/lashes. ENT: Nares patent, no circumoral cyanosis, no facial swelling NECK: Supple, trachea midline, painless cervical ROM. LUNGS/CHEST: Lungs CTA bilaterally - no rales at bases, non-labored respirations, normal A/P diameter, symmetrical expansion, no chest wall deformity HEART (CV/PV): Irregular, tachycardic rate and rhythm without murmur, no peripheral edema- difficult w/ body habitus, no pitting, no JVD. ABDOMEN: Soft, non-distended, no guarding, no tenderness. MSK: Normal ROM, no swelling/deformity to bilateral UEs or LEs, moving all extremities without weakness, no cyanosis, spine midline without tenderness, normal curvature. NEURO: Mental Status AAOx4 - alert to person, place, time, events No facial droop, no forehead involvement. Motor: No focal weakness - strength 5/5 in bilateral UEs and LEs, proximal and distal, symmetric. Sensory: sensation intact to light touch globally. Gait normal: patient ambulated without ataxia into ED room. PSYCH: euthymic, cooperative, pleasant, appropriate speech Course Vital Signs Vital signs: Vital Signs Temperature 36.4 C L 02/17/23 12:26 Pulse 147 H 02/17/23 12:26 Respiratory Rate 20 02/17/23 12:26 Blood Pressure 123/77 02/17/23 12:26 Pulse Oximetry 96 02/17/23 12:26 Temperature 36.4 C L 02/17/23 12:33 Temperature Source Oral 02/17/23 12:33 Pulse 146 H 02/17/23 12:49 Respiratory Rate 20 02/17/23 12:33 Respiratory Effort Normal 02/17/23 12:32 Blood Pressure 123/77 02/17/23 12:33 Pulse Oximetry 96 02/17/23 12:33 Oxygen Delivery Method Room Air 02/17/23 12:33 Oxygen Flow Rate 0 02/17/23 12:33 Pain Level 0 02/17/23 12:26 Lab/Test Results Lab/Test Results: 02/17/23 12:50 Blood Blood Culture - Pending 02/17/23 12:45 Blood Blood Culture - Pending
[2023-02-17 13:02] LABS: Abs Immature Grans 0.03 10^3/uL (0.0-0.06); Absolute Basophil Count 0.02 10^3/uL (0.0-0.2); Absolute Eosinophil Count 0.14 10^3/uL (0.0-0.7); Absolute Monocyte Count 0.73 10^3/uL (0.1-0.8); Absolute Neutrophil Count 4.22 10^3/uL (1.2-6.7); Basophils % 0.3; Eosinophils % 2.1; HGB 13.6 g/dL (11.2-15.7); Immature Grans % 0.5; Lymphocytes % 22.6; MCH 29.6 pg (27.0-33.0); MCHC 32.4 % (32.0-36.0); MCV 92 fL (80-95); MPV 10.2 fL (8.0-11.0); Neutrophils % 63.5; Platelet Count 412 10^3/uL (130-400); RBC 4.59 10^6/uL (3.93-5.22); RDW 13.7 % (11.7-14.6); RDW-SD 46.5 fL; WBC 6.64 10^3/uL (4.4-10.8)
[2023-02-17] MEDS: Normal Saline 250 ML 500 ML IV (13:02)
[2023-02-17 13:14] LABS: BE (Venous) 1 mmol/L (-2-3); HCO3 (Venous) 27 mmol/L (23-28); O2 Sat (Venous) 44 %; TCO2 (Venous) 25 mmol/L (24-29); pCO2 (Venous) 53 mmHg (41-51); pH (Venous) 7.31 (7.31-7.41); pO2 (Venous) 27 mmHg
[2023-02-17 13:14] LABS: Ammonia 13 umol/L (11-32)
[2023-02-17 13:17] LABS: INR 1.1 (0.9-1.1); PTT Activated 31.7 sec (23.6-32.8); Prothrombin Time 11.1 sec (9.1-11.1)
[2023-02-17 13:24] LABS: Bilirubin Negative (Negative); Blood Moderate (Negative); Clarity Cloudy (Clear); Glucose 500 mg/dL (Negative); Ketones Negative (Negative); Leukocyte Esterase Small (Negative); Nitrite Negative (Negative); Urobilinogen 0.2 mg/dL (Up to 0.2)
[2023-02-17 13:24] LABS: Lipase 39 U/L (16-77); Magnesium 1.8 mg/dL (1.8-2.4); NT-proBNP 2020 pg/mL (<300)
[2023-02-17 13:30] LABS: ALT 18 U/L (14-59); AST 16 U/L (15-37); Albumin 2.7 g/dL (3.4-5.0); Alkaline Phosphatase 150 U/L (46-116); Anion Gap 10.1 mmol/L (3-11); BUN 13 mg/dL (7-18); Bilirubin, Total 0.5 mg/dL (0.2-1.0); CO2 23.9 mmol/L (21.0-32.0); CREATININE 1.6 mg/dL (0.55-1.02); Calcium 9.4 mg/dL (8.5-10.1); Chloride 93 mmol/L (98-107); Estimated GFR 33.01 (mL/min/1.73m2); Potassium 3.7 mmol/L (3.5-5.1); Sodium 127 mmol/L (136-145); TSH (W/Ref FT4) 1.24 uIU/mL (0.36-3.74); Total Protein 7.9 g/dL (6.4-8.2); Troponin I < 50 ng/L (<or=60)
--- NOTE | 2023-02-17 13:30 | DI.RAD_ITS ---
Exam(s) XR PORTABLE CHEST AP EXAM: XR PORTABLE CHEST AP CLINICAL HISTORY: tachycardia TECHNIQUE: 2D digital imaging was performed of the chest. One image was obtained. An AP view was ob tained. COMPARISON: CR XR PORTABLE CHEST AP from 09/27/2021 FINDINGS: MEDIASTINUM: Normal. HEART: Stable heart size. PULMONARY VASCULATURE: Normal. LUNGS: Clear. PLEURAL SPACE: No pleural effusion or pneumothorax. BONE:Within normal limits for the patient's age. OTHER FINDINGS:Normal. IMPRESSION: No acute pulmonary findings. DATA REPOSITORY: RADIATION DOSE DELIVERED:
[2023-02-17 13:31] LABS: C & S Indicated? Yes; RBC 20-50 HPF (0-2)
[2023-02-17 13:32] LABS: Glucose 633 mg/dL (74-106)
[2023-02-17 13:48] LABS: COVID-19 PCR Negative (Negative); Influenza A PCR Negative (Negative); Influenza B PCR Negative (Negative); RSV PCR Negative (Negative); Source Nasopharynx
[2023-02-17 14:06] LABS: Lactate 2.5 mmol/L (0.6-1.4)
[2023-02-17] MEDS: cefTRIAXone 1 GM/50 ML BAG IVPB (14:19)
[2023-02-17] MEDS: dilTIAZem CD 300 MG CAPCR PO (14:19)
[2023-02-17] MEDS: predniSONE 5 MG TAB PO (14:45)
--- NOTE | 2023-02-17 14:57 | W.PM.HP.N ---
Date of service: 02/17/23 Time of Service: 14:57 Assessment and Plan Assessment and plan (1) UTI (urinary tract infection): Status: Acute Assessment and plan: Present on admission. Continue empiric ceftriaxone. Does have evidence of R hydronephrosis and nephrolithiasis on L on the US renal. C/s urology. Await blood and urine C&S. Hydrate intravenously. (2) Chronic atrial fibrillation with RVR: Status: Acute Assessment and plan: Combination of noncompliance with medications and HR being driven high by infection and dehydration. In the ICU on cardizem gtt, which we will attempt to wean with resumption of her home medications. IVF. Treat infection. c (3) LUTHER (acute kidney injury): Status: Acute Assessment and plan: In setting of dehydration, UTI, R hydronephrosis. Hydrate. Place a alfred catheter. Consult urology. Treat UTI. (4) Toxic metabolic encephalopathy: Status: Acute Assessment and plan: In setting of a UTI. Treat UTI. Monitor behaviors. (5) Type 2 diabetes mellitus with hyperglycemia: Status: Chronic Assessment and plan: I converted her home therapy to therapeutic equivalents available at our facility. Hydrate. No evidence of DKA. This is type 2 DM, not type 1 as I saw mentioned in our medical record. (6) DVT prophylaxis: Status: Acute Assessment and plan: On apixaban (7) Discharge planning issues: Status: Acute Assessment and plan: DNR as per my conversation with the patient and as witnessed by nursing. C/s palliative care and PT. Admit to the ICU. Total Critical Care Time 45 minutes. History of Present Illness History of Present Illness Chief Complaint: Confusion, concern for a UTI Narrative: Ms Chester is a 77 year old female with PMHx of frequent UTIs, Afib on eliquis, CHFpEF, T2DM, RA on prednisone, who is noncompliant with her medical therapy at baseline and was sent down to the ED from her urology clinic appointment where she was noted to have purulent urine, which was unable to have a urinalysis performed on, to not be feeling well, and to be more confused than her normal. She stated to the ER provider that she had not taken her medications and it's unclear when the last time was that she took them. She was accompanied to the urology appointment by her son-in-law, but it appears that he was not present for her ER visit and he is not here with her in the ICU now. In the ER, she was found to be in rapid Afib, has evidence of a UTI by UA, and has an LUTHER w/ a Cr of 1.8. She was treated with IV cardizem push of 15 mg, with HR coming down from 140s to 110-130s. She received ceftriaxone for her UTI. Hospitalist admission was requested. She is being admitted to the ICU. The patient's , who normally supervises her, is currently admitted at [facility] [place]. The patient states that she feels like s. She states her hands, wrists, arms hurt. She does not remember the last time she took prednisone. She states that she not been taking her medications for an unknown number of days. She states her usually reminds her to take her insulin. She cannot tell me the last time she took it. She states that at home she had had urinary frequency and dysuria for a couple of days. She denies dizziness, CP, SOB, n/v, abdominal pain. Denies any recent falls. Review of Systems All systems reviewed & are unremarkable except as noted in HPI and below PFSH All Active Problems (Updated 02/17/23 @ 17:02 by Sapna Bro MD) Discharge planning issues (Acute) DVT prophylaxis (Acute) Type 2 diabetes mellitus with hyperglycemia (Chronic) Toxic metabolic encephalopathy (Acute) LUTHER (acute kidney injury) (Acute) Chronic atrial fibrillation with RVR (Acute) STEMI (ST elevation myocardial infarction) (Acute) COVID (Acute) Recurrent UTI (Acute) History of cervical cancer (Acute) Insomnia (Acute) Goals of care, counseling/discussion (Acute) Wheelchair dependent (Chronic) motorized Laceration of ankle, right (Acute) Fracture of toe of right foot (Acute) Cellulitis (Acute) Poorly controlled type 2 diabetes mellitus (Acute) UTI (urinary tract infection) (Acute) Hydronephrosis with renal calculous obstruction (Acute) Calculus of proximal right ureter (Acute) Diabetes (Chronic) Atrial fibrillation (Chronic) Hypokalemia (Chronic) Psychogenic polydipsia (Chronic) UTI (urinary tract infection) (Acute) Weakness (Acute) Adjustment disorder (Acute) Advance directive on file (Acute) Atrial fibrillation with RVR (Acute) Acute diastolic CHF (congestive heart failure) (Acute) Bilateral nephrolithiasis (Chronic) Steroid dependent (Chronic) IDDM (insulin dependent diabetes mellitus) (Chronic) Diarrhea (Acute) UTI (urinary tract infection) (Acute) Dehydration (Acute) Ureterolithiasis (Acute) Hyperglycemia (Acute) Hyperglycemia due to type 1 diabetes mellitus (Acute) Gastrointestinal bleeding (Acute) C. difficile colitis (Acute) Duodenal ulcer (Acute) Medical History (Updated 02/17/23 @ 17:02 by Sapna Bro MD) Palliative care patient Ambulatory dysfunction Obesity, morbid, BMI 40.0-49.9 Pulmonary hypertension mild Rheumatoid arthritis Rheumatoid arteritis Hx of hyperlipidemia HTN (hypertension) Diabetes Atrial fibrillation Surgical History History of cystoscopy History of hysterectomy Hx of cholecystectomy Family History Mother , in her late 60s from endometrial cancer Endometrial cancer Obesity Father , in his early 70s from alcoholic cirrhosis Alcohol abuse Cirrhosis, alcoholic Sister , in her early 70s from cervical cancer Cervical cancer Brother , age 60 from lung cancer Lung cancer Smoker Brother , age 50 from AIDS, history of IVDU AIDS IVDU (intravenous drug user) Brother , age 22 from suicide Suicide Brother , in psychiatric hospital ? COD IVDU (intravenous drug user) Daughter No problems noted. 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, 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, 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 Pets and animals: Yes Pets and animals: cat(s) and dog(s) Do you think of yourself as: straight/heterosexual Current gender identity: female What is your relationship status?: How often do you talk on the phone with friends or family?: twice per week How often do you get together with friends or relatives?: twice per week Panel score (0-1 are the most socially isolated patients): 2 What type of physical activity do you participate in: assisted ambulation and sedentary lifestyle Frequency: does not exercise Special terra needs: No Seatbelt use: always Water heater temp set <120 deg: Yes Working smoke detector in home: Yes Fire extinguisher in home: Yes Firearms in home: Yes Do you feel safe at home: Yes Do you feel safe in your relationship?: Yes Meds Allergies and Home Medications Allergies Allergy/AdvReac Type Severity Reaction Status Date / Time atorvastatin AdvReac Intermediate leg cramps Unverified 09/27/21 11:26 lisinopril AdvReac Intermediate cough Unverified 09/27/21 11:26 Home Medications Medication Instructions Recorded Confirmed Type pitavastatin calcium 2 mg tablet 1 mg PO DAILY 07/21/13 02/17/23 History (Livalo) prednisone 5 mg tablet 5 mg PO DAILY 07/21/13 02/17/23 History liraglutide 0.6 mg/0.1 mL (18 mg/3 1.8 mg SQ HS 12/23/16 02/17/23 History mL) subcutaneous pen injector ([employer]za 2-Tree) mecobalamin (vitamin B12) 1,000 1,000 mcg sublingual DAILY 12/23/16 02/17/23 History mcg disintegrating tablet,sublingual melatonin 10 mg capsule 10 mg PO HS 12/23/16 02/17/23 History multivitamin (Daily Value tablet) 1 ea PO DAILY 12/23/16 02/17/23 History diltiazem HCl 300 mg 300 mg PO DAILY #30 caps 10/10/18 02/17/23 Rx capsule,extended release 24 hr calcium carbonate 600 mg-vitamin 1 cap PO DAILY 11/09/19 02/17/23 History D3 5 mcg (200 unit) capsule (Calcium 600 + D(3)) coenzyme Q10 100 mg capsule 100 mg PO DAILY 11/09/19 02/17/23 History insulin lispro 200 unit/mL (3 mL) 30 unit subcut AC 11/09/19 02/17/23 History subcutaneous pen (Humalog KwikPen U-200 Insulin) vitamin B complex 1 tab PO DAILY 11/09/19 02/17/23 History pantoprazole 40 mg tablet,delayed 40 mg PO BID@0730,1999 #30 tabs 11/14/19 02/17/23 Rx release tamsulosin 0.4 mg capsule 0.4 mg PO DAILY #14 caps 03/18/20 02/17/23 Rx Saccharomyces boulardii 250 mg 250 mg PO BID #14 caps 10/16/20 02/17/23 Rx capsule (Florastor) colestipol 1 gram tablet 1 g PO BID 11/28/20 02/17/23 History ferrous fumarate 325 mg (106 mg 325 mg PO DAILY 11/28/20 02/17/23 History iron) tablet metformin 500 mg tablet 500 mg PO DAILY 11/28/20 02/17/23 History nystatin 100,000 unit/gram topical 1 applic topical TID 11/28/20 02/17/23 History cream mirtazapine 15 mg tablet 15 mg PO QHS #30 tabs 12/01/20 02/17/23 Rx apixaban 5 mg tablet (Eliquis) 2.5 mg PO BID 07/23/21 02/17/23 History bupropion HCl 100 mg tablet,12 hr 100 mg PO BID 07/23/21 02/17/23 History sustained-release (Wellbutrin SR) diphenhydramine HCl 50 mg capsule 50 mg PO QHS 07/23/21 02/17/23 History furosemide 20 mg tablet (Lasix) 20 mg PO DAILY 07/23/21 02/17/23 History insulin glargine U-300 conc 300 100 unit subcut DAILY 07/23/21 02/17/23 History unit/mL (1.5 mL) subcutaneous pen (Tou[employer] SoloStar U-300 Insulin) magnesium oxide 400 mg (241.3 mg 400 mg PO DAILY 07/23/21 02/17/23 History magnesium) tablet metoprolol succinate 200 mg 200 mg PO DAILY 07/23/21 02/17/23 History capsule sprinkle, ext. release 24 hr oxycodone 10 mg tablet 20 mg PO DAILY PRN 07/23/21 02/17/23 History trazodone 50 mg tablet 50 mg PO DAILY 07/23/21 02/17/23 History diltiazem HCl 300 mg 300 mg PO DAILY 09/27/21 02/17/23 History capsule,extended release 24 hr diphenhydramine HCl 50 mg capsule 50 mg PO DAILY 09/27/21 02/17/23 History nirmatrelvir 150 mg-ritonavir 100 150 tab PO BID 09/27/21 02/17/23 History mg tablets in a dose pack (Paxlovid) sulfamethoxazole 400 1 tab PO DAILY #90 tabs 02/12/23 02/17/23 Rx mg-trimethoprim 80 mg tablet Exam Narrative Exam Narrative: General: Pleasant impulsive female who is A&Ox3, but forgetful, appears comfortable in bed, on RA Neurological: A&Ox3, no focal deficits, forgetful Psychiatric: Impulsive, otherwise in good spirits, appropriate speech pattern/content Skin: Several old green echymoses on tibial surface L leg HEENT: Atraumatic, normocephalic, EOMI, dry MM, clear oropharynx, no submandibular or cervical lymphadenopathy, no goiter or jVD Cardiovascular: irregularly irregular rhythm, no m/r/g Lungs: faint crackles at B bases which appear improved with deep breathing Gastrointestinal: soft, nontender, nondistended Genitourinary: no alfred catheter yet, fungal-appearing erythema in the groin Extremities: nonpitting edema BLEs, trace pedal pulses B, no lesions on B feet, no c/c. Results Imaging Imaging Studies: CXR: No acute pulmonary findings. EKG: Afib, HR 144, no acute ischemia Labs 02/17/23 12:35 02/17/23 12:35 Labs: Laboratory Results - last 24 hr 02/17/23 02/17/23 02/17/23 12:35 12:50 12:54 WBC 6.64 RBC 4.59 Hgb 13.6 Hct 42.0 MCV 92 MCH 29.6 MCHC 32.4 RDW 13.7 Plt Count 412 H MPV 10.2 Immature Gran % 0.5 Neutrophils % 63.5 Lymphocytes % 22.6 Monocytes % 11.0 Eosinophils % 2.1 Basophils % 0.3 Nucleated RBC % 0.0 Absolute Neutrophils 4.22 Absolute Lymphocytes 1.50 Absolute Monocytes 0.73 Absolute Eosinophils 0.14 Absolute Basophils 0.02 PT 11.1 INR 1.1 APTT 31.7 VBG pH VBG pCO2 VBG pO2 VBG HCO3 VBG Total CO2 VBG O2 Saturation VBG Base Excess VBG Lactate Sodium 127 L Potassium 3.7 Chloride 93 L Carbon Dioxide 23.9 Anion Gap 10.1 BUN 13 Creatinine 1.6 H Est GFR (CKD-EPI 2020) 33.01 Glucose 633 H* Calcium 9.4 Magnesium 1.8 Total Bilirubin 0.5 AST 16 ALT 18 Alkaline Phosphatase 150 H Ammonia 13 Troponin I < 50 NT-Pro-B Natriuret Pep 2020 H Total Protein 7.9 Albumin 2.7 L Lipase 39 TSH 1.24 Urine Color Urine Clarity Urine pH Ur Specific [place] Urine Protein Urine Ketones Urine Blood Urine Nitrite Urine Bilirubin Urine Urobilinogen Ur Leukocyte Esterase Urine RBC Urine WBC Ur Epithelial Cells Urine Crystals Urine Bacteria Urine Mucus Ur Culture Indicated? Urine Glucose COVID-19 Source Nasopharynx SARS-CoV-2 (PCR) Negative Influenza Type A (PCR) Negative Influenza Type B (PCR) Negative RSV (PCR) Negative 02/17/23 02/17/23 02/17/23 13:02 13:10 14:00 WBC RBC Hgb Hct MCV MCH MCHC RDW Plt Count MPV Immature Gran % Neutrophils % Lymphocytes % Monocytes % Eosinophils % Basophils % Nucleated RBC % Absolute Neutrophils Absolute Lymphocytes Absolute Monocytes Absolute Eosinophils Absolute Basophils PT INR APTT VBG pH 7.31 VBG pCO2 53 H VBG pO2 27 VBG HCO3 27 VBG Total CO2 25 VBG O2 Saturation 44 VBG Base Excess 1 VBG Lactate 2.5 H* Sodium Potassium Chloride Carbon Dioxide Anion Gap BUN Creatinine Est GFR (CKD-EPI 2020) Glucose Calcium Magnesium Total Bilirubin AST ALT Alkaline Phosphatase Ammonia Troponin I NT-Pro-B Natriuret Pep Total Protein Albumin Lipase TSH Urine Color Yellow Urine Clarity Cloudy Urine pH 5.0 Ur Specific [place] 1.010 Urine Protein 30 H Urine Ketones Negative Urine Blood Moderate H Urine Nitrite Negative Urine Bilirubin Negative Urine Urobilinogen 0.2 Ur Leukocyte Esterase Small H Urine RBC 20-50 H Urine WBC 10-20 H Ur Epithelial Cells Not Applicable Urine Crystals Not Applicable Urine Bacteria Not Applicable Urine Mucus Not Applicable Ur Culture Indicated? Yes Urine Glucose 500 H COVID-19 Source SARS-CoV-2 (PCR) Influenza Type A (PCR) Influenza Type B (PCR) RSV (PCR) Last Vital Signs Temp 36.4 C L 02/17/23 12:33 Pulse 131 H 02/17/23 14:42 Resp 10 L 02/17/23 14:42 BP 138/82 02/17/23 14:42 Pulse Ox 96 02/17/23 12:33 Time Spent Time spent with Patient: 40-54 minutes Time was spent: preparing to see the patient(eg.review tests), obtaining and/or reviewing separately otained hiistory, ordering medications,tests, procedures, referring, communicating with other health home care aide, indepentently interpreting results, counseling the patient and care coordination
[2023-02-17] MEDS: Metoprolol 50 MG TAB PO ×2 (15:00→21:16)
[2023-02-17] MEDS: Insulin Glargine 300 UNITS/3 ML PEN 40 UNITS SC (15:20)
[2023-02-17] MEDS: Apixaban 2.5 MG TAB PO ×2 (15:21→21:17)
[2023-02-17] MEDS: Insulin Aspart 300 UNITS/3 ML PEN 30 UNITS SC (15:21)
--- NOTE | 2023-02-17 16:01 | W.PC.ACHO ---
Registration Status: REG ER Primary Language: Preferred Language: Irish ED Information & Data Chief Complaint GenMedical 02/17/23 13:01 Triage Note Pt shaky, diaphoretic- 02/17/23 12:26 started this morning, dysuria Medical / Surgical History (Last Updated 01/31/22 @ 13:50 by Annika RAMIREZ) Palliative care patient Ambulatory dysfunction Obesity, morbid, BMI 40.0-49.9 Pulmonary hypertension Rheumatoid arthritis Rheumatoid arteritis Hx of hyperlipidemia HTN (hypertension) Diabetes Atrial fibrillation (Last Reviewed 09/27/21 @ 16:57 by Vish Machuca MD) History of cystoscopy History of hysterectomy Hx of cholecystectomy Most Recent Vital Signs Temperature 36.4 C L 02/17/23 12:33 Temperature Source Oral 02/17/23 12:33 Pulse 116 H 02/17/23 15:01 Pulse 123 H 02/17/23 15:01 Respiratory Rate 15 02/17/23 15:01 Respiratory Effort Normal 02/17/23 12:32 Blood Pressure 115/99 H 02/17/23 15:01 Blood Pressure Mean 104 02/17/23 15:01 Pulse Oximetry 98 02/17/23 15:01 Oxygen Delivery Method Room Air 02/17/23 12:33 Oxygen Flow Rate 0 02/17/23 12:33 Pain Level 0 02/17/23 12:26 Allergies atorvastatin Adverse Reaction (Intermediate, Unverified 09/27/21 11:26) leg cramps lisinopril Adverse Reaction (Intermediate, Unverified 09/27/21 11:26) cough Precautions Isolation Standard precaution 02/17/23 12:31 Active Medications Generic Name Dose Route Start Last Admin Trade Name Teressa PRN Reason Stop Dose Admin Prednisone 5 mg 02/17/23 14:45 02/17/23 14:45 Prednisone 5 Mg Tab PO 5 mg DAILY ZORAIDA Administration IV IV Catheter Type [Left Peripheral IV Antecubital] IV Catheter Type [Right Peripheral IV Antecubital] IV Catheter Gauge [Left 18 Antecubital] IV Catheter Gauge [Right 18 Antecubital] Diagnostics 02/17/23 02/17/23 02/17/23 Range/Units 15:30 14:00 13:10 WBC (4.4-10.8) 10^3/uL RBC (3.93-5.22) 10^6/uL Hgb (11.2-15.7) g/dL Hct (36.0-46.0) % MCV (80-95) fL MCH (27.0-33.0) pg MCHC (32.0-36.0) % RDW (11.7-14.6) % Plt Count (130-400) 10^3/uL MPV (8.0-11.0) fL Immature Gran % Neutrophils % Lymphocytes % Monocytes % Eosinophils % Basophils % Nucleated RBC % (0.0-0.3) % Absolute Neutrophils (1.2-6.7) 10^3/uL Absolute Lymphocytes (1.2-3.4) 10^3/uL Absolute Monocytes (0.1-0.8) 10^3/uL Absolute Eosinophils (0.0-0.7) 10^3/uL Absolute Basophils (0.0-0.2) 10^3/uL PT (9.1-11.1) sec INR (0.9-1.1) APTT (23.6-32.8) sec VBG pH (7.31-7.41) VBG pCO2 (41-51) mmHg VBG pO2 mmHg VBG HCO3 (23-28) mmol/L VBG Total CO2 (24-29) mmol/L VBG O2 Saturation % VBG Base Excess (-2-3) mmol/L VBG Lactate 2.5 H* (0.6-1.4) mmol/L Sodium (136-145) mmol/L Potassium (3.5-5.1) mmol/L Chloride (98-107) mmol/L Carbon Dioxide (21.0-32.0) mmol/L Anion Gap (3-11) mmol/L BUN (7-18) mg/dL Creatinine (0.55-1.02) mg/dL Est GFR (CKD-EPI 2020) (mL/min/1.73m2) Glucose (74-106) mg/dL Serum Osmolality Calcium (8.5-10.1) mg/dL Magnesium (1.8-2.4) mg/dL Total Bilirubin (0.2-1.0) mg/dL AST (15-37) U/L ALT (14-59) U/L Alkaline Phosphatase (46-116) U/L Ammonia (11-32) umol/L Troponin I Pending (<or=60) ng/L NT-Pro-B Natriuret Pep (<300) pg/mL Total Protein (6.4-8.2) g/dL Albumin (3.4-5.0) g/dL Lipase (16-77) U/L TSH (0.36-3.74) uIU/mL Urine Color Yellow (Yellow) Urine Clarity Cloudy (Clear) Urine pH 5.0 (5-8) Ur Specific [place] 1.010 (1.005-1.025) Urine Protein 30 H (Negative) mg/dL Urine Ketones Negative (Negative) mg/dL Urine Blood Moderate H (Negative) Urine Nitrite Negative (Negative) Urine Bilirubin Negative (Negative) Urine Urobilinogen 0.2 (Up to 0.2) mg/dL Ur Leukocyte Esterase Small H (Negative) Urine RBC 20-50 H (0-2) HPF Urine WBC 10-20 H (0-5) HPF Ur Epithelial Cells Not Applicable Urine Crystals Not Applicable Urine Bacteria Not Applicable Urine Mucus Not Applicable Ur Culture Indicated? Yes Urine Osmolality Pending Urine Glucose 500 H (Negative) mg/dL COVID-19 Source SARS-CoV-2 (PCR) (Negative) Influenza Type A (PCR) (Negative) Influenza Type B (PCR) (Negative) RSV (PCR) (Negative) 02/17/23 02/17/23 02/17/23 Range/Units 13:02 12:54 12:50 WBC (4.4-10.8) 10^3/uL RBC (3.93-5.22) 10^6/uL Hgb (11.2-15.7) g/dL Hct (36.0-46.0) % MCV (80-95) fL MCH (27.0-33.0) pg MCHC (32.0-36.0) % RDW (11.7-14.6) % Plt Count (130-400) 10^3/uL MPV (8.0-11.0) fL Immature Gran % Neutrophils % Lymphocytes % Monocytes % Eosinophils % Basophils % Nucleated RBC % (0.0-0.3) % Absolute Neutrophils (1.2-6.7) 10^3/uL Absolute Lymphocytes (1.2-3.4) 10^3/uL Absolute Monocytes (0.1-0.8) 10^3/uL Absolute Eosinophils (0.0-0.7) 10^3/uL Absolute Basophils (0.0-0.2) 10^3/uL PT (9.1-11.1) sec INR (0.9-1.1) APTT (23.6-32.8) sec VBG pH 7.31 (7.31-7.41) VBG pCO2 53 H (41-51) mmHg VBG pO2 27 mmHg VBG HCO3 27 (23-28) mmol/L VBG Total CO2 25 (24-29) mmol/L VBG O2 Saturation 44 % VBG Base Excess 1 (-2-3) mmol/L VBG Lactate (0.6-1.4) mmol/L Sodium (136-145) mmol/L Potassium (3.5-5.1) mmol/L Chloride (98-107) mmol/L Carbon Dioxide (21.0-32.0) mmol/L Anion Gap (3-11) mmol/L BUN (7-18) mg/dL Creatinine (0.55-1.02) mg/dL Est GFR (CKD-EPI 2020) (mL/min/1.73m2) Glucose (74-106) mg/dL Serum Osmolality Calcium (8.5-10.1) mg/dL Magnesium (1.8-2.4) mg/dL Total Bilirubin (0.2-1.0) mg/dL AST (15-37) U/L ALT (14-59) U/L Alkaline Phosphatase (46-116) U/L Ammonia 13 (11-32) umol/L Troponin I (<or=60) ng/L NT-Pro-B Natriuret Pep (<300) pg/mL Total Protein (6.4-8.2) g/dL Albumin (3.4-5.0) g/dL Lipase (16-77) U/L TSH (0.36-3.74) uIU/mL Urine Color (Yellow) Urine Clarity (Clear) Urine pH (5-8) Ur Specific [place] (1.005-1.025) Urine Protein (Negative) mg/dL Urine Ketones (Negative) mg/dL Urine Blood (Negative) Urine Nitrite (Negative) Urine Bilirubin (Negative) Urine Urobilinogen (Up to 0.2) mg/dL Ur Leukocyte Esterase (Negative) Urine RBC (0-2) HPF Urine WBC (0-5) HPF Ur Epithelial Cells Urine Crystals Urine Bacteria Urine Mucus Ur Culture Indicated? Urine Osmolality Urine Glucose (Negative) mg/dL COVID-19 Source Nasopharynx SARS-CoV-2 (PCR) Negative (Negative) Influenza Type A (PCR) Negative (Negative) Influenza Type B (PCR) Negative (Negative) RSV (PCR) Negative (Negative) 02/17/23 Range/Units 12:35 WBC 6.64 (4.4-10.8) 10^3/uL RBC 4.59 (3.93-5.22) 10^6/uL Hgb 13.6 (11.2-15.7) g/dL Hct 42.0 (36.0-46.0) % MCV 92 (80-95) fL MCH 29.6 (27.0-33.0) pg MCHC 32.4 (32.0-36.0) % RDW 13.7 (11.7-14.6) % Plt Count 412 H (130-400) 10^3/uL MPV 10.2 (8.0-11.0) fL Immature Gran % 0.5 Neutrophils % 63.5 Lymphocytes % 22.6 Monocytes % 11.0 Eosinophils % 2.1 Basophils % 0.3 Nucleated RBC % 0.0 (0.0-0.3) % Absolute Neutrophils 4.22 (1.2-6.7) 10^3/uL Absolute Lymphocytes 1.50 (1.2-3.4) 10^3/uL Absolute Monocytes 0.73 (0.1-0.8) 10^3/uL Absolute Eosinophils 0.14 (0.0-0.7) 10^3/uL Absolute Basophils 0.02 (0.0-0.2) 10^3/uL PT 11.1 (9.1-11.1) sec INR 1.1 (0.9-1.1) APTT 31.7 (23.6-32.8) sec VBG pH (7.31-7.41) VBG pCO2 (41-51) mmHg VBG pO2 mmHg VBG HCO3 (23-28) mmol/L VBG Total CO2 (24-29) mmol/L VBG O2 Saturation % VBG Base Excess (-2-3) mmol/L VBG Lactate (0.6-1.4) mmol/L Sodium 127 L (136-145) mmol/L Potassium 3.7 (3.5-5.1) mmol/L Chloride 93 L (98-107) mmol/L Carbon Dioxide 23.9 (21.0-32.0) mmol/L Anion Gap 10.1 (3-11) mmol/L BUN 13 (7-18) mg/dL Creatinine 1.6 H (0.55-1.02) mg/dL Est GFR (CKD-EPI 2020) 33.01 (mL/min/1.73m2) Glucose 633 H* (74-106) mg/dL Serum Osmolality Pending Calcium 9.4 (8.5-10.1) mg/dL Magnesium 1.8 (1.8-2.4) mg/dL Total Bilirubin 0.5 (0.2-1.0) mg/dL AST 16 (15-37) U/L ALT 18 (14-59) U/L Alkaline Phosphatase 150 H (46-116) U/L Ammonia (11-32) umol/L Troponin I < 50 (<or=60) ng/L NT-Pro-B Natriuret Pep 2020 H (<300) pg/mL Total Protein 7.9 (6.4-8.2) g/dL Albumin 2.7 L (3.4-5.0) g/dL Lipase 39 (16-77) U/L TSH 1.24 (0.36-3.74) uIU/mL Urine Color (Yellow) Urine Clarity (Clear) Urine pH (5-8) Ur Specific [place] (1.005-1.025) Urine Protein (Negative) mg/dL Urine Ketones (Negative) mg/dL Urine Blood (Negative) Urine Nitrite (Negative) Urine Bilirubin (Negative) Urine Urobilinogen (Up to 0.2) mg/dL Ur Leukocyte Esterase (Negative) Urine RBC (0-2) HPF Urine WBC (0-5) HPF Ur Epithelial Cells Urine Crystals Urine Bacteria Urine Mucus Ur Culture Indicated? Urine Osmolality Urine Glucose (Negative) mg/dL COVID-19 Source SARS-CoV-2 (PCR) (Negative) Influenza Type A (PCR) (Negative) Influenza Type B (PCR) (Negative) RSV (PCR) (Negative) 02/17/23 13:10 Urine Culture - Pending Urine - Reflex from Ua 02/17/23 13:05 Blood Culture - Pending Blood 02/17/23 12:50 Blood Culture - Pending Blood [id number] Documentation Fingerstick Glucose Start: 02/17/23 12:36 Freq: Status: Active Protocol: Activity Type Activity Date Activity User E-sign Co-sign Detail Recorded Client Recorded Date Recorded By Document 02/17/23 15:06 BKG DAEMON(3) [id number] 02/17/23 15:06 BKG DAEMON(4) Intake and Output - 24 Hour Total 02/17/23 12:22 thru 02/17/23 15:00 Intake Total 300 Balance 300 Weight 108.8 kg Intake: IV 300 Falls Risk Assessment History of Falls Previous History 02/17/23 12:32 Contributing Factors Unstable 02/17/23 12:32 Ambulatory Aids Uses ambulatory device 02/17/23 12:32 Tubes/Lines None 02/17/23 12:32 Gait Evaluation No gait disturbance 02/17/23 12:32 Cognition No cognitive impairment 02/17/23 12:32 Fall Total Score 33 02/17/23 12:32 Level of Risk Moderate Risk 02/17/23 12:32 Problems (Last Updated 01/31/22 @ 13:50 by Annika RAMIREZ) Toxic metabolic encephalopathy (Acute) LUTHER (acute kidney injury) (Acute) Chronic atrial fibrillation with RVR (Acute) UTI (urinary tract infection) (Acute) Hyperglycemia due to type 1 diabetes mellitus (Acute) v v v v v v v v v Sending and/or Receiving Nurses: Please use comment section below to note any information pertinent to the patient hand-off not included above. Information / Comments: Report received from: Zully Frey RN
[2023-02-17 16:03] LABS: Troponin I < 50 ng/L (<or=60)
[2023-02-17] MEDS: Lactated Ringers 1,000 ML 100 ML IV (18:17)
[2023-02-17 18:51] LABS: Anion Gap 9.4 mmol/L (3-11); BUN 12 mg/dL (7-18); CO2 24.6 mmol/L (21.0-32.0); CREATININE 1.3 mg/dL (0.55-1.02); Calcium 9.1 mg/dL (8.5-10.1); Chloride 97 mmol/L (98-107); Estimated GFR 42.35 (mL/min/1.73m2); Glucose 202 mg/dL (74-106); Sodium 131 mmol/L (136-145)
[2023-02-17] MEDS: Insulin Aspart 300 UNITS/3 ML PEN SC (18:52)
[2023-02-17 19:00] LABS: Lab Add On Test DONE
[2023-02-17 19:13] LABS: Magnesium 1.6 mg/dL (1.8-2.4)
[2023-02-17] MEDS: buPROPion-CR 100 MG TABCR PO (21:17)
[2023-02-17] MEDS: Pantoprazole 40 MG TABCR PO (21:17)
[2023-02-17] MEDS: diphenhydrAMINE 25 MG CAP 50 MG PO (22:30)
[2023-02-17] MEDS: Mirtazapine 15 MG TAB PO (22:30)
[2023-02-17] MEDS: Acetaminophen 325 MG TAB PO (22:31)
[2023-02-17] MEDS: oxyCODONE 10 MG TAB 20 MG PO (22:32)
[2023-02-17] MEDS: Melatonin 3 MG TAB 9 MG PO (22:32)
[2023-02-17] MEDS: traZODone 50 MG TAB PO (22:32)
[2023-02-17] MEDS: MAGNESIUM SULFATE 2 GM/50 ML BAG IVPB (22:35)
[2023-02-17] MEDS: Miconazole 2% Topical Powder 85 GM BTL TP (22:38)
[2023-02-17] MEDS: Miconazole 2% Topical Powder 85 GM BTL (22:40)
[2023-02-17] MEDS: Normal Saline Flush 10 ML SYR IVP (22:50)
[2023-02-17 23:21] LABS: Osmolality, Urine 478 mOsm/kg (150-1150)
[2023-02-17 23:23] LABS: Osmolality Serum 303 mOsm/kg (275-295)
[2023-02-18] VITALS (26 sets, daily range): BP systolic 98–124; BP diastolic 60–70; PULSE 73–93; RESP 9–20; TEMP 36.6–37; O2SAT 14–97
[2023-02-18] MEDS: Metoprolol 50 MG TAB PO (02:28)
[2023-02-18 07:08] LABS: Abs Immature Grans 0.02 10^3/uL (0.0-0.06); Absolute Basophil Count 0.02 10^3/uL (0.0-0.2); Absolute Eosinophil Count 0.18 10^3/uL (0.0-0.7); Absolute Lymphocyte Count 1.55 10^3/uL (1.2-3.4); Absolute Monocyte Count 0.71 10^3/uL (0.1-0.8); Absolute Neutrophil Count 3.93 10^3/uL (1.2-6.7); Basophils % 0.3; Eosinophils % 2.8; HCT 37.8 % (36.0-46.0); HGB 12.4 g/dL (11.2-15.7); Immature Grans % 0.3; Lymphocytes % 24.2; MCH 29.8 pg (27.0-33.0); MCHC 32.8 % (32.0-36.0); MCV 91 fL (80-95); MPV 9.9 fL (8.0-11.0); Monocytes % 11.1; Neutrophils % 61.3; Platelet Count 352 10^3/uL (130-400); RBC 4.16 10^6/uL (3.93-5.22); RDW 13.8 % (11.7-14.6); RDW-SD 46.3 fL; WBC 6.41 10^3/uL (4.4-10.8)
--- NOTE | 2023-02-18 07:11 | NUR.NOTE ---
Accessed chart to determine orders for EKG and to determine whether or not one needs to be cancelled. Duplicate order. Order cancelled. Nursing Note:
--- NOTE | 2023-02-18 07:12 | W.UROLOGYCON ---
Date of service: 02/18/23 Time of Service: 16:00 Assessment and Plan Assessment and plan (1) Hydronephrosis with renal calculous obstruction: Status: Acute Assessment and plan: We again discussed surgical treatment for her ureteral stone and the fact that the stone may be contributing to recurrent urinary tract infections. She again tells me that she has no interest whatsoever in going to another facility to have a procedure done, but she would consider the procedure if it could be done here at [facility]. I will again reach out to her our anesthesia colleagues. With no sign of urosepsis, I would consider her procedure to be elective (especially since her stone was first identified about a year ago). If she is not a candidate for surgery and anesthesia at our facility, we will continue with the prophylactic dose of antibiotics. History of Present Illness History of Present Illness Chief Complaint: Right ureteral stone Narrative: This is a 77-year-old woman who is known to our practice because of her history of kidney stones and urinary tract infections. When her urine cultures have been positive for bacteria, she tends to grow Klebsiella. Her last urologic surgical procedure occurred in 2019. Her stone analysis at that time is copied below. She has had persistent right hydronephrosis and a right ureteral stone for the past year. We initially had her scheduled for ureteroscopy over a year ago when she developed an AL and was no longer considered an anesthesia candidate at our facility. She refused a referral to any outside institution and eventually told us that she was not interested in any type of surgical procedure. As an alternative to definitive treatment, we started her on a prophylactic antibiotic. She presented to our office yesterday stating that she did not feel well. She could not really articulate specific symptoms, but she seemed more confused and had an elevated serum glucose level. Her urinalysis was concerning for another infection. Her PCP office relayed that the patient is quite noncompliant and the patient herself was not able to tell us which medicines she was actually taking. She was referred down to the emergency department. Since her admission, her mental status has improved and her overall clinical picture is much, much better. She is not really having any right flank pain. She again tells me that she is not interested in going to another facility to have a stone procedure done, especially if she is not symptomatic. She would consider having the procedure done here at [facility] if she was felt to be a surgical/anesthesia candidate. RUN DATE: 02/18/23 [facility] PAGE 1 RUN TIME: [address] RUN USER: [place] [address] Laney Whaley MD,PhD PATIENT REPORT PATIENT: Elizabeth Chester LOC: [facility] U #: [id number] /SX: [id number] F ROOM: RE12/13/[address]: COLLIN GONZALEZ MD STATUS: DEP [facility] [place] BED: DIS: SPEC #: [id number] CARROL: 12/13/19 STATUS: COMP REQ #: [id number] RECD: 12/13/[address]: COLLIN GONZALEZ MD ENTERED: 12/13/[address]: VERONICA SKINNER MD FAX #: ORDERED: Stone Anaylsis COMMENTS: SOURCE: RIGHT KIDNEY AND RIGHT URETERAL QUERIES: Source: Right Kidney Test Result Flag Reference Verified Kidney Stone Analysis Source: Right Kidney 12/22/19 Interpretation See Comment 12/22/19 60% Calcium oxalate monohydrate 30% Uric acid 10% Calcium oxalate dihydrate Test Performed by: [facility] [address] [place] [address] Occupational Therapy Assist: David Logan M.D. 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 No thyroid dysfunction Shortness of breath with exertion patient. No hemoptysis Atrial fibrillation. No chest pain Complaining of diarrhea. No nausea, vomiting, hepatitis, ulcers, jaundice No seizures, strokes No bleeding disorders or anemia No gout PFSH All Active Problems (Updated 02/20/23 @ 00:05 by JOSÉ MANUEL LEARY) Mild cognitive impairment (Acute) Non-adherence to medical treatment (Acute) Advanced care planning/counseling discussion (Acute) Type 2 diabetes mellitus with hyperglycemia (Chronic) STEMI (ST elevation myocardial infarction) (Acute) COVID (Acute) Recurrent UTI (Acute) History of cervical cancer (Acute) Insomnia (Acute) Goals of care, counseling/discussion (Acute) Wheelchair dependent (Chronic) motorized Laceration of ankle, right (Acute) Fracture of toe of right foot (Acute) Cellulitis (Acute) Poorly controlled type 2 diabetes mellitus (Acute) UTI (urinary tract infection) (Acute) Hydronephrosis with renal calculous obstruction (Acute) Calculus of proximal right ureter (Acute) Diabetes (Chronic) Atrial fibrillation (Chronic) Hypokalemia (Chronic) Psychogenic polydipsia (Chronic) UTI (urinary tract infection) (Acute) Weakness (Acute) Adjustment disorder (Acute) Advance directive on file (Acute) Atrial fibrillation with RVR (Acute) Acute diastolic CHF (congestive heart failure) (Acute) Bilateral nephrolithiasis (Chronic) Steroid dependent (Chronic) IDDM (insulin dependent diabetes mellitus) (Chronic) Diarrhea (Acute) UTI (urinary tract infection) (Acute) Dehydration (Acute) Ureterolithiasis (Acute) Hyperglycemia (Acute) Hyperglycemia due to type 1 diabetes mellitus (Acute) Gastrointestinal bleeding (Acute) C. difficile colitis (Acute) Duodenal ulcer (Acute) Medical History Palliative care patient Ambulatory dysfunction Obesity, morbid, BMI 40.0-49.9 Pulmonary hypertension mild Rheumatoid arthritis Rheumatoid arteritis Hx of hyperlipidemia HTN (hypertension) Diabetes Atrial fibrillation Surgical History History of cystoscopy History of hysterectomy Hx of cholecystectomy Family History Mother , in her late 60s from endometrial cancer Endometrial cancer Obesity Father , in his early 70s from alcoholic cirrhosis Alcohol abuse Cirrhosis, alcoholic Sister , in her early 70s from cervical cancer Cervical cancer Brother , age 60 from lung cancer Lung cancer Smoker Brother , age 50 from AIDS, history of IVDU AIDS IVDU (intravenous drug user) Brother , age 22 from suicide Suicide Brother , in psychiatric hospital ? COD IVDU (intravenous drug user) Daughter No problems noted. 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, 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, 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, 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 Pets and animals: Yes Pets and animals: cat(s) and dog(s) Do you think of yourself as: straight/heterosexual Current gender identity: female What is your relationship status?: How often do you talk on the phone with friends or family?: twice per week How often do you get together with friends or relatives?: twice per week Panel score (0-1 are the most socially isolated patients): 2 What type of physical activity do you participate in: assisted ambulation and sedentary lifestyle Frequency: does not exercise Special terra needs: No Seatbelt use: always Water heater temp set <120 deg: Yes Working smoke detector in home: Yes Fire extinguisher in home: Yes Firearms in home: Yes Do you feel safe at home: Yes Do you feel safe in your relationship?: Yes Exam Narrative Exam Narrative: She is an obese woman who does not appear septic or toxic at this time Her vital signs are documented elsewhere There is no CVA tenderness Her abdomen is obese but soft with no mass She is awake and alert I reviewed her renal ultrasound along with her CT scan from last year. Her ultrasound on admission shows persistent right hydronephrosis but both ureteral jets could be seen. Her CT from last year showed right hydronephrosis with dilation of the ureter down to a stone in the pelvis. Results Last Vital Signs Temp 36.7 C 02/18/23 04:30 Pulse 88 02/18/23 02:30 Resp 9 L 02/18/23 06:40 BP 124/70 02/18/23 06:15 Pulse Ox 91 L 02/18/23 06:40 Labs 02/19/23 06:03 02/19/23 06:03 Labs: Laboratory Results - last 24 hr 02/17/23 02/17/23 02/17/23 12:35 12:50 12:54 WBC 6.64 RBC 4.59 Hgb 13.6 Hct 42.0 MCV 92 MCH 29.6 MCHC 32.4 RDW 13.7 Plt Count 412 H MPV 10.2 Immature Gran % 0.5 Neutrophils % 63.5 Lymphocytes % 22.6 Monocytes % 11.0 Eosinophils % 2.1 Basophils % 0.3 Nucleated RBC % 0.0 Absolute Neutrophils 4.22 Absolute Lymphocytes 1.50 Absolute Monocytes 0.73 Absolute Eosinophils 0.14 Absolute Basophils 0.02 PT 11.1 INR 1.1 APTT 31.7 VBG pH VBG pCO2 VBG pO2 VBG HCO3 VBG Total CO2 VBG O2 Saturation VBG Base Excess VBG Lactate Sodium 127 L Potassium 3.7 Chloride 93 L Carbon Dioxide 23.9 Anion Gap 10.1 BUN 13 Creatinine 1.6 H Est GFR (CKD-EPI 2020) 33.01 Glucose 633 H* Calcium 9.4 Magnesium 1.8 Total Bilirubin 0.5 AST 16 ALT 18 Alkaline Phosphatase 150 H Ammonia 13 Troponin I < 50 NT-Pro-B Natriuret Pep 2020 H Total Protein 7.9 Albumin 2.7 L Lipase 39 TSH 1.24 Urine Color Urine Clarity Urine pH Ur Specific [place] Urine Protein Urine Ketones Urine Blood Urine Nitrite Urine Bilirubin Urine Urobilinogen Ur Leukocyte Esterase Urine RBC Urine WBC Ur Epithelial Cells Urine Crystals Urine Bacteria Urine Mucus Ur Culture Indicated? Urine Glucose COVID-19 Source Nasopharynx SARS-CoV-2 (PCR) Negative Influenza Type A (PCR) Negative Influenza Type B (PCR) Negative RSV (PCR) Negative Add-On Test Request 02/17/23 02/17/23 02/17/23 13:02 13:10 14:00 WBC RBC Hgb Hct MCV MCH MCHC RDW Plt Count MPV Immature Gran % Neutrophils % Lymphocytes % Monocytes % Eosinophils % Basophils % Nucleated RBC % Absolute Neutrophils Absolute Lymphocytes Absolute Monocytes Absolute Eosinophils Absolute Basophils PT INR APTT VBG pH 7.31 VBG pCO2 53 H VBG pO2 27 VBG HCO3 27 VBG Total CO2 25 VBG O2 Saturation 44 VBG Base Excess 1 VBG Lactate 2.5 H* Sodium Potassium Chloride Carbon Dioxide Anion Gap BUN Creatinine Est GFR (CKD-EPI 2020) Glucose Calcium Magnesium Total Bilirubin AST ALT Alkaline Phosphatase Ammonia Troponin I NT-Pro-B Natriuret Pep Total Protein Albumin Lipase TSH Urine Color Yellow Urine Clarity Cloudy Urine pH 5.0 Ur Specific [place] 1.010 Urine Protein 30 H Urine Ketones Negative Urine Blood Moderate H Urine Nitrite Negative Urine Bilirubin Negative Urine Urobilinogen 0.2 Ur Leukocyte Esterase Small H Urine RBC 20-50 H Urine WBC 10-20 H Ur Epithelial Cells Not Applicable Urine Crystals Not Applicable Urine Bacteria Not Applicable Urine Mucus Not Applicable Ur Culture Indicated? Yes Urine Glucose 500 H COVID-19 Source SARS-CoV-2 (PCR) Influenza Type A (PCR) Influenza Type B (PCR) RSV (PCR) Add-On Test Request 02/17/23 02/17/23 02/17/23 15:30 18:15 18:59 WBC RBC Hgb Hct MCV MCH MCHC RDW Plt Count MPV Immature Gran % Neutrophils % Lymphocytes % Monocytes % Eosinophils % Basophils % Nucleated RBC % Absolute Neutrophils Absolute Lymphocytes Absolute Monocytes Absolute Eosinophils Absolute Basophils PT INR APTT VBG pH VBG pCO2 VBG pO2 VBG HCO3 VBG Total CO2 VBG O2 Saturation VBG Base Excess VBG Lactate Sodium 131 L Potassium 4.0 Chloride 97 L Carbon Dioxide 24.6 Anion Gap 9.4 BUN 12 Creatinine 1.3 H Est GFR (CKD-EPI 2020) 42.35 Glucose 202 H Calcium 9.1 Magnesium 1.6 L Total Bilirubin AST ALT Alkaline Phosphatase Ammonia Troponin I < 50 NT-Pro-B Natriuret Pep Total Protein Albumin Lipase TSH Urine Color Urine Clarity Urine pH Ur Specific [place] Urine Protein Urine Ketones Urine Blood Urine Nitrite Urine Bilirubin Urine Urobilinogen Ur Leukocyte Esterase Urine RBC Urine WBC Ur Epithelial Cells Urine Crystals Urine Bacteria Urine Mucus Ur Culture Indicated? Urine Glucose COVID-19 Source SARS-CoV-2 (PCR) Influenza Type A (PCR) Influenza Type B (PCR) RSV (PCR) Add-On Test Request DONE
[2023-02-18 07:29] LABS: Anion Gap 7.4 mmol/L (3-11); BUN 12 mg/dL (7-18); CO2 26.6 mmol/L (21.0-32.0); CREATININE 1.2 mg/dL (0.55-1.02); Calcium 9.1 mg/dL (8.5-10.1); Chloride 101 mmol/L (98-107); Estimated GFR 46.62 (mL/min/1.73m2); Glucose 107 mg/dL (74-106); Magnesium 2.2 mg/dL (1.8-2.4); Potassium 3.7 mmol/L (3.5-5.1); Sodium 135 mmol/L (136-145)
[2023-02-18] MEDS: Pantoprazole 40 MG TABCR PO ×2 (07:31→21:19)
[2023-02-18 08:11] LABS: Hemoglobin A1C 9.8 % (<5.7)
--- NOTE | 2023-02-18 09:10 | PDOC.CMIN ---
Date of service: 02/18/23 Time of Service: 09:10 Care Management Initial Assmt Initial Assessment REASON FOR HOSPITALIZATION:: UTI PREVIOUS FUNCTIONAL STATUS/SOCIAL/FAMILY SUPPORTS:: Elizabeth lives in an apartment in [facility] with her Delmis. She has one daughter who lives locally and several grandchildren, many of whom live out of state. Elizabeth is disabled secondary to rheumatoid arthritis and has been wheelchair bound for the past 7 years. Elizabeth has [facility] highest needs. She has hired housekeepers through [employer] that come twice a week. Elizabeth is independent with ADLs, does her own cooking and some of her own shopping. CURRENT FUNCTIONAL STATUS:: Elizabeth was sitting up in bed when CM met with her. She was pleasant and agreeable to conversation. Elizabeth informed CM that she is well supported at home with equipment and housekeepers. She is quite independent given the nature of her disability and intends to return home when discharged. Elizabeth did agree to have new home health nursing services for medication management. When questioned, she admitted that she sometimes does not take her medications as prescribed. She did state that after this hospitalization, she believes she will do better. ADVANCE DIRECTIVES:: none on file Has patient been provided with info about the portal/API?: Yes Did the patient sign up for the portal?: Yes CODE STATUS:: DNR INSURANCE COVERAGE / FINANCIAL ISSUES:: Medicare Medicaid CURRENT HOME/COMMUNITY SERVICES/EQUIPMENT:: Electric wheelchair, shower chair, grab bars PRIMARY CARE PHYSICIAN:: Marleen Wraren POTENTIAL DISCHARGE NEEDS:: follow up with PCP and plan of care PATIENT/FAMILY EDUCATION NEEDS:: Review of discharge instructions, limitations, activity, follow up plan, discuss Ask me Three TRANSPORTATION:: to be determined by disposition PLAN:: Anticipate Elizabeth will be discharged home, possibly with new home health services, when medically cleared. She will follow up with her PCP and plan of care and transport with family. CM to follow and assess for discharge planning concerns. PFSH All Active Problems (Updated 02/18/23 @ 14:20 by Evonne Medellin MD) Mild cognitive impairment (Acute) Non-adherence to medical treatment (Acute) Advanced care planning/counseling discussion (Acute) Discharge planning issues (Acute) DVT prophylaxis (Acute) Type 2 diabetes mellitus with hyperglycemia (Chronic) Toxic metabolic encephalopathy (Acute) LUTHER (acute kidney injury) (Acute) Chronic atrial fibrillation with RVR (Acute) STEMI (ST elevation myocardial infarction) (Acute) COVID (Acute) Recurrent UTI (Acute) History of cervical cancer (Acute) Insomnia (Acute) Goals of care, counseling/discussion (Acute) Wheelchair dependent (Chronic) motorized Laceration of ankle, right (Acute) Fracture of toe of right foot (Acute) Cellulitis (Acute) Poorly controlled type 2 diabetes mellitus (Acute) UTI (urinary tract infection) (Acute) Hydronephrosis with renal calculous obstruction (Acute) Calculus of proximal right ureter (Acute) Diabetes (Chronic) Atrial fibrillation (Chronic) Hypokalemia (Chronic) Psychogenic polydipsia (Chronic) UTI (urinary tract infection) (Acute) Weakness (Acute) Adjustment disorder (Acute) Advance directive on file (Acute) Atrial fibrillation with RVR (Acute) Acute diastolic CHF (congestive heart failure) (Acute) Bilateral nephrolithiasis (Chronic) Steroid dependent (Chronic) IDDM (insulin dependent diabetes mellitus) (Chronic) Diarrhea (Acute) UTI (urinary tract infection) (Acute) Dehydration (Acute) Ureterolithiasis (Acute) Hyperglycemia (Acute) Hyperglycemia due to type 1 diabetes mellitus (Acute) Gastrointestinal bleeding (Acute) C. difficile colitis (Acute) Duodenal ulcer (Acute) Medical History (Updated 02/18/23 @ 14:20 by Evonne Medellin MD) Palliative care patient Ambulatory dysfunction Obesity, morbid, BMI 40.0-49.9 Pulmonary hypertension mild Rheumatoid arthritis Rheumatoid arteritis Hx of hyperlipidemia HTN (hypertension) Diabetes Atrial fibrillation Surgical History History of cystoscopy History of hysterectomy Hx of cholecystectomy Family History Mother , in her late 60s from endometrial cancer Endometrial cancer Obesity Father , in his early 70s from alcoholic cirrhosis Alcohol abuse Cirrhosis, alcoholic Sister , in her early 70s from cervical cancer Cervical cancer Brother , age 60 from lung cancer Lung cancer Smoker Brother , age 50 from AIDS, history of IVDU AIDS IVDU (intravenous drug user) Brother , age 22 from suicide Suicide Brother , in psychiatric hospital ? COD IVDU (intravenous drug user) Daughter No problems noted. 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, 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, 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, 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 Pets and animals: Yes Pets and animals: cat(s) and dog(s) Do you think of yourself as: straight/heterosexual Current gender identity: female What is your relationship status?: How often do you talk on the phone with friends or family?: twice per week How often do you get together with friends or relatives?: twice per week Panel score (0-1 are the most socially isolated patients): 2 What type of physical activity do you participate in: assisted ambulation and sedentary lifestyle Frequency: does not exercise Special terra needs: No Seatbelt use: always Water heater temp set <120 deg: Yes Working smoke detector in home: Yes Fire extinguisher in home: Yes Firearms in home: Yes Do you feel safe at home: Yes Do you feel safe in your relationship?: Yes
--- NOTE | 2023-02-18 09:26 | PGE_ITS ---
Date of Service Date of service: 02/18/23 Time of Service: 10:36 Assessment and Plan Assessment and plan (1) UTI (urinary tract infection): Status: Acute Assessment and plan: Present on admission. blood cultures are pending. Urine c&S with mixed gram positive shantanu. Continue empiric ceftriaxone. Does have evidence of R hydronephrosis and nephrolithiasis on L on the US renal. Await urology recommendations. Await blood and urine C&S. Finished IVF. (2) Chronic atrial fibrillation with RVR: Status: Acute Assessment and plan: Combination of noncompliance with medications and HR being driven high by infection and dehydration. back on her home therapy and currently rate controlled. Continue toprol XL and cardizem CD as well as anticoagulation. (3) LUTHER (acute kidney injury): Status: Acute Assessment and plan: In setting of dehydration, UTI, R hydronephrosis. Await urology consultation. Cr is much better. IVF discontinued. Treat UTI. (4) Toxic metabolic encephalopathy: Status: Acute Assessment and plan: In setting of a UTI. Treat UTI. Monitor behaviors. (5) Type 2 diabetes mellitus with hyperglycemia: Status: Chronic Assessment and plan: I converted her home therapy to therapeutic equivalents available at our facility, but the blood sugars would not tolerate her home regimen, therefore suggesting that she does not take her insulin at home as prescribed (if at all). I have deescalated her insulin therapy. Continue to monitor BGs on basal bolus insulin (lantus 30 units QHS and moderate sliding scale aspart). (6) DVT prophylaxis: Status: Acute Assessment and plan: On apixaban (7) Discharge planning issues: Status: Acute Assessment and plan: DNR as per my conversation with the patient and as witnessed by nursing. Palliative care and PT consulted. Transferred out of the ICU. Subjective Subjective Interval history since last seen: Ms Chester is feeling better. She got off of cardizem gtt yesterday evening. Denies dizziness, CP, SOB, n/v. States the alfred catheter is killing me. She did not receive evening lantus because her fingerstick glucose was 101 last night. It is 106 this am. Downgraded to medical surgical floor. Exam Narrative Exam Narrative: General: Pleasant impulsive female who is A&Ox3, appears comfortable in bed, on RA, looks better HEENT: EOMI, dry MM Cardiovascular: irregularly irregular rhythm, + SANTI Lungs: CTAB Gastrointestinal: soft, nontender, nondistended Genitourinary: has a alfred Extremities: nonpitting edema BLEs, trace pedal pulses B, no lesions on B feet, no c/c. Objective Last Vital Signs Temp 36.6 C 02/18/23 08:38 Pulse 91 H 02/18/23 08:38 Resp 14 02/18/23 08:38 BP 120/62 02/18/23 08:38 Pulse Ox 97 02/18/23 08:15 Laboratory Results - last 24 hr 02/17/23 02/17/23 02/17/23 12:35 12:50 12:54 WBC 6.64 RBC 4.59 Hgb 13.6 Hct 42.0 MCV 92 MCH 29.6 MCHC 32.4 RDW 13.7 Plt Count 412 H MPV 10.2 Immature Gran % 0.5 Neutrophils % 63.5 Lymphocytes % 22.6 Monocytes % 11.0 Eosinophils % 2.1 Basophils % 0.3 Nucleated RBC % 0.0 Absolute Neutrophils 4.22 Absolute Lymphocytes 1.50 Absolute Monocytes 0.73 Absolute Eosinophils 0.14 Absolute Basophils 0.02 PT 11.1 INR 1.1 APTT 31.7 VBG pH VBG pCO2 VBG pO2 VBG HCO3 VBG Total CO2 VBG O2 Saturation VBG Base Excess VBG Lactate Sodium 127 L Potassium 3.7 Chloride 93 L Carbon Dioxide 23.9 Anion Gap 10.1 BUN 13 Creatinine 1.6 H Est GFR (CKD-EPI 2020) 33.01 Glucose 633 H* Hemoglobin A1c Serum Osmolality 303 H Calcium 9.4 Magnesium 1.8 Total Bilirubin 0.5 AST 16 ALT 18 Alkaline Phosphatase 150 H Ammonia 13 Troponin I < 50 NT-Pro-B Natriuret Pep 2020 H Total Protein 7.9 Albumin 2.7 L Lipase 39 TSH 1.24 Urine Color Urine Clarity Urine pH Ur Specific [place] Urine Protein Urine Ketones Urine Blood Urine Nitrite Urine Bilirubin Urine Urobilinogen Ur Leukocyte Esterase Urine RBC Urine WBC Ur Epithelial Cells Urine Crystals Urine Bacteria Urine Mucus Ur Culture Indicated? Urine Osmolality Urine Glucose COVID-19 Source Nasopharynx SARS-CoV-2 (PCR) Negative Influenza Type A (PCR) Negative Influenza Type B (PCR) Negative RSV (PCR) Negative Add-On Test Request 02/17/23 02/17/23 02/17/23 13:02 13:10 14:00 WBC RBC Hgb Hct MCV MCH MCHC RDW Plt Count MPV Immature Gran % Neutrophils % Lymphocytes % Monocytes % Eosinophils % Basophils % Nucleated RBC % Absolute Neutrophils Absolute Lymphocytes Absolute Monocytes Absolute Eosinophils Absolute Basophils PT INR APTT VBG pH 7.31 VBG pCO2 53 H VBG pO2 27 VBG HCO3 27 VBG Total CO2 25 VBG O2 Saturation 44 VBG Base Excess 1 VBG Lactate 2.5 H* Sodium Potassium Chloride Carbon Dioxide Anion Gap BUN Creatinine Est GFR (CKD-EPI 2020) Glucose Hemoglobin A1c Serum Osmolality Calcium Magnesium Total Bilirubin AST ALT Alkaline Phosphatase Ammonia Troponin I NT-Pro-B Natriuret Pep Total Protein Albumin Lipase TSH Urine Color Yellow Urine Clarity Cloudy Urine pH 5.0 Ur Specific [place] 1.010 Urine Protein 30 H Urine Ketones Negative Urine Blood Moderate H Urine Nitrite Negative Urine Bilirubin Negative Urine Urobilinogen 0.2 Ur Leukocyte Esterase Small H Urine RBC 20-50 H Urine WBC 10-20 H Ur Epithelial Cells Not Applicable Urine Crystals Not Applicable Urine Bacteria Not Applicable Urine Mucus Not Applicable Ur Culture Indicated? Yes Urine Osmolality 478 Urine Glucose 500 H COVID-19 Source SARS-CoV-2 (PCR) Influenza Type A (PCR) Influenza Type B (PCR) RSV (PCR) Add-On Test Request 02/17/23 02/17/23 02/17/23 15:30 18:15 18:59 WBC RBC Hgb Hct MCV MCH MCHC RDW Plt Count MPV Immature Gran % Neutrophils % Lymphocytes % Monocytes % Eosinophils % Basophils % Nucleated RBC % Absolute Neutrophils Absolute Lymphocytes Absolute Monocytes Absolute Eosinophils Absolute Basophils PT INR APTT VBG pH VBG pCO2 VBG pO2 VBG HCO3 VBG Total CO2 VBG O2 Saturation VBG Base Excess VBG Lactate Sodium 131 L Potassium 4.0 Chloride 97 L Carbon Dioxide 24.6 Anion Gap 9.4 BUN 12 Creatinine 1.3 H Est GFR (CKD-EPI 2020) 42.35 Glucose 202 H Hemoglobin A1c Serum Osmolality Calcium 9.1 Magnesium 1.6 L Total Bilirubin AST ALT Alkaline Phosphatase Ammonia Troponin I < 50 NT-Pro-B Natriuret Pep Total Protein Albumin Lipase TSH Urine Color Urine Clarity Urine pH Ur Specific [place] Urine Protein Urine Ketones Urine Blood Urine Nitrite Urine Bilirubin Urine Urobilinogen Ur Leukocyte Esterase Urine RBC Urine WBC Ur Epithelial Cells Urine Crystals Urine Bacteria Urine Mucus Ur Culture Indicated? Urine Osmolality Urine Glucose COVID-19 Source SARS-CoV-2 (PCR) Influenza Type A (PCR) Influenza Type B (PCR) RSV (PCR) Add-On Test Request DONE 02/18/23 02/18/23 06:05 08:17 WBC 6.41 RBC 4.16 Hgb 12.4 Hct 37.8 MCV 91 MCH 29.8 MCHC 32.8 RDW 13.8 Plt Count 352 MPV 9.9 Immature Gran % 0.3 Neutrophils % 61.3 Lymphocytes % 24.2 Monocytes % 11.1 Eosinophils % 2.8 Basophils % 0.3 Nucleated RBC % 0.0 Absolute Neutrophils 3.93 Absolute Lymphocytes 1.55 Absolute Monocytes 0.71 Absolute Eosinophils 0.18 Absolute Basophils 0.02 PT INR APTT VBG pH VBG pCO2 VBG pO2 VBG HCO3 VBG Total CO2 VBG O2 Saturation VBG Base Excess VBG Lactate 1.0 Sodium 135 L Potassium 3.7 Chloride 101 Carbon Dioxide 26.6 Anion Gap 7.4 BUN 12 Creatinine 1.2 H Est GFR (CKD-EPI 2020) 46.62 Glucose 107 H Hemoglobin A1c 9.8 H Serum Osmolality Calcium 9.1 Magnesium 2.2 Total Bilirubin AST ALT Alkaline Phosphatase Ammonia Troponin I NT-Pro-B Natriuret Pep Total Protein Albumin Lipase TSH Urine Color Urine Clarity Urine pH Ur Specific [place] Urine Protein Urine Ketones Urine Blood Urine Nitrite Urine Bilirubin Urine Urobilinogen Ur Leukocyte Esterase Urine RBC Urine WBC Ur Epithelial Cells Urine Crystals Urine Bacteria Urine Mucus Ur Culture Indicated? Urine Osmolality Urine Glucose COVID-19 Source SARS-CoV-2 (PCR) Influenza Type A (PCR) Influenza Type B (PCR) RSV (PCR) Add-On Test Request Time Spent with Patient Time Spent with Patient: 35-49 minutes Time was spent: preparing to see the patient(eg.review tests), obtaining and/or reviewing separately otained hiistory, ordering medications,tests, procedures, referring, communicating with other health nursing care attendant, indepentently interpreting results, counseling the patient and care coordination
[2023-02-18] MEDS: predniSONE 5 MG TAB PO (09:29)
[2023-02-18] MEDS: Cyanocobalamin 500 MCG TAB 1000 MCG PO (09:29)
[2023-02-18] MEDS: Metoprolol CR 100 MG TABCR 200 MG PO (09:30)
[2023-02-18] MEDS: Calcium 600mg/Vit D 200U TAB 1 TAB PO (09:30)
[2023-02-18] MEDS: buPROPion-CR 100 MG TABCR PO ×2 (09:30→21:18)
[2023-02-18] MEDS: Colestipol 1 GM TAB PO ×2 (09:31→21:19)
[2023-02-18] MEDS: Ferrous Sulfate 325 MG TAB PO (09:31)
[2023-02-18] MEDS: Multivitamin TAB 1 TAB PO (09:31)
[2023-02-18] MEDS: Tamsulosin 0.4 MG CAPCR PO (09:31)
[2023-02-18] MEDS: Magnesium Oxide 400 MG TAB PO (09:31)
[2023-02-18] MEDS: Vitamins B Comp w/C TAB 1 TAB PO (09:32)
[2023-02-18] MEDS: Apixaban 2.5 MG TAB PO ×2 (09:32→21:19)
--- NOTE | 2023-02-18 09:49 | IN_ITS ---
PT Notes Visit Reasons: UTI, Rapid Afib, Hyperglycemia, Dehydration Physical Therapy Inpatient Initial Evaluation Date: 02/18/2023 Referring Doctor: Sapna Bro MD PT Orders: PT CONSULT: Limited ability Precautions: Fall. Standard. Activity as tolerated. Patient Profile/Admitting Diagnosis: Elizabeth is a 77-year-old female who presented to the ED due to increasing confusion, pus in urine, and medication non-compliance. She id admitted at ICU [facility] for management of UTI, chroninc AF, LUTHER, toxic metabolic encephalopathy, and type II DM. PMHX: All Active Problems (Updated 02/17/23 @ 17:02 by Sapna Bro MD) Discharge planning issues (Acute) DVT prophylaxis (Acute) Type 2 diabetes mellitus with hyperglycemia (Chronic) Toxic metabolic encephalopathy (Acute) LUTHER (acute kidney injury) (Acute) Chronic atrial fibrillation with RVR (Acute) STEMI (ST elevation myocardial infarction) (Acute) COVID (Acute) Recurrent UTI (Acute) History of cervical cancer (Acute) Insomnia (Acute) Goals of care, counseling/discussion (Acute) Wheelchair dependent (Chronic) motorized Laceration of ankle, right (Acute) Fracture of toe of right foot (Acute) Cellulitis (Acute) Poorly controlled type 2 diabetes mellitus (Acute) UTI (urinary tract infection) (Acute) Hydronephrosis with renal calculous obstruction (Acute) Calculus of proximal right ureter (Acute) Diabetes (Chronic) Atrial fibrillation (Chronic) Hypokalemia (Chronic) Psychogenic polydipsia (Chronic) UTI (urinary tract infection) (Acute) Weakness (Acute) Adjustment disorder (Acute) Advance directive on file (Acute) Atrial fibrillation with RVR (Acute) Acute diastolic CHF (congestive heart failure) (Acute) Bilateral nephrolithiasis (Chronic) Steroid dependent (Chronic) IDDM (insulin dependent diabetes mellitus) (Chronic) Diarrhea (Acute) UTI (urinary tract infection) (Acute) Dehydration (Acute) Ureterolithiasis (Acute) Hyperglycemia (Acute) Hyperglycemia due to type 1 diabetes mellitus (Acute) Gastrointestinal bleeding (Acute) C. difficile colitis (Acute) Duodenal ulcer (Acute) Medical History (Updated 02/17/23 @ 17:02 by Sapna Bro MD) Palliative care patient Ambulatory dysfunction Obesity, morbid, BMI 40.0-49.9 Pulmonary hypertension mildRheumatoid arthritis Rheumatoid arteritis Hx of hyperlipidemia HTN (hypertension) Diabetes Atrial fibrillation Surgical History History of cystoscopy History of hysterectomy Hx of cholecystectomy Social History/Home Situation: Lives with in a prviate home with no steps to enter. Modified independent with stand pivot and maryse-step transfers while holding onto armrests/edge of bed. Main mode of mobility indoors and outdoors is her motorized wheelchair. Able to prepare meals and do independent self-care. Equipment Owned/DME: Motorized wheelchair, handicap-accessible home, FWW, SPC Subjective: Verbalizes being at baseline mobility level and in need of no PT services. She is where she needs to be with transfers, remains being in pain in B knees and hips with weight bearing due to chronic arthritis. Her goal is to get better medically and go home. Does not want any HH PT services. Objective: General Observation: Supine in bed. High BMI. Telemetry monitoring in place. Connell catheter in place. Nurse Kourtney kelsey out med to patient at start of session. Mental Status: Alert and oriented as to person, place, time, and purpose. Able to pay attention, focus, and respond appropriately. Pain: Chronic moderate to severe pain in B hips and knees with weight bearing Vital Signs: Closely monitored via tele ROM: Right Upper Extremity: Shoulder Flexion WFL. Shoulder abduction WFL. Elbow flexion WFL. Wrist flexion WFL. Functional opening and closing of hand WFL. Left Upper Extremity: Shoulder Flexion WFL. Shoulder abduction WFL. Elbow flexion WFL. Wrist flexion WFL. Functional opening and closing of hand WFL. Right Lower Extremity: Hip flexion WFL. Hip abduction WFL. Knee flexion 30 degrees to 90 degrees. Knee extension -30 degrees. Ankle dorsiflexion to neutral only. Ankle plantarflexion WFL. Left Lower Extremity: Hip flexion WFL. Hip abduction WFL. Knee flexion 30 degrees to 90 degrees. Knee extension -30 degrees. Ankle dorsiflexion to neutral only. Ankle plantarflexion WFL. Strength: Right Upper Extremity: Shoulder flexors 4/5. Shoulder abductors 4/5. Elbow flexors 4/5. Elbow extensors 4/5. Cash Applications Representative strong. Left Upper Extremity: Shoulder flexors 4/5. Shoulder abductors 4/5. Elbow flexors 4/5. Elbow extensors 4/5. Cash Applications Representative strong. Right Lower Extremity: Hip flexors 4-/5. Hip abductors 4-/5. Knee flexors 3-/5. Knee extensors 3-/5. Ankle dorsiflexors 3-/5. Ankle plantarflexors 3/5. Left Lower Extremity: Hip flexors 4-/5. Hip abductors 4-/5. Knee flexors 3-/5. Knee extensors 3-/5. Ankle dorsiflexors 3-/5. Ankle plantarflexors 3/5. Bed Mobility/Transfers: Rolling independent Supine to sit independent with HOB at 30 degrees Sit to supine independent but with report of pain in B hips and knees Sit to stand set up assist only to allow patient to push down at edge of bed and hold onto chair armrest for support Stand to sit set up assist only to allow patient to push down at edge of bed and hold onto chair armrest for support Bed to reclining chair set up assist only to allow patient to push down at edge of bed and hold onto chair armrest for support Reclining chair to bed set up assist only to allow patient to push down at edge of bed and hold onto chair armrest for support Gait: N/A. Patient wheelchair-bound and has been non-ambulatory. Balance: Static Sitting: Normal Dynamic Sitting: Normal Static Standing: Poor Dynamic Standing: Poor Special Tests: Mobility Limitations Standardized Measure [facility]-P[facility] 6 clicks Basic Mobility Inpatient Short Form: Raw Score: 18 CMS Score: 47% deficit Informed Consent/Education: Patient was instructed in purpose of PT consult and plan of care. Declines PT services as patient is at baseline mobility level. ASSESSMENT: Patient requires set up assist for this session to ensure that chair is placed close enough so she can push down at edge of bed and onto chair armrest to stand up. Remains in pain in B hips and knees due to chronic arthritis compounded by by high BMI. At home, she is able to park her motorized wheelchair close enough to provide adequate support that allows the most minimal time for weight bearing. has all the equipment she needs at home. Patient presents with clinical signs and symptoms consistent with current/admitting diagnoses that have resulted to mobility limitations, gait instability, generalized weakness, and overall ADL decline as demonstrated by the following impairment level findings: 1. Decreased strength to b UE/LE major muscle groups (chronic) 2. Impaired sitting/standing balance 3. Impaired activity tolerance 4. Limitation of joint range of motion in B knees and ankles due to arthritis 5. Moderate to severe pain in B hips and knees with weight bearing due to chronic arthritis Impairments are contributing to the following functional limitations: 1. Uses motorized wheelchair for all mobility to minimize pain in B hips and knees from OA Patient is [place] a [id number] moderate complexity based on the following: History: 77-year-old female with past medical history as indicated above Examination: Demonstrable impairment in strength, balance, and mobility level with underlying impairments and functional limitations as exhibited above as well as deficit score of 47% utilizing the [facility] Mobility Inpatient Short Form Presentation: Stable Decision Makin moderate complexity Goals: N/A. PT evalaution only per patient request. At baseline mobility level. Plan of Care/Treatment Plan: N/A. PT evalaution only per patient request. At baseline mobility level. DISCHARGE RECOMMENDATIONS: [X] Home with no services. HOme when medically cleared by hospitalist. [] Home with services [specify] [] Home with outpatient PT [] [] SNF for continued rehabilitation [] [] [facility] [] [] SNF versus LTC based on ability to participate and progress [] TREATMENT CODE/TIME: 99680 x 20 minutes for 1 unit beginning at 9:28 AM. Thank you for the opportunity to participate in the care of this patient. Serenity Dumas PT, DPT, CLT [facility] [place], [place]
[2023-02-18] MEDS: Insulin Aspart 300 UNITS/3 ML PEN SC ×3 (11:53→21:17)
--- NOTE | 2023-02-18 12:09 | W.PALLCONSUL ---
Date of service: 02/18/23 Time of Service: 12:37 History of Present Illness Narrative: Ms. Chester is a 77 yo woman from [facility] who has a history of poorly controlled type 2 diabetes,Chronic atrial fibrillation, ASCVD with history of TN, recurrent UTIs with history of urosepsis (on antibiotic prophylaxis long-term), rheumatoid arthritis (steroid-dependent, wheelchair dependent), chronic kidney stone with secondary hydronephrosis, BUCK. She was admitted to [facility] yesterday with an acute UTI and very high blood sugars. Patient previously met with Palliative Care Team in 2019 during hospital admission. No subsequent PCT follow-up that I see in chart. Palliative care consulted today to review goals of care, confirm CODE STATUS and help with discharge planning. Patient has a long history of issues with medication adherence. As per several notes in her chart, Ms. Chester likely has some mild cognitive impairment. In the past someone has been coming into the house to help set up pillboxes once a week for her and her , but this stopped a month ago and that person left her job. Patient reports that occasionally reminds her to take her medications, but he has also been missing medications. He was admitted to [facility] within the last week with a medical problem that sounds like worsening CHF (she thinks because he was forgetting to take his medications) interesting to note that she had regular annual follow-up with urology last week and was noted that the Bactrim she was taking daily had prevented her from getting a UTI. However, in retrospect she was not taking any of her medications including her insulin and apparently her antibiotic. She presented to the ED yesterday with confusion and dysuria. Noted to be quite tachycardic (admits to not taking her diltiazem) with blood sugar of 633 (admitted to not taking her insulin recently) as well as significant pyuria (admitted to not taking her antibiotics) -She takes all her medications in the evening. Any medication she is supposed to take in the morning and in the evening, she takes both pills in the evening. For example, she takes both of her DOAC pills at night. -She estimates that she remembers to take her insulin about twice a week. - called from [facility] to remind her to take Victoza last . -There was someone coming in from Home Health to set up her and her 's pill boxes. Toyin mercado , patient is not sure where she was from (see A/P, not from [facility]). This lady left her position and no one has replaced her. Patient has not been putting pills in the pillbox herself. When I proposed having daughter set up her pills, pt says daughter would not do it for them Too busy. Care Team: Primary Care physician: Dr. Warren Urology: Dr. Fernandez and Lindy Rainey Social HX: Lives in [facility] with Delmis (Jorge). Handicapped accessible apartment. Ambulates with motorized wheelchair. Wheelchair does not leave the house. Daughter Zahida lives in [facility], 4 grandchildren (1 ). Her had 5 children (1 and they are estranged from the others). Her best friend of 70 years just . Brother's just (also a good friend, brother long ago, other sibs are ) drives. She has not been able to drive since being in (6-7 years). She and go shopping. One dog and two cats at home (daughter is feeding them while they are both in the hospital) HObbies: jewelry, knits , paints, jigsaw puzzles, chores, watch TV with Addl services: -Has [facility] for [facility], phone call to [facility], they confirmed that they are her lining caser, although the person who was her lining caser did leave the several months ago and no new permanent cad manager has been assigned. They are unaware of anyone called Toyin Jesus , (the person who patient says was coming in weekly to set up her pillboxes) Licensed Massage Practitioner comes in from [facility] twice a week. cad manager from either [facility] or [facility] (this woman recently quit and she is not sure who new person is). -Has lifeline - Impression of currents health status: I didn't realize there was anything wrong with me. Overall I'm fine. is second nature to me, I don't think about it anymore. What bothers you the most: Nothing really, except that she is here in the hospital What worries you the most: Worries about the animals while she is in the hospital, they being taken care of? Goals: Being able to take care of the animals To go home. Current information preferences: N/A Function: Ambulation: Can stand and pivot. Otherwise ambulates in Power chair. ADLs: Totally independent. Tub Chair. Independent with all transfers iADLs: Can do some chores. She cooks, she does the bills. Hearing:Pretty good Vision:Has always needed glasses. Cognition: Poor memory over the last year only, not sure why. Forgets what people tell her. Falls: None Palliative Performance Scale % Ambulation Activity and Evidence of Disease Self Care Intake Level of Consciousness 100 Full Normal activity, no evidence of disease Full Normal Full 90 Full Normal activity, some evidence of disease Full Normal Full 80 Full Normal activity with effort, some evidence of disease Full Normal or reduced Full 70 Reduced Unable to do normal work, some evidence of disease Full Normal or reduced Full 60 Reduced Unable to do hobby or some housework, significant disease Occasional assist necessary Normal or reduced Full or confusion 50 Mainly sit/lie Unable to do any work, extensive disease Considerable assistance required Normal or reduced Full or confusion 40 Mainly in bed Unable to do any work, extensive disease Mainly assistance Normal or reduced Full, drowsy, or confusion 30 Totally bed bound Unable to do any work, extensive disease Total care Reduced Full, drowsy, or confusion 20 Totally bed bound Unable to do any work, extensive disease Total care Minimal sips Full, drowsy, or confusion 10 Totally bed bound Unable to do any work, extensive disease Total care Mouth care only Drowsy or coma 0 - - - - Patient Score: 70 Spiritual history:Used to go to [employer]. Does not go caodaism since needing WC. Prayer helpd (and she does pray). Palliative review of systems: Pain: Hands, ankles feet tend to be worst. Knees can be affected too. Pain got worse when she forgot to take the prednisone. She was taking oxycodone. Dyspnea: None GI symptoms: None Appetite: Pretty good Depression: Stressed with illness Anxiety: None Emotional Distress: Spiritual/Existential Distress: Advanced Care Planning: Advanced Directive: None Health Care Agent: [facility] would be Jorge Chester and alternate would be Zahida Zavala (daughter). She does NOT want to fill out an [facility] form, explained why this would be helpful. Cannot explain why she does not want to fill out form and signed today. COLST: Code Status listed as DNR, trial intubation. NO COLST on file. Patient says she does not want CPR but does want to be intubated, treated, transferred, tests and bloodwork. Limitations: Assessment and Plan Assessment and plan (1) Palliative care patient: Assessment and plan: Elizabeth Palm is a 77-year-old woman with multiple medical problems including steroid-dependent RA, poorly controlled diabetes, recurrent UTIs and history of urosepsis. Medication adherence: As per staff history, she does have a long history of med nonadherence. She does have Choices for [facility], with [facility] as lining caser; personal conversation with home health nurse who previously worked with patient and her ; this is ongoing issue for years. -as per patient, somebody named Toyin mercado was coming in weekly to set up both her and her 's medications. This person left the job 4 weeks ago and no one has come in since to take over this position. phone call to [employer], this is not their employee. I did not call Jason (who provides lapidary apprentice 2 days a week) to see if this person is from their agency. Patient points out that both she and her were not taking her medications as regularly (less so than before) since this person is no longer coming in and now they have both had to be admitted to the hospital. -Even before they lost their medications support person, she says she took both her morning meds and her evening meds in the evening together, easy to remember that way. Somewhat vague about how often she was actually taking her medication but does admit to not taking any of her medications since her was admitted to the hospital, including her prednisone (which she knows makes her feel better) -She estimates that she has been taking her insulin twice a week. She did take her Victoza this week because her called to remind her to take it. -Staff reports that her sometimes reminds her to take medicine. But she points out that he ended up in the hospital this week because he did not take his medication either. Recommend: -Patient counseled during my visit today using motivational interviewing techniques. Discussed her goal to be able to take care of her animals. Need to stay out of the hospital by taking medications to keep blood sugar under 300, pulse in reasonable range and prevent UTIs. Patient tells me that it is beginning to become apparent to me that I need to take the medications, I thought I did not need them . Given patient's long history of not taking medication, unclear if pattern will change. -Recommend pill packs and once a day dosing of all medications, in the evening (as preferred by patient) -Simplify regimen to once a day medication regimen: Note that patient is taking both doses of DOAC together in the evening. Certainly it would be safer for her to take a once a day DOAC, even if more expensive, or slightly less efficacious. Could also consider discontinuing some vitamin's and supplements to prevent her having to take too many pills in the evening. Switch bupropion to once daily XR dosing (likely she is only taking 1 dose a day anyhow) unfortunately might contribute to insomnia (I see she takes diphenhydramine every night for this). Several of her medicines are optimally taken in the morning, but it seems like this is not possible for her, even when she understands the reason to take them in the morning. -Both short and long-acting insulin on her list. Sounds like she is not using the short acting (and not checking blood sugars at all for a long time). Sounds like she was actually using a CGM, somehow it did not get refilled. PCP could discuss resuming with her if it motivated her. Increase prescribed insulin doses cautiously in response to high A1c's, as it is more likely she is not taking the prescribed insulin amount (rather than not being prescribed adequate dose). -Diphenhydramine 50 mg taken every night: This medication is the animal science instructor child medication of the Beer's List (medications to avoid in geriatric patients). Recommend trying to taper down and discontinue due to potential side effects. -Patient needs a stable lining caser back on board. Interesting to note that her blood sugar was in pretty good control for a year from July 2021 through August 2022 under 9 %. In this was the time during which she had a stable lining caser through [facility]. Prior to that A1c usually over 9% and occasionally much higher. Advance care planning: Goals as stated in history. Patient wants to be at home to care for her animals, her and her household, continue to do her chores. She thinks she would be okay with living in a assisted but there is no other alternative I would be okay with that, people would take care of me for change . Reviewed her previous request for DNR/DNI. We discussed the procedure of CPaR, actual mechanical process, rate of success in restoring heartbeat, short and long-term side effects in survivors (including likely decreased physical and cognitive functioning). Questions were answered. Initially thought she would want CPR but then reconsidered and said that she would not want chest compressions done. She would want a trial of intubation. She continues to want to be transferred, treated, get antibiotics and IV fluids as needed. No previous COLST on record. COLST was completed today and filled out review selecting these requested goals of care. Regarding healthcare agent: She would want her Jroge Chester to make decisions for her if she could not. If Jorge was not unable or unwilling to do so, she would want her daughter Zahida to do this. However, she refuses to let me fill out a form for her today I do not like forms . (2) Advanced care planning/counseling discussion: Status: Acute (3) Non-adherence to medical treatment: Status: Acute (4) Type 2 diabetes mellitus with hyperglycemia: Status: Chronic (5) Chronic atrial fibrillation with RVR: Status: Acute (6) Recurrent UTI: Status: Acute (7) Goals of care, counseling/discussion: Status: Acute Assessment and plan: 16 to 30 minutes spent today on Advance Care Planning. Patient and family participated voluntarily. Advance care planning may include (not limited to) explanation and discussion of advance directives, choosing and appointing healthcare agents, alternatives to various ACP tools, discussion of (and if indicated, completion of) COLST form, discussion of patient's values and overall goals for treatment, palliative and disease directive care options, ways to avoid hospital readmission including hospice discussions, care preferences should the patient's several other adverse health events.See today's palliative care note for additional information. (8) Rheumatoid arthritis: (9) Mild cognitive impairment: Status: Acute PFSH All Active Problems (Updated 02/18/23 @ 14:20 by Evonne Medellin MD) Mild cognitive impairment (Acute) Non-adherence to medical treatment (Acute) Advanced care planning/counseling discussion (Acute) Discharge planning issues (Acute) DVT prophylaxis (Acute) Type 2 diabetes mellitus with hyperglycemia (Chronic) Toxic metabolic encephalopathy (Acute) LUTHER (acute kidney injury) (Acute) Chronic atrial fibrillation with RVR (Acute) STEMI (ST elevation myocardial infarction) (Acute) COVID (Acute) Recurrent UTI (Acute) History of cervical cancer (Acute) Insomnia (Acute) Goals of care, counseling/discussion (Acute) Wheelchair dependent (Chronic) motorized Laceration of ankle, right (Acute) Fracture of toe of right foot (Acute) Cellulitis (Acute) Poorly controlled type 2 diabetes mellitus (Acute) UTI (urinary tract infection) (Acute) Hydronephrosis with renal calculous obstruction (Acute) Calculus of proximal right ureter (Acute) Diabetes (Chronic) Atrial fibrillation (Chronic) Hypokalemia (Chronic) Psychogenic polydipsia (Chronic) UTI (urinary tract infection) (Acute) Weakness (Acute) Adjustment disorder (Acute) Advance directive on file (Acute) Atrial fibrillation with RVR (Acute) Acute diastolic CHF (congestive heart failure) (Acute) Bilateral nephrolithiasis (Chronic) Steroid dependent (Chronic) IDDM (insulin dependent diabetes mellitus) (Chronic) Diarrhea (Acute) UTI (urinary tract infection) (Acute) Dehydration (Acute) Ureterolithiasis (Acute) Hyperglycemia (Acute) Hyperglycemia due to type 1 diabetes mellitus (Acute) Gastrointestinal bleeding (Acute) C. difficile colitis (Acute) Duodenal ulcer (Acute) Medical History (Updated 02/18/23 @ 14:20 by Evonne Medellin MD) Palliative care patient Ambulatory dysfunction Obesity, morbid, BMI 40.0-49.9 Pulmonary hypertension mild Rheumatoid arthritis Rheumatoid arteritis Hx of hyperlipidemia HTN (hypertension) Diabetes Atrial fibrillation Surgical History History of cystoscopy History of hysterectomy Hx of cholecystectomy Family History Mother , in her late 60s from endometrial cancer Endometrial cancer Obesity Father , in his early 70s from alcoholic cirrhosis Alcohol abuse Cirrhosis, alcoholic Sister , in her early 70s from cervical cancer Cervical cancer Brother , age 60 from lung cancer Lung cancer Smoker Brother , age 50 from AIDS, history of IVDU AIDS IVDU (intravenous drug user) Brother , age 22 from suicide Suicide Brother , in psychiatric hospital ? COD IVDU (intravenous drug user) Daughter No problems noted. 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, 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, 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 Pets and animals: Yes Pets and animals: cat(s) and dog(s) Do you think of yourself as: straight/heterosexual Current gender identity: female What is your relationship status?: How often do you talk on the phone with friends or family?: twice per week How often do you get together with friends or relatives?: twice per week Panel score (0-1 are the most socially isolated patients): 2 What type of physical activity do you participate in: assisted ambulation and sedentary lifestyle Frequency: does not exercise Special terra needs: No Seatbelt use: always Water heater temp set <120 deg: Yes Working smoke detector in home: Yes Fire extinguisher in home: Yes Firearms in home: Yes Do you feel safe at home: Yes Do you feel safe in your relationship?: Yes Exam Narrative Exam Narrative: Pleasant, talkative elderly female lying in bed. Color is good. Speech is fluid. Full affect. Results Last Vital Signs Temp 36.6 C 02/18/23 08:38 Pulse 91 H 02/18/23 08:38 Resp 12 02/18/23 10:30 BP 120/62 02/18/23 08:38 Pulse Ox 97 02/18/23 08:15 Labs 02/18/23 06:05 02/18/23 06:05 Labs: Laboratory Results - last 24 hr 02/17/23 02/17/23 02/17/23 12:35 12:50 12:54 WBC 6.64 RBC 4.59 Hgb 13.6 Hct 42.0 MCV 92 MCH 29.6 MCHC 32.4 RDW 13.7 Plt Count 412 H MPV 10.2 Immature Gran % 0.5 Neutrophils % 63.5 Lymphocytes % 22.6 Monocytes % 11.0 Eosinophils % 2.1 Basophils % 0.3 Nucleated RBC % 0.0 Absolute Neutrophils 4.22 Absolute Lymphocytes 1.50 Absolute Monocytes 0.73 Absolute Eosinophils 0.14 Absolute Basophils 0.02 PT 11.1 INR 1.1 APTT 31.7 VBG pH VBG pCO2 VBG pO2 VBG HCO3 VBG Total CO2 VBG O2 Saturation VBG Base Excess VBG Lactate Sodium 127 L Potassium 3.7 Chloride 93 L Carbon Dioxide 23.9 Anion Gap 10.1 BUN 13 Creatinine 1.6 H Est GFR (CKD-EPI 2020) 33.01 Glucose 633 H* Hemoglobin A1c Serum Osmolality 303 H Calcium 9.4 Magnesium 1.8 Total Bilirubin 0.5 AST 16 ALT 18 Alkaline Phosphatase 150 H Ammonia 13 Troponin I < 50 NT-Pro-B Natriuret Pep 2020 H Total Protein 7.9 Albumin 2.7 L Lipase 39 TSH 1.24 Urine Color Urine Clarity Urine pH Ur Specific [place] Urine Protein Urine Ketones Urine Blood Urine Nitrite Urine Bilirubin Urine Urobilinogen Ur Leukocyte Esterase Urine RBC Urine WBC Ur Epithelial Cells Urine Crystals Urine Bacteria Urine Mucus Ur Culture Indicated? Urine Osmolality Urine Glucose COVID-19 Source Nasopharynx SARS-CoV-2 (PCR) Negative Influenza Type A (PCR) Negative Influenza Type B (PCR) Negative RSV (PCR) Negative Add-On Test Request 02/17/23 02/17/23 02/17/23 13:02 13:10 14:00 WBC RBC Hgb Hct MCV MCH MCHC RDW Plt Count MPV Immature Gran % Neutrophils % Lymphocytes % Monocytes % Eosinophils % Basophils % Nucleated RBC % Absolute Neutrophils Absolute Lymphocytes Absolute Monocytes Absolute Eosinophils Absolute Basophils PT INR APTT VBG pH 7.31 VBG pCO2 53 H VBG pO2 27 VBG HCO3 27 VBG Total CO2 25 VBG O2 Saturation 44 VBG Base Excess 1 VBG Lactate 2.5 H* Sodium Potassium Chloride Carbon Dioxide Anion Gap BUN Creatinine Est GFR (CKD-EPI 2020) Glucose Hemoglobin A1c Serum Osmolality Calcium Magnesium Total Bilirubin AST ALT Alkaline Phosphatase Ammonia Troponin I NT-Pro-B Natriuret Pep Total Protein Albumin Lipase TSH Urine Color Yellow Urine Clarity Cloudy Urine pH 5.0 Ur Specific [place] 1.010 Urine Protein 30 H Urine Ketones Negative Urine Blood Moderate H Urine Nitrite Negative Urine Bilirubin Negative Urine Urobilinogen 0.2 Ur Leukocyte Esterase Small H Urine RBC 20-50 H Urine WBC 10-20 H Ur Epithelial Cells Not Applicable Urine Crystals Not Applicable Urine Bacteria Not Applicable Urine Mucus Not Applicable Ur Culture Indicated? Yes Urine Osmolality 478 Urine Glucose 500 H COVID-19 Source SARS-CoV-2 (PCR) Influenza Type A (PCR) Influenza Type B (PCR) RSV (PCR) Add-On Test Request 02/17/23 02/17/23 02/17/23 15:30 18:15 18:59 WBC RBC Hgb Hct MCV MCH MCHC RDW Plt Count MPV Immature Gran % Neutrophils % Lymphocytes % Monocytes % Eosinophils % Basophils % Nucleated RBC % Absolute Neutrophils Absolute Lymphocytes Absolute Monocytes Absolute Eosinophils Absolute Basophils PT INR APTT VBG pH VBG pCO2 VBG pO2 VBG HCO3 VBG Total CO2 VBG O2 Saturation VBG Base Excess VBG Lactate Sodium 131 L Potassium 4.0 Chloride 97 L Carbon Dioxide 24.6 Anion Gap 9.4 BUN 12 Creatinine 1.3 H Est GFR (CKD-EPI 2020) 42.35 Glucose 202 H Hemoglobin A1c Serum Osmolality Calcium 9.1 Magnesium 1.6 L Total Bilirubin AST ALT Alkaline Phosphatase Ammonia Troponin I < 50 NT-Pro-B Natriuret Pep Total Protein Albumin Lipase TSH Urine Color Urine Clarity Urine pH Ur Specific [place] Urine Protein Urine Ketones Urine Blood Urine Nitrite Urine Bilirubin Urine Urobilinogen Ur Leukocyte Esterase Urine RBC Urine WBC Ur Epithelial Cells Urine Crystals Urine Bacteria Urine Mucus Ur Culture Indicated? Urine Osmolality Urine Glucose COVID-19 Source SARS-CoV-2 (PCR) Influenza Type A (PCR) Influenza Type B (PCR) RSV (PCR) Add-On Test Request DONE 02/18/23 02/18/23 06:05 08:17 WBC 6.41 RBC 4.16 Hgb 12.4 Hct 37.8 MCV 91 MCH 29.8 MCHC 32.8 RDW 13.8 Plt Count 352 MPV 9.9 Immature Gran % 0.3 Neutrophils % 61.3 Lymphocytes % 24.2 Monocytes % 11.1 Eosinophils % 2.8 Basophils % 0.3 Nucleated RBC % 0.0 Absolute Neutrophils 3.93 Absolute Lymphocytes 1.55 Absolute Monocytes 0.71 Absolute Eosinophils 0.18 Absolute Basophils 0.02 PT INR APTT VBG pH VBG pCO2 VBG pO2 VBG HCO3 VBG Total CO2 VBG O2 Saturation VBG Base Excess VBG Lactate 1.0 Sodium 135 L Potassium 3.7 Chloride 101 Carbon Dioxide 26.6 Anion Gap 7.4 BUN 12 Creatinine 1.2 H Est GFR (CKD-EPI 2020) 46.62 Glucose 107 H Hemoglobin A1c 9.8 H Serum Osmolality Calcium 9.1 Magnesium 2.2 Total Bilirubin AST ALT Alkaline Phosphatase Ammonia Troponin I NT-Pro-B Natriuret Pep Total Protein Albumin Lipase TSH Urine Color Urine Clarity Urine pH Ur Specific [place] Urine Protein Urine Ketones Urine Blood Urine Nitrite Urine Bilirubin Urine Urobilinogen Ur Leukocyte Esterase Urine RBC Urine WBC Ur Epithelial Cells Urine Crystals Urine Bacteria Urine Mucus Ur Culture Indicated? Urine Osmolality Urine Glucose COVID-19 Source SARS-CoV-2 (PCR) Influenza Type A (PCR) Influenza Type B (PCR) RSV (PCR) Add-On Test Request
[2023-02-18] MEDS: Lactated Ringers 250 ML IV (12:42)
--- NOTE | 2023-02-18 12:56 | W.NUTRFU ---
Date of service: 02/18/23 Time of Service: 12:30 Nutrition Note NOTE: Pt consult generated for diabetes education Ms Chester is 77yo female admitted for LUTHER, Chronic Afib, toxic metabolic encephalopathy with glucose >600 on admission, UTI and DMII with hyperglycemia. PT is wheelchair dependent. She is laying in bed upon visit and pleasant in conversation. She states food quality is fair to good and her appetite has been improving. She is ordered for heart healthy, consistent CHO diet with normal consistencies and reports no food allergies or special dietary needs while in the hospital. She reports that her nuclear powerplant mechanic helper does most of the grocery shopping at home and Elizabeth does most of the cooking. Her also has diabetes. She reports that she reports noncompliance with glucose testing and taking diabetes meds at home. She does not count carbs or manage with diet. She states she doesn't cook with salt but will use it at the dinner table in moderation. Typically eats 2 meals per day with dinner being the biggest meal and does report grazing between meals. Her FBG has come down with insulin management ant was 107mg/dL this morning. She declines detailed diabetes education at this time but did take my business card to contact if she and her would like to get together and talk more about meal planning for diabetes. She is at low nutrition risk at this time but at high risk for complications from chronic hyperglycemia. No aggressive nutrition intervention planned at this time - will continue to be available for diabetes education as patient may become more receptive to it. Time Spent in Nutritional Counseling and Treatment: 15 minutes
--- NOTE | 2023-02-18 14:19 | CHAPLAIN ---
Elizabeth was resting in bed when I visited. She was pleasant and easily engaged in a conversation, telling me she's here for a UTI. Her , she explains, is a patient at [facility], and so Elizabeth is worried about their dog and two cats at home. Her daughter is caring for them. Elizabeth hopes to go home tomorrow. At morning meeting it was stated that Elizabeth's , currently at [facility], is Elizabeth's caregiver and reminds her to take her medication. Elizabeth isn't sure why he's a patient at [facility]. I asked if they've spoken to each other, and she said no, but her daughter has spoken with her , and then she tells Elizabeth what's going on, Elizabeth explained..
[2023-02-18] MEDS: dilTIAZem CD 300 MG CAPCR PO (14:25)
[2023-02-18] MEDS: cefTRIAXone 1 GM/50 ML BAG IVPB (16:17)
[2023-02-18] MEDS: Insulin Glargine 300 UNITS/3 ML PEN 30 UNITS SC (21:16)
[2023-02-18] MEDS: Melatonin 3 MG TAB 9 MG PO (21:18)
[2023-02-18] MEDS: traZODone 50 MG TAB PO (21:19)
[2023-02-18] MEDS: Mirtazapine 15 MG TAB PO (21:19)
[2023-02-18] MEDS: diphenhydrAMINE 25 MG CAP 50 MG PO (21:22)
[2023-02-19 06:42] LABS: Abs Immature Grans 0.04 10^3/uL (0.0-0.06); Absolute Basophil Count 0.02 10^3/uL (0.0-0.2); Absolute Eosinophil Count 0.28 10^3/uL (0.0-0.7); Absolute Lymphocyte Count 1.67 10^3/uL (1.2-3.4); Absolute Monocyte Count 0.77 10^3/uL (0.1-0.8); Absolute Neutrophil Count 3.89 10^3/uL (1.2-6.7); Basophils % 0.3; Eosinophils % 4.2; HCT 35.9 % (36.0-46.0); HGB 11.5 g/dL (11.2-15.7); Immature Grans % 0.6; MCH 29.6 pg (27.0-33.0); MCV 92 fL (80-95); MPV 9.6 fL (8.0-11.0); Monocytes % 11.5; Neutrophils % 58.4; Platelet Count 356 10^3/uL (130-400); RBC 3.89 10^6/uL (3.93-5.22); RDW 14.1 % (11.7-14.6); RDW-SD 47.7 fL; WBC 6.67 10^3/uL (4.4-10.8)
[2023-02-19 07:00] LABS: Anion Gap 8.8 mmol/L (3-11); BUN 17 mg/dL (7-18); CO2 25.2 mmol/L (21.0-32.0); CREATININE 1.4 mg/dL (0.55-1.02); Calcium 8.9 mg/dL (8.5-10.1); Chloride 104 mmol/L (98-107); Estimated GFR 38.75 (mL/min/1.73m2); Glucose 193 mg/dL (74-106); Magnesium 1.9 mg/dL (1.8-2.4); Potassium 3.9 mmol/L (3.5-5.1); Sodium 138 mmol/L (136-145)
[2023-02-19 07:18] VITALS: BP 132/77; PULSE 84; RESP 18; TEMP 36.8; O2SAT 93
--- NOTE | 2023-02-19 08:04 | PDOC.CMPRO ---
Date of service: 02/19/23 Time of Service: 08:04 Care Management Progress Note Progress Note Text Progress Note Text: S/O: A: Elizabeth is a 77 year old woman admitted on 02/17/23 P:Anticipate Elizabeth will be discharged home, possibly with new home health services, when medically cleared. She will follow up with her PCP and plan of care and transport with family. CM to follow and assess for discharge planning concerns.
[2023-02-19] MEDS: Colestipol 1 GM TAB PO (08:18)
[2023-02-19] MEDS: dilTIAZem CD 300 MG CAPCR PO (08:18)
[2023-02-19] MEDS: Tamsulosin 0.4 MG CAPCR PO (08:19)
[2023-02-19] MEDS: Magnesium Oxide 400 MG TAB PO (08:19)
[2023-02-19] MEDS: Calcium 600mg/Vit D 200U TAB 1 TAB PO (08:19)
[2023-02-19] MEDS: buPROPion-CR 100 MG TABCR PO (08:19)
[2023-02-19] MEDS: Pantoprazole 40 MG TABCR PO (08:20)
[2023-02-19] MEDS: Ferrous Sulfate 325 MG TAB PO (08:20)
[2023-02-19] MEDS: Multivitamin TAB 1 TAB PO (08:20)
[2023-02-19] MEDS: predniSONE 5 MG TAB PO (08:20)
[2023-02-19] MEDS: Cyanocobalamin 500 MCG TAB 1000 MCG PO (08:21)
[2023-02-19] MEDS: Apixaban 2.5 MG TAB PO (08:21)
[2023-02-19] MEDS: Metoprolol CR 100 MG TABCR 200 MG PO (08:21)
[2023-02-19] MEDS: Vitamins B Comp w/C TAB 1 TAB PO (08:21)
[2023-02-19] MEDS: Insulin Aspart 300 UNITS/3 ML PEN SC ×2 (08:22→12:18)
[2023-02-19 11:03] VITALS: BP 132/76; PULSE 89; RESP 16; TEMP 36.5; O2SAT 92
[2023-02-19] MEDS: Fosfomycin Tromethamine 3 GM PACKET PO (14:15)
[2023-02-19] MEDS: cefTRIAXone 1 GM/50 ML BAG IVPB (14:17)
--- NOTE | 2023-02-19 14:17 | DSE_ITS ---
Date of service: 02/19/23 Time of Service: 14:17 DS: Diagnosis Discharge Diagnosis (1) Chronic atrial fibrillation with RVR: Status: Acute Asessment and Plan: 77-year-old female has a history of frequent UTIs, chronic atrial fibrillation on Eliquis, heart failure preserved ejection fraction, type 2 diabetes mellitus, rheumatoid arthritis on prednisone present emergency department 02/17/2023 after being sent down to to the emergency department from neurology clinic reportedly had purulent urine complaint feeling unwell was little more confused than usual and on evaluation emergency department found to be in rapid atrial fibrillation and evidence of UTI as evidenced by an abnormal urinalysis. She also had azotemia with elevated creatinine 1.8. She was treated with IV Cardizem push and admitted to the intensive care unit on Cardizem drip. Blood and urine cultures were obtained and she was started on Rocephin and was given IV fluids for hydration. Patient was weaned off the Cardizem drip and resumed on long- acting diltiazem. She was kept on the ceftriaxone 1 g IV daily. She was placed on basal bolus insulin coverage. She was put back on sustained-release metoprolol. By the morning of 02/19/2023 heart rate has been markedly well controlled. Overnight rhythm remains atrial fibrillation with a controlled rate between 67 and 88 bpm. Urine culture is growing mixed gram-positive shantanu, blood culture showed no growth. Glycohemoglobin A1c was elevated at 9.8%. Patient is requesting her Connell catheter be removed and requested to be discharged home. As the patient is afebrile with negative blood cultures and well-controlled atrial fibrillation is felt that she can be treated as an outpatient and discharged home. Home health nursing will be requested to follow-up with the patient for medication management and monitoring of her compliance. Patient is being discharged her same home regimen of metoprolol XL 20 mg daily and diltiazem CD3 100 mg daily along with apixaban 2.5 mg p.o. twice daily (2) Recurrent UTI: Status: Acute Asessment and Plan: Patient received 3 days of ceftriaxone and a one-time dose of fosfomycin. No further antibiotics are indicated at this time. Blood cultures came back no growth. Urine culture came back mixed gram-positive shantanu (3) Palliative care patient: (4) Advanced care planning/counseling discussion: Status: Acute (5) Non-adherence to medical treatment: Status: Acute (6) Type 2 diabetes mellitus with hyperglycemia: Status: Chronic Asessment and Plan: For diabetes she has been resumed on her previous home regimen of metformin and insulin. It is recommended that she follow-up closely with her primary care provider as her clinical hemoglobin A1c has risen since the summer to 9.8% whereas previously she had been under 8%. Improvement in her compliance with goal long ways towards improving her glycemic control. (7) Goals of care, counseling/discussion: Status: Acute (8) Rheumatoid arthritis: (9) Mild cognitive impairment: Status: Acute Discharge Plan Disposition Patient Disposition: Home W/Home Health Services Condition: Improving Discharge Details Reason For Visit: UTI, Rapid Afib, Hyperglycemia, Dehydration Admit Date/Time: 02/17/23 14:50 Admit Provider: Sapna rBo Attending Provider: Sapna Bro Primary Care Provider: Marleen Warren Home Meds and New Rx's Prescriptions: No Action colestipol 1 gram tablet 1 g PO BID ferrous fumarate 325 mg (106 mg iron) tablet 325 mg PO DAILY metformin 500 mg tablet 500 mg PO DAILY nystatin 100,000 unit/gram cream 1 applic topical TID mirtazapine 15 mg tablet 15 mg PO QHS Qty: 30 0RF Rx Instructions: increased dose from 7.5 mg Toujeo SoloStar U-300 Insulin 300 unit/mL (1.5 mL) insulin pen 100 unit subcut DAILY Eliquis 5 mg tablet 2.5 mg PO BID oxycodone 10 mg tablet 20 mg PO DAILY PRN sulfamethoxazole-trimethoprim 400-80 mg tablet 1 tab PO DAILY Qty: 90 3RF Rx Instructions: Prophylactic antibiotic for UTI prevention magnesium oxide 400 mg (241.3 mg magnesium) tablet 400 mg PO DAILY diphenhydramine HCl 50 mg capsule 50 mg PO QHS furosemide [Lasix] 20 mg tablet 20 mg PO DAILY metoprolol succinate 200 mg capsule,sprinkle,ER 24hr 200 mg PO DAILY bupropion HCl [Wellbutrin SR] 100 mg tablet sustained-release 12 hr 100 mg PO BID trazodone 50 mg tablet 50 mg PO DAILY multivitamin [Daily Value] 1 EACH tablet 1 ea PO DAILY Victoza 2-Tree 0.6 MG/0.1 ML pen injector 1.8 mg SQ HS melatonin 10 MG capsule 10 mg PO HS mecobalamin (vitamin B12) 1,000 MCG tablet,disintegrating 1,000 mcg Sublingual DAILY prednisone 5 MG tablet 5 mg PO DAILY Livalo 2 MG tablet 1 mg PO DAILY diltiazem HCl 300 mg Capsule,Extended Release 24hr 300 mg PO DAILY Qty: 30 0RF Calcium 600 + D(3) 600 mg calcium- 200 unit Capsule 1 cap PO DAILY coenzyme Q10 100 mg Capsule 100 mg PO DAILY Humalog KwluigiPen Insulin 200 unit/mL (3 mL) insulin pen 30 unit SUBCUT AC Patient Comments: INJECT 30 UNITS UNDER THE SKIN BEFORE EACH MEAL Rx Instructions: BEFORE EACH MEAL vitamin B complex Tablet 1 tab PO DAILY pantoprazole 40 mg Tablet,Delayed Release (Dr/Ec) 40 mg PO BID@729,1999 Qty: 30 0RF tamsulosin 0.4 mg Capsule 0.4 mg PO DAILY Qty: 14 0RF Saccharomyces boulardii [Florastor] 250 mg capsule 250 mg PO BID Qty: 14 0RF Paxlovid 150-100 mg tablet 150 tab PO BID Patient Comments: Take 2 tablets by mouth twice daily for 5 days Rx Instructions: take 2 tabs by mouth twice daily diltiazem HCl 300 mg capsule,extended release 24hr 300 mg PO DAILY diphenhydramine HCl 50 mg capsule 50 mg PO DAILY Patient Comments: Take 1 capsule by mouth every night Discharge Instructions Instructions: A-fib (Atrial Fibrillation) (DC), Urinary Tract Infection in Older Adults (DC) Activity:: Activity as Tolerated Equipment/Supplies:: No Equipment Needed Diet:: Carb Counting Discharge Orders Discharge Orders: Discharge Order (Routine); Ordered 02/19/23 Ordered By: Rey Rudolph DS: Summary Time Spent with Patient providing and/or coordinating discharge services: Greater than 30 minutes Specific discharge activities: Interview/exam of patient; review of discharge instructions, completion of prescriptions/discharge instructions; discussion w/ nursing and CM; documentation of hospital visit Status at Discharge Functional status at discharge: wheelchair bound Overall status at discharge: patient is back to baseline Mental Status: mental status grossly normal Speech and Movement: speech and movement normal Mood: congruent mood Affect: normal affect Exam Narrative Exam Narrative: Morbidly obese female sitting up in her bed alert and oriented person place time circumstance no acute distress. Lungs clear to auscultation Heart is irregularly irregular but controlled rate Abdomen is obese soft nontender Lower extremities with 1+ pitting edema Psych Mental Status: mental status grossly normal Speech and Movement: speech and movement normal Mood: congruent mood Affect: normal affect DS: Data Vitals/I&O Vitals and I&O: Vital Signs Temperature 36.5 C 02/19/23 11:03 Temperature Source Tympanic 02/19/23 11:03 Pulse 89 02/19/23 11:03 Pulse Rhythm Irregular 02/19/23 09:45 Pulse 86 02/18/23 10:30 Respiratory Rate 16 02/19/23 11:03 Respiratory Effort Normal, Non-Labored 02/19/23 09:45 Respiratory Depth Normal 02/19/23 09:45 Respiratory Pattern Normal 02/19/23 09:45 Blood Pressure 132/76 02/19/23 11:03 Blood Pressure Mean 83 02/17/23 18:00 Blood Pressure Position Supine 02/17/23 16:34 Pulse Oximetry 92 02/19/23 11:03 Oxygen Delivery Method Room Air 02/19/23 11:03 Oxygen Flow Rate 0 02/19/23 11:03 Pain Level 0 02/19/23 11:03 Intake & Output 02/18/23 02/19/23 02/19/23 23:59 11:59 23:59 Intake Total 1250 / 3542.083 480 / 720 240 / 720 Output Total 900 / 2150 1400 / 1400 Balance 350 / 1392.083 -920 / -680 240 / -680 Intake: IV 1050 / 3102.083 Oral 200 / 440 480 / 720 240 / 720 Output: Urine 900 / 2150 1400 / 1400 Other: Urine Color Yellow Pale Yellow Urine Appearance Cloudy Cloudy Stool Size Moderate Moderate Stool Characteristics Formed Formed Brown Data Completed and Pending Labs on day of discharge: Labs from last 24 hours 02/19/23 06:03 WBC 6.67 RBC 3.89 L Hgb 11.5 Hct 35.9 L MCV 92 MCH 29.6 MCHC 32.0 RDW 14.1 Plt Count 356 MPV 9.6 Immature Gran % 0.6 Neutrophils % 58.4 Lymphocytes % 25.0 Monocytes % 11.5 Eosinophils % 4.2 Basophils % 0.3 Nucleated RBC % 0.0 Absolute Neutrophils 3.89 Absolute Lymphocytes 1.67 Absolute Monocytes 0.77 Absolute Eosinophils 0.28 Absolute Basophils 0.02 Sodium 138 Potassium 3.9 Chloride 104 Carbon Dioxide 25.2 Anion Gap 8.8 BUN 17 Creatinine 1.4 H Est GFR (CKD-EPI 2020) 38.75 Glucose 193 H Calcium 8.9 Magnesium 1.9 Preliminary micro results at discharge 02/17/23 13:05 Blood Culture - Preliminary Blood NO GROWTH 24 HOURS 02/17/23 12:50 Blood Culture - Preliminary Blood NO GROWTH 24 HOURS PFSH All Active Problems Mild cognitive impairment (Acute) Non-adherence to medical treatment (Acute) Advanced care planning/counseling discussion (Acute) Discharge planning issues (Acute) DVT prophylaxis (Acute) Type 2 diabetes mellitus with hyperglycemia (Chronic) Toxic metabolic encephalopathy (Acute) LUTHER (acute kidney injury) (Acute) Chronic atrial fibrillation with RVR (Acute) STEMI (ST elevation myocardial infarction) (Acute) COVID (Acute) Recurrent UTI (Acute) History of cervical cancer (Acute) Insomnia (Acute) Goals of care, counseling/discussion (Acute) Wheelchair dependent (Chronic) motorized Laceration of ankle, right (Acute) Fracture of toe of right foot (Acute) Cellulitis (Acute) Poorly controlled type 2 diabetes mellitus (Acute) UTI (urinary tract infection) (Acute) Hydronephrosis with renal calculous obstruction (Acute) Calculus of proximal right ureter (Acute) Diabetes (Chronic) Atrial fibrillation (Chronic) Hypokalemia (Chronic) Psychogenic polydipsia (Chronic) UTI (urinary tract infection) (Acute) Weakness (Acute) Adjustment disorder (Acute) Advance directive on file (Acute) Atrial fibrillation with RVR (Acute) Acute diastolic CHF (congestive heart failure) (Acute) Bilateral nephrolithiasis (Chronic) Steroid dependent (Chronic) IDDM (insulin dependent diabetes mellitus) (Chronic) Diarrhea (Acute) UTI (urinary tract infection) (Acute) Dehydration (Acute) Ureterolithiasis (Acute) Hyperglycemia (Acute) Hyperglycemia due to type 1 diabetes mellitus (Acute) Gastrointestinal bleeding (Acute) C. difficile colitis (Acute) Duodenal ulcer (Acute) Medical History Palliative care patient Ambulatory dysfunction Obesity, morbid, BMI 40.0-49.9 Pulmonary hypertension mild Rheumatoid arthritis Rheumatoid arteritis Hx of hyperlipidemia HTN (hypertension) Diabetes Atrial fibrillation Surgical History History of cystoscopy History of hysterectomy Hx of cholecystectomy Family History Mother , in her late 60s from endometrial cancer Endometrial cancer Obesity Father , in his early 70s from alcoholic cirrhosis Alcohol abuse Cirrhosis, alcoholic Sister , in her early 70s from cervical cancer Cervical cancer Brother , age 60 from lung cancer Lung cancer Smoker Brother , age 50 from AIDS, history of IVDU AIDS IVDU (intravenous drug user) Brother , age 22 from suicide Suicide Brother , in psychiatric hospital ? COD IVDU (intravenous drug user) Daughter No problems noted. 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, [employer], 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, 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 Pets and animals: Yes Pets and animals: cat(s) and dog(s) Do you think of yourself as: straight/heterosexual Current gender identity: female What is your relationship status?: How often do you talk on the phone with friends or family?: twice per week How often do you get together with friends or relatives?: twice per week Panel score (0-1 are the most socially isolated patients): 2 What type of physical activity do you participate in: assisted ambulation and sedentary lifestyle Frequency: does not exercise Special terra needs: No Seatbelt use: always Water heater temp set <120 deg: Yes Working smoke detector in home: Yes Fire extinguisher in home: Yes Firearms in home: Yes Do you feel safe at home: Yes Do you feel safe in your relationship?: Yes Time Spent with Patient Time Spent with Patient: <45 minutes Time was spent: preparing to see the patient(eg.review tests), obtaining and/or reviewing separately otained hiistory, ordering medications,tests, procedures, referring, communicating with other health transitional care liaison, indepentently interpreting results, counseling the patient and care coordination
--- NOTE | 2023-02-19 14:29 | PDOC.HHF2F_ITS ---
Home Health Referral Home Health Orders Clinical synopsis of why skilled professionals are needed: Patient has a history of mild cognitive impairment along with medication noncompliance and presents emergency department with recurrent UTI and rapid atrial fibrillation. Rapid atrial fibrillation was directly related to her medication noncompliance. Patient needs assistance with setting up her medications and ensuring her compliance. Medical diagnosis necessitation home health referral: Atrial fibrillation with rapid ventricular response, recurrent UTI Registered Nurse: Check all that apply Instruct on new or changed medication(s)/assess compliance: Ordered Assess for exacerbation of medical condition, instruct patient/caregivers on signs and symptoms to report for early detection: Ordered Home Bound Status Requires the aid of supportive device (check all that apply): Wheelchair Describe why leaving home would require a considerable and taxing effort: Requires frequent rest periods and Safety Concerns: describe (Patient is wheelchair-bound high risk of falls) Encounter Date and Reason: I certify that a FTF encounter for this patient was performed on February 19, 2023 and that such encounter was related to the primary reason the patient requires home health services. The encounter was conducted in the following manner: * By me as the certifying physician, ENTRY LEVEL FINANCIAL ANALYST, PA or * By an inpatient physician, ENTRY LEVEL FINANCIAL ANALYST or PA during an inpatient stay who communicated findings to me, Certification And Authentication I certify that I composed the above information based on my clinical judgment relating to this patient's medical condition and, if applicable, clinical findings communicated to me by the NPP or inpatient physician who performed the FTF encounter. Name of Provider that will be monitoring home health services: Marleen Warren
[2023-02-19] MEDS: Normal Saline Flush 10 ML SYR IVP (14:31)
--- NOTE | 2023-02-19 17:09 | PDOC.CMDIS ---
Date of service: 02/19/23 Time of Service: 17:09 LACE Index Scoring Tool Questions: Length of Stay (in days): 2 Was the patient admitted via the E.D.?: Yes Comorbidities: Previous M.I., Diabetes w/o Complication, Congestive Heart Failure and Any Tumor E.D. Visits: 1 Answers: Total Score: 11 Risk of Readmission: High Risk Care Management Discharge Plan Reason for Hospitalization: UTI Discharge Plan: Elizabeth will be discharged home with new home health services for nursing for medication management. She will follow up with her PCP and plan of care and transport with family. Patient/Family Education Needs: Review of discharge instructions, limitations, activity, follow up plan, discuss Ask me Three Services Needed at Discharge: Home Health Care Services
== END 2023-02-19 15:48 | disposition home health service (06) | DRG 682 ==
LOC: ER 15:12 → ICU 16:14 → MS 02-18 19:34
PROVIDERS: Admitting Provider Internal Medicine; Emergency Provider Physician Assistant; PCP Family Medicine; Visit Provider Internal Medicine
DX: N17.9 Acute kidney failure, unspecified (principal); G92.8 Other toxic encephalopathy; I48.20 Chronic atrial fibrillation, unspecified; I50.32 Chronic diastolic (congestive) heart failure; N13.6 Pyonephrosis; E11.65 Type 2 diabetes mellitus with hyperglycemia; M06.9 Rheumatoid arthritis, unspecified; G31.84 Mild cognitive impairment of uncertain or unknown etiology; Z91.199 Patient's noncompliance with other medical treatment and regimen due to unspecified reason; Z99.3 Dependence on wheelchair; I25.2 Old myocardial infarction; Z79.4 Long term (current) use of insulin; G47.00 Insomnia, unspecified; E87.6 Hypokalemia; Z79.52 Long term (current) use of systemic steroids; E86.0 Dehydration; I27.20 Pulmonary hypertension, unspecified; E66.01 Morbid (severe) obesity due to excess calories; Z68.39 Body mass index [BMI] 39.0-39.9, adult; Z85.41 Personal history of malignant neoplasm of cervix uteri; Z79.01 Long term (current) use of anticoagulants; I11.0 Hypertensive heart disease with heart failure; R53.1 Weakness; Z66 Do not resuscitate
CPT/HCPCS: 00123; 36415; 76770; 80048; 80053; 82805; 83690; 83935; 87040; 87637; 93005; 96361; 96365; 96375; 97162; 99213; 99222; 99285; 99497; 71045; 81003; 81015; 82140; 83036; 83605; 83735; 83880; 83930; 84443; 84484; 85025; 85610; 85730; 87086; 93010; 99232; 99239; 99291; J0696; J3490; J7512

== ENCOUNTER → 2023-02-18 07:21 | Outpatient (BNVA) | payer MEDICARE, MEDICAID, SELFPAY | PROVIDERS: PCP Family Medicine; Referring Provider Family Medicine; Visit Provider Urology ==

== ENCOUNTER 2023-02-25 15:29 | Emergency (ER) | payer MEDICARE, MEDICAID, SELFPAY ==
[2023-02-25 15:27] VITALS: BP 129/84; PULSE 153; RESP 20; TEMP 36.9; O2SAT 95
--- NOTE | 2023-02-25 15:30 | RT.EKG_ITS ---
APPROVED REPORT Exam: Resting ECG Reason for Exam: AMS Patient Location: E HR:115 bpm ECG Measurements Heart Rate 115 AXIS NH 159 P 0 QRSd 102 QRS 25 QT [id number] T -26 QTc 0 Conclusion atrial fib RVR
--- NOTE | 2023-02-25 15:30 | DI.CT_ITS ---
Exam(s) CT HEAD WO EXAM: CT HEAD WO CLINICAL HISTORY: altered mental status. TECHNIQUE: Imaging Protocol: Axial computed tomography images with coronal and sagittal reformatted images were created and reviewed COMPARISON: CT CT HEAD CERVICAL SPINE WO from 02/04/2022 FINDINGS: There are no skull fractures. There is no fluid in the visualized paranasal sinuses. There is no evidence of intracranial hemorrhage, mass effect, or shift of midline structures. There are no extra-axial fluid collections. The ventricles are not enlarged or shifted and there is no blo od within the ventricular system nor within the basal cisterns. IMPRESSION: No acute intracranial findings on this noninfused CT scan of the brain. Called by myself to ER. RADIATION DOSE DELIVERED: Total DLP DATA REPOSITORY: All CT scans at this facility are submitted to the National Radiology Data Registry (NRDR) Dose Index Registry (DIR) with the [employer] ([employer]). RADIATION OPTIMIZATION: All CT scans at this facility use at least one of these dose optimization te chniques: automated exposure control; mA and/or kV adjustment per patient size (includes targeted exa ms where dose is matched to clinical indication); or iterative reconstruction.
--- NOTE | 2023-02-25 15:31 | W.ED.GENAD ---
Discharge Plan Discharge Details Chief Complaint: Dizzy/Sync Primary Care Provider: Marleen Warren ED Provider: Rajinder Haider Home Meds and New Rx's Prescriptions: No Action colestipol 1 gram tablet 1 g PO BID ferrous fumarate 325 mg (106 mg iron) tablet 325 mg PO DAILY metformin 500 mg tablet 500 mg PO DAILY nystatin 100,000 unit/gram cream 1 applic topical TID mirtazapine 15 mg tablet 15 mg PO QHS Qty: 30 0RF Rx Instructions: increased dose from 7.5 mg Toujeo SoloStar U-300 Insulin 300 unit/mL (1.5 mL) insulin pen 100 unit subcut DAILY Eliquis 5 mg tablet 2.5 mg PO BID oxycodone 10 mg tablet 20 mg PO DAILY PRN sulfamethoxazole-trimethoprim 400-80 mg tablet 1 tab PO DAILY Qty: 90 3RF Rx Instructions: Prophylactic antibiotic for UTI prevention magnesium oxide 400 mg (241.3 mg magnesium) tablet 400 mg PO DAILY diphenhydramine HCl 50 mg capsule 50 mg PO QHS furosemide [Lasix] 20 mg tablet 20 mg PO DAILY metoprolol succinate 200 mg capsule,sprinkle,ER 24hr 200 mg PO DAILY bupropion HCl [Wellbutrin SR] 100 mg tablet sustained-release 12 hr 100 mg PO BID trazodone 50 mg tablet 50 mg PO DAILY multivitamin [Daily Value] 1 EACH tablet 1 ea PO DAILY Victoza 2-Tree 0.6 MG/0.1 ML pen injector 1.8 mg SQ HS melatonin 10 MG capsule 10 mg PO HS mecobalamin (vitamin B12) 1,000 MCG tablet,disintegrating 1,000 mcg Sublingual DAILY prednisone 5 MG tablet 5 mg PO DAILY Livalo 2 MG tablet 1 mg PO DAILY diltiazem HCl 300 mg Capsule,Extended Release 24hr 300 mg PO DAILY Qty: 30 0RF Calcium 600 + D(3) 600 mg calcium- 200 unit Capsule 1 cap PO DAILY coenzyme Q10 100 mg Capsule 100 mg PO DAILY Humalog KwikPen Insulin 200 unit/mL (3 mL) insulin pen 30 unit SUBCUT AC Patient Comments: INJECT 30 UNITS UNDER THE SKIN BEFORE EACH MEAL Rx Instructions: BEFORE EACH MEAL vitamin B complex Tablet 1 tab PO DAILY pantoprazole 40 mg Tablet,Delayed Release (Dr/Ec) 40 mg PO BID@729,1999 Qty: 30 0RF tamsulosin 0.4 mg Capsule 0.4 mg PO DAILY Qty: 14 0RF Delia maravilladii [Florastor] 250 mg capsule 250 mg PO BID Qty: 14 0RF Paxlovid 150-100 mg tablet 150 tab PO BID Patient Comments: Take 2 tablets by mouth twice daily for 5 days Rx Instructions: take 2 tabs by mouth twice daily diltiazem HCl 300 mg capsule,extended release 24hr 300 mg PO DAILY diphenhydramine HCl 50 mg capsule 50 mg PO DAILY Patient Comments: Take 1 capsule by mouth every night Medical Decision Making Emergent evaluation of altered mental status. At this time the patient patient is alert and oriented. She reports that her lightheadedness and her vision changes are returned to normal. My concern is for CVA, electrolyte derangement, dysrhythmia. We will check lab work and rate control. Lab work reviewed, normal white blood cell count. Creatinine is at baseline. Troponin negative. Patient is hyperglycemic without evidence of DKA. 1700: Patient refusing straight cath for urinalysis urinalysis 1730: Patient's home health care worker is now here. She states that she is concerned of the patient is not doing well at home. Patient got herself out of bed and put herself onto a stool and started to wheel herself out of the emergency department. She states that she wants to go home she does not want any care. She is alert and oriented. She is able to clearly describe her goals and wishes and understands the consequences of these. She is adamant about being discharged. I feel that the patient would benefit from hospitalization for medication management, care management, increase of resources or placement in a nursing facility especially while her is being hospitalized but the patient does have capacity to make her own decisions. Patient was able to ambulate in the emergency department with a walker. 1740: I discussed with the patient's daughter Zahida. She will come to the emergency department to talk with the patient and take her home if necessary. Patient evaluated in conjunction with Dr. Monge, we can occur that the patient has capacity to make her own medical decisions at this time. Patient agrees to wait for her daughter's arrival. A urinalysis sample has been provided 1750: Patient will be signed out pending urinalysis and discussion with the daughter. If the patient still chooses to go home, she will be discharged at that time. Medical Records Medical records reviewed: Yes I reviewed the patient's medical records. Lab Data Lab results reviewed: Yes I reviewed the patient's lab results. HPI General Date/Time Provider Initiated Documentation: 02/25/23 15:29. Limitations to Documentation: altered mental status and physical limitation. Information obtained by: patient and EMS. HPI Narrative: 77-year-old female with past medical history of A-fib (on Eliquis), diabetes (on insulin), hypertension, CHF, pulmonary hypertension presents for evaluation of altered mental status. Today she reports that she has been feeling dizzy and lightheaded. She called EMS twice to her home. The first time she refused transport. The second time she was found to be hyperglycemic. Vital signs with tachycardia consistent with A-fib. Patient reports that cannot remember if she has been taking her medication. Paramedics could not find her medication in the home. She states that she feels very lightheaded. No nausea or vomiting. No headache. She reports that she has been having some floaters in the left eye but this is now resolved and her vision is normal. Related Data Home Medications Medication Instructions Recorded Confirmed pitavastatin calcium 2 mg tablet 1 mg PO DAILY 07/21/13 02/17/23 (Livalo) prednisone 5 mg tablet 5 mg PO DAILY 07/21/13 02/17/23 liraglutide 0.6 mg/0.1 mL (18 mg/3 1.8 mg SQ HS 12/23/16 02/17/23 mL) subcutaneous pen injector (Victoza 2-Tree) mecobalamin (vitamin B12) 1,000 1,000 mcg sublingual DAILY 12/23/16 02/17/23 mcg disintegrating tablet,sublingual melatonin 10 mg capsule 10 mg PO HS 12/23/16 02/17/23 multivitamin (Daily Value tablet) 1 ea PO DAILY 12/23/16 02/17/23 diltiazem HCl 300 mg 300 mg PO DAILY #30 caps 10/10/18 02/17/23 capsule,extended release 24 hr calcium carbonate 600 mg-vitamin 1 cap PO DAILY 11/09/19 02/17/23 D3 5 mcg (200 unit) capsule (Calcium 600 + D(3)) coenzyme Q10 100 mg capsule 100 mg PO DAILY 11/09/19 02/17/23 insulin lispro 200 unit/mL (3 mL) 30 unit subcut AC 11/09/19 02/17/23 subcutaneous pen (Humalog KwikPen U-200 Insulin) vitamin B complex 1 tab PO DAILY 11/09/19 02/17/23 pantoprazole 40 mg tablet,delayed 40 mg PO BID@0730,1999 #30 tabs 11/14/19 02/17/23 release tamsulosin 0.4 mg capsule 0.4 mg PO DAILY #14 caps 03/18/20 02/17/23 Saccharomyces boulardii 250 mg 250 mg PO BID #14 caps 10/16/20 02/17/23 capsule (Florastor) colestipol 1 gram tablet 1 g PO BID 11/28/20 02/17/23 ferrous fumarate 325 mg (106 mg 325 mg PO DAILY 11/28/20 02/17/23 iron) tablet metformin 500 mg tablet 500 mg PO DAILY 11/28/20 02/17/23 nystatin 100,000 unit/gram topical 1 applic topical TID 11/28/20 02/17/23 cream mirtazapine 15 mg tablet 15 mg PO QHS #30 tabs 12/01/20 02/17/23 apixaban 5 mg tablet (Eliquis) 2.5 mg PO BID 07/23/21 02/17/23 bupropion HCl 100 mg tablet,12 hr 100 mg PO BID 07/23/21 02/17/23 sustained-release (Wellbutrin SR) diphenhydramine HCl 50 mg capsule 50 mg PO QHS 07/23/21 02/17/23 furosemide 20 mg tablet (Lasix) 20 mg PO DAILY 07/23/21 02/17/23 insulin glargine U-300 conc 300 100 unit subcut DAILY 07/23/21 02/17/23 unit/mL (1.5 mL) subcutaneous pen (Toujeo SoloStar U-300 Insulin) magnesium oxide 400 mg (241.3 mg 400 mg PO DAILY 07/23/21 02/17/23 magnesium) tablet metoprolol succinate 200 mg 200 mg PO DAILY 07/23/21 02/17/23 capsule sprinkle, ext. release 24 hr oxycodone 10 mg tablet 20 mg PO DAILY PRN 07/23/21 02/17/23 trazodone 50 mg tablet 50 mg PO DAILY 07/23/21 02/17/23 diltiazem HCl 300 mg 300 mg PO DAILY 09/27/21 02/17/23 capsule,extended release 24 hr diphenhydramine HCl 50 mg capsule 50 mg PO DAILY 09/27/21 02/17/23 nirmatrelvir 150 mg-ritonavir 100 150 tab PO BID 09/27/21 02/17/23 mg tablets in a dose pack (Paxlovid) sulfamethoxazole 400 1 tab PO DAILY #90 tabs 02/12/23 02/17/23 mg-trimethoprim 80 mg tablet Previous Rx's Medication Instructions Recorded diltiazem HCl 300 mg 300 mg PO DAILY #30 caps 10/10/18 capsule,extended release 24 hr pantoprazole 40 mg tablet,delayed 40 mg PO BID@ #30 tabs 11/14/19 release tamsulosin 0.4 mg capsule 0.4 mg PO DAILY #14 caps 03/18/20 Saccharomyces boulardii 250 mg 250 mg PO BID #14 caps 10/16/20 capsule (Florastor) mirtazapine 15 mg tablet 15 mg PO QHS #30 tabs 12/01/20 sulfamethoxazole 400 1 tab PO DAILY #90 tabs 02/12/23 mg-trimethoprim 80 mg tablet Allergies Allergy/AdvReac Type Severity Reaction Status Date / Time atorvastatin AdvReac Intermediate leg cramps Unverified 09/27/21 11:26 lisinopril AdvReac Intermediate cough Unverified 09/27/21 11:26 General Stated Complaint: Dizzy/Sync REGAN: 3 PFSH All Active Problems Mild cognitive impairment (Acute) Non-adherence to medical treatment (Acute) Advanced care planning/counseling discussion (Acute) Type 2 diabetes mellitus with hyperglycemia (Chronic) STEMI (ST elevation myocardial infarction) (Acute) COVID (Acute) Recurrent UTI (Acute) History of cervical cancer (Acute) Insomnia (Acute) Goals of care, counseling/discussion (Acute) Wheelchair dependent (Chronic) motorized Laceration of ankle, right (Acute) Fracture of toe of right foot (Acute) Cellulitis (Acute) Poorly controlled type 2 diabetes mellitus (Acute) UTI (urinary tract infection) (Acute) Hydronephrosis with renal calculous obstruction (Acute) Calculus of proximal right ureter (Acute) Diabetes (Chronic) Atrial fibrillation (Chronic) Hypokalemia (Chronic) Psychogenic polydipsia (Chronic) UTI (urinary tract infection) (Acute) Weakness (Acute) Adjustment disorder (Acute) Advance directive on file (Acute) Atrial fibrillation with RVR (Acute) Acute diastolic CHF (congestive heart failure) (Acute) Bilateral nephrolithiasis (Chronic) Steroid dependent (Chronic) IDDM (insulin dependent diabetes mellitus) (Chronic) Diarrhea (Acute) UTI (urinary tract infection) (Acute) Dehydration (Acute) Ureterolithiasis (Acute) Hyperglycemia (Acute) Hyperglycemia due to type 1 diabetes mellitus (Acute) Gastrointestinal bleeding (Acute) C. difficile colitis (Acute) Duodenal ulcer (Acute) Medical History Palliative care patient Ambulatory dysfunction Obesity, morbid, BMI 40.0-49.9 Pulmonary hypertension mild Rheumatoid arteritis Hx of hyperlipidemia HTN (hypertension) Diabetes Atrial fibrillation Surgical History History of cystoscopy History of hysterectomy Hx of cholecystectomy Family History Mother , in her late 60s from endometrial cancer Endometrial cancer Obesity Father , in his early 70s from alcoholic cirrhosis Alcohol abuse Cirrhosis, alcoholic Sister , in her early 70s from cervical cancer Cervical cancer Brother , age 60 from lung cancer Lung cancer Smoker Brother , age 50 from AIDS, history of IVDU AIDS IVDU (intravenous drug user) Brother , age 22 from suicide Suicide Brother , in psychiatric hospital ? COD IVDU (intravenous drug user) Daughter No problems noted. 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, 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, 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, 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 Pets and animals: Yes Pets and animals: cat(s) and dog(s) Do you think of yourself as: straight/heterosexual Current gender identity: female What is your relationship status?: How often do you talk on the phone with friends or family?: twice per week How often do you get together with friends or relatives?: twice per week Panel score (0-1 are the most socially isolated patients): 2 What type of physical activity do you participate in: assisted ambulation and sedentary lifestyle Frequency: does not exercise Special terra needs: No Seatbelt use: always Water heater temp set <120 deg: Yes Working smoke detector in home: Yes Fire extinguisher in home: Yes Firearms in home: Yes Do you feel safe at home: Yes Do you feel safe in your relationship?: Yes Exam Narrative Exam Narrative: Review of Systems: All systems reviewed & are unremarkable except as noted in HPI and below: CONSTITUTIONAL: Alert and oriented Elderly, frail, obese HEENT: NACT EYES: PERRL, no conjunctival injection EARS: no external abnormality NOSE nares patent MOUTH Moist MM NECK: Symmetric, trachea midline, No thyromegaly THROAT oropharynx clear CVS: Tachycardic, No murmurs or gallops. Peripheral pulses 2+ and equal in all extremities Brisk capillary refill in all extremities. No peripheral edema RESP: Unlabored respiratory effort, Clear to auscultation bilaterally No wheezes rales or rhonchi GI: Soft, Nontender, Nondistended, No organomegaly MSK: Extremities with full range of motion, no deformity or TTP SKIN: Warm, Dry. No rashes or lesions. NEURO: No focal neurologic deficits. scratcher II-XII grossly intact Sensation grossly intact Normal strength throughout PSYCH: Aggravated Course Vital Signs Vital signs: Vital Signs Temperature 36.9 C 02/25/23 15:27 Pulse 153 H 02/25/23 15:27 Respiratory Rate 20 02/25/23 15:27 Blood Pressure 129/84 02/25/23 15:27 Pulse Oximetry 95 02/25/23 15:27 Temperature 36.9 C 02/25/23 15:27 Pulse 153 H 02/25/23 15:27 Respiratory Rate 20 02/25/23 15:27 Respiratory Effort Normal 02/25/23 15:30 Blood Pressure 129/84 02/25/23 15:27 Pulse Oximetry 95 02/25/23 15:27
[2023-02-25] MEDS: dilTIAZem 25 MG/5 ML VIAL 10 MG IVP (15:40)
[2023-02-25 15:42] VITALS: PULSE 138; RESP 15; O2SAT 96
[2023-02-25 15:43] VITALS: BP 126/86; PULSE 126; PULSE 87; RESP 14; O2SAT 95
[2023-02-25 15:44] LABS: Abs Immature Grans 0.03 10^3/uL (0.0-0.06); Absolute Basophil Count 0.03 10^3/uL (0.0-0.2); Absolute Eosinophil Count 0.12 10^3/uL (0.0-0.7); Absolute Lymphocyte Count 1.11 10^3/uL (1.2-3.4); Absolute Monocyte Count 0.66 10^3/uL (0.1-0.8); Absolute Neutrophil Count 5.53 10^3/uL (1.2-6.7); Basophils % 0.4; Eosinophils % 1.6; HCT 40.2 % (36.0-46.0); HGB 13.2 g/dL (11.2-15.7); Immature Grans % 0.4; Lymphocytes % 14.8; MCH 29.7 pg (27.0-33.0); MCHC 32.8 % (32.0-36.0); MCV 91 fL (80-95); MPV 9.6 fL (8.0-11.0); Monocytes % 8.8; Platelet Count 336 10^3/uL (130-400); RBC 4.44 10^6/uL (3.93-5.22); RDW 13.5 % (11.7-14.6); RDW-SD 44.9 fL; WBC 7.48 10^3/uL (4.4-10.8)
[2023-02-25 15:46] VITALS: BP 124/68; PULSE 115; PULSE 117; RESP 15; O2SAT 94
[2023-02-25 15:51] VITALS: PULSE 112; RESP 17; O2SAT 94
[2023-02-25 15:54] LABS: INR 1.5 (0.9-1.1); Prothrombin Time 14.4 sec (9.1-11.1)
[2023-02-25 16:11] LABS: ALT 16 U/L (14-59); AST 14 U/L (15-37); Albumin 2.6 g/dL (3.4-5.0); Alkaline Phosphatase 103 U/L (46-116); Anion Gap 9.4 mmol/L (3-11); BUN 14 mg/dL (7-18); Bilirubin, Total 0.4 mg/dL (0.2-1.0); CO2 25.6 mmol/L (21.0-32.0); CREATININE 1.3 mg/dL (0.55-1.02); Calcium 8.8 mg/dL (8.5-10.1); Chloride 96 mmol/L (98-107); Estimated GFR 42.35 (mL/min/1.73m2); Glucose 481 mg/dL (74-106); Potassium 3.8 mmol/L (3.5-5.1); Sodium 131 mmol/L (136-145); TSH (W/Ref FT4) 0.69 uIU/mL (0.36-3.74); Total Protein 7.3 g/dL (6.4-8.2); Troponin I < 50 ng/L (<or=60)
[2023-02-25] MEDS: Apixaban 2.5 MG TAB PO (16:52)
[2023-02-25] MEDS: dilTIAZem CD 120 MG CAPCR PO (16:52)
[2023-02-25] MEDS: Metoprolol CR 25 MG TABCR PO (16:52)
[2023-02-25 17:51] LABS: Bilirubin Negative (Negative); Blood Moderate (Negative); Clarity Turbid (Clear); Glucose 500 mg/dL (Negative); Ketones Negative (Negative); Leukocyte Esterase Large (Negative); Nitrite Negative (Negative); Specific Gravity 1.015 (1.005-1.025); Urobilinogen 0.2 mg/dL (Up to 0.2)
[2023-02-25 18:00] LABS: C & S Indicated? Yes; Other Cells Moderate Yeast (Negative); WBC >50 HPF (0-5)
[2023-02-25] MEDS: Cephalexin 500 MG CAP PO (18:50)
[2023-02-25] MEDS: Insulin Glargine 100 UNITS/ML UNIT SC (18:50)
[2023-02-25] MEDS: dilTIAZem CD 180 MG CAPCR PO (18:53)
--- NOTE | 2023-02-25 20:29 | NUR.NOTE ---
Referral to Care Management to see if [facility] can help patient with daily medications. usually helps her but is in hospital at this time.Nursing Note:
== END 2023-02-25 19:07 | disposition home or self-care (01) ==
PROVIDERS: Emergency Medicine; Emergency Provider Student in an Organized Health Care Education/Training Program; PCP Family Medicine
DX: R41.82 Altered mental status, unspecified; E11.65 Type 2 diabetes mellitus with hyperglycemia; I48.91 Unspecified atrial fibrillation; I11.0 Hypertensive heart disease with heart failure; I50.9 Heart failure, unspecified; Z79.01 Long term (current) use of anticoagulants; Z79.4 Long term (current) use of insulin; Z79.899 Other long term (current) drug therapy; Z88.8 Allergy status to other drugs, medicaments and biological substances
CPT/HCPCS: 80053; 82962; 93005; 96372; 96374; 99284; 70450; 81003; 81015; 82140; 83880; 84443; 84484; 85025; 85610; 87086; 93010; 99285; J1815

== ENCOUNTER 2023-02-26 10:37 | Outpatient (REF) | payer MEDICARE, MEDICAID, SELFPAY ==
[2023-02-26 13:25] LABS: Bilirubin Negative (Negative); Blood Moderate (Negative); Clarity Cloudy (Clear); Glucose 100 mg/dL (Negative); Ketones Negative (Negative); Leukocyte Esterase Moderate (Negative); Nitrite Negative (Negative); Urobilinogen 0.2 mg/dL (Up to 0.2); pH 5.5 (5-8)
[2023-02-26 13:36] LABS: C & S Indicated? C&S Done As Ordered; Other Cells Moderate Yeast (Negative); WBC >50 HPF (0-5)
== END 2023-02-26 10:38 | disposition home or self-care (01) ==
LOC: NCHCN 10:37
PROVIDERS: PCP Family Medicine; Visit Provider Family Medicine
DX: N39.0 Urinary tract infection, site not specified (principal); R82.89 Other abnormal findings on cytological and histological examination of urine
CPT/HCPCS: 81003; 81015; 87086

== ENCOUNTER 2023-03-16 09:43 | Inpatient (IN) | payer MEDICARE, MEDICAID, SELFPAY ==
[2023-03-16] VITALS (79 sets, daily range): BP systolic 97–158; BP diastolic 52–135; PULSE 71–149; RESP 10–30; TEMP 36.1–37.5; O2SAT 92–98
[2023-03-16 10:09] LABS: Abs Immature Grans 0.03 10^3/uL (0.0-0.06); Absolute Basophil Count 0.05 10^3/uL (0.0-0.2); Absolute Lymphocyte Count 1.16 10^3/uL (1.2-3.4); Absolute Monocyte Count 0.65 10^3/uL (0.1-0.8); Absolute Neutrophil Count 6.57 10^3/uL (1.2-6.7); Basophils % 0.6; Eosinophils % 1.2; HCT 38.4 % (36.0-46.0); HGB 12.8 g/dL (11.2-15.7); Immature Grans % 0.4; Lymphocytes % 13.6; MCH 29.6 pg (27.0-33.0); MCHC 33.3 % (32.0-36.0); MCV 89 fL (80-95); MPV 9.9 fL (8.0-11.0); Monocytes % 7.6; Neutrophils % 76.6; Platelet Count 331 10^3/uL (130-400); RBC 4.32 10^6/uL (3.93-5.22); RDW 14.2 % (11.7-14.6); RDW-SD 46.2 fL; WBC 8.56 10^3/uL (4.4-10.8)
[2023-03-16] MEDS: Ondansetron 4 MG/2 ML VIAL IVP (10:19)
[2023-03-16] MEDS: Normal Saline 1,000 ML 300 ML IV (10:20)
--- NOTE | 2023-03-16 10:28 | W.ED.GENAD ---
Discharge Plan Disposition Patient Disposition: Admit to [facility] Discharge Details Clinical Impression: UTI (urinary tract infection), Diabetes, Gastrointestinal bleeding, Mild cognitive impairment, Atrial fibrillation with RVR, Diarrhea, Duodenal ulcer Admit Date/Time: 03/16/23 14:43 Admit Provider: Sapna Bro Attending Provider: Sapna Bro Primary Care Provider: Marleen Warren ED Provider: Uvaldo Manuel Discharge Data Discharge Date/Time-TO BE ENTERED AT DEPARTURE: 03/16/23 16:40 Medical Decision Making Patient presenting to the emergency department via EMS for chief complaint of nausea vomiting and diarrhea x 3 days. She states that she has not been able to keep any of her medications down or much food. She is able to tolerate small amount of liquid intake. She states generalized abdominal pain but denies fever or chills respiratory or other symptoms. Does state that she may have had a small amount of blood in some of her diarrhea over the past couple days patient states that she thought she may have had some food poisoning but now is not completely sure. Patient does report difficulty with remembering exactly when the last time she took her medications was. On review of past medical records patient was seen approximately 2 weeks ago and diagnosed with UTI but she does not remember if she even started the Keflex for this. Patient has significant past medical history of diabetes, hypertension, atrial fibrillation on anticoagulation, rheumatoid arthritis. Physical exam shows normal cardiac and respiratory exam, patient does have some tenderness to palpation of both right upper and lower quadrant otherwise noncontributory exam. Will plan on checking labs and CT imaging given point tenderness and guarding with exam. Pending results will give Zofran and fluids. Review of labs show an overall nondiagnostic CBC, CMP does show hyponatremia, decreased renal function at baseline, glucose of 454, calcium 8.3, mag significantly low at 1.2 which will give IV mag to replete, other labs nondiagnostic. Lipase within normal range. Patient negative for COVID flu RSV. Reviewed CT imaging that showed chronic right-sided hydroureter nephrosis secondary to a large ureteral stone. Patient does also have findings to suggest acute duodenitis or duodenal ulcer. Patient is Hemoccult positive and on anticoagulation for her A-fib. Urinalysis was reviewed and does show signs of infection with leukocyte esterase and greater than 50 WBCs. Reflexive culture was ordered. Ordered patient to have Rocephin and fosfomycin given that she has been informing staff that she wants to go home, did order her p.o. potassium and 10 units of subcu insulin given hyperglycemia. Went in to reassess patient and discussed patient plan. patient's heart rate was in 160s. Patient also did have some obvious cognitive challenges as she did not remember earlier conversations. I am concerned due to patient's inability to take medications for the last 3 days, poorly controlled A-fib with RVR, signs of urinary tract infection, possible duodenal ulcer with GI bleeding so we are holding patient's anticoagulation, and her hyperglycemia due to poor medication control again. Did order patient diltiazem push along with her daily p.o. medications but given the complexity and multiple issues I do feel that patient would benefit from admission. Spoke about patient condition and concerns I have with hospitalist who agreed to admit patient. Patient is also in agreement with this plan. Imaging Data Radiologic Study: Imaging: CT Scan Radiologist's impression: Exam(s) PROCEDURE INFORMATION: Exam: CT Abdomen And Pelvis With Contrast Exam date and time: 03/16/2023 11:26 AM Age: 78 years old Clinical indication: Other: Right-sided abdominal pain, nausea vomiting TECHNIQUE: Imaging protocol: Computed tomography of the abdomen and pelvis with contrast. Contrast material: OMNIPAQUE 350; Contrast volume: 100 ml; Contrast route: INTRAVENOUS (IV); COMPARISON: CT CHEST/ABD/PEL WO 02/04/2022 9:12 AM FINDINGS: Liver: No acute abnormality or suspicious hepatic mass. Gallbladder and bile ducts: Status post cholecystectomy. No biliary duct dilation. Pancreas: No acute abnormality or obvious pancreatic duct dilation. Spleen: Normal size; no suspicious masses. Adrenal glands: No suspicious adrenal masses. Kidneys and ureters: Mild right renal atrophy associated with chronic right hydroureteronephrosis secondary to a very large stone in the upper pelvic portion of the right ureter. This stone measures approximately 11 mm in length it is unchanged in position compared to 02/04/2022 exam. As on the prior study, a linear density extending from this stone into the urinary bladder, terminating in the left anterior aspect of the bladder may represent a short-segment ureteral stent distal to the stone, as previously reported, or could represent coalescent Steinstrasse. In either case, the finding is not changed significantly from previous exam in 2021. A few small left renal lesions are present, some of which represent cysts and a few of which are too small to characterize with certainty. Stomach and bowel: Wall thickening and surrounding inflammatory reaction involves duodenal suggesting duodenitis or duodenal ulcer disease. There is associated mucosal hyperenhancement. Very small periampullary duodenal diverticulum is noted. Otherwise, no extraluminal air identified. . Appendix: The appendix is normal. Intraperitoneal space: No free intraperitoneal air identified. Vasculature: Abdominal aorta has normal caliber. No high-grade stenosis of major visceral arteries. SMV, splenic vein, and portal vein are patent. Lymph nodes: No enlarged lymph nodes. Urinary bladder: See Kidneys and ureters finding. Reproductive: Visualized portions show no obvious acute abnormality. Bones/joints: Chronic multilevel lumbar degenerative disc disease and facet arthropathy are present, the latter associated with grade 1 anterolisthesis at L4-L5. There is resulting chronic lumbar spinal stenosis. Soft tissues: Very small umbilical hernia contains only fat. IMPRESSION: 1. Acute duodenitis or duodenal ulcer disease. There is stranding in the surrounding fat but, other than for a small periampullary duodenal diverticulum, no obvious extraluminal air is seen. 2. Chronic right hydroureteronephrosis secondary to a large distal right ureteral stone. Very small caliber stent versus coalescent Steinstrasse extends from this stone into the urinary bladder over a total length of approximately 13 cm. Dictated and Authenticated by: Dev Espinal MD. Lab Data Lab results reviewed: Yes I reviewed the patient's lab results. HPI General Mode of arrival: EMS. Date/Time Provider Initiated Documentation: 03/16/23 09:51. Limitations to Documentation: no limitations. Information obtained by: patient and RN notes reviewed. History of Present Illness 78 year old F presents to the emergency department with the chief complaint of Nausea vomiting, described as moderate, Quality is described as aching, and is localized to the abdomen. Patient started experiencing this day(s) (3) and it has been constant. No relieving factors improve symptom(s), No exacerbating factors reported . Patient did receive the following treatments prior to arrival, none Related Data Home Medications Medication Instructions Recorded Confirmed prednisone 5 mg tablet 5 mg PO DAILY 07/21/13 03/16/23 melatonin 10 mg capsule 10 mg PO HS 12/23/16 02/17/23 calcium carbonate 600 mg-vitamin 1 cap PO DAILY 11/09/19 02/17/23 D3 5 mcg (200 unit) capsule (Calcium 600 + D(3)) coenzyme Q10 100 mg capsule 100 mg PO DAILY 11/09/19 03/16/23 insulin lispro 200 unit/mL (3 mL) 30 unit subcut AC 11/09/19 02/17/23 subcutaneous pen (Humalog KwikPen U-200 Insulin) vitamin B complex 1 tab PO DAILY 11/09/19 03/16/23 tamsulosin 0.4 mg capsule 0.4 mg PO DAILY #14 caps 03/18/20 03/16/23 Saccharomyces boulardii 250 mg 250 mg PO BID #14 caps 10/16/20 02/17/23 capsule (Florastor) ferrous fumarate 325 mg (106 mg 325 mg PO DAILY 11/28/20 03/16/23 iron) tablet diphenhydramine HCl 50 mg capsule 50 mg PO QHS 07/23/21 02/17/23 furosemide 20 mg tablet (Lasix) 20 mg PO QPM 07/23/21 03/17/23 insulin glargine U-300 conc 300 100 unit subcut DAILY 07/23/21 02/17/23 unit/mL (1.5 mL) subcutaneous pen (Toujeo SoloStar U-300 Insulin) magnesium oxide 400 mg (241.3 mg 400 mg PO DAILY 07/23/21 03/16/23 magnesium) tablet metoprolol succinate 200 mg 200 mg PO DAILY 07/23/21 03/16/23 capsule sprinkle, ext. release 24 hr oxycodone 10 mg tablet 10 mg PO TID PRN PRN 07/23/21 03/17/23 trazodone 50 mg tablet 50 mg PO HS 07/23/21 03/17/23 diltiazem HCl 300 mg 300 mg PO DAILY 09/27/21 03/16/23 capsule,extended release 24 hr sulfamethoxazole 400 1 tab PO DAILY #90 tabs 02/12/23 03/16/23 mg-trimethoprim 80 mg tablet fluoxetine 20 mg capsule 20 mg PO DAILY 03/16/23 03/16/23 leflunomide 10 mg tablet 10 mg PO DAILY 03/16/23 03/16/23 nitroglycerin 0.4 mg sublingual 0.4 mg sublingual Q5M PRN 03/16/23 03/16/23 tablet rivaroxaban 15 mg tablet (Xarelto) 15 mg PO DIRECTED 03/16/23 03/17/23 rosuvastatin 20 mg tablet 20 mg PO HS 03/16/23 03/17/23 semaglutide 1 mg/dose (4 mg/3 mL) 1 mg subcut QWEEK 03/16/23 03/16/23 subcutaneous pen injector (Ozempic) cyanocobalamin (vitamin B-12) 1,000 mcg PO DAILY 03/17/23 03/17/23 1,000 mcg tablet metformin 500 mg tablet,extended 500 mg PO DAILY 03/17/23 03/17/23 release 24 hr isaxbsym-caw-raelo acid 0.4 1 tab PO DAILY 03/17/23 03/17/23 mg-lycopene 300 mcg-lutein 250 mcg tablet (Adults 50 Plus) pantoprazole 40 mg tablet,delayed 40 mg PO DAILY 03/17/23 03/17/23 release Previous Rx's Medication Instructions Recorded tamsulosin 0.4 mg capsule 0.4 mg PO DAILY #14 caps 03/18/20 Saccharomyces boulardii 250 mg 250 mg PO BID #14 caps 10/16/20 capsule (Florastor) sulfamethoxazole 400 1 tab PO DAILY #90 tabs 02/12/23 mg-trimethoprim 80 mg tablet Allergies Allergy/AdvReac Type Severity Reaction Status Date / Time atorvastatin AdvReac Intermediate leg cramps Unverified 03/16/23 09:38 lisinopril AdvReac Intermediate cough Unverified 03/16/23 09:38 General Stated Complaint: Nausea/Vomit/Diar REGAN: 3 Review of Systems Constitutional Constitutional: Denies chills, Denies fever(s), Denies headache(s), Reports malaise and Reports poor appetite ENT Ears, Nose, Mouth, and Throat: Denies headache(s) Cardiovascular Cardiovascular: Denies chest pain and Denies dyspnea Respiratory Respiratory: Denies cough and Denies dyspnea Gastrointestinal Gastrointestinal: Reports as per HPI, Reports abdominal pain, Reports melena, Reports hematochezia, Denies change in bowel habits, Denies constipation, Denies diarrhea, Reports nausea and Reports vomiting Genitourinary Genitourinary: Denies hematuria, Denies urinary incontinence, Denies urinary hesitancy and Denies urinary urgency Integumentary/Breasts Skin/Breast: Denies rash Neurologic Neurologic: Denies headache(s) PFSH All Active Problems (Updated 03/16/23 @ 19:09 by Oralia Garcia DO) Discharge planning issues (Acute) DVT prophylaxis (Acute) Heme + stool (Acute) Dizziness (Acute) Hyperglycemia (Acute) Mild cognitive impairment (Acute) Non-adherence to medical treatment (Acute) Advanced care planning/counseling discussion (Acute) Type 2 diabetes mellitus with hyperglycemia (Chronic) STEMI (ST elevation myocardial infarction) (Acute) Cardiac catheterization performed 11/02. There is single-vessel disease. Recannulization was not successful. Lifelong anticoagulation with dual antiplatelet therapy. COVID (Acute) Recurrent UTI (Acute) History of cervical cancer (Acute) Insomnia (Acute) Goals of care, counseling/discussion (Acute) Wheelchair dependent (Chronic) motorized Laceration of ankle, right (Acute) Fracture of toe of right foot (Acute) Cellulitis (Acute) Poorly controlled type 2 diabetes mellitus (Acute) UTI (urinary tract infection) (Acute) Hydronephrosis with renal calculous obstruction (Chronic) Calculus of proximal right ureter (Acute) Diabetes (Chronic) Atrial fibrillation (Chronic) Hypokalemia (Chronic) Psychogenic polydipsia (Chronic) UTI (urinary tract infection) (Acute) Weakness (Acute) Adjustment disorder (Acute) Advance directive on file (Acute) Atrial fibrillation with RVR (Acute) Acute diastolic CHF (congestive heart failure) (Acute) Bilateral nephrolithiasis (Chronic) Steroid dependent (Chronic) IDDM (insulin dependent diabetes mellitus) (Chronic) Diarrhea (Acute) UTI (urinary tract infection) (Acute) Dehydration (Acute) Ureterolithiasis (Acute) Hyperglycemia (Acute) Hyperglycemia due to type 1 diabetes mellitus (Acute) Gastrointestinal bleeding (Acute) C. difficile colitis (Acute) Duodenal ulcer (Acute) Medical History Palliative care patient Ambulatory dysfunction Obesity, morbid, BMI 40.0-49.9 Pulmonary hypertension mild Rheumatoid arteritis Hx of hyperlipidemia HTN (hypertension) Diabetes Atrial fibrillation Surgical History History of cystoscopy History of hysterectomy Hx of cholecystectomy Family History Mother , in her late 60s from endometrial cancer Endometrial cancer Obesity Father , in his early 70s from alcoholic cirrhosis Alcohol abuse Cirrhosis, alcoholic Sister , in her early 70s from cervical cancer Cervical cancer Brother , age 60 from lung cancer Lung cancer Smoker Brother , age 50 from AIDS, history of IVDU AIDS IVDU (intravenous drug user) Brother , age 22 from suicide Suicide Brother , in psychiatric hospital ? COD IVDU (intravenous drug user) Daughter No problems noted. 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, 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, 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, 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 Pets and animals: Yes Pets and animals: cat(s) and dog(s) Do you think of yourself as: straight/heterosexual Current gender identity: female What is your relationship status?: How often do you talk on the phone with friends or family?: twice per week How often do you get together with friends or relatives?: twice per week Panel score (0-1 are the most socially isolated patients): 2 What type of physical activity do you participate in: assisted ambulation and sedentary lifestyle Frequency: does not exercise Special terra needs: No Seatbelt use: always Water heater temp set <120 deg: Yes Working smoke detector in home: Yes Fire extinguisher in home: Yes Firearms in home: Yes Do you feel safe at home: Yes Do you feel safe in your relationship?: Yes Exam Const General: cooperative Orientation: alert, awake and oriented x3 Resp Effort & Inspection: normal respiratory effort and able to speak in complete sentences Auscultation: clear to auscultation bilaterally Cardio Rate: regular rate Rhythm: regular rhythm Heart Sounds: S1 normal and S2 normal GI Palpation: soft, not firm, no guarding, no masses, no pulsatile masses, not rigid and tender in the RLQ and in the RUQ Auscultation: normal bowel sounds Back/Spine/Pelvis Back: no CVA tenderness Neuro General: patient alert, patient awake, patient oriented x3, gait normal and moves all extremities Course Vital Signs Vital signs: Vital Signs Temperature 36.1 C L 03/16/23 09:35 Pulse 91 H 03/16/23 09:35 Respiratory Rate 18 03/16/23 09:35 Blood Pressure 155/77 H 03/16/23 09:35 Pulse Oximetry 96 03/16/23 09:35 Temperature 36.1 C L 03/16/23 09:52 Temperature Source Temporal Artery Scan 03/16/23 09:52 Pulse 91 H 03/16/23 09:52 Respiratory Rate 18 03/16/23 09:52 Respiratory Effort Normal, Non-Labored 03/16/23 09:44 Blood Pressure 155/77 H 03/16/23 09:52 Blood Pressure Position Supine 03/16/23 09:52 Pulse Oximetry 96 03/16/23 09:52 Oxygen Delivery Method Room Air 03/16/23 09:52 Oxygen Flow Rate 0 03/16/23 09:52 Lab/Test Results Lab/Test Results: Laboratory Tests Range/Units 03/16/23 09:55 WBC (4.4-10.8) 10^3/uL 8.56 RBC (3.93-5.22) 10^6/uL 4.32 Hgb (11.2-15.7) g/dL 12.8 Hct (36.0-46.0) % 38.4 MCV (80-95) fL 89 MCH (27.0-33.0) pg 29.6 MCHC (32.0-36.0) % 33.3 RDW (11.7-14.6) % 14.2 Plt Count (130-400) 10^3/uL 331 MPV (8.0-11.0) fL 9.9 Immature Gran % 0.4 Neutrophils % 76.6 Lymphocytes % 13.6 Monocytes % 7.6 Eosinophils % 1.2 Basophils % 0.6 Nucleated RBC % (0.0-0.3) % 0.0 Absolute Neutrophils (1.2-6.7) 10^3/uL 6.57 Absolute Lymphocytes (1.2-3.4) 10^3/uL 1.16 L Absolute Monocytes (0.1-0.8) 10^3/uL 0.65 Absolute Eosinophils (0.0-0.7) 10^3/uL 0.10 Absolute Basophils (0.0-0.2) 10^3/uL 0.05 Sodium Cancelled Potassium Cancelled Chloride Cancelled Carbon Dioxide Cancelled Anion Gap Cancelled BUN Cancelled Creatinine Cancelled Est GFR (CKD-EPI 2020) Cancelled Glucose Cancelled Calcium Cancelled Magnesium Cancelled Total Bilirubin Cancelled AST Cancelled ALT Cancelled Alkaline Phosphatase Cancelled Total Protein Cancelled Albumin Cancelled Lipase Cancelled
[2023-03-16 10:49] LABS: ALT 16 U/L (14-59); AST 12 U/L (15-37); Albumin 2.5 g/dL (3.4-5.0); Alkaline Phosphatase 92 U/L (46-116); Anion Gap 7.4 mmol/L (3-11); BUN 17 mg/dL (7-18); Bilirubin, Total 0.5 mg/dL (0.2-1.0); CO2 26.6 mmol/L (21.0-32.0); CREATININE 1.3 mg/dL (0.55-1.02); Calcium 8.3 mg/dL (8.5-10.1); Chloride 96 mmol/L (98-107); Estimated GFR 42.09 (mL/min/1.73m2); Glucose 454 mg/dL (74-106); Lipase 51 U/L (16-77); Magnesium 1.2 mg/dL (1.8-2.4); Potassium 3.5 mmol/L (3.5-5.1); Sodium 130 mmol/L (136-145); Total Protein 6.8 g/dL (6.4-8.2)
--- NOTE | 2023-03-16 11:00 | DI.CT_ITS ---
Exam(s) CT ABDOMEN PELVIS W EXAM: CT ABDOMEN PELVIS W CLINICAL HISTORY: Right-sided abdominal pain, nausea vomiting. TECHNIQUE: Imaging Protocol: Axial computed tomography images with coronal and sagittal reformatted images were created and reviewed CONTRAST MATERIAL: Intravenous: Omnipaque-350 100cc Oral: None COMPARISON: CT CT CHEST/ABD/PEL WO from 02/04/2022 FINDINGS: VISUALIZED LUNG BASES: No nodules nor pleural effusions evident. ABDOMEN: GI: There is significant circumferential edema of the entire duodenum with surrounding streaking. Ed ematous wall thickness is 8-9 mm. Consistent with severe duodenitis. There is a duodenal diverticul um again noted on the medial wall, similar to previous. There is no evidence of bowel obstruction. LIVER: There are no focal hepatic lesions evident. No dilated intrahepatic ducts. GALLBLADDER/BILIARY: Gallbladder is again noted to be surgically absent. CBD is not dilated. PANCREAS: No evidence of pancreatic mass nor dilatation of the pancreatic duct. SPLEEN: Spleen is not enlarged. No obvious intrasplenic lesions. Splenic and portal veins are paten t. ADRENALS: There are no significant adrenal masses. KIDNEYS:Significant right-sided hydronephrosis and hydroureter again noted with ureter dilated to 12 mm. There is a large calculus in the distal right ureter and there is a very thin catheter/stent in the lower right ureter extending from level of this stone into the urinary bladder. There is some en hancement of the wall of the ureter. Suspect possible infected urine. There are few tiny calculi in the right kidney remaining. Left kidney exhibits some in homogeneous enhancement which may also ref lect infectious etiology such as pyelonephritis. Are few tiny cortical cysts noted and small calculu s in the left kidney. The left ureter is not dilated. There are no radiopaque calculi in the urinar y bladder. ABDOMINAL AORTA: Abdominal aorta is not enlarged. LYMPH NODES:There is no retroperitoneal nor paraaortic adenopathy. ABDOMINAL WALL: Fat only containing umbilical hernia GI: There is no evidence of bowel obstruction, free air, nor abscess. PELVIS: GI: No evidence of appendicitis.There are sigmoid diverticuli. No evidence of acute diverticulitis. LYMPH NODES: There is no intrapelvic nor inguinal adenopathy. REPRODUCTIVE: Uterus is surgically absent. No ovarian masses seen. No free fluid in the pelvis. URINARY BLADDER: Thin caliber right-sided stent, as described . Mild bladder wall thickening OSSEOUS: No fractures and no significant osseous lesions. IMPRESSION: 1. Compared to the prior CT scan of 02/04/2022 there is again noted a thin caliber catheter or stent in the lower right ureter extending from just below an obstructing calculus or calcified mass in the ureter at this level down into the urinary bladder lumen. The right ureter is again noted be dilated above this level as is the right kidney. There are few tiny calculi remaining in the dilated right kidney. 2. Left kidney enhancement pattern may reflect pound nephritis. There is no hydronephrosis on the le ft side. 3. There is severe circumferential edema of the entire duodenum consistent with severe duodenitis. T here is surrounding streaking but no free air in this region. Pocket of air seen medially at this le wilbur is most probably in a duodenal diverticulum. 4. Other findings as above. RADIATION DOSE DELIVERED: Total DLP DATA REPOSITORY: All CT scans at this facility are submitted to the National Radiology Data Registry (NRDR) Dose Index Registry (DIR) with the [employer] (ACR). RADIATION OPTIMIZATION: All CT scans at this facility use at least one of these dose optimization te chniques: automated exposure control; mA and/or kV adjustment per patient size (includes targeted exa ms where dose is matched to clinical indication); or iterative reconstruction.
[2023-03-16] MEDS: Normal Saline Flush 10 ML SYR IVP ×2 (11:23→22:09)
[2023-03-16] MEDS: Normal Saline - Diluent 50 ML VIAL IJ (11:24)
[2023-03-16] MEDS: Omnipaque 350 MG/ML 100 ML BTL IJ (11:28)
[2023-03-16] MEDS: MAGNESIUM SULFATE 2 GM/50 ML BAG IVPB (11:52)
[2023-03-16] MEDS: Prochlorperazine 10 MG/2 ML VIAL 5 MG IVP (11:52)
--- NOTE | 2023-03-16 12:07 | DI.VRAD_ITS ---
PROCEDURE INFORMATION: Exam: CT Abdomen And Pelvis With Contrast Exam date and time: 03/16/2023 11:26 AM Age: 78 years old Clinical indication: Other: Right-sided abdominal pain, nausea vomiting TECHNIQUE: Imaging protocol: Computed tomography of the abdomen and pelvis with contrast. Contrast material: OMNIPAQUE 350; Contrast volume: 100 ml; Contrast route: INTRAVENOUS (IV); COMPARISON: CT CHEST/ABD/PEL WO 02/04/2022 9:12 AM FINDINGS: Liver: No acute abnormality or suspicious hepatic mass. Gallbladder and bile ducts: Status post cholecystectomy. No biliary duct dilation. Pancreas: No acute abnormality or obvious pancreatic duct dilation. Spleen: Normal size; no suspicious masses. Adrenal glands: No suspicious adrenal masses. Kidneys and ureters: Mild right renal atrophy associated with chronic right hydroureteronephrosis secondary to a very large stone in the upper pelvic portion of the right ureter. This stone measures approximately 11 mm in length it is unchanged in position compared to 02/04/2022 exam. As on the prior study, a linear density extending from this stone into the urinary bladder, terminating in the left anterior aspect of the bladder may represent a short-segment ureteral stent distal to the stone, as previously reported, or could represent coalescent Steinstrasse. In either case, the finding is not changed significantly from previous exam in 2021. A few small left renal lesions are present, some of which represent cysts and a few of which are too small to characterize with certainty. Stomach and bowel: Wall thickening and surrounding inflammatory reaction involves duodenal suggesting duodenitis or duodenal ulcer disease. There is associated mucosal hyperenhancement. Very small periampullary duodenal diverticulum is noted. Otherwise, no extraluminal air identified. . Appendix: The appendix is normal. Intraperitoneal space: No free intraperitoneal air identified. Vasculature: Abdominal aorta has normal caliber. No high-grade stenosis of major visceral arteries. SMV, splenic vein, and portal vein are patent. Lymph nodes: No enlarged lymph nodes. Urinary bladder: See Kidneys and ureters finding. Reproductive: Visualized portions show no obvious acute abnormality. Bones/joints: Chronic multilevel lumbar degenerative disc disease and facet arthropathy are present, the latter associated with grade 1 anterolisthesis at L4-L5. There is resulting chronic lumbar spinal stenosis. Soft tissues: Very small umbilical hernia contains only fat. IMPRESSION: 1. Acute duodenitis or duodenal ulcer disease. There is stranding in the surrounding fat but, other than for a small periampullary duodenal diverticulum, no obvious extraluminal air is seen. 2. Chronic right hydroureteronephrosis secondary to a large distal right ureteral stone. Very small caliber stent versus coalescent Steinstrasse extends from this stone into the urinary bladder over a total length of approximately 13 cm. Dictated and Authenticated by: Dev Espinal MD. Ordering:VIRGINIA Bailon MD
[2023-03-16 13:01] LABS: Bilirubin Negative (Negative); Blood Large (Negative); Clarity Cloudy (Clear); Glucose >=1000 mg/dL (Negative); Ketones Negative (Negative); Leukocyte Esterase Small (Negative); Nitrite Negative (Negative); Specific Gravity 1.015 (1.005-1.025); Urobilinogen 0.2 mg/dL (Up to 0.2); pH 5.5 (5-8)
[2023-03-16 13:06] LABS: C & S Indicated? Yes; WBC >50 HPF (0-5)
[2023-03-16 13:19] LABS: COVID-19 PCR Negative (Negative); Influenza A PCR Negative (Negative); Influenza B PCR Negative (Negative); RSV PCR Negative (Negative)
[2023-03-16 13:20] LABS: Source Nasopharynx
[2023-03-16] MEDS: dilTIAZem CD 300 MG CAPCR PO (13:43)
[2023-03-16] MEDS: Potassium Chloride 20 MEQ TABCR PO (13:43)
[2023-03-16] MEDS: Fosfomycin Tromethamine 3 GM PACKET PO (13:43)
[2023-03-16] MEDS: Metoprolol CR 100 MG TABCR 200 MG PO (13:43)
[2023-03-16] MEDS: Insulin REGULAR-Human 100 UNITS/ML UNIT 10 UNITS SC (13:44)
[2023-03-16] MEDS: dilTIAZem 25 MG/5 ML VIAL 10 MG IVP (14:11)
[2023-03-16] MEDS: cefTRIAXone 1 GM/50 ML BAG IVPB (14:17)
--- NOTE | 2023-03-16 14:50 | HPE_ITS ---
Date of service: 03/16/23 Time of Service: 14:50 Assessment and Plan Assessment and plan (1) Atrial fibrillation with RVR: Status: Resolved Assessment and plan: In setting of noncompliance with medical regimen and acute infection. Continue home medications but hold anticoagulation. (2) Recurrent UTI: Status: Acute Assessment and plan: Present on admission. Started on empiric ceftriaxone. C/s urology given that it is complicated and the patient has hydronephrosis and a renal calculus on the R. (3) Duodenal ulcer: Status: Acute Assessment and plan: NPO. Treat with IV protonix + carafate. General surgery consulted. I am not sure that the description of the blood per rectum matches the findings on CT. (4) Hydronephrosis with renal calculous obstruction: Status: Chronic Assessment and plan: As above (5) Type 2 diabetes mellitus with hyperglycemia: Status: Chronic Assessment and plan: Resume home basal bolus regimen (6) Heme + stool: Status: Acute Assessment and plan: As above (7) DVT prophylaxis: Status: Acute Assessment and plan: SCDs Hold chemical DVT ppx in setting of acute bleeding (8) Discharge planning issues: Status: Acute Assessment and plan: DNR Admit to the ICU with low threshold to downgrade to the medical surgical floor. History of Present Illness History of Present Illness Chief Complaint: malaise, n/v/diarrhea, black stools Narrative: Ms Chester is a 78 year old female with PMHx of frequent UTIs with a known chronic R hydronephrosis with a known large distal R ureteral stone, as well as h/o Afib on anticoagulation with apixaban, chronic GI bleeding, IDDM, mild cognitive impairment, medication noncompliance, who was brought to [facility] ED by ambulance for malaise, n/v/diarrhea/black stools. The patient was found to be heme + in the ED, though her hemoglobin was 12.8, not that different from her baseline of 11-13. The patient admitted to not taking antibiotics prescribed to her on her last ER visit on 02/25/23 (keflex). The patient did have a positive urinalysis on this presentation as well and has evidence of obstructive uropathy with a large stone on the R (as known) on CT today. Additionally, there is duodenitis vs duodenal ulcer seen on CT. The patient was started on IV PPI. Finally, on arrival to the ER, her HR was in the 90s (Afib); however, it did go up to 160s and required a push of diltiazem IV 10 mg to have the HR go down to low 100s, then loaded with her home cardizem CD 300 mg. Her magnesium and potassium were repleted. The patient received 10 units of regular insulin SC. Hospitalist admission to the ICU was requested. On my evaluation of the patient, she states that she started feeling sick 3-4 days ago and stopped taking all her medications at that time. She states she was able to drink, but was not able to eat due to nausea/vomiting. She describes dark red blood in her stools x 4, but none in the last 2 days. She describes BLQ pain, dysuria, urinary frequency, urgency. On my evaluation of her in the ICU, her HR is in the 80s. Review of Systems All systems reviewed & are unremarkable except as noted in HPI and below PFSH All Active Problems (Updated 03/16/23 @ 18:31 by Sapna Bro MD) Discharge planning issues (Acute) DVT prophylaxis (Acute) Heme + stool (Acute) Dizziness (Acute) Hyperglycemia (Acute) Mild cognitive impairment (Acute) Non-adherence to medical treatment (Acute) Advanced care planning/counseling discussion (Acute) Type 2 diabetes mellitus with hyperglycemia (Chronic) STEMI (ST elevation myocardial infarction) (Acute) COVID (Acute) Recurrent UTI (Acute) History of cervical cancer (Acute) Insomnia (Acute) Goals of care, counseling/discussion (Acute) Wheelchair dependent (Chronic) motorized Laceration of ankle, right (Acute) Fracture of toe of right foot (Acute) Cellulitis (Acute) Poorly controlled type 2 diabetes mellitus (Acute) UTI (urinary tract infection) (Acute) Hydronephrosis with renal calculous obstruction (Chronic) Calculus of proximal right ureter (Acute) Diabetes (Chronic) Atrial fibrillation (Chronic) Hypokalemia (Chronic) Psychogenic polydipsia (Chronic) UTI (urinary tract infection) (Acute) Weakness (Acute) Adjustment disorder (Acute) Advance directive on file (Acute) Atrial fibrillation with RVR (Acute) Acute diastolic CHF (congestive heart failure) (Acute) Bilateral nephrolithiasis (Chronic) Steroid dependent (Chronic) IDDM (insulin dependent diabetes mellitus) (Chronic) Diarrhea (Acute) UTI (urinary tract infection) (Acute) Dehydration (Acute) Ureterolithiasis (Acute) Hyperglycemia (Acute) Hyperglycemia due to type 1 diabetes mellitus (Acute) Gastrointestinal bleeding (Acute) C. difficile colitis (Acute) Duodenal ulcer (Acute) Medical History Palliative care patient Ambulatory dysfunction Obesity, morbid, BMI 40.0-49.9 Pulmonary hypertension mild Rheumatoid arteritis Hx of hyperlipidemia HTN (hypertension) Diabetes Atrial fibrillation Surgical History History of cystoscopy History of hysterectomy Hx of cholecystectomy Family History Mother , in her late 60s from endometrial cancer Endometrial cancer Obesity Father , in his early 70s from alcoholic cirrhosis Alcohol abuse Cirrhosis, alcoholic Sister , in her early 70s from cervical cancer Cervical cancer Brother , age 60 from lung cancer Lung cancer Smoker Brother , age 50 from AIDS, history of IVDU AIDS IVDU (intravenous drug user) Brother , age 22 from suicide Suicide Brother , in psychiatric hospital ? COD IVDU (intravenous drug user) Daughter No problems noted. 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, 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, 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, 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 Pets and animals: Yes Pets and animals: cat(s) and dog(s) Do you think of yourself as: straight/heterosexual Current gender identity: female What is your relationship status?: How often do you talk on the phone with friends or family?: twice per week How often do you get together with friends or relatives?: twice per week Panel score (0-1 are the most socially isolated patients): 2 What type of physical activity do you participate in: assisted ambulation and sedentary lifestyle Frequency: does not exercise Special terra needs: No Seatbelt use: always Water heater temp set <120 deg: Yes Working smoke detector in home: Yes Fire extinguisher in home: Yes Firearms in home: Yes Do you feel safe at home: Yes Do you feel safe in your relationship?: Yes Meds Allergies and Home Medications Allergies Allergy/AdvReac Type Severity Reaction Status Date / Time atorvastatin AdvReac Intermediate leg cramps Unverified 03/16/23 09:38 lisinopril AdvReac Intermediate cough Unverified 03/16/23 09:38 Home Medications Medication Instructions Recorded Confirmed Type pitavastatin calcium 2 mg tablet 1 mg PO DAILY 07/21/13 02/17/23 History (Livalo) prednisone 5 mg tablet 5 mg PO DAILY 07/21/13 03/16/23 History liraglutide 0.6 mg/0.1 mL (18 mg/3 1.8 mg SQ HS 12/23/16 02/17/23 History mL) subcutaneous pen injector (Isolation Networktoza 2-Tree) mecobalamin (vitamin B12) 1,000 1,000 mcg sublingual DAILY 12/23/16 03/16/23 History mcg disintegrating tablet,sublingual melatonin 10 mg capsule 10 mg PO HS 12/23/16 02/17/23 History multivitamin (Daily Value tablet) 1 ea PO DAILY 12/23/16 02/17/23 History diltiazem HCl 300 mg 300 mg PO DAILY #30 caps 10/10/18 03/16/23 Rx capsule,extended release 24 hr calcium carbonate 600 mg-vitamin 1 cap PO DAILY 11/09/19 02/17/23 History D3 5 mcg (200 unit) capsule (Calcium 600 + D(3)) coenzyme Q10 100 mg capsule 100 mg PO DAILY 11/09/19 03/16/23 History insulin lispro 200 unit/mL (3 mL) 30 unit subcut AC 11/09/19 02/17/23 History subcutaneous pen (Humalog KwikPen U-200 Insulin) vitamin B complex 1 tab PO DAILY 11/09/19 03/16/23 History pantoprazole 40 mg tablet,delayed 40 mg PO BID@ #30 tabs 11/14/19 03/16/23 Rx release tamsulosin 0.4 mg capsule 0.4 mg PO DAILY #14 caps 03/18/20 03/16/23 Rx Saccharomyces boulardii 250 mg 250 mg PO BID #14 caps 10/16/20 02/17/23 Rx capsule (Florastor) colestipol 1 gram tablet 1 g PO BID 11/28/20 02/17/23 History ferrous fumarate 325 mg (106 mg 325 mg PO DAILY 11/28/20 03/16/23 History iron) tablet metformin 500 mg tablet 500 mg PO DAILY 11/28/20 03/16/23 History nystatin 100,000 unit/gram topical 1 applic topical TID 11/28/20 02/17/23 History cream mirtazapine 15 mg tablet 15 mg PO QHS #30 tabs 12/01/20 02/17/23 Rx diphenhydramine HCl 50 mg capsule 50 mg PO QHS 07/23/21 02/17/23 History furosemide 20 mg tablet (Lasix) 20 mg PO DAILY 07/23/21 03/16/23 History insulin glargine U-300 conc 300 100 unit subcut DAILY 07/23/21 02/17/23 History unit/mL (1.5 mL) subcutaneous pen (Toueun SoloStar U-300 Insulin) magnesium oxide 400 mg (241.3 mg 400 mg PO DAILY 07/23/21 03/16/23 History magnesium) tablet metoprolol succinate 200 mg 200 mg PO DAILY 07/23/21 03/16/23 History capsule sprinkle, ext. release 24 hr oxycodone 10 mg tablet 20 mg PO DAILY PRN 07/23/21 02/17/23 History trazodone 50 mg tablet 50 mg PO DAILY 07/23/21 03/16/23 History diltiazem HCl 300 mg 300 mg PO DAILY 09/27/21 03/16/23 History capsule,extended release 24 hr diphenhydramine HCl 50 mg capsule 50 mg PO DAILY 09/27/21 02/17/23 History sulfamethoxazole 400 1 tab PO DAILY #90 tabs 02/12/23 03/16/23 Rx mg-trimethoprim 80 mg tablet fluoxetine 20 mg capsule 20 mg PO DAILY 03/16/23 03/16/23 History leflunomide 10 mg tablet 10 mg PO DAILY 03/16/23 03/16/23 History nitroglycerin 0.4 mg sublingual 0.4 mg sublingual Q5M PRN 03/16/23 03/16/23 History tablet rivaroxaban 15 mg tablet (Xarelto) 15 mg PO DAILY 03/16/23 03/16/23 History rosuvastatin 20 mg tablet 20 mg PO DAILY 03/16/23 03/16/23 History semaglutide 1 mg/dose (4 mg/3 mL) 1 mg subcut QWEEK 03/16/23 03/16/23 History subcutaneous pen injector (Ozempic) Exam Narrative Exam Narrative: General: A very pleasant elderly obese female, appears comfortable, not pale, on RA Neurological: A&Ox2, forgetful/vague history provider, no focal deficits Psychiatric: Appropriate speech pattern/content Skin: Visible skin intact HEENT: Atraumatic, normocephalic, EOMI, MMM, clear oropharynx, no submandibular or cervical lymphadenopathy, no goiter or JVD Cardiovascular: irregularly irregular rhythm, no m/r/g Lungs: CTAB Gastrointestinal: soft, tender in RLQ and LLQ, nondistended Genitourinary: deferred Extremities: no edema BLEs, I am unable to palpate pedal pulses B, no lesions on B feet Results Imaging Imaging Studies: CT abdomen/pelvis; 1. Acute duodenitis or duodenal ulcer disease. There is stranding in the surrounding fat but, other than for a small periampullary duodenal diverticulum, no obvious extraluminal air is seen. 2. Chronic right hydroureteronephrosis secondary to a large distal right ureteral stone. Very small caliber stent versus coalescent Steinstrasse extends from this stone into the urinary bladder over a total length of approximately 13 cm. EKG: pending CXR: pending Labs 03/16/23 09:55 03/16/23 10:25 Labs: Laboratory Results - last 24 hr 03/16/23 03/16/23 03/16/23 09:55 10:25 12:34 WBC 8.56 RBC 4.32 Hgb 12.8 Hct 38.4 MCV 89 MCH 29.6 MCHC 33.3 RDW 14.2 Plt Count 331 MPV 9.9 Immature Gran % 0.4 Neutrophils % 76.6 Lymphocytes % 13.6 Monocytes % 7.6 Eosinophils % 1.2 Basophils % 0.6 Nucleated RBC % 0.0 Absolute Neutrophils 6.57 Absolute Lymphocytes 1.16 L Absolute Monocytes 0.65 Absolute Eosinophils 0.10 Absolute Basophils 0.05 Sodium Cancelled 130 L Potassium Cancelled 3.5 Chloride Cancelled 96 L Carbon Dioxide Cancelled 26.6 Anion Gap Cancelled 7.4 BUN Cancelled 17 Creatinine Cancelled 1.3 H Est GFR (CKD-EPI 2020) Cancelled 42.09 Glucose Cancelled 454 H Calcium Cancelled 8.3 L Magnesium Cancelled 1.2 L Total Bilirubin Cancelled 0.5 AST Cancelled 12 L ALT Cancelled 16 Alkaline Phosphatase Cancelled 92 Total Protein Cancelled 6.8 Albumin Cancelled 2.5 L Lipase Cancelled 51 Urine Color Urine Clarity Urine pH Ur Specific [place] Urine Protein Urine Ketones Urine Blood Urine Nitrite Urine Bilirubin Urine Urobilinogen Ur Leukocyte Esterase Urine RBC Urine WBC Ur Epithelial Cells Urine Crystals Urine Bacteria Urine Mucus Ur Culture Indicated? Urine Glucose COVID-19 Source Nasopharynx SARS-CoV-2 (PCR) Negative Influenza Type A (PCR) Negative Influenza Type B (PCR) Negative RSV (PCR) Negative Patient ABO/Rh O Positive Antibody Screen NEGATIVE 03/16/23 12:56 WBC RBC Hgb Hct MCV MCH MCHC RDW Plt Count MPV Immature Gran % Neutrophils % Lymphocytes % Monocytes % Eosinophils % Basophils % Nucleated RBC % Absolute Neutrophils Absolute Lymphocytes Absolute Monocytes Absolute Eosinophils Absolute Basophils Sodium Potassium Chloride Carbon Dioxide Anion Gap BUN Creatinine Est GFR (CKD-EPI 2020) Glucose Calcium Magnesium Total Bilirubin AST ALT Alkaline Phosphatase Total Protein Albumin Lipase Urine Color Yellow Urine Clarity Cloudy Urine pH 5.5 Ur Specific [place] 1.015 Urine Protein 100 H Urine Ketones Negative Urine Blood Large H Urine Nitrite Negative Urine Bilirubin Negative Urine Urobilinogen 0.2 Ur Leukocyte Esterase Small H Urine RBC Not Applicable Urine WBC >50 H Ur Epithelial Cells Not Applicable Urine Crystals Not Applicable Urine Bacteria Not Applicable Urine Mucus Not Applicable Ur Culture Indicated? Yes Urine Glucose >=1000 H COVID-19 Source SARS-CoV-2 (PCR) Influenza Type A (PCR) Influenza Type B (PCR) RSV (PCR) Patient ABO/Rh Antibody Screen Last Vital Signs Temp 36.1 C L 03/16/23 09:52 Pulse 115 H 03/16/23 14:11 Resp 15 03/16/23 12:10 BP 123/52 L 03/16/23 12:01 Pulse Ox 96 03/16/23 12:10 Time Spent Time spent with Patient: 55-74 minutes Time was spent: preparing to see the patient(eg.review tests), obtaining and/or reviewing separately otained hiistory, ordering medications,tests, procedures, referring, communicating with other health care taker, indepentently interpreting results, counseling the patient and care coordination
--- NOTE | 2023-03-16 16:04 | DI.RAD_ITS ---
Exam(s) XR PORTABLE CHEST AP EXAM: XR PORTABLE CHEST AP CLINICAL HISTORY: preop for a potential EGD. TECHNIQUE: 2D digital imaging was performed. COMPARISON: CR XR PORTABLE CHEST AP from 02/17/2023 FINDINGS: Single AP portable view. Heart size is upper normal. The mediastinum is not widened. Lungs are clear. No infiltrates nor obvious pleural effusions. IMPRESSION: No acute pulmonary findings on this single AP portable view of the chest. DATA REPOSITORY: RADIATION DOSE DELIVERED:
--- NOTE | 2023-03-16 16:35 | DI.VRAD_ITS ---
PROCEDURE INFORMATION: Exam: XR Chest Exam date and time: 03/16/2023 3:55 PM Age: 78 years old Clinical indication: Other: Preop for a potential egd TECHNIQUE: Imaging protocol: Radiologic exam of the chest. Views: 1 view. COMPARISON: CR XR PORTABLE CHEST AP 02/17/2023 1:53 PM FINDINGS: Lungs: There is left retrocardiac opacity which could be related to penetration/technical factors. Atelectasis or infection in this region is not excluded. A dedicated PA and lateral view of the chest would be beneficial. Pleural spaces: No pneumothorax. Heart/Mediastinum: There is cardiomegaly and mediastinal widening. However, this is similar to prior examination. Bones/joints: Skeletal degenerative changes. IMPRESSION: 1. There is left retrocardiac opacity which could be related to penetration/technical factors. Atelectasis or infection in this region is not excluded. Suggest dedicated PA and lateral view of the chest. 2. Other findings/details as above. Dictated and Authenticated by: Kinjal Paulino MD. Ordering:REBECCA Alejo MD
--- NOTE | 2023-03-16 16:36 | W.PC.ACHO ---
Registration Status: REG ER Primary Language: Preferred Language: Arabic ED Information & Data Chief Complaint Nausea/Vomit/Diar 03/16/23 11:14 Triage Note NVD x3 days unable to keep 03/16/23 09:35 food/meds down. able to drink small amounts of fluids Medical / Surgical History (Last Reviewed 03/16/23 @ 11:13 by Uvaldo Manuel NP) Palliative care patient Ambulatory dysfunction Obesity, morbid, BMI 40.0-49.9 Pulmonary hypertension Rheumatoid arteritis Hx of hyperlipidemia HTN (hypertension) Diabetes Atrial fibrillation (Last Reviewed 03/16/23 @ 11:13 by Uvaldo Manuel NP) History of cystoscopy History of hysterectomy Hx of cholecystectomy Most Recent Vital Signs Temperature 36.1 C L 03/16/23 09:52 Temperature Source Temporal Artery Scan 03/16/23 09:52 Pulse 115 H 03/16/23 14:11 Pulse 96 H 03/16/23 15:50 Respiratory Rate 13 03/16/23 15:50 Respiratory Effort Normal, Non-Labored 03/16/23 09:44 Blood Pressure 156/135 H 03/16/23 13:32 Blood Pressure Mean 140 03/16/23 13:32 Blood Pressure Position Supine 03/16/23 09:52 Pulse Oximetry 96 03/16/23 15:50 Oxygen Delivery Method Room Air 03/16/23 09:52 Oxygen Flow Rate 0 03/16/23 09:52 Allergies atorvastatin Adverse Reaction (Intermediate, Unverified 03/16/23 09:38) leg cramps lisinopril Adverse Reaction (Intermediate, Unverified 03/16/23 09:38) cough Precautions Isolation Standard precaution 03/16/23 09:44 Active Medications Generic Name Dose Route Start Last Admin Trade Name Freq PRN Reason Stop Dose Admin Iohexol 100 ml 03/16/23 11:30 03/16/23 11:28 Omnipaque 350 Mg/Ml 100 Ml Btl IJ 04/15/23 23:59 100 ml DIRECTED ZORAIDA Administration Sodium Chloride 0 ml 03/16/23 09:46 03/16/23 11:23 Normal Saline Flush 10 Ml Syr IVP 10 ml PRN PRN Administration Sodium Chloride 50 ml 03/16/23 11:30 03/16/23 11:24 Normal Saline - Diluent 50 Ml Vial IJ 50 ml .FOR DI USE ZORAIDA Administration IV IV Catheter Type [Right Saline Lock Forearm] IV Catheter Type [Upper arm] Peripheral IV IV Catheter Gauge [Right 20 Forearm] IV Catheter Gauge [Upper arm] 20 Diagnostics 03/16/23 03/16/23 03/16/23 Range/Units 15:45 12:56 12:34 WBC (4.4-10.8) 10^3/uL RBC (3.93-5.22) 10^6/uL Hgb (11.2-15.7) g/dL Hct (36.0-46.0) % MCV (80-95) fL MCH (27.0-33.0) pg MCHC (32.0-36.0) % RDW (11.7-14.6) % Plt Count (130-400) 10^3/uL MPV (8.0-11.0) fL Immature Gran % Neutrophils % Lymphocytes % Monocytes % Eosinophils % Basophils % Nucleated RBC % (0.0-0.3) % Absolute Neutrophils (1.2-6.7) 10^3/uL Absolute Lymphocytes (1.2-3.4) 10^3/uL Absolute Monocytes (0.1-0.8) 10^3/uL Absolute Eosinophils (0.0-0.7) 10^3/uL Absolute Basophils (0.0-0.2) 10^3/uL Sodium Potassium Chloride Carbon Dioxide Anion Gap BUN Creatinine Est GFR (CKD-EPI 2020) Glucose Calcium Magnesium Total Bilirubin AST ALT Alkaline Phosphatase Total Protein Albumin Lipase Procalcitonin Pending Urine Color Yellow (Yellow) Urine Clarity Cloudy (Clear) Urine pH 5.5 (5-8) Ur Specific [place] 1.015 (1.005-1.025) Urine Protein 100 H (Negative) mg/dL Urine Ketones Negative (Negative) mg/dL Urine Blood Large H (Negative) Urine Nitrite Negative (Negative) Urine Bilirubin Negative (Negative) Urine Urobilinogen 0.2 (Up to 0.2) mg/dL Ur Leukocyte Esterase Small H (Negative) Urine RBC Not Applicable Urine WBC >50 H (0-5) HPF Ur Epithelial Cells Not Applicable Urine Crystals Not Applicable Urine Bacteria Not Applicable Urine Mucus Not Applicable Ur Culture Indicated? Yes Urine Glucose >=1000 H (Negative) mg/dL COVID-19 Source Nasopharynx SARS-CoV-2 (PCR) Negative (Negative) Influenza Type A (PCR) Negative (Negative) Influenza Type B (PCR) Negative (Negative) RSV (PCR) Negative (Negative) Patient ABO/Rh Antibody Screen 03/16/23 03/16/23 Range/Units 10:25 09:55 WBC 8.56 (4.4-10.8) 10^3/uL RBC 4.32 (3.93-5.22) 10^6/uL Hgb 12.8 (11.2-15.7) g/dL Hct 38.4 (36.0-46.0) % MCV 89 (80-95) fL MCH 29.6 (27.0-33.0) pg MCHC 33.3 (32.0-36.0) % RDW 14.2 (11.7-14.6) % Plt Count 331 (130-400) 10^3/uL MPV 9.9 (8.0-11.0) fL Immature Gran % 0.4 Neutrophils % 76.6 Lymphocytes % 13.6 Monocytes % 7.6 Eosinophils % 1.2 Basophils % 0.6 Nucleated RBC % 0.0 (0.0-0.3) % Absolute Neutrophils 6.57 (1.2-6.7) 10^3/uL Absolute Lymphocytes 1.16 L (1.2-3.4) 10^3/uL Absolute Monocytes 0.65 (0.1-0.8) 10^3/uL Absolute Eosinophils 0.10 (0.0-0.7) 10^3/uL Absolute Basophils 0.05 (0.0-0.2) 10^3/uL Sodium 130 L Cancelled Potassium 3.5 Cancelled Chloride 96 L Cancelled Carbon Dioxide 26.6 Cancelled Anion Gap 7.4 Cancelled BUN 17 Cancelled Creatinine 1.3 H Cancelled Est GFR (CKD-EPI 2020) 42.09 Cancelled Glucose 454 H Cancelled Calcium 8.3 L Cancelled Magnesium 1.2 L Cancelled Total Bilirubin 0.5 Cancelled AST 12 L Cancelled ALT 16 Cancelled Alkaline Phosphatase 92 Cancelled Total Protein 6.8 Cancelled Albumin 2.5 L Cancelled Lipase 51 Cancelled Procalcitonin Urine Color (Yellow) Urine Clarity (Clear) Urine pH (5-8) Ur Specific [place] (1.005-1.025) Urine Protein (Negative) mg/dL Urine Ketones (Negative) mg/dL Urine Blood (Negative) Urine Nitrite (Negative) Urine Bilirubin (Negative) Urine Urobilinogen (Up to 0.2) mg/dL Ur Leukocyte Esterase (Negative) Urine RBC Urine WBC (0-5) HPF Ur Epithelial Cells Urine Crystals Urine Bacteria Urine Mucus Ur Culture Indicated? Urine Glucose (Negative) mg/dL COVID-19 Source SARS-CoV-2 (PCR) (Negative) Influenza Type A (PCR) (Negative) Influenza Type B (PCR) (Negative) RSV (PCR) (Negative) Patient ABO/Rh O Positive Antibody Screen NEGATIVE 03/16/23 15:45 Blood Culture - Pending Blood 03/16/23 15:32 Blood Culture - Pending Blood 03/16/23 12:56 Urine Culture - Pending Urine - Reflex from [id number] Documentation Fingerstick Glucose Start: 03/16/23 09:41 Freq: Status: Active Protocol: Activity Type Activity Date Activity User E-sign Co-sign Detail Recorded Client Recorded Date Recorded By Document 03/16/23 09:40 BKG DAEMON(10) [id number] 03/16/23 09:41 BKG DAEMON(10) Intake and Output - 24 Hour Total 03/16/23 09:33 thru 03/16/23 15:39 Intake Total 110 Balance 110 Weight 108.409 kg Intake: IV 110 Other: Stool Characteristics Soft Liquid Falls Risk Assessment History of Falls No History 03/16/23 09:44 Contributing Factors No Factors 03/16/23 09:44 Ambulatory Aids Independent 03/16/23 09:44 Tubes/Lines None 03/16/23 09:44 Gait Evaluation No gait disturbance 03/16/23 09:44 Fall Total Score 0 03/16/23 09:44 Level of Risk Standard/Low Risk 03/16/23 09:44 Problems (Last Reviewed 03/16/23 @ 11:13 by Uvaldo Manuel NP) Discharge planning issues (Acute) DVT prophylaxis (Acute) Heme + stool (Acute) Atrial fibrillation with RVR (Acute) Mild cognitive impairment (Acute) Type 2 diabetes mellitus with hyperglycemia (Chronic) Recurrent UTI (Acute) UTI (urinary tract infection) (Acute) Hydronephrosis with renal calculous obstruction (Acute) Diabetes (Chronic) Diarrhea (Acute) Gastrointestinal bleeding (Acute) Duodenal ulcer (Acute) v v v v v v v v v Sending and/or Receiving Nurses: Please use comment section below to note any information pertinent to the patient hand-off not included above. Information / Comments: Report received from:ANTONIO Castillo/SHAILA
[2023-03-16 16:54] LABS: Procalcitonin < 0.1 ng/mL
[2023-03-16] MEDS: Sucralfate 1 GM TAB PO ×2 (18:13→22:07)
--- NOTE | 2023-03-16 18:14 | W.PM.PROGNOT ---
Date of Service Date of service: 03/16/23 Time of Service: 18:14 Assessment and Plan Assessment and plan (1) Heme + stool: Status: Acute (2) Dizziness: Status: Acute (3) Hyperglycemia: Status: Acute (4) Atrial fibrillation with RVR: Status: Resolved (5) Mild cognitive impairment: Status: Acute (6) Non-adherence to medical treatment: Status: Acute (7) Type 2 diabetes mellitus with hyperglycemia: Status: Chronic (8) STEMI (ST elevation myocardial infarction): Status: Acute (9) Diabetes: Status: Chronic (10) Poorly controlled type 2 diabetes mellitus: Status: Acute (11) UTI (urinary tract infection): Status: Acute (12) Ambulatory dysfunction: (13) Pulmonary hypertension: (14) Obesity, morbid, BMI 40.0-49.9: (15) Rheumatoid arteritis: (16) Hx of hyperlipidemia: (17) HTN (hypertension): (18) History of cervical cancer: Status: Acute (19) Wheelchair dependent: Status: Chronic (20) Calculus of proximal right ureter: Status: Acute (21) Hydronephrosis with renal calculous obstruction: Status: Chronic (22) UTI (urinary tract infection): Status: Acute (23) IDDM (insulin dependent diabetes mellitus): Status: Chronic (24) Obstructive sleep apnea: Status: Suspected Subjective Subjective Interval history since last seen: Patient was admitted to the ICU because of A-fib with RVR. She is on apixaban. She has been having heme positive stools. Hemoglobin is 12.4. She is not overtly having black stools. Blood pressures have been stable. -Patient had an NSTEMI in 10/03. -She underwent cardiac catheterization and was found to have single-vessel disease. Attempts at revascularization of this vessel were unsuccessful and they recommended l lifelong dual antiplatelet therapy with aspirin and Plavix. -Echo 10/03: EF 59% Minimal valvular heart disease given age Severe right atrial dilation. Pulmonary hypertension could not be assessed. Patient has a known history of RA and is still on 5 mg of prednisone daily, DMARD daily, and is well as chronic narcotics She is diabetic and is on Victoza and Ozempic From H&P: Ms Chester is a 78 year old female with PMHx of frequent UTIs with a known chronic R hydronephrosis with a known large distal R ureteral stone, as well as h/o Afib on anticoagulation with apixaban, chronic GI bleeding, IDDM, mild cognitive impairment, medication noncompliance, who was brought to [facility] ED by ambulance for malaise, n/v/diarrhea/black stools. The patient was found to be heme + in the ED, though her hemoglobin was 12.8, not that different from her baseline of 11-13. The patient admitted to not taking antibiotics prescribed to her on her last ER visit on 02/25/23 (keflex). The patient did have a positive urinalysis on this presentation as well and has evidence of obstructive uropathy with a large stone on the R (as known) on CT today. Additionally, there is duodenitis vs duodenal ulcer seen on CT. The patient was started on IV PPI. Finally, on arrival to the ER, her HR was in the 90s (Afib); however, it did go up to 160s and required a push of diltiazem IV 10 mg to have the HR go down to low 100s, then loaded with her home cardizem CD 300 mg. Her magnesium and potassium were repleted. The patient received 10 units of regular insulin SC. Hospitalist admission to the ICU was requested. On my evaluation of the patient, she states that she started feeling sick 3-4 days ago and stopped taking all her medications at that time. She states she was able to drink, but was not able to eat due to nausea/vomiting. She describes dark red blood in her stools x 4, but none in the last 2 days. She describes BLQ pain, dysuria, urinary frequency, urgency. On my evaluation of her in the ICU, her HR is in the 80s. 04/05 CT: ABDOMEN: GI: There is significant circumferential edema of the entire duodenum with surrounding streaking. Edematous wall thickness is 8-9 mm. Consistent with severe duodenitis. There is a duodenal diverticulum again noted on the medial wall, similar to previous. There is no evidence of bowel obstruction. KIDNEYS:Significant right-sided hydronephrosis and hydroureter again noted with ureter dilated to 12 mm. There is a large calculus in the distal right ureter and there is a very thin catheter/stent in the lower right ureter extending from level of this stone into the urinary bladder. There is some enhancement of the wall of the ureter. Suspect possible infected urine. There are few tiny calculi in the right kidney remaining. Left kidney exhibits some in homogeneous enhancement which may also reflect infectious etiology such as pyelonephritis. Are few tiny cortical cysts noted and small calculus in the left kidney. The left ureter is not dilated. There are no radiopaque calculi in the urinary bladder. 03/06 Malena Johnson is a 77-year-old female with history of recurrent UTIs that has been on prophylactic antibiotic for the past year. She presents today with a feeling of unwell. Initially she missed the hat for urine specimens. She was given a couple of water and tried again. Specimen collected had a great milky appearance. Urinalysis unable to be done. Due to her other symptoms nursing was asked to reported a blood sugar of over 500. Elizabeth notes that she has been noncompliant with her medications. Recommended that she have further evaluation through the emergency room. She does have a history of sepsis. She expresses understanding. We retrieved the family from the waiting room. There was finding that her did not bring her by her son-in-law. With this further concern of mental status, we again noted the ER for further evaluation. She is willing and son-in-law to wheel her to the ER. EGD 10/2019 This 74-year-old woman presented in October with urosepsis. She also developed melena and was found to have a to have several duodenal ulcers. She had come into the hospital on Eliquis. She is also taking prednisone and Celebrex. She presents for follow-up upper endoscopy after several months of antacids. She denies any abdominal pain bloody or black stools. PROCEDURE DESCRIPTION: The patient is placed supine on the operating table and after induction of general anesthetic had the endoscope advanced into her esophagus under direct visualization. The scope was passed through the stomach and into the duodenum. This showed marked improvement with no evidence of the shallow or large ulcerations that were present before. She had an ulcer in the second portion of the duodenum as well as in the duodenal bulb previously. The stomach itself showed some minimal gastritis in the antrum. Biopsies were taken from this region to reevaluate for H. pylori. Retroflexed view of the fundus and lesser curvature was normal. The GE junction showed no inflammation masses Brown's or strictures. The air was suctioned from the stomach and the scope withdrawn with no other esophageal lesions found. She tolerated this portion of the procedure well and then had a procedure done with Dr. Fernandez. I think she can stop the Carafate. She should continue her proton pump inhibitor and consideration could be given to resuming her Eliquis. -I did discuss the case with Dr. Bro. Patient is currently hemodynamically stable and not actively bleeding. We will hold her Ozempic and maximally medically treat her with IV Protonix and Carafate. Ozempic and Xarelto will be held. We will check an echo in a.m. Once patient is more medically optimized then consider EGD. Because of her use of Ozempic/and the high risk of aspiration, anesthesia is going to want to do general anesthesia which I am not sure the patient is a candidate for. -Hold any potential GI irritants including prednisone/NSAIDs/iron/DMARDs -Blood sugars are also out of control. A1c in 03/06 was 9.8 -Patient also has a urinary stent in place in the face of an acute UTI. She was started on ceftriaxone. Cultures are pending. -I would highly recommend a urology consult. from reviewing the notes the stenting that has been there for over a year? And may be colonized with her continued repeat UTIs/and poorly controlled diabetes mellitus. -Further cardiac risk stratification by the hospitalist. - I will need to review the case with anesthesia. Patient also needs to get her A-fib under better control prior to any surgical intervention. -For now we will continue with conservative medical management. If there is any sign of GI bleeding then TXA should be administered. -This document was created with voice activated software and may contain errors. 60 mins spent revieweing chart and coordinating care. -Full surgical consult to follow Objective Last Vital Signs Temp 37.5 C 03/16/23 16:52 Pulse 101 H 03/16/23 17:16 Resp 15 03/16/23 17:16 BP 122/71 03/16/23 17:16 Pulse Ox 96 03/16/23 17:16 Laboratory Results - last 24 hr 03/16/23 03/16/23 03/16/23 09:55 10:25 12:34 WBC 8.56 RBC 4.32 Hgb 12.8 Hct 38.4 MCV 89 MCH 29.6 MCHC 33.3 RDW 14.2 Plt Count 331 MPV 9.9 Immature Gran % 0.4 Neutrophils % 76.6 Lymphocytes % 13.6 Monocytes % 7.6 Eosinophils % 1.2 Basophils % 0.6 Nucleated RBC % 0.0 Absolute Neutrophils 6.57 Absolute Lymphocytes 1.16 L Absolute Monocytes 0.65 Absolute Eosinophils 0.10 Absolute Basophils 0.05 Sodium Cancelled 130 L Potassium Cancelled 3.5 Chloride Cancelled 96 L Carbon Dioxide Cancelled 26.6 Anion Gap Cancelled 7.4 BUN Cancelled 17 Creatinine Cancelled 1.3 H Est GFR (CKD-EPI 2020) Cancelled 42.09 Glucose Cancelled 454 H Calcium Cancelled 8.3 L Magnesium Cancelled 1.2 L Total Bilirubin Cancelled 0.5 AST Cancelled 12 L ALT Cancelled 16 Alkaline Phosphatase Cancelled 92 Total Protein Cancelled 6.8 Albumin Cancelled 2.5 L Lipase Cancelled 51 Procalcitonin Urine Color Urine Clarity Urine pH Ur Specific [place] Urine Protein Urine Ketones Urine Blood Urine Nitrite Urine Bilirubin Urine Urobilinogen Ur Leukocyte Esterase Urine RBC Urine WBC Ur Epithelial Cells Urine Crystals Urine Bacteria Urine Mucus Ur Culture Indicated? Urine Glucose COVID-19 Source Nasopharynx SARS-CoV-2 (PCR) Negative Influenza Type A (PCR) Negative Influenza Type B (PCR) Negative RSV (PCR) Negative Patient ABO/Rh O Positive Antibody Screen NEGATIVE 03/16/23 03/16/23 12:56 15:45 WBC RBC Hgb Hct MCV MCH MCHC RDW Plt Count MPV Immature Gran % Neutrophils % Lymphocytes % Monocytes % Eosinophils % Basophils % Nucleated RBC % Absolute Neutrophils Absolute Lymphocytes Absolute Monocytes Absolute Eosinophils Absolute Basophils Sodium Potassium Chloride Carbon Dioxide Anion Gap BUN Creatinine Est GFR (CKD-EPI 2020) Glucose Calcium Magnesium Total Bilirubin AST ALT Alkaline Phosphatase Total Protein Albumin Lipase Procalcitonin < 0.1 Urine Color Yellow Urine Clarity Cloudy Urine pH 5.5 Ur Specific [place] 1.015 Urine Protein 100 H Urine Ketones Negative Urine Blood Large H Urine Nitrite Negative Urine Bilirubin Negative Urine Urobilinogen 0.2 Ur Leukocyte Esterase Small H Urine RBC Not Applicable Urine WBC >50 H Ur Epithelial Cells Not Applicable Urine Crystals Not Applicable Urine Bacteria Not Applicable Urine Mucus Not Applicable Ur Culture Indicated? Yes Urine Glucose >=1000 H COVID-19 Source SARS-CoV-2 (PCR) Influenza Type A (PCR) Influenza Type B (PCR) RSV (PCR) Patient ABO/Rh Antibody Screen Time Spent with Patient Time Spent with Patient: >50 minutes Time was spent: preparing to see the patient(eg.review tests), ordering medications,tests, procedures, referring, communicating with other health care program director, indepentently interpreting results and care coordination
[2023-03-16] MEDS: Insulin Aspart 300 UNITS/3 ML PEN SC (18:18)
[2023-03-16] MEDS: Pantoprazole 40 MG VIAL 80 MG IVP (18:38)
[2023-03-16 19:29] LABS: HCT 38.7 % (36.0-46.0); HGB 12.8 g/dL (11.2-15.7)
--- NOTE | 2023-03-16 21:45 | RT.EKG_ITS ---
APPROVED REPORT Exam: Resting ECG Reason for Exam: ordered in ED not recorded as completed Patient Location: I HR:90 bpm ECG Measurements Heart Rate 90 [place]IS [place] [id number] P [id number] QRSd 108 QRS 15 QT 410 T [id number] QTc 502 Conclusion Atrial fibrillation...V-rate 81-102, irreg A-activity Borderline low voltage, extremity leads...all extremity leads <0.6mV Nonspecific T abnormalities, anterior leads...T <-0.10mV, V2-V4
[2023-03-16] MEDS: buPROPion-CR 100 MG TABCR PO (22:06)
[2023-03-16] MEDS: Acetaminophen 325 MG TAB PO (22:07)
[2023-03-16] MEDS: Colestipol 1 GM TAB PO (22:07)
[2023-03-16] MEDS: Melatonin 3 MG TAB 9 MG PO (22:07)
[2023-03-16] MEDS: diphenhydrAMINE 25 MG CAP 50 MG PO (22:07)
[2023-03-16] MEDS: Mirtazapine 15 MG TAB PO (22:08)
[2023-03-17] VITALS (33 sets, daily range): BP systolic 105–132; BP diastolic 64–86; PULSE 72–98; RESP 10–22; TEMP 36.1–36.8; O2SAT 91–97
--- NOTE | 2023-03-17 02:12 | NUR.NOTE ---
Nursing Note: Patient resting comfortably, no acute distress, requested not to be awakened unless I call for you. Continuous EKG and SPO2 monitoring active. Alarms on.
[2023-03-17] MEDS: Sucralfate 1 GM TAB PO ×4 (05:25→21:18)
[2023-03-17] MEDS: Normal Saline Flush 10 ML SYR IVP ×2 (05:26→19:31)
[2023-03-17] MEDS: Insulin Aspart 300 UNITS/3 ML PEN SC ×4 (05:40→21:19)
[2023-03-17 06:47] LABS: Abs Immature Grans 0.02 10^3/uL (0.0-0.06); Absolute Basophil Count 0.03 10^3/uL (0.0-0.2); Absolute Eosinophil Count 0.35 10^3/uL (0.0-0.7); Absolute Monocyte Count 0.66 10^3/uL (0.1-0.8); Absolute Neutrophil Count 3.69 10^3/uL (1.2-6.7); Basophils % 0.5; Eosinophils % 5.3; HCT 36.2 % (36.0-46.0); HGB 11.9 g/dL (11.2-15.7); Immature Grans % 0.3; Lymphocytes % 28.6; MCH 29.9 pg (27.0-33.0); MCHC 32.9 % (32.0-36.0); MCV 91 fL (80-95); MPV 9.9 fL (8.0-11.0); Monocytes % 9.9; Neutrophils % 55.4; Platelet Count 282 10^3/uL (130-400); RBC 3.98 10^6/uL (3.93-5.22); RDW 14.5 % (11.7-14.6); RDW-SD 47.8 fL; WBC 6.65 10^3/uL (4.4-10.8)
[2023-03-17 07:18] LABS: Anion Gap 8.3 mmol/L (3-11); BUN 13 mg/dL (7-18); CO2 25.7 mmol/L (21.0-32.0); CREATININE 1.2 mg/dL (0.55-1.02); Calcium 8.4 mg/dL (8.5-10.1); Chloride 104 mmol/L (98-107); Estimated GFR 46.33 (mL/min/1.73m2); Ferritin 118 ng/mL (8-252); Folate 19.7 ng/mL (8.6-20.0); Glucose 153 mg/dL (74-106); Magnesium 1.7 mg/dL (1.8-2.4); Potassium 3.7 mmol/L (3.5-5.1); Sodium 138 mmol/L (136-145); Troponin I < 50 ng/L (<or=60)
--- NOTE | 2023-03-17 08:00 | DI.US_ITS ---
APPROVED REPORT EXAM: Comprehensive 2D, Doppler, and color-flow Echocardiogram Patient Location: In-Patient Room/Bed: [address] Specialist: Buck Cueva RDCS (AE) Indications: afib, h/o CAD Other Information Study Quality: Good. Technically limited study due to inability to position patient. Conclusion Mild concentric left ventricular hypertrophy. Mildly dilated left ventricle. Ejection fraction is 5 0 to 55%. There are no segmental wall motion abnormalities. Diastolic function is indeterminate. P atient is in atrial fibrillation with [id number] variation Normal right ventricular size and function Both atria are normal in size Mildly thickened mitral leaflets with mild regurgitation Normal tricuspid valve with mild regurgitation Wall motion Left Ventricle Left ventricle is mildly dilated. Left ventricular systolic function is borderline. Mild concentric l eft ventricular hypertrophy. There are no segmental wall motion abnormalities Indeterminate due to at rial fibrillation There is no ventricular septal defect visualized. LVEF is 50-55% Right Ventricle The right ventricle is normal size. The right ventricular systolic function is normal. Atria The left atrium size is normal. The right atrium size is normal. Aortic Valve The aortic valve is normal in structure. Aortic valve is trileaflet. There is no aortic valvular sten osis. No aortic regurgitation is present. Mitral Valve Mitral valve leaflets are mildly thickened. No evidence of mitral valve stenosis. Mild mitral regurgi tation. Tricuspid Valve The tricuspid valve is normal in structure. There is no tricuspid valve stenosis. Mild tricuspid regu rgitation. Pulmonic Valve The pulmonary valve is normal in structure. There is no pulmonic valvular stenosis. There is no pulmo kathy valvular regurgitation. Great Vessels The aortic root is normal in size. Ascending aorta is not well visualized. Aortic arch is not well vi sualized. IVC is normal in size and collapses >50% with inspiration. Pericardium There is no pericardial effusion. 2D Dimensions IVSD d PLAX 1.23 cm F: 0.6-1.0 Ao Root d 3.26 cm F: 2.7 - 3.3 LVPW d PLAX 1.26 cm F: 0.6 - 1.0 LVID d PLAX 5.57 cm F: 3.8 - 5.2 LVDs 4.17 cm F: 2.2 - 3.5 LV EF Teichholz 49.0 % FS 25.07 % LV EDV (Teich) 151.8 mL LV ESV (Teich) 77.4 mL Stroke Vol Index (Teich) 34.58 M-Mode TAPSE 1.57 cm (M/F) >1.7 Auto EF LV EDV A4C 121.9 mL LV EDV A2C 106.3 mL LV EDV BP LV ESV A4C 62.3 mL LV ESV A2C 55.8 mL LV ESV BP LVEF(%) A4C 48.9 % LVEF(%) A2C 47.5 % LVEF(%) BP LV SV A4C 59.5 ml LV SV A2C 50.5 ml LV SV BP LV CO A4C 4.0 L/min LV CO A2C 4.9 L/min LV CO BP HR A4C 67.67 BPM HR A2C 97.51 BPM LV EDV Index (BP) LA Volume LA Length A4C 7.3 cm LA Length A2C LA Area A4C s 25.84 cm2 LA Area A2C s LA Vol A4C A-L 77.29 mL LA Vol A2C A-L LA Vol Biplane A-L LA Vol A4C MOD 77.1 mL LA Vol A2C MOD LA Vol BP MOD RA Volume RA Area A4C 18.8 cm2 RA ESV A4C (A-L) 50.4mL RA Vol/BSA A4C A-L RA Length A4C 6.0 cm RA ESV A4C (MOD) 48.2mL LV Diastology MV E' medial 0.097 (>0.07 m/s) MV E Vmax 1.06 (0.4-1.3 m/s) MV E/E' MED 10.92 (<14) MV E' lateral 0.114 (>0.1 m/s) MV E/E' LAT 9.30 (<14) MV E' Average 0.106 m/s MV E/E'(average) 10.04 Aortic Valve AoV Vmax 1.37 m/s LVOT Vmax 1.05 m/s AoV Peak Grad 7.5 mmHg LVOT Peak Grad 4.4 mmHg AoV Area (Vmax) 1.48 cm2 LVOT VTI 0.211 m AoV VTI 0.273 m LVOT Mean Grad 2.7 mmHg AoV Mean Flako. 1.01 m/s LVOT SV 40.55 mL AoV Mean Grad 4.6 mmHg LVOT Diam s 1.55 cm AoV Area (VTI) 1.48 cm2 Velocity Ratio 0.77 Mitral Valve MV DT 156 (160-240 msec) MR Vmax 4.30 m/s MV Vmax TIPS 1.16 m/s MR VTI 1.332 m MV Mean Grad 1.8 (<2mmHg) MR Peak Grad 73.8 mmHg MV VTI 0.274 m MR Mean Grad 53.3 mmHg MR PISA Radius 0.46 cm MR Aliasing Velocity 0.30 m/s Pulmonary Valve PV Vmax 0.77 (0.5-1.5 m/s) RVOT Vmax 0.62 m/s PV Peak Grad 2.4 mmHg RVOT Peak Gr. 1.5 mmHg PV Mean Flako 0.52 m/s RVOT VTI 0.122 m PV Mean Grad 1.3 mmHg RVOT Mean Gr. 0.9 mmHg
[2023-03-17] MEDS: Multivitamin TAB 1 TAB PO (08:31)
[2023-03-17] MEDS: Colestipol 1 GM TAB PO (08:31)
[2023-03-17] MEDS: Tamsulosin 0.4 MG CAPCR PO (08:31)
[2023-03-17] MEDS: Metoprolol CR 100 MG TABCR 200 MG PO (08:31)
[2023-03-17] MEDS: Vitamins B Comp w/C TAB 1 TAB PO (08:31)
[2023-03-17] MEDS: traZODone 50 MG TAB PO (08:31)
[2023-03-17] MEDS: Cyanocobalamin 500 MCG TAB 1000 MCG PO (08:32)
[2023-03-17] MEDS: Calcium 600mg/Vit D 200U TAB 1 TAB PO (08:32)
[2023-03-17] MEDS: Magnesium Oxide 400 MG TAB PO (08:32)
[2023-03-17] MEDS: dilTIAZem CD 300 MG CAPCR PO (08:32)
[2023-03-17] MEDS: buPROPion-CR 100 MG TABCR PO (08:33)
[2023-03-17] MEDS: Pantoprazole 40 MG VIAL IVP ×2 (08:33→19:31)
--- NOTE | 2023-03-17 08:48 | PGE_ITS ---
Date of Service Date of service: 03/17/23 Time of Service: 08:49 Assessment and Plan Assessment and plan (1) Atrial fibrillation with RVR: Status: Resolved Assessment and plan: In setting of noncompliance with medical regimen and acute infection. Continue home medications but hold anticoagulation. Anticoagulation at home is xarelto and not apixaban, after clarification with pharmacy. (2) Recurrent UTI: Status: Acute Assessment and plan: Present on admission. Urine C&S with GNR 10-50,000 CFU; however, she might actually be more infected than that considering obstructive uropathy. Continue empiric ceftriaxone. I am also continuing prophylactic bactrim. Await urology consult. (3) Duodenal ulcer: Status: Acute Assessment and plan: NPO until evaluation by surgery and further surgical plans are clorified. GI bleeding has clinically resolved. Continue protonix + carafate. I am not sure that the description of the dark red blood per rectum matches the findings on CT. (4) Hydronephrosis with renal calculous obstruction: Status: Chronic Assessment and plan: As above (5) Type 2 diabetes mellitus with hyperglycemia: Status: Chronic Assessment and plan: Clarified with pharmacy: it does not appear that the patient is taking any insulin at home. The patient thinks she is taking some sort of insulin, but she is not sure and she is not consistent. I d/c'ed long acting insulin. I only have a SSI ordered at this time, but changed it to sensitive. Monitor BGs and titrate insulins. (6) Heme + stool: Status: Acute Assessment and plan: As above (7) DVT prophylaxis: Status: Acute Assessment and plan: SCDs Hold chemical DVT ppx in setting of acute bleeding (8) Discharge planning issues: Status: Acute Assessment and plan: DNR Transfer out of the ICU. C/s palliative care and PT. Subjective Subjective Interval history since last seen: Ms Chester states she is feeling better. She states she is feeling uneasy to her stomach today because she just took all her pills, but otherwise she states she is feeling well. No abdominal pain, no bleeding since presentation to the hospital, no dizziness, CP, SOB. She is not sure what insulin or how many insulins or what does of insulin she is taking. Remains rate controlled. Would like to know when she can eat. Exam Narrative Exam Narrative: General: A very pleasant elderly obese female, A&Ox2, appears comfortable,on RA HEENT: EOMI, MMM Cardiovascular: irregularly irregular rhythm, not tachycardic, no m/r/g Lungs: CTAB Gastrointestinal: soft, nontender, nondistended Genitourinary: deferred Extremities: no edema BLEs, I am unable to palpate pedal pulses B, no lesions on B feet Objective Last Vital Signs Temp 36.5 C 03/17/23 07:34 Pulse 72 03/17/23 07:34 Resp 22 03/17/23 07:34 BP 116/75 03/17/23 07:34 Pulse Ox 96 03/17/23 07:34 Laboratory Results - last 24 hr 03/16/23 03/16/23 03/16/23 09:55 10:25 12:34 WBC 8.56 RBC 4.32 Hgb 12.8 Hct 38.4 MCV 89 MCH 29.6 MCHC 33.3 RDW 14.2 Plt Count 331 MPV 9.9 Immature Gran % 0.4 Neutrophils % 76.6 Lymphocytes % 13.6 Monocytes % 7.6 Eosinophils % 1.2 Basophils % 0.6 Nucleated RBC % 0.0 Absolute Neutrophils 6.57 Absolute Lymphocytes 1.16 L Absolute Monocytes 0.65 Absolute Eosinophils 0.10 Absolute Basophils 0.05 Sodium Cancelled 130 L Potassium Cancelled 3.5 Chloride Cancelled 96 L Carbon Dioxide Cancelled 26.6 Anion Gap Cancelled 7.4 BUN Cancelled 17 Creatinine Cancelled 1.3 H Est GFR (CKD-EPI 2020) Cancelled 42.09 Glucose Cancelled 454 H Calcium Cancelled 8.3 L Magnesium Cancelled 1.2 L Ferritin Total Bilirubin Cancelled 0.5 AST Cancelled 12 L ALT Cancelled 16 Alkaline Phosphatase Cancelled 92 Troponin I Total Protein Cancelled 6.8 Albumin Cancelled 2.5 L Lipase Cancelled 51 Folate Procalcitonin Urine Color Urine Clarity Urine pH Ur Specific [place] Urine Protein Urine Ketones Urine Blood Urine Nitrite Urine Bilirubin Urine Urobilinogen Ur Leukocyte Esterase Urine RBC Urine WBC Ur Epithelial Cells Urine Crystals Urine Bacteria Urine Mucus Ur Culture Indicated? Urine Glucose COVID-19 Source Nasopharynx SARS-CoV-2 (PCR) Negative Influenza Type A (PCR) Negative Influenza Type B (PCR) Negative RSV (PCR) Negative Patient ABO/Rh O Positive Antibody Screen NEGATIVE 03/16/23 03/16/2323 12:56 15:45 19:13 WBC RBC Hgb 12.8 Hct 38.7 MCV MCH MCHC RDW Plt Count MPV Immature Gran % Neutrophils % Lymphocytes % Monocytes % Eosinophils % Basophils % Nucleated RBC % Absolute Neutrophils Absolute Lymphocytes Absolute Monocytes Absolute Eosinophils Absolute Basophils Sodium Potassium Chloride Carbon Dioxide Anion Gap BUN Creatinine Est GFR (CKD-EPI 2020) Glucose Calcium Magnesium Ferritin Total Bilirubin AST ALT Alkaline Phosphatase Troponin I Total Protein Albumin Lipase Folate Procalcitonin < 0.1 Urine Color Yellow Urine Clarity Cloudy Urine pH 5.5 Ur Specific [place] 1.015 Urine Protein 100 H Urine Ketones Negative Urine Blood Large H Urine Nitrite Negative Urine Bilirubin Negative Urine Urobilinogen 0.2 Ur Leukocyte Esterase Small H Urine RBC Not Applicable Urine WBC >50 H Ur Epithelial Cells Not Applicable Urine Crystals Not Applicable Urine Bacteria Not Applicable Urine Mucus Not Applicable Ur Culture Indicated? Yes Urine Glucose >=1000 H COVID-19 Source SARS-CoV-2 (PCR) Influenza Type A (PCR) Influenza Type B (PCR) RSV (PCR) Patient ABO/Rh Antibody Screen 03/17/23 03/17/23 03/17/23 05:36 05:36 05:36 WBC 6.65 RBC 3.98 Hgb 11.9 Hct 36.2 MCV 91 MCH 29.9 MCHC 32.9 RDW 14.5 Plt Count 282 MPV 9.9 Immature Gran % 0.3 Neutrophils % 55.4 Lymphocytes % 28.6 Monocytes % 9.9 Eosinophils % 5.3 Basophils % 0.5 Nucleated RBC % 0.0 Absolute Neutrophils 3.69 Absolute Lymphocytes 1.90 Absolute Monocytes 0.66 Absolute Eosinophils 0.35 Absolute Basophils 0.03 Sodium 138 Potassium 3.7 Chloride 104 Carbon Dioxide 25.7 Anion Gap 8.3 BUN 13 Creatinine 1.2 H Est GFR (CKD-EPI 2020) 46.33 Glucose 153 H Calcium 8.4 L Magnesium 1.7 L Ferritin 118 Total Bilirubin AST ALT Alkaline Phosphatase Troponin I < 50 Cancelled Total Protein Albumin Lipase Folate 19.7 Cancelled Procalcitonin Urine Color Urine Clarity Urine pH Ur Specific [place] Urine Protein Urine Ketones Urine Blood Urine Nitrite Urine Bilirubin Urine Urobilinogen Ur Leukocyte Esterase Urine RBC Urine WBC Ur Epithelial Cells Urine Crystals Urine Bacteria Urine Mucus Ur Culture Indicated? Urine Glucose COVID-19 Source SARS-CoV-2 (PCR) Influenza Type A (PCR) Influenza Type B (PCR) RSV (PCR) Patient ABO/Rh Antibody Screen Time Spent with Patient Time Spent with Patient: 35-49 minutes Time was spent: preparing to see the patient(eg.review tests), obtaining and/or reviewing separately otained hiistory, ordering medications,tests, procedures, referring, communicating with other health child care attendant, indepentently interpreting results, counseling the patient and care coordination
[2023-03-17] MEDS: MAGNESIUM SULFATE 2 GM/50 ML BAG IVPB (08:49)
[2023-03-17] MEDS: Furosemide 20 MG TAB PO (10:51)
[2023-03-17] MEDS: predniSONE 5 MG TAB PO (10:51)
[2023-03-17] MEDS: FLUoxetine 20 MG CAP PO (10:52)
--- NOTE | 2023-03-17 10:58 | INITIAL_ITS ---
Date of service: 03/17/23 Time of Service: 10:59 Care Management Initial Assmt Initial Assessment REASON FOR HOSPITALIZATION:: UTI with obstructive uropathy, GI bleed PREVIOUS FUNCTIONAL STATUS/SOCIAL/FAMILY SUPPORTS:: Elizabeth lives in an apartment in [place] with her Delmis. She has one daughter who lives locally and several grandchildren, many of whom live out of state. Elizabeth is disabled secondary to rheumatoid arthritis and has been wheelchair bound for the past 7 years. Elizabeth has [facility] highest needs. She has hired housekeepers through [employer] that come twice a week. Elizabeth is independent with ADLs, does her own cooking and some of her own shopping. CURRENT FUNCTIONAL STATUS:: Elizabeth was lying in bed when VARSHA met with her. She stated that she is doing ok, but is not happy that she isn't able to eat. Her diet was advanced to clear liquids, which she is also not happy about. She stated that she prefers to be home, and not in the hospital. She describes her daily life, indicating that she is independent at baseline with ADL's. She makes her own meals, provides her own personal care, transfers independently, and helps to care for her . She stated that she has housekeepers twice a week, which have offered to help with meals, but she prefers to cook. She stated that she has two cats and a dog at home that she cares for. She reports that she sometimes doesn't take her medications when she doesn't feel well. VARSHA discussed SNF to help her get stronger before returning home, and she stated that she is planning to return home, and does not want to go to SNF. VARSHA stated that her plan to be successful at home needs to incorporate a plan for her to take her medications properly, as if she doesn't she will end up back at the hospital. She agreed to be open about her discharge plan, and is agreeable to increased services at home. VARSHA will continue to follow. ADVANCE DIRECTIVES:: COLST on file; Delmis () listed as HCA. Has patient been provided with info about the portal/API?: Yes Did the patient sign up for the portal?: Yes CODE STATUS:: DNR INSURANCE COVERAGE / FINANCIAL ISSUES:: MCR. MARTINEZ. CURRENT HOME/COMMUNITY SERVICES/EQUIPMENT:: Elizabeth is w/c bound- has an electric w/c. She has a shower chair and grab bars. She has [facility] highest needs. PRIMARY CARE PHYSICIAN:: Marleen Warren POTENTIAL DISCHARGE NEEDS:: Evaluations for further needs; increased services at home vs SNF placement; follow up appointments. PATIENT/FAMILY EDUCATION NEEDS:: Review discharge instructions and limitations, discussion of self care needs including ask me three. ANTICIPATED BARRIERS TO DISCHARGE:: Elizabeth has not been taking her medications at home; she may need increased services vs SNF. TRANSPORTATION:: To be determined by disposition; w/c van likely. PLAN:: Anticipate Elizabeth will return home with a resumption of services, increased if possible. She will be driven home via private vehicle by her daughter. She will follow up with her PPC and discharge plan of care. CM will continue to follow. PFSH All Active Problems (Updated 03/16/23 @ 19:09 by Oralia Garcia DO) Discharge planning issues (Acute) DVT prophylaxis (Acute) Heme + stool (Acute) Dizziness (Acute) Hyperglycemia (Acute) Mild cognitive impairment (Acute) Non-adherence to medical treatment (Acute) Advanced care planning/counseling discussion (Acute) Type 2 diabetes mellitus with hyperglycemia (Chronic) STEMI (ST elevation myocardial infarction) (Acute) Cardiac catheterization performed 11/02. There is single-vessel disease. Recannulization was not successful. Lifelong anticoagulation with dual antiplatelet therapy. COVID (Acute) Recurrent UTI (Acute) History of cervical cancer (Acute) Insomnia (Acute) Goals of care, counseling/discussion (Acute) Wheelchair dependent (Chronic) motorized Laceration of ankle, right (Acute) Fracture of toe of right foot (Acute) Cellulitis (Acute) Poorly controlled type 2 diabetes mellitus (Acute) UTI (urinary tract infection) (Acute) Hydronephrosis with renal calculous obstruction (Chronic) Calculus of proximal right ureter (Acute) Diabetes (Chronic) Atrial fibrillation (Chronic) Hypokalemia (Chronic) Psychogenic polydipsia (Chronic) UTI (urinary tract infection) (Acute) Weakness (Acute) Adjustment disorder (Acute) Advance directive on file (Acute) Atrial fibrillation with RVR (Acute) Acute diastolic CHF (congestive heart failure) (Acute) Bilateral nephrolithiasis (Chronic) Steroid dependent (Chronic) IDDM (insulin dependent diabetes mellitus) (Chronic) Diarrhea (Acute) UTI (urinary tract infection) (Acute) Dehydration (Acute) Ureterolithiasis (Acute) Hyperglycemia (Acute) Hyperglycemia due to type 1 diabetes mellitus (Acute) Gastrointestinal bleeding (Acute) C. difficile colitis (Acute) Duodenal ulcer (Acute) Medical History Palliative care patient Ambulatory dysfunction Obesity, morbid, BMI 40.0-49.9 Pulmonary hypertension mild Rheumatoid arteritis Hx of hyperlipidemia HTN (hypertension) Diabetes Atrial fibrillation Surgical History History of cystoscopy History of hysterectomy Hx of cholecystectomy Family History Mother , in her late 60s from endometrial cancer Endometrial cancer Obesity Father , in his early 70s from alcoholic cirrhosis Alcohol abuse Cirrhosis, alcoholic Sister , in her early 70s from cervical cancer Cervical cancer Brother , age 60 from lung cancer Lung cancer Smoker Brother , age 50 from AIDS, history of IVDU AIDS IVDU (intravenous drug user) Brother , age 22 from suicide Suicide Brother , in psychiatric hospital ? COD IVDU (intravenous drug user) Daughter No problems noted. 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, 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, 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, 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 Pets and animals: Yes Pets and animals: cat(s) and dog(s) Do you think of yourself as: straight/heterosexual Current gender identity: female What is your relationship status?: How often do you talk on the phone with friends or family?: twice per week How often do you get together with friends or relatives?: twice per week Panel score (0-1 are the most socially isolated patients): 2 What type of physical activity do you participate in: assisted ambulation and sedentary lifestyle Frequency: does not exercise Special terra needs: No Seatbelt use: always Water heater temp set <120 deg: Yes Working smoke detector in home: Yes Fire extinguisher in home: Yes Firearms in home: Yes Do you feel safe at home: Yes Do you feel safe in your relationship?: Yes
--- NOTE | 2023-03-17 11:33 | UCONE_ITS ---
Date of service: 03/17/23 Time of Service: 15:17 Assessment and Plan Assessment and plan (1) Hydronephrosis: Status: Resolved (2) Ureterolithiasis: Status: Acute (3) UTI (urinary tract infection): Status: Acute Assessment and plan: This patient has been rather challenging to manage. Our usual recommendation and in fact our recommendation back in August 2021 was to have some type of definitive therapy of her ureteral stone. She was scheduled for her surgery, but the procedure was canceled when her cardiac status changed. Since we have known about her right ureteral stone and hydronephrosis for over a year now, I cannot in good conscience consider her for urgent or emergent surgery unless she showed signs and symptoms of sepsis. Even in that case, at this point, she would only be a candidate for a stent placement at our facility. I again reached out to our anesthesia colleagues. In reviewing her records, they found that she has not followed up with cardiology since her NH in 2021. A 6 month followup was recommended. At a minimum, the patient would need to reestablish with cardiology (at some location) before she would be considered a candidate for elective surgery at our facility History of Present Illness History of Present Illness Chief Complaint: Right ureteral stone Narrative: This is a 78-year-old woman who is well-known to our service. She has a history of kidney stones and recurrent urinary tract infections. On at least one occasion, she has had urosepsis related to an obstructing ureteral stone. Her most recent urologic surgery was about 2 years ago. About 18 months ago, she was identified as having right hydronephrosis and a right ureteral stone. We actually had her scheduled for ureteroscopy and holmium laser lithotripsy in September 2021, but the patient developed an NH and was no longer a candidate for elective surgery at our facility. She was not having flank pain and she was not willing to travel to a tertiary care center for her surgery. Her right hydronephrosis and her right ureteral stone have remained untreated since then. Knowing her risk for developing urosepsis from her untreated obstructing ureteral stone, we started her on a prophylactic antibiotic. I saw the patient during her last hospitalization. She had bacteruia but her blood cultures showed no bacterial growth. I again reached out to our anesthesia providers. They reviewed her chart and found that she has an untreated coronary artery lesion that could not be stented. She had periodic chest pain that was relieved with nitroglycerin. She required significant amounts of pressor intraoperatively when she had her last surgical procedure here (before her NH). In spite of a somewhat reassuring echocardiogram, the opinion is that she is still not a candidate for any type of elective procedure here at our facility. She is currently admitted with nausea, vomiting and heme positive stools. She stopped taking all of her medications about 3 or 4 days prior to admission, so her chronic atrial fibrillation was not well-controlled. It is unclear if she is taking her diabetic medications. On admission, she was not complaining of right flank pain. Her initial urinalysis was suspicious for UTI. Blood and urine cultures were taken. She is not complaining of pain, fevers or chills at this time. Her biggest concern is hoping that her diet can be advanced. Review of Systems Constitutional Constitutional: Denies chills and Denies fever(s) Cardiovascular Cardiovascular: Denies chest pain at rest Gastrointestinal Gastrointestinal: Reports hematochezia and Reports nausea Musculoskeletal Musculoskeletal: Reports back pain and Reports arthralgias Neurologic Neurologic: Reports memory loss and Denies seizure-like activity Psychiatric Psychiatric: Reports memory loss PFS All Active Problems (Updated 03/16/23 @ 19:09 by Oralia Garcia DO) Discharge planning issues (Acute) DVT prophylaxis (Acute) Heme + stool (Acute) Dizziness (Acute) Hyperglycemia (Acute) Mild cognitive impairment (Acute) Non-adherence to medical treatment (Acute) Advanced care planning/counseling discussion (Acute) Type 2 diabetes mellitus with hyperglycemia (Chronic) STEMI (ST elevation myocardial infarction) (Acute) Cardiac catheterization performed 11/02. There is single-vessel disease. Recannulization was not successful. Lifelong anticoagulation with dual antiplatelet therapy. COVID (Acute) Recurrent UTI (Acute) History of cervical cancer (Acute) Insomnia (Acute) Goals of care, counseling/discussion (Acute) Wheelchair dependent (Chronic) motorized Laceration of ankle, right (Acute) Fracture of toe of right foot (Acute) Cellulitis (Acute) Poorly controlled type 2 diabetes mellitus (Acute) UTI (urinary tract infection) (Acute) Hydronephrosis with renal calculous obstruction (Chronic) Calculus of proximal right ureter (Acute) Diabetes (Chronic) Atrial fibrillation (Chronic) Hypokalemia (Chronic) Psychogenic polydipsia (Chronic) UTI (urinary tract infection) (Acute) Weakness (Acute) Adjustment disorder (Acute) Advance directive on file (Acute) Atrial fibrillation with RVR (Acute) Acute diastolic CHF (congestive heart failure) (Acute) Bilateral nephrolithiasis (Chronic) Steroid dependent (Chronic) IDDM (insulin dependent diabetes mellitus) (Chronic) Diarrhea (Acute) UTI (urinary tract infection) (Acute) Dehydration (Acute) Ureterolithiasis (Acute) Hyperglycemia (Acute) Hyperglycemia due to type 1 diabetes mellitus (Acute) Gastrointestinal bleeding (Acute) C. difficile colitis (Acute) Duodenal ulcer (Acute) Medical History Palliative care patient Ambulatory dysfunction Obesity, morbid, BMI 40.0-49.9 Pulmonary hypertension mild Rheumatoid arteritis Hx of hyperlipidemia HTN (hypertension) Diabetes Atrial fibrillation Surgical History History of cystoscopy History of hysterectomy Hx of cholecystectomy Family History Mother , in her late 60s from endometrial cancer Endometrial cancer Obesity Father , in his early 70s from alcoholic cirrhosis Alcohol abuse Cirrhosis, alcoholic Sister , in her early 70s from cervical cancer Cervical cancer Brother , age 60 from lung cancer Lung cancer Smoker Brother , age 50 from AIDS, history of IVDU AIDS IVDU (intravenous drug user) Brother , age 22 from suicide Suicide Brother , in psychiatric hospital ? COD IVDU (intravenous drug user) Daughter No problems noted. 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, 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, 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 Pets and animals: Yes Pets and animals: cat(s) and dog(s) Do you think of yourself as: straight/heterosexual Current gender identity: female What is your relationship status?: How often do you talk on the phone with friends or family?: twice per week How often do you get together with friends or relatives?: twice per week Panel score (0-1 are the most socially isolated patients): 2 What type of physical activity do you participate in: assisted ambulation and sedentary lifestyle Frequency: does not exercise Special terra needs: No Seatbelt use: always Water heater temp set <120 deg: Yes Working smoke detector in home: Yes Fire extinguisher in home: Yes Firearms in home: Yes Do you feel safe at home: Yes Do you feel safe in your relationship?: Yes Exam Narrative Exam Narrative: She does not appears sick or toxic Her vital signs are documented elsewhere She is awake and alert Results Last Vital Signs Temp 36.5 C 03/17/23 07:34 Pulse 72 03/17/23 07:34 Resp 22 03/17/23 07:34 BP 116/75 03/17/23 07:34 Pulse Ox 96 03/17/23 07:34 Labs 03/17/23 05:36 03/17/23 05:36 Labs: Laboratory Results - last 24 hr 03/16/23 03/16/23 03/16/23 12:34 12:56 15:45 WBC RBC Hgb Hct MCV MCH MCHC RDW Plt Count MPV Immature Gran % Neutrophils % Lymphocytes % Monocytes % Eosinophils % Basophils % Nucleated RBC % Absolute Neutrophils Absolute Lymphocytes Absolute Monocytes Absolute Eosinophils Absolute Basophils Sodium Potassium Chloride Carbon Dioxide Anion Gap BUN Creatinine Est GFR (CKD-EPI 2020) Glucose Calcium Magnesium Ferritin Troponin I Folate Procalcitonin < 0.1 Urine Color Yellow Urine Clarity Cloudy Urine pH 5.5 Ur Specific [place] 1.015 Urine Protein 100 H Urine Ketones Negative Urine Blood Large H Urine Nitrite Negative Urine Bilirubin Negative Urine Urobilinogen 0.2 Ur Leukocyte Esterase Small H Urine RBC Not Applicable Urine WBC >50 H Ur Epithelial Cells Not Applicable Urine Crystals Not Applicable Urine Bacteria Not Applicable Urine Mucus Not Applicable Ur Culture Indicated? Yes Urine Glucose >=1000 H COVID-19 Source Nasopharynx SARS-CoV-2 (PCR) Negative Influenza Type A (PCR) Negative Influenza Type B (PCR) Negative RSV (PCR) Negative 03/16/23 03/17/2323 19:13 05:36 05:36 WBC 6.65 RBC 3.98 Hgb 12.8 11.9 Hct 38.7 36.2 MCV 91 MCH 29.9 MCHC 32.9 RDW 14.5 Plt Count 282 MPV 9.9 Immature Gran % 0.3 Neutrophils % 55.4 Lymphocytes % 28.6 Monocytes % 9.9 Eosinophils % 5.3 Basophils % 0.5 Nucleated RBC % 0.0 Absolute Neutrophils 3.69 Absolute Lymphocytes 1.90 Absolute Monocytes 0.66 Absolute Eosinophils 0.35 Absolute Basophils 0.03 Sodium 138 Potassium 3.7 Chloride 104 Carbon Dioxide 25.7 Anion Gap 8.3 BUN 13 Creatinine 1.2 H Est GFR (CKD-EPI 2020) 46.33 Glucose 153 H Calcium 8.4 L Magnesium 1.7 L Ferritin 118 Troponin I < 50 Cancelled Folate 19.7 Procalcitonin Urine Color Urine Clarity Urine pH Ur Specific [place] Urine Protein Urine Ketones Urine Blood Urine Nitrite Urine Bilirubin Urine Urobilinogen Ur Leukocyte Esterase Urine RBC Urine WBC Ur Epithelial Cells Urine Crystals Urine Bacteria Urine Mucus Ur Culture Indicated? Urine Glucose COVID-19 Source SARS-CoV-2 (PCR) Influenza Type A (PCR) Influenza Type B (PCR) RSV (PCR) 03/17/23 05:36 WBC RBC Hgb Hct MCV MCH MCHC RDW Plt Count MPV Immature Gran % Neutrophils % Lymphocytes % Monocytes % Eosinophils % Basophils % Nucleated RBC % Absolute Neutrophils Absolute Lymphocytes Absolute Monocytes Absolute Eosinophils Absolute Basophils Sodium Potassium Chloride Carbon Dioxide Anion Gap BUN Creatinine Est GFR (CKD-EPI 2020) Glucose Calcium Magnesium Ferritin Troponin I Folate Cancelled Procalcitonin Urine Color Urine Clarity Urine pH Ur Specific [place] Urine Protein Urine Ketones Urine Blood Urine Nitrite Urine Bilirubin Urine Urobilinogen Ur Leukocyte Esterase Urine RBC Urine WBC Ur Epithelial Cells Urine Crystals Urine Bacteria Urine Mucus Ur Culture Indicated? Urine Glucose COVID-19 Source SARS-CoV-2 (PCR) Influenza Type A (PCR) Influenza Type B (PCR) RSV (PCR)
--- NOTE | 2023-03-17 13:47 | TELEFU_ITS ---
Date of service: 03/17/23 Time of Service: 13:47 Nutrition Note NOTE: Received consult re: routine diabetes education Pt is 78yo female who is currently NPO pending surgical consult for duodenal ulcer. She is a poor historian regarding things as medication (including insulin/diabetes meds), blood sugar history/trends. She is not in the best moods about not being able to eat currently. Most recent a1c was 9.8% on 02/18/23 and has been higher than target (lowest reading seen was 2011 at 7.7%). Wt los of 44.7kg noted over 3 years. PT states this is combination of intentional and unintentional wt loss. Currently on prednisone rx which is contributing to higher glucose recently. C urrently ordered for insulin aspart on sensitive sliding scale q6hrs. Will await advancement of diet to offer diabetes education and stress outpt services for continued education and meal planning support. Recommend initiation of basal insulin - 25units insulin Glargine SC daily and adjust aspart sliding scale to moderate. Will monitor for diet advancement/toleration and approach for diabetes education once patient is less anxious about her eating status. Time Spent in Nutritional Counseling and Treatment: 15 minutes
[2023-03-17] MEDS: cefTRIAXone 2 GM/50 ML BAG IVPB (14:12)
--- NOTE | 2023-03-17 15:37 | PHA.REVIEW2 ---
Pharmacy Admission Review Admission Clinical Review Admission Pharmacy Review: Discharge planning issues (Acute) DVT prophylaxis (Acute) Heme + stool (Acute) Dizziness (Acute) Hyperglycemia (Acute) Mild cognitive impairment (Acute) Non-adherence to medical treatment (Acute) STEMI (ST elevation myocardial infarction) (Acute) Recurrent UTI (Acute) History of cervical cancer (Acute) Poorly controlled type 2 diabetes mellitus (Acute) UTI (urinary tract infection) (Acute) Calculus of proximal right ureter (Acute) UTI (urinary tract infection) (Acute) Diarrhea (Acute) Ureterolithiasis (Acute) Gastrointestinal bleeding (Acute) Duodenal ulcer (Acute) atorvastatin Adverse Reaction (Intermediate, Unverified 03/16/23 09:38) leg cramps lisinopril Adverse Reaction (Intermediate, Unverified 03/16/23 09:38) cough Resuscitation Status DNR Height 5 ft 6 in Weight 106.7 kg Pharmacy Admission Review Renal Dosing Renal Dosing: BUN 13 mg/dL (7-18) 03/17/23 05:36 Creatinine 1.2 mg/dL (0.55-1.02) H 03/17/23 05:36 Medications needing adjustments: Reviewed (CrCl 47.69) Anticoagulation Anticoagulation: Hgb 11.9 g/dL (11.2-15.7) 03/17/23 05:36 Hct 36.2 % (36.0-46.0) 03/17/23 05:36 Plt Count 282 10^3/uL (130-400) 03/17/23 05:36 Creatinine 1.2 mg/dL (0.55-1.02) H 03/17/23 05:36 DVT Prophylaxis: N/A (Currently on hold due to GI bleed) Opiate Usage Evaluate Pain Scale/Pains Meds: Reviewed (PRN oxycodone) Scheduled Bowel Reg ordered if on Opiates?: No (PRN Miralax and docusate) Relevant Labs Relevant Labs: Sodium 138 mmol/L (136-145) 03/17/23 05:36 Potassium 3.7 mmol/L (3.5-5.1) 03/17/23 05:36 Chloride 104 mmol/L (98-107) 03/17/23 05:36 Magnesium 1.7 mg/dL (1.8-2.4) L 03/17/23 05:36 Electrolytes, C-Reactive P, ESR: Reviewed (Mg slightly increased from 1.2 yesterday to 1.7 today. Was given IVPB magnesium sulfate twice yesterday. ) DM Control DM Control: Reviewed (Type 2) Insulin Dosing, Diabetic Medication: Has order for SS insulin. Glucose was 224 at 1150 and had a glucose level of 454 at 1025 on 03/16/23. Seems like patient has not been taking her at home medications including her insulin and metformin. Cardiac Review Cardiac Review: Troponin I < 50 ng/L (<or=60) 03/17/23 05:36 Troponin I Cancelled 03/17/23 05:36 BP, HR, EF%: Reviewed (WNL) QTc Review QTc: Reviewed (502 03/17/23) IV to PO Switch IV Medications: Reviewed Home Meds Home Med List reviewed: Intervened Relevent Home Meds Not ordered & why?: Patients Xarelto is on hold due to current GI bleed. The med list from PCP's office was compared to the fill history from the pharmacy, some of the home med list was updated using this information but not all meds could be verified. Provider made aware. Nursing was checking to see if the patients medications could be brought in for review. Waiting on med rec from patient / telepharmacy to clarify how patient takes her home meds (how she actually takes them versus how they are prescribed as this may be different and there is likely some compliance issues based on the information that has been reviewed up to this point). Daughter brought in patients bubblepack from which has not been open, does not look like patient has been taking her meds for a while. Provider made aware and telepharmacy consult canceled. Current Meds Current Medication Order Review: Reviewed Pharmacy Antibiotic Review Relevant Labs: Relevant Labs 03/16/23 15:45 Procalcitonin < 0.1 Pharmacy Antibiotic Activity: C/S review and Reviewed, no change Comments: Blood cultures are pending, urine culture showed mixed gram positive shantanu. No fever or elevated WBC.
[2023-03-17 19:19] LABS: C Diff PCR Negative (Negative)
[2023-03-17] MEDS: Rosuvastatin 10 MG TAB PO (19:32)
--- NOTE | 2023-03-17 21:03 | W.PM.PROGNOT ---
Date of Service Date of service: 03/17/23 Time of Service: 21:03 Assessment and Plan Assessment and plan (1) Acute duodenitis: Status: Acute Assessment and plan: I did discuss the patient's case today with Dr. Bro, anesthesia, and Dr. Fernandez. Patient has a history of medical noncompliance. After reviewing her chart, she never followed up with cardiology since she has had her IL/cardiac catheterization. Patient is noncompliant in her medications so it is unclear as to what medication she has or has not been taken. Anesthesia would prefer her to be seen by cardiology prior to any anesthetic interventions. -Patient was supposed of had her urinary stent changed and has missed multiple appointments and opportunities to have this done. She would need to have general anesthesia to have stent changed -Patient is feeling better and demanding to eat. Her hemoglobin has been stable. She has not had a bowel movement since last p.m. At this point we will continue to treat her bleed with maximal medical therapy including IV Protonix and p.o. Carafate. We can start her on a clear diet for the next 24 hours. She has severe disease by CT scan. She has had an EGD 3 years ago. She has a history of duodenal eyes ulcers. She has no signs of free air or active bleeding at this time. This document was created with voice activated software and may contain errors. 30 mins spent with the patient today. (2) Heme + stool: Status: Acute (3) Hyperglycemia: Status: Acute (4) Atrial fibrillation with RVR: Status: Resolved (5) Mild cognitive impairment: Status: Acute (6) Non-adherence to medical treatment: Status: Acute (7) Type 2 diabetes mellitus with hyperglycemia: Status: Chronic (8) STEMI (ST elevation myocardial infarction): Status: Acute (9) Poorly controlled type 2 diabetes mellitus: Status: Acute (10) UTI (urinary tract infection): Status: Acute (11) Hydronephrosis with renal calculous obstruction: Status: Chronic (12) Atrial fibrillation: Status: Chronic (13) Steroid dependent: Status: Chronic (14) IDDM (insulin dependent diabetes mellitus): Status: Chronic (15) UTI (urinary tract infection): Status: Acute Qualifiers: Urinary tract infection type: site unspecified Hematuria presence: with hematuria Qualified Code(s): N39.0 - Urinary tract infection, site not specified; R31.9 - Hematuria, unspecified (16) Obesity, morbid, BMI 40.0-49.9: (17) Pulmonary hypertension: (18) Rheumatoid arteritis: (19) Hx of hyperlipidemia: (20) HTN (hypertension): Objective Last Vital Signs Temp 36.7 C 03/17/23 15:24 Pulse 75 03/17/23 17:03 Resp 19 03/17/23 17:03 BP 117/67 03/17/23 17:03 Pulse Ox 94 03/17/23 17:03 Laboratory Results - last 24 hr 03/17/23 03/17/23 03/17/23 05:36 05:36 05:36 WBC 6.65 RBC 3.98 Hgb 11.9 Hct 36.2 MCV 91 MCH 29.9 MCHC 32.9 RDW 14.5 Plt Count 282 MPV 9.9 Immature Gran % 0.3 Neutrophils % 55.4 Lymphocytes % 28.6 Monocytes % 9.9 Eosinophils % 5.3 Basophils % 0.5 Nucleated RBC % 0.0 Absolute Neutrophils 3.69 Absolute Lymphocytes 1.90 Absolute Monocytes 0.66 Absolute Eosinophils 0.35 Absolute Basophils 0.03 Sodium 138 Potassium 3.7 Chloride 104 Carbon Dioxide 25.7 Anion Gap 8.3 BUN 13 Creatinine 1.2 H Est GFR (CKD-EPI 2020) 46.33 Glucose 153 H Calcium 8.4 L Magnesium 1.7 L Ferritin 118 Troponin I < 50 Cancelled Folate 19.7 Cancelled Stl C.difficile Tox PCR 03/17/23 17:28 WBC RBC Hgb Hct MCV MCH MCHC RDW Plt Count MPV Immature Gran % Neutrophils % Lymphocytes % Monocytes % Eosinophils % Basophils % Nucleated RBC % Absolute Neutrophils Absolute Lymphocytes Absolute Monocytes Absolute Eosinophils Absolute Basophils Sodium Potassium Chloride Carbon Dioxide Anion Gap BUN Creatinine Est GFR (CKD-EPI 2020) Glucose Calcium Magnesium Ferritin Troponin I Folate Stl C.difficile Tox PCR Negative Time Spent with Patient Time Spent with Patient: 25-34 minutes Time was spent: preparing to see the patient(eg.review tests), ordering medications,tests, procedures, referring, communicating with other health sub acute care nurse, indepentently interpreting results, counseling the patient and care coordination
[2023-03-17] MEDS: Melatonin 3 MG TAB 9 MG PO (21:18)
[2023-03-17] MEDS: diphenhydrAMINE 25 MG CAP 50 MG PO (21:18)
--- NOTE | 2023-03-17 22:04 | TELEP.MEDR_ITS ---
Date of service: 03/17/23 Time of Service: 22:04 [facility] Home Med Rec Allergies Allergies: atorvastatin Adverse Reaction (Intermediate, Unverified 03/16/23 09:38) leg cramps lisinopril Adverse Reaction (Intermediate, Unverified 03/16/23 09:38) cough Interview Person Interviewed: * patient Quality Quality of Interview/Accuracy of Medication List: Fair Sources Sources used to compile medication list: [facility]ication List, [facility] and [employer] Changes made to Home Medication List: ADDITIONS: * none DELETIONS: * vitamin D * fish oil * vitamin C CHANGES: * none Additional Notes Additional Notes: * Patient doesn't know the sliding scale for insulin from memory. She says she has a chart at home, but noone can get to it now as her is in the hospital as well. Recommended Changes Recommended Changes(reason for recommendation): * none Attestation: The home medication list is now updated to the best of my knowledge and is ready to be reconciled by the provider. Please contact the [facility] Medication Reconciliation Pharmacist at for any questions.
--- NOTE | 2023-03-17 22:04 | TELEP.MEDREC ---
Date of service: 03/17/23 [facility] All[facility]ies Allergies: atorvastatin Adverse Reaction (Intermediate, Unverified 03/16/23 09:38) leg cramps lisinopril Adverse Reaction (Intermediate, Unverified 03/16/23 09:38) cough Interview Person Interviewed: patient Quality Quality of Interview/Accuracy of Medication List: Fair Sources Sources used to compile medication list: [facility] Medication List, [facility] and [employer] Changes made to Home Medication List: ADDITIONS: none DELETIONS: vitamin D fish oil vitamin C CHANGES: none Additional Notes Additional Notes: Patient doesn't know the sliding scale for insulin from memory. She says she has a chart at home, but noone can get to it now as her is in the hospital as well. Recommended Changes Recommended Changes(reason for recommendation): none Attestation: The home medication list is now updated to the best of my knowledge and is ready to be reconciled by the provider. Please contact the [facility] Medication Reconciliation Pharmacist at for any questions.
[2023-03-18 03:10] VITALS: BP 97/57; PULSE 93; RESP 18; TEMP 36.6; O2SAT 94
[2023-03-18 07:04] LABS: Abs Immature Grans 0.01 10^3/uL (0.0-0.06); Absolute Basophil Count 0.03 10^3/uL (0.0-0.2); Absolute Eosinophil Count 0.26 10^3/uL (0.0-0.7); Absolute Lymphocyte Count 0.77 10^3/uL (1.2-3.4); Absolute Monocyte Count 0.51 10^3/uL (0.1-0.8); Absolute Neutrophil Count 3.37 10^3/uL (1.2-6.7); Basophils % 0.6; Eosinophils % 5.3; HCT 35.3 % (36.0-46.0); HGB 11.3 g/dL (11.2-15.7); Immature Grans % 0.2; Lymphocytes % 15.6; MCH 29.7 pg (27.0-33.0); MCV 93 fL (80-95); MPV 9.8 fL (8.0-11.0); Monocytes % 10.3; Platelet Count 252 10^3/uL (130-400); RBC 3.81 10^6/uL (3.93-5.22); RDW 14.6 % (11.7-14.6); RDW-SD 49.2 fL; WBC 4.95 10^3/uL (4.4-10.8)
[2023-03-18 07:33] LABS: Anion Gap 9.4 mmol/L (3-11); BUN 11 mg/dL (7-18); CO2 24.6 mmol/L (21.0-32.0); CREATININE 1.3 mg/dL (0.55-1.02); Calcium 8.4 mg/dL (8.5-10.1); Chloride 104 mmol/L (98-107); Estimated GFR 42.09 (mL/min/1.73m2); Glucose 213 mg/dL (74-106); Potassium 3.4 mmol/L (3.5-5.1); Sodium 138 mmol/L (136-145)
--- NOTE | 2023-03-18 07:51 | NUR.NOTE ---
Nursing Note: pt wants to leave AMA, pt refused all nursing care including morning medications and VS, pt also refused all CHUCK SPLITTER care, charge nurse notified and Dr. Bro notfied
--- NOTE | 2023-03-18 09:09 | NUR.NOTE ---
Nursing Note: pt left AMA, pt was advised of risk, all PIV access was removed, all personal belongings were returned, pt was escorted down to lobby by this nurse to wait for ride d/t pt being wheelchair bound
--- NOTE | 2023-03-18 09:47 | DSE_ITS ---
Date of service: 03/18/23 Time of Service: 09:48 DS: Diagnosis Discharge Diagnosis (1) Acute duodenitis: Status: Acute (2) Heme + stool: Status: Acute (3) Hyperglycemia: Status: Acute (4) Atrial fibrillation with RVR: Status: Resolved (5) Mild cognitive impairment: Status: Acute (6) Non-adherence to medical treatment: Status: Acute (7) Type 2 diabetes mellitus with hyperglycemia: Status: Chronic (8) STEMI (ST elevation myocardial infarction): Status: Acute (9) Poorly controlled type 2 diabetes mellitus: Status: Acute (10) UTI (urinary tract infection): Status: Acute (11) Hydronephrosis with renal calculous obstruction: Status: Chronic (12) Atrial fibrillation: Status: Chronic (13) Steroid dependent: Status: Chronic (14) IDDM (insulin dependent diabetes mellitus): Status: Chronic (15) Obesity, morbid, BMI 40.0-49.9: (16) Pulmonary hypertension: (17) Rheumatoid arteritis: (18) Hx of hyperlipidemia: (19) HTN (hypertension): Discharge Plan Disposition Patient Disposition: Against Medical Advice Condition: Fair Discharge Details Reason For Visit: UTI w/obstructiveuropathy,GI bleed w/ duodenal Admit Date/Time: 03/16/23 14:43 Admit Provider: Sapna Bro Attending Provider: Sapna Bro Primary Care Provider: Marleen Warren [facility] Course Hospital Course: Ms Chester is a 78 year old female with PMHx of medication noncompliance, CAD, uncontrolled T2DM who may or may not be taking insulin (it is not currently prescribed, but she thinks she is taking it), Afib, prescribed anticoagulation with xarelto, known nephrolithiasis causing obstructive uropathy and stones, h/o duodenal ulcer, who was a patient on [facility] hospitalist service from 03/16/23 until 03/18/23 when she left AMA, initially admited to the ICU with Afib w/ RVR, UTI, G I bleeding with evidence of duodenitis +/- duodenal ulcer on the CT, hyperglycemia. Her HR was controlled with initiation of her normally prescribed diltiazem and metoprolol. Her H/H was stable and she did not require a blood transfusion. She was evaluated by general surgery who recommended medical management of her GI bleeding as it had already clinically resolved. The patient's anticoagulation was not administered during her admission and it appears that she was not taking it at home as her bubble packs brought in from home had not been opened. Her hyperglycemia resolved with the use of corrective insulin. Her urine grew mixed gram positive shantanu. She was treated with ceftriaxone empirically. Urology evaluated the patient to try to set up a plan for her obstructive uropathy due to a R ureteral stone with R hydronephrosis. Anesthesia did not clear the patient to undergo nonurgent/nonemergent procedures (which cystoscopy/stent placement would be) until she follows up with cardiology. From the duodenitis stand point, the patient was treated with IV PPI and carafate. She was initially NPO, then tolerated a clear liquid diet. There was no hemodynamically significant bleeding during her hospitalization. This morning, she is choosing to leave AMA not explaining any reasons other than that she hates it here. I spoke to her personally. She verbalizes that she will not stay no matter what and acknowledges the risk of getting sicker or even dying. She made her own transportation arrangements. No new prescriptions are being sent on discharge. I did ask the care managers to make an APS referral as the patient's , who is usually her caregiver, is currently hospitalized at [facility] and I question the patient's safety at home at this time. Care for patient as well as completion of her discharge summary on day she left AMA was 45 minutes. Home Meds and New Rx's Prescriptions: No Action ferrous fumarate 325 mg (106 mg iron) tablet 325 mg PO DAILY Darius Durand U-300 Insulin 300 unit/mL (1.5 mL) insulin pen 100 unit subcut DAILY oxycodone 10 mg tablet 10 mg PO TID PRN PRN sulfamethoxazole-trimethoprim 400-80 mg tablet 1 tab PO DAILY Qty: 90 3RF Rx Instructions: Prophylactic antibiotic for UTI prevention magnesium oxide 400 mg (241.3 mg magnesium) tablet 400 mg PO DAILY diphenhydramine HCl 50 mg capsule 50 mg PO QHS PRN furosemide [Lasix] 20 mg tablet 20 mg PO QPM Rx Instructions: 1 tablet by mouth every evening metoprolol succinate 200 mg capsule,sprinkle,ER 24hr 200 mg PO DAILY trazodone 50 mg tablet 50 mg PO HS melatonin 10 MG capsule 10 mg PO HS prednisone 5 MG tablet 5 mg PO DAILY Calcium 600 + D(3) 600 mg calcium- 200 unit Capsule 1 cap PO DAILY coenzyme Q10 100 mg Capsule 100 mg PO DAILY Humalog KwikPen Insulin 200 unit/mL (3 mL) insulin pen 30 unit SUBCUT AC Patient Comments: SLIDING SCALE BEFORE EACH MEAL (patient has chart at home) Rx Instructions: BEFORE EACH MEAL vitamin B complex Tablet 1 tab PO DAILY tamsulosin 0.4 mg Capsule 0.4 mg PO DAILY Qty: 14 0RF Saccharomyces boulardii [Florastor] 250 mg capsule 250 mg PO BID Qty: 14 0RF diltiazem HCl 300 mg capsule,extended release 24hr 300 mg PO DAILY fluoxetine 20 mg capsule 20 mg PO DAILY Patient Comments: TAKE ONE CAPSULE BY MOUTH EVERY DAY leflunomide 10 mg tablet 10 mg PO DAILY rosuvastatin 20 mg tablet 20 mg PO HS nitroglycerin 0.4 mg tablet, sublingual 0.4 mg sublingual Q5M PRN Ozempic 1 mg/dose (4 mg/3 mL) pen injector 1 mg subcut QWEEK Rx Instructions: every FRIDAY Xarelto 15 mg tablet 15 mg PO QPM Rx Instructions: daily with the evening meal pantoprazole 40 mg Tablet,Delayed Release (Dr/Ec) 40 mg PO DAILY metformin 500 mg tablet extended release 24 hr 500 mg PO DAILY Adults 50 Plus 0.4 mg-300 mcg- 250 mcg tablet 1 tab PO DAILY cyanocobalamin (vitamin B-12) 1,000 mcg tablet 1,000 mcg PO DAILY vitamin B complex Capsule 1 cap PO DAILY Multivitamin 50 Plus Tablet 1 tab PO DAILY Patient Comments: Take 1 tablet by mouth once a day Discharge Instructions Instructions: Duodenitis (DC), Urinary Tract Infection in Older Adults (DC) Referrals: Andres Fernandez MD [ [facility] STAFF PHYSICIAN] - Ayaka Campos MD [ [facility] STAFF PHYSICIAN] - Marleen Warren MD [Primary Care Provider] - Oralia Garcia DO [OSTEOPATHIC DOCTOR] - Activity:: Activity as Tolerated Equipment/Supplies:: No Equipment Needed Diet:: As Tolerated Discharge Orders Discharge Orders: Discharge Order (Routine); Ordered 03/18/23 Ordered By: Sapna Bro Discharge Data Discharge Date/Time-TO BE ENTERED AT DEPARTURE: 03/18/23 09:15 DS: Summary Time Spent with Patient providing and/or coordinating discharge services: Greater than 30 minutes Status at Discharge Functional status at discharge: wheelchair bound Overall status at discharge: patient is progressing back to baseline Mental Status: mental status grossly normal Speech and Movement: speech and movement normal Mood: dysthymic mood Affect: hostile Exam Narrative Exam Narrative: General: A very pleasant elderly obese female, A&Ox2, on RA, anxious/agitated HEENT: EOMI, MMM Cardiovascular: not auscultated. Lungs: nonlabored breathing Gastrointestinal: soft, obese, not visibly distended. Extremities: no edema BLEs Psych Mental Status: mental status grossly normal Speech and Movement: speech and movement normal Mood: dysthymic mood Affect: hostile DS: Data Vitals/I&O Vitals and I&O: Vital Signs Temperature 36.6 C 03/18/23 03:10 Temperature Source Tympanic 03/18/23 03:10 Pulse 93 H 03/18/23 03:10 Pulse Rhythm Irregular 03/17/23 22:00 Pulse 83 03/17/23 17:03 Respiratory Rate 18 03/18/23 03:10 Respiratory Effort Normal, Non-Labored 03/17/23 22:00 Respiratory Depth Normal 03/17/23 22:00 Respiratory Pattern Normal 03/17/23 22:00 Blood Pressure 97/57 L 03/18/23 03:10 Blood Pressure Mean 83 03/17/23 17:03 Blood Pressure Position Supine 03/17/23 07:43 Pulse Oximetry 94 03/18/23 03:10 Oxygen Delivery Method Room Air 03/18/23 03:10 Oxygen Flow Rate 0 03/18/23 03:10 Pain Level 0 03/18/23 07:35 Comment PT refused vital signs by [employer] COUNSELOR but reported no pain. 03/18/23 07:35 Intake & Output 03/17/23 03/17/23 03/18/23 11:59 23:59 11:59 Intake Total 460 / 1955 1495 / 1955 Output Total 655 / 1580 925 / 1580 600 / 600 Balance -195 / 375 570 / 375 -600 / -600 Weight 106.7 kg Intake: IV 50 / 100 50 / 100 Oral 410 / 1855 1445 / 1855 Output: Urine 655 / 1305 650 / 1305 600 / 600 Stool 275 / 275 Other: Urine Color Yellow Yellow Yellow Urine Appearance Clear Cloudy Cloudy Urine Odor Normal Comment BSC mixed with liquid brown stool Stool Occult Blood Negative Stool Size Small Large Stool Characteristics Liquid Liquid Brown Brown Voiding Methods Bedside Commode Bedside Commode Bedside Commode Data Completed and Pending Completed studies during hospitalization [Text1]: CT abdomen/pelvis: 1. Compared to the prior CT scan of 02/04/2022 there is again noted a thin caliber catheter or stent in the lower right ureter extending from just below an obstructing calculus or calcified mass in the ureter at this le wilbur down into the urinary bladder lumen. The right ureter is again noted be dilated above this level as is the right kidney. There are few tiny calculi remaining in the dilated right kidney. 2. Left kidney enhancement pattern may reflect pound nephritis. There is no hydronephrosis on the left side. 3. There is severe circumferential edema of the entire duodenum consistent with severe duodenitis. There is surrounding streaking but no free air in this region. Pocket of air seen medially at this level is most probably in a duodenal diverticulum. 4. Other findings as above. CXR: No acute pulmonary findings on this single AP portable view of the chest. Echo: Mild concentric left ventricular hypertrophy. Mildly dilated left ventricle. Ejection fraction is 50 to 55%. There are no segmental wall motion abnormalities. Diastolic function is indeterminate. Patient is in atrial fibrillation with [id number] variation Normal right ventricular size and function Both atria are normal in size Mildly thickened mitral leaflets with mild regurgitation Normal tricuspid valve with mild regurgitation Labs on day of discharge: Labs from last 24 hours 03/18/23 03/17/23 06:26 17:28 WBC 4.95 RBC 3.81 L Hgb 11.3 Hct 35.3 L MCV 93 MCH 29.7 MCHC 32.0 RDW 14.6 Plt Count 252 MPV 9.8 Immature Gran % 0.2 Neutrophils % 68.0 Lymphocytes % 15.6 Monocytes % 10.3 Eosinophils % 5.3 Basophils % 0.6 Nucleated RBC % 0.0 Absolute Neutrophils 3.37 Absolute Lymphocytes 0.77 L Absolute Monocytes 0.51 Absolute Eosinophils 0.26 Absolute Basophils 0.03 Sodium 138 Potassium 3.4 L Chloride 104 Carbon Dioxide 24.6 Anion Gap 9.4 BUN 11 Creatinine 1.3 H Est GFR (CKD-EPI 2020) 42.09 Glucose 213 H Calcium 8.4 L Magnesium 2.0 Stl C.difficile Tox PCR Negative Preliminary micro results at discharge 03/16/23 15:32 Blood Culture - Preliminary Blood NO GROWTH 24 HOURS 03/16/23 15:45 Blood Culture - Preliminary Blood NO GROWTH 24 HOURS PFSH All Active Problems (Updated 03/17/23 @ 21:06 by Oralia Garcia DO) Acute duodenitis (Acute) Discharge planning issues (Acute) DVT prophylaxis (Acute) Heme + stool (Acute) Dizziness (Acute) Hyperglycemia (Acute) Mild cognitive impairment (Acute) Non-adherence to medical treatment (Acute) Advanced care planning/counseling discussion (Acute) Type 2 diabetes mellitus with hyperglycemia (Chronic) STEMI (ST elevation myocardial infarction) (Acute) Cardiac catheterization performed 11/02. There is single-vessel disease. Recannulization was not successful. Lifelong anticoagulation with dual antiplatelet therapy. COVID (Acute) Recurrent UTI (Acute) History of cervical cancer (Acute) Insomnia (Acute) Goals of care, counseling/discussion (Acute) Wheelchair dependent (Chronic) motorized Laceration of ankle, right (Acute) Fracture of toe of right foot (Acute) Cellulitis (Acute) Poorly controlled type 2 diabetes mellitus (Acute) UTI (urinary tract infection) (Acute) Hydronephrosis with renal calculous obstruction (Chronic) Calculus of proximal right ureter (Acute) Diabetes (Chronic) Atrial fibrillation (Chronic) Hypokalemia (Chronic) Psychogenic polydipsia (Chronic) UTI (urinary tract infection) (Acute) Weakness (Acute) Adjustment disorder (Acute) Advance directive on file (Acute) Atrial fibrillation with RVR (Acute) Acute diastolic CHF (congestive heart failure) (Acute) Bilateral nephrolithiasis (Chronic) Steroid dependent (Chronic) IDDM (insulin dependent diabetes mellitus) (Chronic) Diarrhea (Acute) UTI (urinary tract infection) (Acute) Dehydration (Acute) Ureterolithiasis (Acute) Hyperglycemia (Acute) Hyperglycemia due to type 1 diabetes mellitus (Acute) Gastrointestinal bleeding (Acute) C. difficile colitis (Acute) Duodenal ulcer (Acute) Medical History Palliative care patient Ambulatory dysfunction Obesity, morbid, BMI 40.0-49.9 Pulmonary hypertension mild Rheumatoid arteritis Hx of hyperlipidemia HTN (hypertension) Diabetes Atrial fibrillation Surgical History History of cystoscopy History of hysterectomy Hx of cholecystectomy Family History Mother , in her late 60s from endometrial cancer Endometrial cancer Obesity Father , in his early 70s from alcoholic cirrhosis Alcohol abuse Cirrhosis, alcoholic Sister , in her early 70s from cervical cancer Cervical cancer Brother , age 60 from lung cancer Lung cancer Smoker Brother , age 50 from AIDS, history of IVDU AIDS IVDU (intravenous drug user) Brother , age 22 from suicide Suicide Brother , in psychiatric hospital ? COD IVDU (intravenous drug user) Daughter No problems noted. 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, 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, 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, 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 Pets and animals: Yes Pets and animals: cat(s) and dog(s) Do you think of yourself as: straight/heterosexual Current gender identity: female What is your relationship status?: How often do you talk on the phone with friends or family?: twice per week How often do you get together with friends or relatives?: twice per week Panel score (0-1 are the most socially isolated patients): 2 What type of physical activity do you participate in: assisted ambulation and sedentary lifestyle Frequency: does not exercise Special terra needs: No Seatbelt use: always Water heater temp set <120 deg: Yes Working smoke detector in home: Yes Fire extinguisher in home: Yes Firearms in home: Yes Do you feel safe at home: Yes Do you feel safe in your relationship?: Yes Time Spent with Patient Time Spent with Patient: 45-69 minutes Time was spent: preparing to see the patient(eg.review tests), obtaining and/or reviewing separately otained hiistory, ordering medications,tests, procedures, referring, communicating with other health home care companion, indepentently interpreting results, counseling the patient and care coordination
--- NOTE | 2023-03-18 10:18 | PT.INNT ---
PT Notes Visit Reasons: UTI w/obstructiveuropathy,GI bleed w/ duodenal Patient left AMA. No skilled services provided during this episode fo care.
--- NOTE | 2023-03-18 12:45 | CMDISCH_ITS ---
Date of service: 03/18/23 Time of Service: 12:45 LACE Index Scoring Tool Questions: Length of Stay (in days): 2 Was the patient admitted via the E.D.?: Yes Comorbidities: Previous M.I., Diabetes w/o Complication and Congestive Heart Failure E.D. Visits: 2 Answers: Total Score: 12 Risk of Readmission: High Risk Care Management Discharge Plan Reason for Hospitalization: UTI with obstructive uropathy, GI bleed Discharge Plan: Elizabeth chose to leave [place] today. VARSHA met with her to discuss this choice, and she was unwilling to remain at [facility]. She stated that she wants to be home, and doesn't want to feel like a prisoner here. She stated that she will take her medications at home, and understands that in order to stay home, it is necessary for her to take her medications as prescribed. She stated that her daughter will pick her up, and has the skelton to her house. VARSHA informed [facility], and asked the provider for a resumption of HH services. She will follow up with her PCP and community supports. Patient/Family Education Needs: Review discharge instructions and limitations, discussion of self care needs including ask me three. Services Needed at Discharge: Home Health Care Services (resume HH RN)
== END 2023-03-18 09:15 | disposition left against medical advice (07) | DRG 689 ==
LOC: ER 14:27 → ICU 16:43 → MS 03-17 20:48
PROVIDERS: Admitting Provider Internal Medicine; Emergency Provider Nurse Practitioner Family; PCP Family Medicine; Visit Provider Internal Medicine
DX: N13.6 Pyonephrosis (principal); K26.0 Acute duodenal ulcer with hemorrhage; K29.81 Duodenitis with bleeding; K92.1 Melena; I48.91 Unspecified atrial fibrillation; I25.2 Old myocardial infarction; Z91.199 Patient's noncompliance with other medical treatment and regimen due to unspecified reason; G31.84 Mild cognitive impairment of uncertain or unknown etiology; E11.65 Type 2 diabetes mellitus with hyperglycemia; G47.00 Insomnia, unspecified; Z85.41 Personal history of malignant neoplasm of cervix uteri; Z99.3 Dependence on wheelchair; E87.6 Hypokalemia; R53.1 Weakness; R63.1 Polydipsia; Z79.52 Long term (current) use of systemic steroids; Z79.4 Long term (current) use of insulin; E86.0 Dehydration; E66.01 Morbid (severe) obesity due to excess calories; E78.5 Hyperlipidemia, unspecified; I10 Essential (primary) hypertension; I27.20 Pulmonary hypertension, unspecified; Z87.891 Personal history of nicotine dependence; Z68.38 Body mass index [BMI] 38.0-38.9, adult; Z66 Do not resuscitate; Z79.84 Long term (current) use of oral hypoglycemic drugs; R42 Dizziness and giddiness; G47.33 Obstructive sleep apnea (adult) (pediatric); M06.9 Rheumatoid arthritis, unspecified; R31.9 Hematuria, unspecified; I00 Rheumatic fever without heart involvement; R11.2 Nausea with vomiting, unspecified; R19.7 Diarrhea, unspecified
CPT/HCPCS: 00123; 36410; 36415; 36416; 80048; 80053; 82962; 83690; 84145; 86850; 86900; 86901; 87040; 87493; 87637; 93306; 96361; 96365; 96366; 96368; 96372; 96375; 99222; 99232; 99285; 71045; 74177; 81003; 81015; 82728; 82746; 83735; 84484; 85014; 85018; 85025; 87086; 93005; 93010; 99223; 99239; J0696; J0780; J2405; J3490; J7512

== ENCOUNTER → 2023-03-17 07:46 | Outpatient (BNVA) | payer MEDICARE, MEDICAID, SELFPAY | PROVIDERS: PCP Family Medicine; Referring Provider Family Medicine; Visit Provider Urology ==

== ENCOUNTER 2023-03-31 18:51 | Outpatient (REF) | payer MEDICARE, MEDICAID, SELFPAY ==
[2023-03-31 19:04] LABS: HCT 40.3 % (36.0-46.0); HGB 12.8 g/dL (11.2-15.7); MCH 29.6 pg (27.0-33.0); MCHC 31.8 % (32.0-36.0); MCV 93 fL (80-95); MPV 10.2 fL (8.0-11.0); Platelet Count 401 10^3/uL (130-400); RBC 4.32 10^6/uL (3.93-5.22); RDW 14.3 % (11.7-14.6); RDW-SD 48.8 fL; WBC 7.05 10^3/uL (4.4-10.8)
[2023-03-31 19:16] LABS: Bilirubin Negative (Negative); Blood Moderate (Negative); Clarity Turbid (Clear); Glucose 100 mg/dL (Negative); Ketones Negative (Negative); Leukocyte Esterase Trace (Negative); Nitrite Negative (Negative); Specific Gravity >= 1.030 (1.005-1.025); Urobilinogen 0.2 mg/dL (Up to 0.2); pH 5.5 (5-8)
[2023-03-31 19:19] LABS: Hemoglobin A1C 10.2 % (<5.7)
[2023-03-31 19:27] LABS: Epithelial Cells Moderate HPF (Negative); WBC >50 HPF (0-5)
[2023-03-31 19:28] LABS: Bacteria Many HPF (Negative); C & S Indicated? No/Sq. Contamination; Casts Negative LPF (Negative); Crystals Negative HPF (Negative); Mucus Negative (Negative); Other Cells Few Yeast (Negative)
[2023-03-31 19:56] LABS: COMMENT (LAB VIEW ONLY) 225.14 mg/dL
[2023-03-31 19:57] LABS: Microalb ug/mg Crea 73.4 ug/mg Cr
== END 2023-03-31 18:52 | disposition home or self-care (01) ==
LOC: NCHCN 18:51
PROVIDERS: PCP Family Medicine; Visit Provider Family Medicine
DX: D64.9 Anemia, unspecified (principal); E11.9 Type 2 diabetes mellitus without complications; N39.0 Urinary tract infection, site not specified
CPT/HCPCS: 85027; 81003; 81015; 82043; 82570; 83036

== ENCOUNTER 2023-05-18 07:39 | Inpatient (IN) | payer MEDICARE, MEDICAID, SELFPAY ==
[2023-05-18] VITALS (68 sets, daily range): BP systolic 100–163; BP diastolic 59–141; PULSE 52–155; RESP 17–33; TEMP 36.1–37.2; O2SAT 88–99
--- NOTE | 2023-05-18 07:30 | RT.EKG_ITS ---
APPROVED REPORT Exam: Resting ECG Reason for Exam: chest pain Patient Location: E HR:153 bpm ECG Measurements Heart Rate 153 AXIS OH [id number] P [id number] QRSd 97 QRS 45 QT [id number] T [id number] QTc 0 Conclusion Atrial fibrillation with rapid V-rate...A-rate 388 Ventricular premature complex...V complex w/ short R-R interval Repolarization abnormality, prob rate related...ST dep, T neg, tachycardia
[2023-05-18] MEDS: dilTIAZem 25 MG/5 ML VIAL 15 MG IVP (08:02)
[2023-05-18 08:13] LABS: Abs Immature Grans 0.03 10^3/uL (0.0-0.06); Absolute Basophil Count 0.03 10^3/uL (0.0-0.2); Absolute Eosinophil Count 0.03 10^3/uL (0.0-0.7); Absolute Lymphocyte Count 1.19 10^3/uL (1.2-3.4); Absolute Monocyte Count 0.85 10^3/uL (0.1-0.8); Basophils % 0.3; Eosinophils % 0.3; HCT 37.3 % (36.0-46.0); Immature Grans % 0.3; Lymphocytes % 12.2; MCH 28.4 pg (27.0-33.0); MCHC 32.2 % (32.0-36.0); MCV 88 fL (80-95); MPV 10.5 fL (8.0-11.0); Monocytes % 8.7; Neutrophils % 78.2; Platelet Count 477 10^3/uL (130-400); RBC 4.22 10^6/uL (3.93-5.22); RDW 13.3 % (11.7-14.6); RDW-SD 42.9 fL; WBC 9.73 10^3/uL (4.4-10.8)
[2023-05-18] MEDS: dilTIAZem 125 MG in Normal Saline 100 ML IV (08:19)
--- NOTE | 2023-05-18 08:30 | ED.GENADUL_ITS ---
HPI General Mode of arrival: EMS . Date/Time Provider Initiated Documentation: 05/18/23 07:53 . Limitations to Documentation: no limitations . Information obtained by: patient and EMS . HPI Narrative: 78yo female with with multiple medical problems including atrial fibrillation with RVR, diabetes, coronary artery disease, presents with chief complaint of shortness of breath. Patient notes shortness of breath developed last night and has persisted. Patient states she was gasping for air last night. Symptoms were severe. No modifiers. She does not typically use oxygen. This morning she notes chest discomfort described as a pressure that lasted few hours and has since resolved. No associated nausea vomiting. No leg swelling or calf pain. Patient has chronic difficulty ambulating and uses a wheelchair. Patient has not been taking medications as prescribed for unknown period of time and at least a few days. This includes Lasix, Xarelto, metoprolol and diltiazem. Related Data Home Medications Medication Instructions Recorded Confirmed prednisone 5 mg tablet 5 mg PO DAILY 07/21/13 05/18/23 melatonin 10 mg capsule 10 mg PO HS 12/23/16 05/18/23 calcium carbonate 600 mg-vitamin 1 cap PO DAILY 11/09/19 05/18/23 D3 5 mcg (200 unit) capsule (Calcium 600 + D(3)) vitamin B complex 1 tab PO DAILY 11/09/19 05/18/23 tamsulosin 0.4 mg capsule 0.4 mg PO DAILY #14 caps 03/18/20 05/18/23 Saccharomyces boulardii 250 mg 250 mg PO BID #14 caps 10/16/20 05/18/23 capsule (Florastor) furosemide 20 mg tablet (Lasix) 20 mg PO QPM 07/23/21 05/18/23 magnesium oxide 400 mg (241.3 mg 400 mg PO DAILY 07/23/21 05/18/23 magnesium) tablet metoprolol succinate 200 mg 200 mg PO DAILY 07/23/21 05/18/23 capsule sprinkle, ext. release 24 hr oxycodone 10 mg tablet 10 mg PO TID PRN PRN 07/23/21 05/18/23 trazodone 50 mg tablet 50 mg PO HS 07/23/21 05/18/23 diltiazem HCl 300 mg 300 mg PO DAILY 09/27/21 05/18/23 capsule,extended release 24 hr sulfamethoxazole 400 1 tab PO DAILY #90 tabs 02/12/23 05/18/23 mg-trimethoprim 80 mg tablet fluoxetine 20 mg capsule 20 mg PO DAILY 03/16/23 05/18/23 leflunomide 10 mg tablet 10 mg PO DAILY 03/16/23 05/18/23 nitroglycerin 0.4 mg sublingual 0.4 mg sublingual Q5M PRN 03/16/23 05/18/23 tablet rivaroxaban 15 mg tablet (Xarelto) 15 mg PO QPM 03/16/23 05/18/23 rosuvastatin 20 mg tablet 20 mg PO HS 03/16/23 05/18/23 cyanocobalamin (vitamin B-12) 1,000 mcg PO DAILY 03/17/23 05/18/23 1,000 mcg tablet metformin 500 mg tablet,extended 500 mg PO DAILY 03/17/23 05/18/23 release 24 hr kkltxumr-lst-apduf acid 0.4 1 tab PO DAILY 03/17/23 05/18/23 mg-lycopene 300 mcg-lutein 250 mcg tablet (Adults 50 Plus) pleomrkxaszw-nukdjwzc-xxkteg 1 tab PO DAILY 03/17/23 05/18/23 tablet (Multivitamin 50 Plus tablet) pantoprazole 40 mg tablet,delayed 40 mg PO DAILY 03/17/23 05/18/23 release vitamin B complex 1 cap PO DAILY 03/17/23 05/18/23 Previous Rx's Medication Instructions Recorded tamsulosin 0.4 mg capsule 0.4 mg PO DAILY #14 caps 03/18/20 Saccharomyces boulardii 250 mg 250 mg PO BID #14 caps 10/16/20 capsule (Florastor) sulfamethoxazole 400 1 tab PO DAILY #90 tabs 02/12/23 mg-trimethoprim 80 mg tablet Allergies Allergy/AdvReac Type Severity Reaction Status Date / Time atorvastatin AdvReac Intermediate leg cramps Unverified 05/18/23 07:54 lisinopril AdvReac Intermediate cough Unverified 05/18/23 07:54 General Stated Complaint: SOB REGAN: 3 Review of Systems All systems reviewed & are unremarkable except as noted in HPI and below Constitutional Constitutional: Denies fever(s) Cardiovascular Cardiovascular: Reports as per HPI Respiratory Respiratory: Reports as per HPI Exam Const General: cooperative HENMT Mouth: moist mucous membranes Eyes Conjunctivae: normal conjunctivae Sclera: normal sclerae Neck Neck: trachea midline and supple Resp Effort & Inspection: labored and tachypneic Auscultation: rales bilaterally and no rhonchi Cardio Rate: tachycardic Rhythm: abnormal rhythm irregularly irregular GI Palpation: soft, not firm, no guarding, no masses, not rigid and nontender Skin General skin exam: no rashes or lesions noted Neuro General: patient alert, patient awake, patient oriented x3 and tone normal Extrem General: no calf tenderness and no edema Psych Appearance: grossly normal Mental Status: mental status grossly normal Course Vital Signs Vital signs: Vital Signs Pulse 150 H 05/18/23 07:39 Respiratory Rate 20 05/18/23 07:39 Pulse Oximetry 94 05/18/23 07:39 Temperature 37.2 C 05/18/23 07:47 Pulse 140 H 05/18/23 08:02 Respiratory Rate 22 05/18/23 07:47 Respiratory Effort Normal, Short of Breath 05/18/23 07:47 Respiratory Depth Normal 05/18/23 07:47 Respiratory Pattern Normal 05/18/23 07:47 Blood Pressure 163/141 H 05/18/23 07:47 Blood Pressure Position Sitting 05/18/23 07:47 Pulse Oximetry 95 05/18/23 07:47 Oxygen Delivery Method Nasal Cannula 05/18/23 07:47 Oxygen Flow Rate 2 05/18/23 07:47 Lab/Test Results Lab/Test Results: Laboratory Tests Range/Units 05/18/23 07:40 WBC (4.4-10.8) 10^3/uL 9.73 RBC (3.93-5.22) 10^6/uL 4.22 Hgb (11.2-15.7) g/dL 12.0 Hct (36.0-46.0) % 37.3 MCV (80-95) fL 88 MCH (27.0-33.0) pg 28.4 MCHC (32.0-36.0) % 32.2 RDW (11.7-14.6) % 13.3 Plt Count (130-400) 10^3/uL 477 H MPV (8.0-11.0) fL 10.5 Immature Gran % 0.3 Neutrophils % 78.2 Lymphocytes % 12.2 Monocytes % 8.7 Eosinophils % 0.3 Basophils % 0.3 Nucleated RBC % (0.0-0.3) % 0.0 Absolute Neutrophils (1.2-6.7) 10^3/uL 7.60 H Absolute Lymphocytes (1.2-3.4) 10^3/uL 1.19 L Absolute Monocytes (0.1-0.8) 10^3/uL 0.85 H Absolute Eosinophils (0.0-0.7) 10^3/uL 0.03 Absolute Basophils (0.0-0.2) 10^3/uL 0.03 Medical Decision Making 834 --78-year-old female with multiple medical problems including history of atrial fibrillation, insulin-dependent diabetes, coronary artery disease, here with shortness of breath, medication noncompliance, not taking diltiazem, metoprolol, Lasix or Xarelto. Patient is hypoxic saturating 90% on room air. Nasal cannula oxygen applied and pulse ox improved to mid 90s with improvement in symptoms. Patient tachycardic and hypertensive. Patient in critical condition on arrival. Patient tachycardic in the 150s and irregular. 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 EKG was reviewed and interpreted by me: Please see report, A-fib, 153 bpm, rate related repolarization abnormality. Diltiazem 15 mg IV was administered and heart rate improved to 120s. Diltiazem infusion initiated. Concern for acute CHF. Plan for diuresis. Consider ACS and will check troponin. No active chest pain. Patient was given aspirin by EMS. Initial labs reviewed: Potassium 2.9. I will give potassium chloride IV. Given chronic immobility, noncompliance with anticoagulant, chest pain and shortness of breath with hypoxia, concern for acute life-threatening pulmonary embolism. Plan to obtain CT of the chest. 105 --patient reassessed multiple times. Heart rate still in the 120s. Diltiazem titrated up to 10mg/hr. CT of the chest was interpreted by radiology: No pulmonary embolism. Interstitial pulmonary edema, bilateral pleural effusions, cardiomegaly and reflux of contrast into dilated IVC and hepatic veins suggestive of congestive heart failure. BNP pending. Hypomagnesemia noted. I will give magnesium 1 g IV and then continue potassium replacement. Plan to hold Lasix until potassium replacement completed. Patient did not tolerate Connell catheter placement. Plan for hospitalization for continued treatment. 105 --I spoke with Dr. Bro, discussed ED presentation and course, she will admit the patient. She requested furosemide 20 mEq be administered at this time simultaneously with electrolyte replacement. Lab Data Lab results reviewed: Yes I reviewed the patient's lab results. Labs: Laboratory Tests Range/Units 05/18/23 05/18/23 07:40 08:48 WBC (4.4-10.8) 10^3/uL 9.73 RBC (3.93-5.22) 10^6/uL 4.22 Hgb (11.2-15.7) g/dL 12.0 Hct (36.0-46.0) % 37.3 MCV (80-95) fL 88 MCH (27.0-33.0) pg 28.4 MCHC (32.0-36.0) % 32.2 RDW (11.7-14.6) % 13.3 Plt Count (130-400) 10^3/uL 477 H MPV (8.0-11.0) fL 10.5 Immature Gran % 0.3 Neutrophils % 78.2 Lymphocytes % 12.2 Monocytes % 8.7 Eosinophils % 0.3 Basophils % 0.3 Nucleated RBC % (0.0-0.3) % 0.0 Absolute Neutrophils (1.2-6.7) 10^3/uL 7.60 H Absolute Lymphocytes (1.2-3.4) 10^3/uL 1.19 L Absolute Monocytes (0.1-0.8) 10^3/uL 0.85 H Absolute Eosinophils (0.0-0.7) 10^3/uL 0.03 Absolute Basophils (0.0-0.2) 10^3/uL 0.03 Sodium (136-145) mmol/L 133 L Potassium (3.5-5.1) mmol/L 2.9 L* Chloride (98-107) mmol/L 92 L Carbon Dioxide (21.0-32.0) mmol/L 31.6 Anion Gap (3-11) mmol/L 9.4 BUN (7-18) mg/dL 8 Creatinine (0.55-1.02) mg/dL 1.2 H Est GFR (CKD-EPI 2020) (mL/min/1.73m2) 46.33 Glucose (74-106) mg/dL 354 H Calcium (8.5-10.1) mg/dL 8.6 Magnesium (1.8-2.4) mg/dL 1.5 L Total Bilirubin (0.2-1.0) mg/dL 1.1 H AST (15-37) U/L 17 ALT (14-59) U/L 13 L Alkaline Phosphatase (46-116) U/L 113 Troponin I (< or =60) ng/L < 50 Total Protein (6.4-8.2) g/dL 7.9 Albumin (3.4-5.0) g/dL 2.5 L COVID-19 Source Nasal/Nares SARS-CoV-2 (PCR) (Negative) Negative Quality:SDOH Health Related Social Needs: No Data to Display Critical Care Time Critical Care Time Critical Care Time: Yes Total Critical Care Time: 50 Attestation: I spent greater than 50 minutes addressing this patient's immediate life threats. Please see MDM section of note. This time was spent engaged in work directly related to the patient's care, exclusive of separate procedures, and failure to initiate these interventions would have likely resulted in clinically significant or life threatening deterioration in the patient's condition. PFSH All Active Problems (Updated 05/18/23 @ 11:01 by Silvino Arzola MD) Hypomagnesemia (Acute) CHF (congestive heart failure) (Chronic) Hypokalemia (Acute) Atrial fibrillation with RVR (Acute) Grief reaction (Chronic) Counseling regarding advance care planning and goals of care (Acute) Palliative care encounter (Acute) Acute duodenitis (Acute) Heme + stool (Acute) Dizziness (Acute) Hyperglycemia (Acute) Mild cognitive impairment (Acute) Non-adherence to medical treatment (Acute) Advanced care planning/counseling discussion (Acute) Type 2 diabetes mellitus with hyperglycemia (Chronic) STEMI (ST elevation myocardial infarction) (Acute) Cardiac catheterization performed 11/02. There is single-vessel disease. Recannulization was not successful. Lifelong anticoagulation with dual antiplatelet therapy. COVID (Acute) Recurrent UTI (Acute) History of cervical cancer (Acute) Insomnia (Acute) Goals of care, counseling/discussion (Acute) Wheelchair dependent (Chronic) motorized Laceration of ankle, right (Acute) Fracture of toe of right foot (Acute) Cellulitis (Acute) Poorly controlled type 2 diabetes mellitus (Acute) UTI (urinary tract infection) (Acute) Hydronephrosis with renal calculous obstruction (Chronic) Calculus of proximal right ureter (Acute) Diabetes (Chronic) Atrial fibrillation (Chronic) Hypokalemia (Chronic) Psychogenic polydipsia (Chronic) UTI (urinary tract infection) (Acute) Weakness (Acute) Adjustment disorder (Acute) Advance directive on file (Acute) Atrial fibrillation with RVR (Acute) Acute diastolic CHF (congestive heart failure) (Acute) Bilateral nephrolithiasis (Chronic) Steroid dependent (Chronic) IDDM (insulin dependent diabetes mellitus) (Chronic) Diarrhea (Acute) UTI (urinary tract infection) (Acute) Dehydration (Acute) Ureterolithiasis (Acute) Hyperglycemia (Acute) Hyperglycemia due to type 1 diabetes mellitus (Acute) Gastrointestinal bleeding (Acute) C. difficile colitis (Acute) Duodenal ulcer (Acute) Medical History Palliative care patient Rheumatoid arteritis Hx of hyperlipidemia HTN (hypertension) Diabetes Atrial fibrillation Surgical History History of cystoscopy History of hysterectomy Hx of cholecystectomy Family History Mother , in her late 60s from endometrial cancer Endometrial cancer Obesity Father , in his early 70s from alcoholic cirrhosis Alcohol abuse Cirrhosis, alcoholic Sister , in her early 70s from cervical cancer Cervical cancer Brother , age 60 from lung cancer Lung cancer Smoker Brother , age 50 from AIDS, history of IVDU AIDS IVDU (intravenous drug user) Brother , age 22 from suicide Suicide Brother , in psychiatric hospital ? COD IVDU (intravenous drug user) Daughter No problems noted. 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, 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, 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 Pets and animals: Yes Pets and animals: cat(s) and dog(s) Do you think of yourself as: straight/heterosexual Current gender identity: female What is your relationship status?: How often do you talk on the phone with friends or family?: twice per week How often do you get together with friends or relatives?: twice per week Panel score (0-1 are the most socially isolated patients): 2 What type of physical activity do you participate in: assisted ambulation and sedentary lifestyle Frequency: does not exercise Special terra needs: No Seatbelt use: always Water heater temp set <120 deg: Yes Working smoke detector in home: Yes Fire extinguisher in home: Yes Firearms in home: Yes Do you feel safe at home: Yes Do you feel safe in your relationship?: Yes Discharge Plan Disposition Patient Disposition: Admit to [facility] Condition: Critical Discharge Details Chief Complaint: SOB Clinical Impression: Atrial fibrillation with RVR, Hypokalemia, CHF (congestive heart failure), Hypomagnesemia Primary Care Provider: Marleen Warren ED Provider: Silvino Arzola Home Meds and New Rx's Prescriptions: No Action oxycodone 10 mg tablet 10 mg PO TID PRN PRN sulfamethoxazole-trimethoprim 400-80 mg tablet 1 tab PO DAILY Qty: 90 3RF Rx Instructions: Prophylactic antibiotic for UTI prevention magnesium oxide 400 mg (241.3 mg magnesium) tablet 400 mg PO DAILY furosemide [Lasix] 20 mg tablet 20 mg PO QPM Rx Instructions: 1 tablet by mouth every evening metoprolol succinate 200 mg capsule,olga,ER 24hr 200 mg PO DAILY trazodone 50 mg tablet 50 mg PO HS melatonin 10 MG capsule 10 mg PO HS prednisone 5 MG tablet 5 mg PO DAILY Calcium 600 + D(3) 600 mg calcium- 200 unit Capsule 1 cap PO DAILY vitamin B complex Tablet 1 tab PO DAILY tamsulosin 0.4 mg Capsule 0.4 mg PO DAILY Qty: 14 0RF Saccharomyces boulardii [Florastor] 250 mg capsule 250 mg PO BID Qty: 14 0RF diltiazem HCl 300 mg capsule,extended release 24hr 300 mg PO DAILY fluoxetine 20 mg capsule 20 mg PO DAILY Patient Comments: TAKE ONE CAPSULE BY MOUTH EVERY DAY leflunomide 10 mg tablet 10 mg PO DAILY rosuvastatin 20 mg tablet 20 mg PO HS nitroglycerin 0.4 mg tablet, sublingual 0.4 mg sublingual Q5M PRN Xarelto 15 mg tablet 15 mg PO QPM Rx Instructions: daily with the evening meal pantoprazole 40 mg Tablet,Delayed Release (Dr/Ec) 40 mg PO DAILY metformin 500 mg tablet extended release 24 hr 500 mg PO DAILY Adults 50 Plus 0.4 mg-300 mcg- 250 mcg tablet 1 tab PO DAILY cyanocobalamin (vitamin B-12) 1,000 mcg tablet 1,000 mcg PO DAILY vitamin B complex Capsule 1 cap PO DAILY Multivitamin 50 Plus Tablet 1 tab PO DAILY Patient Comments: Take 1 tablet by mouth once a day
[2023-05-18 08:31] LABS: ALT 13 U/L (14-59); AST 17 U/L (15-37); Albumin 2.5 g/dL (3.4-5.0); Alkaline Phosphatase 113 U/L (46-116); Anion Gap 9.4 mmol/L (3-11); BUN 8 mg/dL (7-18); Bilirubin, Total 1.1 mg/dL (0.2-1.0); CO2 31.6 mmol/L (21.0-32.0); CREATININE 1.2 mg/dL (0.55-1.02); Calcium 8.6 mg/dL (8.5-10.1); Chloride 92 mmol/L (98-107); Estimated GFR 46.33 (mL/min/1.73m2); Glucose 354 mg/dL (74-106); Magnesium 1.5 mg/dL (1.8-2.4); Sodium 133 mmol/L (136-145); Total Protein 7.9 g/dL (6.4-8.2); Troponin I < 50 ng/L (< or =60)
[2023-05-18 08:35] LABS: Potassium 2.9 mmol/L (3.5-5.1)
[2023-05-18 08:52] LABS: Source Nasal/Nares
[2023-05-18] MEDS: Potassium Chloride 20 MEQ TABCR 40 MEQ PO ×2 (08:59→14:42)
[2023-05-18] MEDS: POTASSIUM CHLORIDE 20 MEQ/100 ML BAG 50 MEQ IVPB ×3 (09:02→16:37)
[2023-05-18 09:29] LABS: COVID-19 PCR Negative (Negative)
[2023-05-18] MEDS: Normal Saline - Diluent 50 ML VIAL IJ (09:36)
[2023-05-18] MEDS: Omnipaque 350 MG/ML 100 ML BTL IJ (09:37)
--- NOTE | 2023-05-18 09:53 | DI.CT_ITS ---
Exam(s) CT CHEST PE CTA EXAM: CT CHEST PE CTA CLINICAL HISTORY: chest pain, shortness of breath. TECHNIQUE: Imaging Protocol: CT angiography of the chest was performed using pulmonary embolus hayden col. Multi planar reconstructions were performed. CONTRAST MATERIAL: Intravenous: Omnipaque 350 Contrast volume: 100 cc COMPARISON: CT CT ABDOMEN PELVIS W from 03/16/2023 FINDINGS: CHEST: PULMONARY ARTERIES: There are no intraluminal filling defects to suggest acute pulmonary emboli. LUNGS: There are pleural effusions now evident, right larger than left. These were not evident on CT scan of 03/16/2023. The right pleural effusions moderate size. Left pleural effusion is small size . These pleural effusions are not loculated.. There is respiratory motion artifact. However, there appears to be a pulmonary edema pattern. No confluent infiltrates. No obvious ominous pulmonary no dules. No significant focal findings in the trachea and mainstem bronchi. MEDIASTINUM: There is no hilar nor mediastinal adenopathy. Thyroid gland contains a prominent nodule at the junction of the right lobe and isthmus, this measuring approximately 2 cm size. CARDIAC: Mild cardiomegaly. No pericardial effusion.Caliber of the thoracic aorta is within normal l imits. No obvious dissection. There is no significant shift of the interventricular septum. However , there is some reflux of injected IV contrast into the intrahepatic IVC and intrahepatic systemic ve ins, consistent with element of heart failure. PARTIALLY VISUALIZED UPPERMOST ABDOMEN: Gallbladder surgically absent. No adrenal masses. Liver hyp odense-steatosis. No ascites. OSSEOUS: Irregularity of the right 9th rib which has appearance of either artifact related to motion or healed fracture at this level. Also similar findings at the subjacent right 10th rib.. IMPRESSION: 1. Significant deterioration in the appearance of the lungs when compared to the uppermost images of a recent abdominal CT scan performed 03/16/2023. There are now new non loculated bilateral pleural e ffusions, right larger than left and what appears to be pulmonary edema pattern. 2. Cardiomegaly. No pericardial effusion. 3. Right 9th and 10th ribs findings as described above which may represent artifact due to motion. 2 centimeter right thyroid lobe nodule noted. Can be further studied with nonemergent ultrasound. RADIATION DOSE DELIVERED: 728.72mGy.cm Total DLP DATA REPOSITORY: All CT scans at this facility are submitted to the National Radiology Data Registry (NRDR) Dose Index Registry (DIR) with the [employer] (ACR). RADIATION OPTIMIZATION: All CT scans at this facility use at least one of these dose optimization te chniques: automated exposure control; mA and/or kV adjustment per patient size (includes targeted exa ms where dose is matched to clinical indication); or iterative reconstruction.
[2023-05-18] MEDS: Mylanta Suspension 30 ML CUP PO (10:19)
[2023-05-18] MEDS: Famotidine 20 MG/2 ML VIAL IVP (10:19)
--- NOTE | 2023-05-18 10:42 | DI.VRAD_ITS ---
PROCEDURE INFORMATION: Exam: CTA Chest With Contrast Exam date and time: 05/18/2023 9:35 AM Age: 78 years old Clinical indication: Shortness of breath and other: Chest pain; Patient HX: Chest pain, shortness of breath TECHNIQUE: Imaging protocol: Computed tomographic angiography of the chest with contrast. Exam focused on the arteries. 3D rendering (Not supervised by radiologist): MIP and/or 3D reconstructed images were created by the technologist. Contrast material: OMNI 350; Contrast volume: 100 ml; Contrast route: INTRAVENOUS (IV); COMPARISON: CT CHEST/ABD/PEL WO 02/04/2022 9:12 AM FINDINGS: Pulmonary arteries: Normal. No pulmonary emboli. Aorta: Unremarkable. No aortic aneurysm. No aortic dissection. Veins: There is reflux of the contrast into the IVC and dilated hepatic veins, suggestive of congestive heart failure. Thyroid: Enlarged thyroid with multiple nodules measuring up to 1.7 cm in the right para isthmic area. Lungs: There is bilateral lower lobe atelectasis. There is mild interstitial pulmonary edema. No focal consolidation. Pleural spaces: There are bilateral pleural effusions, larger on the right side with bilateral lower lobe atelectasis. Heart: Unremarkable. No cardiomegaly. No pericardial effusion. Mediastinal space: Contrast in the esophagus. Lymph nodes: There is a 1.1 cm pre-vascular lymph node. Bones/joints: There is moderate degenerative of the spine with bridging anterior osteophytes with DISH. Soft tissues: Unremarkable. IMPRESSION: 1. No pulmonary embolism. 2. Interstitial pulmonary edema, bilateral pleural effusions, cardiomegaly and reflux of contrast into dilated IVC and hepatic veins suggestive of congestive heart failure. Dictated and Authenticated by: Hari Del Rio MD. Ordering:KEARA Dubois MD
[2023-05-18] MEDS: MAGNESIUM SULFATE 1 GM/100 ML BAG IVPB (10:55)
[2023-05-18] MEDS: Furosemide 20 MG/2 ML VIAL IVP (11:06)
[2023-05-18 11:18] LABS: NT-proBNP 4589 pg/mL (<300)
--- NOTE | 2023-05-18 12:23 | W.PC.ACHO ---
Registration Status: REG ER Primary Language: Preferred Language: Slovak ED Information & Data Chief Complaint SOB 05/18/23 08:37 Triage Note Woke this morning with 05/18/23 07:39 shortness of breath and substernal chest pain. 324mg ASA given by EMS. Pt has been non-compliant with medications for last week. Medical / Surgical History (Last Reviewed 05/18/23 @ 08:33 by Silvino Arzola MD) Palliative care patient Rheumatoid arteritis Hx of hyperlipidemia HTN (hypertension) Diabetes Atrial fibrillation (Last Reviewed 05/18/23 @ 08:33 by Silvino Arzola MD) History of cystoscopy History of hysterectomy Hx of cholecystectomy Most Recent Vital Signs Temperature 37.2 C 05/18/23 07:47 Pulse 107 H 05/18/23 12:13 Pulse 119 H 05/18/23 12:13 Respiratory Rate 17 05/18/23 12:13 Respiratory Effort Normal, Short of Breath 05/18/23 07:47 Respiratory Depth Normal 05/18/23 07:47 Respiratory Pattern Normal 05/18/23 07:47 Blood Pressure 123/69 05/18/23 12:13 Blood Pressure Mean 88 05/18/23 12:13 Blood Pressure Position Sitting 05/18/23 07:47 Pulse Oximetry 95 05/18/23 07:47 Oxygen Delivery Method Nasal Cannula 05/18/23 07:47 Oxygen Flow Rate 2 05/18/23 07:47 Allergies atorvastatin Adverse Reaction (Intermediate, Unverified 05/18/23 12:20) leg cramps lisinopril Adverse Reaction (Intermediate, Unverified 05/18/23 12:20) cough Precautions Isolation Standard precaution 05/18/23 07:47 Active Medications Generic Name Dose Route Start Last Admin Trade Name Freq PRN Reason Stop Dose Admin Diltiazem HCl 125 mg/ Sodium 125 mls @ 5 mls/hr 05/18/23 08:00 05/18/23 10:50 Chloride IV 15 mg/hr INFUSION ZORAIDA 15 mls/hr Titration Protocol 5 MG/HR Iohexol 100 ml 05/18/23 09:45 05/18/23 09:37 Omnipaque 350 Mg/Ml 100 Ml Btl IJ 06/17/23 23:59 100 ml DIRECTED ZORAIDA Administration Sodium Chloride 50 ml 05/18/23 09:45 05/18/23 09:36 Normal Saline - Diluent 50 Ml Vial IJ 50 ml .FOR DI USE ZORAIDA Administration IV IV Catheter Type [Left Forearm Saline Lock ] IV Catheter Type [Right Saline Lock Antecubital] IV Catheter Gauge [Left 20 Forearm] IV Catheter Gauge [Right 20 Antecubital] Diagnostics 05/18/23 05/18/23 05/18/23 Range/Units 12:00 08:48 07:40 WBC 9.73 (4.4-10.8) 10^3/uL RBC 4.22 (3.93-5.22) 10^6/uL Hgb 12.0 (11.2-15.7) g/dL Hct 37.3 (36.0-46.0) % MCV 88 (80-95) fL MCH 28.4 (27.0-33.0) pg MCHC 32.2 (32.0-36.0) % RDW 13.3 (11.7-14.6) % Plt Count 477 H (130-400) 10^3/uL MPV 10.5 (8.0-11.0) fL Immature Gran % 0.3 Neutrophils % 78.2 Lymphocytes % 12.2 Monocytes % 8.7 Eosinophils % 0.3 Basophils % 0.3 Nucleated RBC % 0.0 (0.0-0.3) % Absolute Neutrophils 7.60 H (1.2-6.7) 10^3/uL Absolute Lymphocytes 1.19 L (1.2-3.4) 10^3/uL Absolute Monocytes 0.85 H (0.1-0.8) 10^3/uL Absolute Eosinophils 0.03 (0.0-0.7) 10^3/uL Absolute Basophils 0.03 (0.0-0.2) 10^3/uL Sodium 133 L (136-145) mmol/L Potassium 2.9 L* (3.5-5.1) mmol/L Chloride 92 L (98-107) mmol/L Carbon Dioxide 31.6 (21.0-32.0) mmol/L Anion Gap 9.4 (3-11) mmol/L BUN 8 (7-18) mg/dL Creatinine 1.2 H (0.55-1.02) mg/dL Est GFR (CKD-EPI 2020) 46.33 (mL/min/1.73m2) Glucose 354 H (74-106) mg/dL Calcium 8.6 (8.5-10.1) mg/dL Magnesium 1.5 L (1.8-2.4) mg/dL Total Bilirubin 1.1 H (0.2-1.0) mg/dL AST 17 (15-37) U/L ALT 13 L (14-59) U/L Alkaline Phosphatase 113 (46-116) U/L Troponin I Pending < 50 (< or =60) ng/L NT-Pro-B Natriuret Pep 4589 H (<300) pg/mL Total Protein 7.9 (6.4-8.2) g/dL Albumin 2.5 L (3.4-5.0) g/dL COVID-19 Source Nasal/Nares SARS-CoV-2 (PCR) Negative (Negative) Intake and Output - 24 Hour Total 05/18/23 07:37 thru 05/18/23 11:59 Intake Total 114.667 Balance 114.667 Weight 112 kg Intake: IV 114.667 Falls Risk Assessment History of Falls Previous History 05/18/23 07:47 Contributing Factors Incontinence 05/18/23 07:47 Ambulatory Aids Uses ambulatory device 05/18/23 07:47 Tubes/Lines None 05/18/23 07:47 Gait Evaluation No gait disturbance 05/18/23 07:47 Fall Total Score 33 05/18/23 07:47 Level of Risk Moderate Risk 05/18/23 07:47 Problems (Last Reviewed 05/18/23 @ 08:33 by Silvino Arzola MD) Hypomagnesemia (Acute) CHF (congestive heart failure) (Chronic) Hypokalemia (Acute) Atrial fibrillation with RVR (Acute) v v v v v v v v v Sending and/or Receiving Nurses: Please use comment section below to note any information pertinent to the patient hand-off not included above. Information / Comments: Diltiazem IVPB 15ml/hr current heart rate 123 Report received from: Valeria Orozco
[2023-05-18 12:26] LABS: Troponin I < 50 ng/L (< or =60)
[2023-05-18] MEDS: MAGNESIUM SULFATE 2 GM/50 ML BAG IVPB (13:42)
--- NOTE | 2023-05-18 14:03 | HPE_ITS ---
Date of service: 05/18/23 Time of Service: 14:08 Assessment and Plan Assessment and plan (1) Atrial fibrillation with RVR: Status: Acute Assessment and plan: Resume home metoprolol. Continue IV cardizem until HR is better to the point of being able to wean off of the drip. Continue home xarelto. (2) Acute on chronic diastolic CHF (congestive heart failure), NYHA class 1: Status: Acute Assessment and plan: Continue diuresis initiated in the ED> (3) Hypokalemia: Status: Acute Assessment and plan: Replete (4) Hypomagnesemia: Status: Acute Assessment and plan: Replete (5) Type 2 diabetes mellitus with hyperglycemia: Status: Chronic Assessment and plan: Cover with SSI. BG on today's presentation was 354 without evidence of DKA. (6) DVT prophylaxis: Status: Acute Assessment and plan: On xarelto (7) Discharge planning issues: Status: Acute Assessment and plan: The patient is not sure about her code status and would like to not make this decision at this time. Due to this, I did change the code status in the computer to full code. C/s PT and palliative care. Total Critical Care Time 45 minutes. History of Present Illness History of Present Illness Chief Complaint: Shortness of breath Narrative: Ms Chester is a 78 year old female with PMHx of medical noncompliance, Afib on xarelto, CHFpEF (last LVEF 50-55% per echo in 04/05), DM2, previously but no longer on insulin, who is wheelchair-bound, whose , who used to remind her to take her medications, about a month ago, who was brought to [facility] ED by ambulance for shortness of breath starting (gasping for air) independent of her position in bed last night accompanied by left-sided chest pressure which had resolved by the time the patient presented to the ED. The patient endorsed a productive cough but did not know the color of her sputum. She is not sure the last time she took her medications. She was found to be in rapid Afib with HR in 150s. Troponins are negative x 2. EKG showed HR of 155, AFib, nonspecific ST-T changes, but no acute ischemia. She was given 15 mg of IV diltiazem which slowed the HR down to 120s. She required 2L of O2 to saturate 94%. CTA of the chest ruled out a PE, but showed interstitial pulmonary edema, bilateral pleural effusions, cardiomegaly, IVC reflux and hepatic veins. The patient was given furosemide. In addition, her magnesium and potassium were repleted. Hospitalist admission to the ICU was requested for ongoing treatment of the rapid atrial fibrillation with cardizem drip. Of note, the patient lives alone currently. She states she would not consider going to a different place to live. She states her daughter, who is in the area, would not be available to help take care of her. Review of Systems All systems reviewed & are unremarkable except as noted in HPI and below PFSH All Active Problems (Updated 05/18/23 @ 14:57 by Sapna Bro MD) Discharge planning issues (Acute) DVT prophylaxis (Acute) Acute on chronic diastolic CHF (congestive heart failure), NYHA class 1 (Acute) Hypomagnesemia (Acute) CHF (congestive heart failure) (Chronic) Hypokalemia (Acute) Atrial fibrillation with RVR (Acute) Grief reaction (Chronic) Counseling regarding advance care planning and goals of care (Acute) Palliative care encounter (Acute) Acute duodenitis (Acute) Heme + stool (Acute) Dizziness (Acute) Hyperglycemia (Acute) Mild cognitive impairment (Acute) Non-adherence to medical treatment (Acute) Advanced care planning/counseling discussion (Acute) Type 2 diabetes mellitus with hyperglycemia (Chronic) STEMI (ST elevation myocardial infarction) (Acute) Cardiac catheterization performed 11/02. There is single-vessel disease. Recannulization was not successful. Lifelong anticoagulation with dual antiplatelet therapy. COVID (Acute) Recurrent UTI (Acute) History of cervical cancer (Acute) Insomnia (Acute) Goals of care, counseling/discussion (Acute) Wheelchair dependent (Chronic) motorized Laceration of ankle, right (Acute) Fracture of toe of right foot (Acute) Cellulitis (Acute) Poorly controlled type 2 diabetes mellitus (Acute) UTI (urinary tract infection) (Acute) Hydronephrosis with renal calculous obstruction (Chronic) Calculus of proximal right ureter (Acute) Diabetes (Chronic) Atrial fibrillation (Chronic) Hypokalemia (Chronic) Psychogenic polydipsia (Chronic) UTI (urinary tract infection) (Acute) Weakness (Acute) Adjustment disorder (Acute) Advance directive on file (Acute) Atrial fibrillation with RVR (Acute) Acute diastolic CHF (congestive heart failure) (Acute) Bilateral nephrolithiasis (Chronic) Steroid dependent (Chronic) IDDM (insulin dependent diabetes mellitus) (Chronic) Diarrhea (Acute) UTI (urinary tract infection) (Acute) Dehydration (Acute) Ureterolithiasis (Acute) Hyperglycemia (Acute) Hyperglycemia due to type 1 diabetes mellitus (Acute) Gastrointestinal bleeding (Acute) C. difficile colitis (Acute) Duodenal ulcer (Acute) Medical History Palliative care patient Rheumatoid arteritis Hx of hyperlipidemia HTN (hypertension) Diabetes Atrial fibrillation Surgical History History of cystoscopy History of hysterectomy Hx of cholecystectomy Family History Mother , in her late 60s from endometrial cancer Endometrial cancer Obesity Father , in his early 70s from alcoholic cirrhosis Alcohol abuse Cirrhosis, alcoholic Sister , in her early 70s from cervical cancer Cervical cancer Brother , age 60 from lung cancer Lung cancer Smoker Brother , age 50 from AIDS, history of IVDU AIDS IVDU (intravenous drug user) Brother , age 22 from suicide Suicide Brother , in psychiatric hospital ? COD IVDU (intravenous drug user) Daughter No problems noted. 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, 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, 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, 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 Pets and animals: Yes Pets and animals: cat(s) and dog(s) Do you think of yourself as: straight/heterosexual Current gender identity: female What is your relationship status?: How often do you talk on the phone with friends or family?: twice per week How often do you get together with friends or relatives?: twice per week Panel score (0-1 are the most socially isolated patients): 2 What type of physical activity do you participate in: assisted ambulation and sedentary lifestyle Frequency: does not exercise Special terra needs: No Seatbelt use: always Water heater temp set <120 deg: Yes Working smoke detector in home: Yes Fire extinguisher in home: Yes Firearms in home: Yes Do you feel safe at home: Yes Do you feel safe in your relationship?: Yes Meds Allergies and Home Medications Allergies Allergy/AdvReac Type Severity Reaction Status Date / Time atorvastatin AdvReac Intermediate leg cramps Unverified 05/18/23 12:20 lisinopril AdvReac Intermediate cough Unverified 05/18/23 12:20 Home Medications Medication Instructions Recorded Confirmed Type prednisone 5 mg tablet 5 mg PO DAILY 07/21/13 05/18/23 History melatonin 10 mg capsule 10 mg PO HS 12/23/16 05/18/23 History calcium carbonate 600 mg-vitamin 1 cap PO DAILY 11/09/19 05/18/23 History D3 5 mcg (200 unit) capsule (Calcium 600 + D(3)) vitamin B complex 1 tab PO DAILY 11/09/19 05/18/23 History tamsulosin 0.4 mg capsule 0.4 mg PO DAILY #14 caps 03/18/20 05/18/23 Rx Saccharomyces boulardii 250 mg 250 mg PO BID #14 caps 10/16/20 05/18/23 Rx capsule (Florastor) furosemide 20 mg tablet (Lasix) 20 mg PO QPM 07/23/21 05/18/23 History magnesium oxide 400 mg (241.3 mg 400 mg PO DAILY 07/23/21 05/18/23 History magnesium) tablet metoprolol succinate 200 mg 200 mg PO DAILY 07/23/21 05/18/23 History capsule sprinkle, ext. release 24 hr oxycodone 10 mg tablet 10 mg PO TID PRN PRN 07/23/21 05/18/23 History trazodone 50 mg tablet 50 mg PO HS 07/23/21 05/18/23 History diltiazem HCl 300 mg 300 mg PO DAILY 09/27/21 05/18/23 History capsule,extended release 24 hr sulfamethoxazole 400 1 tab PO DAILY #90 tabs 02/12/23 05/18/23 Rx mg-trimethoprim 80 mg tablet fluoxetine 20 mg capsule 20 mg PO DAILY 03/16/23 05/18/23 History leflunomide 10 mg tablet 10 mg PO DAILY 03/16/23 05/18/23 History nitroglycerin 0.4 mg sublingual 0.4 mg sublingual Q5M PRN 03/16/23 05/18/23 History tablet rivaroxaban 15 mg tablet (Xarelto) 15 mg PO QPM 03/16/23 05/18/23 History rosuvastatin 20 mg tablet 20 mg PO HS 03/16/23 05/18/23 History cyanocobalamin (vitamin B-12) 1,000 mcg PO DAILY 03/17/23 05/18/23 History 1,000 mcg tablet metformin 500 mg tablet,extended 500 mg PO DAILY 03/17/23 05/18/23 History release 24 hr hnglisrm-yub-updns acid 0.4 1 tab PO DAILY 03/17/23 05/18/23 History mg-lycopene 300 mcg-lutein 250 mcg tablet (Adults 50 Plus) kkuygwvmyhfw-jzkfhrss-lltjuq 1 tab PO DAILY 03/17/23 05/18/23 History tablet (Multivitamin 50 Plus tablet) pantoprazole 40 mg tablet,delayed 40 mg PO DAILY 03/17/23 05/18/23 History release vitamin B complex 1 cap PO DAILY 03/17/23 05/18/23 History Exam Narrative Exam Narrative: General: Pleasant visibly anxious moderately tachypneic female who is A&Ox3, but forgetful (thinks that she is 88) Neurological: A&Ox3, forgetful, no focal deficits Psychiatric: Anxious Skin: Visible skin intact HEENT: Atraumatic, normocephalic, EOMI, dry MM, clear oropharynx, large neck diameter, no submandibular or cervical lymphadenopathy, no goiter or JVD Cardiovascular: irregularly irregular rhythm, no m/r/g Lungs: diminished breath sounds, tachypneic Gastrointestinal: soft, nontender, nondistended Genitourinary: deferred Extremities: +1 BLE edema, no c/c, trace pedal pulses B Results Imaging Imaging Studies: CTA chest: 1. No pulmonary embolism. 2. Interstitial pulmonary edema, bilateral pleural effusions, cardiomegaly and reflux of contrast into dilated IVC and hepatic veins suggestive of congestive heart failure. Labs 05/18/23 07:40 05/18/23 07:40 Labs: Laboratory Results - last 24 hr 05/18/23 05/18/23 05/18/23 07:40 08:48 12:00 WBC 9.73 RBC 4.22 Hgb 12.0 Hct 37.3 MCV 88 MCH 28.4 MCHC 32.2 RDW 13.3 Plt Count 477 H MPV 10.5 Immature Gran % 0.3 Neutrophils % 78.2 Lymphocytes % 12.2 Monocytes % 8.7 Eosinophils % 0.3 Basophils % 0.3 Nucleated RBC % 0.0 Absolute Neutrophils 7.60 H Absolute Lymphocytes 1.19 L Absolute Monocytes 0.85 H Absolute Eosinophils 0.03 Absolute Basophils 0.03 Sodium 133 L Potassium 2.9 L* Chloride 92 L Carbon Dioxide 31.6 Anion Gap 9.4 BUN 8 Creatinine 1.2 H Est GFR (CKD-EPI 2020) 46.33 Glucose 354 H Calcium 8.6 Magnesium 1.5 L Total Bilirubin 1.1 H AST 17 ALT 13 L Alkaline Phosphatase 113 Troponin I < 50 < 50 NT-Pro-B Natriuret Pep 4589 H Total Protein 7.9 Albumin 2.5 L COVID-19 Source Nasal/Nares SARS-CoV-2 (PCR) Negative Last Vital Signs Temp 36.1 C L 05/18/23 13:12 Pulse 131 H 05/18/23 13:12 Resp 23 05/18/23 13:12 BP 120/62 05/18/23 12:45 Pulse Ox 92 05/18/23 13:12 Time Spent Time spent with Patient: 40-54 minutes Time was spent: preparing to see the patient(eg.review tests), obtaining and/or reviewing separately otained hiistory, ordering medications,tests, procedures, referring, communicating with other health director of healthcare systems, indepentently interpreting results, counseling the patient and care coordination
[2023-05-18 14:22] LABS: Troponin I < 50 ng/L (< or =60)
[2023-05-18] MEDS: LORazepam 0.5 MG TAB PO ×2 (14:42→22:17)
[2023-05-18] MEDS: Metoprolol 50 MG TAB PO ×2 (15:00→21:11)
[2023-05-18] MEDS: Normal Saline Flush 10 ML SYR IVP ×2 (16:26→21:12)
[2023-05-18] MEDS: Furosemide 40 MG/4 ML VIAL IVP (16:26)
[2023-05-18] MEDS: Rivaroxaban 15 MG TABLET PO (16:26)
[2023-05-18] MEDS: Insulin Aspart 300 UNITS/3 ML PEN SC ×2 (17:22→21:21)
[2023-05-18] MEDS: dilTIAZem 125 MG in Normal Saline 100 ML 10 MG IV (18:26)
[2023-05-18] MEDS: traZODone 50 MG TAB PO (21:10)
[2023-05-18] MEDS: Melatonin 3 MG TAB 9 MG PO (21:10)
[2023-05-18] MEDS: Rosuvastatin 20 MG TAB PO (21:10)
[2023-05-19] VITALS (16 sets, daily range): BP systolic 88–139; BP diastolic 67–100; PULSE 76–106; RESP 14–27; TEMP 36.1–36.6; O2SAT 90–97
[2023-05-19] MEDS: Metoprolol 50 MG TAB PO (03:08)
[2023-05-19 07:16] LABS: Abs Immature Grans 0.03 10^3/uL (0.0-0.06); Absolute Basophil Count 0.04 10^3/uL (0.0-0.2); Absolute Lymphocyte Count 1.45 10^3/uL (1.2-3.4); Absolute Monocyte Count 0.79 10^3/uL (0.1-0.8); Absolute Neutrophil Count 7.23 10^3/uL (1.2-6.7); Basophils % 0.4; Eosinophils % 2.1; HCT 36.4 % (36.0-46.0); HGB 11.8 g/dL (11.2-15.7); Immature Grans % 0.3; Lymphocytes % 14.9; MCH 29.1 pg (27.0-33.0); MCHC 32.4 % (32.0-36.0); MCV 90 fL (80-95); MPV 10.7 fL (8.0-11.0); Monocytes % 8.1; Neutrophils % 74.2; Platelet Count 480 10^3/uL (130-400); RBC 4.05 10^6/uL (3.93-5.22); RDW 13.5 % (11.7-14.6); RDW-SD 44.7 fL; WBC 9.74 10^3/uL (4.4-10.8)
[2023-05-19 07:30] LABS: Anion Gap 10.8 mmol/L (3-11); BUN 11 mg/dL (7-18); CO2 31.2 mmol/L (21.0-32.0); CREATININE 1.3 mg/dL (0.55-1.02); Calcium 8.4 mg/dL (8.5-10.1); Chloride 93 mmol/L (98-107); Estimated GFR 42.09 (mL/min/1.73m2); Glucose 262 mg/dL (74-106); Magnesium 1.9 mg/dL (1.8-2.4); Potassium 3.8 mmol/L (3.5-5.1); Sodium 135 mmol/L (136-145)
[2023-05-19] MEDS: Metoprolol CR 100 MG TABCR 200 MG PO (07:50)
[2023-05-19] MEDS: predniSONE 5 MG TAB PO (07:50)
[2023-05-19] MEDS: Calcium 600mg/Vit D 200U TAB 1 TAB PO (07:50)
[2023-05-19] MEDS: Insulin Aspart 300 UNITS/3 ML PEN SC ×3 (07:53→17:25)
[2023-05-19] MEDS: Multivitamin w/Minerals TAB 1 TAB PO (07:57)
[2023-05-19] MEDS: Tamsulosin 0.4 MG CAPCR PO (07:57)
[2023-05-19] MEDS: Vitamins B Comp w/C TAB 1 TAB PO (07:57)
[2023-05-19] MEDS: dilTIAZem CD 180 MG CAPCR 360 MG PO (07:57)
[2023-05-19] MEDS: Pantoprazole 40 MG TABCR PO (07:58)
[2023-05-19] MEDS: FLUoxetine 20 MG CAP PO (07:58)
[2023-05-19] MEDS: Magnesium Oxide 400 MG TAB PO (07:58)
[2023-05-19] MEDS: Furosemide 40 MG/4 ML VIAL IVP ×2 (07:59→16:36)
[2023-05-19] MEDS: Cyanocobalamin 500 MCG TAB 1000 MCG PO (08:14)
--- NOTE | 2023-05-19 08:30 | INITIAL_ITS ---
Date of service: 05/19/23 Care Management Initial Assmt Initial Assessment REASON FOR HOSPITALIZATION:: Atrial fibrillation with RVR PREVIOUS FUNCTIONAL STATUS/SOCIAL/FAMILY SUPPORTS:: Elizabeth lives in [facility] with one dog and one cat . of 49 years, Valeriy in March 2023. Daughter Zahida lives in [facility] as well; only child. Valeriy has five children, one remains in contact with Elizabeth and does not live local. It was described from patient that daughter does not come to visit, just comes to take care of the dog. CURRENT FUNCTIONAL STATUS:: In the AM RN consulted CM w/ concerns abt pt leaving AMA. Elizabeth was sitting in the chair when meeting with CM. Described feeling better and wanting to go home. Per MD, the reason for the stay was due to not taking needed medications regularly creating conditions to worsen. Elizabeth confirmed she had lost her and lost her cat of 20 years so was feeling not mentally well, so chose to not take her medications. Patient confirmed still has HH RN services. CM discussed COLST form and changing the HCA, it was stated there is not anyone she trusts and its her that is her own agent. Per MD request, CM called daughter regarding medication compliance. Daughter shared concerns that Elizabeth is not taking medications because she would like to . After reporting this to MD, a mental health evaluation was ordered. CM coordinated MH consult. In the afternoon RN updated that MH cleared Elizabeth, and at this time she is agreeable to remaining at [facility] for care. CM will continue to follow. ADVANCE DIRECTIVES:: None on file. COLST update Has patient been provided with info about the portal/API?: Yes Did the patient sign up for the portal?: Yes CODE STATUS:: Full Code INSURANCE COVERAGE / FINANCIAL ISSUES:: Medicaid of [place] Medicare Part A & B CURRENT HOME/COMMUNITY SERVICES/EQUIPMENT:: Wheelchair, HH RN services PRIMARY CARE PHYSICIAN:: Marleen Warren POTENTIAL DISCHARGE NEEDS:: Follow up appointments TRANSPORTATION:: Via private vehicle with family PLAN:: Elizabeth will return home once medically cleared. Her daughter will transport via private vehicle. She will follow up with her PCP and discharge plan of care. She will resume HH RN services, Palliative Care services, and recently ordered HH PT services. CM will continue to follow. PFSH All Active Problems (Updated 05/19/23 @ 09:16 by Sapna Bro MD) Discharge planning issues (Acute) DVT prophylaxis (Acute) Acute on chronic diastolic CHF (congestive heart failure), NYHA class 1 (Acute) CHF (congestive heart failure) (Chronic) Atrial fibrillation with RVR (Acute) Grief reaction (Chronic) Counseling regarding advance care planning and goals of care (Acute) Palliative care encounter (Acute) Acute duodenitis (Acute) Heme + stool (Acute) Dizziness (Acute) Hyperglycemia (Acute) Mild cognitive impairment (Acute) Non-adherence to medical treatment (Acute) Advanced care planning/counseling discussion (Acute) Type 2 diabetes mellitus with hyperglycemia (Chronic) STEMI (ST elevation myocardial infarction) (Acute) Cardiac catheterization performed 11/02. There is single-vessel disease. Recannulization was not successful. Lifelong anticoagulation with dual antiplatelet therapy. COVID (Acute) Recurrent UTI (Acute) History of cervical cancer (Acute) Insomnia (Acute) Goals of care, counseling/discussion (Acute) Wheelchair dependent (Chronic) motorized Laceration of ankle, right (Acute) Fracture of toe of right foot (Acute) Cellulitis (Acute) Poorly controlled type 2 diabetes mellitus (Acute) UTI (urinary tract infection) (Acute) Hydronephrosis with renal calculous obstruction (Chronic) Calculus of proximal right ureter (Acute) Diabetes (Chronic) Atrial fibrillation (Chronic) Hypokalemia (Chronic) Psychogenic polydipsia (Chronic) UTI (urinary tract infection) (Acute) Weakness (Acute) Adjustment disorder (Acute) Advance directive on file (Acute) Atrial fibrillation with RVR (Acute) Acute diastolic CHF (congestive heart failure) (Acute) Bilateral nephrolithiasis (Chronic) Steroid dependent (Chronic) IDDM (insulin dependent diabetes mellitus) (Chronic) Diarrhea (Acute) UTI (urinary tract infection) (Acute) Dehydration (Acute) Ureterolithiasis (Acute) Hyperglycemia (Acute) Hyperglycemia due to type 1 diabetes mellitus (Acute) Gastrointestinal bleeding (Acute) C. difficile colitis (Acute) Duodenal ulcer (Acute) Medical History Palliative care patient Rheumatoid arteritis Hx of hyperlipidemia HTN (hypertension) Diabetes Atrial fibrillation Surgical History History of cystoscopy History of hysterectomy Hx of cholecystectomy Family History Mother , in her late 60s from endometrial cancer Endometrial cancer Obesity Father , in his early 70s from alcoholic cirrhosis Alcohol abuse Cirrhosis, alcoholic Sister , in her early 70s from cervical cancer Cervical cancer Brother , age 60 from lung cancer Lung cancer Smoker Brother , age 50 from AIDS, history of IVDU AIDS IVDU (intravenous drug user) Brother , age 22 from suicide Suicide Brother , in psychiatric hospital ? COD IVDU (intravenous drug user) Daughter No problems noted. 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, 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, 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, 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 Pets and animals: Yes Pets and animals: cat(s) and dog(s) Do you think of yourself as: straight/heterosexual Current gender identity: female What is your relationship status?: How often do you talk on the phone with friends or family?: twice per week How often do you get together with friends or relatives?: twice per week Panel score (0-1 are the most socially isolated patients): 2 What type of physical activity do you participate in: assisted ambulation and sedentary lifestyle Frequency: does not exercise Special terra needs: No Seatbelt use: always Water heater temp set <120 deg: Yes Working smoke detector in home: Yes Fire extinguisher in home: Yes Firearms in home: Yes Do you feel safe at home: Yes Do you feel safe in your relationship?: Yes SDOH(Care Management) Screening Will the Patient Participate in the Screening?: Yes Do you worry about having a steady place to live?: no Problems where you live: no known problems In the past 12 months, have you had to go without electric, gas, oil or water in your home?: no Have you or anyone in your house had to go without enough food to eat?: no Has lack of transportation kept you from medical appointments or from doing things needed for daily living?: no Has anyone in your support network made you feel unsafe for any reason?: no
--- NOTE | 2023-05-19 09:05 | PGE_ITS ---
Date of Service Date of service: 05/19/23 Time of Service: 09:05 Assessment and Plan Assessment and plan (1) Atrial fibrillation with RVR: Status: Acute Assessment and plan: Continue metoprolol XL. D/c cardizem gtt, continue PO cardizem at home dose. Continue home xarelto. (2) Acute on chronic diastolic CHF (congestive heart failure), NYHA class 1: Status: Acute Assessment and plan: Continue diuresis. Echo 03/17/23: LVEF 50-55%, diastolic function indeterminate. (3) Hypokalemia: Status: Resolved Assessment and plan: Recheck in am (4) Hypomagnesemia: Status: Resolved Assessment and plan: Recheck in am. (5) Type 2 diabetes mellitus with hyperglycemia: Status: Chronic Assessment and plan: Add long acting insulin to SSI. The patient is normally on metformin which is on hold due to receiving IV contrast in the ED with the CTA of the chest yesterday. (6) DVT prophylaxis: Status: Acute Assessment and plan: On xarelto (7) Discharge planning issues: Status: Acute Assessment and plan: The patient is not sure about her code status and would like to not make this decision at this time. Until she is able to have this discussion, she is considered full code. PT and palliative care are consulted. Anticipate transfer out of the ICU later today. Disposition will depend on a safe discharge plan with patient receiving her medications in a controlled manner at home. I think she would do quite well in an assisted living setting, but the patient would not consider anything but home. Discussed with care management. Subjective Subjective Interval history since last seen: Ms Chester is short of breath this morning, but it's her usual shortness of breath, not anymore. Denies dizziness, CP, nausea, abdominal pain. Inquiring when she can go home. I answered that we need to talk to her daughter to devise a plan for her to take her medications reliably. Reports dysuria. She remains in Afib with HR 80s-90s. Exam Narrative Exam Narrative: General: Elderly obese female who is A&Ox3, somnolent, but easily arousable, looks better HEENT: EOMI, MMM, upper airway wheeze Cardiovascular: irregularly irregular rhythm, no m/r/g Lungs: not tachypneic today, faint crackles at B bases, upper airway wheeze Gastrointestinal: soft, nontender, nondistended Extremities: +1 BLE edema, no c/c, trace pedal pulses B Objective Last Vital Signs Temp 36.6 C 05/19/23 04:00 Pulse 106 H 05/19/23 04:00 Resp 25 H 05/19/23 06:01 BP 131/81 05/19/23 04:00 Pulse Ox 92 05/19/23 06:01 Laboratory Results - last 24 hr 05/18/23 05/18/23 05/18/23 07:40 08:48 12:00 WBC RBC Hgb Hct MCV MCH MCHC RDW Plt Count MPV Immature Gran % Neutrophils % Lymphocytes % Monocytes % Eosinophils % Basophils % Nucleated RBC % Absolute Neutrophils Absolute Lymphocytes Absolute Monocytes Absolute Eosinophils Absolute Basophils Sodium Potassium Chloride Carbon Dioxide Anion Gap BUN Creatinine Est GFR (CKD-EPI 2020) Glucose Calcium Magnesium Troponin I < 50 NT-Pro-B Natriuret Pep 4589 H SARS-CoV-2 (PCR) Negative 05/18/23 05/19/23 13:50 05:40 WBC 9.74 RBC 4.05 Hgb 11.8 Hct 36.4 MCV 90 MCH 29.1 MCHC 32.4 RDW 13.5 Plt Count 480 H MPV 10.7 Immature Gran % 0.3 Neutrophils % 74.2 Lymphocytes % 14.9 Monocytes % 8.1 Eosinophils % 2.1 Basophils % 0.4 Nucleated RBC % 0.0 Absolute Neutrophils 7.23 H Absolute Lymphocytes 1.45 Absolute Monocytes 0.79 Absolute Eosinophils 0.20 Absolute Basophils 0.04 Sodium 135 L Potassium 3.8 Chloride 93 L Carbon Dioxide 31.2 Anion Gap 10.8 BUN 11 Creatinine 1.3 H Est GFR (CKD-EPI 2020) 42.09 Glucose 262 H Calcium 8.4 L Magnesium 1.9 Troponin I < 50 NT-Pro-B Natriuret Pep SARS-CoV-2 (PCR) Time Spent with Patient Time Spent with Patient: 35-49 minutes Time was spent: preparing to see the patient(eg.review tests), obtaining and/or reviewing separately otained hiistory, ordering medications,tests, procedures, referring, communicating with other health career development counselor, indepentently interpreting results, counseling the patient and care coordination
--- NOTE | 2023-05-19 09:29 | PT.INIE ---
PT Notes Visit Reasons: Acute on chronic diastolic CHF, Afib with RVR,CP, Physical Therapy Inpatient Initial Evaluation Date: 05/19/2022 Referring Doctor: Sapna Bro MD PT Orders: PT CONSULT: Limited ability Precautions: Fall. Standard. Activity as tolerated. Patient Profile/Admitting Diagnosis: Elizabeth is a 78-year-old female who presented to the ED on 05/18/2023 due toworsening shortness of breath. She id admitted at ICU [facility] for management of AF with RVR, acute on chroninc diastolic congestive heart failure, hypokalemia, and hypomagnesemia. PMHX: All Active Problems (Updated 05/18/23 @ 14:57 by Sapna Bro MD) Discharge planning issues (Acute) DVT prophylaxis (Acute) Acute on chronic diastolic CHF (congestive heart failure), NYHA class 1 (Acute) Hypomagnesemia (Acute) CHF (congestive heart failure) (Chronic) Hypokalemia (Acute) Atrial fibrillation with RVR (Acute) Grief reaction (Chronic) Counseling regarding advance care planning and goals of care (Acute) Palliative care encounter (Acute) Acute duodenitis (Acute) Heme + stool (Acute) Dizziness (Acute) Hyperglycemia (Acute) Mild cognitive impairment (Acute) Non-adherence to medical treatment (Acute) Advanced care planning/counseling discussion (Acute) Type 2 diabetes mellitus with hyperglycemia (Chronic) STEMI (ST elevation myocardial infarction) (Acute) Cardiac catheterization performed 11/02. There is single-vessel disease. Recannulization was not successful. Lifelong anticoagulation with dual antiplatelet therapy. COVID (Acute) Recurrent UTI (Acute) History of cervical cancer (Acute) Insomnia (Acute) Goals of care, counseling/discussion (Acute) Wheelchair dependent (Chronic) motorizedLaceration of ankle, right (Acute) Fracture of toe of right foot (Acute) Cellulitis (Acute) Poorly controlled type 2 diabetes mellitus (Acute) UTI (urinary tract infection) (Acute) Hydronephrosis with renal calculous obstruction (Chronic) Calculus of proximal right ureter (Acute) Diabetes (Chronic) Atrial fibrillation (Chronic) Hypokalemia (Chronic) Psychogenic polydipsia (Chronic) UTI (urinary tract infection) (Acute) Weakness (Acute) Adjustment disorder (Acute) Advance directive on file (Acute) Atrial fibrillation with RVR (Acute) Acute diastolic CHF (congestive heart failure) (Acute) Bilateral nephrolithiasis (Chronic) Steroid dependent (Chronic) IDDM (insulin dependent diabetes mellitus) (Chronic) Diarrhea (Acute) UTI (urinary tract infection) (Acute) Dehydration (Acute) Ureterolithiasis (Acute) Hyperglycemia (Acute) Hyperglycemia due to type 1 diabetes mellitus (Acute) Gastrointestinal bleeding (Acute) C. difficile colitis (Acute) Duodenal ulcer (Acute) Medical History Palliative care patient Rheumatoid arteritis Hx of hyperlipidemia HTN (hypertension) Diabetes Atrial fibrillation Surgical History History of cystoscopy History of hysterectomy Hx of cholecystectomy Social History/Home Situation: just passed a month ago. Modified independent with stand pivot and maryse-step transfers while holding onto armrests/edge of bed. Main mode of mobility indoors and outdoors is her motorized wheelchair. Able to prepare meals and do independent self-care. has a construction pit worker who comes in twice a week. Equipment Owned/DME: Motorized wheelchair, handicap-accessible home, FWW, SPC Subjective: Feels that she is almost at baseline with transfers at this time. Refuses to use FWW. Wondering when she could go home. Objective: General Observation: Seated on chair. High BMI. Telemetry monitoring in place. Connell catheter in place. On O2 supplementation via NC Mental Status: Alert and oriented as to person, place, time, and purpose. Able to pay attention, focus, and respond appropriately. Pain: Chronic minimal to severe pain in B hips and knees with weight bearing Vital Signs: Closely monitored via tele ROM: Right Upper Extremity: Shoulder Flexion WFL. Shoulder abduction WFL. Elbow flexion WFL. Wrist flexion WFL. Functional opening and closing of hand WFL. Left Upper Extremity: Shoulder Flexion WFL. Shoulder abduction WFL. Elbow flexion WFL. Wrist flexion WFL. Functional opening and closing of hand WFL. Right Lower Extremity: Hip flexion WFL. Hip abduction WFL. Knee flexion 30 degrees to 90 degrees. Knee extension -30 degrees. Ankle dorsiflexion to neutral only. Ankle plantarflexion WFL. Left Lower Extremity: Hip flexion WFL. Hip abduction WFL. Knee flexion 30 degrees to 90 degrees. Knee extension -30 degrees. Ankle dorsiflexion to neutral only. Ankle plantarflexion WFL. Strength: Right Upper Extremity: Shoulder flexors 4/5. Shoulder abductors 4/5. Elbow flexors 4/5. Elbow extensors 4/5. Buffing Turner And Counter strong. Left Upper Extremity: Shoulder flexors 4/5. Shoulder abductors 4/5. Elbow flexors 4/5. Elbow extensors 4/5. Buffing Turner And Counter strong. Right Lower Extremity: Hip flexors 4-/5. Hip abductors 4-/5. Knee flexors 3-/5. Knee extensors 3-/5. Ankle dorsiflexors 3-/5. Ankle plantarflexors 3/5. Left Lower Extremity: Hip flexors 4-/5. Hip abductors 4-/5. Knee flexors 3-/5. Knee extensors 3-/5. Ankle dorsiflexors 3-/5. Ankle plantarflexors 3/5. Bed Mobility/Transfers: Minimal cueing provided for use of B hands as needed for support, movement sequence, AD management, and posture to reduce fall risk and minimize pain report Sit to supine independent but with report of pain in B hips and knees Sit to stand set up assist only to allow patient to push down at edge of bed and hold onto chair armrest for support Stand to sit set up assist only to allow patient to push down at edge of bed and hold onto chair armrest for support Reclining chair to bed set up assist only to allow patient to push down at edge of bed and hold onto chair armrest for support, unable to stand up fully, transfers in a squat position, refuses to use FWW Gait: Only able to tolerate up to 1-2 steps to transfer chair<>bed. Refuses to use walker despite education on safety. Balance: Static Sitting: Normal Dynamic Sitting: Normal Static Standing: Fair Dynamic Standing: Poor Special Tests: Mobility Limitations Standardized Measure [facility] AM-PAC 6 clicks Basic Mobility Inpatient Short Form: Raw Score: 18 CMS Score: 47% deficit Informed Consent/Education: Patient was instructed in purpose of PT consult and plan of care. Declines PT services as patient is at baseline mobility level. Patient states that she is almost at baseline with transfers. Somewhat prejudiced about doing exercises as doing them adds to her pain. ASSESSMENT: Patient requires set up assist for this session to ensure that chair is placed close enough so she can push down onto chair armrest to squat and pivot to edge of bed. Remains in pain in B hips and knees due to chronic arthritis compounded by by high BMI. At home, she is able to park her motorized wheelchair close enough to provide adequate support that allows the most minimal time for weight bearing. Has all the equipment she needs at home. Has a construction pit worker that comes in to help with chores and laundry. Patient presents with clinical signs and symptoms consistent with current/admitting diagnoses that have resulted to mobility limitations, gait instability, generalized weakness, and overall ADL decline as demonstrated by the following impairment level findings: 1. Decreased strength to B UE/LE major muscle groups (chronic) 2. Impaired sitting/standing balance 3. Impaired activity tolerance 4. Limitation of joint range of motion in B knees and ankles due to arthritis 5. Minimal to moderate pain in B hips and knees with weight bearing due to chronic arthritis Impairments are contributing to the following functional limitations: 1. Uses motorized wheelchair for all mobility to minimize pain in B hips and knees from OA Patient is assessed as a 80365 moderate complexity based on the following: History: 77-year-old female with past medical history as indicated above Examination: Demonstrable impairment in strength, balance, and mobility level with underlying impairments and functional limitations as exhibited above as well as deficit score of 47% utilizing the [facility] Mobility Inpatient Short Form Presentation: Stable Decision Makin moderate complexity Goals: Goals X1 week 1. Bed-Chair independent with FWW 2. Chair-Bed independent with FWW 3. Fair static and dynamic standing balance/tolerance Plan of Care/Treatment Plan: 1-2x/day, 7 days/week x 1 week. Plan of care has been reviewed with the POULTRY HANGER providing the service under Physical Therapy direction. Initiate Physical Therapy intervention for pain management as needed, strengthening, transfers, balance training, and use of assistive device. DISCHARGE RECOMMENDATIONS: [] Home with no services [] [X] Home with services. Patient will benefit from home health PT services in order to progress mobility level using least restrictive assistive ambulatory device, assess home safety, identify additional equipment needs, and establish a functional maintenance program that will increase ability of patient to remain at home. [] Home with outpatient PT [] [] SNF for continued rehabilitation [] [] Assisted Care [] [] SNF versus LTC based on ability to participate and progress [] TREATMENT CODE/TIME: 14061 x 17 minutes for 1 unit (9:29-9:46 AM). Thank you for the opportunity to participate in the care of this patient. Serenity Dumas PT, DPT, CLT [facility] [place], [place]
[2023-05-19] MEDS: Normal Saline Flush 10 ML SYR IVP (09:38)
[2023-05-19] MEDS: Insulin Glargine 300 UNITS/3 ML PEN 10 UNITS SC (09:49)
--- NOTE | 2023-05-19 12:01 | W.INDIABCONS ---
Date of service: 05/19/23 Time of Service: 10:00 Diabetes Inpatient Consult Reason for Visit: Routine consult re: Diabetes Education DESCRIPTION/ASSESSMENT: Pt is 78yo female admitted for acute on chronic diastolic CHF, Afib with RVR, hypokalemia and hypomagnesemia, with a Hx of DMII. She lives at home alone after her recently passed in March - does the shopping, cooking but is wheelchair bound which complicates her ability to have consistent healthy meals. Was on insulin and now just metformin. Per provider note, she has not been compliant with most of her meds recently and this could be part of the reason her glucose has been high (262mg/dL fasting glucose this morning). Most recent A1X was 10.2% in march. Ordered for heart healthy/cho consistent diet with normal consistencies - reviewed this with pt. Hx of vitamin D deficiency.Pt with fair to good po intake through her admission here last February - has been fair so far this admission - weight has been stable. States she has not been checking glucose at home recently -lost her glucometer and has not been ordered another one yet. I asked if she knows symtoms of hyper/hypoglycemia and she was able to communicate low glucose sx. Will ask provider to ensure glucometer is on discharge orders. INTERVENTION: Offered to go over some diabetes education topics with pt but she declines at this time, saying she has been managing for a long time and knows what she needs to do. PLAN: Offered outpt diabetes education and management help when she feels like she might like to sit and discuss. Will monitor intake, wts, labs for any significant changes which might alter pt's nutrition care plan Time Spent in Nutritional Counseling and Treatment: 15 minutes face to face
[2023-05-19 12:29] LABS: Bilirubin Negative (Negative); Blood Small (Negative); Clarity Clear (Clear); Glucose Negative (Negative); Ketones Negative (Negative); Leukocyte Esterase Large (Negative); Nitrite Negative (Negative); Urobilinogen 0.2 mg/dL (Up to 0.2)
[2023-05-19 12:44] LABS: Epithelial Cells Moderate HPF (Negative); RBC 0-2 HPF (0-2); WBC 20-50 HPF (0-5)
[2023-05-19 12:45] LABS: Bacteria Few HPF (Negative); C & S Indicated? No/Sq. Contamination; Casts Negative LPF (Negative); Crystals Negative HPF (Negative); Mucus Negative (Negative); Other Cells Moderate Yeast (Negative)
[2023-05-19] MEDS: LORazepam 0.5 MG TAB PO (16:36)
[2023-05-19] MEDS: Rivaroxaban 15 MG TABLET PO (16:36)
[2023-05-19] MEDS: Fosfomycin Tromethamine 3 GM PACKET PO (18:45)
--- NOTE | 2023-05-19 18:53 | DSE_ITS ---
Date of service: 05/19/23 Time of Service: 18:53 DS: Diagnosis Discharge Diagnosis (1) Atrial fibrillation with RVR: Status: Acute (2) Acute on chronic diastolic CHF (congestive heart failure), NYHA class 1: Status: Acute (3) Bilateral pleural effusion: Status: Acute (4) Hypokalemia: Status: Resolved (5) Hypomagnesemia: Status: Resolved (6) Type 2 diabetes mellitus with hyperglycemia: Status: Chronic (7) UTI (urinary tract infection): Status: Acute Discharge Plan Disposition Patient Disposition: Against Medical Advice Condition: Critical Condition: Stable Discharge Details Reason For Visit: Acute on chronic diastolic CHF, Afib with RVR,CP, Admit Date/Time: 05/18/23 11:05 Admit Provider: Sapna Bro Attending Provider: Sapna Bro Primary Care Provider: Marleen Warren [facility] Hospital Course: Ms Chester is a 78 year old female with PMHx of medical noncompliance, Afib, CHFpEF, DM2, noncompliant with insulin, who was admitted to [facility] ICU under the hospitalist service on 05/18/23 with rapid afib and acute on chronic diastolic CHF due to not taking her medications. PE was ruled out with a negative CTA. There may be a component of a grief reaction to her noncompliance as her a month ago, but we know Ms Chester to have had these behaviors even while he was alive. The patient was treated with IV cardizem infusion, but essentially just needed to be resumed on her outpatient therapy. She did receive intravenous diuretics. She received fosfomycin for her UTI. No safe disposition plan could be made without her family's consent to participate in at least reminding the patient to take her medications, as she lives alone, but as the patient is leaving against medical advice, no formal plans have been made. The daughter did report to the care management her concern that the patient was not taking her medications due to wanting to . Based on this report, mental health was consulted and evaluated the patient and cleared her for discharged home. 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 The patient would not consider any disposition other than home where she lives alone. Care management was planning to involve her case management in the community to come up with a safe discharge plan. She left the hospital AMA today, with her daughter's picking her up. No new prescriptions were given. Home Meds and New Rx's Prescriptions: No Action oxycodone 10 mg tablet 10 mg PO TID PRN PRN sulfamethoxazole-trimethoprim 400-80 mg tablet 1 tab PO DAILY Qty: 90 3RF Rx Instructions: Prophylactic antibiotic for UTI prevention magnesium oxide 400 mg (241.3 mg magnesium) tablet 400 mg PO DAILY furosemide [Lasix] 20 mg tablet 20 mg PO QPM Rx Instructions: 1 tablet by mouth every evening metoprolol succinate 200 mg capsule,sprinkle,ER 24hr 200 mg PO DAILY trazodone 50 mg tablet 50 mg PO HS melatonin 10 MG capsule 10 mg PO HS prednisone 5 MG tablet 5 mg PO DAILY Calcium 600 + D(3) 600 mg calcium- 200 unit Capsule 1 cap PO DAILY vitamin B complex Tablet 1 tab PO DAILY tamsulosin 0.4 mg Capsule 0.4 mg PO DAILY Qty: 14 0RF Saccharomyces boulardii [Florastor] 250 mg capsule 250 mg PO BID Qty: 14 0RF diltiazem HCl 300 mg capsule,extended release 24hr 300 mg PO DAILY fluoxetine 20 mg capsule 20 mg PO DAILY Patient Comments: TAKE ONE CAPSULE BY MOUTH EVERY DAY leflunomide 10 mg tablet 10 mg PO DAILY rosuvastatin 20 mg tablet 20 mg PO HS nitroglycerin 0.4 mg tablet, sublingual 0.4 mg sublingual Q5M PRN Xarelto 15 mg tablet 15 mg PO QPM Rx Instructions: daily with the evening meal pantoprazole 40 mg Tablet,Delayed Release (Dr/Ec) 40 mg PO DAILY metformin 500 mg tablet extended release 24 hr 500 mg PO DAILY Adults 50 Plus 0.4 mg-300 mcg- 250 mcg tablet 1 tab PO DAILY cyanocobalamin (vitamin B-12) 1,000 mcg tablet 1,000 mcg PO DAILY vitamin B complex Capsule 1 cap PO DAILY Multivitamin 50 Plus Tablet 1 tab PO DAILY Patient Comments: Take 1 tablet by mouth once a day Discharge Instructions Care Plan Goals: Home health services: RN, PT, OT, STAFF COUNSEL. Referrals: Marleen Warren MD [Primary Care Provider] - Activity:: Activity as Tolerated Equipment/Supplies:: No Equipment Needed Diet:: consistent carb heart healthy Discharge Orders Discharge Orders: Discharge Order (Routine); Ordered 05/19/23 Ordered By: Sapna Bro Discharge Data Discharge Date/Time-TO BE ENTERED AT DEPARTURE: 05/19/23 18:45 DS: Summary Time Spent with Patient providing and/or coordinating discharge services: Greater than 30 minutes Status at Discharge Functional status at discharge: wheelchair bound Overall status at discharge: patient is back to baseline Mental Status: mental status grossly normal Speech and Movement: speech and movement normal Mood: congruent mood Affect: normal affect Quality:SDOH Health Related Social Needs: No Data to Display Exam Narrative Exam Narrative: General: Elderly obese female who is A&Ox3, somnolent, but easily arousable, looks better HEENT: EOMI, MMM, upper airway wheeze Cardiovascular: irregularly irregular rhythm, no m/r/g Lungs: not tachypneic today, faint crackles at B bases, upper airway wheeze Gastrointestinal: soft, nontender, nondistended Extremities: +1 BLE edema, no c/c, trace pedal pulses B Psych Mental Status: mental status grossly normal Speech and Movement: speech and movement normal Mood: congruent mood Affect: normal affect DS: Data Vitals/I&O Vitals and I&O: Vital Signs Temperature 36.1 C L 05/19/23 14:22 Temperature Source Temporal Artery Scan 05/18/23 20:31 Pulse 77 05/19/23 17:46 Pulse 90 05/19/23 17:46 Respiratory Rate 24 05/19/23 17:46 Respiratory Effort Short of Breath, Labored, Incrsd Work of Breathing 05/19/23 16:15 Respiratory Depth Deep 05/19/23 16:15 Respiratory Pattern Tachypnea 05/19/23 16:15 Blood Pressure 139/77 05/19/23 17:46 Blood Pressure Mean 96 05/19/23 17:46 Blood Pressure Position Supine 05/18/23 17:55 Pulse Oximetry 95 05/19/23 17:46 Oxygen Delivery Method Nasal Cannula 05/18/23 20:31 Oxygen Flow Rate 2 05/18/23 20:31 Pain Level 0 05/19/23 08:30 Comment pt refusing blood pressure cuff 05/19/23 06:01 Intake & Output 05/18/23 05/19/23 05/19/23 23:59 11:59 23:59 Intake Total 1370.333 / 6840.310 8509 / 1785 370 / 1785 Output Total 850 / 850 1115 / 1840 725 / 1840 Balance 520.333 / 635.000 300 / -55 -355 / -55 Weight 110.1 kg 110.5 kg Intake: IV 460.333 / 575.000 145 / 175 30 / 175 Oral 910 / 910 1270 / 1610 340 / 1610 Output: Urine 850 / 850 1115 / 1840 725 / 1840 Other: Urine Color Yellow Light Anna Yellow Urine Appearance Clear Sediment Clear Urine Odor None Normal None Comment Mixed w/ stool Mixed w/ stool Stool Size Moderate Smear Moderate Stool Characteristics Formed Formed Formed Brown Brown Brown Voiding Methods Bedside Commode Data Completed and Pending Pending studies at discharge: CTA chest: 1. Significant deterioration in the appearance of the lungs when compared to the uppermost images of a recent abdominal CT scan performed 03/16/2023. There are now new non loculated bilateral pleural effusions, right larger than left and what appears to be pulmonary edema pattern. 2. Cardiomegaly. No pericardial effusion. 3. Right 9th and 10th ribs findings as described above which may represent artifact due to motion. 2 centimeter right thyroid lobe nodule noted. Can be further studied with nonemergent ultrasound. Labs on day of discharge: Labs from last 24 hours 05/19/23 05/19/23 11:55 05:40 WBC 9.74 RBC 4.05 Hgb 11.8 Hct 36.4 MCV 90 MCH 29.1 MCHC 32.4 RDW 13.5 Plt Count 480 H MPV 10.7 Immature Gran % 0.3 Neutrophils % 74.2 Lymphocytes % 14.9 Monocytes % 8.1 Eosinophils % 2.1 Basophils % 0.4 Nucleated RBC % 0.0 Absolute Neutrophils 7.23 H Absolute Lymphocytes 1.45 Absolute Monocytes 0.79 Absolute Eosinophils 0.20 Absolute Basophils 0.04 Sodium 135 L Potassium 3.8 Chloride 93 L Carbon Dioxide 31.2 Anion Gap 10.8 BUN 11 Creatinine 1.3 H Est GFR (CKD-EPI 2020) 42.09 Glucose 262 H Calcium 8.4 L Magnesium 1.9 Urine Color Yellow Urine Clarity Clear Urine pH 6.0 Ur Specific Harcourt 1.010 Urine Protein Negative Urine Ketones Negative Urine Blood Small H Urine Nitrite Negative Urine Bilirubin Negative Urine Urobilinogen 0.2 Ur Leukocyte Esterase Large H Urine RBC 0-2 Urine WBC 20-50 H Ur Epithelial Cells Moderate Urine Crystals Negative Urine Bacteria Few Urine Casts Negative Urine Mucus Negative Urine Other Moderate Yeast Ur Culture Indicated? No/Sq. Contamination Urine Glucose Negative PFSH All Active Problems (Updated 05/19/23 @ 19:03 by Sapna Bro MD) Bilateral pleural effusion (Acute) Discharge planning issues (Acute) DVT prophylaxis (Acute) Acute on chronic diastolic CHF (congestive heart failure), NYHA class 1 (Acute) CHF (congestive heart failure) (Chronic) Atrial fibrillation with RVR (Acute) Grief reaction (Chronic) Counseling regarding advance care planning and goals of care (Acute) Palliative care encounter (Acute) Acute duodenitis (Acute) Heme + stool (Acute) Dizziness (Acute) Hyperglycemia (Acute) Mild cognitive impairment (Acute) Non-adherence to medical treatment (Acute) Advanced care planning/counseling discussion (Acute) Type 2 diabetes mellitus with hyperglycemia (Chronic) STEMI (ST elevation myocardial infarction) (Acute) Cardiac catheterization performed 11/02. There is single-vessel disease. Recannulization was not successful. Lifelong anticoagulation with dual antiplatelet therapy. COVID (Acute) Recurrent UTI (Acute) History of cervical cancer (Acute) Insomnia (Acute) Goals of care, counseling/discussion (Acute) Wheelchair dependent (Chronic) motorized Laceration of ankle, right (Acute) Fracture of toe of right foot (Acute) Cellulitis (Acute) Poorly controlled type 2 diabetes mellitus (Acute) UTI (urinary tract infection) (Acute) Hydronephrosis with renal calculous obstruction (Chronic) Calculus of proximal right ureter (Acute) Diabetes (Chronic) Atrial fibrillation (Chronic) Hypokalemia (Chronic) Psychogenic polydipsia (Chronic) UTI (urinary tract infection) (Acute) Weakness (Acute) Adjustment disorder (Acute) Advance directive on file (Acute) Atrial fibrillation with RVR (Acute) Acute diastolic CHF (congestive heart failure) (Acute) Bilateral nephrolithiasis (Chronic) Steroid dependent (Chronic) IDDM (insulin dependent diabetes mellitus) (Chronic) Diarrhea (Acute) UTI (urinary tract infection) (Acute) Dehydration (Acute) Ureterolithiasis (Acute) Hyperglycemia (Acute) Hyperglycemia due to type 1 diabetes mellitus (Acute) Gastrointestinal bleeding (Acute) C. difficile colitis (Acute) Duodenal ulcer (Acute) Medical History Palliative care patient Rheumatoid arteritis Hx of hyperlipidemia HTN (hypertension) Diabetes Atrial fibrillation Surgical History History of cystoscopy History of hysterectomy Hx of cholecystectomy Family History Mother , in her late 60s from endometrial cancer Endometrial cancer Obesity Father , in his early 70s from alcoholic cirrhosis Alcohol abuse Cirrhosis, alcoholic Sister , in her early 70s from cervical cancer Cervical cancer Brother , age 60 from lung cancer Lung cancer Smoker Brother , age 50 from AIDS, history of IVDU AIDS IVDU (intravenous drug user) Brother , age 22 from suicide Suicide Brother , in psychiatric hospital ? COD IVDU (intravenous drug user) Daughter No problems noted. 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, 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, 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, 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 Pets and animals: Yes Pets and animals: cat(s) and dog(s) Do you think of yourself as: straight/heterosexual Current gender identity: female What is your relationship status?: How often do you talk on the phone with friends or family?: twice per week How often do you get together with friends or relatives?: twice per week Panel score (0-1 are the most socially isolated patients): 2 What type of physical activity do you participate in: assisted ambulation and sedentary lifestyle Frequency: does not exercise Special terra needs: No Seatbelt use: always Water heater temp set <120 deg: Yes Working smoke detector in home: Yes Fire extinguisher in home: Yes Firearms in home: Yes Do you feel safe at home: Yes Do you feel safe in your relationship?: Yes Time Spent with Patient Time Spent with Patient: 45-69 minutes Time was spent: preparing to see the patient(eg.review tests), obtaining and/or reviewing separately otained hiistory, ordering medications,tests, procedures, referring, communicating with other health administrator health care facility, indepentently interpreting results, counseling the patient and care coordination
== END 2023-05-19 18:45 | disposition left against medical advice (07) | DRG 291 ==
LOC: ER 11:01 → ICU 12:31
PROVIDERS: Admitting Provider Internal Medicine; Emergency Provider Student in an Organized Health Care Education/Training Program; PCP Family Medicine; Visit Provider Internal Medicine
DX: I11.0 Hypertensive heart disease with heart failure (principal); I50.33 Acute on chronic diastolic (congestive) heart failure; N39.0 Urinary tract infection, site not specified; I48.91 Unspecified atrial fibrillation; E87.6 Hypokalemia; E83.42 Hypomagnesemia; E11.65 Type 2 diabetes mellitus with hyperglycemia; Z79.01 Long term (current) use of anticoagulants; G31.84 Mild cognitive impairment of uncertain or unknown etiology; Z91.198 Patient's noncompliance with other medical treatment and regimen for other reason; I25.2 Old myocardial infarction; G47.00 Insomnia, unspecified; Z99.3 Dependence on wheelchair; Z87.891 Personal history of nicotine dependence
CPT/HCPCS: 00123; 36415; 71275; 80048; 80053; 87635; 93005; 96365; 96366; 96368; 96375; 97162; 99291; 81003; 81015; 83735; 83880; 84484; 85025; 93010; 94667; 99223; 99239; J1815; J1940; J1941; J3475; J3480; J3490; J7512